=== PATIENT | male | born 1940 | race African-American/Black ===

== ENCOUNTER → 2016-10-11 | Outpatient (CLI) | payer BC ==
[~2016-10-11] MED LIST: ATOR-26 PO; CALC500C70 PO; CELE100C PO; DABI150C PO; FERR1TAB23 PO; FURO-85 PO; GABA400C PO; GLC500 PO; GLCSC750600 PO; LISI-725 PO; METH500T PO; METO25TA56 PO; OXYC-609; OXYC1TAB3 PO; PRLSR20 PO; ZNF/4 PO; [UNRECOGNIZED DRUG - OTHER] PO
== END | disposition home or self-care (01) ==
LOC: C.RDSM 11:40
PROVIDERS: ATTEND Physical Medicine & Rehabilitation
DX: M43.16 Spondylolisthesis, lumbar region (principal)

== ENCOUNTER → 2016-10-31 | Day surgery (SDC) | payer BC ==
[2016-10-18 15:51] VITALS: Ht 180.3 cm; Wt 81.8 kg
[~2016-10-31] VITALS: Ht 180.3 cm; Wt 81.8 kg
[~2016-10-31] MED LIST changes: -GLC500 PO; +IOPAMIDOL INJ 61% 15 ML VIAL ONE; +LIDOCAINE HCL 1% MPF 5 ML VIAL ONE; +SODIUM CHLORIDE 0.9% INJ 10 ML VIAL ONE; -ZNF/4 PO
[2016-10-31 14:08] VITALS: BP 124/71; PULSE 50; TEMP 36.7; O2SAT 98
== END | disposition home or self-care (01) ==
LOC: X.SURG 13:50
PROVIDERS: ATTEND Physical Medicine & Rehabilitation
DX: M43.16 Spondylolisthesis, lumbar region (principal); Z53.09 Procedure and treatment not carried out because of other contraindication; M54.16 Radiculopathy, lumbar region; K21.9 Gastro-esophageal reflux disease without esophagitis; E11.9 Type 2 diabetes mellitus without complications; I10 Essential (primary) hypertension; E78.9 Disorder of lipoprotein metabolism, unspecified; Z90.49 Acquired absence of other specified parts of digestive tract; Z98.890 Other specified postprocedural states

== ENCOUNTER → 2016-12-05 | Day surgery (SDC) | payer BC ==
[2016-11-08 07:32] VITALS: Ht 180.3 cm; Wt 81.8 kg
[~2016-12-05] VITALS: Ht 180.3 cm; Wt 81.8 kg
--- NOTE | 2016-12-05 14:47 | History & Physical Bridge - [place] ---
H&P Re-Evaluation Bridge Note: I have examined the patient, reviewed the History & Physical and in the interval since the performance of the History & Physical I have noted the following changes of clinical significance: No changes noted
--- NOTE | 2016-12-05 15:24 | Discharge Instructions ---
Discharge Instructions Date of Service Dec 05, 2016. Visit Reason for Visit: Lumbar Radiculopathy Discharge Discharge Diagnosis / Problem: Right leg pain Discharge Goals Goal(s): Decrease discomfort, Improve function Medications Stopped Medications Name(s): Per pt stopped taking pradaxa 3 days ago as instructed. Activity Recommendations Activity Limitations: resume your previous activity Anesthesia . Post Anesthesia Instructions: If you have had General Anesthesia or IV Sedation: * Do not drive today. * Resume driving when surgeon permits. * Do not make important decisions or sign legal documents today. * Call surgeon for: 1. Temperature elevations greater than 101 degrees F. 2. Uncontrollable pain. 3. Excessive bleeding. 4. Persistent nausea and vomiting. 5. Medication intolerance (nausea, vomiting or rash). * For nausea and vomiting use only clear liquids such as: tea, soda, bouillon until nausea subsides, then gradually increase diet as tolerated. * If you have any concerns or questions, call your surgeon's office. If physician is unavailable and it is an emergency, call 911 or go to the nearest emergency room. . Diet Recommendations Recommended Home Diet: resume previous diet Procedures Procedures Performed: Lumbar Epidural Steroid Injection Pending Studies Studies pending at discharge: no Medical Emergencies . Who to Call and When: Medical Emergencies: If at any time you feel your situation is an emergency, please call 911 immediately. . Non-Emergent Contact Non-Emergency issues call your: Specialist . . "Provider Documentation" section prepared by Ronnie Hanley. .
[2016-12-05 15:26] VITALS: TEMP 36.8
[2016-12-05 15:33] VITALS: BP 117/71; PULSE 58; O2SAT 96
--- NOTE | 2016-12-05 17:18 | OPERATIVE REPORT ---
DATE OF OPERATION: 12/05/2016 PREOPERATIVE DIAGNOSIS: Lumbar spondylolisthesis with a grade 1 L4-L5, grade 2 L3-L4 with a right L5 radiculopathy. POSTOPERATIVE DIAGNOSIS: Same. PROCEDURE: Right paramedian L5-S1 intralaminar epidural steroid injection under fluoroscopic guidance. INDICATIONS: The patient is a 75-year-old -[place] male presents today with right lower extremity radiculopathy. He has had a lumbar decompression of his back, which was postoperatively complicated by spondylolisthesis. He has persistent right lower extremity radicular pain. He presents today for an injection to provide him with relief as he had gotten nice relief from the epidural a number of months ago, the effect has worn off. PHYSICAL EXAMINATION: GENERAL: Pleasant male seated comfortably. MUSCULOSKELETAL: Lumbar paraspinal muscles were palpated. He has difficulty moving from a sit to stand position. He has no focal weakness and negative seated straight leg raises. CONSENT: Verbal and written consent was obtained from the patient. Risks and benefits were reviewed. Risks include but are not limited to abscess, epidural abscess, epidural hematoma, allergic reaction, and dural puncture. The patient wishes to proceed. DESCRIPTION OF PROCEDURE: The patient was taken back to the special procedures room of the [facility], where he was maintained in a prone position. Backside was cleansed with Betadine x3 and a dry sterile dressing was applied. Fluoroscope was used to identify the L5-S1 intralaminar space and overlying skin was anesthetized on the right side with 4 mL of lidocaine 1% with a 25-gauge 1.5-inch needle. A 22-gauge 3.5-inch Tuohy needle was then directed down towards the intralaminar space. It was advanced under lateral fluoroscopic guidance and loss of resistance was noted at a depth of 6.5 cm. Isovue-300 contrast 1 mL was injected in which demonstrated epidural uptake pattern, which was confirmed with both AP and lateral views. He then underwent injection after negative aspiration of 40 mg of Depo-Medrol and 4 mL of preservative free sodium chloride. Injection was very sensitive to him and done very slowly as he reproduced a familiar pressure feeling into the leg and back. DISPOSITION: 1. The patient is taken out into the discharge recovery area where he will be discharged home once discharge criteria have been met. 2. Follow up in the [facility] office in 2-4 weeks. I attest to the content of the Intraoperative Record and any orders documented therein. Any exceptio ns are noted below.
== END | disposition home or self-care (01) ==
LOC: X.SURG 13:56
PROVIDERS: ATTEND Physical Medicine & Rehabilitation
DX: M43.16 Spondylolisthesis, lumbar region (principal); M54.16 Radiculopathy, lumbar region

== ENCOUNTER → 2016-12-27 | Outpatient (CLI) | payer BC ==
[~2016-12-27] MED LIST changes: -IOPAMIDOL INJ 61% 15 ML VIAL ONE; -LIDOCAINE HCL 1% MPF 5 ML VIAL ONE; -SODIUM CHLORIDE 0.9% INJ 10 ML VIAL ONE
--- NOTE | 2016-12-27 15:36 | DIAGNOSTIC IMAGING REPORT ---
ABDOMEN AND PELVIS CT WITH ORAL CONTRAST CT DOSE: 534.25 mGy.cm HISTORY: Left lower quadrant abdominal pain. INGUINAL HERNIA TECHNIQUE: Multiaxial CT images of the abdomen and pelvis were performed following the use of oral contrast. COMPARISON STUDY: None. FINDINGS: The lung bases are essentially clear. Posterior decompression within the lumbar spine. Left L3 pars defect with the associated grade I/II anterolisthesis of L3 on L4. Severe disc space narrowing at L3-L4. There is also severe central canal narrowing at L3-L4 due to the spondylolisthesis. The heart is mildly enlarged. The unenhanced liver, spleen, gallbladder, and pancreas are within normal limits. Nodular thickening of the left gland. A 1.4 cm benign right adrenal adenoma. No retroperitoneal lymphadenopathy. Calcified plaque within the normal caliber abdominal aorta. The bladder is unremarkable. The prostate gland is enlarged. Tiny fat-containing left inguinal hernia. Surgical clips within the right lower quadrant. No bowel wall thickening or obstruction. Normal right kidney. There are 2 hypodense lesions within the left kidney with the largest in the upper pole measuring 2.2 cm. These are incomplete characterized on this noncontrast study but favor cysts. Mild fullness within the left upper pole collecting system. There is also a 5.9 x 3.5 cm cystic focus within the left renal sinus. IMPRESSION: 1. No bowel wall thickening or obstruction. 2. Enlarged prostate. 3. Tiny fat-containing left inguinal hernia. 4. Postoperative changes within the lumbar spine. There is severe central canal narrowing at L3-L4 due to the grade I/II anterolisthesis. 5. A 5.9 x 3.5 cm cystic structure within the left renal sinus. This favors a parapelvic cyst. However, a congenital UPJ obstruction could also have a similar appearance. There are no obstructing stones identified. 6. Mild cardiomegaly. Electronically signed by: Felix Hall M.D. 12/27/2016 3:35 PM Dictated Date/Time: 12/27/2016 3:19 PM
== END | disposition home or self-care (01) ==
LOC: C.CTS 14:30
PROVIDERS: ATTEND Nurse Practitioner Adult Health
DX: K40.90 Unilateral inguinal hernia, without obstruction or gangrene, not specified as recurrent (principal); N40.0 Benign prostatic hyperplasia without lower urinary tract symptoms

== ENCOUNTER → 2017-02-11 | Day surgery (SDC) | payer BC ==
[2017-02-06 11:12] VITALS: Ht 177.8 cm; Wt 81.8 kg
[~2017-02-11] VITALS: Ht 177.8 cm; Wt 81.8 kg
[~2017-02-11] MED LIST changes: +FENTANYL CITRATE INJ 50 MCG/1 ML 2 ML VIAL ONE; +LIDOCAINE HCL 2% 2 ML VIAL (20MG/ML) ONE; -OXYC-609; +PROPOFOL IV EMULSION 10 MG/ML 20 ML VIAL IV ONE
--- NOTE | 2017-02-11 13:39 | Endo History and Physical ---
History & Physical Date of Service: Feb 11, 2017. Chief Complaint: GERD Referring Physician: Dr. Hema Poe History of Present Illness For EGD Past Medical History Diabetes, Arthritis, Reflux, High Cholesterol, Sleep Apnea, Hypertension Past Surgical History Hx Cardiac Surgery: No Hx Internal Defibrillator: No Hx Pacemaker: No Hx Abdominal Surgery: Yes (APPY) Hx of Implantable Prosthesis: No Hx Post-Op Nausea and Vomiting: No Hx Cancer Surgery: No Hx Thoracic Surgery: No Hx Orthopedic: Yes (RT SHOULDER, RT/LT CTR, LAMINECTOMY) Hx Urinary Tract Surgery: No Family History None Social History Smoking Status: Former Smoker Hx Substance Use: No Hx Alcohol Use: Yes (RARELY) Allergies Coded Allergies: No Known Allergies (Verified , 02/06/17) Current Medications Reported Home Medications Medications Dose Route/Sig Max Daily Dose Days Date Category Roxicodone Ir (Oxycodone HCl) 5 Mg Tab 5 Mg PO Q8H PRN 02/06/17 Reported [Vitamin C Iron] 1 Tab PO QAM 10/18/16 Reported Lopressor (Metoprolol Tartrate) 25 Mg Tab 0.5 Tab PO BID 10/18/16 Reported Pradaxa (Dabigatran Etexilate Mesylate) 150 Mg Cap 150 Mg PO BID 10/18/16 Reported Iron (Ferrous Sulfate) 325 Mg Tab 1 Tab DAILY 04/11/16 Reported Os-Ubaldo 500 Plus D (Calcium/Vitamin D) Tab 1 Tab PO DAILY 04/11/16 Reported Lipitor (Atorvastatin Calcium) 80 Mg Tab 80 Mg PO QPM 05/28/15 Reported Lasix (Furosemide) 20 Mg Tab 20 Mg PO BID 05/03/15 Reported Neurontin (Gabapentin) 400 Mg Cap 400 Mg PO BID 05/03/15 Reported Celebrex (Celecoxib) 100 Mg Cap 100 Mg PO BID 05/03/15 Reported Robaxin (Methocarbamol) 500 Mg Tab 500 Mg PO BID 05/03/15 Reported Glucosamine/Chondroitin 750 Mg/600 Mg Cap 1 Tab PO BID 01/24/11 Reported Prilosec (Omeprazole) 20 Mg Capcr 20 Mg PO BID 01/24/11 Reported Zestril (Lisinopril) 20 Mg Tab 20 Mg PO BID 01/24/11 Reported Vital Signs Weight (Kilograms): 81.82 Height (Feet): 5 Height (Inches): 10 Date Time Temp Pulse Resp B/P (MAP) Pulse Ox O2 Delivery O2 Flow Rate FiO2 02/11/17 13:27 36.7 61 20 123/79 (94) 96 Room Air Physical Exam General Appearance: WD/WN Respiratory/Chest: Respiratory effort: no dyspnea Cardiovascular: Heart Auscultation: RRR Abdomen: Inspection & Palpation: soft (GERD for EGD) Assessment and Plan GERD for EGD
--- NOTE | 2017-02-11 13:59 | Discharge Instructions ---
Endoscopy Patient Instructions Date / Procedure(s) Performed Feb 11, 2017. EGD Allergy Information Coded Allergies: No Known Allergies (Verified , 02/06/17) Discharge Date / Findings Feb 11, 2017. Gastric and GEJ polyps Medication Instructions Stopped Medication(s): took Pradaxa 02/11 at 08:00 Restart Stopped Medication(s): resume meds Reported Home Medications Medications Dose Route/Sig Max Daily Dose Days Date Category Roxicodone Ir (Oxycodone HCl) 5 Mg Tab 5 Mg PO Q8H PRN 02/06/17 Reported [Vitamin C Iron] 1 Tab PO QAM 10/18/16 Reported Lopressor (Metoprolol Tartrate) 25 Mg Tab 0.5 Tab PO BID 10/18/16 Reported Pradaxa (Dabigatran Etexilate Mesylate) 150 Mg Cap 150 Mg PO BID 10/18/16 Reported Iron (Ferrous Sulfate) 325 Mg Tab 1 Tab DAILY 04/11/16 Reported Os-Ubaldo 500 Plus D (Calcium/Vitamin D) Tab 1 Tab PO DAILY 04/11/16 Reported Lipitor (Atorvastatin Calcium) 80 Mg Tab 80 Mg PO QPM 05/28/15 Reported Lasix (Furosemide) 20 Mg Tab 20 Mg PO BID 05/03/15 Reported Neurontin (Gabapentin) 400 Mg Cap 400 Mg PO BID 05/03/15 Reported Celebrex (Celecoxib) 100 Mg Cap 100 Mg PO BID 05/03/15 Reported Robaxin (Methocarbamol) 500 Mg Tab 500 Mg PO BID 05/03/15 Reported Glucosamine/Chondroitin 750 Mg/600 Mg Cap 1 Tab PO BID 01/24/11 Reported Prilosec (Omeprazole) 20 Mg Capcr 20 Mg PO BID 01/24/11 Reported Zestril (Lisinopril) 20 Mg Tab 20 Mg PO BID 01/24/11 Reported Provider Instructions Activity Restrictions - No exercising or heavy lifting for 24 hours. - Do not drink alcohol the day of the procedure. - Do not drive a car or operate machinery until the day after the procedure. - Do not make any important decisions or sign important papers in 24 hours after the procedure. Following Day: - Return to full activity which may include returning to work/school. Diet Start your diet with liquids and light foods (jello, soup, juice, toast). Then eat your usual diet if not nauseated. Treatment For Common After Affects For mild abdominal pain, bloating, or excessive gas: - Rest - Eat lightly - Lie on right side Follow-Up Information Follow-up with Dr. Hema Poe as scheduled Anesthesia Information What You Should Know You have had a procedure that required some medicine to reduce anxiety and discomfort. This treatment is called moderate sedation. After receiving the treatment, you may be sleepy, but you will be able to breathe on your own. The effects of the treatment may last for several hours. Follow these instructions along with Activity/Diet recommendations noted above: * Do NOT do anything where dizziness or clumsiness would be dangerous. * Rest quietly at home today, then you can be up and about tomorrow. * Have a responsible person stay with you the rest of today. * You may have had an I.V. today. If so, you may take the dressing off later today. Recommendations Call your doctor if: * Trouble breathing * Continuous vomiting for more than 24 hours * Temperature above 101 degrees * Severe abdominal pain or bloating * Pain not relieved by pain medicine ordered * There is increased drainage or redness from any incision * A large amount of rectal bleeding greater than 2-3 tablespoons. (If you had a polyp/s removed or have hemorrhoids, a small amount of blood - from the rectum is to be expected.) * You have any unanswered questions or concerns. IN THE EVENT OF A SERIOUS EMERGENCY, GO TO THE NEAREST EMERGENCY ROOM Your discharge instructions were prepared by provider Jacob Parks. Patient Instructions Signature Page Ernestina Givens Patient (or Guardian) Signature/Date: I have read and understand the instructions given to me by my caregivers. Caregiver/RN/Doctor Signature/Date: The above-named patient and/or guardian has received patient instructions on this date. + Original Patient Signature Page (only) stays with chart. Please make copy for patient.
--- NOTE | 2017-02-11 14:03 | GI REPORT ---
Procedure Date: 02/11/2017 1:35 PM Procedure: Upper GI endoscopy Indications: Heartburn, Suspected esophageal reflux Medicines: Fentanyl 25 micrograms IV, Propofol total dose 140 mg IV, Lidocaine 60 mg IV, Phenylephrine 150 mcg IV Complications: No immediate complications. Estimated Blood Loss: Estimated blood loss was minimal. Procedure: Pre-Anesthesia Assessment: - Prior to the procedure, a History and Physical was performed, and patient medications, allergies and sensitivities were reviewed. The patient's tolerance of previous anesthesia was reviewed. - The risks and benefits of the procedure and the sedation options and risks were discussed with the patient. All questions were answered and informed consent was obtained. After obtaining informed consent, the endoscope was passed under direct vision. Throughout the procedure, the patient's blood pressure, pulse, and oxygen saturations were monitored continuously. The scope was introduced through the mouth, and advanced to the second part of duodenum. The upper GI endoscopy was accomplished without difficulty. The patient tolerated the procedure well. Findings: A single 4 mm mucosal nodule with a localized distribution was found at the gastroesophageal junction. Biopsies were taken with a cold forceps for histology. Estimated blood loss was minimal. Multiple 4 mm pedunculated and sessile polyps with no bleeding and no stigmata of recent bleeding were found in the gastric body. The examined duodenum was normal. Impression: - Mucosal nodule found in the esophagus. Biopsied. - Multiple gastric polyps. - Normal examined duodenum. Recommendation: - Discharge patient to home (ambulatory). - Continue present medications. - Await pathology results. - Return to primary care physician APRIL. Jacob Parks M.D. Jacob Parks MD 02/11/2017 2:03:29 PM This report has been signed electronically. Note Initiated On: 02/11/2017 1:35 PM I attest to the content of the Intraoperative Record and orders documented therein, exceptions below
--- NOTE | 2017-02-11 14:29 | Anesthesiology Progress Note ---
Anesthesia Post Op Note Date & Time Feb 11, 2017 at 14:29 Vital Signs Pain Intensity: 0 Vital Signs Past 12 Hours Date Time Temp Pulse Resp B/P (MAP) Pulse Ox O2 Delivery O2 Flow Rate FiO2 02/11/17 14:21 60 20 102/67 (79) 94 Room Air 02/11/17 14:07 61 20 102/63 (76) 96 Room Air 02/11/17 13:27 36.7 61 20 123/79 (94) 96 Room Air Notes Mental Status: alert / awake / arousable, participated in evaluation Pt Amnestic to Procedure: Yes Nausea / Vomiting: adequately controlled Pain: adequately controlled Airway Patency, RR, SpO2: stable & adequate BP & HR: stable & adequate Hydration State: stable & adequate Anesthetic Complications: no major complications apparent
[2017-02-11 14:36] VITALS: BP 109/69; PULSE 62; O2SAT 95
== END | disposition home or self-care (01) ==
LOC: C.GI 13:05
PROVIDERS: ATTEND Internal Medicine Gastroenterology
DX: K21.9 Gastro-esophageal reflux disease without esophagitis (principal); K22.8 Other specified diseases of esophagus; K31.7 Polyp of stomach and duodenum; E11.9 Type 2 diabetes mellitus without complications; I10 Essential (primary) hypertension; E78.00 Pure hypercholesterolemia, unspecified; I48.91 Unspecified atrial fibrillation; Z79.01 Long term (current) use of anticoagulants; Z90.89 Acquired absence of other organs; Z98.890 Other specified postprocedural states; Z87.891 Personal history of nicotine dependence

== ENCOUNTER → 2017-05-16 | Day surgery (SDC) | payer BC ==
[2017-04-30 14:35] VITALS: Ht 177.8 cm; Wt 81.8 kg
[~2017-05-16] VITALS: Ht 177.8 cm; Wt 81.8 kg
[~2017-05-16] MED LIST changes: -FENTANYL CITRATE INJ 50 MCG/1 ML 2 ML VIAL ONE; +IOPAMIDOL INJ 61% 15 ML VIAL ONE; +LIDOCAINE HCL 1% MPF 5 ML VIAL ONE; -LIDOCAINE HCL 2% 2 ML VIAL (20MG/ML) ONE; -PROPOFOL IV EMULSION 10 MG/ML 20 ML VIAL IV ONE; +SODIUM CHLORIDE 0.9% INJ 10 ML VIAL ONE
[2017-05-16 15:52] VITALS: TEMP 36.8
--- NOTE | 2017-05-16 15:55 | Discharge Instructions ---
Discharge Instructions Date of Service May 16, 2017. Visit Reason for Visit: Lumbar Radiculopathy Discharge Discharge Diagnosis / Problem: low back pain Discharge Goals Goal(s): Decrease discomfort, Improve function Medications Stopped Medications Name(s): Prodaxin Activity Recommendations Activity Limitations: resume your previous activity Anesthesia . Post Anesthesia Instructions: If you have had General Anesthesia or IV Sedation: * Do not drive today. * Resume driving when surgeon permits. * Do not make important decisions or sign legal documents today. * Call surgeon for: 1. Temperature elevations greater than 101 degrees F. 2. Uncontrollable pain. 3. Excessive bleeding. 4. Persistent nausea and vomiting. 5. Medication intolerance (nausea, vomiting or rash). * For nausea and vomiting use only clear liquids such as: tea, soda, bouillon until nausea subsides, then gradually increase diet as tolerated. * If you have any concerns or questions, call your surgeon's office. If physician is unavailable and it is an emergency, call 911 or go to the nearest emergency room. . Diet Recommendations Recommended Home Diet: resume previous diet Procedures Procedures Performed: LUMBAR EPIDURAL STEROID INJECTION. Pending Studies Studies pending at discharge: no Medical Emergencies . Who to Call and When: Medical Emergencies: If at any time you feel your situation is an emergency, please call 911 immediately. . Non-Emergent Contact Non-Emergency issues call your: Specialist . . "Provider Documentation" section prepared by Ronnie Hanley. .
[2017-05-16 16:06] VITALS: BP 124/74; PULSE 53; O2SAT 98
--- NOTE | 2017-05-16 16:30 | OPERATIVE REPORT ---
DATE OF OPERATION: 05/16/2017 PREOPERATIVE DIAGNOSES: Grade-2 L3-L4 spondylolisthesis and grade-1 L4-L5 spondylolisthesis with a right L5 radiculopathy. POSTOPERATIVE DIAGNOSES: Same. PROCEDURE: Right paramedian L5-S1 intralaminar epidural steroid injection under fluoroscopic guidance. INDICATIONS: The patient is a 76-year-old -[place] male who presents today for an epidural injection. He has received them in the past and typically gets 80% relief for a number of months down the leg in terms of radicular pain. One was done a number of months ago and the pain has returned and he wishes to proceed with an epidural steroid injection. PHYSICAL EXAMINATION: GENERAL: Pleasant male seated comfortably. MUSCULOSKELETAL: Lumbar paraspinal muscles were palpated. He has some decreased subjective sensation in the right L5 dermatomal distribution. Negative seated straight leg raises. No focal weakness. CONSENT: Verbal and written consent was obtained from the patient. Risks and benefits were reviewed. Risks include, but are not limited to epidural abscess, epidural hematoma, allergic reaction, and dural puncture. He wishes to proceed. DESCRIPTION OF PROCEDURE: The patient was taken back into the special procedures room of the [facility], where he was maintained in a prone position. Backside was cleansed abated Betadine x3 and a dry sterile dressing was applied. Fluoroscope was used to identify the L5-S1 intralaminar space. Overlying skin on the right side was anesthetized with 4 mL of lidocaine 1% with a 25-gauge 1-1/2 inch needle. A 22-gauge 3-1/2 inch Tuohy needle was then directed down towards the intralaminar space. It was advanced under lateral fluoroscopic guidance. Loss of resistance was noted at a depth of 6.5 cm. Isovue-300 contrast 1 mL was injected in which demonstrated epidural uptake pattern. The injection was done very slowly as it was very sensitive going. A total of 40 mg of Depo-Medrol and 4 mL of preservative free were injected in after negative aspiration. DISPOSITION: 1. The patient was taken out into the discharge recovery area, where he will be discharged home once discharge criteria have been met. 2. Follow up in the [facility] office in 2-4 weeks. I attest to the content of the Intraoperative Record and any orders documented therein. Any exception s are noted below.
== END | disposition home or self-care (01) ==
LOC: X.SURG 14:12
PROVIDERS: ATTEND Physical Medicine & Rehabilitation
DX: M43.16 Spondylolisthesis, lumbar region (principal); M54.16 Radiculopathy, lumbar region

== ENCOUNTER → 2017-08-21 | Outpatient (CLI) | payer BC ==
[~2017-08-21] MED LIST changes: -IOPAMIDOL INJ 61% 15 ML VIAL ONE; -LIDOCAINE HCL 1% MPF 5 ML VIAL ONE; -SODIUM CHLORIDE 0.9% INJ 10 ML VIAL ONE
--- NOTE | 2017-08-21 17:17 | DIAGNOSTIC IMAGING REPORT ---
MRI LUMBAR SPINE W/O CONTRAST CLINICAL HISTORY: M43.16 Spondylolisthesis, lumber REGION LOW BACK PAIN WITH RIGHT LEG RADICULOPATHY. TECHNIQUE: Sagittal and axial T1, T2 and STIR images were obtained. COMPARISON STUDY: February 2011 OBSERVATIONS: The vertebral bodies and posterior elements appear intact. There is no abnormal bony signal present to suggest a marrow replacement process. There is a dilated left renal pelvis versus large parapelvic cyst. This remain similar to a prior CT scan performed in December 2016 L1-2: There is a mild circumferential disc bulge. There is mild spinal canal narrowing. There is no significant foraminal stenosis. L2-3: There is a mild circumferential disc bulge. There is no significant spinal or foraminal stenosis. L3-4: There is a grade 2/4 spondylolisthesis of L3 on L4. There is moderate spinal stenosis. There is severe bilateral foraminal narrowing. L4-5: There is a minimal grade 1 spondylolisthesis of L4 on L5. There is a mild circumferential disc bulge. There is no significant spinal stenosis. There is mild to moderate bilateral foraminal narrowing. L5-S1: There is a mild circumferential disc bulge. There is no significant spinal or foraminal stenosis. There are postsurgical changes of a posterior decompression extending from L2 through L5. The conus medullaris and cauda equina appear normal. IMPRESSION: 1. Slight progression in the multilevel spondylitic changes. The study is most significant for a grade 2/4 spondylolisthesis of L3 on L4. This results in moderate spinal stenosis and severe bilateral foraminal narrowing. There is also bilateral foraminal narrowing at the L4-5 level. Electronically signed by: Sriram Payne M.D. 08/21/2017 5:16 PM Dictated Date/Time: 08/21/2017 5:07 PM
== END | disposition home or self-care (01) ==
LOC: C.MRI 15:51
PROVIDERS: ATTEND Physical Medicine & Rehabilitation
DX: M43.16 Spondylolisthesis, lumbar region (principal); M54.16 Radiculopathy, lumbar region; M48.061 Spinal stenosis, lumbar region without neurogenic claudication

== ENCOUNTER → 2017-11-01 | Outpatient (CLI) | payer BC ==
--- NOTE | 2017-11-01 11:07 | DIAGNOSTIC IMAGING REPORT ---
LUMBAR SPINE 5 VIEWS HISTORY: LUMBAR SPINE PAIN COMPARISON: Lumbar spine MRI 08/21/2017. Lumbar spine radiograph 10/11/2016. FINDINGS: There is no fracture. Bilateral L3 spondylolysis with 1.6 cm of anterolisthesis of L3 on L4. This remains unchanged. Severe disc space narrowing at L3-L4. Moderate disc space narrowing at L4-L5. There is 6 mm of anterolisthesis of L4 and L5. This is also unchanged. Remaining disc spaces are preserved. No fractures identified. Minimal levoscoliosis. The sacrum is intact. Disc spaces are preserved. Moderate to severe facet osteoarthritis seen from L3 through L5. IMPRESSION: 1. No significant change compared to the prior studies. 2. Bilateral L3 spondylolysis with associated grade 2/3 anterolisthesis remains unchanged. 3. There is also grade I anterolisthesis of L4 and L5, unchanged. 4. No change in the degenerative changes as described above. Electronically signed by: Felix Hall M.D. 11/01/2017 11:05 AM Dictated Date/Time: 11/01/2017 11:02 AM
== END | disposition home or self-care (01) ==
LOC: C.RDSM 09:19
PROVIDERS: ATTEND Orthopaedic Surgery
DX: M43.16 Spondylolisthesis, lumbar region (principal)

== ENCOUNTER → 2017-11-12 | Outpatient (CLI) | payer BC ==
--- NOTE | 2017-11-12 11:13 | DIAGNOSTIC IMAGING REPORT ---
L HAND MIN 3 VIEWS CLINICAL HISTORY: LEFT HAND PAIN COMPARISON: None. DISCUSSION: The bony mineralization appears normal. No acute fractures are visualized. There are small particular calcifications adjacent to the third fourth metacarpal phalangeal joints. There is a small erosion involving the distal aspect of the middle phalanx of the index finger. IMPRESSION: 1. No acute fractures 2. No destructive lesions are visualized. Electronically signed by: Sriram Payne M.D. 11/12/2017 11:12 AM Dictated Date/Time: 11/12/2017 11:11 AM
== END | disposition home or self-care (01) ==
LOC: C.RDSM 10:00
PROVIDERS: ATTEND Physician Assistant
DX: M79.642 Pain in left hand (principal)

== ENCOUNTER 2019-05-08 06:48 | Inpatient (IN) ==
--- NOTE | 2019-05-07 14:02 | Anesthesiology Consultation ---
Date of Service May 07, 2019 Assessment & Plan (1) Encounter for pre-operative examination: Chart Review Chart Review: Acceptable Risk for Surgery and Patient NOT seen in Pre Admission Testing Consults Requested none ASA ASA4 History Surgery Operation Date: 05/08/19 07:45 Proposed Procedures p Cardioversion 3D Modeler w/Anesthesia - Gustabo Llamas DO Height/Weight Height: 5 ft 10 in Weight: 81.647 kg Allergies Allergy/AdvReac Type Severity Reaction Status Date / Time No Known Allergies Allergy Mild Verified 05/05/19 14:57 Medications Home Medications Medication Instructions Recorded Confirmed Last Taken Pradaxa 150 mg PO BID 09/17/18 05/05/19 12/08/18 21:00 atorvastatin 80 mg PO QPM 09/17/18 05/05/19 12/08/18 21:00 calcium carbonate-vitamin D3 1 tab PO QAM 09/17/18 05/05/19 12/08/18 09:00 [Calcium 500 + D] celecoxib [Celebrex] 100 mg PO BID 09/17/18 05/05/19 12/08/18 21:00 ferrous sulfate [iron] 325 mg PO DAILY 09/17/18 05/05/19 12/08/18 09:00 gabapentin 400 mg PO BID 09/17/18 05/05/19 12/08/18 21:00 glucosamine-chondroitin 1 tab PO DAILY 09/17/18 05/05/19 12/08/18 21:00 omeprazole 20 mg PO BID 09/17/18 05/05/19 12/08/18 21:00 oxycodone 5 mg PO TID 09/17/18 05/05/19 12/08/18 09:00 torsemide 40 mg PO 1500 09/17/18 05/05/19 12/08/18 09:00 tafamidis meglumine [Vyndaqel] 80 mg PO 1500 04/15/19 05/05/19 Unknown metoprolol succinate 25 mg PO BID 05/05/19 05/05/19 Unknown Past Medical History Medical History Atrial fibrillation new onset (2018) BPH (benign prostatic hyperplasia) Chronic back pain Congestive heart failure Degenerative disc disease Diverticular disease GERD (gastroesophageal reflux disease) Hx of atrial flutter 2015 [facility] per medical record Hypertension On anticoagulant therapy Osteoarthritis Scoliosis Spinal stenosis Past Family History Family History Mother FHx: breast cancer Grandmother (Paternal) FHx: stroke Grandmother (Paternal) FHx: myocardial infarction Past Surgical History Surgical History History of appendectomy History of arthroscopy RT SHOULDER History of back surgery LUMBAR SPINE History of cardiac cath SUMMER 2017 - [facility] - REASON? - NO STENTS/ANGIOPLASTY - DR. LLAMAS History of carpal tunnel release BL History of cataract surgery RT/LEFT History of colonoscopy History of esophagogastroduodenoscopy (EGD) History of tooth extraction S/P epidural steroid injection Lumbar Social History Smoking Status: Former smoker tobacco type: cigarettes Smoking End Date: quit 35 years ago Hx Alcohol Use: Yes alcohol intake frequency: holidays/special occasions only Hx Substance Use: No substance use type: does not use Testing Electrocardiogram Date: 04/27/19 Findings: + AFIB @ (83) and + no change from (since 01/30/18 AF has replaced SR) Septal infarct , LAD. Chest X-Ray Date: 04/29/19 Findings: + cardiomegaly and + pleural effusion (right) Echocardiogram Date: 04/27/19 EF: 25-29% LV Function: severe concentric hypertrophy Valvular Disease: + MR (mild MR,TR) bicusdpid aortic valve without stenosis.
--- NOTE | 2019-05-08 07:29 | History & Physical Bridge Note ---
Date of Service May 08, 2019 History & Physical Bridge Note I have examined the patient, reviewed the History & Physical and in the interval since the performance of the History & Physical I have noted the following changes of clinical significance: Vitals: HR 90, BP 103/81. CV: irregular, no murmur Lungs: decreased BS R base (unchanged compared to outpt visit 1 week ago) Ext: 2+ bilateral LE edema, unchanged compared to 1 week ago Labs: Na 141, K 3.9, Cl 96, glucose 139, Buv 40, Creatinine 2.2 Hgb 15.3, Hct 45 Impression: AFIB / Flutter, ongoing volume overload Plan: proceed with DCCV. Informed consent obtained. Pt elects to proceed.
--- NOTE | 2019-05-08 07:50 | Cardioversion ---
Date of Service May 08, 2019 Electrical Cardioversion Rpt Electrical Cardioversion Report Date of Surgery May 08, 2019 Pre & Post Diagnosis Preprocedure diagnosis: symptomatic atrial fibrillation / atrial flutter Postprocedure diagnosis: successful conversion to sinus rhythm. Operation Date: 05/08/19 07:45 Procedure Direct current cardioversion note: After informed consent was obtained and a time out was performed, the patient was sedated with the assistance of the anesthesia team receiving 20 mg of IV lidocaine and 40 mg of IV propofol. Patient underwent direct current cardioversion receiving 200 J of biphasic energy x 1 dose with successful conversion to sinus rhythm. Occasional PVCs noted post cardioversion. Post procedure EKG reveals sinus bradycardia at 56 bpm with first degree AV block of 242 ms, and LBBB, QRS duration 142 ms. The left bundle branch block is new compared to prior Sinus rhythm tracings. Plan: Observe post procedure. Administer furosemide 20 mg IV for edema prior to discharge once able to ambulate. Upward Bound Director Gustabo Llamas DO Shop Technician none Estimated Blood Loss 0 Findings Consistent with Post-Op Diagnosis Anesthesia Type MAC Complications none
[2019-05-08] MEDS ORDERED: FUROSEMIDE 20 MG in SYRINGE 0 ML IV ONE (07:51)
[2019-05-08] MEDS ORDERED: ATROPINE SULFATE 0.1 MG/ML 10ML SYR IV ONE ×2 (07:52→09:20)
[2019-05-08] MEDS ORDERED: LIDOCAINE HCL 2% 2 ML VIAL/AMP(20MG/ML) INFIL ONE (08:10)
[2019-05-08] MEDS ORDERED: PROPOFOL IV EMULSION 10 MG/ML 20 ML VIAL IV ONE (08:10)
--- NOTE | 2019-05-08 09:22 | Anesthesiology Progress Note ---
Date of Service May 08, 2019 Anesthesia Post Procedure Vital Signs Vital Signs: Temp Pulse Resp BP Pulse Ox 05/08/19 08:40 63 14 111/81 97 05/08/19 08:25 68 14 102/71 97 05/08/19 08:10 57 L 14 114/79 97 05/08/19 07:55 38 L 14 104/77 96 05/08/19 07:40 61 14 97/71 L 96 05/08/19 07:19 36.7 C 89 16 103/81 94 Transfer of Care Handoff Completed per policy Notes Mental Status: alert / awake / arousable and participated in evaluation Patient Amnestic to Procedure: Yes Nausea / Vomiting: adequately controlled Pain: adequately controlled Airway Patency, RR, SpO2: stable & adequate BP & HR: stable & adequate Hydration State: stable & adequate Anesthetic Complications: no major complications apparent
--- NOTE | 2019-05-08 10:10 | Discharge Summary ---
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 He is recently complained of a month of sensation of irregular heartbeat, decreased activity tolerance, and progressive fluid retention with lower extremity and abdominal edema, with 20 pound weight gain. He was seen as an outpatient by the undersigned a week ago on 05/01/2019 having had an echocardiogram and EKG a few days before. He was found to be in atrial fibrillation versus atypical atrial flutter with relatively controlled ventricular rates in the range of 70 to 80 bpm. This is been the first time and atrial arrhythmia has been documented since he was admitted with atrial flutter in June 2016. At that time, he had converted spontaneously to sinus rhythm. He had been anticoagulated with Pradaxa in the intervening years. Previously he was treated with metoprolol, however in February 2018 when he was diagnosed with heart failure, it was found that he did not tolerate slower heart rates and his metoprolol was weaned from metoprolol succinate 25 mg daily, to 12.5 mg daily, and then discontinued with a subsequent improvement in his subjective symptoms and improvement in his LVEF. With recurrence of the atrial arrhythmia noted a week ago, low-dose metoprolol was reinitiated with metoprolol succinate 12.5 mg twice daily. His outpatient diuretic dose had been titrated from torsemide 10 mg by mouth 1 time per day to 20 mg by mouth 2 times per day. Admission had been discussed week ago, but the patient's spouse has chronic medical needs and requires 24-hour supervision and he did not have help with her. Therefore we attempted to proceed with ongoing outpatient treatment. He presented for outpatient direct-current cardioversion today, with ongoing edema despite escalation in his oral diuretics. His creatinine which had been 1.6- week ago that increased to 2.2 on chemistry panel performed pre-cardioversion this morning 05/08/2019. Principal Diagnosis Acute decompensation of systolic heart failure, chronic systolic heart failure, T TR amyloid cardiomyopathy, atrial fibrillation, and sinus bradycardia Discharge Data Allergies Allergy/AdvReac Type Severity Reaction Status Date / Time No Known Allergies Allergy Mild Verified 05/05/19 14:57 Procedures Performed Operation Date: 05/08/19 07:45 Actual Procedures p Cardioversion - Gustabo Llamas DO Hospital Course (1) Atrial flutter: (2) Sinus bradycardia: (3) Acute on chronic systolic heart failure: (4) Familial transthyretin amyloid cardiomyopathy: The patient presented for outpatient direct-current cardioversion this morning. On arrival, atrial fibrillation, versus atypical atrial flutter was pr esent at a rate of 70 bpm. The patient received sedation with 40 mg of IV propofol, 20 mg of IV lidocaine was administered to reduce side effect of burning in the IV site as administered by anesthesia. The patient underwent synchronized direct-current cardioversion receiving 200 J of biphasic energy x1 dose. Post cardioversion, a salvos of 3-5 beats of ventricular rhythm had been observed, followed by sinus bradycardia in the range of 50 bpm. Shortly after the cardioversion, patient had 2 episodes of sinus bradycardia down to the 28-30 beats per minute range with associated tiredness, but no lightheadedness. He was in bed when these occurred. EKG revealed sinus bradycardia with first-degree AV block (KS interval 242 ms) he, left bundle branch block (QRS duration 144 ms). Left bundle branch block is new having progressed from an interventricular conduction delay noted on the patient's prior sinus rhythm EKG dating back to January 2018. The patient was admitted for observation and transferred to the telemetry unit. While in the telemetry unit, his rhythm has been monitored closely with noted episodes of atrial fibrillation in the range of 70 to 90 bpm, with offset to sinus bradycardia in the range of 50 bpm with an occasional conversion pause in the range of 2 to 3 seconds. He is currently asymptomatic, and in bed. Blood pressure remains at its typical baseline for him, as a systolic blood pressure has been in the range of 100 mmHg recently. Due to the complex nature of his cardiomyopathy with severe LV systolic dysfunction recently documented, and significant clinical decline, I recommend transfer to tertiary center for further assessment. The patient has been followed by Dr. Garza of the advanced heart failure program there. I had discussed the recent developments in the patient's condition with Dr. Garza last week, and we agreed the patient would benefit from tentative electrophysiology consultation for consideration of dual-chamber AICD for both heart rate support, and primary prevention of sudden cardiac . Given his left bundle branch block with wide QRS, consideration toward a cardiac recent conization device is likely indicated. At this time, I believe it is necessary for inpatient evaluation for cautious diuretic treatment given his low blood pressure and renal insufficiency, and elective physiology consultation as an inpatient for co nsideration of placement of TIRE GROOVER/AICD. I believe this is best considered to be performed at a tertiary center given the complex nature of the patient's case. Patient was agreeable to this. He has a friend who is going to keep an eye and his at home. I discussed the case with Dr Dean of Cardiology at [facility] who accepts the patient in transfer. Patient to be transferred by ACLS ground pending availability of the bed. Total Time Total Time Spent Total Time Spent (In Minutes): 30 Total Time Includes: Examination of the Patient, Discharge Planning, Medication Reconciliation and Communication With Other Providers Discharge Plan Discharge Items Reason For Visit: BRADYCARDIA, HEART FAILURE Discharge Diagnosis: Cardiomyopathy, acute on chronic systolic heart failure, bradycardia, left bundle branch block Activity: Per Instructions section Non-emergency contact: Pulp House Supervisor Call non-emergency contact if: you have any medication questions Follow-up/Referrals: Hema Poe [Primary Care Provider] - Diet: Heart Healthy Addtl Attending Provider Instructions: Bedrest for now, to be reassessed on arrival to the accepting facility. Pending Studies at Discharge: No Stand-Alone Forms: My [facility] Skilled Items Patient informed of condition?: Yes DNR: No Discharge Level of Care: Other Communicable Disease: No Discharge Prognosis: Stable Lines: Peripheral IV Urinary Catheter: No Medications and DC Order Prescriptions: Continued metoprolol succinate 25 mg Tablet Extended Release 24 Hr 25 mg PO BID RF: 0 atorvastatin 80 mg Tablet 80 mg PO QPM RF: 0 gabapentin 400 mg Capsule 400 mg PO BID RF: 0 torsemide 10 mg Tablet 40 mg PO 1500 RF: 0 ferrous sulfate [iron] 325 mg (65 mg iron) Tablet 325 mg PO DAILY RF: 0 celecoxib [Celebrex] 100 mg Capsule 100 mg PO BID RF: 0 glucosamine-chondroitin 500-400 mg Tablet 1 tab PO DAILY RF: 0 calcium carbonate-vitamin D3 [Calcium 500 + D] 500 mg(1,250mg) -200 unit Tablet 1 tab PO QAM RF: 0 Pradaxa 150 mg Capsule 150 mg PO BID RF: 0 omeprazole 20 mg Tablet,Disintegrat, Delay Rel 20 mg PO BID RF: 0 oxycodone 5 mg Tablet 5 mg PO TID RF: 0 Vyndaqel 20 mg Capsule 80 mg PO 1500 RF: 0 Admission Data Admit Date/Time: 05/08/19 09:14 Attending Provider: Gustabo Llamas Admit Provider: Gustabo Llamas Primary Care Provider: Hema Poe
== END 2019-05-08 12:28 | disposition short-term general hospital (02) | DRG 308 ==
LOC: CC 06:48 → 2S 09:14

== ENCOUNTER 2019-09-17 07:53 | Observation (INO) ==
--- NOTE | 2019-09-17 08:20 | Emergency Department Note ---
Entered by Honey Gallego acting as a scribe for Hema Jensen MD History of Present Illness General Chief complaint: Groin Pain Stated complaint: HERNIA Time Seen by Provider: 09/17/19 08:03 Source: patient History of Present Illness Onset (ago): day(s) 3 Location: left (groin pain) Severity: similar to prior episodes Pain Consistency: + other (worsening) Maximum Pain Intensity: 6 Quality: + other (groin pain) Exacerbated By: + movement Associated symptoms: + other (groin pain, hematuria, back pain, numb feet); no chest pain, no fever/chills and no shortness of breath The patient is a 78 year old male presenting to the Emergency Department complaining of worsening groin pain starting 3 days ago. The patient reports that he has left-sided groin pain. He states that he has an inguinal hernia and that it was been painful. He explains that exercising and being active worsens his groin gain. He notes that he has been experiencing hematuria for the past 2 days but that sometimes he notices blood coming out of his urethra when he isnt urinating. He adds that he has severe back pain but that this isnt a new problem. The patient reports that both of his feet have been numb for the past 2 days. He states that he experienced these symptoms before a few years ago. He explains that he had a defibrillator placed about 3 months ago and that it has not fired. He notes that he regularly takes Eliquis. The patient denies dysuria, chest pain, shortness of breath, fevers, chills, recent falls or trauma and penile discharge. Home Medications Home Medications Medication Instructions Recorded Confirmed Type ferrous sulfate [iron] 325 mg PO QAM 09/17/18 09/17/19 History gabapentin 400 mg PO BID 09/17/18 09/17/19 History glucosamine-chondroitin 1 tab PO QAM 09/17/18 09/17/19 History omeprazole 20 mg PO BID 09/17/18 09/17/19 History metoprolol succinate 25 mg PO BID 05/05/19 09/17/19 History methocarbamol 500 mg tablet 500 mg PO BID #90 tab 05/17/19 09/17/19 History Eliquis 5 mg PO BID 06/09/19 09/17/19 History ascorbic acid (vitamin C) [Vitamin 1 g PO QAM 06/29/19 09/17/19 History C] cephalexin [Keflex] 250 mg PO BID 10 Days #20 cap 09/17/19 Rx metolazone 2.5 mg PO UD 09/17/19 09/17/19 History oxycodone 5 mg PO Q6H PRN 09/17/19 09/17/19 History patisiran (lipid complex) 25 mg IV UD 09/17/19 09/17/19 History [Onpattro] potassium chloride 20 meq PO BIDM 09/17/19 09/17/19 History tafamidis 61 mg PO QAM 09/17/19 09/17/19 History torsemide 40 mg PO QAM 09/17/19 09/17/19 History torsemide 60 mg PO HS 09/17/19 09/17/19 History Allergies Allergy/AdvReac Type Severity Reaction Status Date / Time No Known Allergies Allergy Mild Verified 09/17/19 08:48 Past Med/Surg History Medical History (Updated 09/18/19 @ 14:50 by Hema Jensen MD) Atrial fibrillation new onset (2018) BPH (benign prostatic hyperplasia) Cardiac amyloidosis Chronic back pain Chronic combined systolic and diastolic CHF (congestive heart failure) CKD (chronic kidney disease), stage III Congestive heart failure Degenerative disc disease Diabetes mellitus, type II Diverticular disease GERD (gastroesophageal reflux disease) History of cardioversion 05/08/19 DONE AT [facility] Hx of atrial flutter 2016 [facility] per medical record Hyperlipidemia Hypertension ICD (implantable cardioverter-defibrillator) in place IMPLANTED 05/30 [employer] (DR. BRYANT) On anticoagulant therapy Osteoarthritis Scoliosis Spinal stenosis Surgical History History of appendectomy History of arthroscopy RT SHOULDER History of back surgery LUMBAR SPINE History of cardiac cath SUMMER 2017 - [facility] - REASON? - NO STENTS/ANGIOPLASTY - DR. BRYANT History of carpal tunnel release BL History of cataract surgery RT/LEFT History of colonoscopy History of esophagogastroduodenoscopy (EGD) History of tooth extraction S/P epidural steroid injection Lumbar Family History Mother FHx: breast cancer Grandmother (Paternal) FHx: stroke Grandmother (Paternal) FHx: myocardial infarction Social History Preferred Language: Azerbaijani Communication Ability: Effective Reimbursement Spec Required: No Beliefs That Will Affect Care: None Current Living Situation: Alone current occupation: Retired Other Information That Helps Us Care for You: No Feels Safe at Home: Yes Safety Concerns: Feels Safe At This Time Smoking Status: Former smoker Tobacco Type: cigarettes ; Do You Dip or Chew Tobacco: No ; Second Hand Exposure: No ; Tobacco Cessation Education Requested by Patient: No Hx Alcohol Use: No Hx Substance Use: No Review of Systems See HPI for pertinent positives & negatives. and A total of 10 systems reviewed and were otherwise negative Physical Exam Vital Signs Vital Signs - 24 hr 09/17/19 07:57 09/17/19 08:32 09/17/19 08:37 Temperature 98.8 F Temperature Source Oral Pulse Rate 71 74 Pulse Rate from SpO2 Sensor 72 Respiratory Rate 18 17 Blood Pressure 91/61 L 96/56 L Blood Pressure Mean 71 67 Pulse Oximetry 100 94 94 Oxygen Delivery Method Room Air Room Air Sepsis Recent Fever Within 48 Hours No Sepsis New/Unexplained Change in Mental Status No Sepsis Action Taken by Nursing No Action Required 09/17/19 09:30 09/17/19 11:00 09/17/19 11:30 Temperature Temperature Source Pulse Rate 79 Pulse Rate from SpO2 Sensor Respiratory Rate 16 Blood Pressure 103/68 104/68 94/61 L Blood Pressure Mean 77 72 67 Pulse Oximetry Oxygen Delivery Method Sepsis Recent Fever Within 48 Hours Sepsis New/Unexplained Change in Mental Status Sepsis Action Taken by Nursing 09/17/19 11:34 09/17/19 12:00 09/17/19 12:05 Temperature Temperature Source Pulse Rate Pulse Rate from SpO2 Sensor Respiratory Rate Blood Pressure 94/61 L 97/62 L 101/63 Blood Pressure Mean 67 66 70 Pulse Oximetry Oxygen Delivery Method Sepsis Recent Fever Within 48 Hours Sepsis New/Unexplained Change in Mental Status Sepsis Action Taken by Nursing General: Non-ill appearing older male in no acute distress. HEENT: Normal cephalic atraumatic. Pupils are equal round and reactive to light. Extraocular movements are intact. Oropharynx is pink with moist mucous membranes. No swelling of the mouth lips or tongue. Neck: Supple with a midline trachea. No meningeal signs or stiffness, no JVD or bruits. No Stridor. Chest: Defibrillator in left chest which is non-tender. Clear to auscultation bilaterally. No wheezes or rhonchi. No increased work of breathing. Heart: regular rate and rhythm. Abdomen: Abdomen is mildly distended but minimally tender. Mild tenderness to left groin. Hernia can be felt with coughing but seems to reduce. No redness or warmth. Soft, without rebound guarding or rigidity. : Normal male genitalia. No bleeding. No discharge. No testicular pain or swelling. Extremities: No cyanosis clubbing or edema. No calf tenderness or asymmetry Spine/Back. Non tender to palpation. No CVA tenderness Skin: Good turgor without rashes. Neurologic exam: Cranial nerves two through 12 are intact. Motor and sensation are intact and symmetrical throughout. Course Course 0805: The patient was evaluated in room B7, and a complete history and physical examination were performed. 0845: EMR reviewed. The patients systolic blood pressure runs in the 90s at baseline. 0907: I checked on the patient at this time who reports that he is resting comfortable. He just returned from CT. 0950: I reevaluated the patient at this time who is resting comfortably. 1034: I updated the patient at this time. 1105: I reevaluated the patient at this time who reports that he still has groin pain. I reexamined him. 1256: I discussed the patients case with Radha Jacinto PA-C. Dr. Leroy Magana hospitalist will evaluate the patient for further management. Administered Medications Acetaminophen (Tylenol) 650 mg PO Q4H PRN PRN Reason: Pain or Fever Stop: 10/17/19 16:42 Last Admin: 09/17/19 17:20 Dose: 650 mg Documented by: [id number] Apixaban (Eliquis) 5 mg PO BID [facility] Stop: 10/17/19 20:59 Last Admin: 09/18/19 08:41 Dose: 5 mg Documented by: [id number] Admin: 09/17/19 20:44 Dose: 5 mg Documented by: [id number] Ferrous Sulfate (Feosol) 325 mg PO QAM [facility] Stop: 10/18/19 08:59 Last Admin: 09/18/19 08:40 Dose: 325 mg Documented by: [id number] Gabapentin (Neurontin) 400 mg PO BID [facility] Stop: 10/17/19 20:59 Last Admin: 09/18/19 08:42 Dose: 400 mg Documented by: [id number] Admin: 09/17/19 20:43 Dose: 400 mg Documented by: [id number] Ceftriaxone Sodium 1,000 mg/ (Dextrose) 60 mls @ 100 mls/hr IV DAILY [facility]; Protocol Stop: 09/23/19 08:59 Last Infusion: 09/18/19 09:26 Dose: 0 mls/hr Documented by: [id number] Admin: 09/18/19 08:50 Dose: 100 mls/hr Documented by: [id number] Insulin Aspart (Novolog Flexpen) 0 units SC ACHS [facility] Stop: 10/17/19 16:42 Last Admin: 09/18/19 12:18 Dose: 3 units Documented by: [id number] Cosigned by: [id number] Admin: 09/18/19 08:45 Dose: 6 units Documented by: [id number] Cosigned by: [id number] Admin: 09/17/19 22:33 Dose: 1 units Documented by: [id number] Cosigned by: [id number] Admin: 09/17/19 17:30 Dose: Not Given Documented by: [id number] Methocarbamol (Robaxin) 500 mg PO BID [facility] Stop: 10/17/19 20:59 Last Admin: 09/18/19 08:41 Dose: 500 mg Documented by: [id number] Admin: 09/17/19 20:44 Dose: 500 mg Documented by: [id number] Metoprolol Succinate (Toprol Xl) 25 mg PO BID [facility] Stop: 10/17/19 20:59 Last Admin: 09/18/19 08:41 Dose: 25 mg Documented by: [id number] Admin: 09/17/19 20:45 Dose: 25 mg Documented by: [id number] Miscellaneous (Order Awaiting Action) 1 ea N/A QS [facility] Stop: 10/17/19 16:59 Last Admin: 09/18/19 08:42 Dose: Not Given Documented by: [id number] Admin: 09/17/19 23:51 Dose: Not Given Documented by: [id number] Admin: 09/17/19 17:25 Dose: Not Given Documented by: [id number] Oxycodone HCl (Roxicodone Immediate Rel) 5 mg PO Q6H PRN PRN Reason: Pain Stop: 10/01/19 16:57 Last Admin: 09/18/19 10:56 Dose: 5 mg Documented by: [id number] Pantoprazole Sodium (Protonix) 40 mg PO BID [facility] Stop: 10/17/19 20:59 Last Admin: 09/18/19 08:41 Dose: 40 mg Documented by: [id number] Admin: 09/17/19 20:44 Dose: 40 mg Documented by: [id number] Potassium Chloride (Klor-Con M20) 20 meq PO BIDM ASHLEE Stop: 10/18/19 08:59 Last Admin: 09/18/19 08:42 Dose: 20 meq Documented by: [id number] Torsemide (Demadex) 60 mg PO HS [facility] Stop: 10/17/19 20:59 Last Admin: 09/17/19 20:41 Dose: 60 mg Documented by: [id number] Torsemide (Demadex) 40 mg PO QAM [facility] Stop: 10/18/19 08:59 Last Admin: 09/18/19 08:42 Dose: 40 mg Documented by: [id number] Discontinued Medications Ceftriaxone Sodium (Rocephin) 1,000 mg in 50 mls @ 100 mls/hr IV NOW STA Stop: 09/17/19 11:13 Last Infusion: 09/17/19 11:43 Dose: 0 mls/hr Documented by: [id number] Admin: 09/17/19 11:01 Dose: 100 mls/hr Documented by: [id number] Metoprolol Succinate (Toprol Xl) 25 mg PO ONE ONE Stop: 09/17/19 15:57 Last Admin: 09/17/19 17:25 Dose: 25 mg Documented by: [id number] Morphine Sulfate (Morphine Sulfate) 2 mg IV NOW STA Stop: 09/17/19 11:10 Last Admin: 09/17/19 11:46 Dose: 2 mg Documented by: [id number] Morphine Sulfate (Morphine Sulfate) 2 mg IV NOW STA Stop: 09/17/19 12:48 Last Admin: 09/17/19 13:38 Dose: 2 mg Documented by: [id number] Potassium Chloride (Klor-Con M20) 40 meq PO NOW STA Stop: 09/17/19 14:15 Last Admin: 09/17/19 14:59 Dose: 40 meq Documented by: [id number] Potassium Chloride (Klor-Con M20) 40 meq PO ONE ONE Stop: 09/17/19 20:01 Last Admin: 09/17/19 20:40 Dose: 40 meq Documented by: [id number] Potassium Chloride (Klor-Con M20) 40 meq PO NOW STA Stop: 09/18/19 10:41 Last Admin: 09/18/19 10:57 Dose: 40 meq Documented by: [id number] Medical Decision Making Differential Diagnosis Differential diagnoses include anemia, hematuria, kidney stone, hernia, intra- abdominal process, infection and electrolyte or metabolic abnormalities amongst others. Medical Records Attestation: I reviewed the patient's medical records. Home Medications Current Medication List: was personally reviewed by me Laboratory Data Attestation: I reviewed the patient's lab results. Result diagrams: 09/18/19 06:31 09/18/19 06:31 Lab Results 09/17/19 09/17/19 09/17/19 Range/Units 08:19 08:19 08:19 WBC 13.33 H (4.8-10.8) K/uL RBC 4.79 (4.7-6.1) M/uL Hgb 13.9 L (14.0-18.0) g/dL Hct 40.0 L (42-52) % MCV 83.5 (80-100) fL MCH 29.0 (25-34) pg MCHC 34.8 (32-36) g/dL RDW Std Deviation 51.0 H (36.4-46.3) fL RDW Coeff of Daria 16.6 H (11.5-14.5) % Plt Count 186 (130-400) K/uL MPV 9.0 (7.4-10.4) fL Immature Gran % (Auto) 0.2 % Neut % (Auto) 79.4 % Lymph % (Auto) 10.4 % Green % (Auto) 9.8 % Eos % (Auto) 0.0 % Baso % (Auto) 0.2 % Immature Gran # (Auto) 0.03 H (0.00-0.02) K/uL Neut # (Auto) 10.59 H (1.4-6.5) K/uL Lymph # (Auto) 1.38 (1.2-3.4) K/uL Green # (Auto) 1.30 H (0.11-0.59) K/uL Eos # (Auto) 0.00 (0-0.5) K/uL Baso # (Auto) 0.03 (0-0.2) K/uL PT 15.0 H (9.0-12.0) Seconds INR 1.5 H (0.9-1.1) APTT 33.6 H (21.0-31.0) Seconds PTT Ratio 1.2 Sodium 134 L (136-145) mmol/L Potassium 3.0 L (3.5-5.1) mmol/L Chloride 87 L (98-107) mmol/L Carbon Dioxide 40 H (21-32) mmol/L Anion Gap 6.0 (3-11) BUN 31 H (7-18) mg/dl Creatinine 1.76 H (0.6-1.4) mg/dl Est Cr Clr Drug Dosing 34.6 ml/min Est GFR ( Amer) 42.0 Est GFR (Non-Af Amer) 36.2 BUN/Creatinine Ratio 17.8 (10-20) Glucose 194 H (70-99) mg/dl Calcium 9.3 (8.5-10.1) mg/dl Magnesium (1.8-2.4) mg/dl Total Bilirubin 1.6 H (0.2-1) mg/dl AST 19 (15-37) U/L ALT 20 (12-78) U/L Alkaline Phosphatase 88 (45-117) U/L Total Protein 7.3 (6.4-8.2) gm/dl Albumin 3.4 (3.4-5.0) gm/dl Globulin 3.9 (2.5-4.0) gm/dl Albumin/Globulin Ratio 0.9 (0.9-2) Lipase 35 L (73-393) U/L Urine Color Urine Appearance (Clear) Urine pH (4.5-7.5) Ur Specific [place] (1.000-1.030) Urine Protein (Negative) Urine Glucose (UA) (Negative) Urine Ketones (Negative) Urine Blood (Negative) Urine Nitrite (Negative) Urine Bilirubin (Negative) Urine Urobilinogen (Negative) Ur Leukocyte Esterase (Negative) Urine WBC (Auto) (0-5) /hpf Urine RBC (Auto) (0-4) /hpf U Hyaline Cast (Auto) (0-5) /lpf U Epithel Cells (Auto) (0-5) /lpf Urine Bacteria (Auto) (Negative) Blood Type Antibody Screen 09/17/19 09/17/19 09/17/19 Range/Units 08:19 08:24 09:56 WBC (4.8-10.8) K/uL RBC (4.7-6.1) M/uL Hgb (14.0-18.0) g/dL Hct (42-52) % MCV (80-100) fL MCH (25-34) pg MCHC (32-36) g/dL RDW Std Deviation (36.4-46.3) fL RDW Coeff of Daria (11.5-14.5) % Plt Count (130-400) K/uL MPV (7.4-10.4) fL Immature Gran % (Auto) % Neut % (Auto) % Lymph % (Auto) % Green % (Auto) % Eos % (Auto) % Baso % (Auto) % Immature Gran # (Auto) (0.00-0.02) K/uL Neut # (Auto) (1.4-6.5) K/uL Lymph # (Auto) (1.2-3.4) K/uL Green # (Auto) (0.11-0.59) K/uL Eos # (Auto) (0-0.5) K/uL Baso # (Auto) (0-0.2) K/uL PT (9.0-12.0) Seconds INR (0.9-1.1) APTT (21.0-31.0) Seconds PTT Ratio Sodium (136-145) mmol/L Potassium (3.5-5.1) mmol/L Chloride (98-107) mmol/L Carbon Dioxide (21-32) mmol/L Anion Gap (3-11) BUN (7-18) mg/dl Creatinine (0.6-1.4) mg/dl Est Cr Clr Drug Dosing ml/min Est GFR ( Amer) Est GFR (Non-Af Amer) BUN/Creatinine Ratio (10-20) Glucose (70-99) mg/dl Calcium (8.5-10.1) mg/dl Magnesium 2.2 (1.8-2.4) mg/dl Total Bilirubin (0.2-1) mg/dl AST (15-37) U/L ALT (12-78) U/L Alkaline Phosphatase (45-117) U/L Total Protein (6.4-8.2) gm/dl Albumin (3.4-5.0) gm/dl Globulin (2.5-4.0) gm/dl Albumin/Globulin Ratio (0.9-2) Lipase (73-393) U/L Urine Color Yellow Urine Appearance Cloudy A (Clear) Urine pH 5.5 (4.5-7.5) Ur Specific [place] 1.012 (1.000-1.030) Urine Protein Negative (Negative) Urine Glucose (UA) Negative (Negative) Urine Ketones Negative (Negative) Urine Blood 3+ H (Negative) Urine Nitrite Positive A (Negative) Urine Bilirubin Negative (Negative) Urine Urobilinogen Negative (Negative) Ur Leukocyte Esterase 2+ H (Negative) Urine WBC (Auto) >30 H (0-5) /hpf Urine RBC (Auto) >30 H (0-4) /hpf U Hyaline Cast (Auto) 5-10 H (0-5) /lpf U Epithel Cells (Auto) 0-5 (0-5) /lpf Urine Bacteria (Auto) 4+ H (Negative) Blood Type A Positive Antibody Screen NEGATIVE Imaging Data Radiologist's Impression: Radiology results as stated below per my review and the radiologist's interpretation: CT OF THE ABDOMEN AND PELVIS WITHOUT CONTRAST CLINICAL HISTORY: left abd/groin pain. hematuria COMPARISON STUDY: CT of the abdomen and pelvis June 09, 2019. TECHNIQUE: Axial images of the abdomen and pelvis were obtained without IV contrast. Images were reviewed in the axial, sagittal, and coronal planes. Automated exposure control was utilized for the study. A dose lowering technique was utilized adhering to the principles of ALARA. FINDINGS: A trace right pleural effusion is noted. Moderate cardiomegaly is noted. Pacer leads are partially imaged. Evaluation of the abdomen and pelvis is suboptimal on this unenhanced examination. The liver, spleen, adrenal glands and pancreas are unremarkable. There is no biliary or pancreatic ductal dilatation. There is no peripancreatic or perihepatic cholecystic infiltration. Left renal parapelvic and cortical cysts are unchanged. There is no hydronephrosis or hydroureter. Prostate is moderately enlarged. There is no evidence for a bowel obstruction. Scattered colonic diverticula are noted without evidence for acute diverticulitis. No lymphadenopathy. No suspicious oss eous lesions are noted. Anterolisthesis of L3 on L4 with marked disc space narrowing and facet arthrosis is unchanged since CT of June 09, 2019. No suspicious osseous lesions. IMPRESSION: 1. No acute process within the abdomen or pelvis on unenhanced exam. No significant change since prior CT. 2. No hydronephrosis or ureteral calculi. Moderate enlargement of the prostate. 3. No bowel obstruction. ACT 112: Negative or not required by law. Electronically signed by: David Baldwin M.D. 09/17/2019 9:30 AM XR chest 1V portable CLINICAL HISTORY: Abdominal pain. COMPARISON STUDY: Chest radiograph July 07, 2016. FINDINGS: Dual lead left subclavian pacer/AICD is in place. There are postoperative findings within the right humeral head. No pneumothorax is noted. There is a trace right pleural effusion. There is no evidence for pulmonary edema. Moderate cardiomegaly is noted. Thoracic spine scoliosis is incidentally noted. IMPRESSION: 1. Trace right pleural effusion. 2. Cardiomegaly without evidence for pulmonary edema. ACT 112: Negative or not required by law. Electronically signed by: David Baldwin M.D. 09/17/2019 10:11 AM ECG Data Attestation: I personally reviewed and interpreted this ECG as follows: Indication: + abdominal pain Rate (beats per minute): 79 Rhythm: + other (Atrial paced rhythm) ECG Intervals/blocks: + Left bundle branch block ECG ST segments: no ST depression and no ST elevation Comparison ECG Date: from (07/07/19) Change: no significant change Blood Pressure Blood Pressure Findings: Low blood pressure Blood Pressure Disposition: further management by hospitalist [facility] Narrative This patient comes in as described above. He has had some hematuria. He does have a complex cardiac history and is on Eliquis. He also tells me is been having groin pain from a hernia that has been going on for years but has gotten worse lately. On exam, there is no evidence of an incarcerated hernia and I do feel when he coughs but it seems to go back in. There is no bleeding from his penis at present his pressure is low however he has a significant cardiac history and tells me he always runs low. He has no fever and he is well-appearing. he is not tachycardic I do not suspect sepsis at this point. IV access established I did type and screen him I also order urinalysis and CAT scan as well as an EKG and chest x-ray. He was reassessed frequently. CAT scan of the abdomen was unremarkable there is no hernia or mass seen. His white count is mildly elevated and his urine does suggest a UTI. He was given IV Rocephin. He does have some baseline renal insufficiency which actually looks better than before. He was given IV morphine for pain. Talking about his herni,a it seems like this is been going on for years he says it only occurs when he stands up but is been occurring more and is painful. When he attempted to be discharged he said he had severe pain when getting up. He was given additional pain medication, I reassess him there is no bulge seen. He will be admitted for pain management and further evaluation. 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 I confirm that the note above accurately reflects all work, treatment, procedures, and medical decision making performed by me.
[2019-09-17 08:30] LABS: Basophils # (auto) 0.03 K/uL (0-0.2); Basophils % (auto) 0.2 %; Hemoglobin 13.9 g/dL (14.0-18.0); Immature Granulocytes # (auto) 0.03 K/uL (0.00-0.02); Immature Granulocytes % (auto) 0.2 %; Lymphocytes # (auto) 1.38 K/uL (1.2-3.4); Lymphocytes % (auto) 10.4 %; Mean Corpuscular Hgb Conc 34.8 g/dL (32-36); Mean Corpuscular Volume 83.5 fL (80-100); Monocytes % (auto) 9.8 %; Neutrophils # (auto) 10.59 K/uL (1.4-6.5); Neutrophils % (auto) 79.4 %; Platelet Count 186 K/uL (130-400); RDW Coefficient of Variation 16.6 % (11.5-14.5); Red Blood Count 4.79 M/uL (4.7-6.1); White Blood Count 13.33 K/uL (4.8-10.8)
[2019-09-17 08:40] LABS: INR 1.5 (0.9-1.1); Partial Thromboplastin Ratio 1.2; Partial Thromboplastin Time 33.6 Seconds (21.0-31.0)
[2019-09-17 08:52] LABS: Albumin Globulin Ratio 0.9 (0.9-2); Albumin Level 3.4 gm/dl (3.4-5.0); BUN Creatinine Ratio 17.8 (10-20); Bilirubin,Total 1.6 mg/dl (0.2-1); Calcium 9.3 mg/dl (8.5-10.1); Creatinine Clr Calc Pharmacy 34.6 ml/min; Est GFR (Non-African American) 36.2; Globulin 3.9 gm/dl (2.5-4.0); Total Protein 7.3 gm/dl (6.4-8.2)
--- NOTE | 2019-09-17 09:31 | CT Scan Report ---
CT OF THE ABDOMEN AND PELVIS WITHOUT CONTRAST CLINICAL HISTORY: left abd/groin pain. hematuria COMPARISON STUDY: CT of the abdomen and pelvis June 09, 2019. TECHNIQUE: Axial images of the abdomen and pelvis were obtained without IV contrast. Images were revi ewed in the axial, sagittal, and coronal planes. Automated exposure control was utilized for the mariah dy. A dose lowering technique was utilized adhering to the principles of ALARA. FINDINGS: A trace right pleural effusion is noted. Moderate cardiomegaly is noted. Pacer leads are pa rtially imaged. Evaluation of the abdomen and pelvis is suboptimal on this unenhanced examination. Th e liver, spleen, adrenal glands and pancreas are unremarkable. There is no biliary or pancreatic duct al dilatation. There is no peripancreatic or perihepatic cholecystic infiltration. Left renal parapel rosalva and cortical cysts are unchanged. There is no hydronephrosis or hydroureter. Prostate is moderate ly enlarged. There is no evidence for a bowel obstruction. Scattered colonic diverticula are noted wi thout evidence for acute diverticulitis. No lymphadenopathy. No suspicious osseous lesions are noted. Anterolisthesis of L3 on L4 with marked disc space narrowing and facet arthrosis is unchanged since CT of June 09, 2019. No suspicious osseous lesions. IMPRESSION: 1. No acute process within the abdomen or pelvis on unenhanced exam. No significant change since prio r CT. 2. No hydronephrosis or ureteral calculi. Moderate enlargement of the prostate. 3. No bowel obstruction. ACT 112: Negative or not required by law. Electronically signed by: David Baldwin M.D. 09/17/2019 9:30 AM
[2019-09-17 10:11] LABS: Appearance Urine Cloudy (Clear); Bacteria Urine Automated 4+ (Negative); Bilirubin Urine Negative (Negative); Blood Urine 3+ (Negative); Color Urine Yellow; Epithelial Cell Urine Auto 0-5 /lpf (0-5); Glucose Urine UA Negative (Negative); Ketones Urine Negative (Negative); Leukocyte Esterase Urine 2+ (Negative); Nitrite Urine Positive (Negative); Protein Urine Negative (Negative); RBC Urine Automated >30 /hpf (0-4); Specific Gravity Urine 1.012 (1.000-1.030); Urobilinogen Urine Negative (Negative); WBC Urine Automated >30 /hpf (0-5); pH Urine 5.5 (4.5-7.5)
--- NOTE | 2019-09-17 10:12 | XRay Report ---
XR chest 1V portable CLINICAL HISTORY: Abdominal pain. COMPARISON STUDY: Chest radiograph July 07, 2016. FINDINGS: Dual lead left subclavian pacer/AICD is in place. There are postoperative findings within t he right humeral head. No pneumothorax is noted. There is a trace right pleural effusion. There is no evidence for pulmonary edema. Moderate cardiomegaly is noted. Thoracic spine scoliosis is incidental ly noted. IMPRESSION: 1. Trace right pleural effusion. 2. Cardiomegaly without evidence for pulmonary edema. ACT 112: Negative or not required by law. Electronically signed by: David Baldwin M.D. 09/17/2019 10:11 AM
[2019-09-17] MEDS ORDERED: cefTRIAXone SODIUM 1,000 MG/50 ML BAG IV STA (10:44)
[2019-09-17] MEDS ORDERED: MoRPHine SULFATE 2 MG/ML CARP IV STA ×2 (11:09→12:47)
--- NOTE | 2019-09-17 13:08 | History & Physical Report ---
Date of Service September 17, 2019 Assessment & Plan (1) Left groin pain: Pt is 78 y/o M with PMH DM II, HTN, dyslipidemia, cardiac amyloidosis, chronic systolic and diastolic heart failure, nonischemic cardiomyopathy, persistent A-fib on Eliquis s/p cardioversion 06/2019, aortic valve stenosis, h/o pacemaker, CKD III, chronic low back pain presented to ER with c/o left groin pain. Pt reports hx previously diagnosed left inguinal hernia and having intermittent intermittent left groin pain for couple of years with activity/coughing. Has been able to self reduce. Recently increased left groin pain with movement/coughing. In ER afebrile, P: 71, R: 18, BP: 91/6 up to 101/63, 100% on RA. WBC: 13, H/H: 13.9/40 (baseline Hgb: 14.5) CT ABD/PELVIS: No acute process within the abdomen or pelvis on unenhanced exam. No hydronephrosis or ureteral calculi. Moderate enlargement of the prostat e. No bowel obstruction. -In ER given morphine 2mg IV -No acute incarcerated hernia noted at this time -Continue chronic oxycodone -CBC, BMP in am -Consider general surgery consult outpatient (2) Acute UTI: (3) Hematuria: reports hematuria x 2 days. Denies dysuria, flank pain. Reports gradual urinary incontinence over past several months. Has appointment to get established with Dr Marti in 10/2019. UA: 3+blood, +nitrite, 2+leuk esterase, 4+bacteria -In ER given Rocephin -Urine culture pending -Rocephin -CBC in am -Continue Eliquis and monitor for further hematuria -If worsening hematuria consider urology consult (4) Hypokalemia: Pt on chronic diuretics, has not been taking his oral potassium suppl ements as directed K: 3.0 -Replace and monitor -Resume oral potassium supplement -Magnesium lab pending (5) Chronic combined systolic and diastolic CHF (congestive heart failure): (6) Nonischemic cardiomyopathy: H/O Pacemaker Current euvolemic -Continue torsemide (7) History of peristent atrial fibrillation: On Eliquis. S/P successful cardioversion in 06/2019. Not on amiodarone secondary to elevated LFTs in past -Continue metoprolol -Continue Eliquis (8) Cardiac amyloidosis: -Continue tafamidis (9) Diabetes mellitus, type II: Current diet controlled A1c: 7.3 in 06/2019 -Monitor BSGs -Novolog sliding scale per protocol (10) CKD (chronic kidney disease), stage III: BUN: 31, Cr: 1.76, GFR: 36. Baseline Cr~1.5-1.7 -Monitor renal functions -Avoid nephrotoxic agents when possible (11) Chronic back pain: -Continue oxycodone, methocarbamol, gabapentin DVT Prophylaxis -On Eliquis _ Full Code as per discussion with pt, however reports would not want on prolonged life support if poor prognosis. Follows with [facility] for routine care. Reports planning on establishing with Dr Jimenez - [facility] [place] Pt was seen and care coordinated with Dr Harper. See addendum History of Present Illness Chief Complaint: Left maria luisa pain Primary Care Provider: [facility] Pt is 78 y/o M with PMH DM II, HTN, dyslipidemia, cardiac amyloidosis, chronic systolic and diastolic heart failure, nonischemic cardiomyopathy, persistent A- fib s/p cardioversion 06/2019, aortic valve stenosis, h/o pacemaker, CKD III, chronic low back pain presented to ER with c/o left groin pain. Pt reports hx intermittent left groin pain and previously diagnosed left inguinal hernia for couple of years. Reports bulging with exercise or standing and has been able to "push" hernia back in. States recently increased discomfort with left groin with sitting up/coughing. Also reports hematuria x 2 days. Reports gradual worsening urinary incontinence for several months. Denies dysuria. Reports has upcoming appointment with urology in October 2019. Denies fever/chills, diaphoresis, N/V/D/C, REYNOSO, dizziness, syncope, vision changes, neck pain, CP, SOB, orthopnea, palpitations, cough, sore throat, choking, otalgia, rhinorrhea, abdominal pain, paresthesias, weakness, extremity weakness, extremity edema, rashes. Allergies Allergy/AdvReac Type Severity Reaction Status Date / Time No Known Allergies Allergy Mild Verified 09/17/19 08:48 Home Medications Home Medications Medication Instructions Recorded Confirmed Type ferrous sulfate [iron] 325 mg PO QAM 09/17/18 09/17/19 History gabapentin 400 mg PO BID 09/17/18 09/17/19 History glucosamine-chondroitin 1 tab PO QAM 09/17/18 09/17/19 History omeprazole 20 mg PO BID 09/17/18 09/17/19 History metoprolol succinate 25 mg PO BID 05/05/19 09/17/19 History methocarbamol 500 mg tablet 500 mg PO BID #90 tab 05/17/19 09/17/19 History Eliquis 5 mg PO BID 06/09/19 09/17/19 History ascorbic acid (vitamin C) [Vitamin 1 g PO QAM 06/29/19 09/17/19 History C] cephalexin [Keflex] 250 mg PO BID 10 Days #20 cap 09/17/19 Rx metolazone 2.5 mg PO UD 09/17/19 09/17/19 History oxycodone 5 mg PO Q6H PRN 09/17/19 09/17/19 History patisiran (lipid complex) 25 mg IV UD 09/17/19 09/17/19 History [Onpattro] potassium chloride 20 meq PO BIDM 09/17/19 09/17/19 History tafamidis 61 mg PO QAM 09/17/19 09/17/19 History torsemide 40 mg PO QAM 09/17/19 09/17/19 History torsemide 60 mg PO HS 09/17/19 09/17/19 History Past Med/Surg History Medical History (Updated 09/17/19 @ 14:51 by Maryan Jacinto PA-C) Atrial fibrillation new onset (2018) BPH (benign prostatic hyperplasia) Cardiac amyloidosis Chronic back pain Chronic combined systolic and diastolic CHF (congestive heart failure) CKD (chronic kidney disease), stage III Congestive heart failure Degenerative disc disease Diabetes mellitus, type II Diverticular disease GERD (gastroesophageal reflux disease) History of cardioversion 05/08/19 DONE AT [facility] Hx of atrial flutter 2015 [facility] per medical record Hyperlipidemia Hypertension ICD (implantable cardioverter-defibrillator) in place IMPLANTED 05/30 [employer] (DR. BRYANT) On anticoagulant therapy Osteoarthritis Scoliosis Spinal stenosis Surgical History History of appendectomy History of arthroscopy RT SHOULDER History of back surgery LUMBAR SPINE History of cardiac cath SUMMER 2017 - [facility] - REASON? - NO STENTS/ANGIOPLASTY - DR. BRYANT History of carpal tunnel release BL History of cataract surgery RT/LEFT History of colonoscopy History of esophagogastroduodenoscopy (EGD) History of tooth extraction S/P epidural steroid injection Lumbar Family History Mother FHx: breast cancer Grandmother (Paternal) FHx: stroke Grandmother (Paternal) FHx: myocardial infarction Social History Preferred Language: Chinese Communication Ability: Effective Master Brewer Required: No Beliefs That Will Affect Care: None Current Living Situation: Alone current occupation: Retired Feels Safe at Home: Yes Smoking Status: Never smoker Tobacco Type: cigarettes ; Second Hand Exposure: No ; Hx Alcohol Use: Yes Alcohol type: beer Hx Substance Use: No Review of Systems Review of Systems: All systems reviewed & are unremarkable except as noted in HPI & below Physical Exam Physical Exam: General: no distress, WDWN Head: normocephalic, atraumatic Eyes: PERRL, EOM's intact, conjunctiva non-injected, anicteric ENT: normal inspection external ears, nose, mucous membranes moist Neck: supple, trachea midline Lungs: clear, no respiratory distress, no wheezing/rhonchi/rales CV: RRR, no murmur, no JVD, no pretibial edema Abd: normal BS, soft, +tenderness to palpation LLQ without rebound or guarding. No scrotal edema, no penile discharge Ext: no cyanosis, no calf tenderness Neuro: A&O x 3, no focal deficits noted, normal affect Skin: warm, dry Results & Data Vital Signs (Past 12 Hours) Vital Signs Temp Pulse Resp BP Pulse Ox 09/17/19 12:05 101/63 09/17/19 12:00 97/62 L 09/17/19 11:34 94/61 L 09/17/19 11:30 94/61 L 09/17/19 11:00 104/68 09/17/19 09:30 79 16 103/68 09/17/19 08:37 74 17 96/56 L 94 09/17/19 08:32 94 09/17/19 07:57 37.1 C 71 18 91/61 L 100 Laboratory Results Short CBC 09/17/19 09/17/19 Range/Units 08:19 08:19 WBC 13.33 H (4.8-10.8) K/uL Hgb 13.9 L (14.0-18.0) g/dL Hct 40.0 L (42-52) % Plt Count 186 (130-400) K/uL Creatinine 1.76 H (0.6-1.4) mg/dl BMP 09/17/19 08:19 Sodium 134 L Potassium 3.0 L Chloride 87 L Carbon Dioxide 40 H BUN 31 H Creatinine 1.76 H Glucose 194 H Calcium 9.3 Liver Function 09/17/19 Range/Units 08:19 Total Bilirubin 1.6 H (0.2-1) mg/dl AST 19 (15-37) U/L ALT 20 (12-78) U/L Alkaline Phosphatase 88 (45-117) U/L Albumin 3.4 (3.4-5.0) gm/dl Urine 09/17/19 Range/Units 09:56 Urine Color Yellow Urine Appearance Cloudy A (Clear) Urine pH 5.5 (4.5-7.5) Ur Specific [place] 1.012 (1.000-1.030) Urine Protein Negative (Negative) Urine Glucose (UA) Negative (Negative) Diagnostic Findings CT ABD/PELVIS WITHOUT CONTRAST: IMPRESSION: 1. No acute process within the abdomen or pelvis on unenhanced exam. No significant change since prior CT. 2. No hydronephrosis or ureteral calculi. Moderate enlargement of the prostate. 3. No bowel obstruction. ECG Rate (beats per minute): 79 Findings: + LBBB and + paced rhythm Supervising Physician Co-Signing Physician Notes Attending addendum The patient was seen and examined in medical floor He has been complaining of left groin pain and noted to have fever on the floor He denies any pain that comes from the back and goes up to the penis CT scan did not reveal any significant change in that area Likely has UTI Denies any significant symptoms On examination Sitting on a chair with some pain at the groin left Hemodynamically stable Chest-clear to auscultate bilateral Heart-S1-S2, regular Abdomen soft benign-,, no tenderness at the hernia site, left CVA is not tender Extremities-negative for any edema Admission labs and imaging studies reviewed CT scan of the abdomen pelvis did not show any significant problem with known hernia and no stones UA suggestive of infection with hematuria Started with intravenous ceftriaxone Agree with assessment and plan as outlined above by ADITI Allan DR (1) Hematuria Hematuria type: unspecified type Qualified Code(s): R31.9 - Hematuria, unspecified
[2019-09-17] MEDS ORDERED: POTASSIUM CHLORIDE 20 MEQ TABCR PO STA (14:14)
--- NOTE | 2019-09-17 14:19 | Electrocardiogram Report ---
Test Reason : Blood Pressure : / mmHG Vent. Rate : 079 BPM Atrial Rate : 079 BPM P-R Int : 308 ms QRS Dur : 148 ms QT Int : 454 ms P-R-T Axes : 056 -65 103 degrees QTc Int : 520 ms Atrial-paced rhythm with prolonged AV conduction Left axis deviation Left bundle branch block Abnormal ECG When compared with ECG of 07-JUL-2019 07:38, No significant change was found Confirmed by Lobito Smith ([id number]) on 09/17/2019 2:19:27 PM Referred By: REFERRED SELF Confirmed By:Lobito Smith
[2019-09-17] MEDS ORDERED: METOPROLOL SUCC 25MG EXT REL TAB PO ONE (15:56)
[2019-09-17] MEDS ORDERED: GLUCOSE 10 TABS/TUBE PO PRN (16:43)
[2019-09-17] MEDS ORDERED: POLYETHYLENE (MIRALAX) 17 GM PACK PO PRN (16:43)
[2019-09-17] MEDS ORDERED: GLUCOSE 40% GEL 15 GM TUBE PO PRN (16:43)
[2019-09-17] MEDS ORDERED: MoRPHine SULFATE 2 MG/ML CARP IV PRN (16:43)
[2019-09-17] MEDS ORDERED: GLUCAGON FOR INJ 1 MG VIAL SQ PRN (16:43)
[2019-09-17] MEDS ORDERED: DEXTROSE 50% 50 ML SYRINGE IV PRN (16:43)
[2019-09-17] MEDS ORDERED: ONDANSETRON INJ 2 MG/ML 2 ML VIAL IV PRN (16:43)
[2019-09-17] MEDS ORDERED: CARBOHYDRATES FOR HYPOGLYCEMIA PO PRN (16:43)
[2019-09-17] MEDS: ACETAMINOPHEN 325 MG TAB PO PRN (17:20)
[2019-09-17] MEDS: INSULIN ASPART 100 UNITS/ML 3 ML PEN SC SCH ×2 (17:30→22:33)
[2019-09-17] MEDS ORDERED: POTASSIUM CHLORIDE 20 MEQ TABCR PO ONE (20:00)
[2019-09-17] MEDS: TORSEMIDE 20 MG TAB PO SCH (20:41)
[2019-09-17] MEDS: GABAPENTIN 400 MG CAP PO SCH (20:43)
[2019-09-17] MEDS: PANTOprazole 40 MG TAB PO SCH (20:44)
[2019-09-17] MEDS: METHOCARBAMOL 500 MG TABLET PO SCH (20:44)
[2019-09-17] MEDS: APIXABAN 5 MG TABLET PO SCH (20:44)
[2019-09-17] MEDS: METOPROLOL SUCC 25MG EXT REL TAB PO SCH (20:45)
[2019-09-18 06:59] LABS: Basophils # (auto) 0.02 K/uL (0-0.2); Basophils % (auto) 0.1 %; Hematocrit (blood only) 40.7 % (42-52); Hemoglobin 13.7 g/dL (14.0-18.0); Immature Granulocytes # (auto) 0.05 K/uL (0.00-0.02); Immature Granulocytes % (auto) 0.3 %; Lymphocytes # (auto) 0.95 K/uL (1.2-3.4); Lymphocytes % (auto) 5.3 %; Mean Corpuscular Hemoglobin 28.5 pg (25-34); Mean Corpuscular Hgb Conc 33.7 g/dL (32-36); Mean Corpuscular Volume 84.8 fL (80-100); Mean Platelet Volume 9.9 fL (7.4-10.4); Monocytes # (auto) 1.69 K/uL (0.11-0.59); Monocytes % (auto) 9.4 %; Neutrophils # (auto) 15.21 K/uL (1.4-6.5); Neutrophils % (auto) 84.9 %; Platelet Count 184 K/uL (130-400); RDW Coefficient of Variation 16.9 % (11.5-14.5); RDW Standard Deviation 52.8 fL (36.4-46.3); White Blood Count 17.92 K/uL (4.8-10.8)
[2019-09-18 07:39] LABS: BUN Creatinine Ratio 23.5 (10-20); Calcium 9.2 mg/dl (8.5-10.1); Creatinine Clr Calc Pharmacy 37.6 ml/min; Est GFR (African American) 46.4; Est GFR (Non-African American) 40.1; Magnesium 2.2 mg/dl (1.8-2.4); Potassium 3.2 mmol/L (3.5-5.1)
[2019-09-18] MEDS: FERROUS SULFATE 325 MG TAB PO SCH (08:40)
[2019-09-18] MEDS: METHOCARBAMOL 500 MG TABLET PO SCH ×2 (08:41→20:28)
[2019-09-18] MEDS: METOPROLOL SUCC 25MG EXT REL TAB PO SCH ×2 (08:41→20:27)
[2019-09-18] MEDS: APIXABAN 5 MG TABLET PO SCH ×2 (08:41→20:29)
[2019-09-18] MEDS: PANTOprazole 40 MG TAB PO SCH ×2 (08:41→20:29)
[2019-09-18] MEDS: POTASSIUM CHLORIDE 20 MEQ TABCR PO SCH ×2 (08:42→16:21)
[2019-09-18] MEDS: GABAPENTIN 400 MG CAP PO SCH ×2 (08:42→20:27)
[2019-09-18] MEDS: TORSEMIDE 20 MG TAB PO SCH ×2 (08:42→21:10)
[2019-09-18] MEDS: INSULIN ASPART 100 UNITS/ML 3 ML PEN SC SCH ×4 (08:45→20:26)
[2019-09-18] MEDS ORDERED: cefTRIAXone SODIUM 1,000 MG in DEXTROSE 5% 50 ML IV SCH (09:00)
[2019-09-18] MEDS ORDERED: POTASSIUM CHLORIDE 20 MEQ TABCR PO STA (10:40)
[2019-09-18] MEDS: OXYCODONE HCL IR 5 MG TAB (IMMEDIATE RELEASE) PO PRN ×2 (10:56→21:48)
--- NOTE | 2019-09-18 14:42 | Ultrasound Report ---
TESTICULAR ULTRASOUND HISTORY: Epididymitis COMPARISON: None. FINDINGS: Right testis: 3.6 x 2.3 x 1.8 cm. No intratesticular masses. A few scattered microliths are noted. A 6 mm cyst within the epididymal head. Thickened epididymis demonstrating increased color flow. Small hydrocele. Left testis: 2.9 x 2.4 x 1.8 cm. No intratesticular masses. A few scattered microliths are noted. A 1 cm cyst within the epididymal head. Thickened epididymis demonstrating increased color flow. Small h ydrocele. IMPRESSION: 1. Thickened bilateral epididymides demonstrate increased color flow consistent with a bilateral epid idymitis. 2. Small bilateral hydroceles. 3. Bilateral epididymal head cysts. ACT 112: Negative or not required by law. Electronically signed by: Felix Hall M.D. 09/18/2019 2:41 PM
[2019-09-18] MEDS ORDERED: SULFAMETHOXAZOLE/TRIMETHOPRIM DS 800/160MG TAB PO ONE (15:32)
--- NOTE | 2019-09-18 15:50 | Hospitalist Progress Note ---
Date of Service September 18, 2019 Assessment & Plan (1) Acute epididymitis: Presented with left groin pain CT of the abdomen pelvis did not show any significant findings Complaint of pain in the left testicle Ultrasound showed acute epididymitis involving both the testes Sexually not active Will give Bactrim DS twice daily for a total of 10 days Present on Admission?: Yes (2) Left groin pain: Pt is 78 y/o M with PMH DM II, HTN, dyslipidemia, cardiac amyloidosis, chronic systolic and diastolic heart failure, nonischemic cardiomyopathy, persistent A-fib on Eliquis s/p cardioversion 06/2019, aortic valve stenosis, h/o pacemaker, CKD III, chronic low back pain presented to ER with c/o left groin pain. Pt reports hx previously diagnosed left inguinal hernia and having intermittent intermittent left groin pain for couple of years with activity/coughing. Has been able to self reduce. Recently increased left groin pain with movement/coughing. In ER afebrile, P: 71, R: 18, BP: 91/6 up to 101/63, 100% on RA. WBC: 13, H/H: 13.9/40 (baseline Hgb: 14.5) CT ABD/PELVIS: No acute process within the abdomen or pelvis on unenhanced exam. No hydronephrosis or ureteral calculi. Moderate enlargement of the prostate. No bowel obstruction. -In ER given morphine 2mg IV -Has been on intravenous ceftriaxone -Urine culture is growing E. coli -We will change antibiotic to Bactrim DS -Await culture (3) Acute UTI: As above (4) Hematuria: reports hematuria x 2 days. Denies dysuria, flank pain. Reports gradual urinary incontinence over past several months. Has appointment to get established with Dr Marti in 10/2019. UA: 3+blood, +nitrite, 2+leuk esterase, 4+bacteria -In ER given Rocephin -Urine culture pending -Rocephin -CBC in am -Continue Eliquis and monitor for further hematuria -If worsening hematuria consider urology consult -Resolved (5) Hypokalemia: Pt on chronic diuretics, has not been taking his oral potassium supplements as directed K: 3.0 -Replace and monitor -Resume oral potassium supplement -We will monitor (6) Chronic combined systolic and diastolic CHF (congestive heart failure): (7) Nonischemic cardiomyopathy: H/O Pacemaker Current euvolemic -Continue torsemide (8) History of peristent atrial fibrillation: On Eliquis. S/P successful cardioversion in 06/2019. Not on amiodarone secondary to elevated LFTs in past -Continue metoprolol -Continue Eliquis (9) Cardiac amyloidosis: -Continue tafamidis (10) Diabetes mellitus, type II: Current diet controlled A1c: 7.3 in 06/2019 -Monitor BSGs -Novolog sliding scale per protocol (11) CKD (chronic kidney disease), stage III: BUN: 31, Cr: 1.76, GFR: 36. Baseline Cr~1.5-1.7 -Monitor renal functions -Avoid nephrotoxic agents when possible (12) Chronic back pain: -Continue oxycodone, methocarbamol, gabapentin DVT Prophylaxis -On Eliquis _ Full Code as per discussion with pt, however reports would not want on prolonged life support if poor prognosis. Follows with [facility] for routine care. Reports planning on establishing with Dr Jimenez - [facility] [place] Subjective 09/18/2019 The patient was seen and examined in medical floor He was admitted with left groin pain and noted to have acute UTI with E. coli Complaining testicular pain the left side may Ultrasound showed epididymitis involving both the testicles Review of Systems Review of Systems: All systems reviewed and are unremarkable except as noted below Genitourinary: + genital pain, + scrotal swelling and + testicle pain Physical Exam Physical Exam: Lying in bed comfortably Constitutional: well developed, well nourished and + acute distress (Minimal p ain in the scrotum); not ill appearing Eyes: PERRL, conjunctivae normal, anicteric sclerae ENMT: external ear and nose normal, oropharynx normal Neck: trachea midline, no thyromegaly Respiratory: normal respiratory effort; no respiratory distress Auscultation: lungs clear to auscultation bilaterally Cardiovascular: Rate/Rhythm: regular rate and regular rhythm Heart Sounds: no murmur Gastrointestinal (Abdomen): Inspection/Auscultation: abdomen normal to inspection and normal bowel sounds Percussion/Palpation: abdomen soft; abdomen nontender Musculoskeletal: No acute arthritis in any joint Genitourinary: + scrotum abnormality and + testes abnormality (Bilateral testicular pain with enlargement); no CVA tenderness Results & Data ([facility]) Vital Signs (Past 12 Hours) Vital Signs Temp Pulse Pulse Resp BP BP Pulse Ox 09/18/19 15:01 78 09/18/19 12:08 37.2 C 73 18 110/69 97 09/18/19 08:40 68 09/18/19 07:30 36.6 C 69 18 101/67 95 09/18/19 05:00 36.5 C 80 19 95/60 L 90 Laboratory Results Short CBC 09/18/19 Range/Units 06:31 WBC 17.92 H (4.8-10.8) K/uL Hgb 13.7 L (14.0-18.0) g/dL Hct 40.7 L (42-52) % Plt Count 184 (130-400) K/uL BMP 09/18/19 06:31 Sodium 135 L Potassium 3.2 L Chloride 90 L Carbon Dioxide 38 H BUN 38 H Creatinine 1.62 H Glucose 173 H Calcium 9.2 Medications Administered Current Inpatient Medications Acetaminophen (Tylenol) 650 mg PO Q4H PRN PRN Reason: Pain or Fever Stop: 10/17/19 16:42 Last Admin: 09/17/19 17:20 Dose: 650 mg Documented by: Apixaban (Eliquis) 5 mg PO BID [facility] Stop: 10/17/19 20:59 Last Admin: 09/18/19 08:41 Dose: 5 mg Documented by: Dextrose (Dextrose 50%) 25 - 50 ml IV UD PRN; Protocol PRN Reason: Hypoglycemia Protocol Stop: 10/17/19 16:42 Ferrous Sulfate (Feosol) 325 mg PO QAM [facility] Stop: 10/18/19 08:59 Last Admin: 09/18/19 08:40 Dose: 325 mg Documented by: Gabapentin (Neurontin) 400 mg PO BID [facility] Stop: 10/17/19 20:59 Last Admin: 09/18/19 08:42 Dose: 400 mg Documented by: Glucagon (Glucagen) 1 mg SQ UD PRN; Protocol PRN Reason: Hypoglycemia Protocol Stop: 10/17/19 16:42 Glucose (Dex4 Glucose) 4 - 8 tabs PO UD PRN; Protocol PRN Reason: Hypoglycemia Protocol Stop: 10/17/19 16:42 Glucose (Glucose 40%) 15 - 30 gm PO UD PRN; Protocol PRN Reason: Hypoglycemia Protocol Stop: 10/17/19 16:42 Insulin Aspart (Novolog Flexpen) 0 units SC ACHS [facility] Stop: 10/17/19 16:42 Last Admin: 09/18/19 12:18 Dose: 3 units Documented by: Methocarbamol (Robaxin) 500 mg PO BID [facility] Stop: 10/17/19 20:59 Last Admin: 09/18/19 08:41 Dose: 500 mg Documented by: Metoprolol Succinate (Toprol Xl) 25 mg PO BID [facility] Stop: 10/17/19 20:59 Last Admin: 09/18/19 08:41 Dose: 25 mg Documented by: Miscellaneous (Carbohydrates For Hypoglycemia) 15 - 30 gm PO UD PRN PRN Reason: Hypoglycemia Protocol Stop: 10/17/19 16:42 Miscellaneous (Order Awaiting Action) 1 ea N/A QS [facility] Stop: 10/17/19 16:59 Last Admin: 09/18/19 08:42 Dose: Not Given Documented by: Morphine Sulfate (Morphine Sulfate) 2 mg IV Q4H PRN PRN Reason: Severe Pain Stop: 10/01/19 16:42 Ondansetron HCl (Zofran) 4 mg IV Q6H PRN PRN Reason: Nausea Stop: 10/17/19 16:42 Oxycodone HCl (Roxicodone Immediate Rel) 5 mg PO Q6H PRN PRN Reason: Pain Stop: 10/01/19 16:57 Last Admin: 09/18/19 10:56 Dose: 5 mg Documented by: Pantoprazole Sodium (Protonix) 40 mg PO BID [facility] Stop: 10/17/19 20:59 Last Admin: 09/18/19 08:41 Dose: 40 mg Documented by: Polyethylene Glycol (Miralax Powder Packet) 17 gm PO DAILY PRN PRN Reason: Constipation Stop: 10/17/19 16:42 Potassium Chloride (Klor-Con M20) 20 meq PO BIDM [facility] Stop: 10/18/19 08:59 Last Admin: 09/18/19 08:42 Dose: 20 meq Documented by: Torsemide (Demadex) 60 mg PO HS [facility] Stop: 10/17/19 20:59 Last Admin: 09/17/19 20:41 Dose: 60 mg Documented by: Torsemide (Demadex) 40 mg PO QAM [facility] Stop: 10/18/19 08:59 Last Admin: 09/18/19 08:42 Dose: 40 mg Documented by: Trimethoprim/Sulfamethoxazole (Septra Ds 800/160mg Tab) 1 tab PO Q12 [facility] Stop: 09/28/19 20:59 (1) Hematuria Hematuria type: unspecified type Qualified Code(s): R31.9 - Hematuria, unspecified
[2019-09-18] MEDS: ACETAMINOPHEN 325 MG TAB PO PRN (20:26)
[2019-09-18] MEDS: SULFAMETHOXAZOLE/TRIMETHOPRIM DS 800/160MG TAB PO SCH (20:28)
[2019-09-19] MEDS: OXYCODONE HCL IR 5 MG TAB (IMMEDIATE RELEASE) PO PRN ×4 (03:44→21:47)
[2019-09-19 06:47] LABS: Basophils # (auto) 0.02 K/uL (0-0.2); Basophils % (auto) 0.2 %; Eosinophils # (auto) 0.01 K/uL (0-0.5); Eosinophils % (auto) 0.1 %; Hemoglobin 12.8 g/dL (14.0-18.0); Immature Granulocytes # (auto) 0.03 K/uL (0.00-0.02); Immature Granulocytes % (auto) 0.2 %; Lymphocytes # (auto) 0.87 K/uL (1.2-3.4); Lymphocytes % (auto) 6.7 %; Mean Corpuscular Hemoglobin 28.4 pg (25-34); Mean Corpuscular Hgb Conc 33.7 g/dL (32-36); Mean Corpuscular Volume 84.3 fL (80-100); Mean Platelet Volume 9.9 fL (7.4-10.4); Monocytes % (auto) 11.6 %; Neutrophils # (auto) 10.55 K/uL (1.4-6.5); Neutrophils % (auto) 81.2 %; Platelet Count 174 K/uL (130-400); RDW Coefficient of Variation 16.8 % (11.5-14.5); RDW Standard Deviation 51.6 fL (36.4-46.3); Red Blood Count 4.51 M/uL (4.7-6.1); White Blood Count 12.98 K/uL (4.8-10.8)
[2019-09-19 07:34] LABS: BUN Creatinine Ratio 21.9 (10-20); Calcium 8.9 mg/dl (8.5-10.1); Creatinine Clr Calc Pharmacy 34.2 ml/min; Est GFR (African American) 41.4; Est GFR (Non-African American) 35.7; Potassium 3.5 mmol/L (3.5-5.1)
[2019-09-19] MEDS: INSULIN ASPART 100 UNITS/ML 3 ML PEN SC SCH ×4 (08:27→20:59)
[2019-09-19] MEDS: FERROUS SULFATE 325 MG TAB PO SCH (08:28)
[2019-09-19] MEDS: METOPROLOL SUCC 25MG EXT REL TAB PO SCH ×2 (08:28→20:59)
[2019-09-19] MEDS: GABAPENTIN 400 MG CAP PO SCH ×2 (08:28→21:01)
[2019-09-19] MEDS: TORSEMIDE 20 MG TAB PO SCH ×2 (08:29→20:59)
[2019-09-19] MEDS: PANTOprazole 40 MG TAB PO SCH ×2 (08:29→21:01)
[2019-09-19] MEDS: SULFAMETHOXAZOLE/TRIMETHOPRIM DS 800/160MG TAB PO SCH ×2 (08:30→21:02)
[2019-09-19] MEDS: APIXABAN 5 MG TABLET PO SCH ×2 (08:30→21:00)
[2019-09-19] MEDS: METHOCARBAMOL 500 MG TABLET PO SCH ×2 (08:30→21:01)
[2019-09-19] MEDS: POTASSIUM CHLORIDE 20 MEQ TABCR PO SCH ×2 (08:30→17:18)
[2019-09-19] MEDS: SODIUM CHLORIDE 0.9% 1000ML 1,000 ML IV SCH ×2 (09:57→20:59)
--- NOTE | 2019-09-19 11:10 | Hospitalist Progress Note ---
Date of Service September 19, 2019 Assessment & Plan (1) Acute epididymitis: Presented with left groin pain CT of the abdomen pelvis did not show any significant findings Complaint of pain in the left testicle Ultrasound showed acute epididymitis involving both the testes Sexually not active Will give Bactrim DS twice daily for a total of 10 days Started on Bactrim yesterday with improvement of pain in the testicles Will watch for worsening of kidney function Advised to drink liquids more fluid and will give cautious amount of intravenous fluid Monitor PRP. White cell count has been improving Likely be discharged on Saturday (2) Left groin pain: Pt is 78 y/o M with PMH DM II, HTN, dyslipidemia, cardiac amyloidosis, chronic systolic and diastolic heart failure, nonischemic cardiomyopathy, persistent A-fib on Eliquis s/p cardioversion 06/2019, aortic valve stenosis, h/o pacemaker, CKD III, chronic low back pain presented to ER with c/o left groin pain. Pt reports hx previously diagnosed left inguinal hernia and having intermittent intermittent left groin pain for couple of years with activity/coughing. Has been able to self reduce. Recently increased left groin pain with movement/coughing. In ER afebrile, P: 71, R: 18, BP: 91/6 up to 101/63, 100% on RA. WBC: 13, H/H: 13.9/40 (baseline Hgb: 14.5) CT ABD/PELVIS: No acute process within the abdomen or pelvis on unenhanced exam. No hydronephrosis or ureteral calculi. Moderate enlargement of the prostate. No bowel obstruction. -In ER given morphine 2mg IV -Has been on intravenous ceftriaxone -Urine culture is growing E. coli -We will change antibiotic to Bactrim DS -Await culture-grew E. coli and pansensitive (3) Acute UTI: As above (4) Hematuria: reports hematuria x 2 days. Denies dysuria, flank pain. Reports gradual urinary incontinence over past several months. Has appointment to get established with Dr Marti in 10/2019. UA: 3+blood, +nitrite, 2+leuk esterase, 4+bacteria -In ER given Rocephin -Urine culture pending -Rocephin -Continue Eliquis and monitor for further hematuria -If worsening hematuria consider urology consult -Resolved (5) Hypokalemia: Pt on chronic diuretics, has not been taking his oral potassium supplements as directed K: 3.0 -Replace and monitor -Resume oral potassium supplement -We will monitor (6) Chronic combined systolic and diastolic CHF (congestive heart failure): (7) Nonischemic cardiomyopathy: H/O Pacemaker Current euvolemic -Continue torsemide (8) History of peristent atrial fibrillation: On Eliquis. S/P successful cardioversion in 06/2019. Not on amiodarone secondary to elevated LFTs in past -Continue metoprolol -Continue Eliquis (9) Cardiac amyloidosis: -Continue tafamidis (10) Diabetes mellitus, type II: Current diet controlled A1c: 7.3 in 06/2019 -Monitor BSGs -Novolog sliding scale per protocol (11) CKD (chronic kidney disease), stage III: BUN: 31, Cr: 1.76, GFR: 36. Baseline Cr~1.5-1.7 -Monitor renal functions -Avoid nephrotoxic agents when possible (12) Chronic back pain: -Continue oxycodone, methocarbamol, gabapentin DVT Prophylaxis -On Eliquis _ Full Code as per discussion with pt, however reports would not want on prolonged life support if poor prognosis. Follows with [facility] for routine care. Reports planning on establishing with Dr Jimenez - [facility] [place] Subjective 09/18/2019 The patient was seen and examined in medical floor He was admitted with left groin pain and noted to have acute UTI with E. coli Complaining testicular pain the left side may Ultrasound showed epididymitis involving both the testicles 09/19/2019 The patient was seen and examined in medical floor He complains of some pain right greater trochanteric area and right hip His left groin and testicular pain have improved Denies any fever and/or chills Review of Systems Review of Systems: All systems reviewed and are unremarkable except as noted below Genitourinary: + genital pain (Much better), + scrotal swelling (Much better) and + testicle pain (Improved) Physical Exam Physical Exam: Lying in bed comfortably Constitutional: well developed, well nourished and + acute distress (Minimal pain in the scrotum); not ill appearing Eyes: PERRL, conjunctivae normal, anicteric sclerae ENMT: external ear and nose normal, oropharynx normal Neck: trachea midline, no thyromegaly Respiratory: normal respiratory effort; no respiratory distress Auscultation: lungs clear to auscultation bilaterally Cardiovascular: Rate/Rhythm: regular rate and regular rhythm Heart Sounds: no murmur Gastrointestinal (Abdomen): Inspection/Auscultation: abdomen normal to inspection and normal bowel sounds Percussion/Palpation: abdomen soft; abdomen nontender and no hernia Genitourinary: + testes abnormality (Bilateral testicular pain with enlargement-improving as of today); no CVA tenderness Results & Data ([facility]) Vital Signs (Past 12 Hours) Vital Signs Temp Pulse Pulse Resp BP Pulse Ox 09/19/19 07:54 37.0 C 64 18 90/57 L 91 09/19/19 03:30 36.8 C 77 18 96/62 L 92 09/19/19 00:39 76 09/18/19 23:40 36.7 C 98 H 18 91/61 L 94 Laboratory Results Short CBC 09/19/19 Range/Units 06:28 WBC 12.98 H (4.8-10.8) K/uL Hgb 12.8 L (14.0-18.0) g/dL Hct 38.0 L (42-52) % Plt Count 174 (130-400) K/uL BMP 09/19/19 06:28 Sodium 136 Potassium 3.5 Chloride 92 L Carbon Dioxide 38 H BUN 39 H Creatinine 1.78 H Glucose 155 H Calcium 8.9 Medications Administered Current Inpatient Medications Acetaminophen (Tylenol) 650 mg PO Q4H PRN PRN Reason: Pain or Fever Stop: 10/17/19 16:42 Last Admin: 09/18/19 20:26 Dose: 650 mg Documented by: Apixaban (Eliquis) 5 mg PO BID [facility] Stop: 10/17/19 20:59 Last Admin: 09/19/19 08:30 Dose: 5 mg Documented by: Dextrose (Dextrose 50%) 25 - 50 ml IV UD PRN; Protocol PRN Reason: Hypoglycemia Protocol Stop: 10/17/19 16:42 Ferrous Sulfate (Feosol) 325 mg PO QAM [facility] Stop: 10/18/19 08:59 Last Admin: 09/19/19 08:28 Dose: 325 mg Documented by: Gabapentin (Neurontin) 400 mg PO BID [facility] Stop: 10/17/19 20:59 Last Admin: 09/19/19 08:28 Dose: 400 mg Documented by: Glucagon (Glucagen) 1 mg SQ UD PRN; Protocol PRN Reason: Hypoglycemia Protocol Stop: 10/17/19 16:42 Glucose (Dex4 Glucose) 4 - 8 tabs PO UD PRN; Protocol PRN Reason: Hypoglycemia Protocol Stop: 10/17/19 16:42 Glucose (Glucose 40%) 15 - 30 gm PO UD PRN; Protocol PRN Reason: Hypoglycemia Protocol Stop: 10/17/19 16:42 Sodium Chloride (Nss 1000ml) 1,000 mls @ 80 mls/hr IV .[id number] [facility] Stop: 09/20/19 09:59 Last Admin: 09/19/19 09:57 Dose: 80 mls/hr Documented by: Insulin Aspart (Novolog Flexpen) 0 units SC ACHS [facility] Stop: 10/17/19 16:42 Last Admin: 09/19/19 08:27 Dose: 5 units Documented by: Methocarbamol (Robaxin) 500 mg PO BID [facility] Stop: 10/17/19 20:59 Last Admin: 09/19/19 08:30 Dose: 500 mg Documented by: Metoprolol Succinate (Toprol Xl) 25 mg PO BID [facility] Stop: 10/17/19 20:59 Last Admin: 09/19/19 08:28 Dose: 25 mg Documented by: Miscellaneous (Carbohydrates For Hypoglycemia) 15 - 30 gm PO UD PRN PRN Reason: Hypoglycemia Protocol Stop: 10/17/19 16:42 Miscellaneous (Order Awaiting Action) 1 ea N/A QS [facility] Stop: 10/17/19 16:59 Last Admin: 09/19/19 08:31 Dose: Not Given Documented by: Morphine Sulfate (Morphine Sulfate) 2 mg IV Q4H PRN PRN Reason: Severe Pain Stop: 10/01/19 16:42 Ondansetron HCl (Zofran) 4 mg IV Q6H PRN PRN Reason: Nausea Stop: 10/17/19 16:42 Oxycodone HCl (Roxicodone Immediate Rel) 5 mg PO Q6H PRN PRN Reason: Pain Stop: 10/01/19 16:57 Last Admin: 09/19/19 09:50 Dose: 5 mg Documented by: Pantoprazole Sodium (Protonix) 40 mg PO BID [facility] Stop: 10/17/19 20:59 Last Admin: 02/08/20 08:29 Dose: 40 mg Documented by: Polyethylene Glycol (Miralax Powder Packet) 17 gm PO DAILY PRN PRN Reason: Constipation Stop: 10/17/19 16:42 Last Admin: 09/19/19 09:50 Dose: 17 gm Documented by: Potassium Chloride (Klor-Con M20) 20 meq PO BIDM [facility] Stop: 10/18/19 08:59 Last Admin: 09/19/19 08:30 Dose: 20 meq Documented by: Torsemide (Demadex) 60 mg PO HS [facility] Stop: 10/17/19 20:59 Last Admin: 09/18/19 21:10 Dose: Not Given Documented by: Torsemide (Demadex) 40 mg PO QAM [facility] Stop: 10/18/19 08:59 Last Admin: 09/19/19 08:29 Dose: 40 mg Documented by: Trimethoprim/Sulfamethoxazole (Septra Ds 800/160mg Tab) 1 tab PO Q12 [facility] Stop: 09/28/19 20:59 Last Admin: 09/19/19 08:30 Dose: 1 tab Documented by: (1) Hematuria Hematuria type: unspecified type Qualified Code(s): R31.9 - Hematuria, unspecified
[2019-09-19] MEDS: ACETAMINOPHEN 325 MG TAB PO PRN (23:32)
[2019-09-20] MEDS: OXYCODONE HCL IR 5 MG TAB (IMMEDIATE RELEASE) PO PRN ×4 (03:48→22:45)
[2019-09-20 06:13] LABS: Basophils # (auto) 0.02 K/uL (0-0.2); Basophils % (auto) 0.2 %; Eosinophils # (auto) 0.02 K/uL (0-0.5); Eosinophils % (auto) 0.2 %; Hematocrit (blood only) 36.8 % (42-52); Hemoglobin 12.3 g/dL (14.0-18.0); Immature Granulocytes # (auto) 0.02 K/uL (0.00-0.02); Immature Granulocytes % (auto) 0.2 %; Lymphocytes # (auto) 1.11 K/uL (1.2-3.4); Lymphocytes % (auto) 12.9 %; Mean Corpuscular Hemoglobin 28.1 pg (25-34); Mean Corpuscular Hgb Conc 33.4 g/dL (32-36); Mean Corpuscular Volume 84.2 fL (80-100); Mean Platelet Volume 10.4 fL (7.4-10.4); Monocytes # (auto) 1.49 K/uL (0.11-0.59); Monocytes % (auto) 17.3 %; Neutrophils # (auto) 5.97 K/uL (1.4-6.5); Neutrophils % (auto) 69.2 %; Platelet Count 187 K/uL (130-400); RDW Coefficient of Variation 16.8 % (11.5-14.5); RDW Standard Deviation 51.9 fL (36.4-46.3); Red Blood Count 4.37 M/uL (4.7-6.1); White Blood Count 8.63 K/uL (4.8-10.8)
[2019-09-20 06:47] LABS: BUN Creatinine Ratio 21.2 (10-20); Calcium 8.7 mg/dl (8.5-10.1); Creatinine Clr Calc Pharmacy 32.4 ml/min; Est GFR (African American) 38.8; Est GFR (Non-African American) 33.5; Potassium 4.2 mmol/L (3.5-5.1)
[2019-09-20] MEDS: INSULIN ASPART 100 UNITS/ML 3 ML PEN SC SCH ×4 (08:10→20:58)
[2019-09-20] MEDS: METHOCARBAMOL 500 MG TABLET PO SCH ×2 (08:11→21:01)
[2019-09-20] MEDS: SULFAMETHOXAZOLE/TRIMETHOPRIM DS 800/160MG TAB PO SCH ×2 (08:11→21:03)
[2019-09-20] MEDS: PANTOprazole 40 MG TAB PO SCH ×2 (08:11→21:01)
[2019-09-20] MEDS: METOPROLOL SUCC 25MG EXT REL TAB PO SCH ×2 (08:11→21:01)
[2019-09-20] MEDS: FERROUS SULFATE 325 MG TAB PO SCH (08:12)
[2019-09-20] MEDS: POTASSIUM CHLORIDE 20 MEQ TABCR PO SCH ×2 (08:12→17:14)
[2019-09-20] MEDS: APIXABAN 5 MG TABLET PO SCH ×2 (08:12→21:02)
[2019-09-20] MEDS: GABAPENTIN 400 MG CAP PO SCH ×2 (08:12→21:01)
--- NOTE | 2019-09-20 10:23 | Hospitalist Progress Note ---
Date of Service September 20, 2019 Assessment & Plan (1) Acute epididymitis: Presented with left groin pain CT of the abdomen pelvis did not show any significant findings Complaint of pain in the left testicle Ultrasound showed acute epididymitis involving both the testes Sexually not active Will give Bactrim DS twice daily for a total of 10 days Started on Bactrim yesterday with improvement of pain in the testicles Will watch for worsening of kidney function Advised to drink liquids more fluid and will give cautious amount of intravenous fluid Monitor PRP. White cell count has been improving The testicular pain and left groin pain are much better Infection seems to be under control with decreasing white count and no fever no chills Likely be discharged tomorrow (2) Left groin pain: Pt is 78 y/o M with PMH DM II, HTN, dyslipidemia, cardiac amyloidosis, chronic systolic and diastolic heart failure, nonischemic cardiomyopathy, persistent A-fib on Eliquis s/p cardioversion 06/2019, aortic valve stenosis, h/o pacemaker, CKD III, chronic low back pain presented to ER with c/o left groin pain. Pt reports hx previously diagnosed left inguinal hernia and having intermittent intermittent left groin pain for couple of years with activity/co ughing. Has been able to self reduce. Recently increased left groin pain with movement/coughing. In ER afebrile, P: 71, R: 18, BP: 91/6 up to 101/63, 100% on RA. WBC: 13, H/H: 13.9/40 (baseline Hgb: 14.5) CT ABD/PELVIS: No acute process within the abdomen or pelvis on unenhanced exam. No hydronephrosis or ureteral calculi. Moderate enlargement of the prostate. No bowel obstruction. -In ER given morphine 2mg IV -Has been on intravenous ceftriaxone -Urine culture is growing E. coli -We will change antibiotic to Bactrim DS -Await culture-grew E. coli and pansensitive -As above (3) Acute UTI: As above (4) Hematuria: reports hematuria x 2 days. Denies dysuria, flank pain. Reports gradual urinary incontinence over past several months. Has appointment to get established with Dr Marti in 10/2019. UA: 3+blood, +nitrite, 2+leuk esterase, 4+bacteria -In ER given Rocephin -Urine culture pending -Rocephin -Continue Eliquis and monitor for further hematuria -If worsening hematuria consider urology consult -Resolved (5) Hypokalemia: Pt on chronic diuretics, has not been taking his oral potassium supplements as directed K: 3.0 -Replace and monitor -Resume oral potassium supplement -Resolved (6) Chronic combined systolic and diastolic CHF (congestive heart failure): (7) Nonischemic cardiomyopathy: H/O Pacemaker Current euvolemic -Continue torsemide (8) History of peristent atrial fibrillation: On Eliquis. S/P successful cardioversion in 06/2019. Not on amiodarone secondary to elevated LFTs in past -Continue metoprolol -Continue Eliquis (9) Cardiac amyloidosis: -Continue tafamidis (10) Diabetes mellitus, type II: Current diet controlled A1c: 7.3 in 06/2019 -Monitor BSGs -Novolog sliding scale per protocol (11) CKD (chronic kidney disease), stage III: BUN: 31, Cr: 1.76, GFR: 36. Baseline Cr~1.5-1.7 -Monitor renal functions -Avoid nephrotoxic agents when possible -Kidney function is slightly worse today with creatinine of 1.88 -Advised to drink more fluid but not exceeding 1500 mL in 24 hours -We will hold morning dose of torsemide today -Monitor PRP (12) Chronic back pain: -Continue oxycodone, methocarbamol, gabapentin DVT Prophylaxis -On Eliquis _ Full Code as per discussion with pt, however reports would not want on prolonged life support if poor prognosis. Follows with [facility] for routine care. Reports planning on establishing with Dr Jimenez - [facility] [place] Will advise PT and OT evaluation and likely discharge tomorrow Subjective 09/18/2019 The patient was seen and examined in medical floor He was admitted with left groin pain and noted to have acute UTI with E. coli Complaining testicular pain the left side may Ultrasound showed epididymitis involving both the testicles 09/19/2019 The patient was seen and examined in medical floor He complains of some pain right greater trochanteric area and right hip His left groin and testicular pain have improved Denies any fever and/or chills 09/20/2019 The patient was seen and examined in medical floor Still has some pain in the left groin and testicle but much better He denies any other symptoms Review of Systems Review of Systems: All systems reviewed and are unremarkable except as noted below Genitourinary: + genital pain (Much better), + scrotal swelling (Much better) and + testicle pain (Improved) Physical Exam Physical Exam: Lying in bed comfortably Constitutional: well developed, well nourished and + acute distress (Minimal pain in the scrotum); not ill appearing Eyes: PERRL, conjunctivae normal, anicteric sclerae ENMT: external ear and nose normal, oropharynx normal Neck: trachea midline, no thyromegaly Respiratory: normal respiratory effort; no respiratory distress Auscultation: lungs clear to auscultation bilaterally Cardiovascular: Rate/Rhythm: regular rate and regular rhythm Heart Sounds: no murmur Gastrointestinal (Abdomen): Inspection/Auscultation: abdomen normal to inspection and normal bowel sounds Percussion/Palpation: abdomen soft; abdomen nontender and no hernia Genitourinary: + testes abnormality (Minimal tenderness involving the testis especially on left side but the swelling has gone down); no CVA tenderness Results & Data ([facility]) Vital Signs (Past 12 Hours) Vital Signs Temp Pulse Resp BP Pulse Ox 09/20/19 08:21 36.7 C 64 18 92/56 L 93 09/19/19 23:02 37.8 C H 78 18 98/66 L 91 Laboratory Results Short CBC 09/20/19 Range/Units 05:51 WBC 8.63 (4.8-10.8) K/uL Hgb 12.3 L (14.0-18.0) g/dL Hct 36.8 L (42-52) % Plt Count 187 (130-400) K/uL BMP 09/20/19 05:51 Sodium 135 L Potassium 4.2 D Chloride 95 L Carbon Dioxide 35 H BUN 40 H Creatinine 1.88 H Glucose 133 H Calcium 8.7 Medications Administered Current Inpatient Medications Acetaminophen (Tylenol) 650 mg PO Q4H PRN PRN Reason: Pain or Fever Stop: 10/17/19 16:42 Last Admin: 09/19/19 23:32 Dose: 650 mg Documented by: Apixaban (Eliquis) 5 mg PO BID [facility] Stop: 10/17/19 20:59 Last Admin: 09/20/19 08:12 Dose: 5 mg Documented by: Dextrose (Dextrose 50%) 25 - 50 ml IV UD PRN; Protocol PRN Reason: Hypoglycemia Protocol Stop: 10/17/19 16:42 Ferrous Sulfate (Feosol) 325 mg PO QAM [facility] Stop: 10/18/19 08:59 Last Admin: 09/20/19 08:12 Dose: 325 mg Documented by: Gabapentin (Neurontin) 400 mg PO BID [facility] Stop: 10/17/19 20:59 Last Admin: 09/20/19 08:12 Dose: 400 mg Documented by: Glucagon (Glucagen) 1 mg SQ UD PRN; Protocol PRN Reason: Hypoglycemia Protocol Stop: 10/17/19 16:42 Glucose (Dex4 Glucose) 4 - 8 tabs PO UD PRN; Protocol PRN Reason: Hypoglycemia Protocol Stop: 10/17/19 16:42 Glucose (Glucose 40%) 15 - 30 gm PO UD PRN; Protocol PRN Reason: Hypoglycemia Protocol Stop: 10/17/19 16:42 Insulin Aspart (Novolog Flexpen) 0 units SC ACHS [facility] Stop: 10/17/19 16:42 Last Admin: 09/20/19 08:10 Dose: 3 units Documented by: Methocarbamol (Robaxin) 500 mg PO BID [facility] Stop: 10/17/19 20:59 Last Admin: 09/20/19 08:11 Dose: 500 mg Documented by: Metoprolol Succinate (Toprol Xl) 25 mg PO BID [facility] Stop: 10/17/19 20:59 Last Admin: 09/20/19 08:11 Dose: 25 mg Documented by: Miscellaneous (Carbohydrates For Hypoglycemia) 15 - 30 gm PO UD PRN PRN Reason: Hypoglycemia Protocol Stop: 10/17/19 16:42 Miscellaneous (Order Awaiting Action) 1 ea N/A QS [facility] Stop: 10/17/19 16:59 Last Admin: 09/20/19 08:33 Dose: Not Given Documented by: Morphine Sulfate (Morphine Sulfate) 2 mg IV Q4H PRN PRN Reason: Severe Pain Stop: 10/01/19 16:42 Last Admin: 09/19/19 17:18 Dose: 2 mg Documented by: Ondansetron HCl (Zofran) 4 mg IV Q6H PRN PRN Reason: Nausea Stop: 10/17/19 16:42 Oxycodone HCl (Roxicodone Immediate Rel) 5 mg PO Q6H PRN PRN Reason: Pain Stop: 10/01/19 16:57 Last Admin: 09/20/19 09:54 Dose: 5 mg Documented by: Pantoprazole Sodium (Protonix) 40 mg PO BID [facility] Stop: 10/17/19 20:59 Last Admin: 09/20/19 08:11 Dose: 40 mg Documented by: Polyethylene Glycol (Miralax Powder Packet) 17 gm PO DAILY PRN PRN Reason: Constipation Stop: 10/17/19 16:42 Last Admin: 09/19/19 09:50 Dose: 17 gm Documented by: Potassium Chloride (Klor-Con M20) 20 meq PO BIDM [facility] Stop: 10/18/19 08:59 Last Admin: 09/20/19 08:12 Dose: 20 meq Documented by: Torsemide (Demadex) 60 mg PO HS [facility] Stop: 10/17/19 20:59 Last Admin: 09/19/19 20:59 Dose: Not Given Documented by: Trimethoprim/Sulfamethoxazole (Septra Ds 800/160mg Tab) 1 tab PO Q12 [facility] Stop: 09/28/19 20:59 Last Admin: 09/20/19 08:11 Dose: 1 tab Documented by: (1) Hematuria Hematuria type: unspecified type Qualified Code(s): R31.9 - Hematuria, unspecified
[2019-09-20] MEDS ORDERED: bisacodyL 10 MG SUPP PR STA (13:26)
[2019-09-20] MEDS: TORSEMIDE 20 MG TAB PO SCH (20:59)
[2019-09-21] MEDS: OXYCODONE HCL IR 5 MG TAB (IMMEDIATE RELEASE) PO PRN ×4 (04:42→21:07)
[2019-09-21] MEDS ORDERED: SOD PHOSPHATE/SOD BIPHOSPHATE ENEMA 132 ML BTL PR STA (07:47)
[2019-09-21] MEDS: GABAPENTIN 400 MG CAP PO SCH ×2 (09:01→20:37)
[2019-09-21] MEDS: FERROUS SULFATE 325 MG TAB PO SCH (09:01)
[2019-09-21] MEDS: METHOCARBAMOL 500 MG TABLET PO SCH ×2 (09:02→20:33)
[2019-09-21] MEDS: PANTOprazole 40 MG TAB PO SCH ×2 (09:03→20:35)
[2019-09-21] MEDS: METOPROLOL SUCC 25MG EXT REL TAB PO SCH ×2 (09:03→20:37)
[2019-09-21] MEDS: SULFAMETHOXAZOLE/TRIMETHOPRIM DS 800/160MG TAB PO SCH ×2 (09:03→20:38)
[2019-09-21] MEDS: POTASSIUM CHLORIDE 20 MEQ TABCR PO SCH ×2 (09:03→17:06)
[2019-09-21] MEDS: INSULIN ASPART 100 UNITS/ML 3 ML PEN SC SCH ×4 (09:04→20:33)
[2019-09-21] MEDS: APIXABAN 5 MG TABLET PO SCH ×2 (09:04→20:37)
[2019-09-21] MEDS: ACETAMINOPHEN 325 MG TAB PO PRN (09:10)
--- NOTE | 2019-09-21 10:35 | Urology Consultation ---
Date of Consultation September 21, 2019 Assessment & Plan (1) Hematuria: (2) Acute UTI: 78 yo M admitted with hematuria, left groin pain, and acute UTI. Lab work and chart reviewed. Patient is clinically improving, WBC is WNL. Final UC&S demonstrated E. Coli. Pt converted from IV Ceftriaxone to Bactrim DS. Continue antibiotics per primary team for total of 10-14 days. BCx prelim negative. Recommend supportive measures including scrotal elevation, alternating ice on and off, and rest. Hematuria: CT abd/pelvis reviewed. Will send urine cytology. Plan for outpatient cystoscopy with our service. Will continue to follow while inpatient. History of Present Illness Attending Physician: Berta Harper MD History of Present Illness 78 yo M with multiple comorbidities admitted with left groin pain, hematuria, and acute UTI. Presented to [facility] [place] ED on 09/17/19 with left groin pain and hematuria. He reports history of left inguinal hernia. Lab work showed mild leukocytosis and UA suggestive of infection. He was started on IV Ceftriaxone. Admitted for pain management and further evaluation. Patient on Eliquis. Chart review: Afebrile Cr - 1.88 WBC - 5.91 UA - +nitrates, +bacteria, > 30 RBCs, > 30 WBCs, + Leuks UC&S - E. Coli > 100,000 cfu BCx - no growth prelim CT abd/pelvis w/o con demonstrated no acute process within the abdomen or pelvis on unenhanced exam; no hydronephrosis or ureteral calculi. Moderate enlargement of the prostate. Scrotal US showed thickened bilateral epididymides demonstrate increased color flow consistent with a bilateral epididymitis, small bilateral hydroceles, bilateral epididymal head cysts. Sitting up at side of bed this morning. Reports intermittent left scrotal/groin pain which is worse with movement, moderate relief with PO pain medication. Voiding spontaneously. No dysuria. Denies recurrent gross hematuria. No abdominal or suprapubic pain. No f/c/n/v. Reports he is on a bowel regimen and has daily BMs. Reports seeing a urologist in the past. Was not on any BPH medications prior to arrival. Reports urgency at baseline, some leakage. Nocturia x1. Denies family history of prostate, bladder, or kidney cancer. Reports regular prostate cancer screening through PCP. Allergies Allergy/AdvReac Type Severity Reaction Status Date / Time No Known Allergies Allergy Mild Verified 09/17/19 08:48 Home Medications Home Medications Medication Instructions Recorded Confirmed Type ferrous sulfate [iron] 325 mg PO QAM 09/17/18 09/17/19 History gabapentin 400 mg PO BID 09/17/18 09/17/19 History glucosamine-chondroitin 1 tab PO QAM 09/17/18 09/17/19 History omeprazole 20 mg PO BID 09/17/18 09/17/19 History metoprolol succinate 25 mg PO BID 05/05/19 09/17/19 History methocarbamol 500 mg tablet 500 mg PO BID #90 tab 05/17/19 09/17/19 History Eliquis 5 mg PO BID 06/09/19 09/17/19 History ascorbic acid (vitamin C) [Vitamin 1 g PO QAM 06/29/19 09/17/19 History C] cephalexin [Keflex] 250 mg PO BID 10 Days #20 cap 09/17/19 Rx metolazone 2.5 mg PO UD 09/17/19 09/17/19 History oxycodone 5 mg PO Q6H PRN 09/17/19 09/17/19 History patisiran (lipid complex) 25 mg IV UD 09/17/19 09/17/19 History [Onpattro] potassium chloride 20 meq PO BIDM 09/17/19 09/17/19 History tafamidis 61 mg PO QAM 09/17/19 09/17/19 History torsemide 40 mg PO QAM 09/17/19 09/17/19 History torsemide 60 mg PO HS 09/17/19 09/17/19 History Patient History Medical History Atrial fibrillation new onset (2018) BPH (benign prostatic hyperplasia) Cardiac amyloidosis Chronic back pain Chronic combined systolic and diastolic CHF (congestive heart failure) CKD (chronic kidney disease), stage III Congestive heart failure Degenerative disc disease Diabetes mellitus, type II Diverticular disease GERD (gastroesophageal reflux disease) History of cardioversion 05/08/19 DONE AT [facility] [place] Hx of atrial flutter 2016 [facility] [place] per medical record Hyperlipidemia Hypertension ICD (implantable cardioverter-defibrillator) in place IMPLANTED 05/30 [employer] (DR. BRYANT) On anticoagulant therapy Osteoarthritis Scoliosis Spinal stenosis Surgical History History of appendectomy History of arthroscopy RT SHOULDER History of back surgery LUMBAR SPINE History of cardiac cath SUMMER 2017 - [facility] - REASON? - NO STENTS/ANGIOPLASTY - DR. BRYANT History of carpal tunnel release BL History of cataract surgery RT/LEFT History of colonoscopy History of esophagogastroduodenoscopy (EGD) History of tooth extraction S/P epidural steroid injection Lumbar Family History Mother FHx: breast cancer Grandmother (Paternal) FHx: stroke Grandmother (Paternal) FHx: myocardial infarction Social History Preferred Language: Persian Communication Ability: Effective Train Engineer Required: No Beliefs That Will Affect Care: None Current Living Situation: Alone current occupation: Retired Other Information That Helps Us Care for You: No Feels Safe at Home: Yes Safety Concerns: Feels Safe At This Time Smoking Status: Former smoker Tobacco Type: cigarettes ; Do You Dip or Chew Tobacco: No ; Second Hand Exposure: No ; Tobacco Cessation Education Requested by Patient: No Hx Alcohol Use: No Hx Substance Use: No Review of Systems Constitutional: as per Subjective / HPI Gastrointestinal: as per Subjective / HPI Genitourinary: + as per Subjective / HPI Physical Exam Constitutional: well developed and well nourished; no acute distress and not ill appearing Cardiovascular: Extremities: no pedal edema Gastrointestinal (Abdomen): Inspection/Auscultation: abdomen normal to inspection; abdomen not distended Percussion/Palpation: abdomen soft; abdomen nontender and no guarding Musculoskeletal: Head/Neck/Chest: normocephalic and head atraumatic Neurologic: moves all extremities and awake Psychiatric: A+Ox3, euthymic affect Genitourinary: Uncircumcised penis. Left testis slightly firm, tender to palpation. Mild left scrotal swelling. No significant warmth or erythema noted. Results & Data Vital Signs (Past 12 Hours) Vital Signs Temp Pulse Resp BP Pulse Ox 09/21/19 07:34 36.8 C 65 18 91/58 L 96 09/21/19 03:54 67 102/65 09/20/19 22:49 37.1 C 75 20 106/68 94 PG Care Time/CCT Total # of Minutes Spent Total Time Spent with Patient: Total time spent is greater than 50% in coordination of care (as documented) at patient's floor/unit and/or counseling patient: Coding Level of Care Code 01345 Inpt Consult Level 3 Diagnoses Hematuria R31.9 Hematuria type: unspecified type Acute UTI N39.0 (1) Hematuria Hematuria type: unspecified type Qualified Code(s): R31.9 - Hematuria, unspecified
[2019-09-21 11:59] LABS: Basophils # (auto) 0.03 K/uL (0-0.2); Basophils % (auto) 0.5 %; Eosinophils # (auto) 0.02 K/uL (0-0.5); Eosinophils % (auto) 0.3 %; Hematocrit (blood only) 38.8 % (42-52); Hemoglobin 12.9 g/dL (14.0-18.0); Immature Granulocytes # (auto) 0.02 K/uL (0.00-0.02); Immature Granulocytes % (auto) 0.3 %; Mean Corpuscular Hemoglobin 27.7 pg (25-34); Mean Corpuscular Hgb Conc 33.2 g/dL (32-36); Mean Corpuscular Volume 83.4 fL (80-100); Mean Platelet Volume 10.1 fL (7.4-10.4); Monocytes # (auto) 0.33 K/uL (0.11-0.59); Monocytes % (auto) 5.6 %; Neutrophils # (auto) 4.21 K/uL (1.4-6.5); Neutrophils % (auto) 71.3 %; Platelet Count 198 K/uL (130-400); RDW Coefficient of Variation 16.6 % (11.5-14.5); RDW Standard Deviation 50.3 fL (36.4-46.3); Red Blood Count 4.65 M/uL (4.7-6.1); White Blood Count 5.91 K/uL (4.8-10.8)
[2019-09-21 12:29] LABS: BUN Creatinine Ratio 19.1 (10-20); Calcium 8.9 mg/dl (8.5-10.1); Creatinine Clr Calc Pharmacy 30.9 ml/min; Est GFR (African American) 36.6; Est GFR (Non-African American) 31.6; Magnesium 2.5 mg/dl (1.8-2.4); Potassium 3.9 mmol/L (3.5-5.1)
--- NOTE | 2019-09-21 12:47 | Hospitalist Progress Note ---
Date of Service September 21, 2019 Assessment & Plan (1) Acute epididymitis: Presented with left groin pain CT of the abdomen pelvis did not show any significant findings Complaint of pain in the left testicle Ultrasound showed acute epididymitis involving both the testes Sexually not active Will give Bactrim DS twice daily for a total of 10 days Started on Bactrim yesterday with improvement of pain in the testicles Will watch for worsening of kidney function Advised to drink liquids more fluid and will give cautious amount of intravenous fluid Monitor PRP. White cell count has been improving The testicular pain and left groin pain are much better Infection seems to be under control with decreasing white count and no fever no chills Condition got worse as of today with increasing pain and swelling Will ask urologic evaluation We will continue current medications (2) Left groin pain: Pt is 78 y/o M with PMH DM II, HTN, dyslipidemia, cardiac amyloidosis, chronic systolic and diastolic heart failure, nonischemic cardiomyopathy, persistent A-fib on Eliquis s/p cardioversion 06/2019, aortic valve stenosis, h/o pacemaker, CKD III, chronic low back pain presented to ER with c/o left groin pain. Pt reports hx previously diagnosed left inguinal hernia and having intermittent intermittent left groin pain for couple of years with activity/coughing. Has been able to self reduce. Recently increased left groin pain with movement/coughing. In ER afebrile, P: 71, R: 18, BP: 91/6 up to 101/63, 100% on RA. WBC: 13, H/H: 13.9/40 (baseline Hgb: 14.5) CT ABD/PELVIS: No acute process within the abdomen or pelvis on unenhanced exam. No hydronephrosis or ureteral calculi. Moderate enlargement of the prostate. No bowel obstruction. -In ER given morphine 2mg IV -Has been on intravenous ceftriaxone -Urine culture is growing E. coli -We will change antibiotic to Bactrim DS -Await culture-grew E. coli and pansensitive -As above (3) Acute UTI: As above (4) Hematuria: reports hematuria x 2 days. Denies dysuria, flank pain. Reports gradual urinary incontinence over past several months. Has appointment to get established with Dr Marti in 10/2019. UA: 3+blood, +nitrite, 2+leuk esterase, 4+bacteria -In ER given Rocephin -Urine culture pending -Rocephin -Continue Eliquis and monitor for further hematuria -If worsening hematuria consider urology consult -Resolved (5) Hypokalemia: Pt on chronic diuretics, has not been taking his oral potassium supplements as directed K: 3.0 -Replace and monitor -Resume oral potassium supplement -Resolved (6) Chronic combined systolic and diastolic CHF (congestive heart failure): (7) Nonischemic cardiomyopathy: H/O Pacemaker Current euvolemic -Continue torsemide (8) History of peristent atrial fibrillation: On Eliquis. S/P successful cardioversion in 06/2019. Not on amiodarone secondary to elevated LFTs in past -Continue metoprolol -Continue Eliquis (9) Cardiac amyloidosis: -Continue tafamidis (10) Diabetes mellitus, type II: Current diet controlled A1c: 7.3 in 06/2019 -Monitor BSGs -Novolog sliding scale per protocol (11) CKD (chronic kidney disease), stage III: BUN: 31, Cr: 1.76, GFR: 36. Baseline Cr~1.5-1.7 -Monitor renal functions -Avoid nephrotoxic agents when possible -Kidney function is slightly worse today with creatinine of 1.88 -Advised to drink more fluid but not exceeding 1500 mL in 24 hours -We will hold morning dose of torsemide today -Monitor PRP -Creatinine has been worsening -Likely contributed by use of Bactrim -We will try to change antibiotic after consulting with urologist -Advised to continue reasonable fluid intake as advised (12) Chronic back pain: -Continue oxycodone, methocarbamol, gabapentin DVT Prophylaxis -On Eliquis _ Full Code as per discussion with pt, however reports would not want on prolonged life support if poor prognosis. Follows with [facility] for routine care. Reports planning on establishing with Dr Jimenez - [facility] [place] Will advise PT and OT evaluation and likely discharge tomorrow Admission and Anticipated Discharge Date Admission Date: September 19, 2019 Subjective 09/18/2019 The patient was seen and examined in medical floor He was admitted with left groin pain and noted to have acute UTI with E. coli Complaining testicular pain the left side may Ultrasound showed epididymitis involving both the testicles 09/19/2019 The patient was seen and examined in medical floor He complains of some pain right greater trochanteric area and right hip His left groin and testicular pain have improved Denies any fever and/or chills 09/20/2019 The patient was seen and examined in medical floor Still has some pain in the left groin and testicle but much better He denies any other symptoms 09/21/2019 Patient was seen and examined in medical telemetry unit He has been complaining of more pain involving the testicles mostly on the left side Denies any fever and/or chills Definitely requiring more narcotics Review of Systems Review of Systems: All systems reviewed and are unremarkable except as noted below Genitourinary: + genital pain (Bilateral scrotal most on the left pain is worse), + scrotal swelling (Worse in the left side) and + testicle pain (Worse today) Physical Exam Physical Exam: Lying in bed comfortably Constitutional: well developed, well nourished and + acute distress (Minimal pain in the scrotum); not ill appearing Eyes: PERRL, conjunctivae normal, anicteric sclerae ENMT: external ear and nose normal, oropharynx normal Neck: trachea midline, no thyromegaly Respiratory: normal respiratory effort; no respiratory distress Auscultation: lungs clear to auscultation bilaterally Cardiovascular: Rate/Rhythm: regular rate and regular rhythm Heart Sounds: no murmur Gastrointestinal (Abdomen): Inspection/Auscultation: abdomen normal to inspection and normal bowel sounds Percussion/Palpation: abdomen soft; abdomen nontender and no hernia Genitourinary: + testes abnormality (Increasing swelling and tenderness involving both the testicles more on the left than the right); no CVA tenderness Results & Data ([facility]) Vital Signs (Past 12 Hours) Vital Signs Temp Pulse Resp BP Pulse Ox 09/21/19 07:34 36.8 C 65 18 91/58 L 96 09/21/19 03:54 67 102/65 (1) Hematuria Hematuria type: unspecified type Qualified Code(s): R31.9 - Hematuria, unspecified
[2019-09-21] MEDS: TORSEMIDE 20 MG TAB PO SCH (20:34)
[2019-09-22] MEDS: OXYCODONE HCL IR 5 MG TAB (IMMEDIATE RELEASE) PO PRN ×2 (05:31→09:55)
[2019-09-22 06:07] LABS: Basophils # (auto) 0.04 K/uL (0-0.2); Basophils % (auto) 0.7 %; Eosinophils # (auto) 0.07 K/uL (0-0.5); Eosinophils % (auto) 1.2 %; Hematocrit (blood only) 36.3 % (42-52); Hemoglobin 12.2 g/dL (14.0-18.0); Immature Granulocytes # (auto) 0.02 K/uL (0.00-0.02); Immature Granulocytes % (auto) 0.3 %; Lymphocytes # (auto) 0.96 K/uL (1.2-3.4); Lymphocytes % (auto) 15.9 %; Mean Corpuscular Hemoglobin 27.9 pg (25-34); Mean Corpuscular Hgb Conc 33.6 g/dL (32-36); Mean Corpuscular Volume 82.9 fL (80-100); Mean Platelet Volume 10.5 fL (7.4-10.4); Monocytes # (auto) 0.93 K/uL (0.11-0.59); Monocytes % (auto) 15.4 %; Neutrophils # (auto) 4.03 K/uL (1.4-6.5); Neutrophils % (auto) 66.5 %; Platelet Count 200 K/uL (130-400); RDW Coefficient of Variation 16.5 % (11.5-14.5); RDW Standard Deviation 50.2 fL (36.4-46.3); Red Blood Count 4.38 M/uL (4.7-6.1); White Blood Count 6.05 K/uL (4.8-10.8)
[2019-09-22 06:36] LABS: BUN Creatinine Ratio 18.6 (10-20); Creatinine Clr Calc Pharmacy 34.6 ml/min; Est GFR (Non-African American) 36.2; Magnesium 2.5 mg/dl (1.8-2.4); Potassium 3.7 mmol/L (3.5-5.1)
[2019-09-22] MEDS: METHOCARBAMOL 500 MG TABLET PO SCH (07:54)
[2019-09-22] MEDS: SULFAMETHOXAZOLE/TRIMETHOPRIM DS 800/160MG TAB PO SCH (07:54)
[2019-09-22] MEDS: FERROUS SULFATE 325 MG TAB PO SCH (07:54)
[2019-09-22] MEDS: POTASSIUM CHLORIDE 20 MEQ TABCR PO SCH (07:54)
[2019-09-22] MEDS: GABAPENTIN 400 MG CAP PO SCH (07:55)
[2019-09-22] MEDS: PANTOprazole 40 MG TAB PO SCH (07:55)
[2019-09-22] MEDS: APIXABAN 5 MG TABLET PO SCH (07:55)
[2019-09-22] MEDS: METOPROLOL SUCC 25MG EXT REL TAB PO SCH (07:56)
[2019-09-22] MEDS: INSULIN ASPART 100 UNITS/ML 3 ML PEN SC SCH ×2 (07:57→12:09)
--- NOTE | 2019-09-22 09:37 | Urology Progress Note ---
Date of Service September 22, 2019 Assessment & Plan (1) Acute UTI: (2) Hematuria: (3) Acute epididymitis: 78 yo M admitted with acute epididymitis, hematuria and acute UTI. - Urine cytology pending - Pt admits groin pain is improved today, though continues to complain of intermittent pain and requesting PO oxycodone - No abscess on imaging - Reassurance that pain will continue to improve with time and antibiotics - Recommend continue antibiotics per primary team for total of 10-14 days - Recommend supportive care including rest, scrotal support, ice on and off in acute phase, then transition to warm compress on and off. Tylenol as needed. Avoid NSAIDs due to CKD and cardiac hx. - Follow-up with urology outpatient as scheduled, will need a cystoscopy outpatient to complete hematuria workup Thank you for allowing us to participate in the acute care of Mr. Givens. Please reconsult us with additional questions, concerns or changes in patient status. Subjective Awake and alert, sitting up in bed. Appears comfortable. Continues to complain of intermittent left groin pain, worse with movement. States pain is improved from yesterday, but requesting PO oxycodone at regular intervals. Voiding spontaneously. Denies dysuria. No recurrent gross hematuria. No abdominal or suprapubic pain. No f/c/n/v. Reports regular BMs. Review of Systems Constitutional: as per Subjective / HPI Gastrointestinal: as per Subjective / HPI Genitourinary: + as per Subjective / HPI Physical Exam Constitutional: well developed and well nourished; no acute distress and not ill appearing Respiratory: normal respiratory effort and able to speak in complete sentences; no respiratory distress and no labored breathing Cardiovascular: Extremities: no pedal edema Gastrointestinal (Abdomen): Inspection/Auscultation: abdomen normal to inspection; abdomen not distended Percussion/Palpation: abdomen soft; abdomen nontender and no guarding Neurologic: moves all extremities and awake Psychiatric: Orientation: alert, oriented x 3 and cooperative Genitourinary: Uncircumcised penis. Left testis slightly firm, less tender to palpation than previous exam. Minimal scrotal edema. No appreciable warmth or erythema. Results & Data Vital Signs (Past 12 Hours) Vital Signs Temp Pulse Resp BP Pulse Ox 09/22/19 07:24 36.7 C 61 16 99/63 L 95 09/21/19 23:08 36.4 C L 63 17 92/55 L 96 PG Care Time/CCT Total # of Minutes Spent Total Time Spent with Patient: Total time spent is greater than 50% in coordination of care (as documented) at patient's floor/unit and/or counseling patient: Coding Level of Care Code 42699 Subseq Hosp Care Lvl 2 Diagnoses Acute UTI N39.0 Hematuria R31.9 Hematuria type: unspecified type Acute epididymitis N45.1 (1) Hematuria Hematuria type: unspecified type Qualified Code(s): R31.9 - Hematuria, unspecified
--- NOTE | 2019-09-22 10:58 | Hospitalist Progress Note ---
Date of Service September 22, 2019 Assessment & Plan (1) Acute epididymitis: Presented with left groin pain CT of the abdomen pelvis did not show any significant findings Complaint of pain in the left testicle Ultrasound showed acute epididymitis involving both the testes Sexually not active Will give Bactrim DS twice daily for a total of 10 days Started on Bactrim yesterday with improvement of pain in the testicles Will watch for worsening of kidney function Advised to drink liquids more fluid and will give cautious amount of intravenous fluid Monitor PRP. White cell count has been improving The testicular pain and left groin pain are much better Infection seems to be under control with decreasing white count and no fever no chills Condition got worse as of today with increasing pain and swelling Appreciate urology input and recommendation Clinically better today On appointment with outpatient neurologist tomorrow We will discharge him this afternoon (2) Left groin pain: Pt is 78 y/o M with PMH DM II, HTN, dyslipidemia, cardiac amyloidosis, chronic systolic and diastolic heart failure, nonischemic cardiomyopathy, persistent A-fib on Eliquis s/p cardioversion 06/2019, aortic valve stenosis, h/o pacemaker, CKD III, chronic low back pain presented to ER with c/o left groin pain. Pt reports hx previously diagnosed left inguinal hernia and having intermittent intermittent left groin pain for couple of years with activity/coughing. Has been able to self reduce. Recently increased left groin pain with movement/coughing. In ER afebrile, P: 71, R: 18, BP: 91/6 up to 101/63, 100% on RA. WBC: 13, H/H: 13.9/40 (baseline Hgb: 14.5) CT ABD/PELVIS: No acute process within the abdomen or pelvis on unenhanced exam. No hydronephrosis or ureteral calculi. Moderate enlargement of the prostate. No bowel obstruction. -In ER given morphine 2mg IV -Has been on intravenous ceftriaxone -Urine culture is growing E. coli -We will change antibiotic to Bactrim DS -Await culture-grew E. coli and pansensitive -Left groin pain is seems to be referred pain from left testicle (3) Acute UTI: As above (4) Hematuria: reports hematuria x 2 days. Denies dysuria, flank pain. Reports gradual urinary incontinence over past several months. Has appointment to get established with Dr Marti in 10/2019. UA: 3+blood, +nitrite, 2+leuk esterase, 4+bacteria -In ER given Rocephin -Urine culture pending -Rocephin -Continue Eliquis and monitor for further hematuria -If worsening hematuria consider urology consult -Resolved -We will have outpatient appointment with urologist (5) Hypokalemia: Pt on chronic diuretics, has not been taking his oral potassium supplements as directed K: 3.0 -Replace and monitor -Resume oral potassium supplement -Resolved (6) Chronic combined systolic and diastolic CHF (congestive heart failure): (7) Nonischemic cardiomyopathy: H/O Pacemaker Current euvolemic -Continue torsemide (8) History of peristent atrial fibrillation: On Eliquis. S/P successful cardioversion in 06/2019. Not on amiodarone secondary to elevated LFTs in past -Continue metoprolol -Continue Eliquis (9) Cardiac amyloidosis: -Continue tafamidis (10) Diabetes mellitus, type II: Current diet controlled A1c: 7.3 in 06/2019 -Monitor BSGs -Novolog sliding scale per protocol (11) CKD (chronic kidney disease), stage III: BUN: 31, Cr: 1.76, GFR: 36. Baseline Cr~1.5-1.7 -Monitor renal functions -Avoid nephrotoxic agents when possible -Kidney function is slightly worse today with creatinine of 1.88 -Advised to drink more fluid but not exceeding 1500 mL in 24 hours -We will hold morning dose of torsemide today -Monitor PRP -Creatinine has been worsening -Likely contributed by use of Bactrim -We will try to change antibiotic after consulting with urologist -Advised to continue reasonable fluid intake as advised -Creatinine is improving as of today -Was advised to continue fluid intake as advised and will not drink more than 1500 mL in 24 hours -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 Follows with [facility] for routine care. Reports planning on establishing with Dr Jimenez - [facility] [place] Will advise PT and OT evaluation and likely discharge tomorrow Discharge home this afternoon Admission and Anticipated Discharge Date Admission Date: September 19, 2019 Subjective 09/18/2019 The patient was seen and examined in medical floor He was admitted with left groin pain and noted to have acute UTI with E. coli Complaining testicular pain the left side may Ultrasound showed epididymitis involving both the testicles 09/19/2019 The patient was seen and examined in medical floor He complains of some pain right greater trochanteric area and right hip His left groin and testicular pain have improved Denies any fever and/or chills 09/20/2019 The patient was seen and examined in medical floor Still has some pain in the left groin and testicle but much better He denies any other symptoms 09/21/2019 Patient was seen and examined in medical telemetry unit He has been complaining of more pain involving the testicles mostly on the left side Denies any fever and/or chills Definitely requiring more narcotics 09/22/2019 The patient is seen and examined in medical floor He has been feeling a lot better today Less pain and swelling involving the left testicles Still complains of left groin pain but seems to be improving Denies any other symptoms Review of Systems Review of Systems: All systems reviewed and are unremarkable except as noted below Genitourinary: + genital pain (Bilateral scrotal most on the left pain is worse), + scrotal swelling (Worse in the left side) and + testicle pain (Worse today) Physical Exam Physical Exam: Lying in bed comfortably Constitutional: well developed and well nourished; not ill appearing Eyes: PERRL, conjunctivae normal, anicteric sclerae ENMT: external ear and nose normal, oropharynx normal Neck: trachea midline, no thyromegaly Respiratory: normal respiratory effort; no respiratory distress Auscultation: lungs clear to auscultation bilaterally Cardiovascular: Rate/Rhythm: regular rate and regular rhythm Heart Sounds: no murmur Extremities: no edema Gastrointestinal (Abdomen): Inspection/Auscultation: abdomen normal to inspection and normal bowel sounds Percussion/Palpation: abdomen soft; abdomen nontender and no hernia Musculoskeletal: No acute arthritis in any joints Genitourinary: + testes abnormality (Left testicles remains tender but decreased in intensity and the swelling is improved); no CVA tenderness Lymphatic: no cervical or axillary lymphadenopathy Results & Data ([facility]) Vital Signs (Past 12 Hours) Vital Signs Temp Pulse Resp BP Pulse Ox 09/22/19 07:24 36.7 C 61 16 99/63 L 95 09/21/19 23:08 36.4 C L 63 17 92/55 L 96 Laboratory Results Short CBC 09/21/19 09/22/19 Range/Units 11:44 05:46 WBC 5.91 6.05 (4.8-10.8) K/uL Hgb 12.9 L 12.2 L (14.0-18.0) g/dL Hct 38.8 L 36.3 L (42-52) % Plt Count 198 200 (130-400) K/uL BMP 09/21/19 09/22/19 11:44 05:46 Sodium 134 L 136 Potassium 3.9 3.7 Chloride 96 L 98 Carbon Dioxide 34 H 32 BUN 38 H 33 H Creatinine 1.97 H 1.76 H Glucose 175 H 125 H Calcium 8.9 9.0 Medications Administered Current Inpatient Medications Acetaminophen (Tylenol) 650 mg PO Q4H PRN PRN Reason: Pain or Fever Stop: 10/17/19 16:42 Last Admin: 09/21/19 09:10 Dose: 650 mg Documented by: Apixaban (Eliquis) 5 mg PO BID [facility] Stop: 10/17/19 20:59 Last Admin: 09/22/19 07:55 Dose: 5 mg Documented by: Dextrose (Dextrose 50%) 25 - 50 ml IV UD PRN; Protocol PRN Reason: Hypoglycemia Protocol Stop: 10/17/19 16:42 Ferrous Sulfate (Feosol) 325 mg PO QAM [facility] Stop: 10/18/19 08:59 Last Admin: 09/22/19 07:54 Dose: 325 mg Documented by: Gabapentin (Neurontin) 400 mg PO BID [facility] Stop: 10/17/19 20:59 Last Admin: 09/22/19 07:55 Dose: 400 mg Documented by: Glucagon (Glucagen) 1 mg SQ UD PRN; Protocol PRN Reason: Hypoglycemia Protocol Stop: 10/17/19 16:42 Glucose (Dex4 Glucose) 4 - 8 tabs PO UD PRN; Protocol PRN Reason: Hypoglycemia Protocol Stop: 10/17/19 16:42 Glucose (Glucose 40%) 15 - 30 gm PO UD PRN; Protocol PRN Reason: Hypoglycemia Protocol Stop: 10/17/19 16:42 Insulin Aspart (Novolog Flexpen) 0 units SC ACHS [facility] Stop: 10/17/19 16:42 Last Admin: 09/22/19 07:57 Dose: 6 units Documented by: Methocarbamol (Robaxin) 500 mg PO BID [facility] Stop: 10/17/19 20:59 Last Admin: 09/22/19 07:54 Dose: 500 mg Documented by: Metoprolol Succinate (Toprol Xl) 25 mg PO BID [facility] Stop: 10/17/19 20:59 Last Admin: 09/22/19 07:56 Dose: Not Given Documented by: Miscellaneous (Carbohydrates For Hypoglycemia) 15 - 30 gm PO UD PRN PRN Reason: Hypoglycemia Protocol Stop: 10/17/19 16:42 Miscellaneous (Order Awaiting Action) 1 ea N/A QS [facility] Stop: 10/17/19 16:59 Last Admin: 09/22/19 07:36 Dose: Not Given Documented by: Morphine Sulfate (Morphine Sulfate) 2 mg IV Q4H PRN PRN Reason: Severe Pain Stop: 10/01/19 16:42 Last Admin: 09/19/19 17:18 Dose: 2 mg Documented by: Ondansetron HCl (Zofran) 4 mg IV Q6H PRN PRN Reason: Nausea Stop: 10/17/19 16:42 Oxycodone HCl (Roxicodone Immediate Rel) 5 mg PO Q4H PRN PRN Reason: Pain Stop: 10/01/19 16:57 Last Admin: 09/22/19 09:55 Dose: 5 mg Documented by: Pantoprazole Sodium (Protonix) 40 mg PO BID [facility] Stop: 10/17/19 20:59 Last Admin: 09/22/19 07:55 Dose: 40 mg Documented by: Polyethylene Glycol (Miralax Powder Packet) 17 gm PO DAILY PRN PRN Reason: Constipation Stop: 10/17/19 16:42 Last Admin: 09/19/19 09:50 Dose: 17 gm Documented by: Potassium Chloride (Klor-Con M20) 20 meq PO BIDM [facility] Stop: 10/18/19 08:59 Last Admin: 09/22/19 07:54 Dose: 20 meq Documented by: Torsemide (Demadex) 60 mg PO HS [facility] Stop: 10/17/19 20:59 Last Admin: 09/21/19 20:34 Dose: Not Given Documented by: Trimethoprim/Sulfamethoxazole (Septra Ds 800/160mg Tab) 1 tab PO Q12 [facility] Stop: 09/28/19 20:59 Last Admin: 09/22/19 07:54 Dose: 1 tab Documented by: (1) Hematuria Hematuria type: unspecified type Qualified Code(s): R31.9 - Hematuria, unspecified
--- NOTE | 2019-09-22 17:06 | Discharge Summary ---
Date of Service September 22, 2019 Admission HPI Per Admitting Provider Pt is 78 y/o M with PMH DM II, HTN, dyslipidemia, cardiac amyloidosis, chronic systolic and diastolic heart failure, nonischemic cardiomyopathy, persistent A- fib s/p cardioversion 06/2019, aortic valve stenosis, h/o pacemaker, CKD III, chronic low back pain presented to ER with c/o left groin pain. Pt reports hx intermittent left groin pain and previously diagnosed left inguinal hernia for couple of years. Reports bulging with exercise or standing and has been able to "push" hernia back in. States recently increased discomfort with left groin with sitting up/coughing. Also reports hematuria x 2 days. Reports gradual worsening urinary incontinence for several months. Denies dysuria. Reports has upcoming appointment with urology in October 2019. Denies fever/chills, diaphoresis, N/V/D/C, REYNOSO, dizziness, syncope, vision changes, neck pain, CP, SOB, orthopnea, palpitations, cough, sore throat, choking, otalgia, rhinorrhea, abdominal pain, paresthesias, weakness, extremity weakness, extremity edema, rashes. Admission Exam Per Admitting Provider Physical Exam: General: no distress, WDWN Head: normocephalic, atraumatic Eyes: PERRL, EOM's intact, conjunctiva non-injected, anicteric ENT: normal inspection external ears, nose, mucous membranes moist Neck: supple, trachea midline Lungs: clear, no respiratory distress, no wheezing/rhonchi/rales CV: RRR, no murmur, no JVD, no pretibial edema Abd: normal BS, soft, +tenderness to palpation LLQ without rebound or guarding. No scrotal edema, no penile discharge Ext: no cyanosis, no calf tenderness Neuro: A&O x 3, no focal deficits noted, normal affect Skin: warm, dry Principal Diagnosis Acute epididymitis, UTI with hematuria, chronic left groin pain, nonischemic cardiomyopathy with biventricular failure Discharge Exam Constitutional well developed and well nourished; not ill appearing Eyes PERRL, conjunctivae normal, anicteric sclerae ENMT external ear and nose normal, oropharynx normal Neck trachea midline, no thyromegaly Respiratory normal respiratory effort; no respiratory distress Auscultation: lungs clear to auscultation bilaterally Cardiovascular Rate/Rhythm: regular rate and regular rhythm Heart Sounds: no murmur Extremities: no edema Gastrointestinal (Abdomen) Inspection/Auscultation: abdomen normal to inspection and normal bowel sounds Percussion/Palpation: abdomen soft; abdomen nontender and no hernia Genitourinary + testes abnormality (Left testicles remains tender but decreased in intensity and the swelling is improved); no CVA tenderness Lymphatic no cervical or axillary lymphadenopathy Discharge Data Allergies Allergy/AdvReac Type Severity Reaction Status Date / Time No Known Allergies Allergy Mild Verified 09/17/19 08:48 Consultations 09/17/19 13:20 ED Decision to Admit Stat 09/21/19 09:01 Consult Urology Routine Ordered Studies 09/17/19 08:15 CT abd pelvis wo con Stat 09/18/19 14:00 US scrotum/testicle Urgent Hospital Course (1) Acute epididymitis: Presented with left groin pain CT of the abdomen pelvis did not show any significant findings Complaint of pain in the left testicle Ultrasound showed acute epididymitis involving both the testes Sexually not active Will give Bactrim DS twice daily for a total of 10 days Started on Bactrim yesterday with improvement of pain in the testicles Will watch for worsening of kidney function Advised to drink liquids more fluid and will give cautious amount of intravenous fluid Monitor PRP. White cell count has been improving The testicular pain and left groin pain are much better Infection seems to be under control with decreasing white count and no fever no chills Condition got worse as of today with increasing pain and swelling Appreciate urology input and recommendation Clinically better today On appointment with outpatient neurologist tomorrow We will discharge him this afternoon (2) Left groin pain: Pt is 78 y/o M with PMH DM II, HTN, dyslipidemia, cardiac amyloidosis, chronic systolic and diastolic heart failure, nonischemic cardiomyopathy, persistent A-fib on Eliquis s/p cardioversion 06/2019, aortic valve stenosis, h/o pacemaker, CKD III, chronic low back pain presented to ER with c/o left groin pain. Pt reports hx previously diagnosed left inguinal hernia and having intermittent intermittent left groin pain for couple of years with a ctivity/coughing. Has been able to self reduce. Recently increased left groin pain with movement/coughing. In ER afebrile, P: 71, R: 18, BP: 91/6 up to 101/63, 100% on RA. WBC: 13, H/H: 13.9/40 (baseline Hgb: 14.5) CT ABD/PELVIS: No acute process within the abdomen or pelvis on unenhanced exam. No hydronephrosis or ureteral calculi. Moderate enlargement of the prostate. No bowel obstruction. -In ER given morphine 2mg IV -Has been on intravenous ceftriaxone -Urine culture is growing E. coli -We will change antibiotic to Bactrim DS -Await culture-grew E. coli and pansensitive -Left groin pain is seems to be referred pain from left testicle (3) Acute UTI: As above (4) Hematuria: reports hematuria x 2 days. Denies dysuria, flank pain. Reports gradual urinary incontinence over past several months. Has appointment to get established with Dr Marti in 10/2019. UA: 3+blood, +nitrite, 2+leuk esterase, 4+bacteria -In ER given Rocephin -Urine culture pending -Rocephin -Continue Eliquis and monitor for further hematuria -If worsening hematuria consider urology consult -Resolved -We will have outpatient appointment with urologist (5) Hypokalemia: Pt on chronic diuretics, has not been taking his oral potassium supplements as directed K: 3.0 -Replace and monitor -Resume oral potassium supplement -Resolved (6) Chronic combined systolic and diastolic CHF (congestive heart failure): (7) Nonischemic cardiomyopathy: H/O Pacemaker Current euvolemic -Continue torsemide (8) History of peristent atrial fibrillation: On Eliquis. S/P successful cardioversion in 06/2019. Not on amiodarone secondary to elevated LFTs in past -Continue metoprolol -Continue Eliquis (9) Cardiac amyloidosis: -Continue tafamidis (10) Diabetes mellitus, type II: Current diet controlled A1c: 7.3 in 06/2019 -Monitor BSGs -Novolog sliding scale per protocol (11) CKD (chronic kidney disease), stage III: BUN: 31, Cr: 1.76, GFR: 36. Baseline Cr~1.5-1.7 -Monitor renal functions -Avoid nephrotoxic agents when possible -Kidney function is slightly worse today with creatinine of 1.88 -Advised to drink more fluid but not exceeding 1500 mL in 24 hours -We will hold morning dose of torsemide today -Monitor PRP -Creatinine has been worsening -Likely contributed by use of Bactrim -We will try to change antibiotic after consulting with urologist -Advised to continue reasonable fluid intake as advised -Creatinine is improving as of today -Was advised to continue fluid intake as advised and will not drink more than 1500 mL in 24 hours -We will be following up with his saturator operator as an outpatient (12) Chronic back pain: -Continue oxycodone, methocarbamol, gabapentin DVT Prophylaxis -On Eliquis _ Full Code as per discussion with pt, however reports would not want on prolonged life support if poor prognosis. Follows with [facility] for routine care. Reports planning on establishing with Dr Jimenez - [facility] [place] Will advise PT and OT evaluation and likely discharge tomorrow Discharge home this afternoon Total Time Total Time Spent Total Time Spent (In Minutes): 35 minutes Total Time Includes: Examination of the Patient, Discharge Planning, Medication Reconciliation and Communication With Other Providers Discharge Plan Discharge Items Patient Disposition: Home - Self-Care Reason For Visit: GROIN PAIN Discharge Diagnosis: Acute epididymitis, UTI with hematuria, chronic left groin pain, nonischemic cardiomyopathy with biventricular failure Condition on Discharge: Good Activity: Resume your previous activity Non-emergency contact: Primary Care Provider Call non-emergency contact if: you have any medication questions Follow-up/Referrals: Fabian Meade DO [Physician] - 09/23/19 1:40 pm Gerhard Jimenez MD [Primary Care Provider] - 09/29/19 10:45 am (Your appointment with Mr. Fang on 07 October at 2:45 PM Keep your appointment with urologist) Diet: Carb Consistent or DM2 and Heart Healthy Fluids: 1500ml (6 cups) Addtl Attending Provider Instructions: Please take precaution to avoid fall Continue the supportive care for your testicular pain as advised by urologist Please do not take any potassium as long as you are on antibiotic And try to avoid taking morning dose of torsemide for the next 7 days Try to drink fluid up to 1500 mL a day Pending Studies at Discharge: Yes Studies:: Urine cytology Stand-Alone Forms: My [employer], Smoking Cessation Medications and DC Order Prescriptions: New sulfamethoxazole-trimethoprim 800-160 mg Tablet 1 tab PO Q12 7 Days Qty: 14 RF: 0 oxycodone 5 mg Tablet 5 mg PO Q4H PRN (Reason: pain) 3 Days Qty: 15 RF: 0 Continued methocarbamol 500 mg tablet 500 mg PO BID Qty: 90 RF: 0 metoprolol succinate 25 mg Tablet Extended Release 24 Hr 25 mg PO BID RF: 0 ascorbic acid (vitamin C) [Vitamin C] 1,000 mg Tablet 1 g PO QAM RF: 0 gabapentin 400 mg Capsule 400 mg PO BID RF: 0 ferrous sulfate [iron] 325 mg (65 mg iron) Tablet 325 mg PO QAM RF: 0 glucosamine-chondroitin 500-400 mg Tablet 1 tab PO QAM RF: 0 omeprazole 20 mg Tablet,Disintegrat, Delay Rel 20 mg PO BID RF: 0 Eliquis 5 mg tablet 5 mg PO BID RF: 0 metolazone 2.5 mg tablet 2.5 mg PO UD RF: 0 potassium chloride 10 mEq tablet extended release 20 meq PO BIDM RF: 0 torsemide 20 mg tablet 60 mg PO HS RF: 0 torsemide 20 mg tablet 40 mg PO QAM RF: 0 tafamidis 61 mg Capsule 61 mg PO QAM RF: 0 oxycodone 5 mg tablet 5 mg PO Q6H PRN (Reason: Pain) RF: 0 Onpattro 2 mg/mL Solution 25 mg IV UD RF: 0 Discontinued oxycodone 5 mg Tablet 5 mg PO QID PRN (Reason: Pain) RF: 0 Discharge Orders: Discharge Order (Routine); Ordered 09/22/19 Ordered By: Berta Harper Admission Data Admit Date/Time: 09/19/19 14:17 Attending Provider: Berta Harper Admit Provider: Berta Harper Primary Care Provider: Gerhard Jimenez Other Providers: Berta Harper ; Joshua Diaz Other Interventions: Discharge Summary Assessment (RN) Last Done: 09/22/19 13:29 DC Date/Time DO NOT enter until pt leaves facility: 09/22/19 15:00
== END 2019-09-22 15:00 | disposition home or self-care (01) ==
LOC: ED 07:53 → 2N 07:53

== ENCOUNTER 2020-02-19 19:51 | Observation (INO) ==
[2020-02-19] MEDS ORDERED: SODIUM CHLORIDE 0.9% 500 ML IV ONE (20:12)
[2020-02-19 20:52] LABS: Basophils # (auto) 0.04 K/uL (0-0.2); Basophils % (auto) 0.6 %; Eosinophils # (auto) 0.06 K/uL (0-0.5); Eosinophils % (auto) 0.8 %; Hematocrit (blood only) 44.1 % (42-52); Hemoglobin 14.5 g/dL (14.0-18.0); Immature Granulocytes # (auto) 0.02 K/uL (0.00-0.02); Immature Granulocytes % (auto) 0.3 %; Lymphocytes # (auto) 0.89 K/uL (1.2-3.4); Lymphocytes % (auto) 12.6 %; Mean Corpuscular Hemoglobin 27.7 pg (25-34); Mean Corpuscular Hgb Conc 32.9 g/dL (32-36); Mean Corpuscular Volume 84.3 fL (80-100); Mean Platelet Volume 9.3 fL (7.4-10.4); Monocytes # (auto) 1.07 K/uL (0.11-0.59); Monocytes % (auto) 15.1 %; Neutrophils # (auto) 5.01 K/uL (1.4-6.5); Neutrophils % (auto) 70.6 %; Platelet Count 174 K/uL (130-400); RDW Coefficient of Variation 16.6 % (11.5-14.5); RDW Standard Deviation 51.1 fL (36.4-46.3); Red Blood Count 5.23 M/uL (4.7-6.1); White Blood Count 7.09 K/uL (4.8-10.8)
[2020-02-19 21:05] LABS: INR 1.3 (0.9-1.1); Partial Thromboplastin Time 28.6 Seconds (21.0-31.0); Prothrombin Time 13.2 Seconds (9.0-12.0)
[2020-02-19 21:17] LABS: Albumin Level 3.6 gm/dl (3.4-5.0); BUN Creatinine Ratio 23.3 (10-20); Bilirubin,Total 0.9 mg/dl (0.2-1); Calcium 8.9 mg/dl (8.5-10.1); Creatinine Clr Calc Pharmacy 25.7 ml/min; Est GFR (African American) 28.5; Est GFR (Non-African American) 24.6; Globulin 3.6 gm/dl (2.5-4.0); Total Protein 7.2 gm/dl (6.4-8.2); Troponin I 0.157 ng/ml (0-0.045)
[2020-02-19 21:31] LABS: Potassium 3.1 mmol/L (3.5-5.1)
[2020-02-19 21:34] LABS: Magnesium 2.4 mg/dl (1.8-2.4)
[2020-02-19] MEDS ORDERED: POTASSIUM CHLORIDE 20 MEQ/15 ML UDC PO STA (22:20)
[2020-02-20] MEDS ORDERED: ACETAMINOPHEN 325 MG TAB PO PRN (00:07)
[2020-02-20] MEDS ORDERED: NITROGLYCERIN SL 0.4 MG/TAB TAB SL PRN (00:07)
[2020-02-20] MEDS ORDERED: SODIUM CHLORIDE 0.9% 1000ML 1,000 ML IV SCH (00:07)
[2020-02-20] MEDS ORDERED: OXYCODONE HCL IR 5 MG TAB (IMMEDIATE RELEASE) PO PRN (00:19)
--- NOTE | 2020-02-20 00:56 | History and Physical Report ---
DATE OF ADMISSION: 02/19/2020 CHIEF COMPLAINT: Some confusion, weakness. 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 The patient says today he felt like contracted, he was not thinking straight, that is the reason he came to the ER. Right now his confusion is improving. Electrolytes were slightly off and troponin is slightly more elevated than usual, so we are called for admission. Currently resting comfortably, can tell his name, knows his date of , knows today's date and place and county. Speech is clear. He states he has some occasional difficulty swallowing because of dry mouth. He has on and off chronic cough. No loss of sense of smell or taste. No fever, no chills, no chest pain, no shortness of breath, no blurred vision, no runny nose, no sore throat, no nausea, no abdominal pain. Normal bowel and bladder movements. No hematuria or burning micturition, no blood in stools or black stools. He has chronic lower extremity edema which is same as before. The patient has also complained of some tremors on both hands when he hold things. ALLERGIES: No known drug allergies. PAST MEDICAL HISTORY: As mentioned above. PAST SURGICAL HISTORY: Carpal tunnel surgery, EGDs, AICD, lumbar spine fusion surgery, appendectomy, right rotator cuff repair. MEDICATIONS: Currently on amiodarone 200 mg p.o. daily, Eliquis 2.5 mg p.o. b.i.d., vitamin C 1000 mg p.o. a.m., ferrous sulfate 325 mg p.o. a.m., glucosamine chondroitin 1 tablet p.o. a.m., methocarbamol 500 mg p.o. t.i.d., Toprol-XL 25 mg p.o. b.i.d., omeprazole 20 mg p.o. b.i.d., Onpattro 25 mg IV every 3 weeks, oxycodone 5 mg p.o. q. 6 hours p.r.n., torsemide 20 mg p.o. b.i.d., Vyndamax 61 mg p.o. a.m. FAMILY HISTORY: Significant for brother has diabetes. Father has diabetes, heart disorder, dialysis, sister has diabetes and heart disorder. SOCIAL HISTORY: Currently lives alone. Smoked 1 pack a day for 15 years, quit in 1982. Alcohol rarely. No drug use. REVIEW OF SYMPTOMS: As per HPI. Rest of review of symptoms negative. PHYSICAL EXAMINATION: GENERAL: The patient is of moderate build, not in acute distress. VITAL SIGNS: Temperature 37.3, pulse 70, respiratory rate 16, blood pressure 108/68, oxygen 96%. HEENT: No pallor, no icterus. Pupils equal and reactive to light. Oral mucosa dry. NECK: No JVD, no neck masses. CARDIOVASCULAR: S1, S2 heard, regular rate and rhythm, no murmur, no gallop. RESPIRATORY SYSTEM: Normal AP diameter. No accessory muscle use. No wheezing, no crackles. ABDOMEN: Soft, bowel sounds present, nontender. No distention. CENTRAL NERVOUS SYSTEM: Alert and oriented x3. Speech is clear. Obeys commands. Moves extremities. EXTREMITIES: Bilateral lower extremity edema present, no erythema seen. LABORATORY DATA: WBC 7, hemoglobin 14.5, hematocrit 44.1, platelets 174. PT 13.2, INR 1.3, APTT 28.6. Sodium 131, potassium 3.1, chloride 83, bicarbonate 41, BUN 56, creatinine 2.4, serum glucose 163, calcium 8.9, magnesium 2.4, total bilirubin 0.9, AST 41, ALT 37, alkaline phosphatase 84. Troponin I 0.15. IMAGING: Chest x-ray, no acute findings. EKG: Atrial paced rhythm with prolonged AV conduction at a rate of 63, no significant change was found. ASSESSMENT AND PLAN: This is a 79-year-old male who presents with feeling of confusion and not feeling well. 1. Confusion and not feeling well: Seem to getting better. He had already CT of the head, which we will follow. Currently seems to be stable. Will monitor in tele floor. PT and OT when stable. 2. Hyponatremia, hypokalemia: Will replace potassium. On gentle fluids and will labs 3. Chronic kidney disease stage III: Presents with creatinine of 2.4, seems to be around baseline. We will follow the labs in the a.m. 4. History of chronic systolic and diastolic congestive heart failure, status post AICD. His EF is 32% on echo in May 2019, currently on torsemide 20 mg p.o. b.i.d., which we will continue, on Toprol-XL.Stable. 5. History of atrial fibrillation: On amiodarone and Eliquis. 6. History of diabetes: Not on medications, diabetic diet. Follow HbA1c levels. 7. Hypertension: Continue his home medication, Toprol-XL. We will monitor the blood pressure. 8. History of cardiac amyloidosis: Continue tafamidis. 9. Chronic back pain. Continue his home medication of oxycodone and methocarbamol. 10. Deep venous thrombosis prophylaxis: On Eliquis. DISPOSITION: Admit to tele floor. PT and OT prior to discharge. Expect discharge home and follow with family doctor. Full code. MTDD
--- NOTE | 2020-02-20 01:52 | Emergency Department Note ---
History of Present Illness General Chief complaint: Illness Stated complaint: NOT FEELING WELL Time Seen by Provider: 02/19/20 20:04 Source: patient, RN notes reviewed and old records reviewed Mode of arrival: ambulatory Limitations: no limitations History of Present Illness Provider complaint: Weakness Onset (ago): day(s) 1 Relieved By: + immobilization Exacerbated By: + movement Associated symptoms: + confusion; no chest pain, no fever/chills, no headaches, no nausea/vomiting and no shortness of breath Treatments prior to arrival: none This is a 79-year-old male who presents emergency department complaining of generalized weakness. The patient reports he feels so weak and he is unsure of what is wrong. He also is complaining of foggy headedness. He has not taken anything for this. He denies any pain including chest pain or abdominal pain. He reports that this is been ongoing for the past day. Home Medications Home Medications Medication Instructions Recorded Confirmed Type ferrous sulfate [iron] 325 mg PO QAM 09/17/18 02/19/20 History glucosamine-chondroitin [Cidaflex] 1 tab PO QAM 09/17/18 02/19/20 History omeprazole 20 mg PO BID 09/17/18 02/19/20 History metoprolol succinate [Toprol XL] 25 mg PO BID 05/05/19 02/19/20 History methocarbamol 500 mg tablet 500 mg PO TID #90 tab 05/17/19 02/19/20 History ascorbic acid (vitamin C) [Vitamin 1,000 mg PO QAM 06/29/19 02/19/20 History C] Onpattro 25 mg IV .Q3W 09/17/19 02/19/20 History Vyndamax 61 mg PO QAM 09/17/19 02/19/20 History oxycodone [Roxicodone] 5 mg PO Q6H PRN 09/17/19 02/19/20 History amiodarone 200 mg PO DAILY 02/09/20 02/19/20 History apixaban [Eliquis] 2.5 mg PO Q12H #60 tab 02/09/20 02/19/20 Rx torsemide 20 mg PO BID #60 tab 02/09/20 02/19/20 Rx Allergies Allergy/AdvReac Type Severity Reaction Status Date / Time No Known Allergies Allergy Mild Verified 02/19/20 23:24 Past Med/Surg History Medical History Atrial fibrillation onset March 2019) BPH (benign prostatic hyperplasia) Cardiac amyloidosis Chronic back pain Chronic combined systolic and diastolic CHF (congestive heart failure) CKD (chronic kidney disease), stage III Seen in ED on 02/03 for acute dehydration/JOO. Baseline Cr noted to be around 2.0, was elevate at 2.7. Congestive heart failure Degenerative disc disease Diabetes mellitus, type II Diverticular disease GERD (gastroesophageal reflux disease) History of cardioversion 05/08/19 DONE AT [facility] Hx of atrial flutter 2015 [facility] per medical record Hyperlipidemia Hypertension ICD (implantable cardioverter-defibrillator) in place IMPLANTED 05/30 [employer] (DR. BRYANT) On anticoagulant therapy Osteoarthritis Scoliosis Spinal stenosis Surgical History History of appendectomy History of arthroscopy RT SHOULDER History of back surgery LUMBAR SPINE History of cardiac cath SUMMER 2017 - [facility] - REASON? - NO STENTS/ANGIOPLASTY - DR. BRYANT History of carpal tunnel release BL History of cataract surgery RT/LEFT History of colonoscopy History of esophagogastroduodenoscopy (EGD) History of tooth extraction S/P epidural steroid injection Lumbar Family History Mother FHx: breast cancer Grandmother (Paternal) FHx: stroke Grandmother (Paternal) FHx: myocardial infarction Social History Preferred Language: Maori Communication Ability: Effective Train Examiner Required: No Beliefs That Will Affect Care: None Current Living Situation: Alone current occupation: Retired Other Information That Helps Us Care for You: No Feels Safe at Home: Yes Safety Concerns: Feels Safe At This Time Smoking Status: Never smoker Tobacco Type: cigarettes ; Second Hand Exposure: No ; Hx Alcohol Use: No Hx Substance Use: No Review of Systems A total of 10 systems reviewed and were otherwise negative Physical Exam Vital Signs Vital Signs - 24 hr 02/19/20 19:52 Temperature 37.3 C Temperature Source Oral Pulse Rate 70 Respiratory Rate 16 Blood Pressure 108/68 Blood Pressure Mean 81 Pulse Oximetry 96 Sepsis Recent Fever Within 48 Hours No Sepsis New/Unexplained Change in Mental Status No Sepsis Action Taken by Nursing No Action Required VITAL SIGNS - Vital signs and nursing notes were reviewed. GENERAL - 79-year-old male appearing stated age who is in no acute distress. Communicates well with provider and answers questions appropriately. SKIN - Without rashes. HEAD - NC/AT. EYES - PERRL with EOMI bilaterally. Sclera anicteric. Palpebral conjunctiva pink and moist with no injection noted. EARS - No deformities of external structures noted on gross examination bilaterally. No pain elicited with palpation of the tragus bilaterally. External auditory canals without discharge or otorrhea. Tympanic membranes pearly pearce without retraction or bulging. No fluid or purulent material visualized behind the TM. Handle of malleus, umbo, cone of light, pars tensa/flaccid all easily visualized. NOSE - Midline and without cyanosis. No epistaxis or purulent drainage noted. Septum midline without deviation or septal hematoma noted. MOUTH/OROPHARYNX - Without perioral cyanosis. Buccal mucosa pink and moist and without leukoplakia. Tongue midline with equal elevation of palate bilaterally. No tonsillar hypertrophy, erythema, or exudates noted. dentition noted. NECK - Neck with FROM. Supple to palpation. lymphadenopathy noted. No nuchal rigidity. LUNGS - Chest wall symmetric without accessory muscle use, intercostals retractions, or central cyanosis. Normal vesicular breath sounds CTA B/L. No wheezes, rales, or rhonchi appreciated. CARDIAC - RRR with S1/S2. No murmur, rubs, or gallops appreciated. ABDOMEN - Abdominal contour without pulsations or visible masses. BS n ormoactive all four quadrants. No tenderness, palpable masses, hepatosplenomegaly, or ascites noted. EXTREMITIES - No clubbing or peripheral cyanosis. No pretibial edema present. +3/5 radial, posterior tibial, and dorsalis pedis pulses palpated throughout. +5/5 strength noted in UE/LE bilaterally. NEUROLOGIC - Cranial nerves II through XII grossly intact. Sensory intact to light touch throughout. Patellar reflexes +2/4. PSYCH - A&Ox3 and cooperates fully with examiner. Pt is very pleasant and interacts well with examiner. Course Administered Medications Sodium Chloride (Nss 1000ml) 1,000 mls @ 50 mls/hr IV .Q20H ASHLEE Stop: 02/20/20 08:00 Last Admin: 02/20/20 00:24 Dose: 50 mls/hr Documented by: [id number] Discontinued Medications Sodium Chloride (Nss) 500 mls @ 999 mls/hr IV .Q31M ONE Stop: 02/19/20 20:42 Last Infusion: 02/19/20 21:40 Dose: 0 mls/hr Documented by: [id number] Admin: 02/19/20 20:52 Dose: 999 mls/hr Documented by: [id number] Potassium Chloride (Ernestine Ciel Elix) 60 meq PO NOW STA Stop: 02/19/20 22:21 Last Admin: 02/19/20 23:10 Dose: 60 meq Documented by: [id number] Medical Decision Making Differential Diagnosis Infection, dehydration, metabolic abnormality, hypo/hyperglycemia, electrolyte disturbance, anemia, hypoxia, cardiac sources, intracerebral event, toxicologic, neurologic, as well as other pathologies. Medical Records Attestation: I reviewed the patient's medical records. Home Medications Current Medication List: was personally reviewed by me Laboratory Data Attestation: I reviewed the patient's lab results. Result diagrams: 02/19/20 20:33 02/19/20 20:33 Lab Results 02/19/20 02/19/20 02/19/20 Range/Units 20:33 20:33 20:33 WBC 7.09 (4.8-10.8) K/uL RBC 5.23 (4.7-6.1) M/uL Hgb 14.5 (14.0-18.0) g/dL Hct 44.1 (42-52) % MCV 84.3 (80-100) fL MCH 27.7 (25-34) pg MCHC 32.9 (32-36) g/dL RDW Std Deviation 51.1 H (36.4-46.3) fL RDW Coeff of Daria 16.6 H (11.5-14.5) % Plt Count 174 (130-400) K/uL MPV 9.3 (7.4-10.4) fL Immature Gran % (Auto) 0.3 % Neut % (Auto) 70.6 % Lymph % (Auto) 12.6 % [place] % (Auto) 15.1 % Eos % (Auto) 0.8 % Baso % (Auto) 0.6 % Neut # (Auto) 5.01 (1.4-6.5) K/uL Lymph # (Auto) 0.89 L (1.2-3.4) K/uL Linn # (Auto) 1.07 H (0.11-0.59) K/uL Eos # (Auto) 0.06 (0-0.5) K/uL Baso # (Auto) 0.04 (0-0.2) K/uL Immature Gran # (Auto) 0.02 (0.00-0.02) K/uL PT 13.2 H (9.0-12.0) Seconds INR 1.3 H (0.9-1.1) APTT 28.6 (21.0-31.0) Seconds PTT Ratio 1.0 Sodium 131 L (136-145) mmol/L Potassium 3.1 L (3.5-5.1) mmol/L Chloride 83 L (98-107) mmol/L Carbon Dioxide 41 H* (21-32) mmol/L Anion Gap 7.0 (3-11) BUN 56 H (7-18) mg/dl Creatinine 2.41 H (0.6-1.4) mg/dl Est Cr Clr Drug Dosing 25.7 ml/min Est GFR ( Amer) 28.5 Est GFR (Non-Af Amer) 24.6 BUN/Creatinine Ratio 23.3 H (10-20) Glucose 163 H (70-99) mg/dl Calcium 8.9 (8.5-10.1) mg/dl Magnesium 2.4 (1.8-2.4) mg/dl Total Bilirubin 0.9 (0.2-1) mg/dl AST 41 H (15-37) U/L ALT 37 (12-78) U/L Alkaline Phosphatase 84 (45-117) U/L Troponin I 0.157 H* (0-0.045) ng/ml Total Protein 7.2 (6.4-8.2) gm/dl Albumin 3.6 (3.4-5.0) gm/dl Globulin 3.6 (2.5-4.0) gm/dl Albumin/Globulin Ratio 1.0 (0.9-2) Imaging Data Attestation: I personally reviewed and interpreted this imaging study as follows: My Impression: 1 view of the chest was interpreted by me shows a pacemaker in place with no evidence of pneumonia congestion or pneumothorax. Radiologist's Impression: CT the head: No intracranial hemorrhage or apparent acute cortical infarct. Involutional changes with small vessel disease. Cataract surgery. ECG Data Attestation: I personally reviewed and interpreted this ECG as follows: Indication: + weakness Rate (beats per minute): 63 Rhythm: + other (atrial paced rythym) ECG Intervals/blocks: + Left bundle branch block and + Normal QT-c (521) ECG [place]: + Left axis deviation ECG ST segments: no ST depression and no ST elevation Comparison ECG Date: from (02/09/2020) Change: no significant change MDM Narrative Patient was seen and evaluated as above in room B6. Review was performed of nursing notes and vital signs. I did review pertinent previous visits and patient history. After obtaining a thorough history and physical examination the above work up was performed. While in the department, I personally reevaluated the patient several times and each time the patient was found to be resting comfortably. The patient was educated upon management, educated upon todays findings/results, educated upon importance of follow up from today's visit, educated upon symptoms in which to return, had questions answered prior to discharge, verbalized understanding, and was discharged home in good condition. An order was placed for continuous cardiac monitoring. The monitor shows a rate of 61 with paced rhythm. The patient was evaluated during the global COVID-19 pandemic, and that diagnosis was suspected/considered upon their initial presentation. Their evaluation, treatment and testing was consistent with current guidelines for patients who present with complaints or symptoms that may be related to COVID- 19. Impression & Plan Weakness, Elevated troponin Discharge Plan Visit Data *Final* Discharge Date/Time: 02/19/20 23:10 Chief Complaint: Illness Stated Complaint: NOT FEELING WELL ED Provider: Raffi Joseph Discharge Problem: Weakness, Elevated troponin Patient Disposition: Admitted As Inpatient Discharge Instructions Interventions: ED Discharge Assessment Last Done: 02/19/20 23:10
[2020-02-20 06:31] LABS: Basophils # (auto) 0.02 K/uL (0-0.2); Basophils % (auto) 0.4 %; Eosinophils # (auto) 0.05 K/uL (0-0.5); Eosinophils % (auto) 0.9 %; Hematocrit (blood only) 40.1 % (42-52); Hemoglobin 13.5 g/dL (14.0-18.0); Immature Granulocytes # (auto) 0.01 K/uL (0.00-0.02); Immature Granulocytes % (auto) 0.2 %; Lymphocytes # (auto) 0.96 K/uL (1.2-3.4); Lymphocytes % (auto) 17.5 %; Mean Corpuscular Hemoglobin 27.9 pg (25-34); Mean Corpuscular Hgb Conc 33.7 g/dL (32-36); Mean Corpuscular Volume 82.9 fL (80-100); Mean Platelet Volume 9.1 fL (7.4-10.4); Monocytes # (auto) 0.73 K/uL (0.11-0.59); Monocytes % (auto) 13.3 %; Neutrophils # (auto) 3.72 K/uL (1.4-6.5); Neutrophils % (auto) 67.7 %; Platelet Count 135 K/uL (130-400); RDW Coefficient of Variation 16.7 % (11.5-14.5); RDW Standard Deviation 50.8 fL (36.4-46.3); Red Blood Count 4.84 M/uL (4.7-6.1); White Blood Count 5.49 K/uL (4.8-10.8)
[2020-02-20 06:57] LABS: BUN Creatinine Ratio 24.4 (10-20); Calcium 8.3 mg/dl (8.5-10.1); Creatinine Clr Calc Pharmacy 32.2 ml/min; Est GFR (African American) 37.5; Est GFR (Non-African American) 32.4; Magnesium 2.5 mg/dl (1.8-2.4)
[2020-02-20] MEDS ORDERED: POTASSIUM CHLORIDE 20 MEQ/15 ML UDC PO STA (06:59)
[2020-02-20] MEDS ORDERED: TORSEMIDE 10 MG TAB PO SCH (07:00)
--- NOTE | 2020-02-20 07:38 | Electrocardiogram Report ---
Test Reason : Blood Pressure : / mmHG Vent. Rate : 063 BPM Atrial Rate : 063 BPM P-R Int : 256 ms QRS Dur : 162 ms QT Int : 510 ms P-R-T Axes : 092 -64 097 degrees QTc Int : 521 ms Atrial-paced rhythm with prolonged AV conduction Left axis deviation Left bundle branch block Abnormal ECG When compared with ECG of 09-FEB-2020 07:44, No significant change was found Confirmed by Denny Horvath ([id number]) on 02/20/2020 7:38:03 AM Referred By: REFERRED SELF Confirmed By:Denny Horvath
--- NOTE | 2020-02-20 07:46 | CT Scan Report ---
CT SCAN OF THE BRAIN WITHOUT IV CONTRAST CLINICAL HISTORY: Strokelike symptoms. COMPARISON STUDY: CT of the brain dated 02/09/2020. TECHNIQUE: Unenhanced axial CT scan of the brain is performed from the vertex to the skull base. A do se lowering technique was utilized adhering to the principles of ALARA. CT DOSE: 614.27 mGy.cm FINDINGS: Brain parenchyma: There are age-related involutional changes noting mild subcortical and periventric ular microangiopathic change. There is no hemorrhage, mass effect, or evidence of acute territorial i schemia by CT criteria. Mueller-white matter differentiation is preserved. No extra-axial fluid collecti on is seen. Ventricles, sulci, cisterns: Prominent secondary to involutional change. Intracranial vasculature: There is atherosclerotic calcification of the cavernous carotid and vertebr al arteries. Calvarium: Unremarkable. Sinuses and mastoids: The visualized paranasal sinuses are clear. The mastoid air cells are well pneu matized. Orbits: The bony orbits are grossly intact. There is evidence of bilateral ocular lens surgery. IMPRESSION: There is no hemorrhage, mass effect, or evidence of acute territorial ischemia by CT crit sean. ACT 112: Negative or not required by law. Electronically signed by: Ry Johnson M.D. 02/20/2020 7:44 AM
[2020-02-20] MEDS: AMIODARONE 200 MG TAB PO SCH (08:25)
[2020-02-20] MEDS: ASCORBIC ACID 500 MG TAB PO SCH (08:25)
[2020-02-20] MEDS: METHOCARBAMOL 500 MG TABLET PO SCH ×3 (08:26→20:26)
[2020-02-20] MEDS: METOPROLOL SUCC 25MG EXT REL TAB PO SCH ×2 (08:26→20:26)
[2020-02-20] MEDS: PANTOprazole 40 MG TAB PO SCH ×2 (08:26→20:26)
[2020-02-20] MEDS: APIXABAN 2.5 MG TAB PO SCH ×2 (08:26→20:25)
[2020-02-20] MEDS: FERROUS SULFATE 325 MG TAB PO SCH (08:26)
--- NOTE | 2020-02-20 08:33 | XRay Report ---
XR chest 1V portable CLINICAL HISTORY: Weakness FATIGUE, CONFUSION COMPARISON STUDY: 02/04/2020 FINDINGS: The heart remains enlarged. There is a left subclavian pacer/defibrillator. There is a trac e right pleural effusion with associated right basilar atelectatic change. There is no overt failure. There is no lobar consolidation. IMPRESSION: Persistent cardiomegaly and trace right pleural effusion. Right basilar opacities likely atelectatic ACT 112: Negative or not required by law. Electronically signed by: Sriram Payne M.D. 02/20/2020 8:31 AM
--- NOTE | 2020-02-20 09:43 | Hospitalist Progress Note ---
Date of Service February 20, 2020 Assessment & Plan (1) Confusion: -ED labs were drawn on 02/19/2020 -as per ED notes " This is a 79-year-old male who presents emergency department complaining of generalized weakness. The patient reports he feels so weak and he is unsure of what is wrong. He also is complaining of foggy headedness" -02/20/2020 AM: Patient seen and examined in AM. He answers all questions appropriately. He reports that his "confusion" was noted by himself like as if his thoughts were going on circles and this is why he came to the hospital. He reports he that his confusion is not witnessed because he lives by himself. He uses cane at home and generally gets around outside by car. No apparent breathing or pain symptoms. He does not appear currently to be having any problems with his current thinking now. His labs notable for mildly low potassium of 3 on admission and he received some potassium supplements. I advised him that because it is unclear as to the cause of his thought processes that patient should stay for further observation. Patient agreeable for this pl an -02/19/[address]: There is no hemorrhage, mass effect, or evidence of acute territorial ischemia by CT criteria. -UA negative for bacteria -atrial paced on telemetry -PT/OT evaluations, case management consults Hypokalemia -serum potassium 3.1 on ED presentation admission -was given potassium supplements, repeat potassium labs on 02/20/2020 afternoon Hyponatremia -serum sodium 131 on ED presentation electrolyte deficiencies likely from chronic diuretic use chronic systolic and diastolic congestive heart failure history of atrial fibrillation presence of AICD. Hypertension -EF is 32% on echo in May 2019 -had Direct-current cardioversion procedure on 02/09/2020 -02/19/2020 chest X ray Persistent cardiomegaly and trace right pleural effusion. Right basilar opacities likely atelectatic -continue amiodarone and Eliquis and metoprolol -hold torsemide home dose for now History of cardiac amyloidosis -Continue home dose Vyndamax (tafamidis) tafamidis. Chronic kidney disease stage III -Presents with creatinine of 2.4, around baseline. Chronic back pain -Continue his home medication of oxycodone and methocarbamol. Deep venous thrombosis prophylaxis: On [facility] Admission and Anticipated Discharge Date Admission Date: February 19, 2020 Subjective Patient seen and examined in AM. He answers all questions appropriately. He reports that his "confusion" was noted by himself like as if his thoughts were going on circles and this is why he came to the hospital. He reports he that his confusion is not witnessed because he lives by himself. He uses cane at home and generally gets around outside by car. No apparent breathing or pain symptoms. He does not appear currently to be having any problems with his current thinking now. His labs notable for mildly low potassium of 3 on admission and he received some potassium supplements. I advised him that because it is unclear as to the cause of his thought processes that patient should stay for further observation. Patient agreeable for this plan Review of Systems Review of Systems: All systems reviewed & are unremarkable except as noted in Subjective Physical Exam Constitutional: cooperative and comfortable Eyes: PERRL, conjunctivae normal, anicteric sclerae ENMT: external ear and nose normal, oropharynx normal Ears: + hearing impairment Neck: trachea midline, no thyromegaly normal visual inspection Respiratory: normal respiratory effort, lungs clear to auscultation Cardiovascular: Rate/Rhythm: + bradycardic (atrial paced) Gastrointestinal (Abdomen): normal bowel sounds, soft, nontender, no hepatosplenomegaly Musculoskeletal: Head/Neck/Chest: normocephalic and head atraumatic Neurologic: PERRL, EOMI, accommodation nl, no face palsy, no dysarthria CN's II-XI intact bilaterally Psychiatric: A+Ox3, euthymic affect Results & Data Results & Data ([facility]) Vital Signs (Past 12 Hours) Vital Signs Temp Pulse Pulse Pulse Resp BP Pulse Ox 02/20/20 08:20 36.7 C 62 18 96/63 L 98 02/20/20 07:36 60 02/20/20 03:29 36.8 C 60 18 91/57 L 98 02/19/20 23:49 61 22 111/72 100 02/19/20 23:10 63 18 99 02/19/20 22:54 60 18 102/88 96
--- NOTE | 2020-02-20 11:47 | Cardiology Consultation ---
Date of Consultation February 20, 2020 Assessment & Plan (1) Confusion: (2) Cardiac amyloidosis: (3) Weakness: (4) Paroxysmal atrial fibrillation: (5) CKD (chronic kidney disease), stage III: (6) Familial transthyretin amyloid cardiomyopathy: Patient presents this admission with signs and symptoms of mild confusion and difficulty with mentation last evening symptoms appear to resolved. No acute neurologic deficits or evidence of stroke by CT scan. Exam and laboratory studies reflect probable mild dehydration with diuretics recently reduced. He remains in sinus rhythm following recent cardioversion. Patient appropriately anticoagulated with Eliquis. Consider MRI brain if recurrent symptoms develop I agree with supplementation of potassium and electrolyte abnormalities. Would continue to hold diuretics with likely need for reduction on discharge Continue amiodarone and Toprol as ordered History of Present Illness Reason for Consultation: Mild confusion, cardiac amyloidosis Requesting Physician: Dr. Guthrie Attending Physician: Marc Guthrie MD History of Present Illness Patient is a 79-year-old male with complex history recently outlined during admission for synchronized electrical cardioversion 02/09/2020. 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 Has an indwelling pacer defibrillator, [employer] Evera MRI S DR implanted 05/14/2019 Patient presents this admission noting having difficulties with mild confusion and mentation last evening. No acute focal neurologic deficits discerned. Symptoms were clearing on ER presentation. Initial neurologic evaluation including CT scan unrevealing. He denies any chest pains, tachypalpitations, syncope or near syncope. Weight is been gradually trending downward. No signs or symptoms of fluid overload or volume retention with diuretics recently discontinued outpatient visit on 02/16/2020. He denies fevers chills or productive cough. Notes no bleeding difficulties. Appetite fair. Does not wear oxygen at home. No rash or skin lesions. No cough or shortness of breath Allergies Allergy/AdvReac Type Severity Reaction Status Date / Time No Known Allergies Allergy Mild Verified 02/19/20 23:24 Home Medications Home Medications Medication Instructions Recorded Confirmed Type ferrous sulfate [iron] 325 mg PO QAM 09/17/18 02/19/20 History glucosamine-chondroitin [Cidaflex] 1 tab PO QAM 09/17/18 02/19/20 History omeprazole 20 mg PO BID 09/17/18 02/19/20 History metoprolol succinate [Toprol XL] 25 mg PO BID 05/05/19 02/19/20 History methocarbamol 500 mg tablet 500 mg PO TID #90 tab 05/17/19 02/19/20 History ascorbic acid (vitamin C) [Vitamin 1,000 mg PO QAM 06/29/19 02/19/20 History C] Onpattro 25 mg IV .Q3W 09/17/19 02/19/20 History Vyndamax 61 mg PO QAM 09/17/19 02/19/20 History oxycodone [Roxicodone] 5 mg PO Q6H PRN 09/17/19 02/19/20 History amiodarone 200 mg PO DAILY 02/09/20 02/19/20 History apixaban [Eliquis] 2.5 mg PO Q12H #60 tab 02/09/20 02/19/20 Rx torsemide 20 mg PO BID #60 tab 02/09/20 02/19/20 Rx Patient History Medical History Atrial fibrillation onset March 2019) BPH (benign prostatic hyperplasia) Cardiac amyloidosis Chronic back pain Chronic combined systolic and diastolic CHF (congestive heart failure) CKD (chronic kidney disease), stage III Seen in ED on 02/03 for acute dehydration/JOO. Baseline Cr noted to be around 2.0, was elevate at 2.7. Congestive heart failure Degenerative disc disease Diabetes mellitus, type II Diverticular disease GERD (gastroesophageal reflux disease) History of cardioversion 05/08/19 DONE AT [facility] Hx of atrial flutter 2016 [facility] per medical record Hyperlipidemia Hypertension ICD (implantable cardioverter-defibrillator) in place IMPLANTED 05/30 [employer] (DR. BRYANT) On anticoagulant therapy Osteoarthritis Scoliosis Spinal stenosis Surgical History History of appendectomy History of arthroscopy RT SHOULDER History of back surgery LUMBAR SPINE History of cardiac cath SUMMER 2017 - [facility] - REASON? - NO STENTS/ANGIOPLASTY - DR. 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 Required: No Beliefs That Will Affect Care: None marital status: Unknown Current Living Situation: Alone current occupation: Retired Other Information That Helps Us Care for You: No Feels Safe at Home: Yes Safety Concerns: Feels Safe At This Time Smoking Status: Never smoker Tobacco Type: cigarettes ; Second Hand Exposure: N o ; Hx Alcohol Use: No Hx Substance Use: No Review of Systems 2 Review of Systems: All systems reviewed & are unremarkable except as noted in HPI & below Physical Exam Constitutional: + thin; no acute distress Eyes: PERRL, conjunctivae normal, anicteric sclerae ENMT: external ear and nose normal, oropharynx normal Neck: trachea midline, no thyromegaly Respiratory: normal respiratory effort, lungs clear to auscultation Cardiovascular: Rate/Rhythm: regular rate and regular rhythm Heart Sounds: normal S1, normal S2 and + murmur (Grade 2 or 6 systolic murmur, loudest right upper sternal border, no diastolic murmur); no gallop Palpation: normal PMI Vessels: normal carotid upstroke and radial pulses present; no JVD and no carotid bruit Extremities: no edema Gastrointestinal (Abdomen): normal bowel sounds, soft, nontender, no hepatosplenomegaly Musculoskeletal: no cyanosis or clubbing, extremities motor strength 5/5 Skin: no rashes, warm and dry Neurologic: PERRL, EOMI, accommodation nl, no face palsy, no dysarthria Psychiatric: A+Ox3, euthymic affect Results & Data ([facility]) Vital Signs (Past 12 Hours) Vital Signs Temp Pulse Pulse Pulse Resp BP Pulse Ox 02/20/20 11:28 37.3 C 60 16 102/71 93 02/20/20 08:20 36.7 C 62 18 96/63 L 98 02/20/20 07:36 60 02/20/20 03:29 36.8 C 60 18 91/57 L 98 02/19/20 23:49 61 22 111/72 100 Laboratory Results Laboratory Results - last 24 hr 02/19/20 02/19/20 02/19/20 20:33 20:33 20:33 WBC 7.09 RBC 5.23 Hgb 14.5 Hct 44.1 MCV 84.3 MCH 27.7 MCHC 32.9 RDW Std Deviation 51.1 H RDW Coeff of Daria 16.6 H Plt Count 174 MPV 9.3 Immature Gran % (Auto) 0.3 Neut % (Auto) 70.6 Lymph % (Auto) 12.6 Rowan % (Auto) 15.1 Eos % (Auto) 0.8 Baso % (Auto) 0.6 Neut # (Auto) 5.01 Lymph # (Auto) 0.89 L Rowan # (Auto) 1.07 H Eos # (Auto) 0.06 Baso # (Auto) 0.04 Immature Gran # (Auto) 0.02 PT 13.2 H INR 1.3 H APTT 28.6 PTT Ratio 1.0 Sodium 131 L Potassium 3.1 L Chloride 83 L Carbon Dioxide 41 H* Anion Gap 7.0 BUN 56 H Creatinine 2.41 H Est Cr Clr Drug Dosing 25.7 Est GFR ( Amer) 28.5 Est GFR (Non-Af Amer) 24.6 BUN/Creatinine Ratio 23.3 H Glucose 163 H Estimat Average Glucose Estimated Ave Glu mmol/L Estimated Ave Glu mg/dL Hemoglobin A1c Hgb A1c Pathologist Com Calcium 8.9 Magnesium 2.4 Total Bilirubin 0.9 AST 41 H ALT 37 Alkaline Phosphatase 84 Troponin I 0.157 H* Total Protein 7.2 Albumin 3.6 Globulin 3.6 Albumin/Globulin Ratio 1.0 02/20/20 02/20/20 02/20/20 00:16 06:22 06:22 WBC 5.49 RBC 4.84 Hgb 13.5 L Hct 40.1 L MCV 82.9 MCH 27.9 MCHC 33.7 RDW Std Deviation 50.8 H RDW Coeff of Daria 16.7 H Plt Count 135 MPV 9.1 Immature Gran % (Auto) 0.2 Neut % (Auto) 67.7 Lymph % (Auto) 17.5 Rowan % (Auto) 13.3 Eos % (Auto) 0.9 Baso % (Auto) 0.4 Neut # (Auto) 3.72 Lymph # (Auto) 0.96 L Rowan # (Auto) 0.73 H Eos # (Auto) 0.05 Baso # (Auto) 0.02 Immature Gran # (Auto) 0.01 PT INR APTT PTT Ratio Sodium 139 D Potassium 3.0 L Chloride 90 L Carbon Dioxide 44 H* Anion Gap 5.0 BUN 47 H Creatinine 1.92 H D Est Cr Clr Drug Dosing 32.2 Est GFR ( Amer) 37.5 Est GFR (Non-Af Amer) 32.4 BUN/Creatinine Ratio 24.4 H Glucose 166 H Estimat Average Glucose Estimated Ave Glu mmol/L Estimated Ave Glu mg/dL Hemoglobin A1c Hgb A1c Pathologist Com Calcium 8.3 L Magnesium 2.5 H Total Bilirubin AST ALT Alkaline Phosphatase Troponin I 0.174 H* Total Protein Albumin Globulin Albumin/Globulin Ratio 02/20/20 02/20/20 02/20/20 06:22 06:22 06:22 WBC RBC Hgb Hct MCV MCH MCHC RDW Std Deviation RDW Coeff of Daria Plt Count MPV Immature Gran % (Auto) Neut % (Auto) Lymph % (Auto) Rowan % (Auto) Eos % (Auto) Baso % (Auto) Neut # (Auto) Lymph # (Auto) Rowan # (Auto) Eos # (Auto) Baso # (Auto) Immature Gran # (Auto) PT INR APTT PTT Ratio Sodium Potassium Chloride Carbon Dioxide Anion Gap BUN Creatinine Est Cr Clr Drug Dosing Est GFR ( Amer) Est GFR (Non-Af Amer) BUN/Creatinine Ratio Glucose Estimat Average Glucose TNP Estimated Ave Glu mmol/L Pending Estimated Ave Glu mg/dL Pending Hemoglobin A1c TNP Pending Hgb A1c Pathologist Com Pending Calcium Magnesium Total Bilirubin AST ALT Alkaline Phosphatase Troponin I 0.192 H* Total Protein Albumin Globulin Albumin/Globulin Ratio
--- NOTE | 2020-02-20 12:42 | Electrocardiogram Report ---
Test Reason : Blood Pressure : / mmHG Vent. Rate : 060 BPM Atrial Rate : 060 BPM P-R Int : 404 ms QRS Dur : 166 ms QT Int : 558 ms P-R-T Axes : 054 -72 097 degrees QTc Int : 558 ms Atrial-paced rhythm with prolonged AV conduction Left axis deviation Left bundle branch block Abnormal ECG When compared with ECG of 19-FEB-2020 20:21, No significant change was found Confirmed by Nabeel Spivey ([id number]) on 02/20/2020 12:42:42 PM Referred By: REFERRED SELF Confirmed By:Nabeel Spivey
[2020-02-20 12:43] LABS: BUN Creatinine Ratio 23.7 (10-20); Calcium 8.9 mg/dl (8.5-10.1); Creatinine Clr Calc Pharmacy 33.4 ml/min; Est GFR (African American) 39.3; Est GFR (Non-African American) 33.9; Potassium 3.4 mmol/L (3.5-5.1)
[2020-02-20 12:49] LABS: Troponin I 0.153 ng/ml (0-0.045)
[2020-02-20] MEDS: POTASSIUM CHLORIDE / WTR 10 MEQ/100 ML PLCT IV SCH ×2 (13:34→14:40)
[2020-02-21 05:46] LABS: Basophils # (auto) 0.03 K/uL (0-0.2); Basophils % (auto) 0.6 %; Eosinophils # (auto) 0.07 K/uL (0-0.5); Eosinophils % (auto) 1.4 %; Hematocrit (blood only) 42.6 % (42-52); Hemoglobin 14.4 g/dL (14.0-18.0); Immature Granulocytes # (auto) 0.01 K/uL (0.00-0.02); Immature Granulocytes % (auto) 0.2 %; Lymphocytes # (auto) 0.92 K/uL (1.2-3.4); Lymphocytes % (auto) 18.2 %; Mean Corpuscular Hemoglobin 28.2 pg (25-34); Mean Corpuscular Hgb Conc 33.8 g/dL (32-36); Mean Corpuscular Volume 83.5 fL (80-100); Mean Platelet Volume 9.2 fL (7.4-10.4); Monocytes # (auto) 0.72 K/uL (0.11-0.59); Monocytes % (auto) 14.2 %; Neutrophils # (auto) 3.31 K/uL (1.4-6.5); Neutrophils % (auto) 65.4 %; Platelet Count 132 K/uL (130-400); RDW Coefficient of Variation 16.9 % (11.5-14.5); RDW Standard Deviation 51.8 fL (36.4-46.3); White Blood Count 5.06 K/uL (4.8-10.8)
[2020-02-21 06:44] LABS: Albumin Globulin Ratio 0.9 (0.9-2); Albumin Level 3.1 gm/dl (3.4-5.0); BUN Creatinine Ratio 21.6 (10-20); Calcium 8.6 mg/dl (8.5-10.1); Creatinine Clr Calc Pharmacy 40.3 ml/min; Est GFR (African American) 49.4; Est GFR (Non-African American) 42.6; Globulin 3.6 gm/dl (2.5-4.0); Potassium 3.2 mmol/L (3.5-5.1); Total Protein 6.7 gm/dl (6.4-8.2)
[2020-02-21] MEDS ORDERED: ONDANSETRON INJ 2 MG/ML 2 ML VIAL IV PRN (07:17)
[2020-02-21] MEDS ORDERED: ONDANSETRON INJ 2 MG/ML 2 ML VIAL ONE (07:26)
[2020-02-21] MEDS ORDERED: POTASSIUM CHLORIDE 20 MEQ/15 ML UDC PO STA ×3 (07:36→12:47)
[2020-02-21] MEDS: PANTOprazole 40 MG TAB PO SCH ×2 (08:00→20:57)
[2020-02-21] MEDS: METOPROLOL SUCC 25MG EXT REL TAB PO SCH ×2 (08:00→20:56)
[2020-02-21] MEDS: APIXABAN 2.5 MG TAB PO SCH ×2 (08:00→20:57)
[2020-02-21] MEDS: FERROUS SULFATE 325 MG TAB PO SCH (08:01)
[2020-02-21] MEDS: ASCORBIC ACID 500 MG TAB PO SCH (08:01)
[2020-02-21] MEDS: METHOCARBAMOL 500 MG TABLET PO SCH ×3 (08:01→20:57)
[2020-02-21] MEDS: AMIODARONE 200 MG TAB PO SCH (08:01)
--- NOTE | 2020-02-21 08:57 | Hospitalist Progress Note ---
Date of Service February 21, 2020 Assessment & Plan (1) Confusion: from hypokalemia and dehydration -ED labs were drawn on 02/19/2020 -as per ED notes " This is a 79-year-old male who presents emergency department complaining of generalized weakness. The patient reports he feels so weak and he is unsure of what is wrong. He also is complaining of foggy headedness" -02/20/2020 AM: Patient seen and examined in AM. He answers all questions appropriately. He reports that his "confusion" was noted by himself like as if his thoughts were going on circles and this is why he came to the hospital. He reports he that his confusion is not witnessed because he lives by himself. He uses cane at home and generally gets around outside by car. No apparent breathing or pain symptoms. He does not appear currently to be having any problems with his current thinking now. His labs notable for mildly low potassium of 3 on admission and he received some potassium supplements. I advised him that because it is unclear as to the cause of his thought processes that patient should stay for further observation. Patient agreeable for this plan -02/19/[address]: There is no hemorrhage, mass effect, or evidence of acute territorial ischemia by CT criteria. -UA negative for bacteria -atrial paced on telemetry -labs pertinent for hypokalemia and renal labs reflect dehydration from home dose torsemide -PT/OT evaluations, case management consults Hypokalemia -serum potassium 3.1 on ED presentation admission -was given potassium supplements, repeat potassium labs on 02/20/2020 afternoon as 3.4 -serum potassium is 3.2 on 02/21/2020, patient to continue oral and IV potassium Hyponatremia -serum sodium 131 on ED presentation electrolyte deficiencies likely from chronic diuretic use chronic systolic and diastolic congestive heart failure history of atrial fibrillation presence of AICD. Hypertension -EF is 32% on echo in May 2019 -had Direct-current cardioversion procedure on 02/09/2020 -02/19/2020 chest X ray Persistent cardiomegaly and trace right pleural effusion. Right basilar opacities likely atelectatic -continue amiodarone and Eliquis and metoprolol -hold torsemide home dose of 20 mg BID for now, consider resumption as lowered dose when serum potassium improves ACUTE KIDNEY INJURY Chronic kidney disease stage III -Presents with creatinine of 2.4 which was in line with recent labs in end of January 2020 -but with torsemide held in hospital creatinine has been downtrending and currently as 1.58 History of cardiac amyloidosis -Continue home dose Vyndamax (tafamidis) tafamidis. Chronic back pain -Continue his home medication of oxycodone and methocarbamol. Deep venous thrombosis prophylaxis: On Eliquis Admission and Anticipated Discharge Date Admission Date: February 19, 2020 Subjective -serum potassium is 3.2 on 02/21/2020, patient to continue oral and IV potassium. creatinine downtrended to 1.58. patient reports his thinking has been baseline since being in hospital. he would like to have the serum potassium corrected. sometimes he has trouble with the IV potassium repletion because of "burning" sensation during IV potassium infusion no chest pain, no shortness of breath, breathing on room air, no leg edema, no abdominal pain, no vomiting Review of Systems Review of Systems: All systems reviewed & are unremarkable except as noted in Subjective Physical Exam Constitutional: cooperative and comfortable Eyes: PERRL, conjunctivae normal, anicteric sclerae ENMT: external ear and nose normal, oropharynx normal Neck: trachea midline, no thyromegaly normal visual inspection Respiratory: normal respiratory effort, lungs clear to auscultation Cardiovascular: Rate/Rhythm: + bradycardic (atrial paced) Gastrointestinal (Abdomen): normal bowel sounds, soft, nontender, no hepatosplenomegaly Musculoskeletal: Head/Neck/Chest: normocephalic and head atraumatic Neurologic: PERRL, EOMI, accommodation nl, no face palsy, no dysarthria CN's II-XI intact bilaterally Psychiatric: A+Ox3, euthymic affect Results & Data Results & Data ([facility]) Vital Signs (Past 12 Hours) Vital Signs Temp Pulse Resp BP Pulse Ox 02/21/20 07:18 37.0 C 66 20 118/71 98 02/21/20 03:50 36.8 C 63 18 110/66 94 02/20/20 23:12 36.8 C 61 16 109/71 97
[2020-02-21] MEDS ORDERED: SOD PHOSPHATE/SOD BIPHOSPHATE ENEMA 132 ML BTL PR STA (11:21)
--- NOTE | 2020-02-21 12:03 | Cardiology Progress Note ---
Date of Service February 21, 2020 Assessment & Plan (1) Confusion: (2) Cardiac amyloidosis: (3) Weakness: (4) Paroxysmal atrial fibrillation: (5) CKD (chronic kidney disease), stage III: (6) Familial transthyretin amyloid cardiomyopathy: Patient presents this admission with signs and symptoms of mild confusion and difficulty with mentation last evening symptoms appear to resolved. No acute neurologic deficits or evidence of stroke by CT scan. Exam and laboratory studies reflect probable mild dehydration with diuretics recently reduced. He remains in sinus rhythm following recent cardioversion. Patient appropriately anticoagulated with Eliquis. C History consistent likely volume depletion dehydration. Slowly improving Continue to hold diuretics supplement potassium. Patient declining IV potassium during my examination we will give 2 doses of 40 mg oral potassium repeat po tassium level electrolytes this afternoon, renal function improving Subjective Patient seen and examined, chart, medications, telemetry reviewed. Feels slowly improving. No arrhythmias overnight. Still significant hypokalemia this morning. No chest pain or shortness of breath. Confusion issues appear to have abated Physical Exam Constitutional: + thin; no acute distress Eyes: PERRL, conjunctivae normal, anicteric sclerae ENMT: external ear and nose normal, oropharynx normal Neck: trachea midline, no thyromegaly Respiratory: normal respiratory effort, lungs clear to auscultation Cardiovascular: Rate/Rhythm: regular rate and regular rhythm Heart Sounds: normal S1, normal S2 and + murmur (Grade 2 or 6 systolic murmur, loudest right upper sternal border, no diastolic murmur); no gallop Palpation: normal PMI Vessels: normal carotid upstroke and radial pulses present; no JVD and no carotid bruit Extremities: no edema Gastrointestinal (Abdomen): normal bowel sounds, soft, nontender, no hepatosplenomegaly Musculoskeletal: no cyanosis or clubbing, extremities motor strength 5/5 Skin: no rashes, warm and dry Neurologic: PERRL, EOMI, accommodation nl, no face palsy, no dysarthria Psychiatric: A+Ox3, euthymic affect Results & Data Vital Signs (Past 12 Hours) Vital Signs Temp Pulse Pulse Resp BP Pulse Ox 02/21/20 08:00 60 02/21/20 07:18 37.0 C 66 20 118/71 98 02/21/20 03:50 36.8 C 63 18 110/66 94 Laboratory Results Laboratory Results - last 24 hr 02/20/20 02/21/20 02/21/20 11:57 05:27 05:27 WBC 5.06 RBC 5.10 Hgb 14.4 Hct 42.6 MCV 83.5 MCH 28.2 MCHC 33.8 RDW Std Deviation 51.8 H RDW Coeff of Daria 16.9 H Plt Count 132 MPV 9.2 Immature Gran % (Auto) 0.2 Neut % (Auto) 65.4 Lymph % (Auto) 18.2 Snyder % (Auto) 14.2 Eos % (Auto) 1.4 Baso % (Auto) 0.6 Neut # (Auto) 3.31 Lymph # (Auto) 0.92 L Snyder # (Auto) 0.72 H Eos # (Auto) 0.07 Baso # (Auto) 0.03 Immature Gran # (Auto) 0.01 Sodium 136 139 Potassium 3.4 L 3.2 L Chloride 91 L 95 L Carbon Dioxide 41 H* 41 H* Anion Gap 4.0 3.0 BUN 44 H 33 H Creatinine 1.85 H 1.53 H D Est Cr Clr Drug Dosing 33.4 40.3 Est GFR ( Amer) 39.3 49.4 Est GFR (Non-Af Amer) 33.9 42.6 BUN/Creatinine Ratio 23.7 H 21.6 H Glucose 196 H 152 H Calcium 8.9 8.6 Magnesium Total Bilirubin 1.0 AST 26 ALT 29 Alkaline Phosphatase 83 Troponin I 0.153 H* Total Protein 6.7 Albumin 3.1 L Globulin 3.6 Albumin/Globulin Ratio 0.9 02/21/20 07:36 WBC RBC Hgb Hct MCV MCH MCHC RDW Std Deviation RDW Coeff of Daria Plt Count MPV Immature Gran % (Auto) Neut % (Auto) Lymph % (Auto) Snyder % (Auto) Eos % (Auto) Baso % (Auto) Neut # (Auto) Lymph # (Auto) Snyder # (Auto) Eos # (Auto) Baso # (Auto) Immature Gran # (Auto) Sodium Potassium Chloride Carbon Dioxide Anion Gap BUN Creatinine Est Cr Clr Drug Dosing Est GFR ( Amer) Est GFR (Non-Af Amer) BUN/Creatinine Ratio Glucose Calcium Magnesium 2.5 H Total Bilirubin AST ALT Alkaline Phosphatase Troponin I Total Protein Albumin Globulin Albumin/Globulin Ratio
--- NOTE | 2020-02-21 13:06 | Electrocardiogram Report ---
Test Reason : Blood Pressure : / mmHG Vent. Rate : 060 BPM Atrial Rate : 060 BPM P-R Int : 376 ms QRS Dur : 160 ms QT Int : 542 ms P-R-T Axes : 032 -62 093 degrees QTc Int : 542 ms Atrial-paced rhythm with prolonged AV conduction Left axis deviation Left bundle branch block Abnormal ECG When compared with ECG of 20-FEB-2020 06:45, No significant change was found Confirmed by Nabeel Spivey ([id number]) on 02/21/2020 1:06:26 PM Referred By: REFERRED SELF Confirmed By:Nabeel Spivey
[2020-02-21 13:26] LABS: BUN Creatinine Ratio 20.2 (10-20); Calcium 8.9 mg/dl (8.5-10.1); Creatinine Clr Calc Pharmacy 36.4 ml/min; Est GFR (African American) 43.8; Est GFR (Non-African American) 37.8; Potassium 4.1 mmol/L (3.5-5.1)
[2020-02-21] MEDS: POTASSIUM CHLORIDE / WTR 10 MEQ/100 ML PLCT IV SCH ×2 (14:13→14:14)
[2020-02-22 06:53] LABS: BUN Creatinine Ratio 20.1 (10-20); Calcium 8.8 mg/dl (8.5-10.1); Creatinine Clr Calc Pharmacy 42.6 ml/min; Est GFR (African American) 53.2; Est GFR (Non-African American) 45.9; Potassium 3.5 mmol/L (3.5-5.1)
[2020-02-22] MEDS ORDERED: POTASSIUM CHLORIDE 20 MEQ TABCR PO ONE (07:30)
[2020-02-22] MEDS: AMIODARONE 200 MG TAB PO SCH (08:13)
[2020-02-22] MEDS: METHOCARBAMOL 500 MG TABLET PO SCH (08:14)
[2020-02-22] MEDS: FERROUS SULFATE 325 MG TAB PO SCH (08:14)
[2020-02-22] MEDS: PANTOprazole 40 MG TAB PO SCH (08:14)
[2020-02-22] MEDS: ASCORBIC ACID 500 MG TAB PO SCH (08:15)
[2020-02-22] MEDS: METOPROLOL SUCC 25MG EXT REL TAB PO SCH (08:15)
[2020-02-22] MEDS: APIXABAN 2.5 MG TAB PO SCH (08:52)
[2020-02-22] MEDS ORDERED: TORSEMIDE 10 MG TAB PO SCH (09:00)
--- NOTE | 2020-02-22 10:02 | Hospitalist Progress Note ---
Date of Service February 22, 2020 Assessment & Plan (1) Confusion: from hypokalemia and dehydration -ED labs were drawn on 02/19/2020 -as per ED notes " This is a 79-year-old male who presents emergency department complaining of generalized weakness. The patient reports he feels so weak and he is unsure of what is wrong. He also is complaining of foggy headedness" -02/20/2020 AM: Patient seen and examined in AM. He answers all questions appropriately. He reports that his "confusion" was noted by himself like as if his thoughts were going on circles and this is why he came to the hospital. He reports he that his confusion is not witnessed because he lives by himself. He uses cane at home and generally gets around outside by car. No apparent breathing or pain symptoms. He does not appear currently to be having any problems with his current thinking now. His labs notable for mildly low potassium of 3 on admission and he received some potassium supplements. I advised him that because it is unclear as to the cause of his thought processes that patient should stay for further observation. Patient agreeable for this plan -02/19/[address]: There is no hemorrhage, mass effect, or evidence of acute territorial ischemia by CT criteria. -UA negative for bacteria -atrial paced on telemetry -labs pertinent for hypokalemia and renal labs reflect dehydration from home dose torsemide -02/22/2020: serum potassium 3.5 and given additional oral potassium discharge medication sent to [facility], [place] [address] as torsemide 20 mg once a day and potassium 20 meq daily for 15 days. Patient should have serum potassium and renal function labs checked by family doctor or cardiology doctor patient advised to make appointment to see back pain specialist upcoming appointments 02/23/2020 2:00 PM Provider SOPHIA Bean Department Gastroenterology, [facility] 02/26/2020 11:00 AM Provider Gerhard Jimenez MD Department Family Practice [facility] 03/02/2020 11:00 AM Provider Gustabo Llamas DO Department Cardiology, [facility] 03/21/2020 10:00 AM Provider Lab [facility] Department Laboratory, [facility] 03/25/2020 2:00 PM Provider Gerhard Jimenez MD Department Family Practice [facility] 04/15/2020 1:00 PM Provider Chinmay Fang PA-C Department Cardiology, [facility] 05/09/2020 8:00 AM Provider Pamela Bradley [facility], [facility] Hypokalemia -serum potassium 3.1 on ED presentation admission -generally repleted to low normal level by 02/22/2020 -outpatient management as above Hyponatremia -serum sodium 131 on ED presentation -normalized on this admission after IV fluids electrolyte deficiencies likely from chronic diuretic use chronic systolic and diastolic congestive heart failure history of atrial fibrillation presence of AICD. Hypertension -EF is 32% on echo in May 2019 -had Direct-current cardioversion procedure on 02/09/2020 -02/19/2020 chest X ray Persistent cardiomegaly and trace right pleural effusion. Right basilar opacities likely atelectatic -continue amiodarone and Eliquis and metoprolol - torsemide home dose of 20 mg BID held on this admission, resumed as 20 mg daily starting on 02/22/2020 ACUTE KIDNEY INJURY Chronic kidney disease stage III -Presents with creatinine of 2.4 which was in line with recent labs in end of January 2020 -but with torsemide held in hospital creatinine has been downtrending and as 1.44 on 02/22/2020 - torsemide home dose of 20 mg BID held on this admission, resumed as 20 mg daily starting on 02/22/2020 History of cardiac amyloidosis -home dose Vyndamax (tafamidis) tafamidis. Chronic back pain -Continue his home medication of oxycodone and methocarbamol -given lidocaine patch on this admission -outpatient follow up Deep venous thrombosis prophylaxis: On Eliqu Admission and Anticipated Discharge Date Admission Date: February 19, 2020 Subjective baseline mental status. no chest pain. no palpitations. no acute telemetry events. serum potassium levels normalized. no dizziness. no headache. we talked about hospital course and follow ups and outpatient back pain management. patient to be discharged and to go home today Review of Systems Review of Systems: All systems reviewed & are unremarkable except as noted in Subjective Physical Exam Constitutional: cooperative and comfortable Eyes: PERRL, conjunctivae normal, anicteric sclerae ENMT: external ear and nose normal, oropharynx normal Ears: + hearing impairment Neck: trachea midline, no thyromegaly normal visual inspection Respiratory: normal respiratory effort, lungs clear to auscultation Cardiovascular: Rate/Rhythm: + bradycardic (atrial paced) Gastrointestinal (Abdomen): normal bowel sounds, soft, nontender, no hepatosplenomegaly Musculoskeletal: Head/Neck/Chest: normocephalic and head atraumatic Neurologic: PERRL, EOMI, accommodation nl, no face palsy, no dysarthria CN's II-XI intact bilaterally Psychiatric: A+Ox3, euthymic affect Results & Data Results & Data ([facility]) Vital Signs (Past 12 Hours) Vital Signs Temp Pulse Pulse Resp BP Pulse Ox 02/22/20 08:10 36.4 C L 62 18 115/72 95 02/22/20 07:27 60 02/22/20 04:11 36.9 C 60 18 105/63 93 02/21/20 23:01 36.9 C 60 16 105/65 93
[2020-02-22] MEDS ORDERED: LIDOCAINE 5% 1 PATCH TD STA (10:03)
--- NOTE | 2020-02-22 10:05 | Discharge Summary ---
Date of Service February 22, 2020 Admission HPI Per Admitting Provider CHIEF COMPLAINT: Some confusion, weakness. 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 The patient says today he felt like contracted, he was not thinking straight, that is the reason he came to the ER. Right now his confusion is improving. Electrolytes were slightly off and troponin is slightly more elevated than usual, so we are called for admission. Currently resting comfortably, can tell his name, knows his date of , knows today's date and place and county. Speech is clear. He states he has some occasional difficulty swallowing because of dry mouth. He has on and off chronic cough. No loss of sense of smell or taste. No fever, no chills, no chest pain, no shortness of breath, no blurred vision, no runny nose, no sore throat, no nausea, no abdominal pain. Normal bowel and bladder movements. No hematuria or burning micturition, no blood in stools or black stools. He has chronic lower extremity edema which is same as before. The patient has also complained of some tremors on both hands when he hold things. Principal Diagnosis Confusion from hypokalemia and dehydration ACUTE KIDNEY INJURY Chronic kidney disease stage III (acute kidney injury resolved) chronic systolic and diastolic congestive heart failure chronic back pain Discharge Exam Constitutional cooperative and comfortable Eyes PERRL, conjunctivae normal, anicteric sclerae ENMT external ear and nose normal, oropharynx normal Ears: + hearing impairment Neck trachea midline, no thyromegaly normal visual inspection Respiratory normal respiratory effort, lungs clear to auscultation Cardiovascular Rate/Rhythm: + bradycardic (atrial paced) Gastrointestinal (Abdomen) normal bowel sounds, soft, nontender, no hepatosplenomegaly Musculoskeletal Head/Neck/Chest: normocephalic and head atraumatic Neurologic PERRL, EOMI, accommodation nl, no face palsy, no dysarthria CN's II-XI intact bilaterally Psychiatric A+Ox3, euthymic affect Discharge Data Allergies Allergy/AdvReac Type Severity Reaction Status Date / Time No Known Allergies Allergy Mild Verified 02/19/20 23:24 Consultations 02/19/20 21:18 ED Decision to Admit Stat 02/20/20 00:07 Consult Case Management - Discharge Planning Routine 02/20/20 08:00 Consult Cardiology Routine Ordered Studies 02/19/20 20:12 CT head/brain wo con Urgent Hospital Course (1) Confusion: from hypokalemia and dehydration -ED labs were drawn on 02/19/2020 -as per ED notes " This is a 79-year-old male who presents emergency department complaining of generalized weakness. The patient reports he feels so weak and he is unsure of what is wrong. He also is complaining of foggy headedness" -02/20/2020 AM: Patient seen and examined in AM. He answers all questions appropriately. He reports that his "confusion" was noted by himself like as if his thoughts were going on circles and this is why he came to the hospital. He reports he that his confusion is not witnessed because he lives by himself. He uses cane at home and generally gets around outside by car. No apparent breathing or pain symptoms. He does not appear currently to be having any problems with his current thinking now. His labs notable for mildly low potassium of 3 on admission and he received some potassium supplements. I advised him that because it is unclear as to the cause of his thought processes that patient should stay for further observation. Patient agreeable for this plan -02/19/[address]: There is no hemorrhage, mass effect, or evidence of acute territorial ischemia by CT criteria. -UA negative for bacteria -atrial paced on telemetry -labs pertinent for hypokalemia and renal labs reflect dehydration from home dose torsemide -02/22/2020: serum potassium 3.5 and given additional oral potassium discharge medication sent to [facility], [place] [address] as torsemide 20 mg once a day and potassium 20 meq daily for 15 days. Patient should have serum potassium and renal function labs checked by family doctor or cardiology doctor patient advised to make appointment to see back pain specialist upcoming appointments 02/23/2020 2:00 PM Provider SOPHIA Bean Department Gastroenterology, [facility] 02/26/2020 11:00 AM Provider Gerhard Jimenez MD Department [facility] 03/02/2020 11:00 AM Provider Gustabo Llamas DO Department Cardiology, [facility] 03/21/2020 10:00 AM Provider Lab [facility] Department Laboratory, [facility] 03/25/2020 2:00 PM Provider Gerhard Jimenez MD Department [facility] 04/15/2020 1:00 PM Provider Chinmay Fang PA-C Department Cardiology, [facility] 05/09/2020 8:00 AM Provider Pacer Clinic [facility] Department Cardiology, [facility] Hypokalemia -serum potassium 3.1 on ED presentation admission -generally repleted to low normal level by 02/22/2020 -outpatient management as above Hyponatremia -serum sodium 131 on ED presentation -normalized on this admission after IV fluids electrolyte deficiencies likely from chronic diuretic use chronic systolic and diastolic congestive heart failure history of atrial fibrillation presence of AICD. Hypertension -EF is 32% on echo in May 2019 -had Direct-current cardioversion procedure on 02/09/2020 -02/19/2020 chest X ray Persistent cardiomegaly and trace right pleural effusion. 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 Chronic back pain -Continue his home medication of oxycodone and methocarbamol -given lidocaine patch on this admission -outpatient follow up Deep venous thrombosis prophylaxis: On Eliquis Total Time Total Time Spent Total Time Spent (In Minutes): 40 minutes Total Time Includes: Examination of the Patient, Discharge Planning, Medication Reconciliation and Communication With Other Providers Discharge Plan Discharge Items Patient Disposition: Home - Self-Care Reason For Visit: CONFUSION Discharge Diagnosis: Confusion from hypokalemia and dehydration ACUTE KIDNEY INJURY Chronic kidney disease stage III (acute kidney injury resolved) chronic systolic and diastolic congestive heart failure chronic back pain Condition on Discharge: Good Activity: Resume your previous activity Non-emergency contact: Primary Care Provider and Chrome Cleaner Call non-emergency contact if: you have any medication questions Follow-up/Referrals: Gerhard Jimenez MD [Primary Care Provider] - Diet: Carb Consistent or DM2 and Heart Healthy Addtl Attending Provider Instructions: discharge medication sent to [facility], [place] [address] as torsemide 20 mg once a day and potassium 20 meq daily for 15 days. Patient should have serum potassium and renal function labs checked by family doctor or cardiology doctor patient advised to make appointment to see back pain specialist upcoming appointments 02/23/2020 2:00 PM Provider SOPHIA Bean Department Gastroenterology, [facility] 02/26/2020 11:00 AM Provider Gerhard Jimenez MD Department [facility] 03/02/2020 11:00 AM Provider Gustabo Llamas DO Department Cardiology, [facility] 03/21/2020 10:00 AM Provider Lab [facility] Department Laboratory, [facility] 03/25/2020 2:00 PM Provider Gerhard Jimenez MD Department Family [facility] 04/15/2020 1:00 PM Provider Chinmay Fang PA-C Department Cardiology, [facility] 05/09/2020 8:00 AM Provider Pacer Clinic [facility] Department Cardiology, [facility] Add Bank Representative Provider Instructions: When you are ready for Meals on Wheels, call this number to have it set up. . It is a free service. Pending Studies at Discharge: No Stand-Alone Forms: [employer], Smoking Cessation Medications and DC Order Prescriptions: New torsemide 10 mg Tablet 20 mg PO QAM 30 Days Qty: 60 RF: 0 potassium chloride [Klor-Con M20] 20 mEq Tablet,Er Particles/Crystals 20 meq PO QAM 15 Days Qty: 15 RF: 0 Continued methocarbamol 500 mg tablet 500 mg PO TID Qty: 90 RF: 0 metoprolol succinate [Toprol XL] 25 mg Tablet Extended Release 24 Hr 25 mg PO BID RF: 0 ascorbic acid (vitamin C) [Vitamin C] 1,000 mg Tablet 1,000 mg PO QAM RF: 0 amiodarone 200 mg Tablet 200 mg PO DAILY RF: 0 Eliquis 2.5 mg tablet 2.5 mg PO Q12H Qty: 60 RF: 3 ferrous sulfate [iron] 325 mg (65 mg iron) Tablet 325 mg PO QAM RF: 0 glucosamine-chondroitin [Cidaflex] 500-400 mg Tablet 1 tab PO QAM RF: 0 omeprazole 20 mg Tablet,Disintegrat, Delay Rel 20 mg PO BID RF: 0 Vyndamax 61 mg Capsule 61 mg PO QAM RF: 0 oxycodone [Roxicodone] 5 mg tablet 5 mg PO Q6H PRN (Reason: Pain) RF: 0 Onpattro 2 mg/mL Solution 25 mg IV .Q3W RF: 0 Discontinued torsemide 20 mg tablet 20 mg PO BID Qty: 60 RF: 1 Discharge Orders: Discharge Order (Routine); Ordered 02/22/20 Ordered By: Marc Guthrie Admission Data Admit Date/Time: 02/19/20 22:19 Attending Provider: Marc Guthrie Admit Provider: Pardeep Law Primary Care Provider: Gerhard Jimenez Other Providers: Pardeep Law ; Daniel Thompson ; Gustabo Llamas ; Danny Mistry ; Morteza Blackmon ; Gene Prajapati ; Chinmay Fang ; Stella Arbeu ; Naty Mcwilliams ; Garland Hurt
--- NOTE | 2020-02-22 10:27 | Cardiology Progress Note ---
Date of Service February 22, 2020 Assessment & Plan (1) Confusion: (2) Cardiac amyloidosis: (3) Weakness: (4) Paroxysmal atrial fibrillation: (5) CKD (chronic kidney disease), stage III: (6) Familial transthyretin amyloid cardiomyopathy: Patient presents this admission with signs and symptoms of mild confusion and difficulty with mentation last evening symptoms appear to resolved. No acute neurologic deficits or evidence of stroke by CT scan. Exam and laboratory studies reflect probable mild dehydration with diuretics recently reduced. He remains in sinus rhythm following recent cardioversion. Patient appropriately anticoagulated with Eliquis. C History consistent likely volume depletion dehydration. Patient to be discharged today on reduced dose torsemide with close clinical follow-up thank Subjective Patient seen and examined, chart, medications, telemetry reviewed. Feels no further confusion with only complaint chronic back pain issues. No arrhythmias on telemetry. Physical Exam Constitutional: + thin; no acute distress Eyes: PERRL, conjunctivae normal, anicteric sclerae ENMT: external ear and nose normal, oropharynx normal Neck: trachea midline, no thyromegaly Respiratory: normal respiratory effort, lungs clear to auscultation Cardiovascular: Rate/Rhythm: regular rate and regular rhythm Heart Sounds: normal S1, normal S2 and + murmur (Grade 2 or 6 systolic murmur, loudest right upper sternal border, no diastolic murmur); no gallop Palpation: normal PMI Vessels: normal carotid upstroke and radial pulses present; no JVD and no carotid bruit Extremities: no edema Gastrointestinal (Abdomen): normal bowel sounds, soft, nontender, no hepatosplenomegaly Musculoskeletal: no cyanosis or clubbing, extremities motor strength 5/5 Skin: no rashes, warm and dry Neurologic: PERRL, EOMI, accommodation nl, no face palsy, no dysarthria Psychiatric: A+Ox3, euthymic affect Results & Data Vital Signs (Past 12 Hours) Vital Signs Temp Pulse Pulse Resp BP Pulse Ox 02/22/20 08:10 36.4 C L 62 18 115/72 95 02/22/20 07:27 60 02/22/20 04:11 36.9 C 60 18 105/63 93 02/21/20 23:01 36.9 C 60 16 105/65 93 Laboratory Results Laboratory Results - last 24 hr 02/20/20 02/21/20 02/22/20 06:22 12:50 05:58 Sodium 140 139 Potassium 4.1 D 3.5 Chloride 96 L 99 Carbon Dioxide 38 H 36 H Anion Gap 6.0 4.0 BUN 34 H 29 H Creatinine 1.69 H 1.44 H Est Cr Clr Drug Dosing 36.4 42.6 Est GFR ( Amer) 43.8 53.2 Est GFR (Non-Af Amer) 37.8 45.9 BUN/Creatinine Ratio 20.2 H 20.1 H Glucose 197 H 150 H Hgb A1c Pathologist Com Calcium 8.9 8.8
[2020-02-23 02:28] LABS: EAG mmol/L 8.5 (calc)
[2020-02-23] MEDS ORDERED: POTASSIUM CHLORIDE 20 MEQ TABCR PO SCH (09:00)
== END 2020-02-22 12:40 | disposition home or self-care (01) ==
LOC: ED 19:51 → 2E 22:19 → INTOOBSV 22:19 → 2E 23:10

== ENCOUNTER 2020-11-13 23:30 | Inpatient (IN) ==
[2020-11-14] MEDS ORDERED: NovoLIN-R INSULIN PER UNIT CHARGE IV STA (00:07)
--- NOTE | 2020-11-14 00:11 | Emergency Department Note ---
Impression & Plan Acute hyperglycemia, Weakness, Urinary incontinence, Acute dehydration ED Provider Note NAME: Ernestina MARES AGE: 79 SEX: M : 1940 ARRIVES VIA: Walk-In INFORMANT: [Patient] ED PROVIDER(S): [Ry Rucker MD] CHIEF COMPLAINT: Illness HISTORY OF PRESENT ILLNESS: The patient is a 79-year-old male who states he just has not felt well for a few weeks. In the last day, he has had a hard time controlling his urine. He feels thirsty. He is somewhat tired. There rodgers been no fever, no chills, no shortness of breath or cough. No chest pain or abdominal pain. No vomiting or diarrhea. The patient denies any burning with urination. He has not fallen. The patient was told that he was prediabetic, he states he does have a pacemaker defibrillator. No known Covid exposures. He denies any sore throat or stuffy nose. Of note, as per the nursing staff, his bedside blood sugar was greater than 600. REVIEW OF SYSTEMS: See HPI for pertinent positives and negatives. A total of ten systems were reviewed and were otherwise negative. PMHx/PSHx: See Below SOCIAL HISTORY: See Below. PHYSICAL EXAM: GENERAL: Patient is in no acute distress. HEENT: No acute trauma, normocephalic atraumatic, mucous membranes dry, no nasal congestion, no scleral icterus. NECK: No stridor, no adenopathy, no meningismus, trachea is midline. LUNGS: Clear to auscultation bilaterally, no wheeze, no rhonchi, breath sounds equal. HEART: Patient has a 2/6 diastolic murmur, there is a regular rate and rhythm. ABDOMEN: Soft, nontender, bowel sounds positive, no hernias, no peritonitis. EXTREMITIES: No cyanosis or edema, full range of motion of all the joints without pain or difficulty, no signs for acute trauma. NEUROLOGIC: Oriented x 3, no acute motor or sensory deficits, no focal weakness. SKIN: No rash, no jaundice, no diaphoresis. Groin: There is no scrotal erythema or swelling. DIFFERENTIAL DIAGNOSIS: Infection, dehydration, metabolic abnormality, UTI, hypo/hyperglycemia, electrolyte disturbance, anemia, hypoxia, cardiac sources, intracerebral event, toxicologic issues, stroke, TIA, as well as other pathologies. EMERGENCY DEPARTMENT COURSE/PROCEDURES: ECG: Indication was weakness. The ECG shows an atrial pacemaker with a long A-V block. There is a left bundle branch block. The rate is 64. The QTc is 530. There is no ST elevation, no PVCs. Continuous Cardiac Monitoring: An order was placed for continuous cardiac monitoring. The monitor shows a rate of 80 with an atrial pacemaker. MEDICAL DECISION MAKING: There is no leukocytosis or concerning anemia. There is a normal platelet count. There is some evidence for renal insufficiency but this appears baseline. The potassium was normal. Glucose was quite high at over 800. Lactic acid level was not elevated making sepsis less likely. Magnesium was high at 3.1. There were some subtle liver enzyme elevations. The patient appeared to be in a euthyroid state. ECG showed an atrial pacemaker with a long AV block, no obvious ischemia. Cardiac enzyme testing x1 was somewhat elevated however, the patient has a chronically elevated troponin. Urinalysis showed glucose, no infection. Chest film showed some cardiomegaly, I did not see any CHF or pneumonia. Covid and influenza testing were negative. On exam, there were no focal neurologic findings. The patient presents with some fatigue and urinary incontinence. He was quite hyperglycemic. The patient was given IV saline, he was given 2 L. He was given 10 units of IV insulin. The patient is aware of his findings, he does need to be hospitalized. I spoke with case management, the on-call hospitalist was consulted. The patient is currently stable. Past Med/Surg History Medical History Atrial fibrillation "A.Flutter" onset March 2019 BPH (benign prostatic hyperplasia) Cardiac amyloidosis Chronic back pain Chronic combined systolic and diastolic CHF (congestive heart failure) CKD (chronic kidney disease), stage III Seen in ED on 02/03 for acute dehydration/JOO. Baseline Cr noted to be around 2.0, was elevate at 2.7. Congestive heart failure Degenerative disc disease Diabetes mellitus, type II monitoring higher glucose lab testing, possibly related to medication changes in 2019. to have rechecked. following with PCP. Diverticular disease GERD (gastroesophageal reflux disease) History of cardioversion 05/08/19 DONE AT [facility] History of recent fall 07/2020, treated at [facility] Emergency Room. unsure why he fell, may have "passed out?". broken wrist-->casted, no surgical intervention. Hx of atrial flutter 2015 [facility] per medical record Hyperlipidemia Hypertension ICD (implantable cardioverter-defibrillator) in place IMPLANTED 05/30 [employer] (DR. BRYANT) On anticoagulant therapy Osteoarthritis Scoliosis Spinal stenosis Surgical History History of appendectomy History of arthroscopy History of back surgery History of cardiac cath History of cardioversion History of carpal tunnel release History of cataract surgery History of colonoscopy History of esophagogastroduodenoscopy (EGD) History of tooth extraction S/P cardiac pacemaker procedure S/P epidural steroid injection Family History Mother FHx: breast cancer Grandmother (Paternal) FHx: stroke Grandmother (Paternal) FHx: myocardial infarction Father Kidney disease ESRD due to DM. 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 Feels Safe at Home: Yes Assistive Devices: None Allergies Allergies Allergy/AdvReac Type Severity Reaction Status Date / Time No Known Allergies Allergy Mild Verified 11/14/20 01:03 Home Meds Home Medications Medication Instructions Recorded Confirmed ferrous sulfate [iron] 325 mg PO QAM 09/17/18 11/14/20 glucosamine-chondroitin [Cidaflex] 1 tab PO QAM 09/17/18 11/14/20 metoprolol succinate [Toprol XL] 25 mg PO BID 05/05/19 11/14/20 methocarbamol 500 mg tablet 500 mg PO BID #90 tab 05/17/19 11/14/20 Vyndamax 61 mg PO QAM 09/17/19 11/14/20 oxycodone [Roxicodone] 5 mg PO Q6H PRN 09/17/19 11/14/20 amiodarone 200 mg PO QAM 02/09/20 11/14/20 alfuzosin [Uroxatral] 10 mg PO QAM 10/18/20 11/14/20 calcium carbonate-vitamin D3 1 tab PO DAILY 11/14/20 11/14/20 [Calcium 500 + D] cetirizine [Zyrtec] 10 mg PO DAILY PRN 11/14/20 11/14/20 gabapentin 400 mg PO BID 11/14/20 11/14/20 green tea extract 0 mg PO DAILY 11/14/20 11/14/20 metolazone 2.5 mg PO 2XWK 11/14/20 11/14/20 omeprazole 20 mg PO BID 11/14/20 11/14/20 patisiran (lipid complex) 0 mg IV .[id number] 11/14/20 11/14/20 potassium chloride 20 meq PO UD 11/14/20 11/14/20 tafamidis 61 mg PO DAILY 11/14/20 11/14/20 torsemide 40 mg PO QAM 11/14/20 11/14/20 Previous Rx's Medication Instructions Recorded Eliquis 2.5 mg PO Q12H #60 tab 02/09/20 Results & Data (ED) Vital Signs Vital Signs - 24 hr 11/13/20 23:36 11/14/20 00:27 11/14/20 00:30 Temperature 36.4 C L Temperature Source Temporal Artery Scan Pulse Rate 80 60 60 Pulse Rate from SpO2 Sensor 61 60 Respiratory Rate 18 17 18 Respiratory Effort / Characteristics Non-Labored Respiratory Depth Normal Blood Pressure 130/78 109/62 108/67 Blood Pressure Mean 95 77 80 Pulse Oximetry 90 98 94 Oxygen Delivery Method Room Air Room Air Room Air Sepsis Recent Fever Within 48 Hours No Sepsis New/Unexplained Change in Mental Status No Sepsis Action Taken by Nursing No Action Required 11/14/20 00:42 11/14/20 01:06 11/14/20 01:30 Temperature Temperature Source Pulse Rate 63 60 Pulse Rate from SpO2 Sensor 63 60 Respiratory Rate 20 18 Respiratory Effort / Characteristics Respiratory Depth Blood Pressure 125/74 109/61 Blood Pressure Mean 91 77 Pulse Oximetry 99 95 96 Oxygen Delivery Method Room Air Room Air Room Air Sepsis Recent Fever Within 48 Hours Sepsis New/Unexplained Change in Mental Status Sepsis Action Taken by Detention Medications Current Medication List: was personally reviewed by me Laboratory Data Attestation: I reviewed the patient's lab results. Result diagrams: 11/14/20 00:01 11/14/20 00:01 Lab Results 11/13/20 11/14/20 11/14/20 Range/Units 23:54 00:01 00:01 WBC 7.59 (4.8-10.8) K/uL RBC 5.75 (4.7-6.1) M/uL Hgb 16.2 (14.0-18.0) g/dL Hct 48.1 (42-52) % MCV 83.7 (80-100) fL MCH 28.2 (25-34) pg MCHC 33.7 (32-36) g/dL RDW Std Deviation 52.5 H (36.4-46.3) fL RDW Coeff of Daria 17.0 H (11.5-14.5) % Plt Count 151 (130-400) K/uL MPV 10.7 H (7.4-10.4) fL Immature Gran % (Auto) 0.4 % Neut % (Auto) 80.0 % Lymph % (Auto) 11.7 % Chambers % (Auto) 7.4 % Eos % (Auto) 0.1 % Baso % (Auto) 0.4 % Neut # (Auto) 6.07 (1.4-6.5) K/uL Lymph # (Auto) 0.89 L (1.2-3.4) K/uL Chambers # (Auto) 0.56 (0.11-0.59) K/uL Eos # (Auto) 0.01 (0-0.5) K/uL Baso # (Auto) 0.03 (0-0.2) K/uL Immature Gran # (Auto) 0.03 H (0.00-0.02) K/uL Sodium 141 (136-145) mmol/L Potassium 4.0 (3.5-5.1) mmol/L Chloride 96 L (98-107) mmol/L Carbon Dioxide 37 H (21-32) mmol/L Anion Gap 8.0 (3-11) BUN 57 H (7-18) mg/dl Creatinine 2.78 H (0.6-1.4) mg/dl Est Cr Clr Drug Dosing 20.7 ml/min Est GFR ( Amer) 24.0 Est GFR (Non-Af Amer) 20.7 BUN/Creatinine Ratio 20.4 H (10-20) Glucose 802 H* (70-99) mg/dl POC Glucose > 600 H* (70-99) mg/dl Lactate (0.4-2.0) mmol/L Calcium 9.7 (8.5-10.1) mg/dl Phosphorus 3.8 (2.5-4.9) mg/dl Magnesium 3.1 H (1.8-2.4) mg/dl Total Bilirubin 1.1 H (0.2-1) mg/dl AST 17 (15-37) U/L ALT 37 (12-78) U/L Alkaline Phosphatase 119 H (45-117) U/L Troponin I 0.190 H* (0-0.045) ng/ml Total Protein 7.7 (6.4-8.2) gm/dl Albumin 3.7 (3.4-5.0) gm/dl Globulin 4.0 (2.5-4.0) gm/dl Albumin/Globulin Ratio 0.9 (0.9-2) Beta-Hydroxybutyric Acd 5.50 H (0.2-2.81) mg/dl TSH 1.200 (0.300-4.500) uIu/ml Urine Color Urine Appearance (Clear) Urine pH (4.5-7.5) Ur Specific [place] (1.000-1.030) Urine Protein (Negative) Urine Glucose (UA) (Negative) Urine Ketones (Negative) Urine Blood (Negative) Urine Nitrite (Negative) Urine Bilirubin (Negative) Urine Urobilinogen (Negative) Ur Leukocyte Esterase (Negative) COVID-19 Eval Order SARS-CoV-2 (PCR) (Negative) Influenza Type A (PCR) (Neg) Influenza Type B (PCR) (Neg) RSV (RT-PCR) (Neg) 11/14/20 11/14/20 11/14/20 Range/Units 00:25 00:25 00:25 WBC (4.8-10.8) K/uL RBC (4.7-6.1) M/uL Hgb (14.0-18.0) g/dL Hct (42-52) % MCV (80-100) fL MCH (25-34) pg MCHC (32-36) g/dL RDW Std Deviation (36.4-46.3) fL RDW Coeff of Daria (11.5-14.5) % Plt Count (130-400) K/uL MPV (7.4-10.4) fL Immature Gran % (Auto) % Neut % (Auto) % Lymph % (Auto) % Chambers % (Auto) % Eos % (Auto) % Baso % (Auto) % Neut # (Auto) (1.4-6.5) K/uL Lymph # (Auto) (1.2-3.4) K/uL Chambers # (Auto) (0.11-0.59) K/uL Eos # (Auto) (0-0.5) K/uL Baso # (Auto) (0-0.2) K/uL Immature Gran # (Auto) (0.00-0.02) K/uL Sodium (136-145) mmol/L Potassium (3.5-5.1) mmol/L Chloride (98-107) mmol/L Carbon Dioxide (21-32) mmol/L Anion Gap (3-11) BUN (7-18) mg/dl Creatinine (0.6-1.4) mg/dl Est Cr Clr Drug Dosing ml/min Est GFR ( Amer) Est GFR (Non-Af Amer) BUN/Creatinine Ratio (10-20) Glucose (70-99) mg/dl POC Glucose (70-99) mg/dl Lactate 1.8 (0.4-2.0) mmol/L Calcium (8.5-10.1) mg/dl Phosphorus (2.5-4.9) mg/dl Magnesium (1.8-2.4) mg/dl Total Bilirubin (0.2-1) mg/dl AST (15-37) U/L ALT (12-78) U/L Alkaline Phosphatase (45-117) U/L Troponin I (0-0.045) ng/ml Total Protein (6.4-8.2) gm/dl Albumin (3.4-5.0) gm/dl Globulin (2.5-4.0) gm/dl Albumin/Globulin Ratio (0.9-2) Beta-Hydroxybutyric Acd (0.2-2.81) mg/dl TSH (0.300-4.500) uIu/ml Urine Color Urine Appearance (Clear) Urine pH (4.5-7.5) Ur Specific [place] (1.000-1.030) Urine Protein (Negative) Urine Glucose (UA) (Negative) Urine Ketones (Negative) Urine Blood (Negative) Urine Nitrite (Negative) Urine Bilirubin (Negative) Urine Urobilinogen (Negative) Ur Leukocyte Esterase (Negative) COVID-19 Eval Order CovFluRsv at [facility] SARS-CoV-2 (PCR) NEGATIVE (Negative) Influenza Type A (PCR) Negative (Neg) Influenza Type B (PCR) Negative (Neg) RSV (RT-PCR) Negative (Neg) 11/14/20 11/14/20 Range/Units 01:05 01:09 WBC (4.8-10.8) K/uL RBC (4.7-6.1) M/uL Hgb (14.0-18.0) g/dL Hct (42-52) % MCV (80-100) fL MCH (25-34) pg MCHC (32-36) g/dL RDW Std Deviation (36.4-46.3) fL RDW Coeff of Daria (11.5-14.5) % Plt Count (130-400) K/uL MPV (7.4-10.4) fL Immature Gran % (Auto) % Neut % (Auto) % Lymph % (Auto) % Chambers % (Auto) % Eos % (Auto) % Baso % (Auto) % Neut # (Auto) (1.4-6.5) K/uL Lymph # (Auto) (1.2-3.4) K/uL Chambers # (Auto) (0.11-0.59) K/uL Eos # (Auto) (0-0.5) K/uL Baso # (Auto) (0-0.2) K/uL Immature Gran # (Auto) (0.00-0.02) K/uL Sodium (136-145) mmol/L Potassium (3.5-5.1) mmol/L Chloride (98-107) mmol/L Carbon Dioxide (21-32) mmol/L Anion Gap (3-11) BUN (7-18) mg/dl Creatinine (0.6-1.4) mg/dl Est Cr Clr Drug Dosing ml/min Est GFR ( Amer) Est GFR (Non-Af Amer) BUN/Creatinine Ratio (10-20) Glucose (70-99) mg/dl POC Glucose > 600 H* (70-99) mg/dl Lactate (0.4-2.0) mmol/L Calcium (8.5-10.1) mg/dl Phosphorus (2.5-4.9) mg/dl Magnesium (1.8-2.4) mg/dl Total Bilirubin (0.2-1) mg/dl AST (15-37) U/L ALT (12-78) U/L Alkaline Phosphatase (45-117) U/L Troponin I (0-0.045) ng/ml Total Protein (6.4-8.2) gm/dl Albumin (3.4-5.0) gm/dl Globulin (2.5-4.0) gm/dl Albumin/Globulin Ratio (0.9-2) Beta-Hydroxybutyric Acd (0.2-2.81) mg/dl TSH (0.300-4.500) uIu/ml Urine Color Yellow Urine Appearance Clear (Clear) Urine pH 6.5 (4.5-7.5) Ur Specific [place] 1.024 (1.000-1.030) Urine Protein Negative (Negative) Urine Glucose (UA) 3+ H (Negative) Urine Ketones Negative (Negative) Urine Blood Negative (Negative) Urine Nitrite Negative (Negative) Urine Bilirubin Negative (Negative) Urine Urobilinogen Negative (Negative) Ur Leukocyte Esterase Negative (Negative) COVID-19 Eval Order SARS-CoV-2 (PCR) (Negative) Influenza Type A (PCR) (Neg) Influenza Type B (PCR) (Neg) RSV (RT-PCR) (Neg) Administered Medications Sodium Chloride (Nss 1000ml) 1,000 mls @ 999 mls/hr IV .Q1H1M ONE Stop: 11/14/20 02:12 Last Admin: 11/14/20 01:53 Dose: 999 mls/hr Documented by: [id number] Discontinued Medications Sodium Chloride (Nss 1000ml) 1,000 mls @ 999 mls/hr IV .Q1H1M ASHLEE Stop: 11/14/20 01:15 Last Infusion: 11/14/20 01:53 Dose: 0 mls/hr Documented by: [id number] Admin: 11/14/20 00:41 Dose: 999 mls/hr Documented by: [id number] Insulin Human Regular (Novolin-R Insulin Per Unit Charge) 10 units IV NOW STA Stop: 11/14/20 00:08 Last Admin: 11/14/20 00:40 Dose: 10 units Documented by: [id number] Cosigned by: [id number] Imaging Data Attestation: I personally reviewed and interpreted this imaging study as follows: My Impression: Chest x-ray: There is cardiomegaly. A pacer/defibrillator is present. There was no CHF or pneumonia. The lungs appeared clear. The film looks similar to previous films. Discharge Plan Visit Data Chief Complaint: Illness Stated Complaint: FEEL TERRIBLE ED Provider: Ry Rucker Discharge Problem: Acute hyperglycemia, Weakness, Urinary incontinence, Acute dehydration Patient Disposition: Admitted As Inpatient Condition: Fair Forms Stand Alone Forms: My [facility] [address] Prescriptions Prescriptions: No Action methocarbamol 500 mg tablet 500 mg PO BID Qty: 90 RF: 0 metoprolol succinate [Toprol XL] 25 mg Tablet Extended Release 24 Hr 25 mg PO BID RF: 0 amiodarone 200 mg Tablet 200 mg PO QAM RF: 0 Eliquis 2.5 mg tablet 2.5 mg PO Q12H Qty: 60 RF: 3 ferrous sulfate [iron] 325 mg (65 mg iron) Tablet 325 mg PO QAM RF: 0 glucosamine-chondroitin [Cidaflex] 500-400 mg Tablet 1 tab PO QAM RF: 0 Vyndamax 61 mg Capsule 61 mg PO QAM RF: 0 oxycodone [Roxicodone] 5 mg tablet 5 mg PO Q6H PRN (Reason: Pain) RF: 0 metolazone 2.5 mg tablet 2.5 mg PO 2XWK RF: 0 torsemide 20 mg tablet 40 mg PO QAM RF: 0 cetirizine [Zyrtec] 10 mg Tablet 10 mg PO DAILY PRN (Reason: ON DAYS PRIOR TO PATISIRAN) RF: 0 gabapentin 400 mg capsule 400 mg PO BID RF: 0 omeprazole 20 mg Capsule,Delayed Release(Dr/Ec) 20 mg PO BID RF: 0 potassium chloride 10 mEq tablet,ER particles/crystals 20 meq PO UD RF: 0 green tea extract 375 mg Capsule 0 mg PO DAILY RF: 0 calcium carbonate-vitamin D3 [Calcium 500 + D] 500 mg(1,250mg) -200 unit Tablet 1 tab PO DAILY RF: 0 patisiran (lipid complex) 2 mg/mL Solution 0 mg IV .[id number] RF: 0 tafamidis 61 mg Capsule 61 mg PO DAILY RF: 0 alfuzosin [Uroxatral] 10 mg tablet extended release 24 hr 10 mg PO QAM RF: 0 Referrals Referrals: Gerhard Jimenez MD [Primary Care Provider] - Discharge Problem: Urinary incontinence Qualifiers: Urinary Incontinence type: unspecified incontinence Qualified Code(s): R32 - Unspecified urinary incontinence
[2020-11-14] MEDS ORDERED: SODIUM CHLORIDE 0.9% 1000ML 1,000 ML IV SCH (00:15)
[2020-11-14 00:17] LABS: Basophils # (auto) 0.03 K/uL (0-0.2); Basophils % (auto) 0.4 %; Eosinophils # (auto) 0.01 K/uL (0-0.5); Eosinophils % (auto) 0.1 %; Hematocrit (blood only) 48.1 % (42-52); Hemoglobin 16.2 g/dL (14.0-18.0); Immature Granulocytes # (auto) 0.03 K/uL (0.00-0.02); Immature Granulocytes % (auto) 0.4 %; Lymphocytes # (auto) 0.89 K/uL (1.2-3.4); Lymphocytes % (auto) 11.7 %; Mean Corpuscular Hemoglobin 28.2 pg (25-34); Mean Corpuscular Hgb Conc 33.7 g/dL (32-36); Mean Corpuscular Volume 83.7 fL (80-100); Mean Platelet Volume 10.7 fL (7.4-10.4); Monocytes # (auto) 0.56 K/uL (0.11-0.59); Monocytes % (auto) 7.4 %; Neutrophils # (auto) 6.07 K/uL (1.4-6.5); Platelet Count 151 K/uL (130-400); RDW Standard Deviation 52.5 fL (36.4-46.3); Red Blood Count 5.75 M/uL (4.7-6.1); White Blood Count 7.59 K/uL (4.8-10.8)
[2020-11-14 01:06] LABS: Albumin Globulin Ratio 0.9 (0.9-2); Albumin Level 3.7 gm/dl (3.4-5.0); BUN Creatinine Ratio 20.4 (10-20); Beta-Hydroxybutyrate 5.5 mg/dl (0.2-2.81); Bilirubin,Total 1.1 mg/dl (0.2-1); Calcium 9.7 mg/dl (8.5-10.1); Creatinine Clr Calc Pharmacy 20.7 ml/min; Est GFR (Non-African American) 20.7; Magnesium 3.1 mg/dl (1.8-2.4); Phosphorus 3.8 mg/dl (2.5-4.9); Thyroid Stimulating Hormone 1.2 uIu/ml (0.300-4.500); Total Protein 7.7 gm/dl (6.4-8.2); Troponin I 0.19 ng/ml (0-0.045)
[2020-11-14] MEDS ORDERED: SODIUM CHLORIDE 0.9% 1000ML 1,000 ML IV ONE (01:12)
[2020-11-14 01:18] LABS: Appearance Urine Clear (Clear); Bilirubin Urine Negative (Negative); Blood Urine Negative (Negative); Color Urine Yellow; Glucose Urine UA 3+ (Negative); Ketones Urine Negative (Negative); Leukocyte Esterase Urine Negative (Negative); Nitrite Urine Negative (Negative); Protein Urine Negative (Negative); Specific Gravity Urine 1.024 (1.000-1.030); Urobilinogen Urine Negative (Negative); pH Urine 6.5 (4.5-7.5)
[2020-11-14 01:21] LABS: Influenza A virus by PCR Negative (Neg); Influenza B virus by PCR Negative (Neg); RSV by PCR Negative (Neg); SARS CoV2 RNA(COVID-19) InHosp NEGATIVE (Negative)
[2020-11-14] MEDS ORDERED: CETIRIZINE HCL 10 MG TABLET PO PRN (04:04)
[2020-11-14] MEDS ORDERED: MODERATE STRESS LEVEL ONE (04:04)
[2020-11-14] MEDS ORDERED: ACETAMINOPHEN 325 MG TAB PO PRN (04:04)
[2020-11-14] MEDS ORDERED: DC ALL PREVIOUSLY ORDERED DIABETES MEDS ONE (04:04)
[2020-11-14] MEDS ORDERED: SODIUM CHLORIDE 0.45 % 1,000 ML IV SCH (04:04)
[2020-11-14] MEDS ORDERED: INSULIN REGULAR 250 UNITS in SODIUM CHLORIDE 0.9% 247.5 ML IV SCH (04:04)
[2020-11-14] MEDS ORDERED: NITROGLYCERIN SL 0.4 MG/TAB TAB SL PRN (04:04)
[2020-11-14] MEDS ORDERED: ONDANSETRON INJ 2 MG/ML 2 ML VIAL IV PRN (04:04)
[2020-11-14] MEDS ORDERED: POLYETHYLENE (MIRALAX) 17 GM PACK PO PRN (04:04)
[2020-11-14] MEDS ORDERED: INSULIN PROTOCOL GOAL RANGE ONE (04:04)
[2020-11-14] MEDS ORDERED: PHARMACY GLYCEMIC MGMT CONSULT PRN (04:19)
[2020-11-14] MEDS ORDERED: GLUCOSE 10 TABS/TUBE PO PRN (04:30)
[2020-11-14] MEDS ORDERED: GLUCAGON FOR INJ 1 MG VIAL SQ PRN (04:30)
[2020-11-14] MEDS ORDERED: CARBOHYDRATES FOR HYPOGLYCEMIA PO PRN (04:30)
[2020-11-14] MEDS ORDERED: GLUCOSE 40% GEL 15 GM TUBE PO PRN (04:30)
[2020-11-14] MEDS ORDERED: DEXTROSE 50% 50 ML SYRINGE IV PRN (04:30)
--- NOTE | 2020-11-14 04:43 | History and Physical Report ---
DATE OF ADMISSION: 11/14/2020 CHIEF COMPLAINT: Weakness and illness. 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 The patient lives alone, ambulates with a walker, comes because of weakness in the last 1 week. He says his legs are very weak. He is not able to ambulate. He is having dry mouth and also having increased micturition and he came to the ER and found to have blood sugars in the 800s. The patient has history of diabetes. He said he took metformin for 4 years, but it was stopped because his diabetes came under control. Otherwise, denies any other complaints. Denies any nausea, vomiting. No abdominal pain, somewhat constipated. Denied any blood in stools. Denies any hematuria or burning micturition. Denies any fever, no cough, no chest pain, no shortness of breath, no headache, no blurred vision, no earache, no runny nose, no sore throat. He says his appetite is okay. No dysphagia. Currently, hemodynamics are stable. SARS-CoV-2 PCR is negative. The patient said he did not receive his COVID shot yet. ALLERGIES: No known drug allergies. PAST MEDICAL HISTORY: As mentioned above. PAST SURGICAL HISTORY: Carpal tunnel surgery, EGD, ICD placement, lumbar spine fusion surgery, appendectomy, repair of right ruptured rotator cuff. MEDICATIONS: The patient is on amiodarone 200 mg p.o. daily, calcium carbonate plus vitamin D 1 tablet daily, Zyrtec 10 mg p.o. daily p.r.n., Eliquis 2.5 mg p.o. b.i.d., ferrous sulfate 325 mg p.o. a.m., gabapentin 400 mg p.o. b.i.d., glucosamine/chondroitin 1 tablet p.o. a.m., methocarbamol 500 mg p.o. b.i.d., metolazone 2.5 mg p.o. 2 times a week, Toprol-XL 25 mg p.o. b.i.d., omeprazole 20 mg p.o. b.i.d., oxycodone 5 mg p.o. q. 6 hours p.r.n. patisiran IV q. 3 weeks, potassium chloride 20 mEq as directed, tafamidis 61 mg p.o. daily, torsemide 40 mg p.o. a.m. FAMILY HISTORY: Significant for brother has diabetes. Father has diabetes, heart disorder, dialysis. Sister has diabetes, TIAs. SOCIAL HISTORY: , lives alone. Quit smoking in 1982, smoked 1 pack a day for 15 years. Alcohol rarely. No drug use. REVIEW OF SYMPTOMS: As per HPI. Rest of review of systems negative. PHYSICAL EXAMINATION: GENERAL: The patient is of moderate build, not in acute distress. VITAL SIGNS: Temperature 36.4, pulse 60, respiratory rate 18, blood pressure 109/61, oxygen 96% on room air. HEENT: Pupils equal, round, reactive to light. Oral mucosa dry. NECK: No JVD, no neck masses. CARDIOVASCULAR: S1, S2, regular rate and rhythm, no murmur, no gallop. RESPIRATORY SYSTEM: Normal AP diameter. No accessory muscle use. No wheezing, no crackles. ABDOMEN: Soft, bowel sounds present, nontender. No distention. CENTRAL NERVOUS SYSTEM: Cranial nerves II-XII grossly intact. Nonfocal. EXTREMITIES: No edema, no erythema. LABORATORY DATA: WBC 7.5, hemoglobin 16.2, hematocrit 48.1, platelets 151. Sodium 141, potassium 4, chloride 96, bicarbonate 37, BUN 57, creatinine 2.7, serum glucose 802. Lactate 1.8, calcium 9.7, phosphorus 3.8, magnesium 3.1, total bilirubin 1.1, AST 17, ALT 37, alkaline phosphatase 119. Troponin I 0.19. Beta hydroxybutyric acid 5.5. TSH 1.2. Urinalysis, +3 glucose. SARS-CoV-2 PCR negative. Influenza A and B PCR negative, RSV PCR negative. IMAGING: Chest x-ray, no acute findings seen. ASSESSMENT AND PLAN: This is a 79-year-old male who presents with weakness and found to have hyperglycemia. 1. Hyperglycemia, comes with symptoms of weakness, increased micturition, dry mouth and poor ambulatory status. Could be secondary to ongoing hyperglycemia. The patient is not in DKA. Received a liter of fluids in the ER. We will continue with insulin drip protocol. Gentle fluids with half normal saline with 20kcl@ 75 mL per hour. Consult glycemic pharmacist to follow HbA1c levels. Dietitian consult. Closely monitor the blood sugars. Monitor in med tele.Follow BMP while on iv insulin. 2. Acute kidney injury on chronic kidney disease stage III, baseline creatinine around 2, currently creatinine 2.7. Avoid nephrotoxic agents. Getting fluids. Monitor labs in a.m. If kidney function worsens, we will consult nephrology. Follows with nephrology. We are holding the diuretics for now 3.history of combined chronic systolic and diastolic congestive heart failure Recent echo August 2020 showed EF of 25 to 29% and grade III diastolic dysfunction. We will continue his home medications of Toprol-XL and amiodarone. The patient is status post AICD. Continue his Eliquis. Holding the diuretics, torsemide. The patient is currently dehydrated. We will monitor for any volume overload. Holding his potassium supplements as we are holding his diuretics. 3. History of cardiac amyloidosis, currently on patisiran infusion and Vyndamax, 4.history of non-rheumatic aortic valve stenosis, history of bicuspid aortic valve, mild aortic valve stenosis, follow with cardiology. 5. History of paroxysmal atrial fibrillation on Eliquis, rate control with amiodarone and Toprol-XL. We will monitor. 6. Gastroesophageal reflux disease. Continue Protonix. 7. Chronic pain syndrome. Continue his home pain medications. 8. Deep venous thrombosis prophylaxis, on Eliquis. DISPOSITION: Closely monitor in med tele. PT and OT prior to discharge. Social service discharge planning. Expect to discharge home and follow with his family doctor and cardiology. Level 1 full code. MTDD
[2020-11-14 05:11] LABS: Basophils # (auto) 0.02 K/uL (0-0.2); Basophils % (auto) 0.3 %; Eosinophils # (auto) 0.01 K/uL (0-0.5); Eosinophils % (auto) 0.1 %; Hematocrit (blood only) 41.7 % (42-52); Hemoglobin 14.3 g/dL (14.0-18.0); Immature Granulocytes # (auto) 0.02 K/uL (0.00-0.02); Immature Granulocytes % (auto) 0.3 %; Lymphocytes # (auto) 0.87 K/uL (1.2-3.4); Lymphocytes % (auto) 11.6 %; Mean Corpuscular Hemoglobin 28.7 pg (25-34); Mean Corpuscular Hgb Conc 34.3 g/dL (32-36); Mean Corpuscular Volume 83.6 fL (80-100); Mean Platelet Volume 10.8 fL (7.4-10.4); Monocytes % (auto) 9.3 %; Neutrophils # (auto) 5.88 K/uL (1.4-6.5); Neutrophils % (auto) 78.4 %; Platelet Count 134 K/uL (130-400); RDW Coefficient of Variation 16.8 % (11.5-14.5); RDW Standard Deviation 52.1 fL (36.4-46.3); Red Blood Count 4.99 M/uL (4.7-6.1)
[2020-11-14 05:41] LABS: BUN Creatinine Ratio 21.3 (10-20); Calcium 8.6 mg/dl (8.5-10.1); Creatinine Clr Calc Pharmacy 25.4 ml/min; Est GFR (African American) 29.6; Est GFR (Non-African American) 25.5; Magnesium 2.9 mg/dl (1.8-2.4); Potassium 3.1 mmol/L (3.5-5.1)
[2020-11-14] MEDS ORDERED: POTASSIUM CHLORIDE CRTAB 20 MEQ TABCR PO STA (06:00)
[2020-11-14] MEDS ORDERED: D5W AND 1/2NSS + 20MEQ KCL 20 MEQ/1,000 ML BAG IV SCH (06:15)
--- NOTE | 2020-11-14 06:58 | XRay Report ---
XR chest 1V portable HISTORY: 79 years-old Male weakness acute weakness COMPARISON: Chest radiograph 07/21/2020 TECHNIQUE: Portable AP view of the chest FINDINGS: Cardiac silhouette is enlarged, unchanged. Left subclavian pacer/AICD. Calcified plaque of the thorac ic aorta. No pneumothorax, pleural effusion, airspace consolidation or overt pulmonary edema. Mid tho racic dextroscoliosis. Bones of the chest appear grossly intact. IMPRESSION: Cardiomegaly without acute process. ACT 112: Negative or not required by law. The above report was generated using voice recognition software. It may contain grammatical, syntax o r spelling errors. Electronically signed by: Leland Phelps M.D. 11/14/2020 6:56 AM
[2020-11-14] MEDS: CALCIUM 600MG + VIT D 400 IU TAB PO SCH (07:32)
[2020-11-14] MEDS: AMIODARONE 200 MG TAB PO SCH (07:32)
[2020-11-14] MEDS: FERROUS SULFATE 325 MG TAB PO SCH (07:33)
[2020-11-14] MEDS: GLUCOSAMINE SULFATE 500 MG CAP PO SCH (07:33)
[2020-11-14] MEDS: PANTOprazole 40 MG TAB PO SCH ×2 (07:33→20:41)
[2020-11-14] MEDS: APIXABAN 2.5 MG TAB PO SCH ×2 (07:33→20:42)
[2020-11-14] MEDS: GABAPENTIN 400 MG CAP PO SCH ×2 (07:33→20:43)
[2020-11-14] MEDS: METHOCARBAMOL 500 MG TABLET PO SCH ×2 (07:34→20:41)
[2020-11-14] MEDS: METOPROLOL SUCC 25MG EXT REL TAB PO SCH ×2 (07:34→20:41)
[2020-11-14] MEDS: INSULIN ASPART 100 UNITS/ML 3 ML PEN SC SCH ×4 (07:57→21:08)
--- NOTE | 2020-11-14 09:23 | Electrocardiogram Report ---
Test Reason : Blood Pressure : / mmHG Vent. Rate : 064 BPM Atrial Rate : 064 BPM P-R Int : 330 ms QRS Dur : 150 ms QT Int : 514 ms P-R-T Axes : 074 -65 100 degrees QTc Int : 530 ms Atrial-paced rhythm with prolonged AV conduction Left axis deviation Left bundle branch block Abnormal ECG When compared with ECG of 21-JUL-2020 10:04, No significant change was found Confirmed by Gerhard Spann ([id number]) on 11/14/2020 9:23:24 AM Referred By: REFERRED SELF Confirmed By:Gerhard Spann
--- NOTE | 2020-11-14 09:33 | Electrocardiogram Report ---
Test Reason : Blood Pressure : / mmHG Vent. Rate : 060 BPM Atrial Rate : 060 BPM P-R Int : 340 ms QRS Dur : 156 ms QT Int : 532 ms P-R-T Axes : 070 -64 103 degrees QTc Int : 532 ms Atrial-paced rhythm with prolonged AV conduction Left axis deviation Left bundle branch block Abnormal ECG When compared with ECG of 13-NOV-2020 23:52, No significant change was found Confirmed by Gerhard Spann ([id number]) on 11/14/2020 9:32:41 AM Referred By: REFERRED SELF Confirmed By:Gerhard Spann
[2020-11-14] MEDS ORDERED: INSULIN GLARGINE SOLOSTAR 100 UNITS/ML 3 ML PEN SC ONE ×2 (10:15→18:00)
[2020-11-14] MEDS ORDERED: SODIUM CHLOR 0.45% + 20MEQ KCL 20 MEQ/1,000 ML BAG IV SCH (13:15)
--- NOTE | 2020-11-14 14:30 | Pharmacy Report ---
Pharmacy Glycemic Short Note 2 - Date of Service November 14, 2020 - Glycemic Short BSG Results (Last 24 hours): 11/13/20 11/14/20 11/14/20 23:54 00:01 01:09 Glucose 802 H* POC Glucose > 600 H* > 600 H* 11/14/20 11/14/20 11/14/20 03:57 04:53 05:51 Glucose 419 H* POC Glucose 440 H* 412 H* 11/14/20 11/14/20 11/14/20 06:53 07:48 08:50 Glucose POC Glucose 392 H* 392 H* 345 H* 11/14/20 11/14/20 11/14/20 09:53 10:46 12:48 Glucose POC Glucose 337 H* 275 H 303 H* 11/14/20 13:50 Glucose POC Glucose 191 H OUTPATIENT ANTIDIABETIC REGIMEN: * none * HbA1c: 7.0% (02/20/20) -- unable to obtain current A1c d/t increased Hemoglobin F, which makes it difficult to interpret HbA1c (see pathologist notes) ASSESSMENT: * Mr Givens was admitted overnight with severe hyperglycemia (BSG >800mg/dL). * Pt initiated on IV insulin infusion on admission. * Transition to SQ insulin was started this morning, as labs appropriate and do not indicate DKA. * IVF with dextrose have been held and BSGs have begun to improve after the first dose of Lantus was given. * Will continue to follow and adjust regimen as patient completes transition to SQ insulin. PLAN FOR INPATIENT GLYCEMIC CONTROL: * Hold outpatient oral diabetes medications * Basal insulin * Lantus 20 units SQ x1 dose this morning. * Lantus 0-15 units SQ this evening, based on BSGs * Expect that insulin gtt may be held after second dose of Lantus is given. * Bolus insulin * NovoLog per scale ACHS or Q6hrs while NPO * Goal Range: Low 120 mg/dL - High 160 mg/dL * Correction Factor: 30 mg/dL/unit * Nutritional / Prandial insulin per carb ratio of 1 unit per 10 grams CHO consumed PLAN FOR DISCHARGE: * pending
[2020-11-14 16:27] LABS: Calcium 8.8 mg/dl (8.5-10.1); Creatinine Clr Calc Pharmacy 28.6 ml/min; Est GFR (African American) 34.1; Est GFR (Non-African American) 29.4; Potassium 3.7 mmol/L (3.5-5.1)
--- NOTE | 2020-11-14 16:38 | Cardiology Consultation ---
Date of Consultation November 14, 2020 Assessment & Plan (1) Acute hyperglycemia: (2) Acute dehydration: Agree with holding his diuretic therapy. Administering gentle fluids as well as already been performed with improvement in his glucose. (3) Familial transthyretin amyloid cardiomyopathy: Complaints ofI am concerned with regards to the patient's difficulty "controlling his hands and legs ". My initial impression is that this could be a progression of his amyloid disease, with previously diagnosed amyloid peripheral neuropathy in 2019. He has had a slow but progressive decline in his overall health over the last year cardiac and noncardiac standpoint. He remains on treatment including oral tafamidis and potassium by IV infusion. (4) Atrial flutter: Amiodarone, metoprolol. Continue Eliquis 2.5 mg twice daily dose adjusted for renal insufficiency, age. History of Present Illness Attending Physician: Sav Norwood MD History of Present Illness Mr Givens is a 79 year old black male seen in cardiology consultation per the request of Dr Law for the evaluation of generalized weakness. 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 He has a history of severe concentric left ventricular hypertrophy and severe left ventricular systolic dysfunction, most recent ejection fraction is performed in August, was 25%. He has a dual-chamber ICD. He has a history of paroxysmal atrial flutter requiring past cardioversion but is in sinus rhythm at present. He presents with generalized complaints of weakness. He also notes difficulty with feeling like he cannot control his hands and his legs. He had described worsening tremor at his most recent outpatient visit with me. His past medical history is otherwise notable for type 2 diabetes mellitus, and progressive renal dysfunction likely related to systemic amyloid. His recent creatinine level has been in the range of 2-2.5. At time of presentation to the emergency department last evening his glucose was 802 mg/dL, this is improved to 104 with administration of IV fluids and IV insulin. Allergies Allergy/AdvReac Type Severity Reaction Status Date / Time No Known Allergies Allergy Mild Verified 11/14/20 01:03 Home Medications Medication Instructions Recorded Confirmed Type ferrous sulfate [iron] 325 mg PO QAM 09/17/18 11/14/20 History glucosamine-chondroitin [Cidaflex] 1 tab PO QAM 09/17/18 11/14/20 History metoprolol succinate [Toprol XL] 25 mg PO BID 05/05/19 11/14/20 History methocarbamol 500 mg tablet 500 mg PO BID #90 tab 05/17/19 11/14/20 History oxycodone [Roxicodone] 5 mg PO Q6H PRN 09/17/19 11/14/20 History Eliquis 2.5 mg PO Q12H #60 tab 02/09/20 11/14/20 Rx amiodarone 200 mg PO QAM 02/09/20 11/14/20 History alfuzosin [Uroxatral] 10 mg PO QAM 10/18/20 11/14/20 History calcium carbonate-vitamin D3 1 tab PO DAILY 11/14/20 11/14/20 History [Calcium 500 + D] cetirizine [Zyrtec] 10 mg PO DAILY PRN 11/14/20 11/14/20 History gabapentin 400 mg PO BID 11/14/20 11/14/20 History green tea extract 0 mg PO DAILY 11/14/20 11/14/20 History metolazone 2.5 mg PO 2XWK 11/14/20 11/14/20 History omeprazole 20 mg PO BID 11/14/20 11/14/20 History patisiran (lipid complex) 0 mg IV .[id number] 11/14/20 11/14/20 History potassium chloride 20 meq PO UD 11/14/20 11/14/20 History tafamidis 61 mg PO DAILY 11/14/20 11/14/20 History torsemide 40 mg PO QAM 11/14/20 11/14/20 History Patient History Medical History Atrial fibrillation "A.Flutter" onset March 2019 BPH (benign prostatic hyperplasia) Cardiac amyloidosis Chronic back pain Chronic combined systolic and diastolic CHF (congestive heart failure) CKD (chronic kidney disease), stage III Seen in ED on 02/03 for acute dehydration/JOO. Baseline Cr noted to be around 2.0, was elevate at 2.7. Congestive heart failure Degenerative disc disease Diabetes mellitus, type II monitoring higher glucose lab testing, possibly related to medication changes in 2019. to have rechecked. following with PCP. Diverticular disease GERD (gastroesophageal reflux disease) History of cardioversion 05/08/19 DONE AT [facility] History of recent fall 07/2020, treated at [facility] Emergency Room. unsure why he fell, may have "passed out?". broken wrist-->casted, no surgical intervention. Hx of atrial flutter 2015 [facility] per medical record Hyperlipidemia Hypertension ICD (implantable cardioverter-defibrillator) in place IMPLANTED 05/30 [employer] (DR. BRYANT) On anticoagulant therapy Osteoarthritis Scoliosis Spinal stenosis Surgical History History of appendectomy History of arthroscopy RT SHOULDER History of back surgery LUMBAR SPINE History of cardiac cath SUMMER 2017 - [facility] - REASON? - NO STENTS/ANGIOPLASTY - DR. BRYANT History of cardioversion 2018 & 01/2020 ([facility]) History of carpal tunnel release BL History of cataract surgery RT/LEFT History of colonoscopy History of esophagogastroduodenoscopy (EGD) History of tooth extraction S/P cardiac pacemaker procedure ICD placed 2018 (Dr Bryant) S/P epidural steroid injection Lumbar Family History Mother FHx: breast cancer Grandmother (Paternal) FHx: stroke Grandmother (Paternal) FHx: myocardial infarction Father Kidney disease ESRD due to DM. 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 Gastrointestinal (Abdomen): normal bowel sounds, soft, nontender, no hepatosplenomegaly Neurologic: Noted tremor Results & Data ([facility]) Vital Signs (Past 12 Hours) Vital Signs Temp Pulse Pulse Pulse Resp BP Pulse Ox 11/14/20 13:35 93 11/14/20 11:21 36.7 C 60 16 111/71 90 11/14/20 07:15 36.6 C 60 60 16 98/62 L 98 Laboratory Results Cardiac Enzymes 11/14/20 Range/Units 00:01 AST 17 (15-37) U/L Troponin I 0.190 H* (0-0.045) ng/ml CBC 11/14/20 11/14/20 Range/Units 00:01 04:53 WBC 7.59 7.50 (4.8-10.8) K/uL RBC 5.75 4.99 (4.7-6.1) M/uL Hgb 16.2 14.3 (14.0-18.0) g/dL Hct 48.1 41.7 L (42-52) % Plt Count 151 134 (130-400) K/uL Neut # (Auto) 6.07 5.88 (1.4-6.5) K/uL Lymph # (Auto) 0.89 L 0.87 L (1.2-3.4) K/uL [place] # (Auto) 0.56 0.70 H (0.11-0.59) K/uL Eos # (Auto) 0.01 0.01 (0-0.5) K/uL Baso # (Auto) 0.03 0.02 (0-0.2) K/uL Comprehensive Metabolic Panel 11/14/20 11/14/20 11/14/20 Range/Units 00:01 04:53 15:40 Sodium 141 144 147 H (136-145) mmol/L Potassium 4.0 3.1 L D 3.7 D (3.5-5.1) mmol/L Chloride 96 L 103 108 H (98-107) mmol/L Carbon Dioxide 37 H 37 H 36 H (21-32) mmol/L BUN 57 H 50 H 44 H (7-18) mg/dl Creatinine 2.78 H 2.34 H D 2.08 H (0.6-1.4) mg/dl Glucose 802 H* 419 H* 104 H (70-99) mg/dl Calcium 9.7 8.6 8.8 (8.5-10.1) mg/dl AST 17 (15-37) U/L ALT 37 (12-78) U/L Alkaline Phosphatase 119 H (45-117) U/L Total Protein 7.7 (6.4-8.2) gm/dl Albumin 3.7 (3.4-5.0) gm/dl Intake and Output 11/14/20 11/14/20 11/14/20 06:59 14:59 22:59 Intake Total 2404.193 / 2404.193 1182.763 / 1183.045 0.282 / 1183.045 Output Total 500 / 500 Balance 2404.193 / 2404.193 682.763 / 683.045 0.282 / 683.045 Intake: IV 2104.193 / 2104.193 552.763 / 553.045 0.282 / 553.045 D5W AND 1/2NSS + 20MEQ KCL 20 530 / 530 meq In 1,000 ml @ 75 mls/hr IV .[id number] ASHLEE Rx#:[id number] NovoLIN R 250 UNITS In Nss 247. 4.193 / 4.193 22.763 / 23.045 0.282 / 23.045 5 ml @ 3.7 UNITS/HR 3.7 mls/hr IV .Q24H ASHLEE Rx#:[id number] 1/2 Nss 1,000 ml @ 75 mls/hr IV 100 / 100 .[id number] ASHLEE Rx#:[id number] Nss 1000ML 1,000 ml @ 999 mls/ 2000 / 2000 hr IV .Q1H1M ONE Rx#:[id number] Oral 300 / 300 630 / 630 Output: Urine 500 / 500 Other: Weight 70.2 kg 70.2 kg Weight Measurement Method Chair Scale Patient Weight 11/15/20 06:59 Weight 70.2 kg Diagnostic Findings EKG performed 11/14/2020 at 5:54 AM revealed sinus rhythm with atrial pacing left bundle branch block, QRS duration 156 ms. Summary of most recent outpatient echocardiogram 08/30/2020 The left ventricular cavity size is normal. The LV wall thickness is severely increased (concentric). There is severe diffuse left ventricular hypokinesis. The qualitative LV ejection fraction is 25-29% (severely reduced). The global longitudinal strain (GLS) is - 8.4 %. Normal left ventricular systolic function is suggested if GLS is -14% to -30%. The left ventricular diastolic function is severely abnormal (grade III). The right ventricular free wall thickness is increased (> 0.5 cm). The right ventricular systolic function is mildly reduced . Moderate aortic valve sclerosis is present. There is trace aortic insufficiency Mild secondary mitral regurgitation is present. Mild tricuspid regurgitation is present. Mild pulmonary hypertension is present. The estimated pulmonary artery systolic pressure is 40-45mm Hg.
[2020-11-15 03:42] LABS: EAG mmol/L 15.9 (calc); HA1C 11.6 (<5.7)
[2020-11-15 06:41] LABS: Hematocrit (blood only) 42.5 % (42-52); Hemoglobin 14.3 g/dL (14.0-18.0); Mean Corpuscular Hemoglobin 28.2 pg (25-34); Mean Corpuscular Hgb Conc 33.6 g/dL (32-36); Mean Corpuscular Volume 83.8 fL (80-100); Mean Platelet Volume 11.1 fL (7.4-10.4); Platelet Count 137 K/uL (130-400); RDW Coefficient of Variation 16.9 % (11.5-14.5); RDW Standard Deviation 52.3 fL (36.4-46.3); Red Blood Count 5.07 M/uL (4.7-6.1); White Blood Count 7.17 K/uL (4.8-10.8)
[2020-11-15 07:15] LABS: BUN Creatinine Ratio 18.8 (10-20); Calcium 8.6 mg/dl (8.5-10.1); Creatinine Clr Calc Pharmacy 30.8 ml/min; Est GFR (African American) 36.8; Est GFR (Non-African American) 31.8; Magnesium 2.6 mg/dl (1.8-2.4); Potassium 3.8 mmol/L (3.5-5.1)
[2020-11-15] MEDS ORDERED: INSULIN GLARGINE SOLOSTAR 100 UNITS/ML 3 ML PEN SC ONE ×2 (07:15→18:00)
[2020-11-15 07:20] LABS: Phosphorus 2.8 mg/dl (2.5-4.9)
[2020-11-15] MEDS: INSULIN ASPART 100 UNITS/ML 3 ML PEN SC SCH ×4 (08:13→20:51)
[2020-11-15] MEDS: APIXABAN 2.5 MG TAB PO SCH ×2 (08:15→20:50)
[2020-11-15] MEDS: CALCIUM 600MG + VIT D 400 IU TAB PO SCH (08:16)
[2020-11-15] MEDS: GLUCOSAMINE SULFATE 500 MG CAP PO SCH (08:16)
[2020-11-15] MEDS: PANTOprazole 40 MG TAB PO SCH ×2 (08:16→20:53)
[2020-11-15] MEDS: AMIODARONE 200 MG TAB PO SCH (08:16)
[2020-11-15] MEDS: METHOCARBAMOL 500 MG TABLET PO SCH ×2 (08:16→20:53)
[2020-11-15] MEDS: METOPROLOL SUCC 25MG EXT REL TAB PO SCH ×2 (08:16→20:52)
[2020-11-15] MEDS: FERROUS SULFATE 325 MG TAB PO SCH (08:16)
[2020-11-15] MEDS: GABAPENTIN 400 MG CAP PO SCH ×2 (08:19→20:51)
--- NOTE | 2020-11-15 08:28 | Hospitalist Progress Note ---
Date of Service November 15, 2020 Assessment & Plan (1) Acute hyperglycemia: (2) Weakness: This is a 79-year-old male who presents with weakness and found to have hyperglycemia. 1. Hyperglycemia, uncontrolled diabetes mellitus type 2 Current hemoglobin A1c 11.7% Previous hemoglobin A1c, from February 2020, 7.0% Pt comes with symptoms of weakness, increased micturition, dry mouth and poor ambulatory status. Could be secondary to ongoing hyperglycemia. The patient is not in DKA. Received a liter of fluids in the ER. Continued with insulin drip protocol, now transferred to subcu insulin. Glycemic pharmacist consulted, also senior health educator consulted. Closely monitor the blood sugars. Follow BMP Per history, patient was previously on Metformin, then Metformin was discontinued, and there was some loss of follow-up/change of PCPs Currently follows with Dr. Jimenez/Gerald, previously followed with PCP at the [place] 2. Acute kidney injury on chronic kidney disease stage III, baseline creatinine around 2, currently creatinine 2.7. Avoid nephrotoxic agents. Getting fluids. Monitor labs in a.m. If kidney function worsens, we will consult nephrology. Follows with nephrology. We are holding the diuretics for now 3.history of combined chronic systolic and diastolic congestive heart failure Recent echo August 2020 showed EF of 25 to 29% and grade III diastolic dysfunction. We will continue his home medications of Toprol-XL and amiodarone. The patient is status post AICD. Continue his Eliquis. Holding the diuretics, torsemide. Patient dehydrated on admission. We will monitor for any volume overload. Holding his potassium supplements as we are holding his diuretics. 3. History of cardiac amyloidosis, currently on patisiran infusion and Vyndamax, Patient follows with cardiology, Dr. Llamas. Dr. Llamas concerned if patient's neuropathy could be also secondary to amyloidosis. Recommends neurology consultation while inpatient. 4.history of non-rheumatic aortic valve stenosis, history of bicuspid aortic valve, mild aortic valve stenosis, follow with cardiology. 5. History of paroxysmal atrial fibrillation on Eliquis, rate control with amiodarone and Toprol-XL. We will monitor. 6. Gastroesophageal reflux disease. Continue Protonix. 7. Chronic pain syndrome. Continue his home pain medications. DVT prophylaxis, on Eliquis. Admission and Anticipated Discharge Date Admission Date: November 14, 2020 Subjective Patient seen in follow-up of hyperglycemia, and weakness Yesterday patient was already feeling better after IV fluids and normalization of his blood sugars Today reports feeling better, able to walk to the bathroom, however he also does report lower extremity weakness that lasted for days Currently denies any chest pain, shortness of breath, abdominal pain, nausea or vomiting Discussed that he will need to be started on insulin, and patient is in agreement Discussed with cardiology, Dr. Llamas, plan to consult neurology given patient's history of amyloidosis, and possible neuropathy secondary to amyloidosis Review of Systems Review of Systems: All systems reviewed & are unremarkable except as noted in HPI & below Constitutional: no fever and no chills Respiratory: no cough and no dyspnea Cardiovascular: no chest pain and no palpitations Gastrointestinal: no abdominal pain, no nausea and no vomiting Physical Exam Physical Exam: GENERAL: The patient is of moderate build, not in acute distress. HEENT: NC/AT, Pupils equal, round, reactive to light. Oral mucosa dry. NECK: No JVD, no neck masses. CARDIOVASCULAR: S1, S2, regular rate and rhythm, no murmur, no gallop. RESPIRATORY SYSTEM: Normal AP diameter. No accessory muscle use. No wheezing, no crackles. ABDOMEN: Soft, bowel sounds present, nontender. No distention. NEURO: Alert and oriented x3, speech fluent, answering questions appropriately, moves extremities, generalized weakness noted (but improved from previous) EXTREMITIES: No edema, no erythema. Results & Data Results & Data ([facility]) Vital Signs (Past 12 Hours) Vital Signs Temp Pulse Pulse Resp BP Pulse Ox 11/15/20 08:13 36.9 C 62 16 109/70 94 11/15/20 07:48 60 11/15/20 04:00 36.9 C 60 18 107/66 94 11/14/20 23:31 60 11/14/20 23:18 36.7 C 60 18 109/61 95 Laboratory Results 11/15/20 11/15/20 11/15/20 Range/Units 07:44 06:42 06:19 WBC (4.8-10.8) K/uL RBC (4.7-6.1) M/uL Hgb (14.0-18.0) g/dL Hct (42-52) % MCV (80-100) fL MCH (25-34) pg MCHC (32-36) g/dL RDW Std Deviation (36.4-46.3) fL RDW Coeff of Daria (11.5-14.5) % Plt Count (130-400) K/uL MPV (7.4-10.4) fL Sodium 143 (136-145) mmol/L Potassium 3.8 (3.5-5.1) mmol/L Chloride 104 (98-107) mmol/L Carbon Dioxide 36 H (21-32) mmol/L Anion Gap 3.0 (3-11) BUN 37 H (7-18) mg/dl Creatinine 1.95 H (0.6-1.4) mg/dl Est Cr Clr Drug Dosing 30.8 ml/min Est GFR ( Amer) 36.8 Est GFR (Non-Af Amer) 31.8 BUN/Creatinine Ratio 18.8 (10-20) Glucose 232 H (70-99) mg/dl POC Glucose 280 H 232 H (70-99) mg/dl Estimated Ave Glu mmol/L (calc) Estimated Ave Glu mg/dL (calc) Hemoglobin A1c (<5.7) Calcium 8.6 (8.5-10.1) mg/dl Phosphorus 2.8 D (2.5-4.9) mg/dl Magnesium 2.6 H (1.8-2.4) mg/dl 11/15/20 11/14/20 11/14/20 Range/Units 06:19 20:18 16:38 WBC 7.17 (4.8-10.8) K/uL RBC 5.07 (4.7-6.1) M/uL Hgb 14.3 (14.0-18.0) g/dL Hct 42.5 (42-52) % MCV 83.8 (80-100) fL MCH 28.2 (25-34) pg MCHC 33.6 (32-36) g/dL RDW Std Deviation 52.3 H (36.4-46.3) fL RDW Coeff of Daria 16.9 H (11.5-14.5) % Plt Count 137 (130-400) K/uL MPV 11.1 H (7.4-10.4) fL Sodium (136-145) mmol/L Potassium (3.5-5.1) mmol/L Chloride (98-107) mmol/L Carbon Dioxide (21-32) mmol/L Anion Gap (3-11) BUN (7-18) mg/dl Creatinine (0.6-1.4) mg/dl Est Cr Clr Drug Dosing ml/min Est GFR ( Amer) Est GFR (Non-Af Amer) BUN/Creatinine Ratio (10-20) Glucose (70-99) mg/dl POC Glucose 173 H 95 (70-99) mg/dl Estimated Ave Glu mmol/L (calc) Estimated Ave Glu mg/dL (calc) Hemoglobin A1c (<5.7) Calcium (8.5-10.1) mg/dl Phosphorus (2.5-4.9) mg/dl Magnesium (1.8-2.4) mg/dl 11/14/20 11/14/20 11/14/20 Range/Units 15:40 14:50 13:50 WBC (4.8-10.8) K/uL RBC (4.7-6.1) M/uL Hgb (14.0-18.0) g/dL Hct (42-52) % MCV (80-100) fL MCH (25-34) pg MCHC (32-36) g/dL RDW Std Deviation (36.4-46.3) fL RDW Coeff of Daria (11.5-14.5) % Plt Count (130-400) K/uL MPV (7.4-10.4) fL Sodium 147 H (136-145) mmol/L Potassium 3.7 D (3.5-5.1) mmol/L Chloride 108 H (98-107) mmol/L Carbon Dioxide 36 H (21-32) mmol/L Anion Gap 3.0 (3-11) BUN 44 H (7-18) mg/dl Creatinine 2.08 H (0.6-1.4) mg/dl Est Cr Clr Drug Dosing 28.6 ml/min Est GFR ( Amer) 34.1 Est GFR (Non-Af Amer) 29.4 BUN/Creatinine Ratio 21.0 H (10-20) Glucose 104 H (70-99) mg/dl POC Glucose 137 H 191 H (70-99) mg/dl Estimated Ave Glu mmol/L (calc) Estimated Ave Glu mg/dL (calc) Hemoglobin A1c (<5.7) Calcium 8.8 (8.5-10.1) mg/dl Phosphorus (2.5-4.9) mg/dl Magnesium (1.8-2.4) mg/dl 11/14/20 11/14/20 11/14/20 Range/Units 12:48 10:46 09:53 WBC (4.8-10.8) K/uL RBC (4.7-6.1) M/uL Hgb (14.0-18.0) g/dL Hct (42-52) % MCV (80-100) fL MCH (25-34) pg MCHC (32-36) g/dL RDW Std Deviation (36.4-46.3) fL RDW Coeff of Daria (11.5-14.5) % Plt Count (130-400) K/uL MPV (7.4-10.4) fL Sodium (136-145) mmol/L Potassium (3.5-5.1) mmol/L Chloride (98-107) mmol/L Carbon Dioxide (21-32) mmol/L Anion Gap (3-11) BUN (7-18) mg/dl Creatinine (0.6-1.4) mg/dl Est Cr Clr Drug Dosing ml/min Est GFR ( Amer) Est GFR (Non-Af Amer) BUN/Creatinine Ratio (10-20) Glucose (70-99) mg/dl POC Glucose 303 H* 275 H 337 H* (70-99) mg/dl Estimated Ave Glu mmol/L (calc) Estimated Ave Glu mg/dL (calc) Hemoglobin A1c (<5.7) Calcium (8.5-10.1) mg/dl Phosphorus (2.5-4.9) mg/dl Magnesium (1.8-2.4) mg/dl 11/14/20 11/14/20 Range/Units 08:50 04:53 WBC (4.8-10.8) K/uL RBC (4.7-6.1) M/uL Hgb (14.0-18.0) g/dL Hct (42-52) % MCV (80-100) fL MCH (25-34) pg MCHC (32-36) g/dL RDW Std Deviation (36.4-46.3) fL RDW Coeff of Daria (11.5-14.5) % Plt Count (130-400) K/uL MPV (7.4-10.4) fL Sodium (136-145) mmol/L Potassium (3.5-5.1) mmol/L Chloride (98-107) mmol/L Carbon Dioxide (21-32) mmol/L Anion Gap (3-11) BUN (7-18) mg/dl Creatinine (0.6-1.4) mg/dl Est Cr Clr Drug Dosing ml/min Est GFR ( Amer) Est GFR (Non-Af Amer) BUN/Creatinine Ratio (10-20) Glucose (70-99) mg/dl POC Glucose 345 H* (70-99) mg/dl Estimated Ave Glu mmol/L 15.9 (calc) Estimated Ave Glu mg/dL 286 (calc) Hemoglobin A1c 11.6 H (<5.7) Calcium (8.5-10.1) mg/dl Phosphorus (2.5-4.9) mg/dl Magnesium (1.8-2.4) mg/dl Medications Administered Current Inpatient Medications Acetaminophen (Acetaminophen 325 Mg Tab) 650 mg PO Q4H PRN PRN Reason: Pain or Fever Stop: 12/14/20 04:03 Amiodarone HCl ([facility]arone 200 Mg Tab) [facility] [place]: 12/14/20 08:59 Last Admin: 11/15/20 08:16 Dose: 200 mg Documented by: Apixaban (Apixaban 2.5 Mg Tab) 2.5 mg PO Q12H COUNT INCLUDES THE [facility] Stop: 12/14/20 08:59 Last Admin: 11/15/20 08:15 Dose: 2.5 mg Documented by: Cetirizine HCl (Cetirizine Hcl 10 Mg Tablet) 10 mg PO DAILY PRN PRN Reason: ON DAYS PRIOR TO PATISIRAN Stop: 12/14/20 04:03 Dextrose (Dextrose 50% 50 Ml Syringe) 25 - 50 ml IV UD PRN; Protocol PRN Reason: Hypoglycemia Protocol Stop: 12/14/20 04:29 Ferrous Sulfate (Ferrous Sulfate 325 Mg Tab) 325 mg PO QAM COUNT INCLUDES THE [facility] Stop: 12/14/20 08:59 Last Admin: 11/15/20 08:16 Dose: 325 mg Documented by: Gabapentin (Gabapentin 400 Mg Cap) 400 mg PO BID COUNT INCLUDES THE [facility] Stop: 12/14/20 08:59 Last Admin: 11/15/20 08:19 Dose: 400 mg Documented by: Glucagon (Glucagon For Inj 1 Mg Vial) 1 mg SQ UD PRN; Protocol PRN Reason: Hypoglycemia Protocol Stop: 12/14/20 04:29 Glucosamine Sulfate (Glucosamine Sulfate 500 Mg Cap) 500 mg PO QAM ASHLEE Stop: 12/14/20 08:59 Last Admin: 11/15/20 08:16 Dose: 500 mg Documented by: Glucose (Glucose 40% Gel 15 Gm Tube) 15 - 30 gm PO UD PRN; Protocol PRN Reason: Hypoglycemia Protocol Stop: 12/14/20 04:29 Glucose (Glucose 10 Tabs/Tube) 4 - 8 tabs PO UD PRN; Protocol PRN Reason: Hypoglycemia Protocol Stop: 12/14/20 04:29 Insulin Aspart (Insulin Aspart 100 Units/Ml 3 Ml Pen) 0 units SC ACHS COUNT INCLUDES THE [facility]; Protocol Stop: 12/14/20 07:29 Last Admin: 11/15/20 08:13 Dose: 11 units Documented by: Methocarbamol (Methocarbamol 500 Mg Tablet) 500 mg PO BID COUNT INCLUDES THE [facility] Stop: 12/14/20 08:59 Last Admin: 11/15/20 08:16 Dose: 500 mg Documented by: Metoprolol Succinate (Metoprolol Succ 25mg Ext Rel Tab) 25 mg PO BID COUNT INCLUDES THE [facility] Stop: 12/14/20 08:59 Last Admin: 11/15/20 08:16 Dose: 25 mg Documented by: Miscellaneous (Tafamidis~Order Awaiting Action) 1 ea N/A QS COUNT INCLUDES THE [facility] Stop: 12/14/20 07:59 Last Admin: 11/15/20 08:15 Dose: Not Given Documented by: Miscellaneous (Carbohydrates For Hypoglycemia ) 15 - 30 gm PO UD PRN PRN Reason: Hypoglycemia Treatment Stop: 12/14/20 04:29 Miscellaneous Information (Pharmacy Glycemic Mgmt Consult) 1 ea N/A UD PRN PRN Reason: Consult Stop: 12/14/20 04:18 Multivitamins/Minerals (Calcium 600mg + Vit D 400 Iu Tab) 1 tab PO DAILY COUNT INCLUDES THE [facility] Stop: 12/14/20 08:59 Last Admin: 11/15/20 08:16 Dose: 1 tab Documented by: Nitroglycerin (Nitroglycerin Sl 0.4 Mg/Tab Tab) 0.4 mg SL UD PRN PRN Reason: Chest Pain Stop: 12/14/20 04:03 Ondansetron HCl (Ondansetron Inj 2 Mg/Ml 2 Ml Vial) 4 mg IV Q6H PRN PRN Reason: Nausea Stop: 12/14/20 04:03 Oxycodone HCl (Oxycodone Hcl Ir 5 Mg Tab (Immediate Release)) 5 mg PO Q6H PRN PRN Reason: Pain Stop: 11/28/20 04:14 Pantoprazole Sodium (Pantoprazole 40 Mg Tab) 40 mg PO BID ASHLEE Stop: 12/14/20 08:59 Last Admin: 11/15/20 08:16 Dose: 40 mg Documented by: Polyethylene Glycol (Polyethylene (Miralax) 17 Gm Pack) 17 gm PO DAILY PRN PRN Reason: Constipation Stop: 12/14/20 04:03 Last Admin: 11/14/20 21:05 Dose: 17 gm Documented by:
--- NOTE | 2020-11-15 12:40 | Neurology Consultation ---
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 no pain at this time would not treat. 2. absent knee and ankle jerks bilaterally 3. continue patisiran for amyloidosis Present on Admission?: Yes (2) Involuntary jerky movements: 1. not seen during this visit 2. will see after discharge in out patient and may need EEG r/o seizure may use Keppra in the future if jerking is persistent. 3. narcotics may be adding to jerking alone with glucose abnormality which is being corrected and renal clearance 4. follow up in neurology 4-6 weeks after discharge 5. PT/OT for discharge needs. Present on Admission?: Yes Supervising Physician Co-Signing Physician Notes I have seen and discussed above patient with Dr Stanton Casey, neurology I know Reinier from multiple visits on outpatient basis over the years. We have address his lower back issues his cervical radiculopathy is presumptive diabetic polyneuropathy and we are now being asked to address what sounds like low- frequency myoclonus over the past several months occurring in association with treatment of an amyloid cardiomyopathy, and low-dose narcotics for his low back pain coupled with relatively low-dose gabapentin. Over the past week or so the myoclonus has gotten more frequent and may correlate with an element of hyperosmolarity related to his elevated glucoses and perhaps diminished renal clearance of his narcotics the dosage of which he also increased slightly because of increasing back pain. Is possible his gabapentin clearance was also diminished a bit and his 3-combination may have reduced frequent myoclonus to the point that he would drop objects or have them suddenly fly into the air due to the involuntary movements. He denies any tremor per se never really had much and now after his glucose levels have gotten under control the movements are gone and neither Naty Crespo nor myself after spending a reasonable amount of time with him could not see spontaneous myoclonus nor could we elicit it with appropriate distraction or positioning of his arms and exam shows no deficits in mental status, no cranial neuropathies, and no significant motor system weakness but does confirm presence of a polyneuropathy with absent reflexes at the ankles and knees and some minor distal sensory loss but without any alteration in pain and temperature and with no subjective complaints of pain I suspect this was noncortical myoclonus related to the interaction of hyperosmolarity, and probable elevated levels of narcotics and conceivably gabapentin related to some transient renal dysfunction which is also cleared If after discharge this continues to occur we would be most happy to look at him, order an EEG perhaps a 72-hour tracing just to see if there is any cortical discharges associated with the events and consider treatment with Keppra if indeed this is cortical myoclonus but frankly I doubt this is the case. 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 He lives alone, ambulates with a walker, comes because of weakness in the last week. His legs are very weak and unable to ambulate. He is having dry mouth and also having increased micturition and he came to the ER and found to have blood sugars in the 800s. He said he took metformin for 4 years, but it was stopped because his diabetes came under control. He is feeling better today. the jerking movement started about 3 months ago. He was taking oxycodone 2 x per day and he did increase it to 4 x per day. he demonstrates a jerking movement of his arms when it happens and has dropped glasses and pitchers with pouring liquid. denies CP, SOB, abdominal pain, +generalized weakness but has improved since hospitalization. Allergies Allergy/AdvReac Type Severity Reaction Status Date / Time No Known Allergies Allergy Mild Verified 11/14/20 01:03 Home Medications Medication Instructions Recorded Confirmed Type ferrous sulfate [iron] 325 mg PO QAM 09/17/18 11/14/20 History glucosamine-chondroitin [Cidaflex] 1 tab PO QAM 09/17/18 11/14/20 History metoprolol succinate [Toprol XL] 25 mg PO BID 05/05/19 11/14/20 History methocarbamol 500 mg tablet 500 mg PO BID #90 tab 05/17/19 11/14/20 History oxycodone [Roxicodone] 5 mg PO Q6H PRN 09/17/19 11/14/20 History Eliquis 2.5 mg PO Q12H #60 tab 02/09/20 11/14/20 Rx amiodarone 200 mg PO QAM 02/09/20 11/14/20 History alfuzosin [Uroxatral] 10 mg PO QAM 10/18/20 11/14/20 History calcium carbonate-vitamin D3 1 tab PO DAILY 11/14/20 11/14/20 History [Calcium 500 + D] cetirizine [Zyrtec] 10 mg PO DAILY PRN 11/14/20 11/14/20 History gabapentin 400 mg PO BID 11/14/20 11/14/20 History green tea extract 0 mg PO DAILY 11/14/20 11/14/20 History metolazone 2.5 mg PO 2XWK 11/14/20 11/14/20 History omeprazole 20 mg PO BID 11/14/20 11/14/20 History patisiran (lipid complex) 0 mg IV .[id number] 11/14/20 11/14/20 History potassium chloride 20 meq PO UD 11/14/20 11/14/20 History tafamidis 61 mg PO DAILY 11/14/20 11/14/20 History torsemide 40 mg PO QAM 11/14/20 11/14/20 History Patient History Medical History Atrial fibrillation "A.Flutter" onset March 2019 BPH (benign prostatic hyperplasia) Cardiac amyloidosis Chronic back pain Chronic combined systolic and diastolic CHF (congestive heart failure) CKD (chronic kidney disease), stage III Seen in ED on 02/03 for acute dehydration/JOO. Baseline Cr noted to be around 2.0, was elevate at 2.7. Congestive heart failure Degenerative disc disease Diabetes mellitus, type II monitoring higher glucose lab testing, possibly related to medication changes in 2019. to have rechecked. following with PCP. Diverticular disease GERD (gastroesophageal reflux disease) History of cardioversion 05/08/[address] [facility] History of recent fall 07/2020, treated at [facility] Emergency Room. unsure why he fell, may have "passed out?". broken wrist-->casted, no surgical intervention. Hx of atrial flutter 2015 [facility] per medical record Hyperlipidemia Hypertension ICD (implantable cardioverter-defibrillator) in place IMPLANTED 05/30 [employer] (DR. BRYANT) On anticoagulant therapy Osteoarthritis Scoliosis Spinal stenosis Surgical History History of appendectomy History of arthroscopy RT SHOULDER History of back surgery LUMBAR SPINE History of cardiac cath SUMMER 2017 - [facility] - REASON? - NO STENTS/ANGIOPLASTY - DR. BRYANT History of cardioversion 2018 & 01/2020 ([facility]) History of carpal tunnel release BL History of cataract surgery RT/LEFT History of colonoscopy History of esophagogastroduodenoscopy (EGD) History of tooth extraction S/P cardiac pacemaker procedure ICD placed 2018 (Dr Bryant) S/P epidural steroid injection Lumbar Family History Mother FHx: breast cancer Grandmother (Paternal) FHx: stroke Grandmother (Paternal) FHx: myocardial infarction Father Kidney disease ESRD due to DM. 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 Other Information That Helps Us Care for You: No Feels Safe at Home: Yes Safety Concerns: Feels Safe At This Time Assistive Devices: Cane Review of Systems Review of Systems: All systems reviewed & are unremarkable except as noted in HPI & below Physical Exam Physical Exam: Physical Exam: Constitutional: appearance thin pleasant Ears, Nose, Mouth and Throat: mucous membranes moist, no injection and skin normal, eyes normal Cardiovascular: irregular Respiratory: course breath sounds with expiratory wheezing Musculoskeletal: no peripheral edema and weak distal pulses Skin: no stigmata of neurocutaneous disease noted and normal and intact Eyes: extraocular muscles intact (EOMI) and pupils equal, round and reactive to light (PERRL) NEUROLOGIC EXAMINATION: Mental status: Alert and interactive Oriented to full date and location Oriented to person Speech fluent with no evidence of aphasia Cranial Nerves facial symmetry Reflexes: Deep tendon reflexes were 2+ UE, +0 LE Sensory: intact to light touch, cool touch Coordination: finger to nose no tremor Gait/Stance: Posture lying in bed Motor: Negative for pronator drift of out stretched arms with eyes closed. no reaching tremor or myoclonic jerks. Strength: hand magnetizer biceps triceps bilaterally 5/5, hip flex plantar flex ext bilaterally 5/5 Results & Data ([facility]) Vital Signs (Past 12 Hours) Vital Signs Temp Pulse Pulse Resp BP BP Pulse Ox 11/15/20 12:00 36.7 C 60 18 107/70 97 11/15/20 08:13 36.9 C 62 16 109/70 94 11/15/20 07:48 60 11/15/20 04:00 36.9 C 60 18 107/66 94 Laboratory Results Abnormal lab results 11/14/20 11/14/20 11/14/20 Range/Units 04:53 12:48 13:50 RDW Std Deviation (36.4-46.3) fL RDW Coeff of Daria (11.5-14.5) % MPV (7.4-10.4) fL Sodium (136-145) mmol/L Chloride (98-107) mmol/L Carbon Dioxide (21-32) mmol/L BUN (7-18) mg/dl Creatinine (0.6-1.4) mg/dl BUN/Creatinine Ratio (10-20) Glucose (70-99) mg/dl POC Glucose 303 H* 191 H (70-99) mg/dl Hemoglobin A1c 11.6 H (<5.7) Magnesium (1.8-2.4) mg/dl 11/14/20 11/14/20 11/14/20 Range/Units 14:50 15:40 20:18 RDW Std Deviation (36.4-46.3) fL RDW Coeff of Daria (11.5-14.5) % MPV (7.4-10.4) fL Sodium 147 H (136-145) mmol/L Chloride 108 H (98-107) mmol/L Carbon Dioxide 36 H (21-32) mmol/L BUN 44 H (7-18) mg/dl Creatinine 2.08 H (0.6-1.4) mg/dl BUN/Creatinine Ratio 21.0 H (10-20) Glucose 104 H (70-99) mg/dl POC Glucose 137 H 173 H (70-99) mg/dl Hemoglobin A1c (<5.7) Magnesium (1.8-2.4) mg/dl 11/15/20 11/15/20 11/15/20 Range/Units 06:19 06:19 06:42 RDW Std Deviation 52.3 H (36.4-46.3) fL RDW Coeff of Daria 16.9 H (11.5-14.5) % MPV 11.1 H (7.4-10.4) fL Sodium (136-145) mmol/L Chloride (98-107) mmol/L Carbon Dioxide 36 H (21-32) mmol/L BUN 37 H (7-18) mg/dl Creatinine 1.95 H (0.6-1.4) mg/dl BUN/Creatinine Ratio (-20) Glucose 232 H (70-99) mg/dl POC Glucose 232 H (70-99) mg/dl Hemoglobin A1c (<5.7) Magnesium 2.6 H (1.8-2.4) mg/dl 11/15/20 11/15/20 Range/Units 07:44 11:50 RDW Std Deviation (36.4-46.3) fL RDW Coeff of Daria (11.5-14.5) % MPV (7.4-10.4) fL Sodium (136-145) mmol/L Chloride (98-107) mmol/L Carbon Dioxide (21-32) mmol/L BUN (7-18) mg/dl Creatinine (0.6-1.4) mg/dl BUN/Creatinine Ratio (10-20) Glucose (70-99) mg/dl POC Glucose 280 H 282 H (70-99) mg/dl Hemoglobin A1c (<5.7) Magnesium (1.8-2.4) mg/dl Diagnostic Findings CXR-Cardiac silhouette is enlarged, unchanged. Left subclavian pacer/AICD. Calcified plaque of the thoracic aorta. No pneumothorax, pleural effusion, airspace consolidation or overt pulmonary edema. Mid thoracic dextroscoliosis. Bones of the chest appear grossly intact.
--- NOTE | 2020-11-15 12:43 | Pharmacy Report ---
Pharmacy Glycemic Short Note 2 - Date of Service November 15, 2020 - Glycemic Short BSG Results (Last 24 hours): 11/14/20 11/14/20 11/14/20 12:48 13:50 14:50 Glucose POC Glucose 303 H* 191 H 137 H 11/14/20 11/14/20 11/14/20 15:40 16:38 20:18 Glucose 104 H POC Glucose 95 173 H 11/15/20 11/15/20 11/15/20 06:19 06:42 07:44 Glucose 232 H POC Glucose 232 H 280 H 11/15/20 11:50 Glucose POC Glucose 282 H OUTPATIENT ANTIDIABETIC REGIMEN: * none * HbA1c: 11.6% (11/14/20) -- up from 7.0% in February 2020 ASSESSMENT: 11/15/20: * Mr Givens was transitioned from IV to SQ insulin yesterday evening. * BSGs have been elevated this morning, despite an increase in basal insulin and tighter carb coverage. * Will continue to tighten regimen until adequate control is achieved. 11/14 * Mr Givens was admitted overnight with severe hyperglycemia (BSG >800mg/dL). * Pt initiated on IV insulin infusion on admission. * Transition to SQ insulin was started this morning, as labs appropriate and do not indicate DKA. * IVF with dextrose have been held and BSGs have begun to improve after the first dose of Lantus was given. * Will continue to follow and adjust regimen as patient completes transition to SQ insulin. PLAN FOR INPATIENT GLYCEMIC CONTROL: * Basal insulin * Lantus 30 units SQ x1 dose this morning. * Lantus 0-15 units SQ this evening, based on BSGs * Bolus insulin * NovoLog per scale ACHS or Q6hrs while NPO * Goal Range: Low 110 mg/dL - High 140 mg/dL * Correction Factor: 25 mg/dL/unit * Nutritional / Prandial insulin per carb ratio of 1 unit per 8 grams CHO consumed PLAN FOR DISCHARGE: * A1c: 11.6% * This indicates very poor glycemic control as an outpatient. This has increased from 7.0% in the past year. * Patient lost his recently, which may be contributing to the change in his glycemic mgmt (diet, exercise, etc.), although, he does appear to be mindful of DM lifestyle considerations. * CDE has met with patient during admission, and he is willing to utilize insulin after discharge. Will want to keep the regimen pretty simple for him. * It's still unclear exactly what patient's insulin needs will be, as he is pretty insulin-resistant at this time. * A reasonable starting point might be Lantus 50 units SQ daily. Expect that this will require titration as an outpt and close f/u with outpt provider(s). * Continue to encourage patient to enforce good diet/lifestyle choices.
--- NOTE | 2020-11-15 13:43 | Cardiology Progress Note ---
Date of Service November 15, 2020 Assessment & Plan (1) Familial transthyretin amyloid cardiomyopathy: Admitted with overall volume depletion , hyperglycemia. Pt recalled metformin discontinued because DM was better, however, I believe it was due to his worsening renal function. 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 Notes recent tremors, unable to poor glass of water at home. Improved today. (2) Atrial flutter: In SR. Continue Eliquis 2.5 mg BID.Amiodarone, Metoprolol. (3) Tremor: Consult Neurology. Had been seen at [facility] [place] in 2019. Question if any additional therapy could help with was seems like an intention tremor -like symptom. Admission and Anticipated Discharge Date Admission Date: November 14, 2020 Subjective Mr Chon is seen in follow up. Denies chest pain. Energy level improved. Review of Systems Review of Systems: All systems reviewed & are unremarkable except as noted in HPI & below Physical Exam Physical Exam: Temp Pulse Resp BP Pulse Ox 36.7 C 60 18 107/70 97 11/15/20 12:00 11/15/20 12:00 11/15/20 12:00 11/15/20 12:00 11/15/20 12:00 Constitutional: + cachectic; no acute distress Respiratory: normal respiratory effort, lungs clear to auscultation Cardiovascular: RRR, no murmur, no edema Neurologic: mentating well , no tremor today Results & Data ([place]) Vital Signs (Past 12 Hours) Vital Signs Temp Pulse Pulse Resp BP BP Pulse Ox 11/15/20 12:00 36.7 C 60 18 107/70 97 11/15/20 08:13 36.9 C 62 16 109/70 94 11/15/20 07:48 60 11/15/20 04:00 36.9 C 60 18 107/66 94 Laboratory Results CBC 11/15/20 Range/Units 06:19 WBC 7.17 (4.8-10.8) K/uL RBC 5.07 (4.7-6.1) M/uL Hgb 14.3 (14.0-18.0) g/dL Hct 42.5 (42-52) % Plt Count 137 (130-400) K/uL Comprehensive Metabolic Panel 11/14/20 11/15/20 Range/Units 15:40 06:19 Sodium 147 H 143 (136-145) mmol/L Potassium 3.7 D 3.8 (3.5-5.1) mmol/L Chloride 108 H 104 (98-107) mmol/L Carbon Dioxide 36 H 36 H (21-32) mmol/L BUN 44 H 37 H (7-18) mg/dl Creatinine 2.08 H 1.95 H (0.6-1.4) mg/dl Glucose 104 H 232 H (70-99) mg/dl Calcium 8.8 8.6 (8.5-10.1) mg/dl Intake and Output 11/14/20 11/15/20 11/15/20 22:59 06:59 14:59 Intake Total 150.282 / 1333.045 Output Total 250 / 1150 400 / 1150 Balance -99.718 / 183.045 -400 / 183.045 Intake: IV 0.282 / 553.045 NovoLIN R 250 UNITS In Nss 247. 0.282 / 23.045 5 ml @ 0 UNITS/HR IV .[facility] Rx#:[id number] Oral 150 / 780 Output: Urine 250 / 1150 400 / 1150 Other: Other Intake Source SIPS Weight 70.9 kg Weight Measurement Method Built in [facility]
[2020-11-16 08:48] LABS: BUN Creatinine Ratio 21.3 (10-20); Calcium 8.3 mg/dl (8.5-10.1); Creatinine Clr Calc Pharmacy 37.3 ml/min; Est GFR (African American) 44.8; Est GFR (Non-African American) 38.6; Potassium 3.6 mmol/L (3.5-5.1)
[2020-11-16] MEDS: oxyCODONE HCL IR 5 MG TAB (IMMEDIATE RELEASE) PO PRN (09:07)
[2020-11-16] MEDS: FERROUS SULFATE 325 MG TAB PO SCH (09:07)
[2020-11-16] MEDS: CALCIUM 600MG + VIT D 400 IU TAB PO SCH (09:07)
[2020-11-16] MEDS: METOPROLOL SUCC 25MG EXT REL TAB PO SCH ×2 (09:08→20:47)
[2020-11-16] MEDS: METHOCARBAMOL 500 MG TABLET PO SCH ×2 (09:08→20:46)
[2020-11-16] MEDS: GLUCOSAMINE SULFATE 500 MG CAP PO SCH (09:08)
[2020-11-16] MEDS: PANTOprazole 40 MG TAB PO SCH ×2 (09:08→20:47)
[2020-11-16] MEDS: AMIODARONE 200 MG TAB PO SCH (09:08)
[2020-11-16] MEDS: GABAPENTIN 400 MG CAP PO SCH ×2 (09:09→20:46)
[2020-11-16] MEDS: APIXABAN 2.5 MG TAB PO SCH ×2 (09:09→20:47)
[2020-11-16] MEDS: INSULIN ASPART 100 UNITS/ML 3 ML PEN SC SCH ×4 (09:10→20:47)
[2020-11-16] MEDS: INSULIN GLARGINE SOLOSTAR 100 UNITS/ML 3 ML PEN SC SCH (10:16)
--- NOTE | 2020-11-16 13:13 | Hospitalist Progress Note ---
Date of Service November 16, 2020 Assessment & Plan (1) Acute hyperglycemia: Present on admission with Hyperglycemia, weakness and increased urinary frequency BS on admission 802 Pt was started on IV insulin drip and IVF Pharmacy on board for glycemic management Continue Lantus 35 units subq and novolog sliding scale Insulin cost checked for patient - less than $10 dollars per month- pt said that he will be able to afford it Continue monitor BS Acute kidney injury on chronic kidney disease stage III, Creatinine on admission 2.7, baseline creatinine around 2 Mostly due to dehydration due to elevate BS Received IVF Continue to hold diuretic due to Shahzad Creatinine 1.6 today Continue to avoid nephrotoxic agents. Continue monitor BMP History of combined chronic systolic and diastolic congestive heart failure Most Recent echo August 2020 showed EF of 25 to 29% and grade III diastolic dysfunction. S/P AICD Continue Toprol-XL Continue Stable Familial transthyretin amyloid cardiomyopathy: Continue patisiran infusion and Vyndamax Cardiology on board Torsemide and metolazone Involuntary jerky movements Tremors Might be related to metabolic etiology due to high glucose vs narcotic Neuro was consulted and recommended no additional testing Follow up with neuro outpatient in 4-6 weeks If jerking movement reoccur plan to get EEG outpatient and possible starting on Keppra Continue monitor History of paroxysmal atrial fibrillation Rate control with with amiodarone and metoprolol Continue eliqiis Gastroesophageal reflux disease. Continue Protonix. Chronic pain syndrome. Continue his home pain medications. Deep venous thrombosis prophylaxis, on Eliquis. Admission and Anticipated Discharge Date Admission Date: November 14, 2020 Subjective Pt was seen and examined for follow up of weakness and elevated BS Lying in bed with no distress Pt said that he feels much better today He said that he was able to ambulate with therapy today He said that the intermittent tremor or jerking movement improve significantly Denies any chest pain, palpitation, dizziness and SOB Review of Systems Review of Systems: All systems reviewed & are unremarkable except as noted in Subjective Physical Exam Physical Exam: General- No acute distress Head- atraumatic Eyes- PERRL, EOMI, ENT- oropharynx clear Neck- supple, no JVD Lungs- clear to auscultation Heart- regular rhythm; +murmur Abdomen- normal bowel sounds, soft, nontender Extremities- no calf tenderness Neuro- alert, oriented x 3; PERRL, EOMI; no facial palsy; no dysarthria Skin- warm & dry Results & Data Results & Data ([facility]) Vital Signs (Past 12 Hours) Vital Signs Temp Pulse Pulse Resp BP Pulse Ox 11/16/20 11:00 36.7 C 59 L 18 110/72 96 11/16/20 07:27 36.9 C 59 L 18 105/64 97 11/16/20 07:23 63 11/16/20 03:00 36.5 C 60 17 102/61 96 11/16/20 02:29 60
--- NOTE | 2020-11-16 13:25 | Pharmacy Report ---
Pharmacy Glycemic Short Note 2 - Date of Service November 16, 2020 - Glycemic Short BSG Results (Last 24 hours): 11/15/20 11/15/20 11/16/20 16:34 20:01 07:34 Glucose POC Glucose 144 H 168 H 143 H 11/16/20 11/16/20 07:42 11:32 Glucose 129 H POC Glucose 180 H OUTPATIENT ANTIDIABETIC REGIMEN: * none * HbA1c: 11.6% (11/14/20) -- up from 7.0% in February 2020 ASSESSMENT: 11/16/20: * Mr Givens received 68 units of insulin yesterday, with steadily improving BSGs. * 38 units of basal insulin * 30 units of correctional/prandial insulin * Fasting BSG much improved today (129,143). Suspect that Lantus will be slow to reach steady-state given renal impairment. * Will give slightly less basal insulin today, in case still not at steady- state. May need to loosen Novolog parameters if it begins to look like insulin stacking is occurring. No changes for now. 11/15 * Mr Givens was transitioned from IV to SQ insulin yesterday evening. * BSGs have been elevated this morning, despite an increase in basal insulin and tighter carb coverage. * Will continue to tighten regimen until adequate control is achieved. 11/14 * Mr Givens was admitted overnight with severe hyperglycemia (BSG >800mg/dL). * Pt initiated on IV insulin infusion on admission. * Transition to SQ insulin was started this morning, as labs appropriate and do not indicate DKA. * IVF with dextrose have been held and BSGs have begun to improve after the first dose of Lantus was given. * Will continue to follow and adjust regimen as patient completes transition to SQ insulin. PLAN FOR INPATIENT GLYCEMIC CONTROL: * Basal insulin * Lantus 35 units SQ daily * Bolus insulin * NovoLog per scale ACHS or Q6hrs while NPO * Goal Range: Low 110 mg/dL - High 140 mg/dL * Correction Factor: 25 mg/dL/unit * Nutritional / Prandial insulin per carb ratio of 1 unit per 8 grams CHO consumed PLAN FOR DISCHARGE: * A1c: 11.6% * This indicates very poor glycemic control as an outpatient. This has increased from 7.0% in the past year. * Patient lost his recently, which may be contributing to the change in his glycemic mgmt (diet, exercise, etc.), although, he does appear to be mindful of DM lifestyle considerations. * CDE has met with patient during admission, and he is willing to utilize insulin after discharge. Will want to keep the regimen pretty simple for him. * It's still unclear exactly what patient's insulin needs will be, as he is pretty insulin-resistant at this time. * A reasonable starting point might be Lantus 40 units SQ daily. Expect that this will require titration as an outpt and close f/u with outpt provider(s). * Continue to encourage patient to enforce good diet/lifestyle choices.
--- NOTE | 2020-11-16 14:42 | Cardiology Progress Note ---
Date of Service November 16, 2020 Assessment & Plan (1) Familial transthyretin amyloid cardiomyopathy: Admitted with overall volume depletion , hyperglycemia. Pt recalled metformin discontinued because DM was better, however, I believe it was due to his worsening renal function. 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 Notes recent tremors, unable to poor glass of water at home. Improved today. Continue tafamidis and patisiran as outpatient. Holding torsemide and metolazone at present. Resume at discharge. (2) Atrial flutter: In SR. Continue Eliquis 2.5 mg BID.Amiodarone, Metoprolol. (3) Tremor: Neuro input noted and appreciated. Acute difficulty with hand movements has improved at present, perhaps with improving metabolic derangements. Outpatient neurology follow-up planned. (4) Acute hyperglycemia: Hemoglobin A1c 11.6 on presentation, increased compared to his February,. Per hospitalist medicine / clinical pharmacy. Now on SQ insulin. Admission and Anticipated Discharge Date Admission Date: November 14, 2020 Subjective Patient seen in follow-up of his history of cardiac amyloidosis. Fine status is stable. He feels much improved. Creatinine has trended to improvement compared to his recent baseline. Most recent glucose 180. Telemetry reveals sinus rhythm with atrial pacing. Review of Systems Review of Systems: All systems reviewed & are unremarkable except as noted in HPI & below Recent tremor improved at present Physical Exam Physical Exam: Temp Pulse Resp BP Pulse Ox 36.7 C 59 L 18 110/72 96 11/16/20 11:00 11/16/20 11:00 11/16/20 11:00 11/16/20 11:00 11/16/20 11:00 Constitutional: WD/WN, vitals as above Respiratory: normal respiratory effort, lungs clear to auscultation Cardiovascular: Rate/Rhythm: regular rhythm Heart Sounds: + murmur (I/ SM) Vessels: no JVD Extremities: no edema Gastrointestinal (Abdomen): normal bowel sounds, soft, nontender, no hepatosplenomegaly Neurologic: PERRL, EOMI, accommodation nl, no face palsy, no dysarthria Results & Data ([facility]) Vital Signs (Past 12 Hours) Vital Signs Temp Pulse Pulse Resp BP Pulse Ox 11/16/20 11:00 36.7 C 59 L 18 110/72 96 11/16/20 07:27 36.9 C 59 L 18 105/64 97 11/16/20 07:23 63 11/16/20 03:00 36.5 C 60 17 102/61 96 Laboratory Results Comprehensive Metabolic Panel 11/16/20 Range/Units 07:42 Sodium 137 (136-145) mmol/L Potassium 3.6 (3.5-5.1) mmol/L Chloride 101 (98-107) mmol/L Carbon Dioxide 32 (21-32) mmol/L BUN 35 H (7-18) mg/dl Creatinine 1.66 H (0.6-1.4) mg/dl Glucose 129 H (70-99) mg/dl Calcium 8.3 L (8.5-10.1) mg/dl Intake and Output 11/15/20 11/16/20 11/16/20 22:59 06:59 14:59 Intake Total 240 / 820 340 / 340 Balance 240 / 820 340 / 340 Intake: Oral 240 / 820 340 / 340 Other: # Unmeasured Voids 1 Weight 74.6 kg 74.6 kg Weight Measurement Method Built in [facility] Patient Weight 11/17/20 06:59 Weight 74.6 kg
[2020-11-17] MEDS: oxyCODONE HCL IR 5 MG TAB (IMMEDIATE RELEASE) PO PRN ×2 (04:34→10:21)
[2020-11-17] MEDS: PANTOprazole 40 MG TAB PO SCH (07:59)
[2020-11-17] MEDS: METOPROLOL SUCC 25MG EXT REL TAB PO SCH (08:00)
[2020-11-17] MEDS: APIXABAN 2.5 MG TAB PO SCH (08:00)
[2020-11-17] MEDS: GABAPENTIN 400 MG CAP PO SCH (08:00)
[2020-11-17] MEDS: AMIODARONE 200 MG TAB PO SCH (08:01)
[2020-11-17] MEDS: GLUCOSAMINE SULFATE 500 MG CAP PO SCH (08:01)
[2020-11-17] MEDS: FERROUS SULFATE 325 MG TAB PO SCH (08:01)
[2020-11-17] MEDS: METHOCARBAMOL 500 MG TABLET PO SCH (08:01)
[2020-11-17] MEDS: CALCIUM 600MG + VIT D 400 IU TAB PO SCH (08:01)
[2020-11-17] MEDS: INSULIN GLARGINE SOLOSTAR 100 UNITS/ML 3 ML PEN SC SCH (08:27)
[2020-11-17] MEDS: INSULIN ASPART 100 UNITS/ML 3 ML PEN SC SCH ×2 (08:28→12:16)
[2020-11-17 08:52] LABS: BUN Creatinine Ratio 22.3 (10-20); Calcium 8.5 mg/dl (8.5-10.1); Creatinine Clr Calc Pharmacy 39.9 ml/min; Est GFR (African American) 48.6; Potassium 4.1 mmol/L (3.5-5.1)
--- NOTE | 2020-11-17 11:27 | Hospitalist Progress Note ---
Date of Service November 17, 2020 Assessment & Plan (1) Acute hyperglycemia: Present on admission with Hyperglycemia, weakness and increased urinary frequency BS on admission 802 Pt was started on IV insulin drip and IVF Pharmacy on board for glycemic management Case discussed with pharmacy that recommended Lantus 40 units subq on discharge Insulin cost checked for patient - less than $10 dollars per month- pt said that he will be able to afford it Continue monitor BS Acute kidney injury on chronic kidney disease stage III, Creatinine on admission 2.7, baseline creatinine around 2 Mostly due to dehydration due to elevate BS Received IVF Continue to hold diuretic due to JOO Creatinine 1.5 today Continue to avoid nephrotoxic agents. 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 S/P AICD Continue Toprol-XL Continue Stable Familial transthyretin amyloid cardiomyopathy: Continue patisiran infusion and Vyndamax Cardiology on board Torsemide and metolazone Involuntary jerky movements Tremors Might be related to metabolic etiology due to high glucose vs narcotic Neuro was consulted and recommended no additional testing Follow up with neuro outpatient in 4-6 weeks If jerking movement reoccur plan to get EEG outpatient and possible starting on Keppra Continue monitor Weakness Mostly related to dehydration due to elevate glucose PT/OT eval Fall precaution Pt was advised to use assistance device to ambulate History of paroxysmal atrial fibrillation Rate control with with amiodarone and metoprolol Continue Eliquis Gastroesophageal reflux disease. Continue Protonix. Chronic pain syndrome. Continue his home pain medications. Deep venous thrombosis prophylaxis on Eliquis. Disposition Discharge home today Admission and Anticipated Discharge Date Admission Date: November 14, 2020 Subjective Pt was seen and examined for follow up of weakness and elevated BS Lying in bed with no distress Pt said that he feels much better today He said that he was able to ambulate with therapy today He said that the intermittent tremor or jerking movement improve significantly Denies any chest pain, palpitation, dizziness and SOB Review of Systems Review of Systems: All systems reviewed & are unremarkable except as noted in Subjective Physical Exam Physical Exam: General- No acute distress Head- atraumatic Eyes- PERRL, EOMI, ENT- oropharynx clear Neck- supple, no JVD Lungs- clear to auscultation Heart- regular rhythm; +murmur Abdomen- normal bowel sounds, soft, nontender Extremities- no calf tenderness Neuro- alert, oriented x 3; PERRL, EOMI; no facial palsy; no dysarthria Skin- warm & dry Results & Data Results & Data ([facility]) Vital Signs (Past 12 Hours) Vital Signs Temp Pulse Pulse Resp BP Pulse Ox 11/17/20 07:50 106/74 11/17/20 07:40 36.5 C 60 16 88/56 L 95 11/17/20 07:30 60 11/17/20 04:15 36.6 C 60 18 97/63 L 97 11/17/20 00:33 60
--- NOTE | 2020-11-20 23:43 | Discharge Summary ---
Date of Service November 17, 2020 Admission HPI Per Admitting Provider CHIEF COMPLAINT: Weakness and illness. 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 The patient lives alone, ambulates with a walker, comes because of weakness in the last 1 week. He says his legs are very weak. He is not able to ambulate. He is having dry mouth and also having increased micturition and he came to the ER and found to have blood sugars in the 800s. The patient has history of diabetes. He said he took metformin for 4 years, but it was stopped because his diabetes came under control. Otherwise, denies any other complaints. Denies any nausea, vomiting. No abdominal pain, somewhat constipated. Denied any blood in stools. Denies any hematuria or burning micturition. Denies any fever, no cough, no chest pain, no shortness of breath, no headache, no blurred vision, no earache, no runny nose, no sore throat. He says his appetite is okay. No dysphagia. Currently, hemodynamics are stable. SARS-CoV-2 PCR is negative. The patient said he did not receive his COVID shot yet. Admission Exam Per Admitting Provider GENERAL: The patient is of moderate build, not in acute distress. VITAL SIGNS: Temperature 36.4, pulse 60, respiratory rate 18, blood pressure 109/61, oxygen 96% on room air. HEENT: Pupils equal, round, reactive to light. Oral mucosa dry. NECK: No JVD, no neck masses. CARDIOVASCULAR: S1, S2, regular rate and rhythm, no murmur, no gallop. RESPIRATORY SYSTEM: Normal AP diameter. No accessory muscle use. No wheezing, no crackles. ABDOMEN: Soft, bowel sounds present, nontender. No distention. CENTRAL NERVOUS SYSTEM: Cranial nerves II-XII grossly intact. Nonfocal. EXTREMITIES: No edema, no erythema. 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 Chronic pain syndrome. Discharge Exam General- No acute distress Head- atraumatic Eyes- PERRL, EOMI, ENT- oropharynx clear Neck- supple, no JVD Lungs- clear to auscultation Heart- regular rhythm; +murmur Abdomen- normal bowel sounds, soft, nontender Extremities- no calf tenderness Neuro- alert, oriented x 3; PERRL, EOMI; no facial palsy; no dysarthria Skin- warm & dry Discharge Data Allergies Allergy/AdvReac Type Severity Reaction Status Date / Time No Known Allergies Allergy Mild Verified 11/14/20 01:03 Consultations 11/14/20 08:00 Consult Cardiology Routine 11/15/20 08:57 Consult Neurology Routine Ordered Studies XR chest 1V portable HISTORY: 79 years-old Male weakness acute weakness COMPARISON: Chest radiograph 07/21/2020 TECHNIQUE: Portable AP view of the chest FINDINGS: Cardiac silhouette is enlarged, unchanged. Left subclavian pacer/AICD. Calcified plaque of the thoracic aorta. No pneumothorax, pleural effusion, airspace consolidation or overt pulmonary edema. Mid thoracic dextroscoliosis. Bones of the chest appear grossly intact. IMPRESSION: Cardiomegaly without acute process. ACT 112: Negative or not required by law. The above report was generated using voice recognition software. It may contain grammatical, syntax or spelling errors. Electronically signed by: Leland Phelps M.D. 11/14/2020 6:56 AM Dictated: 11/14/20 0655Transcribed: 11/14/20 0655 Diabetes Follow up Diabetes Follow-up Needed for HgbA1c >9% Hospital Course (1) Acute hyperglycemia: Present on admission with Hyperglycemia, weakness and increased urinary frequency BS on admission 802 Pt was started on IV insulin drip and IVF Pharmacy on board for glycemic management Case discussed with pharmacy that recommended Lantus 40 units subq on discharge Insulin cost checked for patient - less than $10 dollars per month- pt said that he will be able to afford it Continue monitor BS Acute kidney injury on chronic kidney disease stage III, Creatinine on admission 2.7, baseline creatinine around 2 Mostly due to dehydration due to elevate BS Received IVF Continue to hold diuretic due to JOO Creatinine 1.5 today Continue to avoid nephrotoxic agents. 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 S/P AICD Continue Toprol-XL Continue Stable Familial transthyretin amyloid cardiomyopathy: Continue patisiran infusion and Vyndamax Cardiology on board Torsemide and metolazone Involuntary jerky movements Tremors Might be related to metabolic etiology due to high glucose vs narcotic Neuro was consulted and recommended no additional testing Follow up with neuro outpatient in 4-6 weeks If jerking movement reoccur plan to get EEG outpatient and possible starting on Keppra Continue monitor Weakness Mostly related to dehydration due to elevate glucose PT/OT eval Fall precaution Pt was advised to use assistance device to ambulate History of paroxysmal atrial fibrillation Rate control with with amiodarone and metoprolol Continue Eliquis Gastroesophageal reflux disease. Continue Protonix. Chronic pain syndrome. Continue his home pain medications. Deep venous thrombosis prophylaxis on Eliquis. Disposition Discharge home today Total Time Total Time Spent Total Time Spent (In Minutes): 35 minutes Total Time Includes: Examination of the Patient, Discharge Planning, Medication Reconciliation, Communication With Other Providers and Other Discharge Plan Discharge Items Patient Disposition: Home - Self-Care Reason For Visit: WEAKNESS, ILLNESS Discharge Diagnosis: Hyperglycemia, diabetes mellitus type 2, Weakness Condition on Discharge: Fair Activity: Resume your previous activity Non-emergency contact: Primary Care Provider Call non-emergency contact if: you have any medication questions Follow-up/Referrals: Gerhard Jimenez MD [Primary Care Provider] - (Date & Time 11/22/2020 11:00 AM Provider Gerhard Jimenez MD Department [facility] ) Diet: Carb Consistent or DM2 Addtl Attending Provider Instructions: Follow up with your primary care provider Dr. Jimenez on 11/22/2020 @ 11:00 AM Follow up with neurology Dr. Casey or his colleague in 4 to 6 weeks Check BMP in 1 week to monitor your renal function and electrolytes Continue monitor your blood sugar and bring your blood sugar log at your next appointment with your provider Your provider will titrate your insulin if needed Follow up a low carb diet and limited concentrated sweet intake Fall precaution Pending Studies at Discharge: No Stand-Alone Forms: My [facility], Smoking Cessation Medications and DC Order Prescriptions: New Lantate Brownostar U-100 Insulin 100 unit/mL (3 mL) Insulin Pen 40 unit SC DAILY Qty: 15 RF: 0 (DME) pen needle,diabetic, disp unit 32 gauge x 5/32" needle See Rx Instructions .ROUTE .MEDSUPPLY Qty: 100 RF: 0 Continued methocarbamol 500 mg tablet 500 mg PO BID Qty: 90 RF: 0 metoprolol succinate [Toprol XL] 25 mg Tablet Extended Release 24 Hr 25 mg PO BID RF: 0 amiodarone 200 mg Tablet 200 mg PO QAM RF: 0 Eliquis 2.5 mg tablet 2.5 mg PO Q12H Qty: 60 RF: 3 ferrous sulfate [iron] 325 mg (65 mg iron) Tablet 325 mg PO QAM RF: 0 glucosamine-chondroitin [Cidaflex] 500-400 mg Tablet 1 tab PO QAM RF: 0 oxycodone [Roxicodone] 5 mg tablet 5 mg PO Q6H PRN (Reason: Pain) RF: 0 metolazone 2.5 mg tablet 2.5 mg PO 2XWK RF: 0 torsemide 20 mg tablet 40 mg PO QAM RF: 0 cetirizine [Zyrtec] 10 mg Tablet 10 mg PO DAILY PRN (Reason: ON DAYS PRIOR TO PATISIRAN) RF: 0 gabapentin 400 mg capsule 400 mg PO BID RF: 0 omeprazole 20 mg Capsule,Delayed Release(Dr/Ec) 20 mg PO BID RF: 0 potassium chloride 10 mEq tablet,ER particles/crystals 20 meq PO UD RF: 0 green tea extract 375 mg Capsule 0 mg PO DAILY RF: 0 calcium carbonate-vitamin D3 [Calcium 500 + D] 500 mg(1,250mg) -200 unit Tablet 1 tab PO DAILY RF: 0 patisiran (lipid complex) 2 mg/mL Solution 0 mg IV .[id number] RF: 0 tafamidis 61 mg Capsule 61 mg PO DAILY RF: 0 alfuzosin [Uroxatral] 10 mg tablet extended release 24 hr 10 mg PO QAM RF: 0 Discharge Orders: Discharge Order (Routine); Ordered 11/17/20 Ordered By: Ryan Álvarez Admission Data Admit Date/Time: 11/14/20 02:19 Attending Provider: Ryan Álvarez Admit Provider: Pardeep Law Primary Care Provider: Gerhard Jimenez Other Providers: Gustabo Llamas ; Stanton Casey ; Sav Norwood Other Interventions: Discharge Summary Assessment (RN) Last Done: 11/17/20 13:42
== END 2020-11-17 15:44 | disposition home or self-care (01) | DRG 638 ==
LOC: ED 23:30 → SUATTDRO 11-14 02:19 → 2W 11-14 02:19

== ENCOUNTER 2021-03-01 09:36 | Inpatient (IN) ==
[2021-03-01 10:56] LABS: Basophils # (auto) 0.02 K/uL (0-0.2); Basophils % (auto) 0.3 %; Eosinophils # (auto) 0.02 K/uL (0-0.5); Eosinophils % (auto) 0.3 %; Hematocrit (blood only) 44.7 % (42-52); Hemoglobin 15.3 g/dL (14.0-18.0); Immature Granulocytes # (auto) 0.02 K/uL (0.00-0.02); Immature Granulocytes % (auto) 0.3 %; Lymphocytes # (auto) 1.17 K/uL (1.2-3.4); Lymphocytes % (auto) 16.8 %; Mean Corpuscular Hgb Conc 34.2 g/dL (32-36); Mean Corpuscular Volume 81.9 fL (80-100); Mean Platelet Volume 10.3 fL (7.4-10.4); Monocytes # (auto) 1.28 K/uL (0.11-0.59); Monocytes % (auto) 18.4 %; Neutrophils # (auto) 4.45 K/uL (1.4-6.5); Neutrophils % (auto) 63.9 %; Platelet Count 184 K/uL (130-400); RDW Coefficient of Variation 18.2 % (11.5-14.5); RDW Standard Deviation 53.9 fL (36.4-46.3); Red Blood Count 5.46 M/uL (4.7-6.1); White Blood Count 6.96 K/uL (4.8-10.8)
[2021-03-01 10:58] LABS: INR 1.5 (0.9-1.1); Partial Thromboplastin Ratio 1.3; Partial Thromboplastin Time 34.2 Seconds (21.0-31.0); Prothrombin Time 15.2 Seconds (9.0-12.0)
--- NOTE | 2021-03-01 11:12 | CT Scan Report ---
CT SCAN OF THE ABDOMEN AND PELVIS WITHOUT CONTRAST CLINICAL HISTORY: Lower abdominal pain, nausea. Decreased appetite. Weight loss. COMPARISON STUDY: CT scan performed September 2019 TECHNIQUE: CT scan of the abdomen and pelvis was performed from the lung bases to the proximal femurs . Images are reviewed in the axial, sagittal, and coronal planes. IV contrast was not administered fo r this examination. A dose lowering technique was utilized adhering to the principles of ALARA. CT DOSE: 444.95 mGy.cm FINDINGS: Lower chest: There is a moderate right pleural effusion. There are right basilar airspace opacities, likely representing compressive atelectasis. The heart is enlarged. Liver: There is trace perihepatic fluid. No focal hepatic masses are visualized. Gallbladder: The gallbladder is distended with minimal pericholecystic edema. No calculi are visualiz ed on CT scanning. Correlation with a gallbladder ultrasound might be considered in follow-up. Spleen: Normal in size and attenuation. Pancreas: Unremarkable. Adrenal glands: There is bilateral adrenal gland thickening Kidneys: Left renal hypodensities statistically represent cysts. There is a mildly dilated left-sided extrarenal pelvis. No ureteral or bladder calculi are visualized. Bowel: There are no transition zones to indicate bowel obstruction. There is no evidence of acute div erticulitis. By history the appendix is surgically absent. Peritoneum: There is low volume ascites. There is ascitic fluid within a left inguinal hernia. There is no free intraperitoneal air. There is mild generalized mesenteric edema. Vasculature: There are aortoiliac atheromatous changes. There is no evidence of abdominal aortic aneu rysm. Adenopathy: None. Pelvic viscera: The prostate is enlarged. There is mild bladder wall thickening. Skeletal structures: Postsurgical changes are present within the lumbar spine. There is a grade 2/4 s pondylolisthesis of L3 and L4. There are discogenic endplate erosive changes. IMPRESSION: 1. Examination limited due to the lack of intravenous and oral contrast 2. Moderate right pleural effusion with associated right lower lobe atelectasis/consolidation 3. Low volume ascites 4. No evidence of bowel obstruction. No evidence of free air 5. Mildly distended gallbladder with mild pericholecystic edema. No calculi visualized. Clinical ru elation with regards to cholecystitis recommended. Biliary ultrasound might be considered in follow-up. 6. Prostatomegaly and mild bladder wall thickening ACT 112: Negative or not required by law. Electronically signed by: Sriram Payne M.D. 03/01/2021 11:10 AM
--- NOTE | 2021-03-01 11:15 | Emergency Department Note ---
Impression & Plan Acute kidney injury, Abdominal pain ED Provider Note NAME: Ernestina MARES AGE: 80 SEX: M : 1940 ARRIVES VIA: Walk-In INFORMANT: Patient, ED PROVIDER(S): Lobito Lopez DO CHIEF COMPLAINT: Abdominal pain HPI: The patient is an 80-year-old male who presented to the emergency department for an evaluation of abdominal pain. The patient has a history of low back pain. He has been experiencing low back pain recently. He states this is not new for him and he was not overly concerned but then he started having lower abdominal pain. He also describes abdominal fullness and weight loss. He denies having any nausea or vomiting. He notices no black or bloody bowel movements. The patient did not see his family doctor for the symptoms. He states it has been worsening over the course the last 2 to 3 days. He states the pain is worsened with ambulation. He does complain of lower extremity swelling which is not new. The patient describes no chest pain. He does describe some difficulty breathing especially with ambulation. ROS: See above HPI for pertinent positives & negatives. A total of 10 systems reviewed and were otherwise negative. PAST MEDICAL HISTORY: See Below PAST SURGICAL HISTORY: See Below FAMILY HISTORY: See Below SOCIAL HISTORY: See Below HOME MEDICATIONS: See Below ALLERGIES: See Below VITALS: See Below PHYSICAL EXAMINATION: GENERAL: Patient is awake alert in no acute distress patient is resting comfortably and showing no signs of anxiety EYES: The conjunctivae are clear. The pupils are round and reactive. EARS, NOSE, MOUTH AND THROAT: The nose is without any evidence of any deformity. NECK: The neck is nontender and supple. RESPIRATORY: Diminished breath sounds are noted at both bases, right greater than left. There is no tachypnea or conversational dyspnea. CARDIOVASCULAR: Regular rate and rhythm noted there no murmurs rubs or gallops normal S1 normal S2. GASTROINTESTINAL: The abdomen is moderately distended. There is diffuse tenderness to palpation but no guarding rigidity. MUSCULOSKELETAL/EXTREMITIES: There is no evidence of gross deformity full range of motion is noted in the hips and shoulders. SKIN: Bilateral pedal edema was noted. NEUROLOGIC: Patient is awake alert and oriented x3. MEDICAL DECISION MAKING: The patient is a 80-year-old male who presented to the emergency department for an evaluation of abdominal pain. The patient had diffuse abdominal pain with abdominal distention. He does have multiple other problems including cardiac issues. I discussed the patient's laboratory and radiographic studies with him. He was treated with IV fluids in the emergency department. He was able to drink without too much difficulty. He was found to have a very high elevation in his creatinine compared to baseline. He was treated with IV fluids and I discussed his case with the on-call [facility] group. They have agreed to evaluate the patient in the emergency department for further management and disposition. The patient's physical exam was not consistent with an acute surgical abdomen. I do not feel the patient's findings on CT definitely reflect gallbladder pathology but he may require further work-up to rule this out. Triage Nursing notes reviewed. Prior medical records reviewed Vital Signs: reviewed and remarkable for no significant abnormalities Differential diagnosis: Etiologies such as appendicitis, diverticulitis, obstruction, inflammatory bowel disease, renal colic, PUD, biliary pathology, pancreatitis, mesenteric ischemia, aortic pathology, infections, genitourinary, UTI, perforated viscus, as well as others were entertained. ER treatment provided: See below Diagnostics interpreted by me: ECG: EKG was obtained in the emergency department. My interpretation is atrial fibrillation at 76 bpm. Left bundle branch block was noted. There were no PVCs noted. This was compared to a tracing from November 142020. Atrial fibrillation has replaced electronic paced rhythm. Cardiac Monitoring: An order was placed for continuous cardiac monitoring. The monitor shows a rate of 82 bpm with atrial fibrillation rhythm. Laboratory studies: As stated above and show below. Imaging studies: See below Consultation(s): 1347: I discussed this case with Mariann who is on-call for the [facility] group. They will evaluate the patient in the emergency department for further management. Past Med/Surg History Medical History Atrial fibrillation "A.Flutter" onset March 2019 BPH (benign prostatic hyperplasia) Cardiac amyloidosis Chronic back pain Chronic combined systolic and diastolic CHF (congestive heart failure) CKD (chronic kidney disease), stage III Seen in ED on 02/03 for acute dehydration/JOO. Baseline Cr noted to be around 2.0, was elevate at 2.7. Congestive heart failure Degenerative disc disease Diabetes mellitus, type II monitoring higher glucose lab testing, possibly related to medication changes in 2019. to have rechecked. following with PCP. Diverticular disease GERD (gastroesophageal reflux disease) History of cardioversion 05/08/19 DONE AT [facility] History of recent fall 07/2020, treated at [facility] Emergency Room. unsure why he fell, may have "passed out?". broken wrist-->casted, no surgical intervention. Hx of atrial flutter 2015 [facility] per medical record Hyperlipidemia Hypertension ICD (implantable cardioverter-defibrillator) in place IMPLANTED 05/30 [employer] (DR. BYRANT) On anticoagulant therapy Osteoarthritis Scoliosis Spinal stenosis Surgical History History of appendectomy History of arthroscopy RT SHOULDER History of back surgery LUMBAR SPINE History of cardiac cath SUMMER 2017 - [facility] - REASON? - NO STENTS/ANGIOPLASTY - DR. BRYANT History of cardioversion 2018 & 01/2020 ([facility]) History of carpal tunnel release BL History of cataract surgery RT/LEFT History of colonoscopy History of esophagogastroduodenoscopy (EGD) History of tooth extraction S/P cardiac pacemaker procedure ICD placed 2018 (Dr Bryant) S/P epidural steroid injection Lumbar Family History Mother FHx: breast cancer Grandmother (Paternal) FHx: stroke Grandmother (Paternal) FHx: myocardial infarction Father Kidney disease ESRD due to DM. 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 Feels Safe at Home: Yes Assistive Devices: Cane Allergies Allergies Allergy/AdvReac Type Severity Reaction Status Date / Time No Known Allergies Allergy Mild Verified 11/14/20 01:03 Home Meds Home Medications Medication Instructions Recorded Confirmed ferrous sulfate 325 mg (65 mg 325 mg PO QAM 09/17/18 03/01/21 iron) tablet (iron) glucosamine-chondroitin 500 mg-400 1 tab PO QAM 09/17/18 03/01/21 mg tablet (Cidaflex) metoprolol succinate 25 mg 25 mg PO BID 05/05/19 03/01/21 tablet,extended release 24 hr (Toprol XL) methocarbamol 500 mg tablet 500 mg PO BID #90 tab 05/17/19 03/01/21 oxycodone 5 mg tablet (Roxicodone) 5 mg PO Q6H PRN 09/17/19 03/01/21 amiodarone 200 mg tablet 200 mg PO QAM 02/09/20 03/01/21 alfuzosin 10 mg tablet,extended 10 mg PO QAM 10/18/20 03/01/21 release 24 hr (Uroxatral) calcium carbonate 500 mg (1,250 1 tab PO DAILY 11/14/20 03/01/21 mg)-vitamin D3 200 unit tablet (Calcium 500 + D) gabapentin 400 mg capsule 400 mg PO BID 11/14/20 03/01/21 green tea extract 375 mg capsule 0 mg PO DAILY 11/14/20 03/01/21 metolazone 2.5 mg tablet 2.5 mg PO 2XWK 11/14/20 03/01/21 omeprazole 20 mg capsule,delayed 20 mg PO BID 11/14/20 03/01/21 release patisiran (lipid complex) 2 mg/mL 0 mg IV .[id number] 11/14/20 03/01/21 intravenous solution potassium chloride 10 mEq 20 meq PO UD 11/14/20 03/01/21 tablet,extended release(part/cryst) tafamidis 61 mg capsule 61 mg PO DAILY 11/14/20 03/01/21 torsemide 20 mg tablet 40 mg PO QAM 11/14/20 03/01/21 insulin glargine 100 unit/mL (3 20 unit SC DAILY 03/01/21 03/01/21 mL) subcutaneous pen (Lantus Solostar U-100 Insulin) Previous Rx's Medication Instructions Recorded apixaban 2.5 mg tablet (Eliquis) 2.5 mg PO Q12H #60 tab 02/09/20 pen needle,diabetic, disp unit 32 #100 ea 11/17/20 gauge x 5/32", remover and disposal unit Results & Data (ED) Vital Signs Vital Signs - 24 hr 03/01/21 09:47 03/01/21 10:02 03/01/21 10:15 Temperature 36.6 C Temperature Source Skin Pulse Rate 83 90 82 Pulse Rate from SpO2 Sensor Respiratory Rate 18 21 20 Blood Pressure 106/70 Blood Pressure Mean 82 Pulse Oximetry 96 Sepsis Recent Fever Within 48 Hours No Sepsis New/Unexplained Change in Mental Status No Sepsis Action Taken by Nursing No Action Required 03/01/21 10:30 03/01/21 10:51 03/01/21 11:00 Temperature Temperature Source Pulse Rate 86 89 80 Pulse Rate from SpO2 Sensor 90 Respiratory Rate 21 Blood Pressure 104/75 Blood Pressure Mean 84 Pulse Oximetry 94 Sepsis Recent Fever Within 48 Hours Sepsis New/Unexplained Change in Mental Status Sepsis Action Taken by Nursing 03/01/21 12:00 03/01/21 13:00 03/01/21 14:01 Temperature Temperature Source Pulse Rate 75 79 70 Pulse Rate from SpO2 Sensor 80 Respiratory Rate 21 12 18 Blood Pressure 110/78 100/71 96/73 L Blood Pressure Mean 88 80 80 Pulse Oximetry 94 Sepsis Recent Fever Within 48 Hours Sepsis New/Unexplained Change in Mental Status Sepsis Action Taken by Nursing 03/01/21 15:00 03/01/21 15:23 03/01/21 16:01 Temperature Temperature Source Pulse Rate 79 75 85 Pulse Rate from SpO2 Sensor 78 67 Respiratory Rate Blood Pressure 103/84 97/76 L 99/72 L Blood Pressure Mean 90 83 81 Pulse Oximetry 90 99 Sepsis Recent Fever Within 48 Hours Sepsis New/Unexplained Change in Mental Status Sepsis Action Taken by Nursing 03/01/21 16:56 03/01/21 17:00 03/01/21 17:30 Temperature Temperature Source Pulse Rate 75 78 82 Pulse Rate from SpO2 Sensor Respiratory Rate 20 17 14 Blood Pressure 105/76 101/78 Blood Pressure Mean 85 85 Pulse Oximetry Sepsis Recent Fever Within 48 Hours Sepsis New/Unexplained Change in Mental Status Sepsis Action Taken by [facility] Medications Current Medication List: was personally reviewed by me Laboratory Data Attestation: I reviewed the patient's lab results. Result diagrams: 03/01/21 10:10 03/01/21 10:10 Lab Results 03/01/21 03/01/21 03/01/21 Range/Units 10:10 10:10 10:10 WBC 6.96 (4.8-10.8) K/uL RBC 5.46 (4.7-6.1) M/uL Hgb 15.3 (14.0-18.0) g/dL Hct 44.7 (42-52) % MCV 81.9 (80-100) fL MCH 28.0 (25-34) pg MCHC 34.2 (32-36) g/dL RDW Std Deviation 53.9 H (36.4-46.3) fL RDW Coeff of Daria 18.2 H (11.5-14.5) % Plt Count 184 (130-400) K/uL MPV 10.3 (7.4-10.4) fL Immature Gran % (Auto) 0.3 % Neut % (Auto) 63.9 % Lymph % (Auto) 16.8 % Nuckolls % (Auto) 18.4 % Eos % (Auto) 0.3 % Baso % (Auto) 0.3 % Neut # (Auto) 4.45 (1.4-6.5) K/uL Lymph # (Auto) 1.17 L (1.2-3.4) K/uL Nuckolls # (Auto) 1.28 H (0.11-0.59) K/uL Eos # (Auto) 0.02 (0-0.5) K/uL Baso # (Auto) 0.02 (0-0.2) K/uL Immature Gran # (Auto) 0.02 (0.00-0.02) K/uL PT 15.2 H (9.0-12.0) Seconds INR 1.5 H (0.9-1.1) APTT 34.2 H (21.0-31.0) Seconds PTT Ratio 1.3 Sodium 135 L (136-145) mmol/L Potassium 3.9 (3.5-5.1) mmol/L Chloride 97 L (98-107) mmol/L Carbon Dioxide 31 (21-32) mmol/L Anion Gap 7.0 (3-11) BUN 51 H (7-18) mg/dl Creatinine 3.43 H (0.6-1.4) mg/dl Est Cr Clr Drug Dosing 17.7 ml/min Est GFR ( Amer) 18.5 ml/min Est GFR (Non-Af Amer) 15.9 ml/min BUN/Creatinine Ratio 15.0 (10-20) Glucose 52 L* (70-99) mg/dl POC Glucose (70-99) mg/dl Calcium 9.1 (8.5-10.1) mg/dl Total Bilirubin 1.4 H (0.2-1) mg/dl AST 30 (15-37) U/L ALT 33 (12-78) U/L Alkaline Phosphatase 93 (45-117) U/L Troponin I 0.104 H* (0-0.045) ng/ml Total Protein 7.0 (6.4-8.2) gm/dl Albumin 3.7 (3.4-5.0) gm/dl Globulin 3.3 (2.5-4.0) gm/dl Albumin/Globulin Ratio 1.1 (0.9-2) Lipase 55 L (73-393) U/L Urine Color Urine Appearance (Clear) Urine pH (4.5-7.5) Ur Specific [place] (1.000-1.030) Urine Protein (Negative) Urine Glucose (UA) (Negative) Urine Ketones (Negative) Urine Blood (Negative) Urine Nitrite (Negative) Urine Bilirubin (Negative) Urine Urobilinogen (Negative) Ur Leukocyte Esterase (Negative) COVID-19 Eval Order SARS-CoV-2 (PCR) (Negative) 03/01/21 03/01/21 03/01/21 Range/Units 13:59 13:59 16:00 WBC (4.8-10.8) K/uL RBC (4.7-6.1) M/uL Hgb (14.0-18.0) g/dL Hct (42-52) % MCV (80-100) fL MCH (25-34) pg MCHC (32-36) g/dL RDW Std Deviation (36.4-46.3) fL RDW Coeff of Daria (11.5-14.5) % Plt Count (130-400) K/uL MPV (7.4-10.4) fL Immature Gran % (Auto) % Neut % (Auto) % Lymph % (Auto) % Nuckolls % (Auto) % Eos % (Auto) % Baso % (Auto) % Neut # (Auto) (1.4-6.5) K/uL Lymph # (Auto) (1.2-3.4) K/uL [place]oll[place] # (Auto) (0.11-0.59) K/uL Eos # (Auto) (0-0.5) K/uL Baso # (Auto) (0-0.2) K/uL Immature Gran # (Auto) (0.00-0.02) K/uL PT (9.0-12.0) Seconds INR (0.9-1.1) APTT (21.0-31.0) Seconds PTT Ratio Sodium (136-145) mmol/L Potassium (3.5-5.1) mmol/L Chloride (98-107) mmol/L Carbon Dioxide (21-32) mmol/L Anion Gap (3-11) BUN (7-18) mg/dl Creatinine (0.6-1.4) mg/dl Est Cr Clr Drug Dosing ml/min Est GFR ( Amer) ml/min Est GFR (Non-Af Amer) ml/min BUN/Creatinine Ratio (10-20) Glucose (70-99) mg/dl POC Glucose (70-99) mg/dl Calcium (8.5-10.1) mg/dl Total Bilirubin (0.2-1) mg/dl AST (15-37) U/L ALT (12-78) U/L Alkaline Phosphatase (45-117) U/L Troponin I (0-0.045) ng/ml Total Protein (6.4-8.2) gm/dl Albumin (3.4-5.0) gm/dl Globulin (2.5-4.0) gm/dl Albumin/Globulin Ratio (0.9-2) Lipase (73-393) U/L Urine Color Yellow Urine Appearance Clear (Clear) Urine pH 6.0 (4.5-7.5) Ur Specific [place] 1.013 (1.000-1.030) Urine Protein Negative (Negative) Urine Glucose (UA) Negative (Negative) Urine Ketones Negative (Negative) Urine Blood Negative (Negative) Urine Nitrite Negative (Negative) Urine Bilirubin Negative (Negative) Urine Urobilinogen Negative (Negative) Ur Leukocyte Esterase Negative (Negative) COVID-19 Eval Order Covid19 at [facility] SARS-CoV-2 (PCR) NEGATIVE (Negative) 03/01/21 03/01/21 Range/Units 16:14 16:57 WBC (4.8-10.8) K/uL RBC (4.7-6.1) M/uL Hgb (14.0-18.0) g/dL Hct (42-52) % MCV (80-100) fL MCH (25-34) pg MCHC (32-36) g/dL RDW Std Deviation (36.4-46.3) fL RDW Coeff of Daria (11.5-14.5) % Plt Count (130-400) K/uL MPV (7.4-10.4) fL Immature Gran % (Auto) % Neut % (Auto) % Lymph % (Auto) % Nuckolls % (Auto) % Eos % (Auto) % Baso % (Auto) % Neut # (Auto) (1.4-6.5) K/uL Lymph # (Auto) (1.2-3.4) K/uL [place] # (Auto) (0.11-0.59) K/uL Eos # (Auto) (0-0.5) K/uL Baso # (Auto) (0-0.2) K/uL Immature Gran # (Auto) (0.00-0.02) K/uL PT (9.0-12.0) Seconds INR (0.9-1.1) APTT (21.0-31.0) Seconds PTT Ratio Sodium (136-145) mmol/L Potassium (3.5-5.1) mmol/L Chloride (98-107) mmol/L Carbon Dioxide (21-32) mmol/L Anion Gap (3-11) BUN (7-18) mg/dl Creatinine (0.6-1.4) mg/dl Est Cr Clr Drug Dosing ml/min Est GFR ( Amer) ml/min Est GFR (Non-Af Amer) ml/min BUN/Creatinine Ratio (10-20) Glucose (70-99) mg/dl POC Glucose 64 L* 74 (70-99) mg/dl Calcium (8.5-10.1) mg/dl Total Bilirubin (0.2-1) mg/dl AST (15-37) U/L ALT (12-78) U/L Alkaline Phosphatase (45-117) U/L Troponin I (0-0.045) ng/ml Total Protein (6.4-8.2) gm/dl Albumin (3.4-5.0) gm/dl Globulin (2.5-4.0) gm/dl Albumin/Globulin Ratio (0.9-2) Lipase (73-393) U/L Urine Color Urine Appearance (Clear) Urine pH (4.5-7.5) Ur Specific [place] (1.000-1.030) Urine Protein (Negative) Urine Glucose (UA) (Negative) Urine Ketones (Negative) Urine Blood (Negative) Urine Nitrite (Negative) Urine Bilirubin (Negative) Urine Urobilinogen (Negative) Ur Leukocyte Esterase (Negative) COVID-19 Eval Order SARS-CoV-2 (PCR) (Negative) Administered Medications Furosemide (Furosemide 40 Mg/4 Ml Vial) 40 mg IV BID ASHLEE Stop: 03/31/21 15:14 Last Admin: 03/01/21 15:31 Dose: 40 mg Documented by: [id number] Discontinued Medications Sodium Chloride (Nss) 500 mls @ 999 mls/hr IV .Q31M ONE Stop: 03/01/21 13:47 Last Infusion: 03/01/21 15:00 Dose: 0 mls/hr Documented by: [id number] Admin: 03/01/21 14:00 Dose: 999 mls/hr Documented by: [id number] Imaging Data Radiologist's Impression: Abdomen/Pelvis CT 03/01/21 10:35 CT SCAN OF THE ABDOMEN AND PELVIS WITHOUT CONTRAST CLINICAL HISTORY: Lower abdominal pain, nausea. Decreased appetite. Weight loss. COMPARISON STUDY: CT scan performed September 2019 TECHNIQUE: CT scan of the abdomen and pelvis was performed from the lung bases to the proximal femurs. Images are reviewed in the axial, sagittal, and coronal planes. IV contrast was not administered for this examination. A dose lowering technique was utilized adhering to the principles of ALARA. CT DOSE: 444.95 mGy.cm FINDINGS: Lower chest: There is a moderate right pleural effusion. There are right basilar airspace opacities, likely representing compressive atelectasis. The heart is enlarged. Liver: There is trace perihepatic fluid. No focal hepatic masses are visualized. Gallbladder: The gallbladder is distended with minimal pericholecystic edema. No calculi are visualized on CT scanning. Correlation with a gallbladder ultrasound might be considered in follow-up. Spleen: Normal in size and attenuation. Pancreas: Unremarkable. Adrenal glands: There is bilateral adrenal gland thickening Kidneys: Left renal hypodensities statistically represent cysts. There is a mildly dilated left-sided extrarenal pelvis. No ureteral or bladder calculi are visualized. Bowel: There are no transition zones to indicate bowel obstruction. There is no evidence of acute diverticulitis. By history the appendix is surgically absent. Peritoneum: There is low volume ascites. There is ascitic fluid within a left inguinal hernia. There is no free intraperitoneal air. There is mild generalized mesenteric edema. Vasculature: There are aortoiliac atheromatous changes. There is no evidence of abdominal aortic aneurysm. Adenopathy: None. Pelvic viscera: The prostate is enlarged. There is mild bladder wall thickening. Skeletal structures: Postsurgical changes are present within the lumbar spine. There is a grade 2/4 spondylolisthesis of L3 and L4. There are discogenic endplate erosive changes. IMPRESSION: 1. Examination limited due to the lack of intravenous and oral contrast 2. Moderate right pleural effusion with associated right lower lobe atelectasis/consolidation 3. Low volume ascites 4. No evidence of bowel obstruction. No evidence of free air 5. Mildly distended gallbladder with mild pericholecystic edema. No calculi visualized. Clinical correlation with regards to cholecystitis recommended. Biliary ultrasound might be considered in follow-up. 6. Prostatomegaly and mild bladder wall thickening ACT 112: Negative or not required by law. Electronically signed by: Sriram Payne M.D. 03/01/2021 11:10 AM Chest X-Ray 03/01/21 10:35 SINGLE VIEW CHEST CLINICAL HISTORY: Generalized abdominal pain. FINDINGS: An AP, portable, upright chest radiograph is compared to study dated 11/14/2020. A 2-lead cardiac AICD is unchanged in position and partially obscures the left mid chest. The heart is enlarged noting atherosclerotic calcification of the thoracic aorta. There is pulmonary vascular congestion. There is a layering right pleural effusion with right basilar consolidation. The left lung appears clear noting basilar atelectasis. No pneumothorax is seen. The skeletal structures are osteopenic. The bony thorax is grossly intact. Scoliosis is noted in the spine. Postoperative change is seen in the right humeral head. IMPRESSION: 1. Cardiomegaly and AICD with pulmonary vascular congestion. 2. Right pleural effusion with associated right basilar consolidation. ACT 112: Negative or not required by law. Electronically signed by: Ry Johnson M.D. 03/01/2021 11:55 AM Gallbladder Ultrasound 03/01/21 15:14 US gallbladder CLINICAL HISTORY: Abdominal pain. COMPARISON STUDY: CT of the abdomen and pelvis March 01, 2021 at 10:51 AM. FINDINGS: No hepatic lesions are identified. There is no significant biliary ductal dilatation. The common bile duct measures 5 mm in caliber. Incidental note is made of a small right pleural effusion. There is trace perihepatic ascites. The gallbladder is distended. The gallbladder wall is mildly thickened. No gallstones are identified. No sonographic Guevara sign was elicited. There is a small amount of sludge within the gallbladder. Pancreas is obscured. There is no right hydronephrosis. IMPRESSION: 1. Mildly distended gallbladder with mild gallbladder wall thickening and trace sludge. No gallstones. No sonographic Guevara's sign. These findings do not strongly suggest acute cholecystitis however a hepatobiliary scan could be obtained if indicated. 2. Incidentally noted right pleural effusion. Small amount of perihepatic ascites. 3. No biliary ductal dilatation. 4. Obscured pancreas. ACT 112: Negative or not required by law. Electronically signed by: David Baldwin M.D. 03/01/2021 4:53 PM Discharge Plan Visit Data Chief Complaint: GI Assessment Stated Complaint: UNABLE TO EAT, LOSING WEIGHT, ABD PAIN ED Provider: Lobito Lopez Discharge Problem: Acute kidney injury, Abdominal pain Patient Disposition: Being Evaluated by Hospitalist Condition: Good Forms Stand Alone Forms: My [facility] Prescriptions Prescriptions: No Action methocarbamol 500 mg tablet 500 mg PO BID Qty: 90 RF: 0 metoprolol succinate [Toprol XL] 25 mg Tablet Extended Release 24 Hr 25 mg PO BID RF: 0 amiodarone 200 mg Tablet 200 mg PO QAM RF: 0 Eliquis 2.5 mg tablet 2.5 mg PO Q12H Qty: 60 RF: 3 ferrous sulfate [iron] 325 mg (65 mg iron) Tablet 325 mg PO QAM RF: 0 glucosamine-chondroitin [Cidaflex] 500-400 mg Tablet 1 tab PO QAM RF: 0 oxycodone [Roxicodone] 5 mg tablet 5 mg PO Q6H PRN (Reason: Pain) RF: 0 metolazone 2.5 mg tablet 2.5 mg PO 2XWK RF: 0 torsemide 20 mg tablet 40 mg PO QAM RF: 0 gabapentin 400 mg capsule 400 mg PO BID RF: 0 omeprazole 20 mg Capsule,Delayed Release(Dr/Ec) 20 mg PO BID RF: 0 potassium chloride 10 mEq tablet,ER particles/crystals 20 meq PO UD RF: 0 green tea extract 375 mg Capsule 0 mg PO DAILY RF: 0 calcium carbonate-vitamin D3 [Calcium 500 + D] 500 mg(1,250mg) -200 unit Tablet 1 tab PO DAILY RF: 0 patisiran (lipid complex) 2 mg/mL Solution 0 mg IV .[id number] RF: 0 tafamidis 61 mg Capsule 61 mg PO DAILY RF: 0 (DME) pen needle,diabetic, disp unit 32 gauge x 5/32" needle See Rx Instructions .ROUTE .MEDSUPPLY Qty: 100 RF: 0 alfuzosin [Uroxatral] 10 mg tablet extended release 24 hr 10 mg PO QAM RF: 0 Lantus Solostar U-100 Insulin 100 unit/mL (3 mL) insulin pen 20 unit SC DAILY RF: 0 Referrals Referrals: Gerhard Jimenez MD [Primary Care Provider] -
[2021-03-01 11:25] LABS: Albumin Level 3.7 gm/dl (3.4-5.0); Calcium 9.1 mg/dl (8.5-10.1); Potassium 3.9 mmol/L (3.5-5.1)
[2021-03-01 11:37] LABS: Creatinine Clr Calc Pharmacy 17.7 ml/min; Est GFR (African American) 18.5 ml/min; Est GFR (Non-African American) 15.9 ml/min
--- NOTE | 2021-03-01 11:56 | XRay Report ---
SINGLE VIEW CHEST CLINICAL HISTORY: Generalized abdominal pain. FINDINGS: An AP, portable, upright chest radiograph is compared to study dated 11/14/2020. A 2-lead car diac AICD is unchanged in position and partially obscures the left mid chest. The heart is enlarged n oting atherosclerotic calcification of the thoracic aorta. There is pulmonary vascular congestion. Th ere is a layering right pleural effusion with right basilar consolidation. The left lung appears horace r noting basilar atelectasis. No pneumothorax is seen. The skeletal structures are osteopenic. The [place]on[place] thorax is grossly intact. Scoliosis is noted in the spine. Postoperative change is seen in the rig ht humeral head. IMPRESSION: 1. Cardiomegaly and AICD with pulmonary vascular congestion. 2. Right pleural effusion with associated right basilar consolidation. ACT 112: Negative or not required by law. Electronically signed by: Ry Johnson M.D. 03/01/2021 11:55 AM
[2021-03-01 12:51] LABS: Albumin Globulin Ratio 1.1 (0.9-2); Bilirubin,Total 1.4 mg/dl (0.2-1); Globulin 3.3 gm/dl (2.5-4.0)
[2021-03-01 13:05] LABS: Troponin I 0.104 ng/ml (0-0.045)
[2021-03-01] MEDS ORDERED: SODIUM CHLORIDE 0.9% 500 ML IV ONE (13:17)
--- NOTE | 2021-03-01 14:05 | History & Physical Report ---
Date of Service March 01, 2021 Assessment & Plan (1) Abdominal pain: Plan: -Admit to [facility] with telemetry -CT abdomen pelvis reviewed- mildly distended gallbladder with mild pericholecystic edema., patient is not acutely tender in right upper quadrant however possible that this is currently masked as he is on oxycodone and gabapentin -Check gallbladder US stat, will consult GI pending results -Trend LFTs, INR noted to be slightly elevated, will follow -Suprapubic/umbilical abdominal pain will be evaluated with a bladder scan now x1 and then as needed -Allow clear liquid diet -No zofran as has prolonged QTc and is not nauseous -Insert Lovelace catheter due to aggressive diuresis secondary to generalized anasarca, hypervolemia, likely secondary to CHF exacerbation (2) Acute on chronic systolic heart failure: Plan: -Last 2 D echo August 2020 showed EF of 25 to 29% and grade III diastolic dysfunction --will repeat -Increased SOB at rest and on exertion, o2 sats dropping to 86-88% on RA with conversation during my exam, +crackles, absent breath sounds in R base - consider pulmonology consult for thoracentesis if doesn't improve with diuresis. -Hypervolemic -Strict I/Os, place lovelace, daily weights, unknown dry weight -IV Lasix 40 mg BID, hold home torsemide, patient reports recently off of metolazone x3 weeks due to kidney function -Consult cardiology-appreciate recs - S/P AICD -Continue Toprol-XL 25 mg BID (3) Diabetes mellitus, type II: Plan: -Was noted to be hypoglycemic with blood glucose of 60 earlier today, 52 on BMP here. 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 Lovett, following with nephro as an outpatient. 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 Mr. Givens presents with 1 week of complaints of abdominal pain in the lower/umbilical abdomen, denies associated neausea, vomiting or diarrhea. He feels increased bloating is the major issue. His appetite has also been decreased over the past week, denies sensation of food getting stuck or coughing/choking on food or liquids. He has been eating Meals on Wheels, frozen freezer meals and frozen fruits and vegetables. He denies any changes in his bowel habits, last BM was this morning, denies any dark tarry stools hematochezia, or blood streaking. Reports his last colonoscopy was about 5 years ago and was fairly normal from what he remembers. He denies any fevers or chills or sweats. Patient notes that he has become increasingly short of breath since being here in the ER and feels that his breathing is more rapid sitting at rest. He has increased swelling in both of his legs up to his knees. Metolazone had been reduced from every other day to 2 times weekly, but then 3 weeks ago stopped taking this medication altogether. He reports that his urination has decreased somewhat over the past week, feels that his torsemide does not seem to be putting out the same amount of urine.He is concerned about his kidneys and has been working with a welding teacher as an outpatient. Allergies Allergy/AdvReac Type Severity Reaction Status Date / Time No Known Allergies Allergy Mild Verified 11/14/20 01:03 Home Medications Medication Instructions Recorded Confirmed Type ferrous sulfate 325 mg (65 mg 325 mg PO QAM 09/17/18 03/01/21 History iron) tablet (iron) glucosamine-chondroitin 500 mg-400 1 tab PO QAM 09/17/18 03/01/21 History mg tablet (Cidaflex) metoprolol succinate 25 mg 25 mg PO BID 05/05/19 03/01/21 History tablet,extended release 24 hr (Toprol XL) methocarbamol 500 mg tablet 500 mg PO BID #90 tab 05/17/19 03/01/21 History oxycodone 5 mg tablet (Roxicodone) 5 mg PO Q6H PRN 09/17/19 03/01/21 History amiodarone 200 mg tablet 200 mg PO QAM 02/09/20 03/01/21 History apixaban 2.5 mg tablet (Eliquis) 2.5 mg PO Q12H #60 tab 02/09/20 03/01/21 Rx alfuzosin 10 mg tablet,extended 10 mg PO QAM 10/18/20 03/01/21 History release 24 hr (Uroxatral) calcium carbonate 500 mg (1,250 1 tab PO DAILY 11/14/20 03/01/21 History mg)-vitamin D3 200 unit tablet (Calcium 500 + D) gabapentin 400 mg capsule 400 mg PO BID 11/14/20 03/01/21 History green tea extract 375 mg capsule 0 mg PO DAILY 11/14/20 03/01/21 History metolazone 2.5 mg tablet 2.5 mg PO 2XWK 11/14/20 03/01/21 History omeprazole 20 mg capsule,delayed 20 mg PO BID 11/14/20 03/01/21 History release patisiran (lipid complex) 2 mg/mL 0 mg IV .[id number] 11/14/20 03/01/21 History intravenous solution potassium chloride 10 mEq 20 meq PO UD 11/14/20 03/01/21 History tablet,extended release(part/cryst) tafamidis 61 mg capsule 61 mg PO DAILY 11/14/20 03/01/21 History torsemide 20 mg tablet 40 mg PO QAM 11/14/20 03/01/21 History pen needle,diabetic, disp unit 32 #100 ea 11/17/20 03/01/21 Rx gauge x ", remover and disposal unit insulin glargine 100 unit/mL (3 20 unit SC DAILY 03/01/21 03/01/21 History mL) subcutaneous pen (Lantus Solostar U-100 Insulin) Past Med/Surg History Medical History Atrial fibrillation "A.Flutter" onset March 2019 BPH (benign prostatic hyperplasia) Cardiac amyloidosis Chronic back pain Chronic combined systolic and diastolic CHF (congestive heart failure) CKD (chronic kidney disease), stage III Seen in ED on 02/03 for acute dehydration/JOO. Baseline Cr noted to be around 2.0, was elevate at 2.7. Congestive heart failure Degenerative disc disease Diabetes mellitus, type II monitoring higher glucose lab testing, possibly related to medication changes in 2019. to have rechecked. following with PCP. Diverticular disease GERD (gastroesophageal reflux disease) History of cardioversion 05/08/19 DONE AT [facility] History of recent fall 07/2020, treated at [facility]. unsure why he fell, may have "passed out?". broken wrist-->casted, no surgical intervention. Hx of atrial flutter 2015 [facility] per medical record Hyperlipidemia Hypertension ICD (implantable cardioverter-defibrillator) in place IMPLANTED 05/30 [employer] (DR. BRYANT) On anticoagulant therapy Osteoarthritis Scoliosis Spinal stenosis Surgical History History of appendectomy History of arthroscopy RT SHOULDER History of back surgery LUMBAR SPINE History of cardiac cath SUMMER 2017 - [facility] - REASON? - NO STENTS/ANGIOPLASTY - DR. BRYANT History of cardioversion 2018 & 01/2020 ([facility]) History of carpal tunnel release BL History of cataract surgery RT/LEFT History of colonoscopy History of esophagogastroduodenoscopy (EGD) History of tooth extraction S/P cardiac pacemaker procedure ICD placed 2018 (Dr Bryant) S/P epidural steroid injection Lumbar Family History Mother FHx: breast cancer Grandmother (Paternal) FHx: stroke Grandmother (Paternal) FHx: myocardial infarction Father Kidney disease ESRD due to DM. 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 Cardiovascular: No chest pain, tightness or palpitations Abdomen: As per HPI, +pain, no nausea, vomiting, diarrhea or constipation. No c hanges in bowel habits. : Reports decreased output of urine Musculoskeletal: + Chronic joint pain, calf pain, + significant lower extremity swelling Neurologic: + Generalized weakness, numbness/tingling, + balance problems and needs to use walker at all times Psychiatric: No anxiety or depression Skin: No rash or itch Physical Exam Physical Exam: General: -[place] Citizen male, awake, alert, no apparent distress Head: Normocephalic, atraumatic ENT: PERRL, EOMI, no pharyngeal exudate, mucous membranes moist Chest: + Crackles throughout, absent at right base, on room air desats to 87-88% on room air, no wheeze or rhonchi Cardiac: Irregularly irregular, + ROBER, +mild JVD, normal peripheral pulses, good capillary refill Abdominal: NABS x 4 quadrants, soft, + distended,nontender to palpation, no rebound or guarding, specifically no right upper quadrant tenderness, negative Guevara sign. Extremities: 3+ pitting peripheral edema, no erythema, calfs nontender to palpation Psych: Normal mood and affect Neuro: AAO x 3, strength intact bilaterally and rated 4/5, no motor deficits, speech is clear, + quick jerking movements of limbs throughout exam. Results & Data Results & Data ([facility]) Vital Signs (Past 12 Hours) Vital Signs Temp Pulse Resp BP Pulse Ox 03/01/21 13:00 79 12 100/71 03/01/21 12:00 75 21 110/78 94 03/01/21 11:00 80 21 104/75 94 03/01/21 10:51 89 03/01/21 10:30 86 19 03/01/21 10:15 82 20 03/01/21 10:02 90 21 03/01/21 09:47 36.6 C 83 18 106/70 96 Laboratory Results Short CBC 03/01/21 Range/Units 10:10 WBC 6.96 (4.8-10.8) K/uL Hgb 15.3 (14.0-18.0) g/dL Hct 44.7 (42-52) % Plt Count 184 (130-400) K/uL BMP 03/01/21 10:10 Sodium 135 L Potassium 3.9 Chloride 97 L Carbon Dioxide 31 BUN 51 H Creatinine 3.43 H Glucose 52 L* Calcium 9.1 Cardiac Enzymes 03/01/21 03/01/21 Range/Units 10:10 19:20 Troponin I 0.104 H* 0.112 H* (0-0.045) ng/ml Liver Function 03/01/21 Range/Units 10:10 Total Bilirubin 1.4 H (0.2-1) mg/dl AST 30 (15-37) U/L ALT 33 (12-78) U/L Alkaline Phosphatase 93 (45-117) U/L Albumin 3.7 (3.4-5.0) gm/dl Urine 03/01/21 Range/Units 16:00 Urine Color Yellow Urine Appearance Clear (Clear) Urine pH 6.0 (4.5-7.5) Ur Specific Wirtz 1.013 (1.000-1.030) Urine Protein Negative (Negative) Urine Glucose (UA) Negative (Negative) Diagnostic Findings Abdomen/Pelvis CT 03/01/21 10:35 CT SCAN OF THE ABDOMEN AND PELVIS WITHOUT CONTRAST CLINICAL HISTORY: Lower abdominal pain, nausea. Decreased appetite. Weight loss. COMPARISON STUDY: CT scan performed September 2019 TECHNIQUE: CT scan of the abdomen and pelvis was performed from the lung bases to the proximal femurs. Images are reviewed in the axial, sagittal, and coronal planes. IV contrast was not administered for this examination. A dose lowering technique was utilized adhering to the principles of ALARA. CT DOSE: 444.95 mGy.cm FINDINGS: Lower chest: There is a moderate right pleural effusion. There are right basilar airspace opacities, likely representing compressive atelectasis. The heart is enlarged. Liver: There is trace perihepatic fluid. No focal hepatic masses are visualized. Gallbladder: The gallbladder is distended with minimal pericholecystic edema. No calculi are visualized on CT scanning. Correlation with a gallbladder ultrasound might be considered in follow-up. Spleen: Normal in size and attenuation. Pancreas: Unremarkable. Adrenal glands: There is bilateral adrenal gland thickening Kidneys: Left renal hypodensities statistically represent cysts. There is a mildly dilated left-sided extrarenal pelvis. No ureteral or bladder calculi are visualized. Bowel: There are no transition zones to indicate bowel obstruction. There is no evidence of acute diverticulitis. By history the appendix is surgically absent. Peritoneum: There is low volume ascites. There is ascitic fluid within a left inguinal hernia. There is no free intraperitoneal air. There is mild generalized mesenteric edema. Vasculature: There are aortoiliac atheromatous changes. There is no evidence of abdominal aortic aneurysm. Adenopathy: None. Pelvic viscera: The prostate is enlarged. There is mild bladder wall thickening. Skeletal structures: Postsurgical changes are present within the lumbar spine. There is a grade 2/4 spondylolisthesis of L3 and L4. There are discogenic endplate erosive changes. IMPRESSION: 1. Examination limited due to the lack of intravenous and oral contrast 2. Moderate right pleural effusion with associated right lower lobe atelectasis/ consolidation 3. Low volume ascites 4. No evidence of bowel obstruction. No evidence of free air 5. Mildly distended gallbladder with mild pericholecystic edema. No calculi visualized. Clinical correlation with regards to cholecystitis recommended. Biliary ultrasound might be considered in follow-up. 6. Prostatomegaly and mild bladder wall thickening ACT 112: Negative or not required by law. Electronically signed by: Sriram Payne M.D. 03/01/2021 11:10 AM Chest X-Ray 03/01/21 10:35 SINGLE VIEW CHEST CLINICAL HISTORY: Generalized abdominal pain. FINDINGS: An AP, portable, upright chest radiograph is compared to study dated 11/14/2020. A 2-lead cardiac AICD is unchanged in position and partially obscures the left mid chest. The heart is enlarged noting atherosclerotic calcification of the thoracic aorta. There is pulmonary vascular congestion. There is a layering right pleural effusion with right basilar consolidation. The left lung appears clear noting basilar atelectasis. No pneumothorax is seen. The skeletal structures are osteopenic. The bony thorax is grossly intact. Scoliosis is noted in the spine. Postoperative change is seen in the right humeral head. IMPRESSION: 1. Cardiomegaly and AICD with pulmonary vascular congestion. 2. Right pleural effusion with associated right basilar consolidation. ACT 112: Negative or not required by law. Electronically signed by: Ry Johnson M.D. 03/01/2021 11:55 AM ECG Additional Comments: 01-MAR-2021 10:55:59 [facility]-EDSTAT ROUTINE RETRIEVAL Atrial flutter with variable A-V block Left axis deviation Left bundle branch block Abnormal ECG When compared with ECG of 14-NOV-2020 05:54, Atrial flutter has replaced Electronic atrial pacemaker 25mm/s 10mm/mV 150Hz 9.0.9 12SL 241 FREIDA: 13 Referred by: REFERRED SELF Unconfirmed Vent. rate 76 BPM ME interval * ms QRS duration 162 ms QT/QTc 484/544 ms Code Status & VTE Plan Code Status Full code -discussed with the patient at bedside Supervising Physician Co-Signing Physician Notes Patient is an 80-year-old male with history of CHF, paroxysmal atrial fibrillation, amyloid cardiomyopathy, CKD stage III and other medical problems presents with history of periumbilical abdominal discomfort associated with decreased appetite and increased bloating since about 1 week duration. He admits to taking his medications regularly. Follows with [facility] cardiology. Also states having worsening shortness of breath associated with bilateral leg swelling. States having decreased urinary output, associated with bladder pressure. Reports having lower back pain. CT abdomen showed findings suggestive of moderate right pleural effusion, low volume ascites, mildly distended gallbladder with mild pericholecystic edema noted. Also noted prostatomegaly with mild bladder wall thickening. Chest x-ray showed findings suggestive of pulmonary vascular congestion and possible right basilar consolidation. He was found to be hypoglycemic 52. JOO on CKD with creatinine elevated at 3.4. Also noted chronic troponin elevation. On exam patient is chronically appearing, moderately built and nourished, no apparent distress, normocephalic atraumatic, EOMI, bilateral basal crackles, normal breath sounds, irregularly irregular rhythm,+ murmur,+ ICD, bilateral lower extremity edema, abdomen soft, distended, nontender, alert, awake, oriented, grossly no focal deficits. Patient is admitted for management of volume overload likely secondary to CHF exacerbation. Also to rule out bladder outlet obstruction. Will hold p.o. diuretics and start on IV Lasix. I's and O's, daily weight. Consult cardiology. Will bladder scan and monitor for urinary retention, and place urinary catheter as needed. Consider pulmonology evaluation for possible thoracentesis for right pleural effusion. Will liberalize insulin therapy and monitor for hypoglycemia. Will consult nephrology for JOO. Will check gallbladder ultrasound to rule out acute cholecystitis. Check procalcitonin. Repeat chest x-ray in the morning. Will consider antibiotics if needed. I personally reviewed the record. Patient is interviewed and examined at bedside. Patient's care is coordinated with Alma Elmore PA-C. Please refer to the documentation above for details of patient's presentation and for discussion of other issues.
[2021-03-01] MEDS ORDERED: FUROSEMIDE 40 MG/4 ML VIAL IV SCH (15:15)
[2021-03-01 16:17] LABS: Appearance Urine Clear (Clear); Bilirubin Urine Negative (Negative); Blood Urine Negative (Negative); Color Urine Yellow; Glucose Urine UA Negative (Negative); Ketones Urine Negative (Negative); Leukocyte Esterase Urine Negative (Negative); Nitrite Urine Negative (Negative); Protein Urine Negative (Negative); Specific Gravity Urine 1.013 (1.000-1.030); Urobilinogen Urine Negative (Negative)
--- NOTE | 2021-03-01 16:28 | Electrocardiogram Report ---
Test Reason : Blood Pressure : / mmHG Vent. Rate : 076 BPM Atrial Rate : 249 BPM P-R Int : 000 ms QRS Dur : 162 ms QT Int : 484 ms P-R-T Axes : 000 -66 111 degrees QTc Int : 544 ms Atrial flutter with variable A-V block Left axis deviation Left bundle branch block Abnormal ECG When compared with ECG of 14-NOV-2020 05:54, Atrial flutter has replaced Electronic atrial pacemaker Confirmed by Lobito Smith ([id number]) on 03/01/2021 4:27:33 PM Referred By: REFERRED SELF Confirmed By:Lobito Smith
--- NOTE | 2021-03-01 16:55 | Ultrasound Report ---
US gallbladder CLINICAL HISTORY: Abdominal pain. COMPARISON STUDY: CT of the abdomen and pelvis March 01, 2021 at 10:51 AM. FINDINGS: No hepatic lesions are identified. There is no significant biliary ductal dilatation. The c ommon bile duct measures 5 mm in caliber. Incidental note is made of a small right pleural effusion. There is trace perihepatic ascites. The gallbladder is distended. The gallbladder wall is mildly thic kened. No gallstones are identified. No sonographic Guevara sign was elicited. There is a small amount of sludge within the gallbladder. Pancreas is obscured. There is no right hydronephrosis. IMPRESSION: 1. Mildly distended gallbladder with mild gallbladder wall thickening and trace sludge. No gallstones . No sonographic Guevara's sign. These findings do not strongly suggest acute cholecystitis however a hepatobiliary scan could be obtained if indicated. 2. Incidentally noted right pleural effusion. Small amount of perihepatic ascites. 3. No biliary ductal dilatation. 4. Obscured pancreas. ACT 112: Negative or not required by law. Electronically signed by: David Baldwin M.D. 03/01/2021 4:53 PM
[2021-03-01] MEDS ORDERED: DEXTROSE 50% 50 ML SYRINGE IV PRN (18:36)
[2021-03-01] MEDS ORDERED: GLUCOSE 40% GEL 15 GM TUBE PO PRN (18:36)
[2021-03-01] MEDS ORDERED: CARBOHYDRATES FOR HYPOGLYCEMIA PO PRN (18:36)
[2021-03-01] MEDS ORDERED: GLUCAGON FOR INJ 1 MG VIAL SQ PRN (18:36)
[2021-03-01] MEDS ORDERED: GLUCOSE 10 TABS/TUBE PO PRN (18:36)
[2021-03-01 19:58] LABS: Thyroid Stimulating Hormone 4.68 uIu/ml (0.300-4.500); Troponin I 0.112 ng/ml (0-0.045)
[2021-03-01 20:14] LABS: T4 Free Thyroxine 1.66 ng/dl (0.8-1.6)
[2021-03-01] MEDS: FUROSEMIDE 40 MG in SYRINGE 0 ML IV SCH (20:55)
[2021-03-01] MEDS: PANTOprazole 40 MG TAB PO SCH (20:55)
[2021-03-01] MEDS: GABAPENTIN 400 MG CAP PO SCH (20:55)
[2021-03-01] MEDS: APIXABAN 2.5 MG TAB PO SCH (20:55)
[2021-03-01] MEDS: METHOCARBAMOL 500 MG TABLET PO SCH (20:56)
[2021-03-01] MEDS: METOPROLOL SUCC 25MG EXT REL TAB PO SCH (20:56)
[2021-03-02] MEDS ORDERED: FUROSEMIDE 40 MG/4 ML VIAL IV ONE (00:38)
[2021-03-02] MEDS: INSULIN ASPART 100 UNITS/ML 3 ML PEN SC SCH ×5 (00:44→20:42)
[2021-03-02] MEDS ORDERED: FUROSEMIDE 20 MG in SYRINGE 0 ML IV ONE (00:45)
[2021-03-02 00:55] LABS: HCO3 ABG 27 mmol/L (19-24); Oxygen Saturation ABG 93.6 % (90-95); PCO2 ABG 37 mmHg (35-46); PO2 ABG 64 mmHg (80-95); pH ABG 7.47 (7.35-7.45)
[2021-03-02 00:56] LABS: Allen Test Pos (Pos)
[2021-03-02 07:13] LABS: Hematocrit (blood only) 40.4 % (42-52); Hemoglobin 13.8 g/dL (14.0-18.0); Mean Corpuscular Hemoglobin 27.9 pg (25-34); Mean Corpuscular Hgb Conc 34.2 g/dL (32-36); Mean Corpuscular Volume 81.8 fL (80-100); Mean Platelet Volume 9.7 fL (7.4-10.4); Platelet Count 143 K/uL (130-400); RDW Standard Deviation 52.9 fL (36.4-46.3); Red Blood Count 4.94 M/uL (4.7-6.1); White Blood Count 6.34 K/uL (4.8-10.8)
[2021-03-02 07:27] LABS: INR 1.6 (0.9-1.1); Prothrombin Time 15.3 Seconds (9.0-12.0)
[2021-03-02 07:52] LABS: Albumin Level 3.1 gm/dl (3.4-5.0); BUN Creatinine Ratio 15.4 (10-20); Calcium 8.6 mg/dl (8.5-10.1); Creatinine Clr Calc Pharmacy 18.7 ml/min; Est GFR (African American) 19.7 ml/min; Magnesium 2.6 mg/dl (1.8-2.4); Potassium 4.1 mmol/L (3.5-5.1)
[2021-03-02 08:06] LABS: Albumin Globulin Ratio 1.1 (0.9-2); Bilirubin,Total 1.6 mg/dl (0.2-1); Globulin 2.7 gm/dl (2.5-4.0); Phosphorus 4.2 mg/dl (2.5-4.9); Total Protein 5.8 gm/dl (6.4-8.2)
--- NOTE | 2021-03-02 08:23 | Electrocardiogram Report ---
Test Reason : Blood Pressure : / mmHG Vent. Rate : 082 BPM Atrial Rate : 214 BPM P-R Int : 000 ms QRS Dur : 160 ms QT Int : 484 ms P-R-T Axes : 008 -74 080 degrees QTc Int : 565 ms Atrial flutter with variable A-V block with occasional ventricular-paced complexes Left bundle branch block Abnormal ECG When compared with ECG of 01-MAR-2021 10:55, No significant change Confirmed by Gerhard Spann ([id number]) on 03/02/2021 8:23:36 AM Referred By: REFERRED SELF Confirmed By:Gerhard Spann
--- NOTE | 2021-03-02 08:57 | XRay Report ---
XR chest 1V portable CLINICAL HISTORY: Pleural effusion COMPARISON STUDY: March 01, 2021 FINDINGS: No pneumothorax. Interval worsening/redistribution of the right pleural effusion. Minimal extension of the fluid to th e minor fissure on the right. Lung volumes are decreased. Mild atelectasis is seen at bilateral bases. Cardiomediastinal silhouette remains mildly enlarged. Redemonstration of the mild pulmonary vascular congestion.. Osseous structures: Mild thoracolumbar scoliosis and degenerative changes of the spine are again see n. Stable position of left-sided dual-lead AICD with battery pack partially obscuring left lung parenchy ma. IMPRESSION: 1. Mild interval worsening/distribution of the right pleural effusion. 2. CHF pattern, stable. 3. Low lung volumes with atelectasis at bilateral bases. ACT 112: Negative or not required by law. The above report was generated using voice recognition software. It may contain grammatical, syntax o r spelling errors. Electronically signed by: Kayli Junior DO 03/02/2021 8:55 AM
[2021-03-02] MEDS: FERROUS SULFATE 325 MG TAB PO SCH (09:23)
[2021-03-02] MEDS: PANTOprazole 40 MG TAB PO SCH ×2 (09:23→20:54)
[2021-03-02] MEDS: ALFUZOSIN HCL 10 MG TAB PO SCH (09:23)
[2021-03-02] MEDS: CALCIUM 600MG + VIT D 400 IU TAB PO SCH (09:23)
[2021-03-02] MEDS: METHOCARBAMOL 500 MG TABLET PO SCH ×2 (09:23→20:54)
[2021-03-02] MEDS: AMIODARONE 200 MG TAB PO SCH (09:23)
[2021-03-02] MEDS: GABAPENTIN 400 MG CAP PO SCH ×2 (09:24→20:54)
[2021-03-02] MEDS: APIXABAN 2.5 MG TAB PO SCH ×2 (09:24→20:54)
[2021-03-02] MEDS: METOPROLOL SUCC 25MG EXT REL TAB PO SCH ×2 (09:24→20:54)
[2021-03-02] MEDS: FUROSEMIDE 40 MG in SYRINGE 0 ML IV SCH ×2 (09:25→20:54)
--- NOTE | 2021-03-02 12:21 | Cardiology Consultation ---
Date of Consultation March 02, 2021 Assessment & Plan (1) Acute on chronic systolic heart failure: (2) Familial transthyretin amyloid cardiomyopathy: (3) Atrial flutter: (4) Abdominal pain: (5) Acute kidney injury: (1) Acute on chronic systolic heart failure: I think the patient's complaint of abdominal fullness is likely due to fluid retention. Diuretic dosing has been limited recently due to his renal insufficiency, and he also has a history of low blood pressure and chronic orthostatic hypotension. Echocardiogram reveals acute worsening in his preexistent severe left ventricular systolic dysfunction, with ejection fraction less than 20%. It is noted that he is back in atrial flutter, his rate is well controlled. Given his left ventricular hypertrophy, he is certainly preload dependent, and yes perhaps maintaining sinus rhythm would help, but his ejection fraction was only subtly better when he had been in sinus rhythm at the time of his previous echo. At this time, continue current dose of furosemide 40 mg IV twice daily which he is tolerating thus far. (2) Familial transthyretin amyloid cardiomyopathy: As noted, he is on the IV agent patisiran as well as a oral agent tafamidis as an outpatient. He however has not been able to receive the tafamidis for the last 3 months due to an issue with the outpatient specialty pharmacy. We have tried to help him to this regard, I will reach out to the pharmacy team at our office to see if we can help facilitate him getting back on this medication. I am however concerned, that he has reached an end stage, I am not very optimistic that even with these specialty medications that he is going to improve. (3) Atrial flutter: Continue amiodarone, metoprolol. Fortunately, liver function tests are stable on amiodarone. He is currently on Eliquis 2.5 mg twice daily for stroke prophylaxis. He has an acute kidney injury however with estimated GFR of 18 mL/min/m at present. Use of this medication is contraindicated with GFR less than 15, and for the product insert, it should be used in caution with EGFR levels between 15 and 29 mL/min/m. For now we will continue, as stroke prophylaxis is very important in this case given his risk of embolic stroke, and I anticipate that warfarin treatment would be prohibitively complicated on him with regards to maintaining stable therapeutic INR measurements. (4) Abdominal pain: Short-lived fluid retention as noted above. 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 His recent baseline creatinine has been about 2 g/dL, and he had been discharged with a creatinine of 1.55 in November,. Creatinine this morning 3.25. Continue diuretic therapy for now. Nephrology input noted and appreciated. Overall, I followed Mr. Givens for quite some time, and I am concerned that his cardiomyopathy is reaching an end-stage point. History of Present Illness Attending Physician: Jennie Chowdhury MD History of Present Illness Mr Givens is an 80 year old male seen in cardiology consultation per the request of Delvis Elmore PA-C for the evaluation of acute on chronic systolic heart failure. Patient describes recent worsening of his chronic low back pain, with difficulty ambulating as a result of the pain. He also notes abdominal fullness and early satiety. He has chronic dyspnea on exertion and edema. Per review of the admission notes from yesterday, he had significant lower extremity fluid retention. A Vo catheter had been initially placed, but subsequently removed per the patient's request. His chronic ankle and pedal edema actually appear much improved compared to when I had seen him in the office about 3 weeks ago. 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 He has a history of severe concentric left ventricular hypertrophy and severe left ventricular systolic dysfunction. He has a dual-chamber ICD. He has a history of paroxysmal atrial flutter requiring past cardioversion. He was in sinus rhythm at the time of his admission in November, , however, he has reverted to a rate controlled atrial flutter at present. Allergies Allergy/AdvReac Type Severity Reaction Status Date / Time No Known Allergies Allergy Mild Verified 11/14/20 01:03 Home Medications Medication Instructions Recorded Confirmed Type ferrous sulfate 325 mg (65 mg 325 mg PO QAM 09/17/18 03/01/21 History iron) tablet (iron) glucosamine-chondroitin 500 mg-400 1 tab PO QAM 09/17/18 03/01/21 History mg tablet (Cidaflex) metoprolol succinate 25 mg 25 mg PO BID 05/05/19 03/01/21 History tablet,extended release 24 hr (Toprol XL) methocarbamol 500 mg tablet 500 mg PO BID #90 tab 05/17/19 03/01/21 History oxycodone 5 mg tablet (Roxicodone) 5 mg PO Q6H PRN 09/17/19 03/01/21 History amiodarone 200 mg tablet 200 mg PO QAM 02/09/20 03/01/21 History apixaban 2.5 mg tablet (Eliquis) 2.5 mg PO Q12H #60 tab 02/09/20 03/01/21 Rx alfuzosin 10 mg tablet,extended 10 mg PO QAM 10/18/20 03/01/21 History release 24 hr (Uroxatral) calcium carbonate 500 mg (1,250 1 tab PO DAILY 11/14/20 03/01/21 History mg)-vitamin D3 200 unit tablet (Calcium 500 + D) gabapentin 400 mg capsule 400 mg PO BID 11/14/20 03/01/21 History green tea extract 375 mg capsule 0 mg PO DAILY 11/14/20 03/01/21 History metolazone 2.5 mg tablet 2.5 mg PO 2XWK 11/14/20 03/01/21 History omeprazole 20 mg capsule,delayed 20 mg PO BID 11/14/20 03/01/21 History release patisiran (lipid complex) 2 mg/mL 0 mg IV .[id number] 11/14/20 03/01/21 History intravenous solution potassium chloride 10 mEq 20 meq PO UD 11/14/20 03/01/21 History tablet,extended release(part/cryst) tafamidis 61 mg capsule 61 mg PO DAILY 11/14/20 03/01/21 History torsemide 20 mg tablet 40 mg PO QAM 11/14/20 03/01/21 History pen needle,diabetic, disp unit 32 #100 ea 11/17/20 03/01/21 Rx gauge x 5/32", remover and disposal unit insulin glargine 100 unit/mL (3 20 unit SC DAILY 03/01/21 03/01/21 History mL) subcutaneous pen (Lantus Solostar U-100 Insulin) Patient History Medical History Atrial fibrillation "A.Flutter" onset March 2019 BPH (benign prostatic hyperplasia) Cardiac amyloidosis Chronic back pain Chronic combined systolic and diastolic CHF (congestive heart failure) CKD (chronic kidney disease), stage III Seen in ED on 02/03 for acute dehydration/JOO. Baseline Cr noted to be around 2.0, was elevate at 2.7. Congestive heart failure Degenerative disc disease Diabetes mellitus, type II monitoring higher glucose lab testing, possibly related to medication changes in 2019. to have rechecked. following with PCP. Diverticular disease GERD (gastroesophageal reflux disease) History of cardioversion 05/08/19 DONE AT [facility] History of recent fall 07/2020, treated at [facility] Emergency Room. unsure why he fell, may have "passed out?". broken wrist-->casted, no surgical intervention. Hx of atrial flutter 2015 [facility] per medical record Hyperlipidemia Hypertension ICD (implantable cardioverter-defibrillator) in place IMPLANTED 05/30 [employer] (DR. BRYANT) On anticoagulant therapy Osteoarthritis Scoliosis Spinal stenosis Surgical History History of appendectomy History of arthroscopy RT SHOULDER History of back surgery LUMBAR SPINE History of cardiac cath SUMMER 2017 - [facility] - REASON? - NO STENTS/ANGIOPLASTY - DR. BRYANT History of cardioversion 2018 & 01/2020 ([facility]) History of carpal tunnel release BL History of cataract surgery RT/LEFT History of colonoscopy History of esophagogastroduodenoscopy (EGD) History of tooth extraction S/P cardiac pacemaker procedure ICD placed 2018 (Dr Bryant) S/P epidural steroid injection Lumbar Family History Mother FHx: breast cancer Grandmother (Paternal) FHx: stroke Grandmother (Paternal) FHx: myocardial infarction Father Kidney disease ESRD due to DM. 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 Other Information That Helps Us Care for You: No Feels Safe at Home: Yes Safety Concerns: Feels Safe At This Time Assistive Devices: Cane Review of Systems Review of Systems: All systems reviewed & are unremarkable except as noted in HPI & below Physical Exam Physical Exam: Temp Pulse Resp BP Pulse Ox 36.6 C 94 H 20 92/63 L 91 03/02/21 11:18 03/02/21 11:18 03/02/21 11:18 03/02/21 11:18 03/02/21 11:18 Constitutional: no acute distress (Chronically ill in appearance) Respiratory: Auscultation: + diminished lung sounds (Mildly decreased breath sounds the bases); no rales and no wheezes Cardiovascular: Rate/Rhythm: + irregularly irregular Heart Sounds: + murmur (1/6 systolic murmur) Extremities: + edema (Trace pedal and ankle edema, act ually improved compared to last clinic visi) Neurologic: Conversant, chronic tremor, no focal deficits Psychiatric: Orientation: alert, oriented x 3 and cooperative Mood: + depressed mood Results & Data ([facility]) Vital Signs (Past 12 Hours) Vital Signs Temp Pulse Pulse Pulse Resp BP BP 03/02/21 11:18 36.6 C 94 H 20 92/63 L 03/02/21 08:03 36.6 C 72 20 96/64 L 03/02/21 07:25 78 24 03/02/21 03:28 03/02/21 03:20 80 22 03/02/21 03:03 37.1 C 86 22 101/61 03/02/21 01:47 85 03/02/21 01:05 84 18 Pulse Ox 03/02/21 11:18 91 03/02/21 08:03 100 03/02/21 07:25 100 03/02/21 03:28 99 03/02/21 03:20 94 03/02/21 03:03 03/02/21 01:47 03/02/21 01:05 79 L Laboratory Results Cardiac Enzymes 03/01/21 03/01/21 03/02/21 Range/Units 10:10 19:20 06:56 AST 24 (15-37) U/L Troponin I 0.104 H* 0.112 H* (0-0.045) ng/ml Coagulation INR 1.6 03/02/21 Range/Units 06:56 PT 15.3 H (9.0-12.0) Seconds CBC 03/02/21 Range/Units 06:56 WBC 6.34 (4.8-10.8) K/uL RBC 4.94 (4.7-6.1) M/uL Hgb 13.8 L (14.0-18.0) g/dL Hct 40.4 L (42-52) % Plt Count 143 (130-400) K/uL Comprehensive Metabolic Panel 03/01/21 03/02/21 Range/Units 10:10 06:56 Sodium 135 L (136-145) mmol/L Potassium 4.1 (3.5-5.1) mmol/L Chloride 98 (98-107) mmol/L Carbon Dioxide 32 (21-32) mmol/L BUN 50 H (7-18) mg/dl Creatinine 3.25 H (0.6-1.4) mg/dl Glucose 79 (70-99) mg/dl Calcium 8.6 (8.5-10.1) mg/dl AST 24 (15-37) U/L ALT 28 (12-78) U/L Alkaline Phosphatase 93 89 (45-117) U/L Total Protein 7.0 5.8 L (6.4-8.2) gm/dl Albumin 3.1 L (3.4-5.0) gm/dl Intake and Output 03/01/21 03/02/21 03/02/21 22:59 06:59 14:59 Intake Total 1200 / 1280 80 / 1280 Output Total 500 / 750 250 / 750 Balance 700 / 530 -170 / 530 Intake: IV 500 / 500 Sodium Chloride 0.9% 500 ml @ 500 / 500 999 mls/hr IV .Q31M ONE Rx#: [id number] Oral 700 / 780 80 / 780 Output: Urine 250 / 250 Urine Amount (Catheter) 500 / 500 Vo/Indwelling 500 / 500 Other: Weight 84.7 kg 82.3 kg Weight Measurement Method [facility] Diagnostic Findings EKG performed 03/02/2021 reveals atrial flutter at 82 bpm with occasional PVCs and occasional ventricular paced rhythm. EKG and CT of abdomen pelvis revealing moderate right pleural effusion, some degree of ascites noted Transthoracic echocardiogram performed today reveals severe global left ventricular hypokinesis, severe concentric left ventricular hypertrophy, LVEF less than 20%. Moderate aortic valve stenosis. (1) Abdominal pain Abdominal location: generalized Qualified Code(s): R10.84 - Generalized abdominal pain
--- NOTE | 2021-03-02 16:58 | Hospitalist Progress Note ---
Date of Service March 02, 2021 Assessment & Plan (1) Abdominal pain: Plan: Advanced/severe cardiomyopathy with presentation of acute on chronic systolic heart failure volume overload Appreciate input from cardiology, Patient is continued with the diuresis Reports improvement of symptoms, No pain/discomfort possible secondary to volume overload, symptom has resolved after aggressive diuresis Rating diet, no nausea vomiting, (2) Acute on chronic systolic heart failure: Plan: ECHO shows severe cardiomyopathy with ejection fraction 25% Possibly secondary to amyloid cardiomyopathy Appreciate input per cardiology, IV Lasix continued, Overall prognosis remains poor - A flutter: Rate controlled, on beta-teetee Eliquis for stroke prophylaxis Amyloid cardiomyopathy: Advanced age causing severe restrictive cardiomyopathy with decompensated CHF, overall prognosis remains poor Acute renal failure with CKD stage III: Possible secondary to poor perfusion with decompensated CHF Also 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 Appreciate input from nephrology, Continue with diuresis and with close monitoring of BMP Avoid NSAIDs and contrast studies (3) Diabetes mellitus, type II: Plan: Insulin sliding scale: (4) 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, 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 (5) CKD (chronic kidney disease), stage III: Plan: As discussed above (6) Paroxysmal atrial fibrillation: Plan: Developed a flutter/plan discussed above (7) Chronic back pain: Plan: -Continue his home pain medications -oxycodone, gabapentin (8) Elevated troponin: Plan: Due to advanced cardiomyopathy decompensated CHF (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: Plan: - Hx of such, chronic - PT/OT consults Plan: DVT ppx: - rob calvillo BID CODE: Full Dispo: PT eval requested, return home when medically stable Admission and Anticipated Discharge Date Admission Date: March 01, 2021 Subjective Patient seen in room 275.1, Sitting up on chair, states his breathing has much improved, no cough no chest heaviness Abdominal pain has resolved no nausea or vomiting Worried about his progressively declining cardiac status Wondering if doing more exercise will help to improve cardiac strength Patient is updated for any type of strenuous activity he should be discussing with his cardiology, Does not have any cough, no fever or chills, Review of Systems Review of Systems: All systems reviewed & are unremarkable except as noted in Subjective Physical Exam Constitutional: + ill appearing; no acute distress Eyes: PERRL, conjunctivae normal, anicteric sclerae ENMT: external ear and nose normal, oropharynx normal Neck: trachea midline, no thyromegaly Respiratory: Auscultation: + diminished lung sounds and + rales Cardiovascular: Rate/Rhythm: + irregularly irregular Extremities: + edema Gastrointestinal (Abdomen): Percussion/Palpation: abdomen soft; abdomen nontender Musculoskeletal: Extremities: + abnormal strength (generalized weakness ) Skin: no rashes, warm and dry Neurologic: PERRL, EOMI, accommodation nl, no face palsy, no dysarthria Psychiatric: A+Ox3, euthymic affect Results & Data Results & Data ([facility]) Vital Signs (Past 12 Hours) Vital Signs Temp Pulse Pulse Resp BP BP Pulse Ox 03/02/21 15:01 36.9 C 95 H 20 99/63 L 93 03/02/21 11:18 36.6 C 94 H 20 92/63 L 91 03/02/21 08:03 36.6 C 72 20 96/64 L 100 03/02/21 07:25 78 24 100
--- NOTE | 2021-03-02 19:29 | Consultation Report ---
NEPHROLOGY CONSULTATION NOTE DATE OF CONSULTATION: 03/02/2021 REASON FOR CONSULTATION: [id number] renal failure. HISTORY OF PRESENT ILLNESS: The patient is an 80-year-old male with history of preexisting chronic k idney disease, which has been worsening over the last 1 year. He is followed by my colleague, Dr. Reinier bell, in nephrology clinic and in fact had an outpatient visit on 02/22, which would be just a week a go. The patient has history of amyloid cardiomyopathy diagnosed 4 years ago, on patisiran medication , also has diabetes for a few years. He has cardiomyopathy with a low ejection fraction and it is ar ound 20% at this time. His most recent outpatient creatinine was 3.2 as of 02/08/2021. On admission yesterday, he had a creatinine of 3.25 and 3.43. He presented to the hospital yesterday because of a bdominal pain, back pain as well as shortness of breath and increased lower extremity edema. He has chronic dyspnea on exertion and edema, which seems to have got worse according to the patient. He rodgers d a Vo catheter tried, but he got significant discomfort and pain, after which it was removed. At this time, abdominal pain and back pain seem to have subsided a little bit. ALLERGIES: None. MEDICATIONS: Home medication list was reviewed in detail and is as per the H and P. He currently ta kes metolazone 2.5 mg 2 times a week as well as torsemide 40 mg daily. He also gets IV patisiran ina ry 3 weeks as well as tafamidis 61 mg daily for his amyloidosis. REVIEW OF SYSTEMS: As detailed in the HPI, unless stated otherwise, 12 systems reviewed are negative . FAMILY HISTORY: Positive for dialysis in his father for diabetic nephropathy as well as multiple bro thers with diabetes. SOCIAL HISTORY: He is a retired employee from [employer]. No smoking, no alc ohol. He lives alone. His in 2019. PHYSICAL EXAMINATION: GENERAL: Elderly black male who is awake, alert and oriented. He is not in any distress, although h e does have limitation. CHEST: Bilateral decreased breath sounds and occasional crackles. CARDIOVASCULAR: S1 and S2, regular. Soft systolic murmur heard. ABDOMEN: Soft, nontender. EXTREMITIES: Show 1+ edema. LABORATORY TESTS: Sodium 135, potassium 4.1, BUN 50, creatinine was 3.25, which is same as his most recent outpatient creatinine on 02/08/2021. Magnesium 2.6, albumin 3.1. Hemoglobin 13.8, WBC count 6.34. Urine test shows no blood, no protein and was a very bland urine sediment. Chest x-ray shows worsening right pleural effusion, CHF pattern. ASSESSMENT AND PLAN: An 80-year-old male with a known history of chronic kidney disease, which seems to be worsening with the most recent outpatient creatinine of 3.2 as well as history of amyloidosis- related cardiomyopathy, on treatment. Now admitted with nonspecific abdominal back pain and some flu id retention. I have been consulted for syxps-oe-aljscqa renal failure. Eduei-vs-fbjpcui renal failure: His outpatient baseline creatinine seems to be worsening in the last one year and I do not think this is necessarily related with diuretics use, but more likely a progre ssion of his underlying kidney disease, which is related with either amyloidosis or cardiac functiona l status. At this point, he still does appear to be somewhat volume overloaded, although as per Dr. Llamas, who follows the patient closely as an outpatient, his volume status is better compared to b efore. He does have pleural effusion and may likely benefit from thoracocentesis. As for the diuret ics, he is currently getting Lasix 40 mg IV twice daily, which is reasonable to continue for the time being. A current creatinine of 3.2 is no different than what he had almost a month ago. We can hold metolazone for the time being. I also reviewed cardiology note regarding the advanced status of his cardiac problem. His urine sediment was very bland, which is good as it rules out most of the other causes of renal failure. Job ID: [id number]
[2021-03-02] MEDS: POLYETHYLENE (MIRALAX) 17 GM PACK PO PRN (20:54)
[2021-03-03] MEDS ORDERED: dilTIAZem HCl 5 MG/ML 5 ML VIAL IV ONE (00:24)
[2021-03-03] MEDS ORDERED: dilTIAZem HCl 5 MG/ML 5 ML VIAL IV STA (00:29)
[2021-03-03] MEDS ORDERED: Nursing to Pharmacy Communication SCH (00:30)
[2021-03-03 01:18] LABS: iSTAT Allen Test Pass; iSTAT Art Bld Gas pCO2 Correct 42 mmHg (35-46); iSTAT Art Bld Gas pH Corrected 7.464 (7.35-7.45); iSTAT Arterial Blood Gas HCO3 30 meg/L (19-24); iSTAT Arterial Blood Gas pCO2 42 mmHg (35-46); iSTAT Arterial Blood Gas pH 7.47 (7.35-7.45); iSTAT Arterial Blood Gas pO2 172 mmHg (80-95); iSTAT Arterial Blood Gas pO2 C 173; iSTAT Carbon Dioxide 31 mmol/L (24-31); iSTAT FiO2 40 %; iSTAT Hematocrit 46 % (42-52); iSTAT Hemoglobin 15.6 g/dl (14.0-18.0); iSTAT Potassium 4.2 mmol/L (3.3-5.0); iSTAT Site R Radial; iSTAT Sodium 135 mmol/L (135-144)
[2021-03-03 06:12] LABS: EAG mmol/L 7.3 (calc); HA1C 6.2 (<5.7)
[2021-03-03 08:09] LABS: Hematocrit (blood only) 41.1 % (42-52); Mean Corpuscular Hemoglobin 28.1 pg (25-34); Mean Corpuscular Hgb Conc 34.1 g/dL (32-36); Mean Corpuscular Volume 82.4 fL (80-100); Mean Platelet Volume 9.9 fL (7.4-10.4); Platelet Count 142 K/uL (130-400); RDW Coefficient of Variation 18.1 % (11.5-14.5); RDW Standard Deviation 53.8 fL (36.4-46.3); Red Blood Count 4.99 M/uL (4.7-6.1); White Blood Count 12.89 K/uL (4.8-10.8)
[2021-03-03 08:18] LABS: INR 1.5 (0.9-1.1); Prothrombin Time 15.2 Seconds (9.0-12.0)
[2021-03-03] MEDS: APIXABAN 2.5 MG TAB PO SCH ×2 (08:32→21:50)
[2021-03-03] MEDS: FUROSEMIDE 40 MG in SYRINGE 0 ML IV SCH (08:32)
[2021-03-03] MEDS: METHOCARBAMOL 500 MG TABLET PO SCH ×2 (08:32→21:46)
[2021-03-03] MEDS: ALFUZOSIN HCL 10 MG TAB PO SCH (08:33)
[2021-03-03] MEDS: AMIODARONE 200 MG TAB PO SCH (08:33)
[2021-03-03] MEDS: CALCIUM 600MG + VIT D 400 IU TAB PO SCH (08:33)
[2021-03-03] MEDS: GABAPENTIN 400 MG CAP PO SCH ×2 (08:33→21:47)
[2021-03-03] MEDS: FERROUS SULFATE 325 MG TAB PO SCH (08:33)
[2021-03-03] MEDS: INSULIN ASPART 100 UNITS/ML 3 ML PEN SC SCH ×4 (08:34→21:50)
[2021-03-03] MEDS: PANTOprazole 40 MG TAB PO SCH ×2 (08:34→21:46)
[2021-03-03 08:54] LABS: Albumin Globulin Ratio 1.1 (0.9-2); Albumin Level 3.2 gm/dl (3.4-5.0); BUN Creatinine Ratio 15.2 (10-20); Bilirubin,Total 1.9 mg/dl (0.2-1); Calcium 8.7 mg/dl (8.5-10.1); Creatinine Clr Calc Pharmacy 18.5 ml/min; Est GFR (African American) 19.4 ml/min; Est GFR (Non-African American) 16.8 ml/min; Globulin 2.9 gm/dl (2.5-4.0); Potassium 4.1 mmol/L (3.5-5.1); Total Protein 6.1 gm/dl (6.4-8.2)
[2021-03-03] MEDS: METOPROLOL SUCC 25MG EXT REL TAB PO SCH ×2 (10:28→21:50)
--- NOTE | 2021-03-03 11:14 | Nephrology Progress Note ---
Date of Service March 03, 2021 Assessment & Plan Admission and Anticipated Discharge Date Admission Date: March 01, 2021 Subjective Denies abd pain now. Has edema even now. Not sure IO charting accurate. Vo already removed. GENERAL: Elderly black male who is awake, alert and oriented. He is not in any distress, although he does have limitation. CHEST: Bilateral decreased breath sounds and occasional crackles. CARDIOVASCULAR: S1 and S2, regular. Soft systolic murmur heard. ABDOMEN: Soft, nontender. EXTREMITIES: Show 1+ edema. LABORATORY TESTS: Creat stable in the 3.2 range Urine test shows no blood, no protein and was a very bland urine sediment. Chest x-ray shows worsening right pleural effusion, CHF pattern. ASSESSMENT AND PLAN: An 80-year-old male with a known history of chronic kidney disease, which seems to be worsening with the most recent outpatient creatinine of 3.2 as well as history of amyloidosis-related cardiomyopathy, on treatment. Now admitted with nonspecific abdominal back pain and some fluid retention. I have been consulted for [id number] renal failure. Oeyia-bl-lthscts renal failure: His outpatient baseline creatinine seems to be worsening in the last one year and I do not think this is necessarily related with diuretics use, but more likely a progression of his underlying kidney disease, which is related with either amyloidosis or cardiac functional status. At this point, he still does appear to be somewhat volume overloaded. He does have pleural effusion and may likely benefit from thoracocentesis. As for the diuretics, he is currently getting Lasix 40 mg IV twice daily. Not sure he is having adequate urine output with this. Will discuss with cardiology about possibly doubling the iv lasix dose. A current creatinine of 3.2 is no different than what he had almost a month ago. We can hold metolazone for the time being. I also reviewed cardiology note regarding the advanced status of his cardiac problem. Does not appear he will be a candidate for dialysis if such need arise. His urine sediment was very bland, which is good as it rules out most of the other causes of renal failure. Results & Data ([facility]) Vital Signs (Past 12 Hours) Vital Signs Temp Pulse Pulse Resp BP BP Pulse Ox 03/03/21 10:53 36.7 C 92 H 18 103/71 97 03/03/21 08:00 36.9 C 75 20 96/61 L 97 03/03/21 03:59 36.9 C 105 H 16 93/65 L 96 03/03/21 03:28 37.5 C 115 H 18 96/64 L 96 03/03/21 00:59 100 03/03/21 00:52 118 H 16 118/79 03/03/21 00:33 140 H 113/80 03/03/21 00:21 140 H 123/88
[2021-03-03] MEDS: FUROSEMIDE 60 MG in SYRINGE 0 ML IV SCH (14:00)
--- NOTE | 2021-03-03 15:48 | Hospitalist Progress Note ---
Date of Service March 03, 2021 Assessment & Plan (1) Abdominal pain: Plan: clinically improved , abdominal pain has improved after diuresis Advanced/severe cardiomyopathy with presentation of acute on chronic systolic heart failure volume overload Appreciate input from cardiology, Patient is continued with the diuresis Reports improvement of symptoms, No pain/discomfort possible secondary to volume overload, symptom has resolved after aggressive diuresis tolerating diet, no nausea vomiting, (2) Acute on chronic systolic heart failure: Plan: ECHO shows severe cardiomyopathy with ejection fraction 25% Possibly secondary to amyloid cardiomyopathy Appreciate input per cardiology, IV Lasix continued, Overall prognosis remains poor - Deconditioning : due to above , PT/OT eval appreciated recommend rehab referral made to [facility] flutter: Rate controlled, on beta-teetee Eliquis for stroke prophylaxis dose reduced to 2.5 mg BID for poor renal clearance 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 with decompensated CHF, overall prognosis remains poor Acute renal failure with CKD stage III: Possible secondary to poor perfusion with decompensated CHF Also 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 Appreciate input from nephrology, Continue with diuresis and with close monitoring of BMP Avoid NSAIDs and contrast studies (3) Diabetes mellitus, type II: Plan: Insulin sliding scale: (4) 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, 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 (5) CKD (chronic kidney disease), stage III: Plan: As discussed above (6) Paroxysmal atrial fibrillation: Plan: Developed a flutter/plan discussed above (7) Chronic back pain: Plan: -Continue his home pain medications -oxycodone, gabapentin (8) Elevated troponin: Plan: Due to advanced cardiomyopathy decompensated CHF (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: Plan: - Hx of such, chronic - PT/OT consults Plan: DVT ppx: - teds, eliquis BID CODE: Full Dispo:transfer to rehab when medically stable Admission and Anticipated Discharge Date Admission Date: March 01, 2021 Subjective Patient seen in room 275.1, doing better than yesterday no complain of shortness of breath , abdominal pain and discomfort has improved no complain of dizzy spell or palpitation Review of Systems Review of Systems: All systems reviewed & are unremarkable except as noted in Subjective Physical Exam Constitutional: + ill appearing; no acute distress Eyes: PERRL, conjunctivae normal, anicteric sclerae ENMT: external ear and nose normal, oropharynx normal Neck: trachea midline, no thyromegaly Respiratory: Auscultation: + diminished lung sounds and + rales Cardiovascular: Rate/Rhythm: + irregularly irregular Extremities: + edema Gastrointestinal (Abdomen): Percussion/Palpation: abdomen soft; abdomen nontender Musculoskeletal: Extremities: + abnormal strength (generalized weakness ) Skin: no rashes, warm and dry Neurologic: PERRL, EOMI, accommodation nl, no face palsy, no dysarthria Psychiatric: A+Ox3, euthymic affect Results & Data Results & Data ([facility]) Vital Signs (Past 12 Hours) Vital Signs Temp Pulse Resp BP BP Pulse Ox Pulse Ox 03/03/21 15:05 36.8 C 73 18 100/68 95 03/03/21 13:54 95 03/03/21 10:53 36.7 C 92 H 18 103/71 97 03/03/21 08:00 36.9 C 75 20 96/61 L 97 03/03/21 03:59 36.9 C 105 H 16 93/65 L 96
--- NOTE | 2021-03-03 16:22 | Cardiology Progress Note ---
Date of Service March 03, 2021 Assessment & Plan (1) Acute on chronic systolic heart failure: (2) Familial transthyretin amyloid cardiomyopathy: (3) Paroxysmal atrial fibrillation: (4) Abdominal pain: (5) Acute kidney injury: Plan: (1) Acute on chronic systolic heart failure: I think the patient's complaint of abdominal fullness is likely due to fluid retention. Echocardiogram reveals acute worsening in his preexistent severe left ventricular systolic dysfunction, with ejection fraction less than 20%. It is noted that he is back in atrial fibrillation / flutter, his rate is well controlled. Given his left ventricular hypertrophy, he is certainly preload dependent, and yes perhaps maintaining sinus rhythm would help, but his ejection fraction was only subtly better when he had been in sinus rhythm at the time of his previous echo. I am not very optimistic however, that sinus rhythm could be maintained. Increase the furosemide dose to 60 mg IV BID. (2) Familial transthyretin amyloid cardiomyopathy: As noted, he is on the IV agent patisiran as well as a oral agent tafamidis as an outpatient. He however has not been able to receive the tafamidis for the last 3 months due to an issue with the outpatient specialty pharmacy. Efforts are underway with outpatient team to look in to re-establishing his access to this agent. (3) Atrial fibrillation / flutter: Continue amiodarone, metoprolol. Fortunately, liver function tests are stable on amiodarone. He is currently on Eliquis 2.5 mg twice daily for stroke prophylaxis. He has an acute kidney injury however with estimated GFR of 18.5mL/min/m at present. Use of this medication is contraindicated with GFR less than 15, and for the product insert, it should be used in caution with EGFR levels between 15 and 29 mL/min/m. For now we will continue, as stroke prophylaxis is very important in this case given his risk of embolic stroke, and I anticipate that warfarin treatment would be prohibitively complicated on him with regards to maintaining stable therapeutic INR measurements. (4) Abdominal pain: likely due to fluid retention as noted above. 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 His recent baseline creatinine has been about 2 g/dL but increased to > 3 within the last month. Nephrology input noted and appreciated. His cardiomyopathy likely excluded him from being a dialysis candidate. Admission and Anticipated Discharge Date Admission Date: March 01, 2021 Subjective Mr. Givens is seen in follow-up of his chief complaint of exertional shortness of breath, orthostatic dizziness, abdominal discomfort. Blood pressure remains borderline. Telemetry reveals atrial fibrillation for the most part in the 80s. His pedal edema and ankle edema are quite well controlled for him at present. Physical Exam Physical Exam: Temp Pulse Resp BP Pulse Ox 36.8 C 73 18 100/68 95 03/03/21 15:05 03/03/21 15:05 03/03/21 15:05 03/03/21 15:05 03/03/21 15:05 Constitutional: + ill appearing; no acute distress Respiratory: Auscultation: + diminished lung sounds (Mildly diminished breath sounds the bases); no crackles, no rales and no wheezes Cardiovascular: Rate/Rhythm: + irregularly irregular Heart Sounds: + murmur (1/6 systolic murmur) Extremities: + edema (Trace to mild ankle and pedal edema) Chest (Breasts): Additional Comments: Infraclavicular device pocket clean dry and intact Gastrointestinal (Abdomen): Abdominal fullness improving Neurologic: PERRL, EOMI, accommodation nl, no face palsy, no dysarthria Results & Data ([facility]) Vital Signs (Past 12 Hours) Vital Signs Temp Pulse Resp BP Pulse Ox Pulse Ox 03/03/21 15:05 36.8 C 73 18 100/68 95 03/03/21 13:54 95 03/03/21 10:53 36.7 C 92 H 18 103/71 97 03/03/21 08:00 36.9 C 75 20 96/61 L 97 Laboratory Results Cardiac Enzymes 03/03/21 Range/Units 07:11 AST 24 (15-37) U/L Coagulation 03/03/21 Range/Units 07:11 PT 15.2 H (9.0-12.0) Seconds CBC 03/03/21 Range/Units 07:11 WBC 12.89 H (4.8-10.8) K/uL RBC 4.99 (4.7-6.1) M/uL Hgb 14.0 (14.0-18.0) g/dL Hct 41.1 L (42-52) % Plt Count 142 (130-400) K/uL Comprehensive Metabolic Panel 03/03/21 Range/Units 07:11 Sodium 135 L (136-145) mmol/L Potassium 4.1 (3.5-5.1) mmol/L Chloride 97 L (98-107) mmol/L Carbon Dioxide 30 (21-32) mmol/L BUN 50 H (7-18) mg/dl Creatinine 3.29 H (0.6-1.4) mg/dl Glucose 158 H (70-99) mg/dl Calcium 8.7 (8.5-10.1) mg/dl AST 24 (15-37) U/L ALT 28 (12-78) U/L Alkaline Phosphatase 89 (45-117) U/L Total Protein 6.1 L (6.4-8.2) gm/dl Albumin 3.2 L (3.4-5.0) gm/dl Intake and Output 03/03/21 03/03/21 03/03/21 06:59 14:59 22:59 Intake Total 1275 / 1275 Output Total 150 / 725 450 / 450 Balance -150 / 125 825 / 825 Intake: Oral 1275 / 1275 Output: Urine 150 / 725 450 / 450 Other: Weight 79.1 kg Weight Measurement Method Built in [facility]
--- NOTE | 2021-03-03 16:22 | Electrocardiogram Report ---
Test Reason : Blood Pressure : / mmHG Vent. Rate : 132 BPM Atrial Rate : 227 BPM P-R Int : 000 ms QRS Dur : 140 ms QT Int : 382 ms P-R-T Axes : 000 -63 111 degrees QTc Int : 565 ms Poor data quality, interpretation may be adversely affected Atrial fibrillation with variable A-V block Left axis deviation Left bundle branch block Abnormal ECG When compared with ECG of 02-MAR-2021 05:44, Atrial fibrillation has replaced Electronic ventricular pacemaker Vent. rate has increased BY 50 BPM Confirmed by Lobito Smith ([id number]) on 03/03/2021 4:21:56 PM Referred By: REFERRED SELF Confirmed By:Lobito Smith
--- NOTE | 2021-03-03 16:22 | Electrocardiogram Report ---
Test Reason : Blood Pressure : / mmHG Vent. Rate : 124 BPM Atrial Rate : 234 BPM P-R Int : 000 ms QRS Dur : 138 ms QT Int : 390 ms P-R-T Axes : 000 -60 109 degrees QTc Int : 560 ms Atrial flutter with variable A-V block Left axis deviation Left bundle branch block Abnormal ECG When compared with ECG of 03-MAR-2021 00:07, (unconfirmed) No significant change was found Confirmed by Lobito Smith ([id number]) on 03/03/2021 4:22:06 PM Referred By: REFERRED SELF Confirmed By:Lobito Smith
[2021-03-03] MEDS: POLYETHYLENE (MIRALAX) 17 GM PACK PO PRN (21:46)
[2021-03-04] MEDS: FUROSEMIDE 60 MG in SYRINGE 0 ML IV SCH ×2 (06:25→14:46)
[2021-03-04] MEDS: CALCIUM 600MG + VIT D 400 IU TAB PO SCH (08:25)
[2021-03-04] MEDS: APIXABAN 2.5 MG TAB PO SCH ×2 (08:25→20:42)
[2021-03-04] MEDS: PANTOprazole 40 MG TAB PO SCH ×2 (08:25→20:43)
[2021-03-04] MEDS: METOPROLOL SUCC 25MG EXT REL TAB PO SCH ×2 (08:25→20:44)
[2021-03-04] MEDS: METHOCARBAMOL 500 MG TABLET PO SCH ×2 (08:26→20:43)
[2021-03-04] MEDS: AMIODARONE 200 MG TAB PO SCH (08:26)
[2021-03-04] MEDS: GABAPENTIN 400 MG CAP PO SCH ×2 (08:26→20:42)
[2021-03-04] MEDS: FERROUS SULFATE 325 MG TAB PO SCH (08:26)
[2021-03-04] MEDS: INSULIN ASPART 100 UNITS/ML 3 ML PEN SC SCH ×4 (08:26→20:46)
[2021-03-04] MEDS: ALFUZOSIN HCL 10 MG TAB PO SCH (08:26)
[2021-03-04 09:34] LABS: Hematocrit (blood only) 41.5 % (42-52); Mean Corpuscular Hemoglobin 27.8 pg (25-34); Mean Corpuscular Hgb Conc 33.7 g/dL (32-36); Mean Corpuscular Volume 82.5 fL (80-100); Mean Platelet Volume 10.2 fL (7.4-10.4); Platelet Count 142 K/uL (130-400); RDW Coefficient of Variation 18.4 % (11.5-14.5); RDW Standard Deviation 55.1 fL (36.4-46.3); Red Blood Count 5.03 M/uL (4.7-6.1); White Blood Count 10.81 K/uL (4.8-10.8)
[2021-03-04 09:44] LABS: INR 1.5 (0.9-1.1); Prothrombin Time 14.4 Seconds (9.0-12.0)
[2021-03-04 09:56] LABS: Albumin Level 3.1 gm/dl (3.4-5.0); BUN Creatinine Ratio 16.7 (10-20); Calcium 8.5 mg/dl (8.5-10.1); Creatinine Clr Calc Pharmacy 21.6 ml/min; Est GFR (African American) 23.4 ml/min; Est GFR (Non-African American) 20.2 ml/min; Potassium 4.1 mmol/L (3.5-5.1)
[2021-03-04 09:59] LABS: Bilirubin,Total 1.7 mg/dl (0.2-1); Globulin 3.2 gm/dl (2.5-4.0); Total Protein 6.3 gm/dl (6.4-8.2)
--- NOTE | 2021-03-04 12:56 | Nephrology Progress Note ---
Date of Service March 04, 2021 Assessment & Plan (1) Acute kidney injury: Plan: Patient with acute kidney injury due to cardiorenal syndrome. Baseline creatinine around high twos. Admission creatinine of 3.2. Creatinine down to 2.8. Electrolytes are stable. Patient still with signs of volume overload. -Monitor renal function with daily BMP -Monitor input output -Fluid limit of 1.2 L daily. (2) Acute on chronic systolic heart failure: Plan: Patient with worsening CHF due to cardiac amyloidosis. EF of about 20%. -Continue diuresis. Agree with IV Lasix 60 mg twice daily. -2 g sodium diet Admission and Anticipated Discharge Date Admission Date: March 01, 2021 Subjective Patient seen in follow-up for CKD and CHF. He complains of mild shortness of breath and general weakness. He is making urine. No Vo catheter. Patient remains net positive. Review of Systems Review of Systems: All systems reviewed & are unremarkable except as noted in Subjective Physical Exam Physical Exam: General exam: Appears comfortable, no acute distress HEENT: Pupils are equal and reactive to light Neck: No JVD, neck is supple trachea is midline Respiratory system: Reduced breath sounds in the bases bilaterally. Gastrointestinal: Abdomen is soft, non distended, non tender, bowel sounds are present CVS: Regular rate and rhythm. No murmurs, rubs or gallops Musculoskeletal: No joint or muscle tenderness Extremities: Non tender, 1+ edema, peripheral pulses are present Neuro: Oriented, no tremors, no focal neurological deficits Skin: No rashes Results & Data ([facility]) Vital Signs (Past 12 Hours) Vital Signs Temp Pulse Pulse Resp BP BP Pulse Ox 03/04/21 11:43 36.8 C 93 H 16 98/65 L 91 03/04/21 07:38 36.7 C 110 H 16 104/69 97 03/04/21 07:36 88 03/04/21 03:27 36.9 C 96 H 20 96/56 L 96 Laboratory Results 03/04/21 09:08 03/04/21 03/04/21 09:08 09:08 WBC 10.81 H RBC 5.03 MCV 82.5 MCH 27.8 MCHC 33.7 RDW Std Deviation 55.1 H RDW Coeff of Daria 18.4 H Plt Count 142 MPV 10.2 Albumin 3.1 L
[2021-03-04] MEDS ORDERED: BENZONATATE 100 MG CAPSULE PO PRN (17:08)
--- NOTE | 2021-03-04 17:16 | Hospitalist Progress Note ---
Date of Service March 04, 2021 Assessment & Plan (1) Abdominal pain: Plan: Nonproductive cough: Possible due to decompensated CHF? Significant distress at this point, change Tessalon Perles to schedule 3 times daily Continue diuresis as per cardiology Abdominal pain: Initial pain and discomfort has resolved, Feels abdominal distention has improved somewhat after diuresis At present having chest and abdominal pain due to constant coughing No nausea vomiting or diarrhea Advanced/severe cardiomyopathy with presentation of acute on chronic systolic heart failure volume overload With amyloid cardiomyopathy Appreciate input from cardiology, Patient is continued with the diuresis Overall prognosis remains poor (2) Acute on chronic systolic heart failure: Plan: ECHO shows severe cardiomyopathy with ejection fraction 25% Possibly secondary to amyloid cardiomyopathy Appreciate input per cardiology, IV Lasix continued, Overall prognosis remains poor - Deconditioning : due to above , PT/OT eval appreciated recommend rehab referral made to [facility] A flutter: Rate controlled, on beta-teetee Eliquis for stroke prophylaxis dose reduced to 2.5 mg BID for poor renal clearance Continue to monitor BMP, Eliquis will be discontinued if GFR is less than 15 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 with decompensated CHF, overall prognosis remains poor Acute renal failure with CKD stage III: Possible secondary to poor perfusion with decompensated CHF Also 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 Appreciate input from nephrology, Continue with diuresis and with close monitoring of BMP Avoid NSAIDs and contrast studies (3) Diabetes mellitus, type II: Plan: Insulin sliding scale: (4) 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, 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 (5) CKD (chronic kidney disease), stage III: Plan: As discussed above (6) Paroxysmal atrial fibrillation: Plan: Developed a flutter/plan discussed above (7) Chronic back pain: Plan: -Continue his home pain medications -oxycodone, gabapentin (8) Elevated troponin: Plan: Due to advanced cardiomyopathy decompensated CHF (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: Plan: - Hx of such, chronic - PT/OT consults Plan: DVT ppx: - teds, eliquis BID CODE: Full/overall prognosis remains very poor, need to address goals of care and readdress CODE STATUS: Patient is somewhat in denial for severity of his medical condition, Patient son is traveling from out of country to [facility] tomorrow, Patient is willing to update the son, Dispo: To be determined, overall prognosis remains very poor Admission and Anticipated Discharge Date Admission Date: March 01, 2021 Subjective Follow-up visit for decompensated CHF/acute renal failure: Continues to have nonproductive cough, complains of chest and abdominal pain from constant coughing Does not feel short of breath, Feels his leg swelling has improved, has profound weakness tiredness No fever or chills no complaint of abdominal pain no nausea, tolerating diet Review of Systems Review of Systems: All systems reviewed & are unremarkable except as noted in Subjective Physical Exam Constitutional: + ill appearing; no acute distress Eyes: PERRL, conjunctivae normal, anicteric sclerae ENMT: external ear and nose normal, oropharynx normal Neck: trachea midline, no thyromegaly Respiratory: Auscultation: + diminished lung sounds and + rales Cardiovascular: Rate/Rhythm: + irregularly irregular Extremities: + edema Gastrointestinal (Abdomen): Percussion/Palpation: abdomen soft; abdomen nontender Musculoskeletal: Extremities: + abnormal strength (generalized weakness ) Skin: no rashes, warm and dry Neurologic: PERRL, EOMI, accommodation nl, no face palsy, no dysarthria Psychiatric: A+Ox3, euthymic affect Results & Data Results & Data ([facility]) Vital Signs (Past 12 Hours) Vital Signs Temp Pulse Pulse Resp BP BP Pulse Ox 03/04/21 15:27 37 C 78 16 111/76 95 03/04/21 14:52 96 H 03/04/21 11:43 36.8 C 93 H 16 98/65 L 91 03/04/21 07:38 36.7 C 110 H 16 104/69 97 03/04/21 07:36 88
--- NOTE | 2021-03-04 17:17 | Cardiology Progress Note ---
Date of Service March 04, 2021 Assessment & Plan (1) Acute on chronic systolic heart failure: Plan: Continue furosemide 60mg BID. (2) Familial transthyretin amyloid cardiomyopathy: Plan: Outpatient treatment with patisiran and tafamidis. (3) Paroxysmal atrial fibrillation: Plan: Continue metoprolol, amiodarone, ans eliquis. (4) Acute kidney injury: Plan: Creatinine trending downward. Monitor daily BMP. Continue diuretic therapy. (5) Cough: Plan: Add tessilon pearles as needed. Admission and Anticipated Discharge Date Admission Date: March 01, 2021 Subjective Patient seen and examined at the bedside. Complains of cough and hematuria since catheter removal. SOB unchanged. Telemetry demonstates AF in the s. Review of Systems Review of Systems: All systems reviewed & are unremarkable except as noted in Subjective Physical Exam Constitutional: well developed, well nourished and + ill appearing Respiratory: no respiratory distress and no labored breathing Auscultation: + rales (bases B/L); no rhonchi and no wheezes Gastrointestinal (Abdomen): Inspection/Auscultation: normal bowel sounds; abdomen not distended Percussion/Palpation: abdomen soft; abdomen nontender, no guarding and abdomen not rigid Neurologic: CN's II-XI intact bilaterally and moves all extremities; no focal motor deficits Motor/Sensory: no tremor Psychiatric: A+Ox3, euthymic affect Results & Data ([facility]) Vital Signs (Past 12 Hours) Vital Signs Temp Pulse Pulse Resp BP BP Pulse Ox 03/04/21 15:27 37 C 78 16 111/76 95 03/04/21 14:52 96 H 03/04/21 11:43 36.8 C 93 H 16 98/65 L 91 03/04/21 07:38 36.7 C 110 H 16 104/69 97 03/04/21 07:36 88
[2021-03-04] MEDS: BENZONATATE 100 MG CAPSULE PO SCH (20:42)
[2021-03-05] MEDS: POLYETHYLENE (MIRALAX) 17 GM PACK PO PRN (08:21)
[2021-03-05] MEDS: FUROSEMIDE 60 MG in SYRINGE 0 ML IV SCH (08:22)
[2021-03-05] MEDS: METOPROLOL SUCC 25MG EXT REL TAB PO SCH ×2 (08:22→20:39)
[2021-03-05] MEDS: FERROUS SULFATE 325 MG TAB PO SCH (08:23)
[2021-03-05] MEDS: PANTOprazole 40 MG TAB PO SCH ×2 (08:24→20:40)
[2021-03-05] MEDS: ALFUZOSIN HCL 10 MG TAB PO SCH (08:24)
[2021-03-05] MEDS: AMIODARONE 200 MG TAB PO SCH (08:24)
[2021-03-05] MEDS: GABAPENTIN 400 MG CAP PO SCH ×2 (08:25→20:40)
[2021-03-05] MEDS: METHOCARBAMOL 500 MG TABLET PO SCH ×2 (08:25→20:40)
[2021-03-05] MEDS: CALCIUM 600MG + VIT D 400 IU TAB PO SCH (08:25)
[2021-03-05] MEDS: BENZONATATE 100 MG CAPSULE PO SCH ×3 (08:25→20:38)
[2021-03-05] MEDS: APIXABAN 2.5 MG TAB PO SCH ×2 (08:26→20:40)
[2021-03-05] MEDS: INSULIN ASPART 100 UNITS/ML 3 ML PEN SC SCH ×4 (08:27→20:41)
--- NOTE | 2021-03-05 10:46 | Hospitalist Progress Note ---
Date of Service March 05, 2021 Assessment & Plan (1) Abdominal pain: Plan: Nonproductive cough: Persistent symptoms, ordered for Robitussin as needed, Ordered chest x-ray, start on empiric antibiotic doxycycline Ongoing cough: Possible due to decompensated CHF? Continue diuresis as per cardiology Abdominal pain: Feels abdominal distention has improved after diuresis At present having chest and abdominal pain due to constant coughing No nausea vomiting or diarrhea Advanced/severe cardiomyopathy with presentation of acute on chronic systolic heart failure volume overload With amyloid cardiomyopathy Appreciate input from cardiology, Patient is continued with the diuresis Overall prognosis remains poor (2) Acute on chronic systolic heart failure: Plan: ECHO shows severe cardiomyopathy with ejection fraction 25% Possibly secondary to amyloid cardiomyopathy Appreciate input per cardiology, IV Lasix continued, Overall prognosis remains poor - Deconditioning : due to above , PT/OT eval appreciated recommend rehab referral made to [facility] A flutter: Rate controlled, on beta-teetee Eliquis for stroke prophylaxis dose reduced to 2.5 mg BID for poor renal clearance Continue to monitor BMP, Eliquis will be discontinued if GFR is less than 15 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 with decompensated CHF, overall prognosis remains poor Acute renal failure with CKD stage III: Possible secondary to poor perfusion with decompensated CHF Also 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 Appreciate input from nephrology, Continue with diuresis and with close monitoring of BMP Avoid NSAIDs and contrast studies (3) Diabetes mellitus, type II: Plan: Insulin sliding scale: (4) 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, 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 (5) CKD (chronic kidney disease), stage III: Plan: As discussed above (6) Paroxysmal atrial fibrillation: Plan: Developed a flutter/plan discussed above (7) Chronic back pain: Plan: -Continue his home pain medications -oxycodone, gabapentin (8) Elevated troponin: Plan: Due to advanced cardiomyopathy decompensated CHF (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: Plan: - Hx of such, chronic - PT/OT consults Plan: DVT ppx: - teds, eliquis BID CODE: Full/overall prognosis remains very poor, need to address goals of care and readdress CODE STATUS: Patient is somewhat in denial for severity of his medical condition, Patient son is traveling from out of country to [facility] tomorrow, Patient is willing to update the son, Dispo: To be determined, overall prognosis remains very poor Admission and Anticipated Discharge Date Admission Date: March 01, 2021 Subjective Follow-up visit for decompensated CHF/acute renal failure: Patient reports is not able to sleep last night due to ongoing cough, causing chest or abdominal pain Now feels short of breath due to coughing: No sputum production, denies of any posterior nasal drip Shannen Taylor was ordered scheduled, and reports no improvement in Continue with the diuresis, will add as needed Cony Does not have any fever or chills, No diarrhea or loose stool no nausea vomiting, ongoing abdominal pain due to coughing spell Review of Systems Review of Systems: All systems reviewed & are unremarkable except as noted in Subjective Physical Exam Constitutional: + ill appearing; no acute distress Eyes: PERRL, conjunctivae normal, anicteric sclerae ENMT: external ear and nose normal, oropharynx normal Neck: trachea midline, no thyromegaly Respiratory: Auscultation: + diminished lung sounds and + rales Cardiovascular: Rate/Rhythm: + irregularly irregular Extremities: + edema Gastrointestinal (Abdomen): Percussion/Palpation: abdomen soft; abdomen nontender Musculoskeletal: Extremities: + abnormal strength (generalized weakness ) Skin: no rashes, warm and dry Neurologic: PERRL, EOMI, accommodation nl, no face palsy, no dysarthria Psychiatric: A+Ox3, euthymic affect Results & Data Results & Data ([facility]) Vital Signs (Past 12 Hours) Vital Signs Temp Pulse Pulse Resp BP Pulse Ox 03/05/21 10:00 96 03/05/21 07:44 37.3 C 92 H 16 100/72 97 03/05/21 02:48 37.0 C 85 18 91/55 L 93 03/05/21 00:16 86
[2021-03-05] MEDS: guaiFENesin/DEXTROM SYRUP 200MG/20MG 10ML UDC PO PRN (11:08)
[2021-03-05] MEDS: FUROSEMIDE 80 MG in SYRINGE 0 ML IV SCH ×2 (11:08→15:28)
[2021-03-05 11:12] LABS: BUN Creatinine Ratio 18.6 (10-20); Calcium 8.5 mg/dl (8.5-10.1); Creatinine Clr Calc Pharmacy 24.8 ml/min; Est GFR (African American) 27.8 ml/min; Potassium 3.7 mmol/L (3.5-5.1)
--- NOTE | 2021-03-05 11:15 | Nephrology Progress Note ---
Date of Service March 05, 2021 Assessment & Plan (1) Acute kidney injury: Plan: Patient with acute kidney injury due to cardiorenal syndrome. Baseline creatinine around high twos. Admission creatinine of 3.2. Creatinine down to 2.45 from 2.8. Electrolytes are stable. Patient still with signs of volume overload. -Monitor renal function with daily BMP -Monitor input output -Fluid limit of 1.2 L daily. (2) Acute on chronic systolic heart failure: Plan: Patient with worsening CHF due to cardiac amyloidosis. EF of about 20%. -Continue diuresis. Increase IV Lasix to 80 mg twice daily. Target -1 L to 2 L daily. If patient is not achieving target, recommend starting Lasix drip at 20 mg/h after 100 mg bolus. -2 g sodium diet Admission and Anticipated Discharge Date Admission Date: March 01, 2021 Subjective Seen in follow-up for acute kidney injury on CKD and CHF. Main complaint today shortness of breath and weakness. Patient was under net -300 mL. No urinary symptoms. Review of Systems Review of Systems: All other systems were reviewed and negative except as noted in HPI Physical Exam Physical Exam: General exam: Appears comfortable, no acute distress HEENT: Pupils are equal and reactive to light Neck: No JVD, neck is supple trachea is midline Respiratory system: Clear breath sounds bilaterally. Gastrointestinal: Abdomen is soft, non distended, non tender, bowel sounds are present CVS: Regular rate and rhythm. No murmurs, rubs or gallops Musculoskeletal: No joint or muscle tenderness Extremities: Non tender, 1+ edema, peripheral pulses are present Neuro: Oriented, no tremors, no focal neurological deficits Skin: No rashes Results & Data ([facility]) Vital Signs (Past 12 Hours) Vital Signs Temp Pulse Pulse Resp BP Pulse Ox 03/05/21 10:00 96 03/05/21 07:44 37.3 C 92 H 16 100/72 97 03/05/21 02:48 37.0 C 85 18 91/55 L 93 03/05/21 00:16 86 Laboratory Results 03/05/21 10:43
[2021-03-05 11:17] LABS: Hematocrit (blood only) 42.8 % (42-52); Hemoglobin 14.7 g/dL (14.0-18.0); Mean Corpuscular Hemoglobin 28.5 pg (25-34); Mean Corpuscular Hgb Conc 34.3 g/dL (32-36); Mean Corpuscular Volume 83.1 fL (80-100); Mean Platelet Volume 10.2 fL (7.4-10.4); Platelet Count 150 K/uL (130-400); RDW Coefficient of Variation 18.4 % (11.5-14.5); RDW Standard Deviation 56.1 fL (36.4-46.3); Red Blood Count 5.15 M/uL (4.7-6.1); White Blood Count 9.48 K/uL (4.8-10.8)
[2021-03-05] MEDS: DOXYCYCLINE HYCLATE 100 MG CAP PO SCH ×2 (12:49→20:38)
--- NOTE | 2021-03-05 13:54 | XRay Report ---
XR chest 1V portable CLINICAL HISTORY: cough /CHF COMPARISON STUDY: March 02, 2021 FINDINGS: No definite pneumothorax seen however evaluation of bilateral lung apices is limited due to overlying patient's chin.. Moderate layering right pleural effusion and extension of pleural fluid to the minor fissure are seen on the right. No definite left pleural effusion is seen. Mild atelectasis is seen at bilateral bases, unchanged since prior. Moderate cardiomegaly is unchanged since prior. Pulmonary vasculature is obscured.. Osseous structures: Redemonstration of thoracic dextroscoliosis. Minimal degenerative changes of the spine. Stable position of left-sided dual-lead AICD with battery pack partially obscuring left lung parenchy ma. Aorta is calcified. IMPRESSION: 1. CHF pattern with moderate right pleural effusion, stable since prior. ACT 112: Negative or not required by law. The above report was generated using voice recognition software. It may contain grammatical, syntax o r spelling errors. Electronically signed by: Kayli Junior DO 03/05/2021 1:52 PM
--- NOTE | 2021-03-05 14:26 | Cardiology Progress Note ---
Date of Service March 05, 2021 Assessment & Plan (1) Acute on chronic systolic heart failure: Plan: Appreciate nephrology input. Titrate Lasix to 80 mg twice daily. Consider Lasix infusion if unable to achieve 1-2 L/day diuresis. Follow GFR, daily weight, electrolytes, and fluid balance. (2) Familial transthyretin amyloid cardiomyopathy: Plan: Outpatient treatment with patisiran and tafamidis. (3) Paroxysmal atrial fibrillation: Plan: Fair rate control continue metoprolol, amiodarone, and eliquis. (4) Acute kidney injury: Plan: Creatinine trending downward. Monitor daily BMP. Continue diuretic therapy. (5) Cough: Plan: Most likely secondary to congestive heart failure. Continue scheduled dose of Tessalon Perles and guaifenesin/dextromethorphan as needed. Admission and Anticipated Discharge Date Admission Date: March 01, 2021 Subjective Patient seen and examined the bedside. Respiratory status unchanged. Cough improved with addition of Tessalon Perles. Fluid balance mildly negative over the past 24 hours. Creatinine trending downward. Lasix titrated to 80 mg twice daily by nephrology. Denies chest pain or shortness of breath. Telemetry reveals atrial fibrillation with heart rate ranging from 80-90 bpm. Review of Systems Review of Systems: All systems reviewed & are unremarkable except as noted in Subjective Physical Exam Constitutional: well developed, well nourished and + ill appearing Respiratory: no respiratory distress and no labored breathing Auscultation: + rales (bases B/L); no rhonchi and no wheezes Cardiovascular: Rate/Rhythm: + irregularly irregular Heart Sounds: normal S1 and normal S2; no murmur Extremities: + edema (1+ bilateral pedal and ankle edema.) Gastrointestinal (Abdomen): Inspection/Auscultation: normal bowel sounds; abdomen not distended Percussion/Palpation: abdomen soft; abdomen nontender, no guarding and abdomen not rigid Neurologic: CN's II-XI intact bilaterally and moves all extremities; no focal motor deficits Motor/Sensory: no tremor Psychiatric: A+Ox3, euthymic affect Results & Data ([facility]) Vital Signs (Past 12 Hours) Vital Signs Temp Pulse Resp BP Pulse Ox 03/05/21 10:00 96 03/05/21 07:44 37.3 C 92 H 16 100/72 97 03/05/21 02:48 37.0 C 85 18 91/55 L 93
[2021-03-05] MEDS ORDERED: ALUMINUM/MAGNESIUM/SIMETH (MAALOX MAX) 30 ML UDC PO STA (19:37)
[2021-03-05] MEDS ORDERED: FAMOTIDINE 20 MG in SYRINGE 3 ML IV STA (23:26)
[2021-03-06] MEDS: CALCIUM 600MG + VIT D 400 IU TAB PO SCH (06:11)
[2021-03-06] MEDS: FUROSEMIDE 80 MG in SYRINGE 0 ML IV SCH ×2 (06:11→15:08)
[2021-03-06] MEDS: FERROUS SULFATE 325 MG TAB PO SCH (06:11)
[2021-03-06] MEDS: AMIODARONE 200 MG TAB PO SCH (07:46)
[2021-03-06] MEDS: ALFUZOSIN HCL 10 MG TAB PO SCH (07:46)
[2021-03-06] MEDS: BENZONATATE 100 MG CAPSULE PO SCH ×3 (07:47→20:12)
[2021-03-06] MEDS: APIXABAN 2.5 MG TAB PO SCH ×2 (07:47→20:12)
[2021-03-06] MEDS: GABAPENTIN 400 MG CAP PO SCH ×2 (07:48→20:12)
[2021-03-06] MEDS: DOXYCYCLINE HYCLATE 100 MG CAP PO SCH ×2 (07:48→20:10)
[2021-03-06] MEDS: METOPROLOL SUCC 25MG EXT REL TAB PO SCH ×2 (07:49→20:10)
[2021-03-06] MEDS: PANTOprazole 40 MG TAB PO SCH ×2 (07:49→20:12)
[2021-03-06] MEDS: METHOCARBAMOL 500 MG TABLET PO SCH ×2 (07:49→20:10)
[2021-03-06] MEDS: INSULIN ASPART 100 UNITS/ML 3 ML PEN SC SCH ×4 (08:18→20:15)
[2021-03-06 08:40] LABS: BUN Creatinine Ratio 18.7 (10-20); Calcium 8.7 mg/dl (8.5-10.1); Creatinine Clr Calc Pharmacy 26.4 ml/min; Est GFR (Non-African American) 25.9 ml/min; Potassium 3.7 mmol/L (3.5-5.1)
--- NOTE | 2021-03-06 09:18 | Nephrology Progress Note ---
Date of Service March 06, 2021 Assessment & Plan Admission and Anticipated Discharge Date Admission Date: March 01, 2021 Subjective having some abd pain now. NO edema now. 1350 ml urine GENERAL: Elderly black male who is awake, alert and oriented. He is not in any distress, although he does have limitation. CHEST: Bilateral decreased breath sounds and occasional crackles. CARDIOVASCULAR: S1 and S2, regular. Soft systolic murmur heard. ABDOMEN: Soft, nontender. EXTREMITIES: NO edema. LABORATORY TESTS: Creat trending down now and down to 2.3 Urine test shows no blood, no protein and was a very bland urine sediment. Chest x-ray shows worsening right pleural effusion, CHF pattern. ASSESSMENT AND PLAN: An 80-year-old male with a known history of chronic kidney disease, which seems to be worsening with the most recent outpatient creatinine of 3.2 as well as history of amyloidosis-related cardiomyopathy, on treatment. Now admitted with nonspecific abdominal back pain and some fluid retention. I have been consulted for [id number] renal failure. [id number] renal failure: CHF Creat getting getting better and even better than recent baseline outpt. I also reviewed cardiology note regarding the advanced status of his cardiac problem. Does not appear he will be a candidate for dialysis if such need arise. His urine sediment was very bland, which is good as it rules out most of the other causes of renal failure. Given improving fluid status and improving creat--continue Lasix 80 iv bid for now. Results & Data ([facility]) Vital Signs (Past 12 Hours) Vital Signs Temp Pulse Pulse Resp BP BP Pulse Ox 03/06/21 07:42 37.0 C 95 H 18 103/62 96 03/06/21 03:46 36.7 C 44 L 18 103/69 97 03/06/21 00:02 83 03/05/21 23:07 37.2 C 99 H 18 114/76 92
--- NOTE | 2021-03-06 10:27 | Cardiology Progress Note ---
Date of Service March 06, 2021 Assessment & Plan (1) Acute on chronic systolic heart failure: Plan: Nephrology input appreciated. Continue IV furosemide as presently prescribed. Follow GFR, daily weight, electrolytes, and fluid balance. (2) Familial transthyretin amyloid cardiomyopathy: Plan: Outpatient treatment with patisiran and tafamidis. (3) Paroxysmal atrial fibrillation: Plan: Fair rate control noted. Continue metoprolol, amiodarone, and reduced dose Eliquis anticoagulation as presently prescribed. ? very careful use of digoxin (0.0625 mg every 48 hours) (4) Acute kidney injury: Plan: Creatinine trending downward. Monitor daily BMP. Continue diuretic therapy (5) Cough: Plan: Most likely secondary to congestive heart failure. Admission and Anticipated Discharge Date Admission Date: March 01, 2021 Supervising Physician Co-Signing Physician Notes Patient was seen and personally examined. Chart, medications, telemetry reviewed. Assessment and plan as above. Overall signs and symptoms of heart failure have improved though underlying pathology, amyloid cardiomyopathy/nephropathy remains. Atrial fibrillation trending toward slightly better control If renal function stabilizes or trends further downward will likely add low-dose digoxin to regimen. Patient with pacemaker defibrillator in place Subjective Patient seen and examined. Chart, medications, and telemetry reviewed. Telemetry reveals atrial fibrillation ranging from the 80s to the 1 teens. Patient feels better today as compared to yesterday. He continues to experience shortness of breath above baseline with an associated cough, especially when attempting to talk for long periods of time. Abdominal discomfort has improved though remains distended. Peripheral edema has improved. No chest pain. No overt palpitations. Creatinine improved compared to yesterday. The patient's son along with his 2 children arrived from [place] this morning around 2 AM. Review of Systems Review of Systems: Complete review of systems is otherwise as stated above, negative, or noncontributory. Physical Exam Physical Exam: General: A&Ox3. NAD. HENT: Normocephalic. Atraumatic. Eyes: PER. Conjunctiva pink, sclera clear. Neck: + JVD. Heart: Irregularly irregular around 100 bpm. Systolic murmur. No rub. No gallop. PMI is displaced. Lungs: Decreased/diminished. Left basilar rales. Abdomen: +BS. Distended. Extremities: No edema on the left. Trace to 1+ distal right lower extremity edema. No clubbing. No cyanosis Limited neurological examination is without focal deficits. Results & Data ([facility]) Vital Signs (Past 12 Hours) Vital Signs Temp Pulse Pulse Resp BP BP Pulse Ox 03/06/21 07:42 37.0 C 95 H 18 103/62 96 03/06/21 03:46 36.7 C 44 L 18 103/69 97 03/06/21 00:02 83 03/05/21 23:07 37.2 C 99 H 18 114/76 92 Laboratory Results Laboratory Results - last 24 hr 03/05/21 03/05/21 03/05/21 10:43 11:00 11:00 WBC 9.48 RBC 5.15 Hgb 14.7 Hct 42.8 MCV 83.1 MCH 28.5 MCHC 34.3 RDW Std Deviation 56.1 H RDW Coeff of Daria 18.4 H Plt Count 150 MPV 10.2 Sodium 137 Potassium 3.7 Chloride 98 Carbon Dioxide 37 H Anion Gap 2.0 L BUN 46 H Creatinine 2.45 H D Est Cr Clr Drug Dosing 24.8 Est GFR ( Amer) 27.8 Est GFR (Non-Af Amer) 24.0 BUN/Creatinine Ratio 18.6 Glucose 172 H POC Glucose Calcium 8.5 Procalcitonin 0.46 03/05/21 03/05/21 03/05/21 11:31 16:28 20:41 WBC RBC Hgb Hct MCV MCH MCHC RDW Std Deviation RDW Coeff of Daria Plt Count MPV Sodium Potassium Chloride Carbon Dioxide Anion Gap BUN Creatinine Est Cr Clr Drug Dosing Est GFR ( Amer) Est GFR (Non-Af Amer) BUN/Creatinine Ratio Glucose POC Glucose 189 H 167 H 175 H Calcium Procalcitonin 03/06/21 03/06/21 07:48 08:08 WBC RBC Hgb Hct MCV MCH MCHC RDW Std Deviation RDW Coeff of Daria Plt Count MPV Sodium 138 Potassium 3.7 Chloride 99 Carbon Dioxide 35 H Anion Gap 4.0 BUN 43 H Creatinine 2.30 H Est Cr Clr Drug Dosing 26.4 Est GFR ( Amer) 30.0 Est GFR (Non-Af Amer) 25.9 BUN/Creatinine Ratio 18.7 Glucose 140 H POC Glucose 151 H Calcium 8.7 Procalcitonin
--- NOTE | 2021-03-06 15:57 | Hospitalist Progress Note ---
Date of Service March 06, 2021 Assessment & Plan (1) Abdominal pain: Plan: Nonproductive cough: Symptom improved after continue diuresis Lasix dose increased to 80 mg IV twice daily patient input from nephrology Possible secondary to decompensated CHF, continue p.o. doxycycline for bronchitis Abdominal pain: Symptom has improved, Feels abdominal distention has improved after diuresis Advanced/severe cardiomyopathy with presentation of acute on chronic systolic heart failure volume overload With amyloid cardiomyopathy Appreciate input from cardiology, Patient is continued with the diuresis Overall prognosis remains poor Update given to patient's son at bedside wants to have a detailed discussion with patient's primary cardiology Dr. Llamas (2) Acute on chronic systolic heart failure: Plan: ECHO shows severe cardiomyopathy with ejection fraction 25% Possibly secondary to amyloid cardiomyopathy Patient's orthopnea abdominal distention cough improved after increasing Lasix dose to 80 mg IV twice daily . 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 Appreciate input from nephrology, Continue with diuresis and with close monitoring of BMP Renal function has been stable Avoid NSAIDs and contrast studies (3) Diabetes mellitus, type II: Plan: Insulin sliding scale: (4) 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, 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 (5) CKD (chronic kidney disease), stage III: Plan: As discussed above (6) Paroxysmal atrial fibrillation: Plan: Developed a flutter/plan discussed above (7) Chronic back pain: Plan: -Continue his home pain medications -oxycodone, gabapentin (8) Elevated troponin: Plan: Due to advanced cardiomyopathy decompensated CHF (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 Llamas Dispo: Transfer to rehab in next 1-2 days Admission and Anticipated Discharge Date Admission Date: March 01, 2021 Subjective Patient seen at bedside, son and grandkids are visiting, Patient reports cough has improved overnight, still have dyspnea on exertion no complaint of chest heaviness or chest tightness Continues to feel very fatigued and tired, No fever or chills Hoping to be discharged to rehab soon Review of Systems Review of Systems: All systems reviewed & are unremarkable except as noted in Subjective Physical Exam Constitutional: + ill appearing; no acute distress Eyes: PERRL, conjunctivae normal, anicteric sclerae ENMT: external ear and nose normal, oropharynx normal Neck: trachea midline, no thyromegaly Respiratory: Auscultation: + diminished lung sounds and + rales Cardiovascular: Rate/Rhythm: + irregularly irregular Extremities: + edema Gastrointestinal (Abdomen): Percussion/Palpation: abdomen soft; abdomen nontender Musculoskeletal: Extremities: + abnormal strength (generalized weakness ) Skin: no rashes, warm and dry Neurologic: PERRL, EOMI, accommodation nl, no face palsy, no dysarthria Psychiatric: A+Ox3, euthymic affect Results & Data Results & Data ([facility]) Vital Signs (Past 12 Hours) Vital Signs Temp Pulse Resp BP BP Pulse Ox 03/06/21 15:06 103 H 106/64 94 03/06/21 11:11 37.2 C 94 H 18 106/75 93 03/06/21 07:42 37.0 C 95 H 18 103/62 96
[2021-03-07] MEDS: CALCIUM 600MG + VIT D 400 IU TAB PO SCH (06:20)
[2021-03-07] MEDS: FERROUS SULFATE 325 MG TAB PO SCH (06:20)
[2021-03-07] MEDS: INSULIN ASPART 100 UNITS/ML 3 ML PEN SC SCH ×4 (07:45→20:22)
[2021-03-07] MEDS: PANTOprazole 40 MG TAB PO SCH ×2 (08:43→20:20)
[2021-03-07] MEDS: METOPROLOL SUCC 25MG EXT REL TAB PO SCH ×2 (08:43→20:21)
[2021-03-07] MEDS: BENZONATATE 100 MG CAPSULE PO SCH ×3 (08:43→20:22)
[2021-03-07] MEDS: FUROSEMIDE 80 MG in SYRINGE 0 ML IV SCH ×2 (08:43→14:54)
[2021-03-07] MEDS: METHOCARBAMOL 500 MG TABLET PO SCH ×2 (08:43→20:20)
[2021-03-07] MEDS: APIXABAN 2.5 MG TAB PO SCH ×2 (08:43→20:21)
[2021-03-07] MEDS: GABAPENTIN 400 MG CAP PO SCH ×2 (08:43→20:21)
[2021-03-07 08:44] LABS: Calcium 8.5 mg/dl (8.5-10.1); Creatinine Clr Calc Pharmacy 27.9 ml/min; Est GFR (Non-African American) 27.6 ml/min; Potassium 3.3 mmol/L (3.5-5.1)
[2021-03-07] MEDS: ALFUZOSIN HCL 10 MG TAB PO SCH (08:44)
[2021-03-07] MEDS: guaiFENesin/DEXTROM SYRUP 200MG/20MG 10ML UDC PO PRN ×3 (08:44→20:19)
[2021-03-07] MEDS: DOXYCYCLINE HYCLATE 100 MG CAP PO SCH ×2 (08:44→20:22)
[2021-03-07] MEDS: AMIODARONE 200 MG TAB PO SCH (08:44)
[2021-03-07] MEDS ORDERED: POTASSIUM CHLORIDE 10 MEQ TABCR PO ONE (11:07)
--- NOTE | 2021-03-07 11:08 | Cardiology Progress Note ---
Date of Service March 07, 2021 Assessment & Plan (1) Acute on chronic systolic heart failure: Plan: Nephrology input appreciated. Continue IV diuresis. Follow GFR, daily weight, electrolytes, and fluid balance. Supplement potassium orally. (2) Familial transthyretin amyloid cardiomyopathy: Plan: Outpatient treatment with patisiran and tafamidis. Limited options discussed. Appears end stage, as discussed. (3) Paroxysmal atrial fibrillation: Plan: Rates acceptably controlled. Continue metoprolol, amiodarone, and reduced dose Eliquis anticoagulation as presently prescribed. (4) Acute kidney injury: Plan: Creatinine trending downward. Monitor daily BMP. Continue diuretic therapy (5) Cough: Plan: Most likely secondary to congestive heart failure. Follow. Admission and Anticipated Discharge Date Admission Date: March 01, 2021 Supervising Physician Co-Signing Physician Notes Patient was seen and personally examined. Chart, medications, telemetry reviewed. Assessment and plan as above. Overall signs and symptoms of heart failure have improved though underlying pathology, amyloid cardiomyopathy/nephropathy remains. Atrial fibrillation trending toward slightly better control Abdominal distention less pronounced. Overall prognosis remains limited given amyloid infiltration of heart Subjective Patient seen and examined. Chart, medications, and telemetry reviewed. Telemetry with atrial fibrillation/flutter with rates in the 80's to 100's. Ongoing cough and dyspnea. No abdominal discomfort. Stable mild right greater than left lower extremity edema. No chest pain. No overt palpitations. Creatinine improved compared to yesterday. Mild hypokalemia noted on AM labs. Review of Systems Review of Systems: Complete review of systems is otherwise as stated above, negative, or noncontributory. Physical Exam Physical Exam: General: A&Ox3. NAD. HENT: Normocephalic. Atraumatic. Eyes: PER. Conjunctiva pink, sclera clear. Neck: + JVD. Heart: Irregularly irregular around 100 bpm. Systolic murmur. No rub. No gallop. PMI is displaced. Lungs: Decreased/diminished. Left basilar rales. Abdomen: +BS. Distended. Extremities: No edema on the left. Trace to 1+ distal right lower extremity edema. No clubbing. No cyanosis Limited neurological examination is without focal deficits. Results & Data ([facility]) Vital Signs (Past 12 Hours) Vital Signs Temp Pulse Pulse Resp BP Pulse Ox 03/07/21 07:29 36.7 C 74 18 103/63 90 03/07/21 04:34 36.8 C 76 18 97/63 L 97 03/06/21 23:58 107 H Laboratory Results Laboratory Results - last 24 hr 03/06/21 03/06/21 03/06/21 11:38 16:55 20:13 Sodium Potassium Chloride Carbon Dioxide Anion Gap BUN Creatinine Est Cr Clr Drug Dosing Est GFR ( Amer) Est GFR (Non-Af Amer) BUN/Creatinine Ratio Glucose POC Glucose 221 H 177 H 168 H Calcium 03/07/21 03/07/21 07:19 07:36 Sodium 139 Potassium 3.3 L Chloride 99 Carbon Dioxide 34 H Anion Gap 5.0 BUN 44 H Creatinine 2.18 H Est Cr Clr Drug Dosing 27.9 Est GFR ( Amer) 32.0 Est GFR (Non-Af Amer) 27.6 BUN/Creatinine Ratio 20.0 Glucose 133 H POC Glucose 149 H Calcium 8.5
--- NOTE | 2021-03-07 11:21 | Nephrology Progress Note ---
Date of Service March 07, 2021 Assessment & Plan Admission and Anticipated Discharge Date Admission Date: March 01, 2021 Subjective having some abd pain now. NO edema now. 1350 ml urine GENERAL: Elderly black male who is awake, alert and oriented. He is not in any distress, although he does have limitation. CHEST: Bilateral decreased breath sounds and occasional crackles. CARDIOVASCULAR: S1 and S2, regular. Soft systolic murmur heard. ABDOMEN: Soft, nontender. EXTREMITIES: NO edema. LABORATORY TESTS: Creat trending down now and down to 2.3 Urine test shows no blood, no protein and was a very bland urine sediment. Chest x-ray shows worsening right pleural effusion, CHF pattern. ASSESSMENT AND PLAN: An 80-year-old male with a known history of chronic kidney disease, which seems to be worsening with the most recent outpatient creatinine of 3.2 as well as history of amyloidosis-related cardiomyopathy, on treatment. Now admitted with nonspecific abdominal back pain and some fluid retention. I have been consulted for [id number] renal failure. [id number] renal failure: CHF Creat getting getting better and even better than recent baseline outpt. I also reviewed cardiology note regarding the advanced status of his cardiac problem. Does not appear he will be a candidate for dialysis if such need arise. His urine sediment was very bland, which is good as it rules out most of the other causes of renal failure. Given both improving fluid status and improving creat--continue Lasix 80 iv bid for now and try to maximize diuretics given oppertunity now. Low K--got 30 already Results & Data ([facility]) Vital Signs (Past 12 Hours) Vital Signs Temp Pulse Pulse Resp BP Pulse Ox 03/07/21 07:29 36.7 C 74 18 103/63 90 03/07/21 04:34 36.8 C 76 18 97/63 L 97 03/06/21 23:58 107 H
--- NOTE | 2021-03-07 18:15 | Hospitalist Progress Note ---
Date of Service March 07, 2021 Assessment & Plan (1) Abdominal pain: Plan: Nonproductive cough: Possible secondary to decompensated CHF, continue p.o. doxycycline for bronchitis( total 5 days ) Symptom improved after continue diuresis symptoms has improved after diuresis Lasix dose increased to 80 mg IV twice daily nephrology following plan to change the diuretics to PO Abdominal pain: Symptom has resolved abdominal fluid retention with decompensated CHF abdominal distention improved after diuresis Advanced/severe cardiomyopathy with presentation of acute on chronic systolic heart failure volume overload With amyloid cardiomyopathy Appreciate input from cardiology, Overall prognosis remains poor had a lengthy discussion with pt -explained is detail the prognosis and progressive worsening of heart function with amylodosis and possible renal failure pt understands the severity of his illness does not want any resuscitative measure or heroic measures when he declines clinically no life support , no dialysis or feeding tube hoping to go to rehab for short time , but in future as disease progresses and diuretics and medication does not help wants treatment would be directed to to keep him comfortable only code status changed to DNR/DNI (2) Acute on chronic systolic heart failure: Plan: ECHO shows severe cardiomyopathy with ejection fraction 25% Possibly secondary to amyloid cardiomyopathy Patient's orthopnea abdominal distention cough improved after increasing Lasix d ose to 80 mg IV twice daily . 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 Appreciate input from nephrology, Continue with diuresis and with close monitoring of BMP Renal function has been stable Avoid NSAIDs and contrast studies (3) Diabetes mellitus, type II: Plan: Insulin sliding scale: (4) 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, 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 (5) CKD (chronic kidney disease), stage III: Plan: As discussed above (6) Paroxysmal atrial fibrillation: Plan: Developed a flutter/plan discussed above (7) Chronic back pain: Plan: -Continue his home pain medications -oxycodone, gabapentin (8) Elevated troponin: Plan: Due to advanced cardiomyopathy decompensated CHF (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: Plan: - Hx of such, chronic - PT/OT consults Plan: DVT ppx: - rob calvillo BID CODE status : DNR/DNI Dispo: Transfer to rehab in next 1-2 days Admission and Anticipated Discharge Date Admission Date: March 01, 2021 Subjective pt seen and examined at beside cough has markedly improved has baseline shortness of breath , no fever or chills waiting to go to rehab Review of Systems Review of Systems: All systems reviewed & are unremarkable except as noted in Subjective Physical Exam Constitutional: + ill appearing; no acute distress Eyes: PERRL, conjunctivae normal, anicteric sclerae ENMT: external ear and nose normal, oropharynx normal Neck: trachea midline, no thyromegaly Respiratory: Auscultation: + diminished lung sounds and + rales Cardiovascular: Rate/Rhythm: + irregularly irregular Extremities: + edema Gastrointestinal (Abdomen): Percussion/Palpation: abdomen soft; abdomen nontender Musculoskeletal: Extremities: + abnormal strength (generalized weakness ) Skin: no rashes, warm and dry Neurologic: PERRL, EOMI, accommodation nl, no face palsy, no dysarthria Psychiatric: A+Ox3, euthymic affect Results & Data Results & Data ([facility]) Vital Signs (Past 12 Hours) Vital Signs Temp Pulse Resp BP BP Pulse Ox 03/07/21 17:54 36.9 C 90 98/62 L 91 03/07/21 14:52 110/76 03/07/21 07:29 36.7 C 74 18 103/63 90
[2021-03-08] MEDS: oxyCODONE HCL IR 5 MG TAB (IMMEDIATE RELEASE) PO PRN ×2 (00:53→12:26)
[2021-03-08] MEDS ORDERED: CYCLOBENZAPRINE HCL 10 MG TAB PO STA (05:16)
[2021-03-08] MEDS: FERROUS SULFATE 325 MG TAB PO SCH (05:37)
[2021-03-08] MEDS: CALCIUM 600MG + VIT D 400 IU TAB PO SCH (05:37)
[2021-03-08] MEDS: FUROSEMIDE 80 MG in SYRINGE 0 ML IV SCH ×2 (07:52→13:58)
[2021-03-08] MEDS: ALFUZOSIN HCL 10 MG TAB PO SCH (07:52)
[2021-03-08] MEDS: METHOCARBAMOL 500 MG TABLET PO SCH ×2 (07:52→20:55)
[2021-03-08] MEDS: AMIODARONE 200 MG TAB PO SCH (07:52)
[2021-03-08] MEDS: GABAPENTIN 400 MG CAP PO SCH ×2 (07:53→20:54)
[2021-03-08] MEDS: PANTOprazole 40 MG TAB PO SCH ×2 (07:53→20:55)
[2021-03-08] MEDS: APIXABAN 2.5 MG TAB PO SCH ×2 (07:53→20:53)
[2021-03-08] MEDS: DOXYCYCLINE HYCLATE 100 MG CAP PO SCH ×2 (07:54→20:53)
[2021-03-08] MEDS: BENZONATATE 100 MG CAPSULE PO SCH ×3 (07:54→20:53)
[2021-03-08] MEDS: METOPROLOL SUCC 25MG EXT REL TAB PO SCH ×2 (08:01→20:55)
[2021-03-08] MEDS: INSULIN ASPART 100 UNITS/ML 3 ML PEN SC SCH ×4 (08:23→20:56)
[2021-03-08 09:05] LABS: Calcium 8.5 mg/dl (8.5-10.1); Est GFR (African American) 34.8 ml/min; Est GFR (Non-African American) 30.1 ml/min; Potassium 3.6 mmol/L (3.5-5.1)
--- NOTE | 2021-03-08 09:18 | Nephrology Progress Note ---
Date of Service March 08, 2021 Assessment & Plan Admission and Anticipated Discharge Date Admission Date: March 01, 2021 Subjective Feeling better. NO edema now. GENERAL: Elderly black male who is awake, alert and oriented. He is not in any distress, although he does have limitation. CHEST: Bilateral decreased breath sounds and occasional crackles. CARDIOVASCULAR: S1 and S2, regular. Soft systolic murmur heard. ABDOMEN: Soft, nontender. EXTREMITIES: NO edema. LABORATORY TESTS: Creat trending down now and down to 2.0 Urine test shows no blood, no protein and was a very bland urine sediment. Chest x-ray shows worsening right pleural effusion, CHF pattern. ASSESSMENT AND PLAN: An 80-year-old male with a known history of chronic kidney disease, which seems to be worsening with the most recent outpatient creatinine of 3.2 as well as history of amyloidosis-related cardiomyopathy, on treatment. Now admitted with nonspecific abdominal back pain and some fluid retention. I have been consulted for acksi-ik-qjlhwer renal failure. Derxa-hy-fboessg renal failure: CHF Creat getting better. Now even better than recent baseline outpt. I also reviewed cardiology note regarding the advanced status of his cardiac problem. Does not appear he will be a candidate for dialysis if such need arise. His urine sediment was very bland, which is good as it rules out most of the other causes of renal failure. Given both improving fluid status and improving creat--continue Lasix 80 iv bid for now till AM tomorrow and try to maximize diuretics given opportunity now. Add k.cl 10 bid for now to keep K normal. Results & Data ([facility]) Vital Signs (Past 12 Hours) Vital Signs Temp Pulse Pulse Resp BP BP Pulse Ox 03/08/21 07:52 36.8 C 90 19 100/67 90 03/08/21 02:53 36.8 C 86 18 93/66 L 91 03/07/21 23:21 88 03/07/21 22:58 36.9 C 86 18 93/57 L 93
[2021-03-08] MEDS ORDERED: PROMETHAZINE HCL 12.5 MG in SODIUM CHLORIDE 0.9% 50 ML IV STA (10:34)
--- NOTE | 2021-03-08 12:26 | Cardiology Progress Note ---
Date of Service March 08, 2021 Assessment & Plan (1) Acute on chronic systolic heart failure: Plan: Continue intravenous Lasix 80 mg twice daily. Appreciate nephrology input. Follow GFR, daily weight, electrolytes, and fluid balance. 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 Outpatient treatment with patisiran and tafamidis. Palliative care consultation appropriate. (3) Paroxysmal atrial fibrillation: Plan: Adequate rate control continue metoprolol, amiodarone, and eliquis. (4) Acute kidney injury: Plan: Creatinine trending downward. Monitor daily BMP. Continue diuretic therapy. Admission and Anticipated Discharge Date Admission Date: March 01, 2021 Subjective Patient seen and examined at the bedside. Less active today. Notes cough improved with addition of antitussive medication. Creatinine continues to trend downward. Fluid balance -714 cc. Fair heart rate control. Atrial fibrillation 80-90s. Reports significant fatigue. No chest discomfort or heaviness. Review of Systems Review of Systems: All systems reviewed & are unremarkable except as noted in Subjective Physical Exam Constitutional: well developed, well nourished and + ill appearing Respiratory: no respiratory distress and no labored breathing Auscultation: + diminished lung sounds (Poor effort, bases bilaterally); no rales (bases B/L), no rhonchi and no wheezes Cardiovascular: Rate/Rhythm: + irregularly irregular Heart Sounds: normal S1 and normal S2; no murmur Extremities: + edema (Trace to mild pedal edema) Gastrointestinal (Abdomen): Inspection/Auscultation: normal bowel sounds; abdomen not distended Percussion/Palpation: abdomen soft; abdomen nontender, no guarding and abdomen not rigid Neurologic: CN's II-XI intact bilaterally and moves all extremities; no focal motor deficits Motor/Sensory: no tremor Psychiatric: A+Ox3, euthymic affect Results & Data ([facility]) Vital Signs (Past 12 Hours) Vital Signs Temp Pulse Resp BP BP Pulse Ox 03/08/21 12:13 36.5 C 61 18 107/74 93 03/08/21 07:52 36.8 C 90 19 100/67 90 03/08/21 02:53 36.8 C 86 18 93/66 L 91
[2021-03-08] MEDS ORDERED: ONDANSETRON INJ 2 MG/ML 2 ML VIAL IV ONE (12:33)
[2021-03-08] MEDS ORDERED: PROMETHAZINE HCL 12.5 MG in SODIUM CHLORIDE 0.9% 50 ML IV PRN (12:34)
--- NOTE | 2021-03-08 14:37 | XRay Report ---
KUB HISTORY: Acute generalized abdominal pain with distention distended belly COMPARISON: CT abdomen pelvis 03/01/2021 FINDINGS: Surgical clips of the abdominal right lower quadrant. Mild gaseous distention of large and small bowel. Mild fecal retention of the right hemicolon. No pneumatosis or pneumoperitoneum. No urol ith identified. No acute fracture. Cardiomegaly with partially imaged pacer/AICD leads. IMPRESSION: Mild gaseous distention of the large and small bowel suggestive of ileus. Distal obstruction could ap pear similarly. Follow-up recommended. ACT 112: Negative or not required by law. The above report was generated using voice recognition software. It may contain grammatical, syntax o r spelling errors. Electronically signed by: Quentin Phelps M.D. 03/08/2021 2:35 PM
[2021-03-08] MEDS: POTASSIUM CHLORIDE 10 MEQ TABCR PO SCH ×2 (15:08→20:55)
--- NOTE | 2021-03-08 16:16 | Hospitalist Progress Note ---
Date of Service March 08, 2021 Assessment & Plan (1) Abdominal pain: (2) Acute on chronic systolic heart failure: (3) Cardiac amyloidosis: Plan: 1. Abdominal Pain pt has worsening non productive cough since yesterday His belly was soft with decreased bowel sounds and seemed little distended today. His last BM was yesterday. XR KUB showed: Mild gaseous distention of the large and small bowel suggestive of ileus. Recommend follow up. likely from oxycodone use, will give a trial of relistor tomorrow AM Will put him on liquid diet, f/u with XR KUB tomorrow AM and reassess tomorrow A M. f/u CBC yasir AM. 2. 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 Currently on IV lasix 80 mg BID. along with 10 meq KCl BID. Monitor daily K+ levels Pt on RA, and has improved after continued diuresis. 3. Acute on Chronic Renal Failure Patient's creatine getting better than his outpatient baseline of 3.2 per nephrology Pt on iv lasix per nephro recs. continue to montior electrolytes daily Avoid NSAIDs and contrast studies. 4. Bronchitis Pt complaining of dry cough since couple of days. c/w doxy for total of 5 days. Stop date 03/12/21 c/w [facility] 5. Deconditioning due to above , PT/OT nick londono recommends inpatient rehab 6. Aflutter Rate controlled, on beta-teetee Eliquis for stroke prophylaxis dose reduced to 2.5 mg BID for poor renal clearance 7. 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 Hyperglycemia Last A1C of 6.2, on sliding scale inpatient, consulted pharmacy for management. Disposition: ~Did peer to peer with his insurance company for inpatient rehab, they have to follow up with the acceptance or denial. CM aware. In the meantime, consulted palliative care. Will be DC'd when accepted and if no new medical complaints arise. ~Prior week hospitalist had a lengthy discussion with pt - explained is detail the prognosis and progressive worsening of heart function with amylodosis and possible renal failure. Pt understands the severity of his illness, doesn't want any resuscitative measures/heroic measures and no life support/dialysis/feeding tube when he declines clinically. ~Hoping to go to rehab for short time , but in future as disease progresses and diuretics and medication does not help wants treatment would be directed to to keep him comfortable only code status changed to DNR/DNI Admission and Anticipated Discharge Date Admission Date: March 01, 2021 Subjective Patient was lying down in bed, in mild distress due to cough, on RA. Patient denies Headache, Dizziness, Fever, Chills, Sore throat, mucus with cough, Chest pain, palpitations, SOB, Belly pain at rest but present with coughing, pain/burning while passing urine. Last Bowel movement [yesterday]. No issues overnight. Pt's cough is under control during the day and feels much better. Patient wanted to be tested for COVID. Prn nausea meds has been added. Physical Exam Physical Exam: GENERAL: Alert and oriented x3. mild distress d/t cough, on RA. HEENT: No pallor, no icterus. Pupils equal, round and reactive to light. Oral mucosa moist. NO erythema of throat NECK: No JVD, no neck masses. HEART: S1 and S2 heard. Regular rate and rhythm. No murmur, no gallop. No edema noted. RESPIRATORY SYSTEM: Normal AP diameter. No accessory muscle use. No wheezing, no crackles. Decreased breath sounds bibasal, poor inspiratory effort. ABDOMEN: Soft, bowel sounds decreased, nontender, some distention noted. CENTRAL NERVOUS SYSTEM: Alert and oriented x3. No facial droop. Speech is c lear. Obeys simple commands. Moves extremities. EXTREMITIES: No edema, no erythema seen. Results & Data Results & Data ([facility]) Vital Signs (Past 12 Hours) Vital Signs Temp Pulse Resp BP BP Pulse Ox 03/08/21 15:38 36.5 C 72 18 101/76 92 03/08/21 12:13 36.5 C 61 18 107/74 93 03/08/21 07:52 36.8 C 90 19 100/67 90 (1) Abdominal pain Abdominal location: generalized Qualified Code(s): R10.84 - Generalized abdominal pain
[2021-03-08] MEDS ORDERED: PHARMACY GLYCEMIC MGMT CONSULT PRN (18:08)
[2021-03-09] MEDS: FUROSEMIDE 80 MG in SYRINGE 0 ML IV SCH ×2 (06:10→13:35)
[2021-03-09] MEDS: FERROUS SULFATE 325 MG TAB PO SCH (06:10)
[2021-03-09] MEDS: CALCIUM 600MG + VIT D 400 IU TAB PO SCH (06:10)
[2021-03-09 08:44] LABS: Hematocrit (blood only) 43.6 % (42-52); Hemoglobin 14.8 g/dL (14.0-18.0); Mean Corpuscular Hgb Conc 33.9 g/dL (32-36); Mean Corpuscular Volume 82.4 fL (80-100); Mean Platelet Volume 10.1 fL (7.4-10.4); Platelet Count 181 K/uL (130-400); RDW Coefficient of Variation 18.2 % (11.5-14.5); RDW Standard Deviation 54.7 fL (36.4-46.3); Red Blood Count 5.29 M/uL (4.7-6.1); White Blood Count 7.07 K/uL (4.8-10.8)
[2021-03-09] MEDS: PANTOprazole 40 MG TAB PO SCH ×2 (08:47→21:44)
[2021-03-09] MEDS: AMIODARONE 200 MG TAB PO SCH (08:47)
[2021-03-09] MEDS: POTASSIUM CHLORIDE 10 MEQ TABCR PO SCH ×2 (08:47→21:44)
[2021-03-09] MEDS: ALFUZOSIN HCL 10 MG TAB PO SCH (08:47)
[2021-03-09] MEDS: DOXYCYCLINE HYCLATE 100 MG CAP PO SCH ×2 (08:48→21:43)
[2021-03-09] MEDS: GABAPENTIN 400 MG CAP PO SCH ×2 (08:48→21:43)
[2021-03-09] MEDS: METHOCARBAMOL 500 MG TABLET PO SCH ×2 (08:48→21:43)
[2021-03-09] MEDS: APIXABAN 2.5 MG TAB PO SCH ×2 (08:48→21:42)
[2021-03-09] MEDS: BENZONATATE 100 MG CAPSULE PO SCH ×3 (08:48→21:43)
[2021-03-09] MEDS: METOPROLOL SUCC 25MG EXT REL TAB PO SCH ×2 (08:48→21:44)
[2021-03-09] MEDS: INSULIN ASPART 100 UNITS/ML 3 ML PEN SC SCH ×4 (08:49→21:50)
[2021-03-09] MEDS ORDERED: METHYLNALTREXONE BROMIDE 12 MG/0.6 ML VIAL SQ ONE (09:00)
--- NOTE | 2021-03-09 09:08 | Pharmacy Report ---
Pharmacy Glycemic Short Note 2 - Date of Service March 09, 2021 - Glycemic Short BSG Results (Last 24 hours): 03/08/21 03/08/21 03/08/21 07:49 11:43 16:45 Glucose 155 H POC Glucose 183 H 241 H 03/08/21 03/09/21 20:05 07:36 Glucose POC Glucose 167 H 134 H OUTPATIENT ANTIDIABETIC REGIMEN: * Lantus 20 units SC HS * HbA1c: 6.2% (03/02/21) ASSESSMENT: * ATP is a 80 year old male admitted on 03/01/21 for evaluation of lower abdominal pain, increasing shortness of breath, and increased bilateral leg swelling * Pharmacy consulted for glycemic management on 03/08/21 due to relatively poor inpatient glycemic management thus far (BSGs ranging 149-241 mg/dL over past couple of days) * Novolog tightened last evening (lowered goal range and tightened carb ratio) - will continue * Patient takes basal at HS at home - will give at lunchtime today and plan to step back to HS over next couple of days * 100% basal at home - will look to make 50/50 split while inpatient PLAN FOR INPATIENT GLYCEMIC CONTROL: * Basal insulin - start Lantus * Lantus 10 units SC with lunch * Bolus insulin - tighten * NovoLog per scale ACHS or Q6hrs while NPO * Goal Range: Low 110 mg/dL - High 140 mg/dL * Correction Factor: 25 mg/dL/unit * Nutritional / Prandial insulin per carb ratio of 1 unit per 8 grams CHO consumed PLAN FOR DISCHARGE: * HbA1c of 6.2% is excellent * Resume outpatient regimen upon discharge, provided patient not experiencing hypoglycemia as an outpatient
[2021-03-09 09:19] LABS: BUN Creatinine Ratio 19.6 (10-20); Calcium 8.5 mg/dl (8.5-10.1); Creatinine Clr Calc Pharmacy 27.4 ml/min; Est GFR (African American) 31.3 ml/min; Magnesium 2.6 mg/dl (1.8-2.4); Phosphorus 2.8 mg/dl (2.5-4.9); Potassium 3.7 mmol/L (3.5-5.1)
--- NOTE | 2021-03-09 09:29 | XRay Report ---
KUB HISTORY: Acute generalized abdominal pain with distention f/u of mild bowel distension COMPARISON: KUB 03/08/2021 FINDINGS: Surgical clips of the right lower abdomen redemonstrated. Moderate fecal retention of the r ight hemicolon. Gaseous distention of the stomach and large bowel with decreased small bowel gaseous distention. No renal calculi. No ureteral calculi. No pneumoperitoneum or pneumatosis. Lumbar levosc oliosis. No fracture. IMPRESSION: Moderate fecal retention of the right hemicolon with persistent gaseous distention of the large bowel . ACT 112: Negative or not required by law. The above report was generated using voice recognition software. It may contain grammatical, syntax o r spelling errors. Electronically signed by: Quentin Phelps M.D. 03/09/2021 9:28 AM
--- NOTE | 2021-03-09 09:58 | Nephrology Progress Note ---
Date of Service March 09, 2021 Assessment & Plan Admission and Anticipated Discharge Date Admission Date: March 01, 2021 Subjective Feeling better. No edema now. GENERAL: Elderly black male who is awake, alert and oriented. He is not in any distress, although he does have limitation. CHEST: Bilateral decreased breath sounds and occasional crackles. CARDIOVASCULAR: S1 and S2, regular. Soft systolic murmur heard. ABDOMEN: Soft, nontender. EXTREMITIES: NO edema. LABORATORY TESTS: Creat up a bit today. Urine test shows no blood, no protein and was a very bland urine sediment. Chest x-ray shows worsening right pleural effusion, CHF pattern. ASSESSMENT AND PLAN: An 80-year-old male with a known history of chronic kidney disease, which seems to be worsening with the most recent outpatient creatinine of 3.2 as well as history of amyloidosis-related cardiomyopathy, on treatment. Now admitted with nonspecific abdominal back pain and some fluid retention. I have been consulted for xtstx-ia-vhwyxlj renal failure. Sxjqh-tz-mxngjfb renal failure: CHF Creat up a bit today but still better than his recent labs outpt. I think given exam and labs we have diuresed him enough now. Stop Iv lasix. Switch to his outpt Diuretics --torsemide 20 bid. Would go up on torsemide lot more before adding metolazone--prefer not be used. Conitnue k.cl 10 bid for now to keep K normal. labs next week--renal panel. Outpt f/u with nephrology within next few weeks. Stable for discharge from renal standpoint. Results & Data ([facility]) Vital Signs (Past 12 Hours) Vital Signs Temp Pulse Resp BP BP Pulse Ox 03/09/21 07:26 36.8 C 78 19 104/72 91 03/09/21 02:50 36.8 C 91 H 18 101/66 90 03/08/21 23:27 36.9 C 80 20 95/66 L 90
--- NOTE | 2021-03-09 10:51 | Cardiology Progress Note ---
Date of Service March 09, 2021 Assessment & Plan (1) Acute on chronic systolic heart failure: Plan: IV diuretic therapy discontinued by nephrology. Torsemide 20 mg twice daily initiated. Nephrology input appreciated. Follow GFR, daily weight, electrolytes, and fluid balance. Moderate right-sided pleural effusion likely contributing to ongoing symptoms of cough and shortness of breath. Will reassess x-ray today and consider referral to pulmonary medicine for thoracentesis. 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 Outpatient treatment with patisiran and tafamidis. Palliative care consultation appropriate. Continue supportive care with walker and diuretics. (3) Paroxysmal atrial fibrillation: Plan: Adequate rate control continue metoprolol, amiodarone, and eliquis. (4) Acute kidney injury: Plan: Stable creatinine. Transition to oral diuretic therapy. Admission and Anticipated Discharge Date Admission Date: March 01, 2021 Subjective Patient seen and examined. Continues to complain of discomfort with cough. Denies orthopnea or PND. Fluid balance -784 cc over last 24 hours. Weight and renal function unchanged. Tolerating current medications. Telemetry reveals atrial fibrillation with heart rate ranging from 80-100 bpm. No signs/symptoms of GI/ blood loss. Due to abdominal discomfort, a KUB was ordered. Right-sided fecal retention noted. Patient continues to complain of cough. Nonproductive. X-ray performed 03/05/2021 demonstrating moderate right-sided pleural effusion. Notes abdominal discomfort relating to abdominal muscle strain. No chest discomfort or heaviness. Review of Systems Review of Systems: All systems reviewed & are unremarkable except as noted in Subjective Physical Exam Constitutional: well developed, well nourished and + ill appearing Respiratory: no respiratory distress and no labored breathing Auscultation: + diminished lung sounds (Poor effort, bases bilaterally); no rales (bases B/L), no rhonchi and no wheezes Cardiovascular: Rate/Rhythm: + irregularly irregular Heart Sounds: normal S1 and normal S2; no murmur Extremities: + edema (Trace to mild pedal edema) Gastrointestinal (Abdomen): Inspection/Auscultation: normal bowel sounds; abdomen not distended Percussion/Palpation: abdomen soft; abdomen nontender, no guarding and abdomen not rigid Neurologic: CN's II-XI intact bilaterally and moves all extremities; no focal motor deficits Motor/Sensory: no tremor Psychiatric: A+Ox3, euthymic affect Results & Data ([facility]) Vital Signs (Past 12 Hours) Vital Signs Temp Pulse Resp BP BP Pulse Ox 03/09/21 07:26 36.8 C 78 19 104/72 91 03/09/21 02:50 36.8 C 91 H 18 101/66 90 03/08/21 23:27 36.9 C 80 20 95/66 L 90
[2021-03-09] MEDS ORDERED: INSULIN GLARGINE SOLOSTAR 100 UNITS/ML 3 ML PEN SC ONE (11:30)
[2021-03-09] MEDS: guaiFENesin/DEXTROM SYRUP 200MG/20MG 10ML UDC PO PRN ×2 (12:04→23:23)
--- NOTE | 2021-03-09 13:22 | XRay Report ---
XR chest 1V portable CLINICAL HISTORY: CHF, right pleural effusion COMPARISON STUDY: Chest radiograph March 05, 2001. FINDINGS: A dual-lead left subclavian pacer/AICD is in place. Cardiomegaly is again noted. A moderate right pleural effusion is similar to prior exam. There is associated right basilar opacity. There is pulmonary vascular congestion. There is no pneumothorax. IMPRESSION: 1. Persistent moderate right pleural effusion with associated right basilar opacity. 2. Cardiomegaly with pulmonary vascular congestion. ACT 112: Negative or not required by law. Electronically signed by: David Baldwin M.D. 03/09/2021 1:21 PM
--- NOTE | 2021-03-09 13:42 | Hospitalist Progress Note ---
Date of Service March 09, 2021 Assessment & Plan (1) Abdominal pain: (2) Acute on chronic systolic heart failure: (3) Cardiac amyloidosis: Plan: #. Abdominal Pain/Constipation Patient's cough and belly pain has improved His belly was soft, non tender and non distended today. His last BM was yesterday. He is on oxycodone prn for pain. He received a dose of relistor today. 03/09 XR KUB showed: Mild gaseous distention of the large and small bowel suggestive of ileus. Recommend follow up. 03/10 XR KUB: Moderate fecal retention of the right hemicolon with persistent gaseous distention of the large bowel Will give him stool softner and since he reported BM yesterday and improvement in belly pain today, we will continue to monitor clinically. DC with stool softener at time of discharge. Advance the diet to soft diet. #. 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 Nephro recs: Stop IV lasix, switch to outpatient torsemide 20 mg BID, maximize on torsemide before adding metolazone. Continue with KCL 10 daily to keep K normal. Continue to monitor K+. Renal panel in a week of DC and Nephro appointment within 2-3 weeks of DC. Stable for DC from their POV. Cardio recs: OK with po torsemide. Considering possible pulm consult for mod. Rt Pleural effusion. Pt on RA, and has improved after continued diuresis. #. Persistent mod. Right Pleural Effusion 03/09 CXR: 1. Persistent moderate right pleural effusion with associated right basilar opacity. 2. Cardiomegaly with pulmonary vascular congestion. Continued Pl Eff despite aggressive diuresis. Pulm consulted by Cardio. Appreciate Pulm input. #. Acute on Chronic Renal Failure Patient's creatine slightly up today but still better than his outpatient baseline of 3.2 per nephrology Started on home dose torsemide per nephro - see above continue to montior electrolytes daily Avoid NSAIDs and contrast studies. #. Bronchitis Pt complaining of dry cough since couple of days. Pt reports improvement of dry cough c/w doxy for total of 5 days. Stop date 03/12/21 c/w le[place]ies [place] #. Deconditioning due to above , PT/OT nick appreciated recommends inpatient rehab #. Aflutter Rate controlled, on beta-teetee Eliquis for stroke prophylaxis dose reduced to 2.5 mg BID for poor renal clearance #. 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 Hyperglycemia Last A1C of 6.2, on sliding scale inpatient, consulted pharmacy for management. Disposition: ~Did peer to peer with his insurance company for inpatient rehab 03/08 -- Denied ~Possible DC when gets placement and no new issues arises. At this point will wait on Pulm recommendation before commenting on DC date. ~Prior week hospitalist had a lengthy discussion with pt - explained is detail the prognosis and progressive worsening of heart function with amylodosis and possible renal failure. Pt understands the severity of his illness, doesn't want any resuscitative measures/heroic measures and no life support/dialysis/feeding tube when he declines clinically. ~Hoping to go to rehab for short time , but in future as disease progresses and diuretics and medication does not help, Pt wants treatment to be directed to keep him comfortable only code status changed to DNR/DNI Admission and Anticipated Discharge Date Admission Date: March 01, 2021 Subjective Patient was lying down in bed, NAD, on RA. Patient denies Headache, Dizziness, Fever, Chills, Sore throat, Cough (improved), Chest pain, palpitations, SOB, Belly pain (improved), pain/burning while passing urine. Last Bowel movement [yesterday]. No issues overnight. Pt feels better than yesterday. Per Pt, he is eating at his baseline. Physical Exam Physical Exam: GENERAL: Alert and oriented x3. NAD, on RA. HEENT: No pallor, no icterus. Pupils equal, round and reactive to light. Oral mucosa moist. NECK: No JVD, no neck masses. HEART: S1 and S2 heard. Regular rate and rhythm. Holosystolic murmur over pulmonic area noted, no gallop. RESPIRATORY SYSTEM: Normal AP diameter. No accessory muscle use. No wheezing, no crackles. Decreased breath sounds at bases R>L ABDOMEN: Soft, bowel sounds present, nontender, no distention noted. CENTRAL NERVOUS SYSTEM: Alert and oriented x3. No facial droop. Speech is clear. Obeys simple commands. Moves extremities. EXTREMITIES: 1+ edema, no erythema seen. Results & Data Results & Data ([facility]) Vital Signs (Past 12 Hours) Vital Signs Temp Pulse Resp BP BP Pulse Ox 03/09/21 07:26 36.8 C 78 19 104/72 91 03/09/21 02:50 36.8 C 91 H 18 101/66 90 (1) Abdominal pain Abdominal location: generalized Qualified Code(s): R10.84 - Generalized abdominal pain
--- NOTE | 2021-03-09 15:10 | XRay Report ---
XR chest 1V portable HISTORY: 80 years-old Male S/P Thoracentesis follow up study in a patient with right-sided pleural e ffusion. Status post thoracentesis COMPARISON: Chest radiograph of same day at 12:55 PM TECHNIQUE: AP view of the chest FINDINGS: Cardiomegaly. Left subclavian pacer/AICD. Small right pleural effusion has decreased in size status p ost thoracentesis. No postprocedural pneumothorax. Persistent right lung base opacity. Pulmonary vasc ular congestion. Degenerative changes of the shoulders and spine. IMPRESSION: 1. Small right pleural effusion has decreased in size status post thoracentesis. 2. No postprocedural pneumothorax. ACT 112: Negative or not required by law. The above report was generated using voice recognition software. It may contain grammatical, syntax o r spelling errors. Electronically signed by: Quentin Phelps M.D. 03/09/2021 3:09 PM
--- NOTE | 2021-03-09 15:13 | Procedure Note ---
Procedure Note Date of Service March 09, 2021 Note Procedure Date: noted above Procedure: Thoracentesis Pre-procedure Diagnosis: Right-sided pleural effusion, history cardiac amyloidosis Post-procedure Diagnosis: same as above Prior to Procedure: Informed Consent: The risks, benefits, indications, potential complications, and alternatives were explained to the patient and informed consent obtained. We discussed minimally increased risk of bleeding while on systemic anticoagulation. Attending Staff: Landon Rivera DO Resident/Physician Computer Systems Security Administrator: Not applicable Indications: The patient is a 80-year-old male patient with right-sided pleural effusion requiring thoracentesis. The identity of the patient was confirmed and a bedside time out was performed. Description of Procedure: Patient positioned, the right posterior axillary line was prepped with chlorhexidine and draped in usual sterile fashion. Ultrasound guidance was used and appropriate fluid pocket was identified. 4 mL of 1% Lidocaine without epinephrine was used to anesthetize the area. A needle was introduced into the pleural space over the superior margin of the rib with care and fluid removed and sent for analysis. Total Fluid Removed: 1000 ml Color of Fluid: Staw Color Sent for: Gram Stain, culture, cell count, glucose, protein, LDH, pleural pH Complications: Postprocedure chest x-ray reviewed Estimated blood loss: None Coding CPT Codes Pulmonary/Thoracic - Pulmonary and Thoracic: 84253 Thoracentesis w/o imaging ([id number]) [facility] [place] Codes (Charges) Pulmonary/Thoracic Procedure 1: Pulmonary and Thoracic: 60619 Thoracentesis w/o imaging
--- NOTE | 2021-03-09 15:14 | Procedure Note ---
Procedure Note Date of Service March 09, 2021 Note Procedure Date: Noted above Critical Care Medicine Point of Care Bedside Ultrasound Procedure: Limited Bedside Lung Ultrasound Indication: Right-sided pleural effusion Attending: Zully Rivera DO Resident/Physician Extruder Operator Multiple: Not applicable Organs Examined: Lung BLUE point (upper), BLUE point (lower), Phrenic Point (axillary), PLAPS point (posterior) right hemithorax visualized, left hemithorax was not visualized A lines visualized: Absent, Hemithorax: Right B lines visualized: Absent, Hemithorax: Right Lung Sliding: Present, Hemithorax: Right Tissue-like Sign: Present, Hemithorax: Right Shred Sign: Absent, Hemithorax: Right Quad Sign: Present, Hemithorax: Right Sinusoid Sign: Present, Hemithorax: Right Type of effusions: Simple, Hemithorax: Right Interpleural distance: Greater than 1 cm Impression: Greater than 750 mL of simple appearing fluid in the right hemithorax with compressive atelectasis Images obtained are saved for permanent record Coding CPT Codes Pulmonary/Thoracic - Pulmonary and Thoracic: 69442 US, Chest, real time with imaging documentation ([id number]) [facility] [place] Codes (Charges) Pulmonary/Thoracic Procedure 1: Pulmonary and Thoracic: 71382 US, Chest, real time with imaging documentation
[2021-03-09 15:45] LABS: Bilirubin,Total 1.1 mg/dl (0.2-1); Total Protein 6.8 gm/dl (6.4-8.2)
[2021-03-09 15:52] LABS: Total Protein Pleural Fluid 2.1 g/dl
--- NOTE | 2021-03-09 16:08 | Palliative Care Consultation ---
Date of Consultation March 09, 2021 Assessment & Plan (1) Weakness: Mr. Givens tells me that he lives alone and has been managing with the help of a caregiver who comes in twice a week. He reports being independent for basic ADLs. He does have some dyspnea with activities but generally feels that he is doing ok. We discussed whether he felt that he could manage at home after discharge with is current status. He is ambulating to the bathroom and tells me that he was ambulating in the hallway earlier today and PT note indicates that he was able to ambulate 80 feet x 2 with a walker and without significant dyspnea. (2) Palliative care encounter: I talked with Mr. Givens about his goals for his care. He hopes to remain independent and be able to live at home. He is agreeable to being followed by home care on discharge. We talked about code status and he tells me initially that he would want us to try resuscitation to see if it would work. We discussed the likelihood that given his illness, resuscitation was very unlikely to be successful to the point of returning him to his current level of function. He indicates that he would not want resuscitation in that case. We discussed who would make decisions for his care if he were unable to do so and he indicated that he would want his son to do that for him, though he does not live in the [facility]. He does have a sister, Marta Abdi, listed as his primary contact. We will follow to clarify goals of care. (3) Familial transthyretin amyloid cardiomyopathy: (4) Paroxysmal atrial fibrillation: (5) Diabetes mellitus, type II: (6) Chronic combined systolic and diastolic CHF (congestive heart failure): History of Present Illness Reason for Consultation: goals of care Requesting Physician: Dr. Greenwood Attending Physician: Maci Greenwood MD History of Present Illness 80 yo gentleman with mixed systolic and diastolic heart failure with amyloid. He has an EF of less than 20% and has an ICD which he reports has never fired. He also has atrial fibrillation, diabetes and narcolepsy. He was admitted with abdominal pain without nausea, vomiting or diarrhea. He was given relistor today for relief of opioid induced constipation as he is on chronic opioids for failed back surgery. He tells me that he moves his bowels daily. He describes the pain as crampy and intermittent. He did complain of bloating earlier but feels that this has resolved. He does have documented bowel movements on the last two days. Allergies Allergy/AdvReac Type Severity Reaction Status Date / Time No Known Allergies Allergy Mild Verified 11/14/20 01:03 Home Medications Medication Instructions Recorded Confirmed Type ferrous sulfate 325 mg (65 mg 325 mg PO QAM 09/17/18 03/01/21 History iron) tablet (iron) glucosamine-chondroitin 500 mg-400 1 tab PO QAM 09/17/18 03/01/21 History mg tablet (Cidaflex) metoprolol succinate 25 mg 25 mg PO BID 05/05/19 03/01/21 History tablet,extended release 24 hr (Toprol XL) methocarbamol 500 mg tablet 500 mg PO BID #90 tab 05/17/19 03/01/21 History oxycodone 5 mg tablet (Roxicodone) 5 mg PO Q6H PRN 09/17/19 03/01/21 History amiodarone 200 mg tablet 200 mg PO QAM 02/09/20 03/01/21 History apixaban 2.5 mg tablet (Eliquis) 2.5 mg PO Q12H #60 tab 02/09/20 03/01/21 Rx alfuzosin 10 mg tablet,extended 10 mg PO QAM 10/18/20 03/01/21 History release 24 hr (Uroxatral) calcium carbonate 500 mg (1,250 1 tab PO DAILY 11/14/20 03/01/21 History mg)-vitamin D3 200 unit tablet (Calcium 500 + D) gabapentin 400 mg capsule 400 mg PO BID 11/14/20 03/01/21 History green tea extract 375 mg capsule 0 mg PO DAILY 11/14/20 03/01/21 History metolazone 2.5 mg tablet 2.5 mg PO 2XWK 11/14/20 03/01/21 History omeprazole 20 mg capsule,delayed 20 mg PO BID 11/14/20 03/01/21 History release patisiran (lipid complex) 2 mg/mL 0 mg IV .[id number] 11/14/20 03/01/21 History intravenous solution potassium chloride 10 mEq 20 meq PO UD 11/14/20 03/01/21 History tablet,extended release(part/cryst) tafamidis 61 mg capsule 61 mg PO DAILY 11/14/20 03/01/21 History torsemide 20 mg tablet 40 mg PO QAM 11/14/20 03/01/21 History pen needle,diabetic, disp unit 32 #100 ea 11/17/20 03/01/21 Rx gauge x ", remover and disposal unit insulin glargine 100 unit/mL (3 20 unit SC DAILY 03/01/21 03/01/21 History mL) subcutaneous pen (Lantus Solostar U-100 Insulin) Patient History Medical History Atrial fibrillation "A.Flutter" onset March 2019 BPH (benign prostatic hyperplasia) Cardiac amyloidosis Chronic back pain Chronic combined systolic and diastolic CHF (congestive heart failure) CKD (chronic kidney disease), stage III Seen in ED on 02/03 for acute dehydration/JOO. Baseline Cr noted to be around 2.0, was elevate at 2.7. Congestive heart failure Degenerative disc disease Diabetes mellitus, type II monitoring higher glucose lab testing, possibly related to medication changes in 2019. to have rechecked. following with PCP. Diverticular disease GERD (gastroesophageal reflux disease) History of cardioversion 05/08/19 DONE AT [facility] History of recent fall 07/2020, treated at [facility] Emergency Room. unsure why he fell, may have "passed out?". broken wrist-->casted, no surgical intervention. Hx of atrial flutter 2015 [facility] per medical record Hyperlipidemia Hypertension ICD (implantable cardioverter-defibrillator) in place IMPLANTED 05/30 [employer] (DR. BRYANT) On anticoagulant therapy Osteoarthritis Scoliosis Spinal stenosis Surgical History History of appendectomy History of arthroscopy RT SHOULDER History of back surgery LUMBAR SPINE History of cardiac cath SUMMER 2017 - [facility] - REASON? - NO STENTS/ANGIOPLASTY - DR. BRYANT History of cardioversion 2018 & 01/2020 ([facility]) History of carpal tunnel release BL History of cataract surgery RT/LEFT History of colonoscopy History of esophagogastroduodenoscopy (EGD) History of tooth extraction S/P cardiac pacemaker procedure ICD placed 2018 (Dr Bryant) S/P epidural steroid injection Lumbar Family History Mother FHx: breast cancer Grandmother (Paternal) FHx: stroke Grandmother (Paternal) FHx: myocardial infarction Father Kidney disease ESRD due to DM. 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 Other Information That Helps Us Care for You: No Feels Safe at Home: Yes Safety Concerns: Feels Safe At This Time Assistive Devices: None Review of Systems Review of Systems: Diamond Symptom Assessment Scale Pain 2/3 Dyspnea 1/3 Anxiety 0/3 Fatigue 1/3 Drowsiness 0/3 Palliative Performance Score 50% Physical Exam Constitutional: comfortable; no acute distress Respiratory: normal respiratory effort; no labored breathing Gastrointestinal (Abdomen): Inspection/Auscultation: abdomen not distended Neurologic: awake; no focal motor deficits and not confused Psychiatric: Orientation: oriented x 3 Results & Data ([facility]) Vital Signs (Past 12 Hours) Vital Signs Temp Pulse Resp BP Pulse Ox 03/09/21 07:26 98.2 F 78 19 104/72 91 PG Care Time/CCT Total # of Minutes Spent Total Time Spent: 60 Total Time Spent with Patient: Total time spent is greater than 50% in coordination of care (as documented) at patient's floor/unit and/or counseling patient: code status, goals of care, surrogate decision maker. Coding Level of Care Code 48853 Initial Inpt Care Lvl 2 Diagnoses Weakness R53.1 Palliative care encounter Z51.5 Familial transthyretin amyloid cardiomyopathy E85.4; I43 Paroxysmal atrial fibrillation I48.0 Diabetes mellitus, type II E11.9 Chronic combined systolic and diastolic CHF (congestive heart failure) I50.42
[2021-03-09 16:10] LABS: Appearance Pleural Fluid CLEAR; Basophils, Fluid 0 %; Color Pleural Fluid YELLOW; Eosinophils, Fluid 0 %; Lymphocytes, Fluid 1 %; Mono,Macrophage,Mesothelial 87 %; Neutrophils, Fluid 12 %; RBC Pleural Fluid (A) < 3000 /uL; Source Pleural Fluid RIGHT LUNG; WBC Pleural Fluid (A) 232 /uL
--- NOTE | 2021-03-09 20:06 | Pulmonary Consultation ---
Date of Consultation March 09, 2021 Assessment & Plan (1) Pleural effusion, right: (2) Compressive atelectasis: Chest x-ray 03/09/2021 personally reviewed: Portable film, fair inspiratory effor t, right costophrenic angles blunted, increased cardiac silhouette, positive AICD, no clear lung infiltrate appreciated. --Right-sided pleural effusion Likely from underlying systolic CHF S/p thoracentesis 03/09/2021,Monocytic, transudative as per lights criteria Pleural fluid: LDH 88, protein 2.1, glucose 177, pH 7.46 Serum: LDH 287, protein 6.8 --Compressive redness of the right lower lobe Likely for the right-sided pleural effusion Recommend incentive spirometry Plan: Bedside ultrasound postprocedure. Minimal right-sided pleural effusion, B-lines appreciated posterior lower lobe likely atelectasis. No left-sided pleural effusion No further recommendation from pulmonary perspective Follow-up cytology. Make sure that cytology has been sent from the right-sided pleural fluid Please note the above document was generated using voice recognition software. It may contain grammatical, syntax or spelling errors.Any formal questions or concerns about the content, text or information contained within the body of this dictation should be directly addressed to the provider for clarification. History of Present Illness Attending Physician: Maci Greenwood MD History of Present Illness 80-year-old male past medical history of systolic CHF, A. fib on apixaban, amyloid cardiomyopathy, bicuspid aortic valve, hypertension, diabetes type 2, CKD stage III presented to hospital with shortness of breath Patient was found to be in acute on chronic systolic heart failure Patient was also found to have right-sided pleural effusion. Pulmonary were consulted for the same At the time of examination patient already had thoracentesis performed Patient stated he felt much better after the fluid was removed. Shortness of breath had already improved prior since being diuresed while in the hospital After the thoracentesis he said his breathing is much better. He still coughing when he takes deep breath in. He denies any chest pain. Has been urinating well. No dizziness. Fair appetite Social history: [id number] smoking history, quit at the age of 50, denies any illicit drug use Allergies Allergy/AdvReac Type Severity Reaction Status Date / Time No Known Allergies Allergy Mild Verified 11/14/20 01:03 Home Medications Medication Instructions Recorded Confirmed Type ferrous sulfate 325 mg (65 mg 325 mg PO QAM 09/17/18 03/01/21 History iron) tablet (iron) glucosamine-chondroitin 500 mg-400 1 tab PO QAM 09/17/18 03/01/21 History mg tablet (Cidaflex) metoprolol succinate 25 mg 25 mg PO BID 05/05/19 03/01/21 History tablet,extended release 24 hr (Toprol XL) methocarbamol 500 mg tablet 500 mg PO BID #90 tab 05/17/19 03/01/21 History oxycodone 5 mg tablet (Roxicodone) 5 mg PO Q6H PRN 09/17/19 03/01/21 History amiodarone 200 mg tablet 200 mg PO QAM 02/09/20 03/01/21 History apixaban 2.5 mg tablet (Eliquis) 2.5 mg PO Q12H #60 tab 02/09/20 03/01/21 Rx alfuzosin 10 mg tablet,extended 10 mg PO QAM 10/18/20 03/01/21 History release 24 hr (Uroxatral) calcium carbonate 500 mg (1,250 1 tab PO DAILY 11/14/20 03/01/21 History mg)-vitamin D3 200 unit tablet (Calcium 500 + D) gabapentin 400 mg capsule 400 mg PO BID 11/14/20 03/01/21 History green tea extract 375 mg capsule 0 mg PO DAILY 11/14/20 03/01/21 History metolazone 2.5 mg tablet 2.5 mg PO 2XWK 11/14/20 03/01/21 History omeprazole 20 mg capsule,delayed 20 mg PO BID 11/14/20 03/01/21 History release patisiran (lipid complex) 2 mg/mL 0 mg IV .[id number] 11/14/20 03/01/21 History intravenous solution potassium chloride 10 mEq 20 meq PO UD 11/14/20 03/01/21 History tablet,extended release(part/cryst) tafamidis 61 mg capsule 61 mg PO DAILY 11/14/20 03/01/21 History torsemide 20 mg tablet 40 mg PO QAM 11/14/20 03/01/21 History pen needle,diabetic, disp unit 32 #100 ea 11/17/20 03/01/21 Rx gauge x 5/32", remover and disposal unit insulin glargine 100 unit/mL (3 20 unit SC DAILY 03/01/21 03/01/21 History mL) subcutaneous pen (Lantus Solostar U-100 Insulin) Patient History Medical History Atrial fibrillation "A.Flutter" onset March 2019 BPH (benign prostatic hyperplasia) Cardiac amyloidosis Chronic back pain Chronic combined systolic and diastolic CHF (congestive heart failure) CKD (chronic kidney disease), stage III Seen in ED on 02/03 for acute dehydration/JOO. Baseline Cr noted to be around 2.0, was elevate at 2.7. Congestive heart failure Degenerative disc disease Diabetes mellitus, type II monitoring higher glucose lab testing, possibly related to medication changes in 2019. to have rechecked. following with PCP. Diverticular disease GERD (gastroesophageal reflux disease) History of cardioversion 05/08/19 DONE AT [facility] History of recent fall 07/2020, treated at [facility] Emergency Room. unsure why he fell, may have "passed out?". broken wrist-->casted, no surgical intervention. Hx of atrial flutter 2015 [facility] per medical record Hyperlipidemia Hypertension ICD (implantable cardioverter-defibrillator) in place IMPLANTED 05/30 [employer] (DR. BRYANT) On anticoagulant therapy Osteoarthritis Scoliosis Spinal stenosis Surgical History History of appendectomy History of arthroscopy RT SHOULDER History of back surgery LUMBAR SPINE History of cardiac cath SUMMER 2017 - [facility] - REASON? - NO STENTS/ANGIOPLASTY - DR. BRYANT History of cardioversion 2018 & 01/2020 ([facility]) History of carpal tunnel release BL History of cataract surgery RT/LEFT History of colonoscopy History of esophagogastroduodenoscopy (EGD) History of tooth extraction S/P cardiac pacemaker procedure ICD placed 2018 (Dr Bryant) S/P epidural steroid injection Lumbar Family History Mother FHx: breast cancer Grandmother (Paternal) FHx: stroke Grandmother (Paternal) FHx: myocardial infarction Father Kidney disease ESRD due to DM. 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 Other Information That Helps Us Care for You: No Feels Safe at Home: Yes Safety Concerns: Feels Safe At This Time Assistive Devices: None Review of Systems Review of Systems: All systems reviewed & are unremarkable except as noted in HPI & below Physical Exam Physical Exam: Constitutional: No acute distress HEENT: EOMI, PERRLA Respiratory system: Decreased air entry bilaterally, no wheeze, rhonchi, positive crackles bilateral lower lobes more on the right side CVS: S1-S2 positive, positive 3 out of 6 systolic murmur appreciated best at the apex Abdomen: Soft, nontender, nondistended, positive bowel sounds x4 Extremities: +2 pulses bilaterally radialis/ dorsalis pedis, no cyanosis, +3 pitting edema bilateral lower extremity Neuro: Awake alert oriented x3 Psych: Normal mood and affect G/U: No Vo Skin: no rashes, warm and dry Lymphatic: no cervical or axillary lymphadenopathy Results & Data Results & Data ([facility]) Vital Signs (Past 12 Hours) Vital Signs Temp Pulse Resp BP Pulse Ox 03/09/21 15:44 37.1 C 87 18 112/79 91 03/09/21 08:32 03/09/21 08:32 PG Care Time/CCT Total # of Minutes Spent Total Time Spent with Patient: Total time spent is greater than 50% in coordi nation of care (as documented) at patient's floor/unit and/or counseling patient: Coding Level of Care Code 31980 Initial Inpt Care Lvl 3 Diagnoses Pleural effusion, right J90 Compressive atelectasis J98.11
[2021-03-09] MEDS: DOCUSATE SODIUM 100 MG CAP PO SCH (21:43)
[2021-03-10] MEDS: guaiFENesin/DEXTROM SYRUP 200MG/20MG 10ML UDC PO PRN (05:29)
[2021-03-10] MEDS: CALCIUM 600MG + VIT D 400 IU TAB PO SCH (05:29)
[2021-03-10] MEDS: FERROUS SULFATE 325 MG TAB PO SCH (05:29)
[2021-03-10] MEDS: POTASSIUM CHLORIDE 10 MEQ TABCR PO SCH (08:14)
[2021-03-10] MEDS: BENZONATATE 100 MG CAPSULE PO SCH ×3 (08:14→20:50)
[2021-03-10] MEDS: AMIODARONE 200 MG TAB PO SCH (08:15)
[2021-03-10] MEDS: ALFUZOSIN HCL 10 MG TAB PO SCH (08:16)
[2021-03-10] MEDS: PANTOprazole 40 MG TAB PO SCH ×2 (08:16→20:48)
[2021-03-10] MEDS: DOCUSATE SODIUM 100 MG CAP PO SCH ×2 (08:17→20:50)
[2021-03-10] MEDS: METOPROLOL SUCC 25MG EXT REL TAB PO SCH ×2 (08:17→20:49)
[2021-03-10] MEDS: GABAPENTIN 400 MG CAP PO SCH ×2 (08:18→20:49)
[2021-03-10] MEDS: DOXYCYCLINE HYCLATE 100 MG CAP PO SCH ×2 (08:18→20:49)
[2021-03-10] MEDS: APIXABAN 2.5 MG TAB PO SCH ×2 (08:18→20:50)
[2021-03-10] MEDS: METHOCARBAMOL 500 MG TABLET PO SCH ×2 (08:18→20:49)
[2021-03-10] MEDS: INSULIN ASPART 100 UNITS/ML 3 ML PEN SC SCH ×4 (08:37→20:51)
[2021-03-10] MEDS ORDERED: INSULIN GLARGINE SOLOSTAR 100 UNITS/ML 3 ML PEN SC SCH (09:00)
[2021-03-10] MEDS ORDERED: TORSEMIDE 10 MG TAB PO SCH (09:00)
--- NOTE | 2021-03-10 09:01 | Hospitalist Progress Note ---
Date of Service March 10, 2021 Assessment & Plan (1) Abdominal pain: (2) Acute on chronic systolic heart failure: (3) Cardiac amyloidosis: Plan: #. Abdominal Pain/Constipation Resolved. Pt having regular BM. C/w Stool softener. Continue to monitor clinically. DC with stool softener at time of discharge. Advanced the diet today. #. 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 Nephro recs: Stop IV lasix, Tosemide raised from 20 to 40 mg BID 03/10, maximize on torsemide before adding metolazone. Continue with KCL 10 BID to keep K normal. Continue to monitor K+. Renal panel in a week of DC and Nephro appointment within 2-3 weeks of DC. Stable for DC from their POV. Cardio recs: OK with po torsemide. Pt on RA, and has improved after continued diuresis and Rt Thoracentesis 03/09. #. Persistent mod. Right Pleural Effusion 03/09 CXR: 1. Persistent moderate right pleural effusion with associated right basilar opacity. 2. Cardiomegaly with pulmonary vascular congestion. Continued Pl Eff despite aggressive diuresis s/p Rt thoracentesis 03/10 - 1 L transudative fluid taken out. F/u 03/09 Pl Fluid Cx. Encourage incentive spirometry. Appreciate pulm recommendation. #. Acute on Chronic Renal Failure Patient's creatine stable around 2 and is better than his outpatient baseline of 3.2 per nephrology Increased on torsemide dose -see above continue to montior electrolytes daily Avoid NSAIDs and contrast studies. #. Bronchitis Pt complaining of dry cough since couple of days. Pt reports improvement of dry cough c/w doxy for total of 5 days. Stop date 03/12/21 c/w tessalon allen #. Deconditioning due to above , PT/OT eval appreciated recommends inpatient rehab #. Aflutter Rate controlled, on beta-teetee Eliquis for stroke prophylaxis dose reduced to 2.5 mg BID for poor renal clearance #. 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 Hyperglycemia Last A1C of 6.2, on sliding scale inpatient, consulted pharmacy for management. Disposition: ~Did peer to peer with his insurance company for inpatient rehab 03/08 -- Denied ~Possible DC when gets placement and no new issues arises. At this point, per CM's note, seems like they would be unable to accept him until next week. ~Prior week hospitalist had a lengthy discussion with pt - explained is detail the prognosis and progressive worsening of heart function with amylodosis and possible renal failure. Pt understands the severity of his illness, doesn't want any resuscitative measures/heroic measures and no life support/dialysis/feeding tube when he declines clinically. ~Hoping to go to rehab for short time , but in future as disease progresses and diuretics and medication does not help, Pt wants treatment to be directed to keep him comfortable only code status changed to DNR/DNI Admission and Anticipated Discharge Date Admission Date: March 01, 2021 Subjective Patient was lying down in bed, NAD, on RA. Patient denies Headache, Dizziness, Fever, Chills, Sore throat, Cough (better), Chest pain, palpitations, SOB, Belly pain (better muscle sore), pain/burning while passing urine. Last Bowel movement [yesterday]. No issues overnight. Pt feels even better than yesterday after the Rt thoracentesis. Per Pt, he is eating at his baseline. Physical Exam Physical Exam: GENERAL: Alert and oriented x3. NAD, on RA. HEENT: No pallor, no icterus. Pupils equal, round and reactive to light. Oral mucosa moist. NECK: No JVD, no neck masses. HEART: S1 and S2 heard. Regular rate and rhythm. Holosystolic murmur over pulmonic area noted, no gallop. RESPIRATORY SYSTEM: Normal AP diameter. No accessory muscle use. No wheezing, no crackles. Decreased breath sounds at bases R=L ABDOMEN: Soft, bowel sounds present, nontender, no distention noted. CENTRAL NERVOUS SYSTEM: Alert and oriented x3. No facial droop. Speech is clear. Obeys simple commands. Moves extremities. EXTREMITIES: 1+ edema, no erythema seen. Results & Data Results & Data ([facility]) Vital Signs (Past 12 Hours) Vital Signs Temp Pulse Pulse Pulse Resp BP BP 03/10/21 07:22 37.1 C 88 18 100/65 03/10/21 06:20 88 03/10/21 03:00 36.8 C 71 20 93/60 L 03/09/21 23:24 37.4 C 88 18 104/75 03/09/21 21:41 83 97/65 L Pulse Ox 03/10/21 07:22 95 03/10/21 06:20 03/10/21 03:00 92 03/09/21 23:24 94 03/09/21 21:41 (1) Abdominal pain Abdominal location: generalized Qualified Code(s): R10.84 - Generalized abdominal pain
--- NOTE | 2021-03-10 09:44 | Pharmacy Report ---
Pharmacy Glycemic Short Note 2 - Date of Service March 10, 2021 - Glycemic Short BSG Results (Last 24 hours): 03/09/21 03/09/21 03/09/21 11:02 16:26 20:30 POC Glucose 181 H 110 H 153 H 03/10/21 07:27 POC Glucose 119 H OUTPATIENT ANTIDIABETIC REGIMEN: * Lantus 20 units SC HS * HbA1c: 6.2% (03/02/21) ASSESSMENT: 03/10: * BSGs reasonably well controlled yesterday, 134, 181, 110, and 153 mg/dL * Received 25 units of insulin (10 units of basal, 15 units of prandial/correctional bolus) * Fasting BSG of 119 mg/dL -> improved from 138 mg/dL * Plan to continue current insulin orders 03/09: * ATP is a 80 year old male admitted on 03/01/21 for evaluation of lower abdominal pain, increasing shortness of breath, and increased bilateral leg swelling * Pharmacy consulted for glycemic management on 03/08/21 due to relatively poor inpatient glycemic management thus far (BSGs ranging 149-241 mg/dL over past couple of days) * Novolog tightened last evening (lowered goal range and tightened carb ratio) - will continue * Patient takes basal at HS at home - will give at lunchtime today and plan to step back to HS over next couple of days * 100% basal at home - will look to make 50/50 split while inpatient PLAN FOR INPATIENT GLYCEMIC CONTROL: * Basal insulin - continue * Lantus 10 units SC with lunch * Bolus insulin - continue * NovoLog per scale ACHS or Q6hrs while NPO * Goal Range: Low 110 mg/dL - High 140 mg/dL * Correction Factor: 25 mg/dL/unit * Nutritional / Prandial insulin per carb ratio of 1 unit per 8 grams CHO consumed PLAN FOR DISCHARGE: * HbA1c of 6.2% is excellent * Resume outpatient regimen upon discharge, provided patient not experiencing hypoglycemia as an outpatient
[2021-03-10 09:50] LABS: Est GFR (African American) 32.5 ml/min; Est GFR (Non-African American) 28.1 ml/min; Potassium 3.8 mmol/L (3.5-5.1)
[2021-03-10 09:51] LABS: BUN Creatinine Ratio 21.7 (10-20); Calcium 8.4 mg/dl (8.5-10.1); Creatinine Clr Calc Pharmacy 28.3 ml/min
--- NOTE | 2021-03-10 10:03 | Nephrology Progress Note ---
Date of Service March 10, 2021 Assessment & Plan Admission and Anticipated Discharge Date Admission Date: March 01, 2021 Subjective had Pleural tap yesterday and fluid is transudative. Some edema.feels weak. GENERAL: Elderly black male who is awake, alert and oriented. He is not in any distress, although he does have limitation. CHEST: Bilateral decreased breath sounds and occasional crackles. CARDIOVASCULAR: S1 and S2, regular. Soft systolic murmur heard. ABDOMEN: Soft, nontender. EXTREMITIES: Trace edema. LABORATORY TESTS: Creat stable. Urine test shows no blood, no protein and was a very bland urine sediment. Chest x-ray shows worsening right pleural effusion, CHF pattern. ASSESSMENT AND PLAN: An 80-year-old male with a known history of chronic kidney disease, which seems to be worsening with the most recent outpatient creatinine of 3.2 as well as history of amyloidosis-related cardiomyopathy, on treatment. Now admitted with nonspecific abdominal back pain and some fluid retention. I have been consulted for [id number] renal failure. [id number] renal failure: CHF Stable CKD 4 at this time for outpt Diuretics --torsemide but will raise to 40 bid. Would go up on torsemide lot more before adding metolazone--prefer not be used. Conitnue k.cl 10 bid for now to keep K normal. labs next week--renal panel. Outpt f/u with nephrology within next few weeks. Stable for discharge from renal standpoint. Results & Data ([facility]) Vital Signs (Past 12 Hours) Vital Signs Temp Pulse Pulse Resp BP BP Pulse Ox 03/10/21 07:22 37.1 C 88 18 100/65 95 03/10/21 06:20 88 03/10/21 03:00 36.8 C 71 20 93/60 L 92 03/09/21 23:24 37.4 C 88 18 104/75 94
--- NOTE | 2021-03-10 11:01 | Palliative Care Progress Note ---
Date of Service March 10, 2021 Assessment & Plan (1) Weakness: Plan: Improving. Ambulating in hallway. (2) Palliative care encounter: Plan: I spoke with Mr. Givens to follow up on our conversation from yesterday. He has designated his son, Cody Givens, as his surrogate decision maker. His sister, Marta Abdi, is listed as his primary contact for ease of communication as Cody lives [place]. Cody's number is [phone]. I did speak with Cody on the phone with his father. He is agreeable and comfortable with being surrogate decision maker. (3) Acute on chronic systolic heart failure: (4) Familial transthyretin amyloid cardiomyopathy: Admission and Anticipated Discharge Date Admission Date: March 01, 2021 Subjective Feeling better this morning. Looking forward to walking with PT today. Denies dyspnea. Review of Systems Review of Systems: [place] Symptom Assessment Scale Pain 0/3 Dyspnea 0/3 Anxiety 0/3 Fatigue 1/3 Drowsiness 0/3 Palliative Performance Score 60% Physical Exam Constitutional: comfortable; no acute distress Respiratory: normal respiratory effort; no labored breathing Cardiovascular: Extremities: no edema Gastrointestinal (Abdomen): Inspection/Auscultation: abdomen not distended Musculoskeletal: Extremities: + muscle atrophy Neurologic: awake; not confused Genitourinary: continent Results & Data ([facility]) Vital Signs (Past 12 Hours) Vital Signs Temp Pulse Pulse Resp BP BP Pulse Ox 03/10/21 07:22 98.8 F 88 18 100/65 95 03/10/21 06:20 88 03/10/21 03:00 98.2 F 71 20 93/60 L 92 03/09/21 23:24 99.3 F 88 18 104/75 94 PG Care Time/CCT Total # of Minutes Spent Total Time Spent with Patient: Total time spent is greater than 50% in coordination of care (as documented) at patient's floor/unit and/or counseling patient: Coding Level of Care Code 76327 Subseq Hosp Care Lvl 2 Diagnoses Weakness R53.1 Palliative care encounter Z51.5 Acute on chronic systolic heart failure I50.23 Familial transthyretin amyloid cardiomyopathy E85.4; I43
[2021-03-10] MEDS ORDERED: COUGH DROP (SUGAR FREE) LOZ 24 LOZ/1 BOX BUCCAL PRN (14:55)
--- NOTE | 2021-03-10 15:01 | Cardiology Progress Note ---
Date of Service March 10, 2021 Assessment & Plan (1) Acute on chronic systolic heart failure: Plan: S/p right sided thoracentesis 03/09/2021 with clinical improvement. Continue torsemide 20 mg twice daily. Nephrology input appreciated. Follow GFR, daily weight, electrolytes, and fluid balance. 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 Outpatient treatment with patisiran and tafamidis. Palliative care consultation appropriate. Continue supportive care with walker and diuretics. (3) Paroxysmal atrial fibrillation: Plan: Adequate rate control continue metoprolol, amiodarone, and eliquis. (4) Acute kidney injury: Plan: Stable creatinine. Transitioned to oral diuretic therapy 03/09. Admission and Anticipated Discharge Date Admission Date: March 01, 2021 Subjective Patient seen and examined. Respiratory status improved with right sided thoracentesis. Less cough today. No orthopnea. Telemetry demonstrates AF with fair rate control. Review of Systems Review of Systems: All systems reviewed & are unremarkable except as noted in Subjective Physical Exam Constitutional: well developed, well nourished and + ill appearing Respiratory: no respiratory distress and no labored breathing Auscultation: + diminished lung sounds (Mildly diminished at the right base.); no rales (bases B/L), no rhonchi and no wheezes Cardiovascular: Rate/Rhythm: + irregularly irregular Heart Sounds: normal S1 and normal S2; no murmur Extremities: + edema (Trace to mild pedal edema) Gastrointestinal (Abdomen): Inspection/Auscultation: normal bowel sounds; abdomen not distended Percussion/Palpation: abdomen soft; abdomen nontender, no guarding and abdomen not rigid Neurologic: CN's II-XI intact bilaterally and moves all extremities; no focal motor deficits Motor/Sensory: no tremor Psychiatric: A+Ox3, euthymic affect Results & Data ([facility]) Vital Signs (Past 12 Hours) Vital Signs Temp Pulse Pulse Resp BP BP Pulse Ox 03/10/21 11:00 36.8 C 97 H 18 101/68 93 03/10/21 07:22 37.1 C 88 18 100/65 95 03/10/21 06:20 88 03/10/21 03:00 36.8 C 71 20 93/60 L 92
[2021-03-10] MEDS: TORSEMIDE 20 MG TAB PO SCH (17:29)
[2021-03-10] MEDS: POTASSIUM CHLORIDE CRTAB 20 MEQ TABCR PO SCH (20:48)
[2021-03-11] MEDS: CALCIUM 600MG + VIT D 400 IU TAB PO SCH (06:13)
[2021-03-11] MEDS: FERROUS SULFATE 325 MG TAB PO SCH (06:13)
[2021-03-11 07:54] LABS: BUN Creatinine Ratio 22.8 (10-20); Calcium 8.6 mg/dl (8.5-10.1); Est GFR (African American) 34.8 ml/min; Est GFR (Non-African American) 30.1 ml/min; Potassium 3.3 mmol/L (3.5-5.1)
--- NOTE | 2021-03-11 09:18 | Pharmacy Report ---
Pharmacy Glycemic Short Note 2 - Date of Service March 11, 2021 - Glycemic Short BSG Results (Last 24 hours): 03/10/21 03/10/21 03/10/21 08:51 11:29 16:13 Glucose 141 H POC Glucose 178 H 133 H 03/10/21 03/11/21 03/11/21 20:42 07:12 07:27 Glucose 65 L POC Glucose 117 H 71 OUTPATIENT ANTIDIABETIC REGIMEN: * Lantus 20 units SC HS * HbA1c: 6.2% (03/02/21) ASSESSMENT: 03/11/21 * BSGs yesterday were [phone] mg/dL. * Patient received 28 units of insulin (10 units of Lantus and 18 units of bolus). * Fasting today was 71 mg/dL. * Decrease basal by 50% due to slight low but significant decrease in fasting BSGs (119 mg/dL to 71 mg/dL). * Continue Novolog. 03/10: * BSGs reasonably well controlled yesterday, 134, 181, 110, and 153 mg/dL * Received 25 units of insulin (10 units of basal, 15 units of prandial/correctional bolus) * Fasting BSG of 119 mg/dL -> improved from 138 mg/dL * Plan to continue current insulin orders 03/09: * ATP is a 80 year old male admitted on 03/01/21 for evaluation of lower abdominal pain, increasing shortness of breath, and increased bilateral leg swelling * Pharmacy consulted for glycemic management on 03/08/21 due to relatively poor inpatient glycemic management thus far (BSGs ranging 149-241 mg/dL over past couple of days) * Novolog tightened last evening (lowered goal range and tightened carb ratio) - will continue * Patient takes basal at HS at home - will give at lunchtime today and plan to step back to HS over next couple of days * 100% basal at home - will look to make 50/50 split while inpatient PLAN FOR INPATIENT GLYCEMIC CONTROL: * Basal insulin - decrease * Lantus 5 units SC with daily * Bolus insulin - continue * NovoLog per scale ACHS or Q6hrs while NPO * Goal Range: Low 110 mg/dL - High 140 mg/dL * Correction Factor: 25 mg/dL/unit * Nutritional / Prandial insulin per carb ratio of 1 unit per 8 grams CHO consumed PLAN FOR DISCHARGE: * HbA1c of 6.2% is excellent * Resume outpatient regimen upon discharge, provided patient not experiencing hypoglycemia as an outpatient
[2021-03-11] MEDS: DOCUSATE SODIUM 100 MG CAP PO SCH ×2 (09:37→21:01)
[2021-03-11] MEDS: METOPROLOL SUCC 25MG EXT REL TAB PO SCH ×2 (09:38→21:01)
[2021-03-11] MEDS: APIXABAN 2.5 MG TAB PO SCH ×2 (09:38→21:02)
[2021-03-11] MEDS: ALFUZOSIN HCL 10 MG TAB PO SCH (09:38)
[2021-03-11] MEDS: TORSEMIDE 20 MG TAB PO SCH ×2 (09:38→18:39)
[2021-03-11] MEDS: GABAPENTIN 400 MG CAP PO SCH ×2 (09:38→21:02)
[2021-03-11] MEDS: METHOCARBAMOL 500 MG TABLET PO SCH ×2 (09:42→21:01)
[2021-03-11] MEDS: AMIODARONE 200 MG TAB PO SCH (09:42)
[2021-03-11] MEDS: PANTOprazole 40 MG TAB PO SCH ×2 (09:42→21:01)
[2021-03-11] MEDS: DOXYCYCLINE HYCLATE 100 MG CAP PO SCH (09:42)
[2021-03-11] MEDS: POTASSIUM CHLORIDE CRTAB 20 MEQ TABCR PO SCH ×2 (09:43→21:02)
[2021-03-11] MEDS: BENZONATATE 100 MG CAPSULE PO SCH ×3 (09:43→21:04)
[2021-03-11] MEDS: INSULIN GLARGINE SOLOSTAR 100 UNITS/ML 3 ML PEN SC SCH (09:45)
[2021-03-11] MEDS: INSULIN ASPART 100 UNITS/ML 3 ML PEN SC SCH ×4 (09:46→21:04)
--- NOTE | 2021-03-11 12:21 | Nephrology Progress Note ---
Date of Service March 11, 2021 Assessment & Plan (1) Acute kidney injury: Plan: Patient with acute kidney injury due to cardiorenal syndrome. Stable CKD 4 at this time Continue torsemide - 40 bid. Would go up on torsemide lot more before adding metolazone--prefer not be used. Conitnue k.cl 10 bid for now to keep K normal. labs next week--renal panel. Outpt f/u with nephrology within next few weeks. Stable for discharge from renal stand (2) Acute on chronic systolic heart failure: Plan: as above. Admission and Anticipated Discharge Date Admission Date: March 01, 2021 Subjective No change in presentation, no new issues Review of Systems Review of Systems: All other systems were reviewed and negative except as noted in HPI Physical Exam Physical Exam: GENERAL: Elderly black male who is awake, alert and oriented. He is not in any distress, although he does have limitation. CHEST: Bilateral decreased breath sounds and occasional crackles. CARDIOVASCULAR: S1 and S2, regular. Soft systolic murmur heard. ABDOMEN: Soft, nontender. EXTREMITIES: Trace edema. Results & Data ([facility]) Vital Signs (Past 12 Hours) Vital Signs Temp Pulse Pulse Resp BP BP Pulse Ox 03/11/21 12:02 36.6 C 74 18 91/61 L 96 03/11/21 09:37 72 94/59 L 03/11/21 07:24 36.7 C 46 L 16 96/68 L 92 03/11/21 04:00 36.5 C 72 18 102/68 93 Laboratory Results 03/09/21 08:32 03/11/21 07:12
--- NOTE | 2021-03-11 12:49 | Hospitalist Progress Note ---
Date of Service March 11, 2021 Assessment & Plan (1) Acute on chronic systolic heart failure: (2) Cardiac amyloidosis: (3) Abdominal pain: Plan: #. 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 Nephro recs: Stop IV lasix, Tosemide raised from 20 to 40 mg BID 03/10, maximize on torsemide before adding metolazone. Continue with KCL 20 BID to keep K no rmal. Continue to monitor K+. Renal panel in a week of DC and Nephro appointment within 2-3 weeks of DC. Stable for DC from their POV. Cardio recs: OK with po torsemide. Pt on RA, and has improved after continued diuresis and Rt Thoracentesis 03/09. #. Persistent mod. Right Pleural Effusion - Resolved 03/09 CXR: 1. Persistent moderate right pleural effusion with associated right basilar opacity. 2. Cardiomegaly with pulmonary vascular congestion. Continued Pl Eff despite aggressive diuresis s/p Rt thoracentesis 03/10 - 1 L transudative fluid taken out. F/u 03/09 Pl Fluid Cx. Encourage incentive spirometry. Appreciate pulm recommendation. #. Acute on Chronic Renal Failure Patient's creatine stable around 2 and is better than his outpatient baseline of 3.2 per nephrology Increased on torsemide dose -see above continue to montior electrolytes daily Avoid NSAIDs and contrast studies. #. Bronchitis - Improved Pt complaining of dry cough since couple of days. Pt reports improvement of dry cough c/w doxy for total of 5 days. Stopped Doxy c/w tessalon perles #. Abdominal Pain/Constipation Resolved. Pt having regular BM. C/w Stool softener. Continue to monitor clinically. DC with stool softener at time of discharge. Tolerating the diet well. #. Deconditioning due to above , PT/OT eval appreciated recommends inpatient rehab #. Aflutter Rate controlled, on beta-teetee Eliquis for stroke prophylaxis dose reduced to 2.5 mg BID for poor renal clearance #. 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 Hyperglycemia Last A1C of 6.2, on sliding scale inpatient, consulted pharmacy for management. Disposition: ~Did peer to peer with his insurance company for inpatient rehab 03/08 -- Denied ~Possible DC when gets placement and no new issues arises. At this point, per CM's note, seems like they would be unable to accept him until next week. ~Prior week hospitalist had a lengthy discussion with pt - explained is detail the prognosis and progressive worsening of heart function with amylodosis and possible renal failure. Pt understands the severity of his illness, doesn't want any resuscitative measures/heroic measures and no life support/dialysis/feeding tube when he declines clinically. ~Hoping to go to rehab for short time , but in future as disease progresses and diuretics and medication does not help, Pt wants treatment to be directed to keep him comfortable only code status changed to DNR/DNI Admission and Anticipated Discharge Date Admission Date: March 01, 2021 Subjective Patient was lying down in bed, NAD, on RA. Patient denies Headache, Dizziness, Fever, Chills, Sore throat, Cough, Chest pain, palpitations, SOB, Belly pain, pain/burning while passing urine. Last Bowel movement [yesterday]. No issues overnight. Pt feels even better after the Rt thoracentesis. Per Pt, he is eating at his baseline. Physical Exam Physical Exam: GENERAL: Alert and oriented x3. NAD, on RA. HEENT: No pallor, no icterus. Pupils equal, round and reactive to light. Oral mucosa moist. NECK: No JVD, no neck masses. HEART: S1 and S2 heard. Regular rate and rhythm. Holosystolic murmur over pulmonic area noted, no gallop. RESPIRATORY SYSTEM: Normal AP diameter. No accessory muscle use. No wheezing, no crackles. Decreased breath sounds at bases R=L ABDOMEN: Soft, bowel sounds present, nontender, no distention noted. CENTRAL NERVOUS SYSTEM: Alert and oriented x3. No facial droop. Speech is clear. Obeys simple commands. Moves extremities. EXTREMITIES: 1+ edema, no erythema seen. Results & Data Results & Data ([facility]) Vital Signs (Past 12 Hours) Vital Signs Temp Pulse Pulse Resp BP BP Pulse Ox 03/11/21 12:02 36.6 C 74 18 91/61 L 96 03/11/21 09:37 72 94/59 L 03/11/21 07:24 36.7 C 46 L 16 96/68 L 92 03/11/21 04:00 36.5 C 72 18 102/68 93 (1) Abdominal pain Abdominal location: generalized Qualified Code(s): R10.84 - Generalized abdominal pain
[2021-03-12] MEDS: FERROUS SULFATE 325 MG TAB PO SCH (06:21)
[2021-03-12] MEDS: CALCIUM 600MG + VIT D 400 IU TAB PO SCH (06:21)
[2021-03-12] MEDS ORDERED: ARTIFICIAL TEARS OP PRN (06:26)
[2021-03-12] MEDS: POTASSIUM CHLORIDE CRTAB 20 MEQ TABCR PO SCH ×2 (08:49→21:56)
[2021-03-12] MEDS: GABAPENTIN 400 MG CAP PO SCH ×2 (08:50→21:55)
[2021-03-12] MEDS: METOPROLOL SUCC 25MG EXT REL TAB PO SCH ×2 (08:50→21:56)
[2021-03-12] MEDS: AMIODARONE 200 MG TAB PO SCH (08:50)
[2021-03-12] MEDS: PANTOprazole 40 MG TAB PO SCH ×2 (08:50→21:56)
[2021-03-12] MEDS: METHOCARBAMOL 500 MG TABLET PO SCH ×2 (08:51→21:56)
[2021-03-12] MEDS: BENZONATATE 100 MG CAPSULE PO SCH ×3 (08:51→21:55)
[2021-03-12] MEDS: TORSEMIDE 20 MG TAB PO SCH ×2 (08:51→17:43)
[2021-03-12] MEDS: DOCUSATE SODIUM 100 MG CAP PO SCH ×2 (08:51→21:55)
[2021-03-12] MEDS: APIXABAN 2.5 MG TAB PO SCH ×2 (08:51→21:55)
[2021-03-12] MEDS: ALFUZOSIN HCL 10 MG TAB PO SCH (08:51)
[2021-03-12 08:54] LABS: BUN Creatinine Ratio 22.6 (10-20); Calcium 8.8 mg/dl (8.5-10.1); Creatinine Clr Calc Pharmacy 29.7 ml/min; Est GFR (African American) 34.4 ml/min; Est GFR (Non-African American) 29.7 ml/min; Potassium 3.6 mmol/L (3.5-5.1)
[2021-03-12] MEDS: INSULIN GLARGINE SOLOSTAR 100 UNITS/ML 3 ML PEN SC SCH (08:55)
[2021-03-12] MEDS: INSULIN ASPART 100 UNITS/ML 3 ML PEN SC SCH ×4 (08:56→22:05)
--- NOTE | 2021-03-12 12:51 | Cardiology Progress Note ---
Date of Service March 12, 2021 Assessment & Plan (1) Acute on chronic systolic heart failure: Plan: S/p right sided thoracentesis 03/09/2021 with clinical improvement. Diuretics adjusted with nephrology input. Patient awaiting extended-care facility. 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 Outpatient treatment with patisiran and tafamidis. Palliative care consultation appropriate. Continue supportive care with walker and diuretics. (3) Paroxysmal atrial fibrillation: Plan: Now persistent. Using amiodarone and metoprolol succinate for rate control (4) Acute kidney injury: Plan: Stable creatinine. Transitioned to oral diuretic therapy 03/09. Admission and Anticipated Discharge Date Admission Date: March 01, 2021 Subjective Patient was seen and examined, chart, medications, telemetry reviewed. No acute complaints this morning. Has been ambulatory somewhat in room. Heart rate and oxygen saturations have been improved. Mild lower extremity edema only Review of Systems Review of Systems: All systems reviewed & are unremarkable except as noted in Subjective Results & Data ([facility]) Vital Signs (Past 12 Hours) Vital Signs Temp Pulse Pulse Resp BP Pulse Ox 03/12/21 12:00 36.6 C 69 18 88/56 L 95 03/12/21 08:48 36.4 C L 69 18 102/59 L 94 03/12/21 07:15 71 03/12/21 04:00 36.4 C L 74 18 99/63 L 96 Laboratory Results Laboratory Results - last 24 hr 03/11/21 03/11/21 03/12/21 16:36 20:43 07:35 Sodium Potassium Chloride Carbon Dioxide Anion Gap BUN Creatinine Est Cr Clr Drug Dosing Est GFR ( Amer) Est GFR (Non-Af Amer) BUN/Creatinine Ratio Glucose POC Glucose 115 H 138 H 103 H Calcium 03/12/21 03/12/21 07:57 11:45 Sodium 144 Potassium 3.6 Chloride 104 Carbon Dioxide 36 H Anion Gap 4.0 BUN 46 H Creatinine 2.05 H Est Cr Clr Drug Dosing 29.7 Est GFR ( Amer) 34.4 Est GFR (Non-Af Amer) 29.7 BUN/Creatinine Ratio 22.6 H Glucose 85 POC Glucose 122 H Calcium 8.8 Medications Administered Current Medications Alfuzosin HCl (Alfuzosin Hcl 10 Mg Tab) 10 mg PO QAM ASHLEE Stop: 04/01/21 08:59 Last Admin: 03/12/21 08:51 Dose: 10 mg Documented by: Amiodarone HCl (Amiodarone 200 Mg Tab) 200 mg PO QAM ASHLEE Stop: 04/01/21 08:59 Last Admin: 03/12/21 08:50 Dose: 200 mg Documented by: Apixaban (Apixaban 2.5 Mg Tab) 2.5 mg PO Q12H ASHLEE Stop: 03/31/21 20:59 Last Admin: 03/12/21 08:51 Dose: 2.5 mg Documented by: Artificial Tears (Artificial Tears) 1 drops OP PRN PRN PRN Reason: Dryness Stop: 04/11/21 06:25 Benzonatate (Benzonatate 100 Mg Capsule) 100 mg PO TID [facility] Stop: 04/03/21 20:59 Last Admin: 03/12/21 08:51 Dose: 100 mg Documented by: Dextrose (Dextrose 50% 50 Ml Syringe) 25 - 50 ml IV UD PRN; Protocol PRN Reason: Hypoglycemia Protocol Stop: 03/31/21 18:35 Docusate Sodium (Docusate Sodium 100 Mg Cap) 100 mg PO BID ASHLEE Stop: 04/08/21 20:59 Last Admin: 03/12/21 08:51 Dose: 100 mg Documented by: Ferrous Sulfate (Ferrous Sulfate 325 Mg Tab) 325 mg PO DAILYBB [facility] Stop: 04/01/21 08:59 Last Admin: 03/12/21 06:21 Dose: 325 mg Documented by: Gabapentin (Gabapentin 400 Mg Cap) 400 mg PO BID [facility] Stop: 03/31/21 20:59 Last Admin: 03/12/21 08:50 Dose: 400 mg Documented by: Glucagon (Glucagon For Inj 1 Mg Vial) 1 mg SQ UD PRN; Protocol PRN Reason: Hypoglycemia Protocol Stop: 03/31/21 18:35 Glucose (Glucose 10 Tabs/Tube) 4 - 8 tabs PO UD PRN; Protocol PRN Reason: Hypoglycemia Protocol Stop: 03/31/21 18:35 Glucose (Glucose 40% Gel 15 Gm Tube) 15 - 30 gm PO UD PRN; Protocol PRN Reason: Hypoglycemia Protocol Stop: 03/31/21 18:35 Guaifenesin/Dextromethorphan (Guaifenesin/Dextrom Syrup 200mg/20mg 10ml Udc) 10 ml PO Q6H PRN PRN Reason: Cough Stop: 04/04/21 10:34 Last Admin: 03/10/21 05:29 Dose: 10 ml Documented by: Promethazine HCl 12.5 mg/ (Sodium Chloride) 50.5 mls @ 202 mls/hr IV Q6H PRN PRN Reason: Nausea And Vomiting Stop: 04/07/21 12:33 Insulin Aspart (Insulin Aspart 100 Units/Ml 3 Ml Pen) 0 units SC ACHS [facility] Stop: 04/07/21 20:59 Last Admin: 03/12/21 08:56 Dose: 8 units Documented by: Insulin Glargine (Insulin Glargine Solostar 100 Units/Ml 3 Ml Pen) 0 units SC DAILY [facility]; Protocol Stop: 04/12/21 08:59 Menthol (Cough Drop (Sugar Free) Quinten 24 Quinten/1 Box) 1 quinten BUCCAL PRN PRN PRN Reason: Sore Throat Stop: 04/09/21 14:54 Last Admin: 03/10/21 15:28 Dose: 1 quinten Documented by: Methocarbamol (Methocarbamol 500 Mg Tablet) 500 mg PO BID ASHLEE Stop: 03/31/21 20:59 Last Admin: 03/12/21 08:51 Dose: 500 mg Documented by: Metoprolol Succinate (Metoprolol Succ 25mg Ext Rel Tab) 25 mg PO BID [facility] Stop: 03/31/21 20:59 Last Admin: 03/12/21 08:50 Dose: 25 mg Documented by: Miscellaneous (Carbohydrates For Hypoglycemia ) 15 - 30 gm PO UD PRN PRN Reason: Hypoglycemia Protocol Stop: 03/31/21 18:35 Miscellaneous Information (Pharmacy Glycemic Mgmt Consult) 1 ea N/A UD PRN PRN Reason: Consult Stop: 04/07/21 18:07 Multivitamins/Minerals (Calcium 600mg + Vit D 400 Iu Tab) 1 tab PO DAILYBB [facility] Stop: 04/01/21 08:59 Last Admin: 03/12/21 06:21 Dose: 1 tab Documented by: Oxycodone HCl (Oxycodone Hcl Ir 5 Mg Tab (Immediate Release)) 5 mg PO Q6H PRN PRN Reason: Pain Stop: 03/15/21 18:35 Last Admin: 03/08/21 12:26 Dose: 5 mg Documented by: Pantoprazole Sodium (Pantoprazole 40 Mg Tab) 40 mg PO BID [facility] Stop: 03/31/21 20:59 Last Admin: 03/12/21 08:50 Dose: 40 mg Documented by: Polyethylene Glycol (Polyethylene (Miralax) 17 Gm Pack) 17 gm PO DAILY PRN PRN Reason: Constipation Stop: 04/01/21 16:57 Last Admin: 03/05/21 08:21 Dose: 17 gm Documented by: Potassium Chloride (Potassium Chloride Crtab 20 Meq Tabcr) 20 meq PO BID ASHLEE Stop: 04/09/21 20:59 Last Admin: 03/12/21 08:49 Dose: 20 meq Documented by: Torsemide (Torsemide 20 Mg Tab) 40 mg PO BID17 [facility] Stop: 04/09/21 16:59 Last Admin: 03/12/21 08:51 Dose: 40 mg Documented by:
--- NOTE | 2021-03-12 14:09 | Hospitalist Progress Note ---
Date of Service March 12, 2021 Assessment & Plan (1) Acute on chronic systolic heart failure: (2) Cardiac amyloidosis: (3) Abdominal pain: Plan: #. 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 Nephro recs: Stop IV lasix, Tosemide raised from 20 to 40 mg BID 03/10, maximize on torsemide before adding metolazone. Continue with KCL 20 BID to keep K normal. Continue to monitor K+. Renal panel in a week of DC and Nephro appointment within 2-3 weeks of DC. Stable for DC from their POV. Cardio recs: OK with po torsemide. Pt on RA, and has improved after continued diuresis and Rt Thoracentesis 03/09. Encourage multiple daily ambulation with assistance. #. Persistent mod. Right Pleural Effusion - Resolved 03/09 CXR: 1. Persistent moderate right pleural effusion with associated right basilar opacity. 2. Cardiomegaly with pulmonary vascular congestion. Continued Pl Eff despite aggressive diuresis s/p Rt thoracentesis 03/10 - 1 L transudative fluid taken out. F/u 03/09 Pl Fluid Cx. Encourage incentive spirometry. Appreciate pulm recommendation. #. Acute on Chronic Renal Failure Patient's creatine stable around 2 and is better than his outpatient baseline of 3.2 per nephrology Increased on torsemide dose -see above Will get electrolytes level on 03/14 if pt still here Avoid NSAIDs and contrast studies. #. Bronchitis - Improved Pt complaining of dry cough since couple of days. Pt reports improvement of dry cough c/w doxy for total of 5 days. Stopped Doxy c/w tessalon perles #. Abdominal Pain/Constipation Resolved. Pt having regular BM. C/w Stool softener. Continue to monitor clinically. DC with stool softener at time of discharge. Tolerating the diet well. #. Deconditioning due to above , PT/OT nick appreciated recommends inpatient rehab #. Aflutter Rate controlled, on beta-teetee Eliquis for stroke prophylaxis dose reduced to 2.5 mg BID for poor renal clearance #. 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 Hyperglycemia Last A1C of 6.2, on sliding scale inpatient, consulted pharmacy for management. Disposition: ~ Did peer to peer with his insurance company for inpatient rehab 03/08 -- Denied ~ Possible DC when gets placement and no new issues arises. At this point, per CM's note, seems like they would be unable to accept him until next week. ~ Prior week hospitalist had a lengthy discussion with pt - explained is detail the prognosis and progressive worsening of heart function with amylodosis and possible renal failure. Pt understands the severity of his illness, doesn't want any resuscitative measures/heroic measures and no life support/dialysis/feeding tube when he declines clinically. ~ Hoping to go to rehab for short time , but in future as disease progresses and diuretics and medication does not help, Pt wants treatment to be directed to keep him comfortable only code status changed to DNR/DNI ~ Per CM, if he gets declined to [facility] tomorrow -> he will want to go to home with HHC and private caregivers. Admission and Anticipated Discharge Date Admission Date: March 01, 2021 Subjective Patient was lying down in bed, NAD, on RA. Patient denies Headache, Dizziness, Fever, Chills, Sore throat, Cough, Chest pain, palpitations, SOB, Belly pain, pain/burning while passing urine. Last Bowel movement [yesterday]. No issues overnight. Pt feels even better after the Rt thoracentesis. Per Pt, he is eating good. Physical Exam Physical Exam: GENERAL: Alert and oriented x3. NAD, on RA. HEENT: No pallor, no icterus. Pupils equal, round and reactive to light. Oral mucosa moist. NECK: No JVD, no neck masses. HEART: S1 and S2 heard. Regular rate and rhythm. Holosystolic murmur over pulmonic area noted, no gallop. RESPIRATORY SYSTEM: Normal AP diameter. No accessory muscle use. No wheezing, no crackles. Decreased breath sounds at bases R=L ABDOMEN: Soft, bowel sounds present, nontender, no distention noted. CENTRAL NERVOUS SYSTEM: Alert and oriented x3. No facial droop. Speech is clear. Obeys simple commands. Moves extremities. EXTREMITIES: 1 to 2+ edema, no erythema seen. Results & Data Results & Data ([facility]) Vital Signs (Past 12 Hours) Vital Signs Temp Pulse Pulse Resp BP Pulse Ox 03/12/21 12:00 36.6 C 69 18 88/56 L 95 08/01/21 08:48 36.4 C L 69 18 102/59 L 94 03/12/21 07:15 71 03/12/21 04:00 36.4 C L 74 18 99/63 L 96 (1) Abdominal pain Abdominal location: generalized Qualified Code(s): R10.84 - Generalized abd ominal pain
[2021-03-12] MEDS: POLYETHYLENE (MIRALAX) 17 GM PACK PO PRN (14:57)
[2021-03-13] MEDS: FERROUS SULFATE 325 MG TAB PO SCH (06:10)
[2021-03-13] MEDS: CALCIUM 600MG + VIT D 400 IU TAB PO SCH (06:10)
[2021-03-13] MEDS: INSULIN ASPART 100 UNITS/ML 3 ML PEN SC SCH ×4 (09:16→20:30)
[2021-03-13] MEDS: INSULIN GLARGINE SOLOSTAR 100 UNITS/ML 3 ML PEN SC SCH (09:17)
[2021-03-13] MEDS: AMIODARONE 200 MG TAB PO SCH (10:21)
[2021-03-13] MEDS: ALFUZOSIN HCL 10 MG TAB PO SCH (10:21)
[2021-03-13] MEDS: PANTOprazole 40 MG TAB PO SCH ×2 (10:21→20:25)
[2021-03-13] MEDS: TORSEMIDE 20 MG TAB PO SCH ×2 (10:21→16:44)
[2021-03-13] MEDS: DOCUSATE SODIUM 100 MG CAP PO SCH ×2 (10:21→20:24)
[2021-03-13] MEDS: BENZONATATE 100 MG CAPSULE PO SCH ×3 (10:21→20:24)
[2021-03-13] MEDS: POTASSIUM CHLORIDE CRTAB 20 MEQ TABCR PO SCH ×2 (10:21→20:25)
[2021-03-13] MEDS: METOPROLOL SUCC 25MG EXT REL TAB PO SCH ×2 (10:21→20:25)
[2021-03-13] MEDS: APIXABAN 2.5 MG TAB PO SCH ×2 (10:21→20:24)
[2021-03-13] MEDS: METHOCARBAMOL 500 MG TABLET PO SCH ×2 (10:21→20:25)
[2021-03-13] MEDS: GABAPENTIN 400 MG CAP PO SCH ×2 (10:21→20:24)
--- NOTE | 2021-03-13 13:35 | Palliative Care Progress Note ---
Date of Service March 13, 2021 Assessment & Plan (1) Weakness: Plan: Improving. Ambulating in hallway with no difficulties. (2) Palliative care encounter: Plan: Mr. Givens was able to talk with me at his bedside in a meaningful way. He expressed that he will be going home with [facility]. We talked about him receiving additional transitional care liaison support at home, which he had started making some phone calls to arrange through [employer]. Yesterday, he established Cody, his son, as his decision maker. Mr. Givens was transitioned to DNR/DNI. We discussed a POLSt and he declined completing one at this time. Possible discharge today or tomorrow. Palliative Medicine will sign off at this time. (3) Acute on chronic systolic heart failure: (4) Familial transthyretin amyloid cardiomyopathy: Admission and Anticipated Discharge Date Admission Date: March 01, 2021 Subjective patient was sitting at his bedside in no apparent distress. We were able to have a meaningful conversation. Patient denies REYNOSO, CP, SOB. He had a right sided thoracentesis. See A/P for further details. Review of Systems Review of Systems: [place] Symptom Assessment Scale Pain 0/3 Dyspnea 0/3 Anxiety 0/3 Fatigue 1/3 Drowsiness 0/3 Palliative Performance Score 60% Physical Exam Constitutional: comfortable; no acute distress Respiratory: normal respiratory effort; no labored breathing Cardiovascular: Extremities: no edema Gastrointestinal (Abdomen): Inspection/Auscultation: abdomen not distended Musculoskeletal: Extremities: + muscle atrophy Neurologic: awake; no focal motor deficits and not confused Psychiatric: Orientation: oriented x 3 Results & Data ([facility]) Vital Signs (Past 12 Hours) Vital Signs Temp Pulse Pulse Resp BP Pulse Ox 03/13/21 11:00 36.4 C L 75 18 99/69 L 92 03/13/21 08:00 36.5 C 71 18 100/70 96 03/13/21 07:46 61 03/13/21 04:07 80 03/13/21 04:00 36.4 C L 71 18 102/69 95 PG Care Time/CCT Total # of Minutes Spent Total Time Spent with Patient: Total time spent is greater than 50% in coordination of care (as documented) at patient's floor/unit and/or counseling patient: 35 minutes with >50% of that time spent assessing the patient, discussing goals of care with the patient and collaborating with the IDT Coding Level of Care Code 26668 Subseq Hosp Care Lvl 3 Diagnoses Weakness R53.1 Palliative care encounter Z51.5 Acute on chronic systolic heart failure I50.23 Familial transthyretin amyloid cardiomyopathy E85.4; I43 Time Spent (min) 35
--- NOTE | 2021-03-13 15:36 | Hospitalist Progress Note ---
Date of Service March 13, 2021 Assessment & Plan (1) Acute on chronic systolic heart failure: (2) Cardiac amyloidosis: (3) Abdominal pain: Plan: #. 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 Nephro recs: Stop IV lasix, Tosemide raised from 20 to 40 mg BID 03/10, maximize on torsemide before adding metolazone. Continue with KCL 20 BID to keep K normal. Continue to monitor K+. Renal panel in a week of DC and Nephro appointment within 2-3 weeks of DC. Stable for DC from their POV. Cardio recs: OK with po torsemide. Pt on RA, and has improved after continued diuresis and Rt Thoracentesis 03/09. Encourage multiple daily ambulation with assistance. Will get electrolytes for tomorrow. #. Persistent mod. Right Pleural Effusion - Resolved 03/09 CXR: 1. Persistent moderate right pleural effusion with associated right basilar opacity. 2. Cardiomegaly with pulmonary vascular congestion. Continued Pl Eff despite aggressive diuresis s/p Rt thoracentesis 03/10 - 1 L transudative fluid taken out. F/u 03/09 Pl Fluid Cx. Encourage incentive spirometry. Appreciate pulm recommendation. #. Acute on Chronic Renal Failure Patient's creatine stable around 2 and is better than his outpatient baseline of 3.2 per nephrology Increased on torsemide dose -see above Will get electrolytes level on 03/14 if pt still here Avoid NSAIDs and contrast studies. #. Bronchitis - Improved Pt complaining of dry cough since couple of days. Pt reports improvement of dry cough c/w doxy for total of 5 days. Stopped Doxy c/w tessalon perles #. Abdominal Pain/Constipation Resolved. Pt having regular BM. C/w Stool softener. Continue to monitor clinically. DC with stool softener at time of discharge. Tolerating the diet well. #. Deconditioning due to above , PT/OT eval appreciated recommends inpatient rehab #. Aflutter Rate controlled, on beta-teetee Eliquis for stroke prophylaxis dose reduced to 2.5 mg BID for poor renal clearance #. 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 Hyperglycemia Last A1C of 6.2, on sliding scale inpatient, consulted pharmacy for management. Disposition: ~ Did peer to peer with his insurance company for inpatient rehab 03/08 -- Denied ~ Possible DC when gets placement and no new issues arises. At this point, per CM's note, seems like they would be unable to accept him until next week. ~ Prior week hospitalist had a lengthy discussion with pt - explained is detail the prognosis and progressive worsening of heart function with amylodosis and possible renal failure. Pt understands the severity of his illness, doesn't want any resuscitative measures/heroic measures and no life support/dialysis/feeding tube when he declines clinically. ~ Hoping to go to rehab for short time , but in future as disease progresses and diuretics and medication does not help, Pt wants treatment to be directed to keep him comfortable only code status changed to DNR/DNI ~ Per CM, if he gets declined to [facility] tomorrow -> he will want to go to home with C and private caregivers. ~ Patient denied SNF 03/13. Pt going with [facility]. Son wanted to keep him one more day to arrange 04/03 caregiver. DC tomorrow. Admission and Anticipated Discharge Date Admission Date: March 01, 2021 Subjective Patient was lying down in bed, NAD, on RA. Patient denies Headache, Dizziness, Fever, Chills, Sore throat, Cough, Chest pain, palpitations, SOB, Belly pain, pain/burning while passing urine. Last Bowel movement [yesterday]. No issues overnight. Pt feels better. Per Pt, he is eating good. Physical Exam Physical Exam: GENERAL: Alert and oriented x3. NAD, on RA. HEENT: No pallor, no icterus. Pupils equal, round and reactive to light. Oral mucosa moist. NECK: No JVD, no neck masses. HEART: S1 and S2 heard. Regular rate and rhythm. Holosystolic murmur over pulmonic area noted, no gallop. RESPIRATORY SYSTEM: Normal AP diameter. No accessory muscle use. No wheezing, no crackles. Decreased breath sounds at bases R=L ABDOMEN: Soft, bowel sounds present, nontender, no distention noted. CENTRAL NERVOUS SYSTEM: Alert and oriented x3. No facial droop. Speech is clear. Obeys simple commands. Moves extremities. EXTREMITIES: 1 to 2+ edema, no erythema seen. Results & Data Results & Data ([facility]) Vital Signs (Past 12 Hours) Vital Signs Temp Pulse Pulse Resp BP Pulse Ox 03/13/21 15:00 91 H 03/13/21 11:00 36.4 C L 75 18 99/69 L 92 03/13/21 08:00 36.5 C 71 18 100/70 96 03/13/21 07:46 61 03/13/21 04:07 80 03/13/21 04:00 36.4 C L 71 18 102/69 95 (1) Abdominal pain Abdominal location: generalized Qualified Code(s): R10.84 - Generalized abdominal pain
[2021-03-14] MEDS ORDERED: DICLOFENAC SOD 1% GEL 100 GM TUBE EXT PRN (06:11)
[2021-03-14] MEDS: CALCIUM 600MG + VIT D 400 IU TAB PO SCH (07:09)
[2021-03-14] MEDS: FERROUS SULFATE 325 MG TAB PO SCH (07:09)
[2021-03-14 08:18] LABS: BUN Creatinine Ratio 20.6 (10-20); Calcium 8.8 mg/dl (8.5-10.1); Creatinine Clr Calc Pharmacy 31.2 ml/min; Est GFR (African American) 36.6 ml/min; Est GFR (Non-African American) 31.6 ml/min; Magnesium 2.2 mg/dl (1.8-2.4); Potassium 3.4 mmol/L (3.5-5.1)
[2021-03-14 08:19] LABS: Phosphorus 2.8 mg/dl (2.5-4.9)
[2021-03-14] MEDS: INSULIN ASPART 100 UNITS/ML 3 ML PEN SC SCH ×2 (08:56→13:02)
[2021-03-14] MEDS: INSULIN GLARGINE SOLOSTAR 100 UNITS/ML 3 ML PEN SC SCH (08:57)
[2021-03-14] MEDS: AMIODARONE 200 MG TAB PO SCH (09:02)
[2021-03-14] MEDS: ALFUZOSIN HCL 10 MG TAB PO SCH (09:02)
[2021-03-14] MEDS: APIXABAN 2.5 MG TAB PO SCH (09:03)
[2021-03-14] MEDS: POTASSIUM CHLORIDE CRTAB 20 MEQ TABCR PO SCH (09:03)
[2021-03-14] MEDS: PANTOprazole 40 MG TAB PO SCH (09:03)
[2021-03-14] MEDS: TORSEMIDE 20 MG TAB PO SCH (09:03)
[2021-03-14] MEDS: METOPROLOL SUCC 25MG EXT REL TAB PO SCH (09:03)
[2021-03-14] MEDS: GABAPENTIN 400 MG CAP PO SCH (09:03)
[2021-03-14] MEDS: BENZONATATE 100 MG CAPSULE PO SCH ×2 (09:03→14:05)
[2021-03-14] MEDS: METHOCARBAMOL 500 MG TABLET PO SCH (09:03)
[2021-03-14] MEDS: DOCUSATE SODIUM 100 MG CAP PO SCH (09:03)
--- NOTE | 2021-03-14 10:08 | Pharmacy Report ---
Pharmacy Glycemic Short Note 2 - Date of Service March 14, 2021 - Glycemic Short BSG Results (Last 24 hours): 03/13/21 03/13/21 03/13/21 11:31 16:20 20:05 Glucose POC Glucose 211 H 102 H 138 H 03/14/21 03/14/21 07:25 07:51 Glucose 121 H POC Glucose 121 H OUTPATIENT ANTIDIABETIC REGIMEN: * Lantus 20 units SC HS * HbA1c: 6.2% (03/02/21) ASSESSMENT: 03/14/21 * Pt has received 25 units of insulin over the past 24hrs * 8 units of basal with Lantus * 17 units of bolus with NovoLog * BSGs in goal range with current orders. Regimen is weighted towards prandial insulin but patient appears to be quite CHO sensitive. No changes needed at this time. 03/11/21 * BSGs yesterday were [phone] mg/dL. * Patient received 28 units of insulin (10 units of Lantus and 18 units of bolus). * Fasting today was 71 mg/dL. * Decrease basal by 50% due to slight low but significant decrease in fasting BSGs (119 mg/dL to 71 mg/dL). * Continue Novolog. 03/10: * BSGs reasonably well controlled yesterday, 134, 181, 110, and 153 mg/dL * Received 25 units of insulin (10 units of basal, 15 units of prandial/correctional bolus) * Fasting BSG of 119 mg/dL -> improved from 138 mg/dL * Plan to continue current insulin orders 03/09: * ATP is a 80 year old male admitted on 03/01/21 for evaluation of lower abdominal pain, increasing shortness of breath, and increased bilateral leg swelling * Pharmacy consulted for glycemic management on 03/08/21 due to relatively poor inpatient glycemic management thus far (BSGs ranging 149-241 mg/dL over past couple of days) * Novolog tightened last evening (lowered goal range and tightened carb ratio) - will continue * Patient takes basal at HS at home - will give at lunchtime today and plan to step back to HS over next couple of days * 100% basal at home - will look to make 50/50 split while inpatient PLAN FOR INPATIENT GLYCEMIC CONTROL: * Basal insulin -Continue * Lantus 8 units SC with daily * Bolus insulin - continue * NovoLog per scale ACHS or Q6hrs while NPO * Goal Range: Low 110 mg/dL - High 140 mg/dL * Correction Factor: 25 mg/dL/unit * Nutritional / Prandial insulin per carb ratio of 1 unit per 8 grams CHO consumed PLAN FOR DISCHARGE: * HbA1c of 6.2% is excellent * Resume outpatient regimen upon discharge, provided patient not experiencing hypoglycemia as an outpatient
[2021-03-14 11:13] VITALS: TEMP 97.5; O2SAT 95
--- NOTE | 2021-03-14 12:59 | Cardiology Progress Note ---
Date of Service March 14, 2021 Assessment & Plan (1) Acute on chronic systolic heart failure: Plan: Patient appears clinically stable with plans to discharge to home with home health care. Overall prognosis remains limited though currently compensated. I discussed CHF instructions in detail with the patient and need for careful monitoring of fluid intake and daily weights (2) Familial transthyretin amyloid cardiomyopathy: (3) Paroxysmal atrial fibrillation: Plan: Now persistent. Using amiodarone and metoprolol succinate for rate control (4) Acute kidney injury: Plan: Stable creatinine. Transitioned to oral diuretic therapy 03/09. Admission and Anticipated Discharge Date Admission Date: March 01, 2021 Subjective Patient was personally seen and chart reviewed. No complaints this morning ambulatory in room. No chest pain or worsening shortness of breath. Still having good diuresis on oral regimen with weight stable Results & Data ([facility]) Vital Signs (Past 12 Hours) Vital Signs Temp Pulse Pulse Resp BP BP Pulse Ox 03/14/21 11:12 36.4 C L 81 20 133/62 95 03/14/21 08:09 36.5 C 68 20 99/73 L 99 03/14/21 07:13 75 03/14/21 03:07 36.5 C 75 18 92/64 L 92
[2021-03-14 13:50] VITALS: BP 92/64; PULSE 72
--- NOTE | 2021-03-14 17:44 | Discharge Summary ---
Date of Service March 14, 2021 Admission HPI Per Admitting Provider This is an 80-year-old male with PMHx of systolic and diastolic CHF, paroxysmal atrial fibrillation, dual-chamber ICD, amyloid cardiomyopathy, bicuspid aortic valve, mild aortic valve stenosis, HTN, HLD DM type II, CKD stage III, history of SVT, failed back surgery syndrome, narcolepsy without cataplexy. Mr. Givens presents with 1 week of complaints of abdominal pain in the lower/umbilical abdomen, denies associated neausea, vomiting or diarrhea. He feels increased bloating is the major issue. His appetite has also been decreased over the past week, denies sensation of food getting stuck or coughing/choking on food or liquids. He has been eating Meals on Wheels, frozen freezer meals and frozen fruits and vegetables. He denies any changes in his bowel habits, last BM was this morning, denies any dark tarry stools hematochezia, or blood streaking. Reports his last colonoscopy was about 5 years ago and was fairly normal from what he remembers. He denies any fevers or chills or sweats. Patient notes that he has become increasingly short of breath since being here in the ER and feels that his breathing is more rapid sitting at rest. He has increased swelling in both of his legs up to his knees. Metolazone had been reduced from every other day to 2 times weekly, but then 3 weeks ago stopped taking this medication altogether. He reports that his urination has decreased somewhat over the past week, feels that his torsemide does not seem to be putting out the same amount of urine.He is concerned about his kidneys and has been working with a capture manager as an outpatient. Admission Exam Per Admitting Provider General: -[place] male, awake, alert, no apparent distress Head: Normocephalic, atraumatic ENT: PERRL, EOMI, no pharyngeal exudate, mucous membranes moist Chest: + Crackles throughout, absent at right base, on room air desats to 87-88% on room air, no wheeze or rhonchi Cardiac: Irregularly irregular, + ROBER, +mild JVD, normal peripheral pulses, good capillary refill Abdominal: NABS x 4 quadrants, soft, + distended,nontender to palpation, no rebound or guarding, specifically no right upper quadrant tenderness, negative Guevara sign. Extremities: 3+ pitting peripheral edema, no erythema, calfs nontender to palpation Psych: Normal mood and affect Neuro: AAO x 3, strength intact bilaterally and rated 4/5, no motor deficits, speech is clear, + quick jerking movements of limbs throughout exam. Principal Diagnosis Acute on Chronic Systolic CHF Moderate right pleural effusion s/p throacentesis Chronic renal failure Discharge Exam GENERAL: Alert and oriented x3. NAD, on RA. HEENT: No pallor, no icterus. Pupils equal, round and reactive to light. Oral mucosa moist. NECK: No JVD, no neck masses. HEART: S1 and S2 heard. Regular rate and rhythm. Holosystolic murmur over pulmonic area noted, no gallop. RESPIRATORY SYSTEM: Normal AP diameter. No accessory muscle use. No wheezing, no crackles. Decreased breath sounds at bases R=L ABDOMEN: Soft, bowel sounds present, nontender, no distention noted. CENTRAL NERVOUS SYSTEM: Alert and oriented x3. No facial droop. Speech is clear. Obeys simple commands. Moves extremities. EXTREMITIES: 1 to 2+ edema, no erythema seen. Discharge Data Allergies Allergy/AdvReac Type Severity Reaction Status Date / Time No Known Allergies Allergy Mild Verified 11/14/20 01:03 Consultations 03/01/21 13:48 ED Decision to Admit Stat 03/01/21 15:14 Consult Nephrology Routine 03/01/21 18:36 Consult Cardiology Routine 03/08/21 16:04 Consult Palliative Care Routine 03/09/21 14:07 Consult Pulmonology Routine Ordered Studies 03/01/21 10:35 CT abd pelvis wo con Stat 03/01/21 15:14 US gallbladder Stat 03/09/21 14:05 US thoracentesis Routine 03/09/21 14:14 US point of care ultrasound Routine US point of care ultrasound Urgent Hospital Course (1) Acute on chronic systolic heart failure: (2) Cardiac amyloidosis: (3) Abdominal pain: #. 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 Nephro recs: Stop IV lasix, Tosemide raised from 20 to 40 mg BID 03/10, maximize on torsemide before adding metolazone. Continue with KCL 20 BID to keep K normal. Continue to monitor K+. Renal panel in a week of DC and Nephro appointment within 2-3 weeks of DC. Stable for DC from their POV. Cardio recs: OK with po torsemide. Pt on RA, and has improved after continued diuresis and Rt Thoracentesis 03/09. Encourage multiple daily ambulation with assistance. Pt will be DC'd on Torsemide 40 mg twice a day, metolazone will be stopped. He will be on potassium supplements with f/u renal panel within a week. #. Persistent mod. Right Pleural Effusion - Resolved 03/09 CXR: 1. Persistent moderate right pleural effusion with associated right basilar opacity. 2. Cardiomegaly with pulmonary vascular congestion. Continued Pl Eff despite aggressive diuresis s/p Rt thoracentesis 03/10 - 1 L transudative fluid taken out. F/u 03/09 Pl Fluid Cx. Encourage incentive spirometry. #. Acute on Chronic Renal Failure Patient's creatine stable around 2 and is better than his outpatient baseline of 3.2 per nephrology Increased on torsemide dose -see above Avoid NSAIDs and contrast studies. f/u renal panel in a week's time upon discharge and forward the result to your PCP and Kidney doctor. #. Bronchitis - Improved s/p doxy x 5 days #. Abdominal Pain/Constipation Resolved. Pt having regular BM. C/w Stool softener. #. Deconditioning due to above , to continue with home PT #. Aflutter Rate controlled, on beta-teetee Eliquis for stroke prophylaxis dose reduced to 2.5 mg BID for poor renal clearance #. 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 Hyperglycemia Last A1C of 6.2, on sliding scale inpatient, consulted pharmacy for management. Disposition: ~ Did peer to peer with his insurance company for inpatient rehab 03/08 -- Denied ~ Possible DC when gets placement and no new issues arises. At this point, per CM's note, seems like they would be unable to accept him until next week. ~ Prior week hospitalist had a lengthy discussion with pt - explained is detail the prognosis and progressive worsening of heart function with amylodosis and possible renal failure. Pt understands the severity of his illness, doesn't want any resuscitative measures/heroic measures and no life support/dialysis/feeding tube when he declines clinically. ~ Patient hoping to go to rehab for short time , but in future as disease pro gresses and diuretics and medication does not help, Pt wants treatment to be directed to keep him comfortable only code status changed to DNR/DNI ~ Patient denied SNF 03/13. Pt going with [facility]. Upon discharge following instructions were communicated: Follow up with your PCP with in a week's time for reevaluation and medicine adjustment. Follow up with your heart doctor in 3-4 weeks. Follow up with your Nephrology in 2-3 weeks. Get CBC, BMP and Magnesium done in a week's time and have it forwarded to your PCP and Nephrology doctor. Your metolazone has been stopped and torsemide has been increased to 40 mg twice a day from 20 mg twice a day. Total Time Total Time Spent Total Time Spent (In Minutes): 40 Discharge Plan Discharge Items Patient Disposition: Home - Home Health Services Reason For Visit: CHF EXACERBATION Discharge Diagnosis: Acute on Chronic Systolic CHF Moderate right pleural effusion s/p throacentesis Chronic renal failure Condition on Discharge: Good Activity: Resume your previous activity Non-emergency contact: Primary Care Provider Call non-emergency contact if: you have any medication questions Follow-up/Referrals: Gerhard Jimenez MD [Primary Care Provider] - Diet: Carb Consistent or DM2 and Heart Healthy Addtl Attending Provider Instructions: Call 911 and go to the Emergency Room if: * You have tightness or pain in your chest that does not go away with rest or Nitroglycerin * You are very short of breath even with rest Call your doctor if any of the following symptoms or problems start or get worse: * Shortness of breath or difficulty breathing * Wake up at night short of breath * Chest pain * Cough * Swelling of your hands, fee, or legs * More fatigued or tired with your normal activity * Palpitations - sudden fast heart beats WEIGHT * Weigh yourself every morning after using the bathroom. * Use the same scale. * Wear the same amount of clothing. * Write your weight down on your chart. * Call your doctor if you gain more than 2-3 pounds in 1-2 days. MEDICATIONS * Use this discharge instruction sheet for instructions. * Take your medications at the time your doctor ordered. * Do not skip a dose of your medicines. * If you miss a dose of medicine, take as soon as possible, but DO NOT DOUBLE A DOSE. * Read your medicine information when you get home. * Know all of the side effects of your medicine. * Call your doctor's office if you have any side effects. * Be sure all of your doctors know what medicine and herbs you take (including cold, flu, and herbal medicine). * Pain Medicine: If you do not get relief from your pain, please call your doctor for help. Take the following with you to your follow-up doctor appointments: * Weight Chart * Medication List * List of questions Do not drink excessive alcohol, beer or wine. Follow up with your PCP with in a week's time for reevaluation and medicine adjustment. Follow up with your heart doctor in 3-4 weeks. Follow up with your Nephrology in 2-3 weeks. Get CBC, BMP and Magnesium done in a week's time and have it forwarded to your PCP and Nephrology doctor. Your metolazone has been stopped and torsemide has been increased to 40 mg twice a day from 20 mg twice a day. Pending Studies at Discharge: Yes Studies:: 03/09 Pleural fluid AFB culture pending Stand-Alone Forms: My [facility], Smoking Cessation Medications and DC Order Prescriptions: New torsemide 20 mg Tablet 40 mg PO BID17 30 Days Qty: 120 RF: 0 potassium chloride [Klor-Con M20] 20 mEq Tablet,Er Particles/Crystals 20 meq PO BID 30 Days Qty: 60 RF: 0 docusate sodium 100 mg Capsule 100 mg PO BID 10 Days Qty: 20 RF: 0 Continued methocarbamol 500 mg tablet 500 mg PO BID Qty: 90 RF: 0 metoprolol succinate [Toprol XL] 25 mg Tablet Extended Release 24 Hr 25 mg PO BID RF: 0 amiodarone 200 mg Tablet 200 mg PO QAM RF: 0 Eliquis 2.5 mg tablet 2.5 mg PO Q12H Qty: 60 RF: 3 ferrous sulfate [iron] 325 mg (65 mg iron) Tablet 325 mg PO QAM RF: 0 glucosamine-chondroitin [Cidaflex] 500-400 mg Tablet 1 tab PO QAM RF: 0 oxycodone [Roxicodone] 5 mg tablet 5 mg PO Q6H PRN (Reason: Pain) RF: 0 gabapentin 400 mg capsule 400 mg PO BID RF: 0 omeprazole 20 mg Capsule,Delayed Release(Dr/Ec) 20 mg PO BID RF: 0 green tea extract 375 mg Capsule 0 mg PO DAILY RF: 0 calcium carbonate-vitamin D3 [Calcium 500 + D] 500 mg(1,250mg) -200 unit Tablet 1 tab PO DAILY RF: 0 patisiran (lipid complex) 2 mg/mL Solution 0 mg IV .[id number] RF: 0 tafamidis 61 mg Capsule 61 mg PO DAILY RF: 0 (DME) pen needle,diabetic, disp unit 32 gauge x 5/32" needle See Rx Instructions .ROUTE .MEDSUPPLY Qty: 100 RF: 0 alfuzosin [Uroxatral] 10 mg tablet extended release 24 hr 10 mg PO QAM RF: 0 Lantus Solostar U-100 Insulin 100 unit/mL (3 mL) insulin pen 20 unit SC DAILY RF: 0 Discontinued metolazone 2.5 mg tablet 2.5 mg PO 2XWK RF: 0 torsemide 20 mg tablet 40 mg PO QAM RF: 0 potassium chloride 10 mEq tablet,ER particles/crystals 20 meq PO UD RF: 0 Discharge Orders: Discharge Order (Routine); Ordered 03/14/21 Ordered By: Maci Casillas/Other Patient Handouts: A1C, Managing Type 2 Diabetes Admission Data Admit Date/Time: 03/01/21 15:14 Attending Provider: Maci Greenwood Admit Provider: Edison Jenkins Primary Care Provider: Gerhard Jimenez Other Providers: Nikko Jama ; Edison Jenkins ; Gustabo Llamas ; [facility] ; [facility] ; Zora Chauhan ; Anthony Villarreal ; Anoop, ; [place] ; [facility] Other Interventions: Discharge Summary Assessment (RN) Last Done: 03/14/21 13:46
[2021-03-15] MEDS ORDERED: INSULIN GLARGINE SOLOSTAR 100 UNITS/ML 3 ML PEN SC SCH (09:00)
== END 2021-03-14 15:30 | disposition home health service (06) | DRG 291 ==
LOC: ED 09:36 → 2N 15:14 → SUATTDRO 15:14 → 2N 18:11

== ENCOUNTER 2021-03-30 13:14 | Inpatient (IN) ==
--- NOTE | 2021-03-30 14:16 | Emergency Department Note ---
Impression & Plan CHF (congestive heart failure), CKD (chronic kidney disease), Liver dysfunction, Acute urinary retention ED Provider Note NAME: Ernestina GIVENS AGE: 80 SEX: M : 1940 ARRIVES VIA: Ambulance INFORMANT: Patient, ED PROVIDER(S): [place] MD Chief Complaint: Fall HPI: Patient does present from home due to concern for fall. The patient reportedly had to have a fall and when the patient's home health nurse had seen him they did call an ambulance with the patient initially refused. Physical therapy arrived and did recommend that the patient be seen. Patient currently has no acute complaints at this time. The patient does take Eliquis. Patient denies any fevers or chills. Patient's BSG was reportedly unremarkable. They were concerned about possible EKG but the patient does have a history of a p acemaker. I did review the patient's prior stay and the patient does have a history of CHF and kidney disease. Patient does live at home by himself. Nothing is made him feel any better or worse in particular. The patient states that he is taking his medications at home ROS: See HPI for pertinent positives and negatives. A total of 10 systems were reviewed and otherwise negative. Past medical history: See below Surgical history: See below Social history: See below Physical Exam: GENERAL: NAD, wearing a mask, non-toxic. EYE EXAM: Normal conjunctiva. PERRL, no anisocoria and EOM's grossly intact w/o pain. NECK: Supple, no nuchal rigidity, no adenopathy, non-tender. No signs of mening ismus. LUNGS: Decreased breath sounds bilateral bases. Normal chest wall mechanics. HEART: Irregularly irregular, no MRG. ABDOMEN: Abdomen soft, non-tender, normo-active bowel sounds, no masses, no r ebound or guarding. BACK: No CVA TTP. SKIN: No rashes and no bruising. UPPER EXTREMITIES: Upper extremities are grossly normal. LOWER EXTREMITIES: Grossly normal, 1-2+ bilateral symmetric lower extremity edema. NEURO EXAM: GCS of 14, easily arousable to voice, cranial nerves II-XII grossly intact, normal speech, moves all 4 extremities on command w/o issue. Differential diagnoses: Infection, dehydration, metabolic abnormality, hypo/hyperglycemia, electrolyte disturbance, anemia, hypoxia, cardiac sources, intracerebral event, toxicologic, neurologic, as well as other pathologies. Course: Patient was seen and evaluated the bedside. Full history physical exam was performed. [EKG interpreted by me] Atrial flutter with variable block, rate of 88, wide QRS, left bundle branch block pattern, Q waves throughout. Imaging Studies: See Below [Cardiac monitoring: An order was placed for continuous cardiac monitoring. The monitor shows a rate of 79 with a regular irregular rhythm.] MDM: Patient did present with concern for fall but otherwise had no acute complaints. The patient is easily arousable but history is somewhat limited and that the patient does not provide much additional details with regard to what happened today other than falling out of bed. Patient did have blood work completed. I did review the patient's medical records which show that the patient is DNR/DNI the patient has had CHF and kidney dysfunction. EKG shows likely flutter. The patient did have the [employer] pacemaker interrogated which showed fib and flutter but no other concerning findings per the rep. I did contact the patient's sister who subsequently was able to get in touch with the patient's son Chinmay Gviens who is the patient's POA. He states that he is amenable to medical treatment but does not want overly aggressive inpatient treatment unless as otherwise instructed by his father. He did state that he has been talking to the last 2 days and seems as though he has had a decrease in alertness. Patient did have a recent history of admission and discharge but was unable to obtain p lacement due to insurance issues at a rehab and thus was sent home. Patient has normal white count H&H and platelet count. The patient does have acute on chronic kidney dysfunction with a crit of 4.7 potassium 5.7. The patient's bilirubin and LFTs are elevated. The patient does not complain of right upper quadrant pain upon reassessment. Troponin is elevated but it is chronic in nature but slightly more than normal. The patient did have a CT abdomen pelvis completed without contrast as well as CT head and cervical spine. CT head and cervical spine are negative. CT abdomen pelvis did show likely volume overload consistent changes. The patient does have gallbladder distention but this appears chronic. No gallbladder wall thickening. Do not believe the patient requires surgical consultation at this time. Furthermore patient likely poor operative candidate. The patient does have a moderate right-sided pleural effusion and possible new L1 compression fracture. Patient does have a bladder distention. Vo catheter was placed. The patient's liver dysfunction may be secondary to the patient's CHF and causing congestion. I did speak with the on- call hospitalist and the patient was admitted by Dr. Jenkins. I did update the patient son when he called a second time for an update. He is currently in agreement with plan of care. Past Med/Surg History Medical History Atrial fibrillation "A.Flutter" onset March 2019 BPH (benign prostatic hyperplasia) Cardiac amyloidosis Chronic back pain Chronic combined systolic and diastolic CHF (congestive heart failure) CKD (chronic kidney disease), stage III Seen in ED on 02/03 for acute dehydration/JOO. Baseline Cr noted to be around 2.0, was elevate at 2.7. Congestive heart failure Degenerative disc disease Diabetes mellitus, type II monitoring higher glucose lab testing, possibly related to medication changes in 2019. to have rechecked. following with PCP. Diverticular disease GERD (gastroesophageal reflux disease) History of cardioversion 05/08/19 DONE AT [facility] History of recent fall 07/2020, treated at [facility] Emergency Room. unsure why he fell, may have "passed out?". broken wrist-->casted, no surgical intervention. Hx of atrial flutter 2015 [facility] per medical record Hyperlipidemia Hypertension ICD (implantable cardioverter-defibrillator) in place IMPLANTED 05/30 [employer] (DR. BRYANT) On anticoagulant therapy Osteoarthritis Scoliosis Spinal stenosis Surgical History History of appendectomy History of arthroscopy RT SHOULDER History of back surgery LUMBAR SPINE History of cardiac cath SUMMER 2017 - [facility] - REASON? - NO STENTS/ANGIOPLASTY - DR. BRYANT History of cardioversion 2018 & 01/2020 ([facility]) History of carpal tunnel release BL History of cataract surgery RT/LEFT History of colonoscopy History of esophagogastroduodenoscopy (EGD) History of tooth extraction S/P cardiac pacemaker procedure ICD placed 2018 (Dr Bryant) S/P epidural steroid injection Lumbar Family History Mother FHx: breast cancer Grandmother (Paternal) FHx: stroke Grandmother (Paternal) FHx: myocardial infarction Father Kidney disease ESRD due to DM. 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 Feels Safe at Home: Yes Assistive Devices: None Allergies Allergies Allergy/AdvReac Type Severity Reaction Status Date / Time No Known Allergies Allergy Mild Verified 03/30/21 15:12 Home Meds Home Medications Medication Instructions Recorded Confirmed glucosamine-chondroitin 500 mg-400 2 tab PO QAM 09/17/18 03/30/21 mg tablet (Cidaflex) metoprolol succinate 25 mg 25 mg PO BID 05/05/19 03/30/21 tablet,extended release 24 hr (Toprol XL) methocarbamol 500 mg tablet 500 mg PO BID #90 tab 05/17/19 03/30/21 oxycodone 5 mg tablet (Roxicodone) 5 mg PO Q6H PRN 09/17/19 03/30/21 amiodarone 200 mg tablet 200 mg PO QAM 02/09/20 03/30/21 calcium carbonate 500 mg (1,250 1 tab PO DAILY 11/14/20 03/30/21 mg)-vitamin D3 200 unit tablet (Calcium 500 + D) gabapentin 400 mg capsule 400 mg PO BID 11/14/20 03/30/21 green tea extract 375 mg capsule 0 mg PO DAILY 11/14/20 03/30/21 omeprazole 20 mg capsule,delayed 20 mg PO BID 11/14/20 03/30/21 release patisiran (lipid complex) 2 mg/mL 0 mg IV .[id number] 11/14/20 03/30/21 intravenous solution insulin glargine 100 unit/mL (3 20 unit SC DAILY 03/01/21 03/30/21 mL) subcutaneous pen (Lantus Solostar U-100 Insulin) cetirizine 10 mg tablet 10 mg PO DAILY PRN 03/30/21 03/30/21 ergocalciferol (vitamin D2) 1,250 1,250 mcg PO MONTHLY 03/30/21 03/30/21 mcg (50,000 unit) capsule (Vitamin D2) Previous Rx's Medication Instructions Recorded apixaban 2.5 mg tablet (Eliquis) 2.5 mg PO Q12H #60 tab 02/09/20 pen needle,diabetic, disp unit 32 #100 ea 11/17/20 gauge x 5/32", remover and disposal unit potassium chloride 20 mEq 20 meq PO BID 30 Days #60 tab 03/14/21 tablet,extended release(part/cryst) (Klor-Con M) Results & Data (ED) Vital Signs Vital Signs - 24 hr 03/30/21 13:30 03/30/21 13:43 03/30/21 14:02 Temperature 36.8 C Temperature Source Oral Pulse Rate 86 85 79 Pulse Rate from SpO2 Sensor Respiratory Rate 19 20 21 Respiratory Effort / Characteristics Non-Labored Spontaneous Blood Pressure 97/71 L 97/71 L 107/73 Blood Pressure [Right Arm] Blood Pressure Mean 79 79 84 Blood Pressure Mean [Right Arm] Blood Pressure Position Lying Pulse Oximetry 95 95 Oxygen Delivery Method Room Air Sepsis New/Unexplained Change in Mental Status No Sepsis Action Taken by Nursing No Action Required 03/30/21 14:30 03/30/21 14:51 03/30/21 15:01 Temperature Temperature Source Pulse Rate 87 83 Pulse Rate from SpO2 Sensor Respiratory Rate 19 21 Respiratory Effort / Characteristics Blood Pressure 103/71 Blood Pressure [Right Arm] Blood Pressure Mean 81 Blood Pressure Mean [Right Arm] Blood Pressure Position Pulse Oximetry Oxygen Delivery Method Room Air Sepsis New/Unexplained Change in Mental Status Sepsis Action Taken by Nursing 03/30/21 15:51 03/30/21 16:00 03/30/21 16:31 Temperature Temperature Source Pulse Rate 80 82 84 Pulse Rate from SpO2 Sensor Respiratory Rate 17 12 20 Respiratory Effort / Characteristics Blood Pressure 111/89 Blood Pressure [Right Arm] Blood Pressure Mean 96 Blood Pressure Mean [Right Arm] Blood Pressure Position Pulse Oximetry Oxygen Delivery Method Sepsis New/Unexplained Change in Mental Status Sepsis Action Taken by Nursing 03/30/21 16:33 03/30/21 17:00 03/30/21 17:30 Temperature Temperature Source Pulse Rate 72 83 Pulse Rate from SpO2 Sensor Respiratory Rate 18 23 Respiratory Effort / Characteristics Blood Pressure 97/69 L 107/79 Blood Pressure [Right Arm] Blood Pressure Mean 78 88 Blood Pressure Mean [Right Arm] Blood Pressure Position Pulse Oximetry Oxygen Delivery Method Room Air Sepsis New/Unexplained Change in Mental Status Sepsis Action Taken by Nursing 03/30/21 18:01 03/30/21 18:30 03/30/21 19:00 Temperature Temperature Source Pulse Rate 76 76 77 Pulse Rate from SpO2 Sensor Respiratory Rate 23 17 17 Respiratory Effort / Characteristics Blood Pressure Blood Pressure [Right Arm] Blood Pressure Mean Blood Pressure Mean [Right Arm] Blood Pressure Position Pulse Oximetry Oxygen Delivery Method Sepsis New/Unexplained Change in Mental Status Sepsis Action Taken by Nursing 03/30/21 19:30 03/30/21 19:45 03/30/21 20:00 Temperature Temperature Source Pulse Rate 77 80 Pulse Rate from SpO2 Sensor 80 Respiratory Rate 17 18 Respiratory Effort / Characteristics Blood Pressure 79/60 L Blood Pressure [Right Arm] 88/58 L Blood Pressure Mean 66 Blood Pressure Mean [Right Arm] 68 Blood Pressure Position Pulse Oximetry 98 97 Oxygen Delivery Method Room Air Sepsis New/Unexplained Change in Mental Status Sepsis Action Taken by Nursing 03/30/21 20:30 03/30/21 21:00 03/30/21 21:30 Temperature Temperature Source Pulse Rate 84 74 79 Pulse Rate from SpO2 Sensor 84 83 84 Respiratory Rate 18 21 17 Respiratory Effort / Characteristics Blood Pressure 86/59 L 98/71 L 83/55 L Blood Pressure [Right Arm] Blood Pressure Mean 68 80 64 Blood Pressure Mean [Right Arm] Blood Pressure Position Pulse Oximetry 96 96 95 Oxygen Delivery Method Sepsis New/Unexplained Change in Mental Status Sepsis Action Taken by [facility] Medications Current Medication List: was personally reviewed by me Laboratory Data Attestation: I reviewed the patient's lab results. Result diagrams: 03/30/21 14:00 03/30/21 14:00 Lab Results 03/30/21 03/30/21 03/30/21 Range/Units 14:00 14:00 19:20 WBC 10.72 (4.8-10.8) K/uL RBC 5.75 (4.7-6.1) M/uL Hgb 16.1 (14.0-18.0) g/dL Hct 47.4 (42-52) % MCV 82.4 (80-100) fL MCH 28.0 (25-34) pg MCHC 34.0 (32-36) g/dL RDW Std Deviation 56.9 H (36.4-46.3) fL RDW Coeff of Daria 20.1 H (11.5-14.5) % Plt Count 183 (130-400) K/uL MPV 10.1 (7.4-10.4) fL Immature Gran % (Auto) 0.3 % Neut % (Auto) 86.5 % Lymph % (Auto) 7.9 % Bethel % (Auto) 5.3 % Eos % (Auto) 0.0 % Baso % (Auto) 0.0 % Neut # (Auto) 9.27 H (1.4-6.5) K/uL Lymph # (Auto) 0.85 L (1.2-3.4) K/uL Bethel # (Auto) 0.57 (0.11-0.59) K/uL Eos # (Auto) 0.00 (0-0.5) K/uL Baso # (Auto) 0.00 (0-0.2) K/uL Immature Gran # (Auto) 0.03 H (0.00-0.02) K/uL Anisocytosis Present Sodium 141 (136-145) mmol/L Potassium 5.7 H (3.5-5.1) mmol/L Chloride 105 (98-107) mmol/L Carbon Dioxide 26 (21-32) mmol/L Anion Gap 10.0 (3-11) BUN 87 H (7-18) mg/dl Creatinine 4.71 H* (0.6-1.4) mg/dl Est Cr Clr Drug Dosing Not Reportable Est GFR ( Amer) 12.6 ml/min Est GFR (Non-Af Amer) 10.9 ml/min BUN/Creatinine Ratio 18.5 (10-20) Glucose 195 H (70-99) mg/dl Calcium 9.1 (8.5-10.1) mg/dl Total Bilirubin 2.4 H (0.2-1) mg/dl AST 420 H (15-37) U/L ALT 297 H (12-78) U/L Alkaline Phosphatase 228 H (45-117) U/L Troponin I 0.251 H* (0-0.045) ng/ml Total Protein 7.1 (6.4-8.2) gm/dl Albumin 3.5 (3.4-5.0) gm/dl Globulin 3.6 (2.5-4.0) gm/dl Albumin/Globulin Ratio 1.0 (0.9-2) TSH 4.030 (0.300-4.500) uIu/ml Urine Color Urine Appearance (Clear) Urine pH (4.5-7.5) Ur Specific [place] (1.000-1.030) Urine Protein (Negative) Urine Glucose (UA) (Negative) Urine Ketones (Negative) Urine Blood (Negative) Urine Nitrite (Negative) Urine Bilirubin (Negative) Urine Urobilinogen (Negative) Ur Leukocyte Esterase (Negative) Urine WBC (Auto) (0-5) /hpf Urine RBC (Auto) (0-4) /hpf U Hyaline Cast (Auto) (0-5) /lpf U Epithel Cells (Auto) (0-5) /lpf Urine Bacteria (Auto) (Negative) COVID-19 Eval Order Covid19 at [facility] SARS-CoV-2 (PCR) (Negative) 03/30/21 03/30/21 Range/Units 19:20 Unknown WBC (4.8-10.8) K/uL RBC (4.7-6.1) M/uL Hgb (14.0-18.0) g/dL Hct (42-52) % MCV (80-100) fL MCH (25-34) pg MCHC (32-36) g/dL RDW Std Deviation (36.4-46.3) fL RDW Coeff of Daria (11.5-14.5) % Plt Count (130-400) K/uL MPV (7.4-10.4) fL Immature Gran % (Auto) % Neut % (Auto) % Lymph % (Auto) % Bethel % (Auto) % Eos % (Auto) % Baso % (Auto) % Neut # (Auto) (1.4-6.5) K/uL Lymph # (Auto) (1.2-3.4) K/uL Bethel # (Auto) (0.11-0.59) K/uL Eos # (Auto) (0-0.5) K/uL Baso # (Auto) (0-0.2) K/uL Immature Gran # (Auto) (0.00-0.02) K/uL Anisocytosis Sodium (136-145) mmol/L Potassium (3.5-5.1) mmol/L Chloride (98-107) mmol/L Carbon Dioxide (21-32) mmol/L Anion Gap (3-11) BUN (7-18) mg/dl Creatinine (0.6-1.4) mg/dl Est Cr Clr Drug Dosing Est GFR ( Amer) ml/min Est GFR (Non-Af Amer) ml/min BUN/Creatinine Ratio (10-20) Glucose (70-99) mg/dl Calcium (8.5-10.1) mg/dl Total Bilirubin (0.2-1) mg/dl AST (15-37) U/L ALT (12-78) U/L Alkaline Phosphatase (45-117) U/L Troponin I (0-0.045) ng/ml Total Protein (6.4-8.2) gm/dl Albumin (3.4-5.0) gm/dl Globulin (2.5-4.0) gm/dl Albumin/Globulin Ratio (0.9-2) TSH (0.300-4.500) uIu/ml Urine Color Yellow Urine Appearance Cloudy A (Clear) Urine pH 5.0 (4.5-7.5) Ur Specific [place] 1.010 (1.000-1.030) Urine Protein Negative (Negative) Urine Glucose (UA) Negative (Negative) Urine Ketones Negative (Negative) Urine Blood 3+ H (Negative) Urine Nitrite Negative (Negative) Urine Bilirubin Negative (Negative) Urine Urobilinogen Negative (Negative) Ur Leukocyte Esterase 3+ H (Negative) Urine WBC (Auto) >30 H (0-5) /hpf Urine RBC (Auto) 5-10 H (0-4) /hpf U Hyaline Cast (Auto) 10-30 H (0-5) /lpf U Epithel Cells (Auto) 0-5 (0-5) /lpf Urine Bacteria (Auto) 2+ H (Negative) COVID-19 Eval Order SARS-CoV-2 (PCR) NEGATIVE (Negative) Administered Medications Lidocaine (Lidocaine 5% 1 Patch) 1 patch TD DAILY@1800 ASHLEE Stop: 04/29/21 17:59 Last Admin: 03/30/21 18:08 Dose: Not Given Documented by: [id number] Discontinued Medications Dextrose (Dextrose 50% 50 Ml Syringe) 50 ml IV NOW STA Stop: 03/30/21 17:52 Last Admin: 03/30/21 18:35 Dose: 50 ml Documented by: [id number] Furosemide (Furosemide 40 Mg/4 Ml Vial) 60 mg IV NOW STA Stop: 03/30/21 18:28 Last Admin: 03/30/21 19:32 Dose: 60 mg Documented by: [id number] Furosemide (Furosemide 10 Mg/Ml 10 Ml Vial) Confirm Administered Dose 10 mg IV .STK-MED ONE Stop: 03/30/21 18:44 Last Admin: 03/30/21 19:32 Dose: Not Given Documented by: [id number] Sodium Chloride (Nss) 250 mls @ 999 mls/hr IV .Q16M ASHLEE Stop: 03/30/21 15:15 Last Infusion: 03/30/21 16:22 Dose: 0 mls/hr Documented by: [id number] Admin: 03/30/21 15:54 Dose: 999 mls/hr Documented by: [id number] Infusion: 03/30/21 15:50 Dose: 0 mls/hr Documented by: [id number] Admin: 03/30/21 14:56 Dose: 999 mls/hr Documented by: [id number] Calcium Gluconate 1,000 mg/ (Sodium Chloride) 60 mls @ 240 mls/hr IV NOW ONE Stop: 03/30/21 17:29 Last Infusion: 03/30/21 18:41 Dose: 0 mls/hr Documented by: [id number] Admin: 03/30/21 18:09 Dose: 240 mls/hr Documented by: [id number] Insulin Human Regular 10 units (/ Syringe) 9.9 mls @ 3 mls/sec IV ONE STA Stop: 03/30/21 17:52 Last Admin: 03/30/21 18:35 Dose: 3 mls/sec Documented by: [id number] Cosigned by: [id number] Imaging Data Radiologist's Impression: Cervical Spine CT 03/30/21 14:20 CT SCAN OF THE CERVICAL SPINE CLINICAL HISTORY: Fall. COMPARISON STUDY: CT of the cervical spine dated 07/21/2020. TECHNIQUE: CT scan of the cervical spine is performed from the skull base to the upper thoracic spine. Images are reviewed in the axial, sagittal, and coronal planes. IV contrast was not administered for this examination. A dose lowering technique was utilized adhering to the principles of ALARA. CT DOSE: 1052.40 mGy.cm FINDINGS: Skeletal structures: The skeletal structures are osteopenic. There is no evidence of fracture or subluxation involving the cervical spine. Vertebral body height and alignment are maintained. There is straightening of the cervical lordosis with reversal centered at C5. Anterior osteophytes are seen throughout. The odontoid process and lateral masses are intact. The atlantoaxial articu lation is preserved noting productive degenerative change. The spinous processes appear intact. There is mild multilevel cervical spondylosis. Uncovertebral and facet arthropathy are noted at several levels. Intervertebral discs: There is moderate disc space narrowing at C5-C6, C6-C7, and C7-T1. The remaining cervical disc spaces appear maintained. Central canal: Posterior disc osteophyte complexes are seen at all cervical levels between C3-C4 and C7-T1. This likely contributes to multilevel acquired compromise of the central canal. Soft tissues: The prevertebral and paraspinous soft tissues are within normal limits. There is atherosclerotic calcification of the carotid bulbs. Calvarium: The visualized calvarium at the skull base appears intact. Brain parenchyma: Partially visualized brain parenchyma at the skull base is within normal limits. Sinuses and mastoids: The visualized paranasal sinuses are clear. The mastoid air cells are well pneumatized. Cerumen fills the external auditory canals. Lung apices: There is a large right pleural effusion with associated atelectasis. Pacemaker leads are noted at the thoracic inlet on the left. IMPRESSION: 1. There is no evidence of fracture or subluxation involving the cervical spine. 2. Osteopenia and spondylotic change as above. 3. Large right pleural effusion. ACT 112: Negative or not required by law. Electronically signed by: Ry Johnson M.D. 03/30/2021 3:[address] 03/30/21 14:20 CT head/brain wo con CLINICAL HISTORY: 80 years-old Male with fall on eliquis. Acute head and neck injury status post fall TECHNIQUE: Multiple axial CT images of the head were obtained without contrast. A dose lowering technique was utilized adhering to the principles of ALARA. COMPARISON: CT cervical spine of same day, head CT 07/21/2020 FINDINGS: No acute intracranial hemorrhage, midline shift, intracranial mass, hydrocephalus, territorial ischemia or abnormal extra-axial collection. Age- related involutional changes. Senescent calcifications of the basal ganglia with cerebral vascular calcifications. Mildly motion degraded exam. The calvarium is intact. Subcutaneous edema of the upper midline neck pos teriorly. The paranasal sinuses, mastoid air cells, and middle ear cavities are clear. IMPRESSION: No acute intracranial abnormality or calvarial fracture. ACT 112: Negative or not required by law. The above report was generated using voice recognition software. It may contain grammatical, syntax or spelling errors. Electronically signed by: Quentin Phelps M.D. 03/30/2021 3:52 PM Chest X-Ray 03/30/21 14:33 XR chest 1V portable CLINICAL HISTORY: weakness COMPARISON STUDY: March 09, 2021 FINDINGS: No definite pneumothorax seen however evaluation is limited because bilateral lung apices are obscured by patient's chin.. No definite pleural effusion on the left is seen. Moderate right pleural effusion is worsening/redistributed since prior study. Opacities are seen at bilateral lower lungs which could represent atelectasis or infiltrates. Lung volumes are slightly decreased. Cardiac silhouette is moderate to large, stable since prior. No significant pulmonary vascular congestion.. Osseous structures: Minimal degenerative changes of the spine. Redemonstration of the left-sided dual-lead AICD with battery pack partially obscuring left lung parenchyma. IMPRESSION: 1. Mild interval worsening/redistribution of the right pleural effusion. 2. No definite pleural effusion on the left is seen. 3. Atelectasis or infiltrates at bilateral bases. 4. Limited exam due to low inspiratory effort and patient's chin obscuring bilateral lung apices. 5. The rest as above. ACT 112: Negative or not required by law. The above report was generated using voice recognition software. It may contain grammatical, syntax or spelling errors. Electronically signed by: Kayli Junior DO 03/30/2021 3:03 PM Abdomen/Pelvis CT 03/30/21 15:[address] WITHOUT CONTRAST CT DOSE: 289.84 mGy.cm HISTORY: kidney dysfunction, liver dysfunction TECHNIQUE: Multiaxial CT images of the abdomen and pelvis were performed without contrast. A dose lowering technique was utilized adhering to the principles of ALARA. COMPARISON STUDY: Abdomen and pelvis CT 03/01/2021. FINDINGS: Moderate right pleural effusion with compressive atelectasis within the base of the right lower lobe. This is similar to the prior study. The heart remains enlarged. Pacemaker wires are noted. A 5 mm groundglass nodular density within the left lower lobe on image 77. This is of doubtful clinical significance. No pneumoperitoneum. No pneumatosis. No fractures within the visualized osseous structures. There is a left-sided L3 pars defect. There is 1 cm of anterolisthesis of L3 on L4, unchanged. Severe disc space narrowing at L3- L4 and moderate disc space narrowing at L4-L5. There is a subacute mild superior endplate compression deformity at L1 which is new from the prior study. This demonstrates less than 10% loss of height. Posterior decompression from L4 through S1. Moderate body wall edema. 1.4 cm enhancing nodule within the distal right inguinal canal. This could represent a portion of the normal epididymis. The prostate gland is mildly enlarged. There is a mildly distended bladder. No bladder wall thickening. No pelvic free fluid. Moderate well-formed stool seen within the colon. No bowel wall thickening or obstruction. There are surgical clips at the cecal base suggesting a prior appendectomy. Mild diffuse mesenteric edema which is likely due to the patient's diffuse edematous state. Trace perihepatic ascites. The unenhanced spleen and pancreas unremarkable. Mild bilateral adrenal gland thickening which is likely chronic. The gallbladder is mildly distended. This remains unchanged. There is mild periportal edema. No retroperitoneal lymphadenopathy. Normal caliber abdominal aorta. There is a 2 cm cyst within the upper pole the left kidney. There is mild fullness within the bilateral renal collecting systems without marilyn hydronephrosis. This is likely due to the distended bladder. IMPRESSION: 1. Interval development of a subacute mild superior endplate compression fracture at L1. 2. Moderate body wall edema, mild mesenteric edema, mild periportal edema, and trace perihepatic ascites. This is likely secondary to the patient's diffuse edematous state. 3. Mild gallbladder wall distention, unchanged. No gallbladder wall thickening. 4. Moderate right pleural effusion, unchanged. 5. No definite bowel wall thickening or obstruction. 6. Mildly distended bladder with mild fullness within the bilateral renal collecting systems. This suggests chronic outlet obstruction from the enlarged prostate gland. Consider Vo catheterization for decompression. ACT 112: Negative or not required by law. Electronically signed by: Felix Hall M.D. 03/30/2021 4:09 PM Discharge Plan Visit Data Chief Complaint: Fall Stated Complaint: weakness ED Provider: [place] Patient Disposition: Admitted As Inpatient Prescriptions Prescriptions: No Action methocarbamol 500 mg tablet 500 mg PO BID Qty: 90 RF: 0 metoprolol succinate [Toprol XL] 25 mg Tablet Extended Release 24 Hr 25 mg PO BID RF: 0 amiodarone 200 mg Tablet 200 mg PO QAM RF: 0 Eliquis 2.5 mg tablet 2.5 mg PO Q12H Qty: 60 RF: 3 glucosamine-chondroitin [Cidaflex] 500-400 mg Tablet 2 tab PO QAM RF: 0 oxycodone [Roxicodone] 5 mg tablet 5 mg PO Q6H PRN (Reason: Pain) RF: 0 gabapentin 400 mg capsule 400 mg PO BID RF: 0 omeprazole 20 mg Capsule,Delayed Release(Dr/Ec) 20 mg PO BID RF: 0 green tea extract 375 mg Capsule 0 mg PO DAILY RF: 0 calcium carbonate-vitamin D3 [Calcium 500 + D] 500 mg(1,250mg) -200 unit Tablet 1 tab PO DAILY RF: 0 patisiran (lipid complex) 2 mg/mL Solution 0 mg IV .[id number] RF: 0 (DME) pen needle,diabetic, disp unit 32 gauge x 5/32" needle See Rx Instructions .ROUTE .MEDSUPPLY Qty: 100 RF: 0 Lantus Solostar U-100 Insulin 100 unit/mL (3 mL) insulin pen 20 unit SC DAILY RF: 0 potassium chloride [Klor-Con M20] 20 mEq Tablet,Er Particles/Crystals 20 meq PO BID 30 Days Qty: 60 RF: 0 cetirizine 10 mg Tablet 10 mg PO DAILY PRN (Reason: prn) RF: 0 ergocalciferol (vitamin D2) [Vitamin D2] 1,250 mcg (50,000 unit) capsule 1,250 mcg PO MONTHLY RF: 0
[2021-03-30 14:43] LABS: Hematocrit (blood only) 47.4 % (42-52); Hemoglobin 16.1 g/dL (14.0-18.0); Immature Granulocytes # (auto) 0.03 K/uL (0.00-0.02); Immature Granulocytes % (auto) 0.3 %; Lymphocytes # (auto) 0.85 K/uL (1.2-3.4); Lymphocytes % (auto) 7.9 %; Mean Corpuscular Volume 82.4 fL (80-100); Mean Platelet Volume 10.1 fL (7.4-10.4); Monocytes # (auto) 0.57 K/uL (0.11-0.59); Monocytes % (auto) 5.3 %; Neutrophils # (auto) 9.27 K/uL (1.4-6.5); Neutrophils % (auto) 86.5 %; Platelet Count 183 K/uL (130-400); RDW Coefficient of Variation 20.1 % (11.5-14.5); RDW Standard Deviation 56.9 fL (36.4-46.3); Red Blood Count 5.75 M/uL (4.7-6.1); White Blood Count 10.72 K/uL (4.8-10.8)
[2021-03-30] MEDS: SODIUM CHLORIDE 0.9% 250 ML IV SCH ×2 (14:56→15:54)
[2021-03-30 15:03] LABS: Alanine Aminotransferase 297 U/L (12-78); Albumin Level 3.5 gm/dl (3.4-5.0); Alkaline Phosphatase 228 U/L (45-117); Aspartate Aminotransferase 420 U/L (15-37); BUN Creatinine Ratio 18.5 (10-20); Bilirubin,Total 2.4 mg/dl (0.2-1); Blood Urea Nitrogen 87 mg/dl (7-18); Calcium 9.1 mg/dl (8.5-10.1); Carbon Dioxide 26 mmol/L (21-32); Chloride 105 mmol/L (98-107); Est GFR (African American) 12.6 ml/min; Est GFR (Non-African American) 10.9 ml/min; Globulin 3.6 gm/dl (2.5-4.0); Glucose 195 mg/dl (70-99); Potassium 5.7 mmol/L (3.5-5.1); Sodium 141 mmol/L (136-145); Total Protein 7.1 gm/dl (6.4-8.2); Troponin I 0.251 ng/ml (0-0.045)
--- NOTE | 2021-03-30 15:05 | XRay Report ---
XR chest 1V portable CLINICAL HISTORY: weakness COMPARISON STUDY: March 09, 2021 FINDINGS: No definite pneumothorax seen however evaluation is limited because bilateral lung apices are obscure d by patient's chin.. No definite pleural effusion on the left is seen. Moderate right pleural effusion is worsening/redist ributed since prior study. Opacities are seen at bilateral lower lungs which could represent atelectasis or infiltrates. Lung vo lumes are slightly decreased. Cardiac silhouette is moderate to large, stable since prior. No significant pulmonary vascular congestion.. Osseous structures: Minimal degenerative changes of the spine. Redemonstration of the left-sided dual-lead AICD with battery pack partially obscuring left lung pare nchyma. IMPRESSION: 1. Mild interval worsening/redistribution of the right pleural effusion. 2. No definite pleural effusion on the left is seen. 3. Atelectasis or infiltrates at bilateral bases. 4. Limited exam due to low inspiratory effort and patient's chin obscuring bilateral lung apices. 5. The rest as above. ACT 112: Negative or not required by law. The above report was generated using voice recognition software. It may contain grammatical, syntax o r spelling errors. Electronically signed by: Kayli Junior DO 03/30/2021 3:03 PM
--- NOTE | 2021-03-30 15:54 | CT Scan Report ---
CT head/brain wo con CLINICAL HISTORY: 80 years-old Male with fall on eliquis. Acute head and neck injury status post fal l TECHNIQUE: Multiple axial CT images of the head were obtained without contrast. A dose lowering tech nique was utilized adhering to the principles of ALARA. COMPARISON: CT cervical spine of same day, head CT 07/21/2020 FINDINGS: No acute intracranial hemorrhage, midline shift, intracranial mass, hydrocephalus, territorial ischem ia or abnormal extra-axial collection. Age-related involutional changes. Senescent calcifications of the basal ganglia with cerebral vascular calcifications. Mildly motion degraded exam. The calvarium is intact. Subcutaneous edema of the upper midline neck posteriorly. The paranasal sinu ses, mastoid air cells, and middle ear cavities are clear. IMPRESSION: No acute intracranial abnormality or calvarial fracture. ACT 112: Negative or not required by law. The above report was generated using voice recognition software. It may contain grammatical, syntax o r spelling errors. Electronically signed by: Quentin Phelps M.D. 03/30/2021 3:52 PM
--- NOTE | 2021-03-30 15:57 | CT Scan Report ---
CT SCAN OF THE CERVICAL SPINE CLINICAL HISTORY: Fall. COMPARISON STUDY: CT of the cervical spine dated 07/21/2020. TECHNIQUE: CT scan of the cervical spine is performed from the skull base to the upper thoracic spine . Images are reviewed in the axial, sagittal, and coronal planes. IV contrast was not administered fo r this examination. A dose lowering technique was utilized adhering to the principles of ALARA. CT DOSE: 1052.40 mGy.cm FINDINGS: Skeletal structures: The skeletal structures are osteopenic. There is no evidence of fracture or subl uxation involving the cervical spine. Vertebral body height and alignment are maintained. There is st raightening of the cervical lordosis with reversal centered at C5. Anterior osteophytes are seen thro ughout. The odontoid process and lateral masses are intact. The atlantoaxial articulation is preserve d noting productive degenerative change. The spinous processes appear intact. There is mild multileve l cervical spondylosis. Uncovertebral and facet arthropathy are noted at several levels. Intervertebral discs: There is moderate disc space narrowing at C5-C6, C6-C7, and C7-T1. The remainin g cervical disc spaces appear maintained. Central canal: Posterior disc osteophyte complexes are seen at all cervical levels between C3-C4 and C7-T1. This likely contributes to multilevel acquired compromise of the central canal. Soft tissues: The prevertebral and paraspinous soft tissues are within normal limits. There is athero sclerotic calcification of the carotid bulbs. Calvarium: The visualized calvarium at the skull base appears intact. Brain parenchyma: Partially visualized brain parenchyma at the skull base is within normal limits. Sinuses and mastoids: The visualized paranasal sinuses are clear. The mastoid air cells are well pneu matized. Cerumen fills the external auditory canals. Lung apices: There is a large right pleural effusion with associated atelectasis. Pacemaker leads are noted at the thoracic inlet on the left. IMPRESSION: 1. There is no evidence of fracture or subluxation involving the cervical spine. 2. Osteopenia and spondylotic change as above. 3. Large right pleural effusion. ACT 112: Negative or not required by law. Electronically signed by: Ry Johnson M.D. 03/30/2021 3:55 PM
--- NOTE | 2021-03-30 16:11 | CT Scan Report ---
ABDOMEN AND PELVIS CT WITHOUT CONTRAST CT DOSE: 289.84 mGy.cm HISTORY: kidney dysfunction, liver dysfunction TECHNIQUE: Multiaxial CT images of the abdomen and pelvis were performed without contrast. A dose lo wering technique was utilized adhering to the principles of ALARA. COMPARISON STUDY: Abdomen and pelvis CT 03/01/2021. FINDINGS: Moderate right pleural effusion with compressive atelectasis within the base of the right l ower lobe. This is similar to the prior study. The heart remains enlarged. Pacemaker wires are noted. A 5 mm groundglass nodular density within the left lower lobe on image 77. This is of doubtful clini marie significance. No pneumoperitoneum. No pneumatosis. No fractures within the visualized osseous str uctures. There is a left-sided L3 pars defect. There is 1 cm of anterolisthesis of L3 on L4, unchange d. Severe disc space narrowing at L3-L4 and moderate disc space narrowing at L4-L5. There is a subacu te mild superior endplate compression deformity at L1 which is new from the prior study. This demonst rates less than 10% loss of height. Posterior decompression from L4 through S1. Moderate body wall ed carlos. 1.4 cm enhancing nodule within the distal right inguinal canal. This could represent a portion o f the normal epididymis. The prostate gland is mildly enlarged. There is a mildly distended bladder. No bladder wall thickening. No pelvic free fluid. Moderate well-formed stool seen within the colon. N o bowel wall thickening or obstruction. There are surgical clips at the cecal base suggesting a prior appendectomy. Mild diffuse mesenteric edema which is likely due to the patient's diffuse edematous s worthy. Trace perihepatic ascites. The unenhanced spleen and pancreas unremarkable. Mild bilateral adre nal gland thickening which is likely chronic. The gallbladder is mildly distended. This remains uncha nged. There is mild periportal edema. No retroperitoneal lymphadenopathy. Normal caliber abdominal ao rta. There is a 2 cm cyst within the upper pole the left kidney. There is mild fullness within the bi lateral renal collecting systems without marilyn hydronephrosis. This is likely due to the distended bl adder. IMPRESSION: 1. Interval development of a subacute mild superior endplate compression fracture at L1. 2. Moderate body wall edema, mild mesenteric edema, mild periportal edema, and trace perihepatic asci darling. This is likely secondary to the patient's diffuse edematous state. 3. Mild gallbladder wall distention, unchanged. No gallbladder wall thickening. 4. Moderate right pleural effusion, unchanged. 5. No definite bowel wall thickening or obstruction. 6. Mildly distended bladder with mild fullness within the bilateral renal collecting systems. This le ggests chronic outlet obstruction from the enlarged prostate gland. Consider Vo catheterization fo r decompression. ACT 112: Negative or not required by law. Electronically signed by: Felix Hall M.D. 03/30/2021 4:09 PM
[2021-03-30 16:12] LABS: Anisocytosis Present
--- NOTE | 2021-03-30 17:04 | History & Physical Report ---
Date of Service March 30, 2021 Assessment & Plan (1) Volume overload: (2) Acute on chronic kidney failure: (3) Hyperkalemia: (4) Cardiac amyloidosis: (5) Chronic combined systolic and diastolic CHF (congestive heart failure): (6) Pleural effusion, right: (7) Diabetes mellitus, type II: (8) Paroxysmal atrial fibrillation: (9) Elevated troponin: Plan: This is an 80yo M with a complex medical history of systolic and diastolic CHF with EF <20%, amyloid cardiomyopathy, CKD III-IV, paroxysmal atrial fibrillation on eliquis, dual-chamber ICD, bicuspid aortic valve, mild aortic valve stenosis, HTN, DM type II, history of SVT, failed back surgery syndrome, narcolepsy and other medical problems listed below who presents after multiple falls at home in the past few days. Volume overload in setting of decompensated combined diastolic and systolic CHF, persistent moderate right pleural effusion, worsening renal function In setting of advanced combined CHF and amyloid cardiomyopathy with EF<20%, declining renal function and now with hepatic congestion TTE from 03/02/21 with EF <20%, severe LVH End Stage CHF 2/2 cardiac amyloidosis H/o Rt thoracentesis 03/10 - 1 L transudative fluid removed. CXR today with mild interval worsening/redistribution of the right pleural effusion Consulted nephrology for assistance with diuresis Still making urine - lovelace placed due to outlet obstruction as well as accurate I&Os Low sodium and renal diet, daily weights Acute on Chronic Renal Failure Recent baseline Cr ~ 2, Cr of 4.71 today Torsemide dose increased to 60mg BID on 03/24 Nephro consulted for assistance with diuresis Hyperkalemia K of 5.7 on admission Recently started on potassium supplements on previous admission - will hold Given calcium gluconate, d50 and insulin EKG without acute abnormalities Repeat BMP at 2000 Monitor on telemetry Transaminitis Tbili 2.4, AST 420, ALT 297, alk phos 228 Evidence of hepatic congestion on CT abd/pelvis in setting of advaced CHF, renal failure Will need aggressive diuresis - nephro consulted Repeat CMP, coags in AM Deconditioning PT/OT evaluations Would benefit from placement Fall precautions, CM consult, palliative consult Persistent Atrial fibrillation/flutter Rate controlled, on beta-teetee Eliquis for stroke prophylaxis Dose reduced to 2.5 mg BID for poor renal clearance Troponin elevation Troponin 0.251 initially in setting of CKD, appears to be chronically elevated No chest pain or acute EKG changes Will repeat trop with BMP this evening for completeness Amyloid cardiomyopathy Advanced stage causing severe restrictive cardiomyopathy with decompensated CHF, overall prognosis remains poor Hyperglycemia Last A1C of 6.2, on sliding scale inpatient with BSG AC HS DVT Ppx: Eliquis Code status: DNR/DNI PCP: Barbara Dispo: Admitted to PCU. Son Chinmay lives in [facility] and is involved in father's care. Phone # is . Patient seen in collaboration with Dr. Jenkins. Please see addendum. History of Present Illness Chief Complaint: Fall at home Primary Care Provider: Gerhard Jimenez MD This is an 80yo M with a complex medical history of systolic and diastolic CHF with EF <20%, amyloid cardiomyopathy, CKD III-IV, paroxysmal atrial fibrillation on eliquis, dual-chamber ICD, bicuspid aortic valve, mild aortic valve stenosis, HTN, DM type II, history of SVT, failed back surgery syndrome, narcolepsy and other medical problems listed below who presents after multiple falls at home in the past few days. Was recently admitted from 03/01-03/24 for decompensated heart failure, worsening renal function, abnormal LFTs, palliative consultation and other issues. Poor prognosis was discussed from cardiac standpoint with amyloid cardiomyopathy and EF <20%. Torsemide dose was increased to 40mg BID prior to discharge by nephrology. Also started on potassium supplementation. [id number] was done with insurance for placement in either rehab or SNF and was denied. Patient was discharged home with home health on 03/24. Followed up with Dr. Jama of nephro on 03/24 who discussed prognosis seeming to decline quickly. Increased Torsemide to 60mg BID at that time. Has had falls at home of the past few days, per OP notes. Ambulance was called when home nursing evaluated him and was found to be weak and hypotensive. Patient states his legs were weak earlier today and he was extremely tired and fell to the ground. Hit his head multiple times while attempting to get up. Experiencing constant back pain since the fall. Discussed goals of care and patient still desiring to be treated with IV diuretics. Confirmed code as DNR/DNI. Denies fever, chills, lightheadedness, chest pain, SOB, nausea, vomiting, dysuria, diarrhea or constipation. Still able to make urine. Son Chinmay lives in [facility] and is involved in father's care. Phone # is . Allergies Allergy/AdvReac Type Severity Reaction Status Date / Time No Known Allergies Allergy Mild Verified 03/30/21 15:12 Home Medications Medication Instructions Recorded Confirmed Type glucosamine-chondroitin 500 mg-400 2 tab PO QAM 09/17/18 03/30/21 History mg tablet (Cidaflex) metoprolol succinate 25 mg 25 mg PO BID 05/05/19 03/30/21 History tablet,extended release 24 hr (Toprol XL) methocarbamol 500 mg tablet 500 mg PO BID #90 tab 05/17/19 03/30/21 History oxycodone 5 mg tablet (Roxicodone) 5 mg PO Q6H PRN 09/17/19 03/30/21 History amiodarone 200 mg tablet 200 mg PO QAM 02/09/20 03/30/21 History apixaban 2.5 mg tablet (Eliquis) 2.5 mg PO Q12H #60 tab 02/09/20 03/30/21 Rx calcium carbonate 500 mg (1,250 1 tab PO DAILY 11/14/20 03/30/21 History mg)-vitamin D3 200 unit tablet (Calcium 500 + D) gabapentin 400 mg capsule 400 mg PO BID 11/14/20 03/30/21 History green tea extract 375 mg capsule 0 mg PO DAILY 11/14/20 03/30/21 History omeprazole 20 mg capsule,delayed 20 mg PO BID 11/14/20 03/30/21 History release patisiran (lipid complex) 2 mg/mL 0 mg IV .[id number] 11/14/20 03/30/21 History intravenous solution pen needle,diabetic, disp unit 32 #100 ea 11/17/20 03/01/21 Rx gauge x 32", remover and disposal unit insulin glargine 100 unit/mL (3 20 unit SC DAILY 03/01/21 03/30/21 History mL) subcutaneous pen (Lantus Solostar U-100 Insulin) potassium chloride 20 mEq 20 meq PO BID 30 Days #60 tab 03/14/21 03/30/21 Rx tablet,extended release(part/cryst) (Klor-Con M) cetirizine 10 mg tablet 10 mg PO DAILY PRN 03/30/21 03/30/21 History ergocalciferol (vitamin D2) 1,250 1,250 mcg PO MONTHLY 03/30/21 03/30/21 History mcg (50,000 unit) capsule (Vitamin D2) Past Med/Surg History Medical History Atrial fibrillation "A.Flutter" onset March 2019 BPH (benign prostatic hyperplasia) Cardiac amyloidosis Chronic back pain Chronic combined systolic and diastolic CHF (congestive heart failure) CKD (chronic kidney disease), stage III Seen in ED on 02/03 for acute dehydration/JOO. Baseline Cr noted to be around 2.0, was elevate at 2.7. Congestive heart failure Degenerative disc disease Diabetes mellitus, type II monitoring higher glucose lab testing, possibly related to medication changes in 2019. to have rechecked. following with PCP. Diverticular disease GERD (gastroesophageal reflux disease) History of cardioversion 05/08/19 DONE AT [facility] History of recent fall 07/2020, treated at [facility] Emergency Room. unsure why he fell, may have "passed out?". broken wrist-->casted, no surgical intervention. Hx of atrial flutter 2015 [facility] per medical record Hyperlipidemia Hypertension ICD (implantable cardioverter-defibrillator) in place IMPLANTED 05/30 [employer] (DR. BRYANT) On anticoagulant therapy Osteoarthritis Scoliosis Spinal stenosis Surgical History History of appendectomy History of arthroscopy RT SHOULDER History of back surgery LUMBAR SPINE History of cardiac cath SUMMER 2017 - [facility] - REASON? - NO STENTS/ANGIOPLASTY - DR. BRYANT History of cardioversion 2018 & 01/2020 ([facility]) History of carpal tunnel release BL History of cataract surgery RT/LEFT History of colonoscopy History of esophagogastroduodenoscopy (EGD) History of tooth extraction S/P cardiac pacemaker procedure ICD placed 2018 (Dr Bryant) S/P epidural steroid injection Lumbar Family History Mother FHx: breast cancer Grandmother (Paternal) FHx: stroke Grandmother (Paternal) FHx: myocardial infarction Father Kidney disease ESRD due to DM. 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 Physical Exam Physical Exam: Please see Dr. Jenkins's addendum for physical exam. Results & Data Results & Data ([facility]) Vital Signs (Past 12 Hours) Vital Signs Temp Pulse Resp BP Pulse Ox 03/30/21 16:31 84 20 111/89 03/30/21 16:00 82 12 03/30/21 15:51 80 17 03/30/21 15:01 83 21 03/30/21 14:30 87 19 103/71 03/30/21 14:02 79 21 107/73 95 03/30/21 13:43 36.8 C 85 20 97/71 L 95 03/30/21 13:30 86 19 97/71 L Laboratory Results Short CBC 03/30/21 03/30/21 Range/Units 14:00 14:00 WBC 10.72 (4.8-10.8) K/uL Hgb 16.1 (14.0-18.0) g/dL Hct 47.4 (42-52) % Plt Count 183 (130-400) K/uL Potassium 5.7 H (3.5-5.1) mmol/L BUN 87 H (7-18) mg/dl Creatinine 4.71 H* (0.6-1.4) mg/dl AST 420 H (15-37) U/L Troponin I 0.251 H* (0-0.045) ng/ml BMP 03/30/21 14:00 Sodium 141 Potassium 5.7 H Chloride 105 Carbon Dioxide 26 BUN 87 H Creatinine 4.71 H* Glucose 195 H Calcium 9.1 Cardiac Enzymes 03/30/21 Range/Units 14:00 Troponin I 0.251 H* (0-0.045) ng/ml Liver Function 03/30/21 Range/Units 14:00 Total Bilirubin 2.4 H (0.2-1) mg/dl AST 420 H (15-37) U/L ALT 297 H (12-78) U/L Alkaline Phosphatase 228 H (45-117) U/L Albumin 3.5 (3.4-5.0) gm/dl Diagnostic Findings Cervical Spine CT 03/30/21 14:20 CT SCAN OF THE CERVICAL SPINE CLINICAL HISTORY: Fall. COMPARISON STUDY: CT of the cervical spine dated 07/21/2020. TECHNIQUE: CT scan of the cervical spine is performed from the skull base to the upper thoracic spine. Images are reviewed in the axial, sagittal, and coronal planes. IV contrast was not administered for this examination. A dose lowering technique was utilized adhering to the principles of ALARA. CT DOSE: 1052.40 mGy.cm FINDINGS: Skeletal structures: The skeletal structures are osteopenic. There is no evidence of fracture or subluxation involving the cervical spine. Vertebral body height and alignment are maintained. There is straightening of the cervical lordosis with reversal centered at C5. Anterior osteophytes are seen throughout. The odontoid process and lateral masses are intact. The atlantoaxial articulation is preserved noting productive degenerative change. The spinous processes appear intact. There is mild multilevel cervical spondylosis. Uncovertebral and facet arthropathy are noted at several levels. Intervertebral discs: There is moderate disc space narrowing at C5-C6, C6-C7, and C7-T1. The remaining cervical disc spaces appear maintained. Central canal: Posterior disc osteophyte complexes are seen at all cervical levels between C3-C4 and C7-T1. This likely contributes to multilevel acquired compromise of the central canal. Soft tissues: The prevertebral and paraspinous soft tissues are within normal limits. There is atherosclerotic calcification of the carotid bulbs. Calvarium: The visualized calvarium at the skull base appears intact. Brain parenchyma: Partially visualized brain parenchyma at the skull base is within normal limits. Sinuses and mastoids: The visualized paranasal sinuses are clear. The mastoid air cells are well pneumatized. Cerumen fills the external auditory canals. Lung apices: There is a large right pleural effusion with associated atelectasis. Pacemaker leads are noted at the thoracic inlet on the left. IMPRESSION: 1. There is no evidence of fracture or subluxation involving the cervical spine. 2. Osteopenia and spondylotic change as above. 3. Large right pleural effusion. ACT 112: Negative or not required by law. Electronically signed by: Ry Johnson M.D. 03/30/2021 3:[address] 03/30/21 14:20 CT head/brain wo con CLINICAL HISTORY: 80 years-old Male with fall on eliquis. Acute head and neck injury status post fall TECHNIQUE: Multiple axial CT images of the head were obtained without contrast. A dose lowering technique was utilized adhering to the principles of ALARA. COMPARISON: CT cervical spine of same day, head CT 07/21/2020 FINDINGS: No acute intracranial hemorrhage, midline shift, intracranial mass, hydrocephalus, territorial ischemia or abnormal extra-axial collection. Age- related involutional changes. Senescent calcifications of the basal ganglia with cerebral vascular calcifications. Mildly motion degraded exam. The calvarium is intact. Subcutaneous edema of the upper midline neck posteriorly. The paranasal sinuses, mastoid air cells, and middle ear cavities are clear. IMPRESSION: No acute intracranial abnormality or calvarial fracture. ACT 112: Negative or not required by law. The above report was generated using voice recognition software. It may contain grammatical, syntax or spelling errors. Electronically signed by: Quentin Phelps M.D. 03/30/2021 3:52 PM Chest X-Ray 03/30/21 14:33 XR chest 1V portable CLINICAL HISTORY: weakness COMPARISON STUDY: March 09, 2021 FINDINGS: No definite pneumothorax seen however evaluation is limited because bilateral lung apices are obscured by patient's chin.. No definite pleural effusion on the left is seen. Moderate right pleural effusion is worsening/redistributed since prior study. Opacities are seen at bilateral lower lungs which could represent atelectasis or infiltrates. Lung volumes are slightly decreased. Cardiac silhouette is moderate to large, stable since prior. No significant pulmonary vascular congestion.. Osseous structures: Minimal degenerative changes of the spine. Redemonstration of the left-sided dual-lead AICD with battery pack partially obscuring left lung parenchyma. IMPRESSION: 1. Mild interval worsening/redistribution of the right pleural effusion. 2. No definite pleural effusion on the left is seen. 3. Atelectasis or infiltrates at bilateral bases. 4. Limited exam due to low inspiratory effort and patient's chin obscuring bilateral lung apices. 5. The rest as above. ACT 112: Negative or not required by law. The above report was generated using voice recognition software. It may contain grammatical, syntax or spelling errors. Electronically signed by: Kayli Junior DO 03/30/2021 3:03 PM Abdomen/Pelvis CT 03/30/21 15:[address] WITHOUT CONTRAST CT DOSE: 289.84 mGy.cm HISTORY: kidney dysfunction, liver dysfunction TECHNIQUE: Multiaxial CT images of the abdomen and pelvis were performed without contrast. A dose lowering technique was utilized adhering to the principles of ALARA. COMPARISON STUDY: Abdomen and pelvis CT 03/01/2021. FINDINGS: Moderate right pleural effusion with compressive atelectasis within the base of the right lower lobe. This is similar to the prior study. The heart remains enlarged. Pacemaker wires are noted. A 5 mm groundglass nodular density within the left lower lobe on image 77. This is of doubtful clinical significance. No pneumoperitoneum. No pneumatosis. No fractures within the visualized osseous structures. There is a left-sided L3 pars defect. There is 1 cm of anterolisthesis of L3 on L4, unchanged. Severe disc space narrowing at L3- L4 and moderate disc space narrowing at L4-L5. There is a subacute mild superior endplate compression deformity at L1 which is new from the prior study. This demonstrates less than 10% loss of height. Posterior decompression from L4 through S1. Moderate body wall edema. 1.4 cm enhancing nodule within the distal right inguinal canal. This could represent a portion of the normal epididymis. The prostate gland is mildly enlarged. There is a mildly distended bladder. No bladder wall thickening. No pelvic free fluid. Moderate well-formed stool seen within the colon. No bowel wall thickening or obstruction. There are surgical clips at the cecal base suggesting a prior appendectomy. Mild diffuse mesenteric edema which is likely due to the patient's diffuse edematous state. Trace perihepatic ascites. The unenhanced spleen and pancreas unremarkable. Mild bilateral adrenal gland thickening which is likely chronic. The gallbladder is mildly distended. This remains unchanged. There is mild periportal edema. No retroperitoneal lymphadenopathy. Normal caliber abdominal aorta. There is a 2 cm cyst within the upper pole the left kidney. There is mild fullness within the bilateral renal collecting systems without marilyn hydronephrosis. This is likely due to the distended bladder. IMPRESSION: 1. Interval development of a subacute mild superior endplate compression fracture at L1. 2. Moderate body wall edema, mild mesenteric edema, mild periportal edema, and trace perihepatic ascites. This is likely secondary to the patient's diffuse ed ematous state. 3. Mild gallbladder wall distention, unchanged. No gallbladder wall thickening. 4. Moderate right pleural effusion, unchanged. 5. No definite bowel wall thickening or obstruction. 6. Mildly distended bladder with mild fullness within the bilateral renal collecting systems. This suggests chronic outlet obstruction from the enlarged prostate gland. Consider Lovelace catheterization for decompression. ACT 112: Negative or not required by law. Electronically signed by: Felix Hall M.D. 03/30/2021 4:09 PM ECG Additional Comments: A flutter with variable block Code Status & VTE Plan VTE Prophylaxis Plan VTE Prophylaxis will be ordered: Yes Supervising Physician Co-Signing Physician Notes Patient is a 89-year-old male with very complex medical history, systolic and diastolic CHF, alkaline cardiomyopathy, CKD, diabetes mellitus, paroxysmal atrial fibrillation and other medical problems presents with history of generalized weakness, multiple falls for the last few days. Patient is a poor historian. Patient was recently admitted at [facility] for management of CHF, worsening renal function and was evaluated by multiple subspecialists and was thought to have very poor prognosis. Patient currently denies any chest pain, dyspnea, dizziness, nausea, abdominal pain, diarrhea, dysuria, hematuria. Patient felt like weakness with ambulation this morning which resulted in a fall and bumping his head while trying to get up from the floor. He was evaluated by home nursing today and was found to be hypotensive and so was sent to ED for further evaluation. Please review HPI for complete details of presentation. Blood work suggestive of JOO with creatinine elevated at 4.7, hyperkalemia 5.7, chronic troponin elevation. Imaging studies suggestive of chronic right pleural effusion, volume overload, acute L1 fracture. Patient prefers to be DNI DNR but would want treatment to be continued. Physical Exam: Vitals signs as noted above General Appearance: Elderly, chronic ill appearing, no apparent distress Head: normocephalic, Atraumatic Eyes: normal inspection, EOMI Neck: supple, Trachea midline Respiratory/Chest: Decrease breath sounds at bases, No accessory muscle use, +Pacer Cardiovascular: S1, S2, +murmur Abdomen/GI:Soft, Non tender, +distended, Bowel sounds present Extremities/Musculoskeletal:normal inspection, 3+ B/L LE edema Neurologic/Psych:AAOX3, grossly no focal neurological deficits Skin: normal color, warm Volume overload Multifactorial secondary to CHF decompensation, JOO Suspected Cardiorenal Syndrome Continue IV Lasix I's and O's, daily weight Appreciate nephrology input Poor prognosis Palliative care consulted to address goals of care. Hyperkalemia Secondary to JOO Hold potassium supplements Received calcium gluconate while in ED Continue IV Lasix Monitor potassium levels Low potassium diet Abnormal UA Likely UTI Empirically started on Rocephin. Subacute L1 compression fracture Likely secondary to falls Pain control PT OT I personally reviewed the record. Patient is interviewed and examined at bedside. Patient's care is coordinated with Nathalie Preston PA-C. Please refer to the documentation above for details of patient's presentation and for discussion of other issues.
[2021-03-30] MEDS ORDERED: CALCIUM GLUCONATE 10% 1,000 MG in SODIUM CHLORIDE 0.9% 50 ML IV ONE (17:15)
[2021-03-30 17:51] LABS: Appearance Urine Cloudy (Clear); Bacteria Urine Automated 2+ (Negative); Bilirubin Urine Negative (Negative); Blood Urine 3+ (Negative); Color Urine Yellow; Epithelial Cell Urine Auto 0-5 /lpf (0-5); Glucose Urine UA Negative (Negative); Ketones Urine Negative (Negative); Leukocyte Esterase Urine 3+ (Negative); Nitrite Urine Negative (Negative); Protein Urine Negative (Negative); Urobilinogen Urine Negative (Negative); WBC Urine Automated >30 /hpf (0-5)
[2021-03-30] MEDS ORDERED: DEXTROSE 50% 50 ML SYRINGE IV STA (17:51)
[2021-03-30] MEDS ORDERED: INSULIN HUMAN REGULAR PER UNIT 10 UNITS in SYRINGE 9.9 ML IV STA (17:51)
[2021-03-30] MEDS: LIDOCAINE 5% 1 PATCH TD SCH (18:08)
[2021-03-30] MEDS ORDERED: FUROSEMIDE 40 MG/4 ML VIAL IV STA (18:27)
[2021-03-30] MEDS ORDERED: CETIRIZINE HCL 10 MG TABLET PO PRN (18:33)
[2021-03-30] MEDS ORDERED: FUROSEMIDE 10 MG/ML 10 ML VIAL IV ONE (18:43)
[2021-03-30] MEDS ORDERED: DEXTROSE 50% 50 ML SYRINGE IV PRN (22:22)
[2021-03-30] MEDS ORDERED: GLUCOSE 40% GEL 15 GM TUBE PO PRN (22:22)
[2021-03-30] MEDS ORDERED: GLUCAGON FOR INJ 1 MG VIAL SQ PRN (22:22)
[2021-03-30] MEDS ORDERED: CARBOHYDRATES FOR HYPOGLYCEMIA PO PRN (22:22)
[2021-03-30] MEDS ORDERED: GLUCOSE 10 TABS/TUBE PO PRN (22:22)
[2021-03-30] MEDS: APIXABAN 2.5 MG TAB PO SCH (23:09)
[2021-03-30] MEDS: GABAPENTIN 400 MG CAP PO SCH (23:11)
[2021-03-30] MEDS: METHOCARBAMOL 500 MG TABLET PO SCH (23:12)
[2021-03-30] MEDS: cefTRIAXone SODIUM 1,000 MG in DEXTROSE 5% 50 ML IV SCH (23:13)
[2021-03-30] MEDS: INSULIN ASPART 100 UNITS/ML 3 ML PEN SC SCH (23:14)
[2021-03-30] MEDS: METOPROLOL SUCC 25MG EXT REL TAB PO SCH (23:18)
[2021-03-30 23:37] LABS: BUN Creatinine Ratio 21.3 (10-20); Calcium 9.4 mg/dl (8.5-10.1); Creatinine Clr Calc Pharmacy 14.9 ml/min; Potassium 4.5 mmol/L (3.5-5.1); Troponin I 0.21 ng/ml (0-0.045)
--- NOTE | 2021-03-31 06:06 | Electrocardiogram Report ---
Test Reason : Blood Pressure : / mmHG Vent. Rate : 088 BPM Atrial Rate : 208 BPM P-R Int : 000 ms QRS Dur : 182 ms QT Int : 464 ms P-R-T Axes : 000 -67 106 degrees QTc Int : 561 ms Possible Atrial flutter with variable A-V block Left axis deviation Left bundle branch block Abnormal ECG When compared with ECG of 03-MAR-2021 00:40, QRS duration has increased Confirmed by Denny Horvath ([id number]) on 03/31/2021 6:06:00 AM Referred By: REFERRED SELF Confirmed By:Denny Horvath
[2021-03-31 07:53] LABS: INR 1.9 (0.9-1.1); Partial Thromboplastin Ratio 1.3; Partial Thromboplastin Time 34.4 Seconds (21.0-31.0); Prothrombin Time 18.2 Seconds (9.0-12.0)
[2021-03-31 08:01] LABS: Hematocrit (blood only) 43.3 % (42-52); Hemoglobin 14.7 g/dL (14.0-18.0); Mean Corpuscular Hemoglobin 27.5 pg (25-34); Mean Corpuscular Hgb Conc 33.9 g/dL (32-36); Mean Corpuscular Volume 81.1 fL (80-100); Mean Platelet Volume 10.1 fL (7.4-10.4); Platelet Count 155 K/uL (130-400); RDW Coefficient of Variation 19.9 % (11.5-14.5); RDW Standard Deviation 55.7 fL (36.4-46.3); Red Blood Count 5.34 M/uL (4.7-6.1); White Blood Count 9.54 K/uL (4.8-10.8)
[2021-03-31 08:25] LABS: Albumin Level 2.9 gm/dl (3.4-5.0); BUN Creatinine Ratio 21.1 (10-20); Bilirubin,Total 2.4 mg/dl (0.2-1); Calcium 8.9 mg/dl (8.5-10.1); Creatinine Clr Calc Pharmacy 16.6 ml/min; Est GFR (Non-African American) 14.7 ml/min; Globulin 2.9 gm/dl (2.5-4.0); Total Protein 5.8 gm/dl (6.4-8.2)
[2021-03-31] MEDS: FUROSEMIDE 60 MG in SYRINGE 0 ML IV SCH ×2 (08:31→20:16)
[2021-03-31] MEDS: INSULIN ASPART 100 UNITS/ML 3 ML PEN SC SCH ×4 (08:32→20:29)
[2021-03-31] MEDS: METOPROLOL SUCC 25MG EXT REL TAB PO SCH ×2 (08:32→20:22)
[2021-03-31] MEDS: GLUCOSAMINE SULFATE 500 MG CAP PO SCH (08:33)
[2021-03-31] MEDS: CALCIUM 600MG + VIT D 400 IU TAB PO SCH (08:33)
[2021-03-31] MEDS: GABAPENTIN 400 MG CAP PO SCH ×2 (08:33→20:28)
[2021-03-31] MEDS: AMIODARONE 200 MG TAB PO SCH (08:33)
[2021-03-31] MEDS: PANTOprazole 40 MG TAB PO SCH ×2 (08:33→20:28)
[2021-03-31] MEDS: APIXABAN 2.5 MG TAB PO SCH ×2 (08:33→20:28)
[2021-03-31] MEDS: METHOCARBAMOL 500 MG TABLET PO SCH ×2 (08:33→20:24)
[2021-03-31] MEDS ORDERED: FUROSEMIDE 40 MG/4 ML VIAL IV SCH (09:00)
[2021-03-31 09:14] LABS: Potassium 4.8 mmol/L (3.5-5.1)
--- NOTE | 2021-03-31 11:38 | Cardiology Consultation ---
Date of Consultation March 31, 2021 Assessment & Plan (1) Chronic combined systolic and diastolic CHF (congestive heart failure): (2) Atrial flutter: (3) Hyperkalemia: (4) Acute on chronic kidney failure: Potassium improved from 5.7 to 4.8. Likely with congestive hepatopathy INR up to 1.9. Continue Eliquis with caution, 2.5 mg BID, given JOO/ CKD and elevated INR. Poor candidate for coumadin as anticipate INR management would be prohibitively difficult. Continue furosemide 60 mg IV BID, Vo catheter. Patient once again inquired about an exercise program. I had a marilyn coversation with him that I believe his cardiomyopathy has progressed to the point that even his activities of daily living are likely going to be difficult. As discussed last admission, I believe he has reached endstage disease. History of Present Illness Attending Physician: Joshua Grier MD History of Present Illness Mr Givens is an 80 year old male seen in cardiology consultation per the request of Nathalie Preston PA-C for the evaluation of acute on chronic systolic heart failure due to TTR amyloid cardiomyopathy. The patient is well known to the undersigned as I have followed him for years on an inpatient and outpatient basis. He recently had an extended hospital stay dating from 03/01/2021 until 03/14/2021. During that hospital stay he was treated with IV diuretics, and underwent right-sided thoracentesis on 03/10/2021 yielding 1 liter of transudative fluid. Over the last few months, his volume status has been difficult to manage as it has been complicated by symptoms of orthostatic hypotension and worsening renal insufficiency with recent creatinine levels ranging for the most part in the 2- 3.2 range. He presented yesterday with worsening symptoms of orthostatic hypertension, worsening lower extremity edema, and his creatinine had trended up to 4.07, improved to 3.67 having received IV diuretic therapy overnight. An Ongoing chronic mild, flat, troponin I elevation is noted without symptoms suggestive angina. During my assessment, patient was feeling somewhat improved. Still has 2+ lower extremity edema. 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 He has a history of severe concentric left ventricular hypertrophy and severe left ventricular systolic dysfunction, LVEF<20% , echo 02/2021. -Dual-chamber ICD. -Paroxysmal atrial flutter requiring past cardioversion. He was in sinus rhythm at the time of his admission in November, , however, he has reverted to a rate controlled atrial flutter February, and again , March,. Allergies Allergy/AdvReac Type Severity Reaction Status Date / Time No Known Allergies Allergy Mild Verified 03/30/21 15:12 Home Medications Medication Instructions Recorded Confirmed Type glucosamine-chondroitin 500 mg-400 2 tab PO QAM 09/17/18 03/30/21 History mg tablet (Cidaflex) metoprolol succinate 25 mg 25 mg PO BID 05/05/19 03/30/21 History tablet,extended release 24 hr (Toprol XL) methocarbamol 500 mg tablet 500 mg PO BID #90 tab 05/17/19 03/30/21 History oxycodone 5 mg tablet (Roxicodone) 5 mg PO Q6H PRN 09/17/19 03/30/21 History amiodarone 200 mg tablet 200 mg PO QAM 02/09/20 03/30/21 History apixaban 2.5 mg tablet (Eliquis) 2.5 mg PO Q12H #60 tab 02/09/20 03/30/21 Rx calcium carbonate 500 mg (1,250 1 tab PO DAILY 11/14/20 03/30/21 History mg)-vitamin D3 200 unit tablet (Calcium 500 + D) gabapentin 400 mg capsule 400 mg PO BID 11/14/20 03/30/21 History green tea extract 375 mg capsule 0 mg PO DAILY 11/14/20 03/30/21 History omeprazole 20 mg capsule,delayed 20 mg PO BID 11/14/20 03/30/21 History release patisiran (lipid complex) 2 mg/mL 0 mg IV .[id number] 11/14/20 03/30/21 History intravenous solution pen needle,diabetic, disp unit 32 #100 ea 11/17/20 03/01/21 Rx gauge x 32", remover and disposal unit insulin glargine 100 unit/mL (3 20 unit SC DAILY 03/01/21 03/30/21 History mL) subcutaneous pen (Lantus Solostar U-100 Insulin) potassium chloride 20 mEq 20 meq PO BID 30 Days #60 tab 03/14/21 03/30/21 Rx tablet,extended release(part/cryst) (Klor-Con M) cetirizine 10 mg tablet 10 mg PO DAILY PRN 03/30/21 03/30/21 History ergocalciferol (vitamin D2) 1,250 1,250 mcg PO MONTHLY 03/30/21 03/30/21 History mcg (50,000 unit) capsule (Vitamin D2) Patient History Medical History Atrial fibrillation "A.Flutter" onset March 2019 BPH (benign prostatic hyperplasia) Cardiac amyloidosis Chronic back pain Chronic combined systolic and diastolic CHF (congestive heart failure) CKD (chronic kidney disease), stage III Seen in ED on 02/03 for acute dehydration/JOO. Baseline Cr noted to be around 2.0, was elevate at 2.7. Congestive heart failure Degenerative disc disease Diabetes mellitus, type II monitoring higher glucose lab testing, possibly related to medication changes in 2019. to have rechecked. following with PCP. Diverticular disease GERD (gastroesophageal reflux disease) History of cardioversion 05/08/19 DONE AT [facility] History of recent fall 07/2020, treated at [facility] Emergency Room. unsure why he fell, may have "passed out?". broken wrist-->casted, no surgical intervention. Hx of atrial flutter 2015 [facility] per medical record Hyperlipidemia Hypertension ICD (implantable cardioverter-defibrillator) in place IMPLANTED 05/30 [employer] (DR. BRYANT) On anticoagulant therapy Osteoarthritis Scoliosis Spinal stenosis Surgical History History of appendectomy History of arthroscopy RT SHOULDER History of back surgery LUMBAR SPINE History of cardiac cath SUMMER 2017 - [facility] - REASON? - NO STENTS/ANGIOPLASTY - DR. BRYANT History of cardioversion 2018 & 01/2020 ([facility]) History of carpal tunnel release BL History of cataract surgery RT/LEFT History of colonoscopy History of esophagogastroduodenoscopy (EGD) History of tooth extraction S/P cardiac pacemaker procedure ICD placed 2018 (Dr Bryant) S/P epidural steroid injection Lumbar Family History Mother FHx: breast cancer Grandmother (Paternal) FHx: stroke Grandmother (Paternal) FHx: myocardial infarction Father Kidney disease ESRD due to DM. 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 How many Children do You have: 1 Feels Safe at Home: Yes Assistive Devices: None Review of Systems Review of Systems: All systems reviewed & are unremarkable except as noted in HPI & below Physical Exam Physical Exam: Temp Pulse Resp BP Pulse Ox 36.6 C 73 17 104/69 93 03/31/21 08:07 03/31/21 08:07 03/31/21 08:07 03/31/21 08:15 03/31/21 08:07 Constitutional: Chronically ill in appearance Respiratory: Auscultation: + diminished lung sounds ( decreased breath sounds bilaterally at the bases, worse on the right side,) Cardiovascular: Rate/Rhythm: regular rate Heart Sounds: + murmur ( 1/6 systolic murmur) Extremities: + edema (2+ bilateral LE edema) Gastrointestinal (Abdomen): mildly distended, nontender Genitourinary: Vo catheter in place draining clear yellow urine Results & Data ([facility]) Vital Signs (Past 12 Hours) Vital Signs Temp Pulse Resp BP Pulse Ox 03/31/21 08:15 104/69 03/31/21 08:07 36.6 C 73 17 97/69 L 93 03/31/21 03:09 36.4 C L 76 20 102/64 95 Diagnostic Findings CXR and CT abd/pelpis: ongoing moderate right pleural effusion bowel wall edema
--- NOTE | 2021-03-31 13:32 | Electrocardiogram Report ---
Test Reason : Blood Pressure : / mmHG Vent. Rate : 077 BPM Atrial Rate : 250 BPM P-R Int : 000 ms QRS Dur : 160 ms QT Int : 468 ms P-R-T Axes : 000 -58 119 degrees QTc Int : 529 ms Atrial flutter with variable A-V block Left axis deviation Left bundle branch block Abnormal ECG When compared with ECG of 30-MAR-2021 13:29, No significant change was found Confirmed by Lobito Smith ([id number]) on 03/31/2021 1:32:41 PM Referred By: REFERRED SELF Confirmed By:Lobito Smith
--- NOTE | 2021-03-31 13:34 | Hospitalist Progress Note ---
Date of Service March 31, 2021 Assessment & Plan (1) Volume overload: (2) Acute on chronic kidney failure: (3) Hyperkalemia: (4) Cardiac amyloidosis: (5) Chronic combined systolic and diastolic CHF (congestive heart failure): (6) Pleural effusion, right: (7) Diabetes mellitus, type II: (8) Paroxysmal atrial fibrillation: (9) Elevated troponin: Plan: This is an 80yo M with a complex medical history of systolic and diastolic CHF with EF <20%, amyloid cardiomyopathy, CKD III-IV, paroxysmal atrial fibrillation on eliquis, dual-chamber ICD, bicuspid aortic valve, mild aortic valve stenosis, HTN, DM type II, history of SVT, failed back surgery syndrome, narcolepsy and other medical problems listed below who presents after multiple falls at home in the past few days. Volume overload in setting of decompensated combined diastolic and systolic CHF, persistent moderate right pleural effusion, worsening renal function In setting of advanced combined CHF and amyloid cardiomyopathy with EF<20%, declining renal function and now with hepatic congestion TTE from 03/02/21 with EF <20%, severe LVH End Stage CHF 2/2 cardiac amyloidosis H/o Rt thoracentesis 03/10 - 1 L transudative fluid removed. CXR today with mild interval worsening/redistribution of the right pleural effusion -- Lasix 40mg IV bid Nephro and Cardiology SVC consulted Acute on Chronic Renal Failure Recent baseline Cr ~ 2, Cr of 4.71on admission Torsemide dose increased to 60mg BID on 03/24 -- crea 3.6 -- monitor while on Lasix Hyperkalemia K of 5.7 on admission Recently started on potassium supplements on previous admission - will hold Given calcium gluconate, d50 and insulin EKG without acute abnormalities -- K 4.8 Transaminitis Congestive Hepatopathy Tbili 2.4, AST 420, ALT 297, alk phos 228 INR 1.9 Evidence of hepatic congestion on CT abd/pelvis in setting of advanced CHF, renal failure -- monitor Deconditioning PT/OT evaluation Would benefit from placement Fall precautions, CM consult, palliative consult Persistent Atrial fibrillation/flutter Rate controlled, on beta-teetee Eliquis for stroke prophylaxis Dose reduced to 2.5 mg BID for poor renal clearance Troponin elevation Troponin 0.251 initially in setting of CKD, appears to be chronically elevated No chest pain or acute EKG changes Amyloid cardiomyopathy Advanced stage causing severe restrictive cardiomyopathy with decompensated CHF, overall prognosis remains poor Hyperglycemia Last A1C of 6.2, on sliding scale inpatient with BSG AC HS DVT Ppx: Eliquis Code status: DNR/DNI PCP: Barbara Dispo: Admitted to PCU. Son Chinmay lives in [facility] and is involved in father's care. Phone # is . Admission and Anticipated Discharge Date Admission Date: March 30, 2021 Subjective ff up for CHF exacerbation, acute renal failure, etc seen resting in bed, comfortable not in distress states he feels ok overall denies chest pain, dyspnea, palpitations no leg pain no other symptoms Review of Systems Review of Systems: General- oriented x 3, not in distress, speaks in sentences with no effort or accessory muscle use Head- atraumatic Eyes- PERRL, EOMI, anicteric ENT- oropharynx clear Neck- supple, no JVD, no adenopathy, no thyromegaly; carotids +2/2, no bruits appreciated Lungs- decreased breath sounds on the right lower lobe clear on the left no wheezing Heart- normal rate, regular rhythm;grade 1 murmur, no gallop, no rub appreciated Abdomen- normal bowel sounds, nondistended, soft, nontender, no masses or hepatosplenomegaly Extremities- grade 1 lower leg edema, no calf tenderness, no eryt edi/warmth/tenderness; peripheral pulses intact Neuro- alert, oriented x 3; CN 2-12 grossly intact; motor 5/5 bilaterally;sensation 100% on all extremities; no other gross focal neurologic deficits Skin- warm & dry Results & Data Results & Data ([facility]) Vital Signs (Past 12 Hours) Vital Signs Temp Pulse Resp BP Pulse Ox 03/31/21 11:45 36.7 C 103 H 17 99/53 L 96 03/31/21 08:15 104/69 03/31/21 08:07 36.6 C 73 17 97/69 L 93 03/31/21 03:09 36.4 C L 76 20 102/64 95 all noted and reviewed including below
[2021-03-31] MEDS: oxyCODONE HCL IR 5 MG TAB (IMMEDIATE RELEASE) PO PRN ×2 (14:25→20:33)
--- NOTE | 2021-03-31 15:14 | Nephrology Consultation ---
Date of Consultation March 31, 2021 Assessment & Plan (1) Acute on chronic kidney failure: Improving nonoliguric acute kidney injury stage I on now stage IV chronic kidney disease in the setting of end-stage cardiac amyloidosis. High risk for CKD progression. Hyperkalemia from admission improved quickly with medical management. Continue dialysis diet Continue Lasix 60 mg IV every 12 hours No indication for urgent dialysis; given end-stage cardiac disease, poor candidate in any event Low threshold to halve gabapentin dose while in acute renal failure Follow-up pending urine culture (2) Volume overload: -continue diuresis as above Added 1.5 L fluid restriction to low-sodium diet Needs daily standing weight and strict intake and output to continue History of Present Illness Reason for Consultation: JOO, hyperkalemia Requesting Physician: Dr Grier Attending Physician: Joshua Grier MD History of Present Illness 80-year-old -[place] Citizen male whom I am asked to evaluate for acute on chronic renal failure was admitted last evening for low in the setting of decompensated combined diastolic and systolic heart failure along with worsening renal function. He had fallen several times at home in the preceding days and was found to be weak and hypotensive. Medical history remarkable for endstage combined systolic and diastolic heart failure ejection fraction less than 20% and amyloid cardiomyopathy, CKD 3/4, paroxysmal atrial fibrillation, bicuspid aortic valve with mild aortic valve stenosis, hypertension, type 2 diabetes, failed back surgery syndrome, narcolepsy and other problems as below. The patient was admitted here from March 01 to March 14 for decompensated heart failure worsening renal and hepatic function. Palliative was consulted and poor prognosis reviewed with patient given amyloid cardiomyopathy and ejection fraction under 20%. The patient was started on torsemide 40 mg twice daily for discharge and this was increased to 60 mg twice daily March 24 w/ 03/21 creat 3 at follow-up with my partner in kidney clinic. His presenting creatinine was 4.7, up from a baseline of about 2 from late February 2021. Of note creatinine was already 2.7 March 20. His potassium on presentation was 5.7. This was managed medically. In the emergency department, he also received asked he milligrams IV Lasix x1. This morning creatinine improved to 3.7 with potassium 4.8. He is currently receiving Lasix 60 mg IV twice daily. His blood pressures are at similar level systolic to prior admission here in February with values in the 80s to 100s. A Vo was placed due to CT findings of early outlet obstruction. he states LE edema is somewhat improved. Denies worsening orthopnea. Denies worsening exertional dyspnea. Tolerating p.o. Allergies Allergy/AdvReac Type Severity Reaction Status Date / Time No Known Allergies Allergy Mild Verified 03/30/21 15:12 Home Medications Medication Instructions Recorded Confirmed Type glucosamine-chondroitin 500 mg-400 2 tab PO QAM 09/17/18 03/30/21 History mg tablet (Cidaflex) metoprolol succinate 25 mg 25 mg PO BID 05/05/19 03/30/21 History tablet,extended release 24 hr (Toprol XL) methocarbamol 500 mg tablet 500 mg PO BID #90 tab 05/17/19 03/30/21 History oxycodone 5 mg tablet (Roxicodone) 5 mg PO Q6H PRN 09/17/19 03/30/21 History amiodarone 200 mg tablet 200 mg PO QAM 02/09/20 03/30/21 History apixaban 2.5 mg tablet (Eliquis) 2.5 mg PO Q12H #60 tab 02/09/20 03/30/21 Rx calcium carbonate 500 mg (1,250 1 tab PO DAILY 11/14/20 03/30/21 History mg)-vitamin D3 200 unit tablet (Calcium 500 + D) gabapentin 400 mg capsule 400 mg PO BID 11/14/20 03/30/21 History green tea extract 375 mg capsule 0 mg PO DAILY 11/14/20 03/30/21 History omeprazole 20 mg capsule,delayed 20 mg PO BID 11/14/20 03/30/21 History release patisiran (lipid complex) 2 mg/mL 0 mg IV .[id number] 11/14/20 03/30/21 History intravenous solution pen needle,diabetic, disp unit 32 #100 ea 11/17/20 03/01/21 Rx gauge x ", remover and disposal unit insulin glargine 100 unit/mL (3 20 unit SC DAILY 03/01/21 03/30/21 History mL) subcutaneous pen (Lantus Solostar U-100 Insulin) potassium chloride 20 mEq 20 meq PO BID 30 Days #60 tab 03/14/21 03/30/21 Rx tablet,extended release(part/cryst) (Klor-Con M) cetirizine 10 mg tablet 10 mg PO DAILY PRN 03/30/21 03/30/21 History ergocalciferol (vitamin D2) 1,250 1,250 mcg PO MONTHLY 03/30/21 03/30/21 History mcg (50,000 unit) capsule (Vitamin D2) Patient History Medical History Atrial fibrillation "A.Flutter" onset March 2019 BPH (benign prostatic hyperplasia) Cardiac amyloidosis Chronic back pain Chronic combined systolic and diastolic CHF (congestive heart failure) CKD (chronic kidney disease) stage 4, GFR 15-29 ml/min Congestive heart failure Degenerative disc disease Diabetes mellitus, type II monitoring higher glucose lab testing, possibly related to medication changes in 2019. to have rechecked. following with PCP. Diverticular disease GERD (gastroesophageal reflux disease) History of cardioversion 05/08/19 DONE AT [facility] History of recent fall 07/2020, treated at [facility] Emergency Room. unsure why he fell, may have "passed out?". broken wrist-->casted, no surgical intervention. Hx of atrial flutter 2015 [facility] per medical record Hyperlipidemia Hypertension ICD (implantable cardioverter-defibrillator) in place IMPLANTED 05/30 [employer] (DR. BRYANT) On anticoagulant therapy Osteoarthritis Scoliosis Spinal stenosis Surgical History History of appendectomy History of arthroscopy RT SHOULDER History of back surgery LUMBAR SPINE History of cardiac cath SUMMER 2017 - [facility] - REASON? - NO STENTS/ANGIOPLASTY - DR. BRYANT History of cardioversion 2018 & 01/2020 ([facility]) History of carpal tunnel release BL History of cataract surgery RT/LEFT History of colonoscopy History of esophagogastroduodenoscopy (EGD) History of tooth extraction S/P cardiac pacemaker procedure ICD placed 2018 (Dr Bryant) S/P epidural steroid injection Lumbar Family History Mother FHx: breast cancer Grandmother (Paternal) FHx: stroke Grandmother (Paternal) FHx: myocardial infarction Father Kidney disease ESRD due to DM. 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 How many Children do You have: 1 Feels Safe at Home: Yes Assistive Devices: None Review of Systems Review of Systems: All systems reviewed & are unremarkable except as noted in HPI & below Physical Exam Constitutional: well developed (Sitting up in chair on room air), well nourished and cooperative; no acute distress Eyes: EOM intact bilaterally ENMT: Ears: no external ear abnormality Nose: no external nose abnormality Mouth: + dry oral mucous membranes Neck: no nuchal rigidity Respiratory: normal respiratory effort Auscultation: + diminished lung sounds (Bilateral bases) Cardiovascular: Rate/Rhythm: regular rhythm and + tachycardic Heart Sounds: normal S1 and normal S2 Extremities: + edema (3+ distal bilateral lower extremities) Gastrointestinal (Abdomen): Inspection/Auscultation: normal bowel sounds Percussion/Palpation: abdomen soft; abdomen nontender Musculoskeletal: Extremities: strength 5/5 throughout Skin: no rashes, warm and dry Neurologic: rollins, fluent speech, no tremor Psychiatric: Orientation: alert and oriented x 3 Eye Contact: good eye contact Speech: normal rate/rhythm/volume of speech Genitourinary: Vo with ample yellow urine Results & Data ([facility]) Vital Signs (Past 12 Hours) Vital Signs Temp Pulse Resp BP Pulse Ox 03/31/21 15:02 36.4 C L 83 16 86/54 L 91 03/31/21 11:45 36.7 C 103 H 17 99/53 L 96 03/31/21 08:15 104/69 03/31/21 08:07 36.6 C 73 17 97/69 L 93 03/31/21 03:09 36.4 C L 76 20 102/64 95 Laboratory Results 03/31/21 07:09 03/31/21 08:53 UA reviewed from admission: Cloudy yellow urine specific gravity 1010 pH of 5 with 3+ blood 3+ leukocyte Estrace greater than 30 white cells, 5-10 red cells, 0-5 epithelial cells, 2+ bacteria, other indices negative. Urine culture positive for 2 types of gram-negative rods Diagnostic Findings CT abd/pelvis 1. Interval development of a subacute mild superior endplate compression fracture at L1. 2. Moderate body wall edema, mild mesenteric edema, mild periportal edema, and trace perihepatic ascites. This is likely secondary to the patient's diffuse edematous state. 3. Mild gallbladder wall distention, unchanged. No gallbladder wall thickening. 4. Moderate right pleural effusion, unchanged. 5. No definite bowel wall thickening or obstruction. 6. Mildly distended bladder with mild fullness within the bilateral renal collecting systems. This suggests chronic outlet obstruction from the enlarged prostate gland. Consider Vo catheterization for decompression. Chest x-ray 1. Mild interval worsening/redistribution of the right pleural effusion. 2. No definite pleural effusion on the left is seen. 3. Atelectasis or infiltrates at bilateral bases. 4. Limited exam due to low inspiratory effort and patient's chin obscuring bilateral lung apices. Head CT No acute intracranial abnormality or calvarial fracture Cervical spine CT 1. There is no evidence of fracture or subluxation involving the cervical spine. 2. Osteopenia and spondylotic change as above. 3. Large right pleural effusion.
[2021-03-31] MEDS: LIDOCAINE 5% 1 PATCH TD SCH (16:44)
[2021-03-31] MEDS: cefTRIAXone SODIUM 1,000 MG in DEXTROSE 5% 50 ML IV SCH (22:23)
[2021-04-01 07:10] LABS: Hematocrit (blood only) 43.7 % (42-52); Hemoglobin 14.7 g/dL (14.0-18.0); Mean Corpuscular Hemoglobin 27.3 pg (25-34); Mean Corpuscular Hgb Conc 33.6 g/dL (32-36); Mean Corpuscular Volume 81.2 fL (80-100); Platelet Count 141 K/uL (130-400); RDW Coefficient of Variation 19.7 % (11.5-14.5); Red Blood Count 5.38 M/uL (4.7-6.1); White Blood Count 7.94 K/uL (4.8-10.8)
[2021-04-01] MEDS: FUROSEMIDE 60 MG in SYRINGE 0 ML IV SCH ×2 (07:34→20:12)
[2021-04-01 07:35] LABS: Albumin Globulin Ratio 0.9 (0.9-2); Albumin Level 2.8 gm/dl (3.4-5.0); BUN Creatinine Ratio 23.8 (10-20); Bilirubin,Total 1.8 mg/dl (0.2-1); Calcium 8.3 mg/dl (8.5-10.1); Creatinine Clr Calc Pharmacy 19.7 ml/min; Est GFR (Non-African American) 18.1 ml/min; Potassium 3.8 mmol/L (3.5-5.1); Total Protein 5.8 gm/dl (6.4-8.2)
[2021-04-01] MEDS: AMIODARONE 200 MG TAB PO SCH (08:35)
[2021-04-01] MEDS: GABAPENTIN 400 MG CAP PO SCH (08:36)
[2021-04-01] MEDS: APIXABAN 2.5 MG TAB PO SCH ×2 (08:36→20:14)
[2021-04-01] MEDS: CALCIUM 600MG + VIT D 400 IU TAB PO SCH (08:36)
[2021-04-01] MEDS: GLUCOSAMINE SULFATE 500 MG CAP PO SCH (08:36)
[2021-04-01] MEDS: INSULIN ASPART 100 UNITS/ML 3 ML PEN SC SCH ×4 (08:36→20:16)
[2021-04-01] MEDS: METHOCARBAMOL 500 MG TABLET PO SCH ×2 (08:36→20:15)
[2021-04-01] MEDS: METOPROLOL SUCC 25MG EXT REL TAB PO SCH ×2 (08:36→20:15)
[2021-04-01] MEDS: PANTOprazole 40 MG TAB PO SCH ×2 (08:36→20:14)
--- NOTE | 2021-04-01 11:29 | Nephrology Progress Note ---
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 High risk for CKD progression. Hyperkalemia from admission improved quickly with medical management. Continue dialysis diet -Renal functions have improved. Continue Lasix 60 mg IV every 12 hours No indication for urgent dialysis; given end-stage cardiac disease, poor candidate in any event Low threshold to halve gabapentin dose while in acute renal failure (2) Volume overload: Plan: -continue diuresis as above Added 1.5 L fluid restriction to low-sodium diet Needs daily standing weight and strict intake and output to continue Admission and Anticipated Discharge Date Admission Date: March 30, 2021 Subjective f/U up for CHF exacerbation, acute renal failure, etc seen resting in bed, comfortable not in distress states he feels ok Review of Systems Review of Systems: All systems reviewed & are unremarkable except as noted in HPI & below Physical Exam Physical Exam: Constitutional: WD/WN, vitals as above; no acute distress Eyes: + anicteric sclerae; no conjunctival abnormality Respiratory: normal respiratory effort; no respiratory distress and no labored breathing Auscultation: lungs clear to auscultation bilaterally; no rales, no rhonchi and no wheezes Cardiovascular: Rate/Rhythm: Normal Heart Sounds: no gallop and no cardiac rub Extremities: no calf tenderness and no pedal edema Gastrointestinal (Abdomen): Inspection/Auscultation: normal bowel sounds; abdomen not distended Musculoskeletal: Head/Neck/Chest: normocephalic, head atraumatic and neck supple Skin: no rashes and no jaundice Neurologic: moves all extremities; no focal motor deficits and not confused Results & Data ([facility]) Vital Signs (Past 12 Hours) Vital Signs Temp Pulse Resp BP Pulse Ox 04/01/21 07:00 36.5 C 61 18 100/69 94 04/01/21 03:00 36.5 C 62 16 92/56 L 94 Laboratory Results 04/01/21 06:49 04/01/21 06:49
--- NOTE | 2021-04-01 14:02 | Cardiology Progress Note ---
Date of Service April 01, 2021 Assessment & Plan (1) Chronic combined systolic and diastolic CHF (congestive heart failure): (2) Atrial flutter: (3) Hyperkalemia: (4) Acute on chronic kidney failure: Plan: Rate controlled atrial flutter noted. Hypotension with SBPs in the 90s noted. Potassium improved from 5.7 to 4.8 to 3.8. Likely with congestive hepatopathy INR up to 1.9 03/31, will repeat 04/02. Continue Eliquis with caution, 2.5 mg BID, given JOO/ CKD and elevated INR. Poor candidate for coumadin as anticipate INR management would be prohibitively difficult. Continue furosemide 60 mg IV BID, Vo catheter. Admission and Anticipated Discharge Date Admission Date: March 30, 2021 Subjective Patient seen in cardiology follow-up. No acute distress. Chronically ill in appearance. Upper body cardiac cachexia noted, which has been progressive over the last year or 2. Physical Exam Physical Exam: Temp Pulse Resp BP Pulse Ox 36.6 C 73 17 104/69 93 03/31/21 08:07 03/31/21 08:07 03/31/21 08:07 03/31/21 08:15 03/31/21 08:07 Respiratory: Auscultation: + diminished lung sounds ( decreased breath sounds bilaterally at the bases, worse on the right side,) Cardiovascular: Rate/Rhythm: regular rate Heart Sounds: + murmur ( 1/6 systolic murmur) Extremities: + edema (2+ bilateral LE edema) Results & Data ([facility]) Vital Signs (Past 12 Hours) Vital Signs Temp Pulse Pulse Resp BP Pulse Ox 04/01/21 12:43 36.8 C 98 04/01/21 11:00 36.3 C L 77 18 96/61 L 04/01/21 08:00 84 04/01/21 07:00 36.5 C 61 18 100/69 94 04/01/21 03:00 36.5 C 62 16 92/56 L 94 Laboratory Results Cardiac Enzymes 04/01/21 Range/Units 06:49 AST 461 H (15-37) U/L CBC 04/01/21 Range/Units 06:49 WBC 7.94 (4.8-10.8) K/uL RBC 5.38 (4.7-6.1) M/uL Hgb 14.7 (14.0-18.0) g/dL Hct 43.7 (42-52) % Plt Count 141 (130-400) K/uL Comprehensive Metabolic Panel 04/01/21 Range/Units 06:49 Sodium 143 (136-145) mmol/L Potassium 3.8 D (3.5-5.1) mmol/L Chloride 106 (98-107) mmol/L Carbon Dioxide 31 (21-32) mmol/L BUN 73 H (7-18) mg/dl Creatinine 3.09 H D (0.6-1.4) mg/dl Glucose 133 H (70-99) mg/dl Calcium 8.3 L (8.5-10.1) mg/dl AST 461 H (15-37) U/L ALT 492 H (12-78) U/L Alkaline Phosphatase 174 H (45-117) U/L Total Protein 5.8 L (6.4-8.2) gm/dl Albumin 2.8 L (3.4-5.0) gm/dl Intake and Output 03/31/21 04/01/21 04/01/21 22:59 06:59 14:59 Intake Total 390 / 1100 150 / 1100 Output Total 550 / 2250 850 / 2250 825 / 825 Balance -160 / -1150 -700 / -1150 -825 / -825 Intake: IV 50 / 50 cefTRIAXone SODIUM 1,000 mg In 50 / 50 Dextrose 5% 50 ml @ 100 mls/hr IV Q24H [facility] Rx#:[id number] Oral 340 / 1050 150 / 1050 Output: Urine Amount (Catheter) 550 / 2250 850 / 2250 825 / 825 Vo/Indwelling 550 / 2250 850 / 2250 825 / 825 Other: Weight 79.1 kg Weight Measurement Method Standing Scale
--- NOTE | 2021-04-01 14:10 | Hospitalist Progress Note ---
Date of Service April 01, 2021 Assessment & Plan (1) Volume overload: (2) Acute on chronic kidney failure: (3) Hyperkalemia: (4) Cardiac amyloidosis: (5) Chronic combined systolic and diastolic CHF (congestive heart failure): (6) Pleural effusion, right: (7) Diabetes mellitus, type II: (8) Paroxysmal atrial fibrillation: (9) Elevated troponin: Plan: This is an 80yo M with a complex medical history of systolic and diastolic CHF with EF <20%, amyloid cardiomyopathy, CKD III-IV, paroxysmal atrial fibrillation on eliquis, dual-chamber ICD, bicuspid aortic valve, mild aortic valve stenosis, HTN, DM type II, history of SVT, failed back surgery syndrome, narcolepsy and other medical problems listed below who presents after multiple falls at home in the past few days. Volume overload in setting of decompensated combined diastolic and systolic CHF, persistent moderate right pleural effusion, worsening renal function In setting of advanced combined CHF and amyloid cardiomyopathy with EF<20%, declining renal function and now with hepatic congestion TTE from 03/02/21 with EF <20%, severe LVH End Stage CHF 2/2 cardiac amyloidosis H/o Rt thoracentesis 03/10 - 1 L transudative fluid removed. CXR today with mild interval worsening/redistribution of the right pleural effusion -- negative 2.6 fluid balance so far -- Lasix 40mg IV bid Nephro and Cardiology SVC consulted Acute renal Failure on CKD 3-4 Recent baseline Cr ~ 2, Cr of 4.71on admission Torsemide dose increased to 60mg BID on 03/24 -- crea improving from 4.7 to 3 -- monitor while on Lasix Hyperkalemia K of 5.7 on admission Recently started on potassium supplements on previous admission - will hold Given calcium gluconate, d50 and insulin EKG without acute abnormalities -- K 3.8 Transaminitis Congestive Hepatopathy Tbili 2.4, AST 420, ALT 297, alk phos 228 INR 1.9 Evidence of hepatic congestion on CT abd/pelvis in setting of advanced CHF, renal failure -- LFTs slightly improving Deconditioning PT/OT evaluation Would benefit from placement Fall precautions, CM consult, palliative consult Persistent Atrial fibrillation/flutter Rate controlled, on beta-teetee Eliquis for stroke prophylaxis Dose reduced to 2.5 mg BID for poor renal clearance Troponin elevation Troponin 0.251 initially in setting of CKD, appears to be chronically elevated No chest pain or acute EKG changes Amyloid cardiomyopathy Advanced stage causing severe restrictive cardiomyopathy with decompensated CHF, overall prognosis remains poor Hyperglycemia Last A1C of 6.2, on sliding scale inpatient with BSG AC HS BSGs better DVT Ppx: Eliquis Code status: DNR/DNI PCP: Barbara Dispo: Admitted to PCU. Son Chinmay lives in [facility] and is involved in father's care. Phone # is . Admission and Anticipated Discharge Date Admission Date: March 30, 2021 Subjective ff up for CHF exacerbation, etc seen resting in bed, comfortable sitting in chair states he feels fine overall no chest pain, dyspnea, palpitations, dizziness no other symptoms Review of Systems Review of Systems: all noted and negative except for above Physical Exam Physical Exam: General- oriented x 3, not in distress, speaks in sentences with no effort or accessory muscle use Eyes- anicteric Neck- no JVD Lungs- decreased BS on the right other [place] clear BL no wheezing Heart- normal rate,irregularly irregular rhythm; no murmurs Abdomen- normal bowel sounds, nondistended, soft, nontender Extremities- no pretibial edema, no calf tenderness Neuro- alert, oriented x 3; no gross focal neurologic deficits Skin- warm & dry Results & Data Results & Data ([facility]) Vital Signs (Past 12 Hours) Vital Signs Temp Pulse Pulse Resp BP Pulse Ox 04/01/21 12:43 36.8 C 98 04/01/21 11:00 36.3 C L 77 18 96/61 L 04/01/21 08:00 84 04/01/21 07:00 36.5 C 61 18 100/69 94 04/01/21 03:00 36.5 C 62 16 92/56 L 94
[2021-04-01] MEDS: LIDOCAINE 5% 1 PATCH TD SCH (17:03)
[2021-04-01] MEDS: oxyCODONE HCL IR 5 MG TAB (IMMEDIATE RELEASE) PO PRN (20:19)
[2021-04-01] MEDS: cefTRIAXone SODIUM 1,000 MG in DEXTROSE 5% 50 ML IV SCH (23:17)
[2021-04-02 07:28] LABS: INR 1.4 (0.9-1.1); Prothrombin Time 14.1 Seconds (9.0-12.0)
[2021-04-02 07:52] LABS: Albumin Level 2.7 gm/dl (3.4-5.0); BUN Creatinine Ratio 26.1 (10-20); Calcium 8.3 mg/dl (8.5-10.1); Creatinine Clr Calc Pharmacy 25.8 ml/min; Est GFR (Non-African American) 25.1 ml/min; Potassium 3.4 mmol/L (3.5-5.1)
[2021-04-02 07:54] LABS: Albumin Globulin Ratio 0.8 (0.9-2); Globulin 3.2 gm/dl (2.5-4.0); Total Protein 5.9 gm/dl (6.4-8.2)
[2021-04-02] MEDS ORDERED: POTASSIUM CHLORIDE CRTAB 20 MEQ TABCR PO STA ×2 (08:01→23:01)
[2021-04-02] MEDS: GABAPENTIN 400 MG CAP PO SCH (08:28)
[2021-04-02] MEDS: APIXABAN 2.5 MG TAB PO SCH ×2 (08:28→20:12)
[2021-04-02] MEDS: AMIODARONE 200 MG TAB PO SCH (08:28)
[2021-04-02] MEDS: METOPROLOL SUCC 25MG EXT REL TAB PO SCH ×2 (08:28→20:11)
[2021-04-02] MEDS: METHOCARBAMOL 500 MG TABLET PO SCH ×2 (08:28→20:12)
[2021-04-02] MEDS: FUROSEMIDE 60 MG in SYRINGE 0 ML IV SCH ×3 (08:28→23:20)
[2021-04-02] MEDS: PANTOprazole 40 MG TAB PO SCH ×2 (08:28→20:11)
[2021-04-02] MEDS: INSULIN ASPART 100 UNITS/ML 3 ML PEN SC SCH ×4 (08:29→20:30)
[2021-04-02] MEDS: CALCIUM 600MG + VIT D 400 IU TAB PO SCH (08:29)
[2021-04-02] MEDS: GLUCOSAMINE SULFATE 500 MG CAP PO SCH (08:29)
--- NOTE | 2021-04-02 10:35 | Nephrology Progress Note ---
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 High risk for CKD progression. Hyperkalemia from admission improved quickly with medical management. -Renal functions continue to improve. Continue Lasix 60 mg IV every 12 hours. - Cab decrease Lasix to 40 twice daily from tomorrow. No indication for urgent dialysis; given end-stage cardiac disease, poor candidate in any event (2) Volume overload: Plan: -continue diuresis as above 1.5 L fluid restriction to low-sodium diet Needs daily standing weight and strict intake and output to continue Admission and Anticipated Discharge Date Admission Date: March 30, 2021 Subjective Seen for JOO on CKD. seen resting in bed, comfortable states he feels fine overall no chest pain, dyspnea, palpitations, dizziness no other symptoms Review of Systems Review of Systems: All systems reviewed & are unremarkable except as noted in HPI & below Physical Exam Physical Exam: Constitutional: WD/WN, vitals as above; no acute distress Eyes: + anicteric sclerae; no conjunctival abnormality Respiratory: normal respiratory effort; no respiratory distress and no labored breathing Auscultation: lungs clear to auscultation bilaterally; no rales, no rhonchi and no wheezes Cardiovascular: Rate/Rhythm: Normal Heart Sounds: no gallop and no cardiac rub Extremities: no calf tenderness 2+ pedal edema Gastrointestinal (Abdomen): Inspection/Auscultation: normal bowel sounds; abdo men not distended Musculoskeletal: Head/Neck/Chest: normocephalic, head atraumatic and neck supple Skin: no rashes and no jaundice Neurologic: moves all extremities; no focal motor deficits and not confused Results & Data ([facility]) Vital Signs (Past 12 Hours) Vital Signs Temp Pulse Pulse Resp BP Pulse Ox 04/02/21 08:12 36.9 C 84 19 93/60 L 94 04/02/21 03:44 36.5 C 78 18 96/69 L 97 04/01/21 23:44 70 04/01/21 23:23 36.4 C L 72 20 98/69 L 97 Laboratory Results 04/01/21 06:49 04/02/21 07:04
[2021-04-02] MEDS: cephALEXin 250 MG CAP PO SCH ×2 (13:22→20:12)
--- NOTE | 2021-04-02 14:03 | Cardiology Progress Note ---
Date of Service April 02, 2021 Assessment & Plan (1) Chronic combined systolic and diastolic CHF (congestive heart failure): (2) Atrial flutter: (3) Acute on chronic kidney failure: Plan: Creatinine continues to trend toward improvement. Continue furosemide 60 mg IV twice daily. Had presented with hyperkalemia, potassium now down to 3.4, will supplement orally. Continue Eliquis for stroke prophylaxis. INR has trended down to 1.4. Transaminases remain elevated, likely due to congestive hepatopathy. Continue ongoing amiodarone therapy for rate control purposes with caution. Admission and Anticipated Discharge Date Admission Date: March 30, 2021 Subjective Mr. Givens is seen in cardiology follow-up of fluid retention due to amyloid cardiomyopathy. Rate controlled atrial flutter noted on telemetry. Physical Exam Physical Exam: Temp Pulse Resp BP Pulse Ox 36.3 C L 83 19 103/70 93 04/02/21 11:54 04/02/21 11:54 04/02/21 11:54 04/02/21 11:54 04/02/21 11:54 Constitutional: + cachectic Respiratory: Auscultation: + diminished lung sounds; no crackles Cardiovascular: Rate/Rhythm: regular rate Heart Sounds: + murmur (1/6 systolic murmur) Chest (Breasts): Additional Comments: Left infraclavicular ICD pocket clean dry and intact Gastrointestinal (Abdomen): normal bowel sounds, soft, nontender, no hepatosplenomegaly Neurologic: PERRL, EOMI, accommodation nl, no face palsy, no dysarthria Results & Data ([facility]) Vital Signs (Past 12 Hours) Vital Signs Temp Pulse Pulse Resp BP Pulse Ox 04/02/21 11:54 36.3 C L 83 19 103/70 93 04/02/21 08:12 36.9 C 84 19 93/60 L 94 04/02/21 08:00 65 04/02/21 03:44 36.5 C 78 18 96/69 L 97 Laboratory Results Cardiac Enzymes 04/02/21 Range/Units 07:04 AST 232 H (15-37) U/L Coagulation 04/02/21 Range/Units 07:04 PT 14.1 H (9.0-12.0) Seconds Comprehensive Metabolic Panel 04/02/21 Range/Units 07:04 Sodium 144 (136-145) mmol/L Potassium 3.4 L (3.5-5.1) mmol/L Chloride 106 (98-107) mmol/L Carbon Dioxide 29 (21-32) mmol/L BUN 62 H (7-18) mg/dl Creatinine 2.36 H D (0.6-1.4) mg/dl Glucose 150 H (70-99) mg/dl Calcium 8.3 L (8.5-10.1) mg/dl AST 232 H (15-37) U/L ALT 383 H (12-78) U/L Alkaline Phosphatase 174 H (45-117) U/L Total Protein 5.9 L (6.4-8.2) gm/dl Albumin 2.7 L (3.4-5.0) gm/dl Intake and Output 04/01/21 04/02/21 04/02/21 22:59 06:59 14:59 Intake Total 800 / 1050 250 / 1050 Output Total 950 / 3375 1600 / 3375 Balance -150 / -2325 -1350 / -2325 Intake: IV 50 / 50 cefTRIAXone SODIUM 1,000 mg In 50 / 50 Dextrose 5% 50 ml @ 100 mls/hr IV Q24H [facility] Rx#:[id number] Oral 800 / 1000 200 / 1000 Output: Urine Amount (Catheter) 950 / 3375 1600 / 3375 Vo/Indwelling 950 / 3375 1600 / 3375 Other: Weight 79 kg Weight Measurement Method Built in [facility]
--- NOTE | 2021-04-02 15:47 | Hospitalist Progress Note ---
Date of Service April 02, 2021 Assessment & Plan (1) Volume overload: (2) Acute on chronic kidney failure: (3) Hyperkalemia: (4) Cardiac amyloidosis: (5) Chronic combined systolic and diastolic CHF (congestive heart failure): (6) Pleural effusion, right: (7) Diabetes mellitus, type II: (8) Paroxysmal atrial fibrillation: (9) Elevated troponin: Plan: This is an 80yo M with a complex medical history of systolic and diastolic CHF with EF <20%, amyloid cardiomyopathy, CKD III-IV, paroxysmal atrial fibrillation on eliquis, dual-chamber ICD, bicuspid aortic valve, mild aortic valve stenosis, HTN, DM type II, history of SVT, failed back surgery syndrome, narcolepsy and other medical problems listed below who presents after multiple falls at home in the past few days. Volume overload in setting of decompensated combined diastolic and systolic CHF, persistent moderate right pleural effusion, worsening renal function In setting of advanced combined CHF and amyloid cardiomyopathy with EF<20%, declining renal function and now with hepatic congestion TTE from 03/02/21 with EF <20%, severe LVH End Stage CHF 2/2 cardiac amyloidosis H/o Rt thoracentesis 03/10 - 1 L transudative fluid removed. CXR today with mild interval worsening/redistribution of the right pleural effusion -- negative 4L fluid balance so far -- continue Lasix 60mg IV bid Nephro and Cardiology SVC consulted Acute renal Failure on CKD 3-4 Recent baseline Cr ~ 2, Cr of 4.71on admission Torsemide dose increased to 60mg BID on 03/24 -- crea improving from 4.7 to 3 to 2.3 -- monitor while on Lasix Hyperkalemia K of 5.7 on admission Recently started on potassium supplements on previous admission - will hold Given calcium gluconate, d50 and insulin EKG without acute abnormalities -- K 3.4 replaced Transaminitis Congestive Hepatopathy Tbili 2.4, AST 420, ALT 297, alk phos 228 INR 1.9 Evidence of hepatic congestion on CT abd/pelvis in setting of advanced CHF, renal failure -- LFTs slightly improving INR 1.4 Deconditioning PT/OT evaluation Would benefit from placement Fall precautions, CM consult, palliative consult Persistent Atrial fibrillation/flutter Rate controlled, on beta-teetee Eliquis for stroke prophylaxis Dose reduced to 2.5 mg BID for poor renal clearance Troponin elevation Troponin 0.251 initially in setting of CKD, appears to be chronically elevated No chest pain or acute EKG changes Amyloid cardiomyopathy Advanced stage causing severe restrictive cardiomyopathy with decompensated CHF, overall prognosis remains poor Hyperglycemia Last A1C of 6.2, on sliding scale inpatient with BSG AC HS BSGs better DVT Ppx: Eliquis Code status: DNR/DNI PCP: Barbara Dispo: Admitted to PCU. Son Chinmay lives in [facility] and is involved in father's care. Phone # is . Admission and Anticipated Discharge Date Admission Date: March 30, 2021 Subjective ff up for CHF exacerbation, etc seen resting in bed, comfortable in good spirits states he feels better overall today no chest pain, dyspnea, palpitations, dizziness no leg pain very interested to participate with PT/OT ambulating with assistance to the bathroom, no problems no other symptoms Review of Systems Review of Systems: all noted and negative except for above Physical Exam Physical Exam: General- oriented x 3, not in distress, speaks in sentences with no effort or accessory muscle use Eyes- anicteric Neck- no JVD Lungs- mild decrease BS - R base clear on the left Heart- normal rate, irregularly irregular rhythm; no murmurs Abdomen- normal bowel sounds, nondistended, soft, nontender Extremities- grade 1 lower extremity edema, no calf tenderness Neuro- alert, oriented x 3; no gross focal neurologic deficits Skin- warm & dry Results & Data Results & Data ([facility]) Vital Signs (Past 12 Hours) Vital Signs Temp Pulse Pulse Resp BP Pulse Ox 04/02/21 11:54 36.3 C L 83 19 103/70 93 04/02/21 08:12 36.9 C 84 19 93/60 L 94 04/02/21 08:00 65 04/02/21 03:44 36.5 C 78 18 96/69 L 97 all noted and reviewed including below
[2021-04-02] MEDS: LIDOCAINE 5% 1 PATCH TD SCH (17:17)
[2021-04-02] MEDS ORDERED: CEFDINIR 125 MG/5 ML 60 ML BTL PO SCH (21:00)
[2021-04-03] MEDS: oxyCODONE HCL IR 5 MG TAB (IMMEDIATE RELEASE) PO PRN ×3 (04:26→23:33)
[2021-04-03] MEDS: INSULIN ASPART 100 UNITS/ML 3 ML PEN SC SCH ×4 (08:20→20:44)
[2021-04-03] MEDS: cephALEXin 250 MG CAP PO SCH ×2 (08:22→20:04)
[2021-04-03] MEDS: PANTOprazole 40 MG TAB PO SCH ×2 (08:23→20:05)
[2021-04-03] MEDS: CALCIUM 600MG + VIT D 400 IU TAB PO SCH (08:23)
[2021-04-03] MEDS: GLUCOSAMINE SULFATE 500 MG CAP PO SCH (08:23)
[2021-04-03] MEDS: AMIODARONE 200 MG TAB PO SCH (08:23)
[2021-04-03] MEDS: METOPROLOL SUCC 25MG EXT REL TAB PO SCH ×2 (08:23→20:04)
[2021-04-03] MEDS: APIXABAN 2.5 MG TAB PO SCH ×2 (08:24→20:03)
[2021-04-03] MEDS: METHOCARBAMOL 500 MG TABLET PO SCH ×2 (08:24→20:04)
[2021-04-03] MEDS: GABAPENTIN 400 MG CAP PO SCH (08:24)
[2021-04-03] MEDS: FUROSEMIDE 60 MG in SYRINGE 0 ML IV SCH ×2 (08:25→20:02)
[2021-04-03 10:18] LABS: INR 1.4 (0.9-1.1); Prothrombin Time 13.6 Seconds (9.0-12.0)
[2021-04-03 10:49] LABS: Albumin Globulin Ratio 0.9 (0.9-2); Albumin Level 3.1 gm/dl (3.4-5.0); BUN Creatinine Ratio 26.3 (10-20); Bilirubin,Total 2.3 mg/dl (0.2-1); Calcium 8.2 mg/dl (8.5-10.1); Creatinine Clr Calc Pharmacy 28.3 ml/min; Est GFR (African American) 32.5 ml/min; Est GFR (Non-African American) 28.1 ml/min; Globulin 3.3 gm/dl (2.5-4.0); Magnesium 2.4 mg/dl (1.8-2.4); Total Protein 6.4 gm/dl (6.4-8.2)
--- NOTE | 2021-04-03 12:00 | Cardiology Progress Note ---
Date of Service April 03, 2021 Assessment & Plan (1) Chronic combined systolic and diastolic CHF (congestive heart failure): (2) Atrial flutter: (3) Acute on chronic kidney failure: Plan: Creatinine continues to trend toward improvement. Continue furosemide 60 mg IV twice daily. Transaminases improving with ongoing diuretic therapy. At the time of his recent discharge earlier this month he was to take torsemide 20 mg tablets, 2 tablets 2 times per day. He has a longstanding history of having difficulty with tolerating loop diuretic therapy due to orthostatic hypotension. He has done well with taking an occasional dose of metolazone, and this likely needs to be reinitiated at time of discharge. Admission and Anticipated Discharge Date Admission Date: March 30, 2021 Subjective Mr. Givens is seen in cardiology follow-up. He denies subjective complaint. He is eager to participate with physical therapy today telemetry reveals rate controlled atrial flutter in the 80s. Physical Exam Physical Exam: Temp Pulse Resp BP Pulse Ox 36.3 C L 83 19 103/70 93 04/02/21 11:54 04/02/21 11:54 04/02/21 11:54 04/02/21 11:54 04/02/21 11:54 Constitutional: + cachectic Respiratory: Auscultation: + diminished lung sounds; no crackles Cardiovascular: Rate/Rhythm: regular rate Heart Sounds: + murmur (1/6 systolic murmur) Extremities: + edema (2+ bilateral LE edema) Gastrointestinal (Abdomen): normal bowel sounds, soft, nontender, no hepatosplenomegaly Neurologic: PERRL, EOMI, accommodation nl, no face palsy, no dysarthria Results & Data ([facility]) Vital Signs (Past 12 Hours) Vital Signs Temp Pulse Resp BP BP Pulse Ox 04/03/21 07:00 36.6 C 74 16 92/67 L 94 04/03/21 03:00 36.5 C 83 18 110/65 94 Laboratory Results Creatinine 04/03/2021 is 2.15, having trended down from 4.7 on presentation.
--- NOTE | 2021-04-03 12:16 | Communication Note ---
Date of Service: April 03, 2021 Update. Patient has had multiple falls at home. I have concerns he is not able to performed his ADLs. I do not thin he is going to get stronger with rehab, has end stage CM. [place]. May need to consider SNF placement.
[2021-04-03] MEDS: BENZONATATE 100 MG CAPSULE PO PRN ×2 (13:08→20:34)
--- NOTE | 2021-04-03 15:06 | Palliative Care Consultation ---
Date of Consultation April 03, 2021 Assessment & Plan (1) Weakness: (2) Palliative care encounter: I talked with Mr. Givens who was seen by palliative care on his last admission. He tells me that he would like to do whatever possible to build up his strength to be able to return home. He does have a referral to [facility]. WE discussed that rehab potential may be limited and that he will likely reach a point where he is not able to care for himself at home. We discussed being at a facility that would provide 04/03 care. He acknowledges that he will need this at some point but does not feel that time is now. As with previous discussion, he tells me that he would want rehospitalization if needed but would not want to have resuscitation. Palliative Care will follow. (3) Acute on chronic kidney failure: (4) Nonischemic cardiomyopathy: (5) Chronic combined systolic and diastolic CHF (congestive heart failure): (6) Diabetes mellitus, type II: History of Present Illness Reason for Consultation: goals of care Requesting Physician: Nathalie Preston Attending Physician: Joshua Grier MD History of Present Illness 80 yo gentleman with mixed systolic and diastolic heart failure. 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 He lives alone with a lady who checks in on him periodicially. His son, who is his surrogate decision maker lives in [facility]. He tells me that he is generally able to manage at home by himself but had been having falls and increased weakness. He is admitted with heart failure exacerbation, transaminitis and JOO. Creatinine has been improving and he is improving with fluid restriction and diuretics. Per RN, he is able to ambulate to the bathroom with a walker. We have been consulted to assist with goals of care. Allergies Allergy/AdvReac Type Severity Reaction Status Date / Time No Known Allergies Allergy Mild Verified 03/30/21 15:12 Home Medications Medication Instructions Recorded Confirmed Type glucosamine-chondroitin 500 mg-400 2 tab PO QAM 09/17/18 03/30/21 History mg tablet (Cidaflex) metoprolol succinate 25 mg 25 mg PO BID 05/05/19 03/30/21 History tablet,extended release 24 hr (Toprol XL) methocarbamol 500 mg tablet 500 mg PO BID #90 tab 05/17/19 03/30/21 History oxycodone 5 mg tablet (Roxicodone) 5 mg PO Q6H PRN 09/17/19 03/30/21 History amiodarone 200 mg tablet 200 mg PO QAM 02/09/20 03/30/21 History apixaban 2.5 mg tablet (Eliquis) 2.5 mg PO Q12H #60 tab 02/09/20 03/30/21 Rx calcium carbonate 500 mg (1,250 1 tab PO DAILY 11/14/20 03/30/21 History mg)-vitamin D3 200 unit tablet (Calcium 500 + D) gabapentin 400 mg capsule 400 mg PO BID 11/14/20 03/30/21 History green tea extract 375 mg capsule 0 mg PO DAILY 11/14/20 03/30/21 History omeprazole 20 mg capsule,delayed 20 mg PO BID 11/14/20 03/30/21 History release patisiran (lipid complex) 2 mg/mL 0 mg IV .[id number] 11/14/20 03/30/21 History intravenous solution pen needle,diabetic, disp unit 32 #100 ea 11/17/20 03/01/21 Rx gauge x 5/32", remover and disposal unit insulin glargine 100 unit/mL (3 20 unit SC DAILY 03/01/21 03/30/21 History mL) subcutaneous pen (Lantus Solostar U-100 Insulin) potassium chloride 20 mEq 20 meq PO BID 30 Days #60 tab 03/14/21 03/30/21 Rx tablet,extended release(part/cryst) (Klor-Con M) cetirizine 10 mg tablet 10 mg PO DAILY PRN 03/30/21 03/30/21 History ergocalciferol (vitamin D2) 1,250 1,250 mcg PO MONTHLY 03/30/21 03/30/21 History mcg (50,000 unit) capsule (Vitamin D2) Patient History Medical History Atrial fibrillation "A.Flutter" onset March 2019 BPH (benign prostatic hyperplasia) Cardiac amyloidosis Chronic back pain Chronic combined systolic and diastolic CHF (congestive heart failure) CKD (chronic kidney disease) stage 4, GFR 15-29 ml/min Congestive heart failure Degenerative disc disease Diabetes mellitus, type II monitoring higher glucose lab testing, possibly related to medication changes in 2019. to have rechecked. following with PCP. Diverticular disease GERD (gastroesophageal reflux disease) History of cardioversion 05/08/19 DONE AT [facility] History of recent fall 07/2020, treated at [facility] Emergency Room. unsure why he fell, may have "passed out?". broken wrist-->casted, no surgical intervention. Hx of atrial flutter 2015 [facility] per medical record Hyperlipidemia Hypertension ICD (implantable cardioverter-defibrillator) in place IMPLANTED 05/30 [employer] (DR. BRYANT) On anticoagulant therapy Osteoarthritis Scoliosis Spinal stenosis Surgical History History of appendectomy History of arthroscopy RT SHOULDER History of back surgery LUMBAR SPINE History of cardiac cath SUMMER 2017 - [facility] - REASON? - NO STENTS/ANGIOPLASTY - DR. BRYANT History of cardioversion 2018 & 01/2020 ([facility]) History of carpal tunnel release BL History of cataract surgery RT/LEFT History of colonoscopy History of esophagogastroduodenoscopy (EGD) History of tooth extraction S/P cardiac pacemaker procedure ICD placed 2018 (Dr Bryant) S/P epidural steroid injection Lumbar Family History Mother FHx: breast cancer Grandmother (Paternal) FHx: stroke Grandmother (Paternal) FHx: myocardial infarction Father Kidney disease ESRD due to DM. 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 How many Children do You have: 1 Feels Safe at Home: Yes Assistive Devices: Walker Review of Systems Review of Systems: [place] Symptom Assessment Scale Pain 0/3 Dyspnea 1/3 Nausea 0/3 Anxiety 0/3 Fatigue 1/3 Drowsiness 0/3 Palliative Performance Score 50% Physical Exam Constitutional: + ill appearing and + thin ENMT: Mouth: + dry oral mucous membranes Respiratory: normal respiratory effort and + cough (dry); no labored breathing Cardiovascular: Rate/Rhythm: regular rate and regular rhythm Gastrointestinal (Abdomen): distended Musculoskeletal: Extremities: + muscle atrophy Neurologic: no focal motor deficits Results & Data ([facility]) Vital Signs (Past 12 Hours) Vital Signs Temp Pulse Resp BP Pulse Ox 04/03/21 11:00 97.9 F 97 H 18 122/82 92 04/03/21 07:00 97.9 F 74 16 92/67 L 94 PG Care Time/CCT Total # of Minutes Spent Total Time Spent: 60 Total Time Spent with Patient: Total time spent is greater than 50% in co ordination of care (as documented) at patient's floor/unit and/or counseling patient: goals of care, code status Coding Level of Care Code 70168 Initial Inpt Care Lvl 2 Diagnoses Weakness R53.1 Palliative care encounter Z51.5 Acute on chronic kidney failure N17.9; N18.9 Nonischemic cardiomyopathy I42.8 Chronic combined systolic and diastolic CHF (congestive heart failure) I50.42 Diabetes mellitus, type II E11.9
[2021-04-03] MEDS: LIDOCAINE 5% 1 PATCH TD SCH (17:14)
--- NOTE | 2021-04-03 18:41 | Nephrology Progress Note ---
Date of Service April 03, 2021 Assessment & Plan (1) Acute on chronic kidney failure: Plan: Improving nonoliguric acute kidney injury stage I on now stage IV chronic kidney disease in the setting of end-stage cardiac amyloidosis. High risk for CKD progression. Hyperkalemia from admission improved quickly with medical management. -Renal functions stable. Continue diuretics per cardiology No indication for urgent dialysis; given end-stage cardiac disease, poor candidate in any event (2) Volume overload: Plan: -continue diuresis as above 1.5 L fluid restriction to low-sodium diet Needs daily standing weight and strict intake and output to continue Admission and Anticipated Discharge Date Admission Date: March 30, 2021 Subjective Seen for JOO and CHF. Breathing is better today. Legs are swollen. Making urine. Cr stable Review of Systems Review of Systems: All other systems were reviewed and negative except as noted in HPI Physical Exam Physical Exam: General exam: Appears comfortable, no acute distress HEENT: Pupils are equal and reactive to light Neck: No JVD, neck is supple trachea is midline Respiratory system: Clear breath sounds bilaterally. Gastrointestinal: Abdomen is soft, non distended, non tender, bowel sounds are present CVS: Regular rate and rhythm. No murmurs, rubs or gallops Musculoskeletal: No joint or muscle tenderness Extremities: Non tender, 1+ edema, peripheral pulses are present Neuro: Oriented, no tremors, no focal neurological deficits Skin: No rashes Results & Data ([facility]) Vital Signs (Past 12 Hours) Vital Signs Temp Pulse Pulse Resp BP Pulse Ox 04/03/21 15:00 79 04/03/21 11:00 36.6 C 97 H 18 122/82 92 04/03/21 07:00 36.6 C 74 16 92/67 L 94 Laboratory Results 04/03/21 09:41 04/03/21 09:41 Albumin 3.1 L
--- NOTE | 2021-04-03 19:26 | Hospitalist Progress Note ---
Date of Service April 03, 2021 Assessment & Plan (1) Volume overload: (2) Acute on chronic kidney failure: (3) Hyperkalemia: (4) Cardiac amyloidosis: (5) Chronic combined systolic and diastolic CHF (congestive heart failure): (6) Pleural effusion, right: (7) Diabetes mellitus, type II: (8) Paroxysmal atrial fibrillation: (9) Elevated troponin: Plan: This is an 80yo M with a complex medical history of systolic and diastolic CHF with EF <20%, amyloid cardiomyopathy, CKD III-IV, paroxysmal atrial fibrillation on eliquis, dual-chamber ICD, bicuspid aortic valve, mild aortic valve stenosis, HTN, DM type II, history of SVT, failed back surgery syndrome, narcolepsy and other medical problems listed below who presents after multiple falls at home in the past few days. Volume overload in setting of decompensated combined diastolic and systolic CHF, persistent moderate right pleural effusion, worsening renal function In setting of advanced combined CHF and amyloid cardiomyopathy with EF<20%, declining renal function and now with hepatic congestion TTE from 03/02/21 with EF <20%, severe LVH End Stage CHF 2/2 cardiac amyloidosis H/o Rt thoracentesis 03/10 - 1 L transudative fluid removed. CXR today with mild interval worsening/redistribution of the right pleural effusion -- negative 5.3 L fluid balance so far -- continue Lasix 60mg IV bid Nephro and Cardiology SVC consulted --Repeat chest x-ray today Acute renal Failure on CKD 3-4 Recent baseline Cr ~ 2, Cr of 4.71on admission Torsemide dose increased to 60mg BID on 03/24 -- crea improving from 4.7 to 3 to 2.1 -- monitor while on Lasix Hyperkalemia K of 5.7 on admission Recently started on potassium supplements on previous admission - will hold Given calcium gluconate, d50 and insulin EKG without acute abnormalities -- K 3.4 replaced Transaminitis Congestive Hepatopathy Tbili 2.4, AST 420, ALT 297, alk phos 228 INR 1.9 Evidence of hepatic congestion on CT abd/pelvis in setting of advanced CHF, renal failure -- LFTs slightly improving INR 1.4 Deconditioning PT/OT evaluation Would benefit from placement Fall precautions, CM consult, palliative consult Persistent Atrial fibrillation/flutter Rate controlled, on beta-teetee Eliquis for stroke prophylaxis Dose reduced to 2.5 mg BID for poor renal clearance Troponin elevation Troponin 0.251 initially in setting of CKD, appears to be chronically elevated No chest pain or acute EKG changes Amyloid cardiomyopathy Advanced stage causing severe restrictive cardiomyopathy with decompensated CHF, overall prognosis remains poor Hyperglycemia Last A1C of 6.2, on sliding scale inpatient with BSG AC HS BSGs better DVT Ppx: Eliquis Code status: DNR/DNI PCP: Barbara Dispo: Admitted to PCU. Son Chinmay lives in [facility] and is involved in father's care. Phone # is . Admission and Anticipated Discharge Date Admission Date: March 30, 2021 Subjective Follow-up for CHF, exacerbation, etc. Seen resting in bed, comfortable, not in distress States he feels okay overall Has a dry cough, no fevers or chills, no sputum production no chest pain, dyspnea, palpitations, dizziness No other symptom Review of Systems Review of Systems: all noted and negative except for above Physical Exam Physical Exam: General- oriented x 3, not in distress, speaks in sentences with no effort or accessory muscle use Eyes- anicteric Neck- no JVD Lungs-mild crackles at the right base, no wheezing, good air entry bilaterally Heart- normal rate, irregularly irregular rhythm; no murmurs Abdomen- normal bowel sounds, nondistended, soft, nontender Extremities-grade 1 lower leg edema, no calf tenderness Neuro- alert, oriented x 3; no gross focal neurologic deficits Skin- warm & dry Results & Data Results & Data ([facility]) Vital Signs (Past 12 Hours) Vital Signs Temp Pulse Pulse Resp BP Pulse Ox 04/03/21 15:00 79 04/03/21 11:00 36.6 C 97 H 18 122/82 92 all noted and reviewed including below
--- NOTE | 2021-04-03 20:05 | XRay Report ---
XR chest 1V portable HISTORY: cough, r/o pneumonia COMPARISON: Chest 03/30/2021. FINDINGS: No pneumothorax. The heart remains moderately enlarged. A small to moderate right pleural e ffusion and right basilar densities have slightly improved. Left-sided pacemaker/defibrillator is aga in noted. No new focal lung consolidations. There is mild central pulmonary vascular congestion witho ut overt edema. IMPRESSION: 1. Interval improvement in the small to moderate right pleural effusion and right basilar densities. 2. Stable cardiomegaly with mild central pulmonary vascular congestion. ACT 112: Negative or not required by law. Electronically signed by: Felix Hall M.D. 04/03/2021 8:04 PM
[2021-04-04] MEDS: FUROSEMIDE 60 MG in SYRINGE 0 ML IV SCH ×2 (06:10→19:31)
--- NOTE | 2021-04-04 06:55 | CT Scan Report ---
CT head/brain wo con CLINICAL HISTORY: 80 years-old Male with confusion. Acutely altered mental status TECHNIQUE: Multiple axial CT images of the head were obtained without contrast. A dose lowering tech nique was utilized adhering to the principles of ALARA. CT DOSE: 995.11 mGy.cm COMPARISON: Head CT 03/30/2021 FINDINGS: No acute intracranial hemorrhage, midline shift, intracranial mass, hydrocephalus, territorial ischem ia or abnormal extra-axial collection. Age-related involutional changes. Senescent calcifications of the basal ganglia with cerebral vascular calcifications. Mildly motion degraded exam. The calvarium is intact. Subcutaneous edema of the upper midline neck posteriorly. The paranasal sinu ses, mastoid air cells, and middle ear cavities are clear. IMPRESSION: Motion degraded exam. No acute intracranial abnormality identified. ACT 112: Negative or not required by law. The above report was generated using voice recognition software. It may contain grammatical, syntax o r spelling errors. Electronically signed by: Quentin Phelps M.D. 04/04/2021 6:53 AM
[2021-04-04] MEDS: INSULIN ASPART 100 UNITS/ML 3 ML PEN SC SCH ×4 (08:03→21:05)
[2021-04-04] MEDS: METOPROLOL SUCC 25MG EXT REL TAB PO SCH ×3 (08:08→20:56)
[2021-04-04] MEDS: METHOCARBAMOL 500 MG TABLET PO SCH ×2 (08:08→20:56)
[2021-04-04] MEDS: PANTOprazole 40 MG TAB PO SCH ×2 (08:08→20:56)
[2021-04-04] MEDS: GABAPENTIN 400 MG CAP PO SCH (08:09)
[2021-04-04] MEDS: AMIODARONE 200 MG TAB PO SCH (08:10)
[2021-04-04] MEDS: CALCIUM 600MG + VIT D 400 IU TAB PO SCH (08:10)
[2021-04-04] MEDS: APIXABAN 2.5 MG TAB PO SCH ×2 (08:10→20:57)
[2021-04-04] MEDS: cephALEXin 250 MG CAP PO SCH (08:10)
[2021-04-04] MEDS: GLUCOSAMINE SULFATE 500 MG CAP PO SCH (08:11)
[2021-04-04 08:41] LABS: Albumin Globulin Ratio 0.9 (0.9-2); Albumin Level 2.9 gm/dl (3.4-5.0); BUN Creatinine Ratio 24.6 (10-20); Bilirubin,Total 2.4 mg/dl (0.2-1); Calcium 8.3 mg/dl (8.5-10.1); Creatinine Clr Calc Pharmacy 33.1 ml/min; Est GFR (African American) 39.2 ml/min; Est GFR (Non-African American) 33.9 ml/min; Globulin 3.2 gm/dl (2.5-4.0); Magnesium 2.6 mg/dl (1.8-2.4); Potassium 3.3 mmol/L (3.5-5.1); Total Protein 6.1 gm/dl (6.4-8.2)
[2021-04-04] MEDS ORDERED: POTASSIUM CHLORIDE CRTAB 20 MEQ TABCR PO STA (14:22)
--- NOTE | 2021-04-04 14:23 | Cardiology Progress Note ---
Date of Service April 04, 2021 Assessment & Plan (1) Chronic combined systolic and diastolic CHF (congestive heart failure): (2) Atrial flutter: (3) Acute on chronic kidney failure: Plan: Creatinine continues to trend toward improvement. Continue furosemide 60 mg IV twice daily. Transaminases improving with ongoing diuretic therapy. Supplement potassium for hypokalemia, having had elevated potassium on presentation. At the time of his recent discharge earlier this month he was to take torsemide 20 mg tablets, 2 tablets 2 times per day. He has a longstanding history of having difficulty with tolerating loop diuretic therapy due to orthostatic hypotension. He has done well with taking an occasional dose of metolazone, and this likely needs to be reinitiated at time of discharge. As noted, prognosis poor, likely needs consideration of placement, weak, unable to perform ADLs. Admission and Anticipated Discharge Date Admission Date: March 30, 2021 Subjective Patient seen in follow-up. Enjoying his lunchtime meal. No acute complaints. Ongoing lower extremity edema. Telemetry reveals rate controlled atrial fibrillation/flutter in the 80s. Physical Exam Physical Exam: Temp Pulse Resp BP Pulse Ox 36.6 C 69 18 106/69 97 04/04/21 12:00 04/04/21 12:00 04/04/21 12:00 04/04/21 12:00 04/04/21 12:00 Constitutional: Chronically ill in appearance, cachectic Respiratory: Decreased breath sounds bilaterally at the bases, no rales rhonchi or wheezing Cardiovascular: Extremities: + edema (2+ pitting edema) Irregular rhythm, 1/6 systolic murmur Gastrointestinal (Abdomen): normal bowel sounds, soft, nontender, no hepatosplenomegaly Results & Data ([facility]) Vital Signs (Past 12 Hours) Vital Signs Temp Pulse Resp BP BP Pulse Ox 04/04/21 12:00 36.6 C 69 18 106/69 97 04/04/21 08:00 36.6 C 67 18 102/64 96 04/04/21 04:34 36.5 C 58 L 16 118/88 98 Laboratory Results Cardiac Enzymes 04/04/21 Range/Units 07:27 AST 115 H (15-37) U/L Comprehensive Metabolic Panel 04/04/21 Range/Units 07:27 Sodium 143 (136-145) mmol/L Potassium 3.3 L D (3.5-5.1) mmol/L Chloride 103 (98-107) mmol/L Carbon Dioxide 30 (21-32) mmol/L BUN 45 H (7-18) mg/dl Creatinine 1.84 H D (0.6-1.4) mg/dl Glucose 151 H (70-99) mg/dl Calcium 8.3 L (8.5-10.1) mg/dl AST 115 H (15-37) U/L ALT 247 H (12-78) U/L Alkaline Phosphatase 169 H (45-117) U/L Total Protein 6.1 L (6.4-8.2) gm/dl Albumin 2.9 L (3.4-5.0) gm/dl Intake and Output 04/03/21 04/04/21 04/04/21 22:59 06:59 14:59 Intake Total 250 / 710 Output Total 1500 / 1800 Balance 250 / -1090 -1500 / -1090 Intake: Oral 250 / 710 Output: Urine 100 / 100 Urine Amount (Catheter) 1400 / 1700 Vo/Indwelling 1400 / 1700 Other: Weight 76.9 kg Weight Measurement Method Built in [facility]
[2021-04-04] MEDS: BENZONATATE 100 MG CAPSULE PO PRN (14:44)
[2021-04-04] MEDS: LIDOCAINE 5% 1 PATCH TD SCH (17:05)
[2021-04-04] MEDS: cephALEXin 500 MG CAP PO SCH (20:57)
--- NOTE | 2021-04-04 22:34 | Hospitalist Progress Note ---
Date of Service April 04, 2021 Assessment & Plan (1) Volume overload: (2) Acute on chronic kidney failure: (3) Hyperkalemia: (4) Cardiac amyloidosis: (5) Chronic combined systolic and diastolic CHF (congestive heart failure): (6) Pleural effusion, right: (7) Diabetes mellitus, type II: (8) Paroxysmal atrial fibrillation: (9) Elevated troponin: Plan: This is an 80yo M with a complex medical history of systolic and diastolic CHF with EF <20%, amyloid cardiomyopathy, CKD III-IV, paroxysmal atrial fibrillation on eliquis, dual-chamber ICD, bicuspid aortic valve, mild aortic valve stenosis, HTN, DM type II, history of SVT, failed back surgery syndrome, narcolepsy and other medical problems listed below who presents after multiple falls at home in the past few days. Volume overload in setting of decompensated combined diastolic and systolic CHF, persistent moderate right pleural effusion, worsening renal function In setting of advanced combined CHF and amyloid cardiomyopathy with EF<20%, declining renal function and now with hepatic congestion TTE from 03/02/21 with EF <20%, severe LVH End Stage CHF 2/2 cardiac amyloidosis H/o Rt thoracentesis 03/10 - 1 L transudative fluid removed. CXR today with mild interval worsening/redistribution of the right pleural effusion -- negative 6 L fluid balance so far -- continue Lasix 60mg IV bid Nephro and Cardiology SVC consulted Repeat chest x-ray: 1. Interval improvement in the small to moderate right pleural effusion and right basilar densities. 2. Stable cardiomegaly with mild central pulmonary vascular congestion. Acute renal Failure on CKD 3-4 Recent baseline Cr ~ 2, Cr of 4.71on admission Torsemide dose increased to 60mg BID on 03/24 -- crea improving from 4.7 to 3 to 1.8 -- monitor while on Lasix Nephrology on board Hyperkalemia K of 5.7 on admission Recently started on potassium supplements on previous admission - will hold Given calcium gluconate, d50 and insulin EKG without acute abnormalities -- K 3.3 replaced Transaminitis Congestive Hepatopathy Tbili 2.4, AST 420, ALT 297, alk phos 228 INR 1.9 Evidence of hepatic congestion on CT abd/pelvis in setting of advanced CHF, renal failure -- LFTs slightly improving INR 1.4 Deconditioning PT/OT evaluation Would benefit from placement Fall precautions, CM consult, palliative consult Persistent Atrial fibrillation/flutter Rate controlled, on beta-teetee Eliquis for stroke prophylaxis Dose reduced to 2.5 mg BID for poor renal clearance Troponin elevation Troponin 0.251 initially in setting of CKD, appears to be chronically elevated No chest pain or acute EKG changes Amyloid cardiomyopathy Advanced stage causing severe restrictive cardiomyopathy with decompensated CHF, overall prognosis remains poor Hyperglycemia Last A1C of 6.2, on sliding scale inpatient with BSG AC HS BSGs better DVT Ppx: Eliquis Code status: DNR/DNI PCP: Barbara Dispo: Pending PT OT evaluation May need senior living facility Admission and Anticipated Discharge Date Admission Date: March 30, 2021 Subjective Follow-up for CHF exacerbation, etc. Seen resting in bed, comfortable, no distress No chest pain, palpitations, dizziness No leg pain No other symptoms Review of Systems Review of Systems: all noted and negative except for above Physical Exam Physical Exam: General- oriented x 3, not in distress, speaks in sentences with no effort or accessory muscle use Eyes- anicteric Neck- no JVD Lungs-positive decreased breath sounds on the right, clear on the left No wheezing Heart- normal rate, irregularly irregular rhythm; no murmurs Abdomen- normal bowel sounds, nondistended, soft, nontender Extremities- no pretibial edema, no calf tenderness Neuro- alert, oriented x 3; no gross focal neurologic deficits Skin- warm & dry Results & Data Results & Data ([facility]) Vital Signs (Past 12 Hours) Vital Signs Temp Pulse Pulse Resp BP Pulse Ox 04/04/21 19:22 36.9 C 102 H 18 106/70 94 04/04/21 17:53 36.3 C L 82 22 104/66 98 04/04/21 16:00 83 04/04/21 12:00 36.6 C 69 18 106/69 97 all noted and reviewed including below
[2021-04-05] MEDS: FUROSEMIDE 60 MG in SYRINGE 0 ML IV SCH ×2 (06:09→21:01)
[2021-04-05] MEDS: cephALEXin 500 MG CAP PO SCH ×2 (08:01→21:02)
[2021-04-05] MEDS: INSULIN ASPART 100 UNITS/ML 3 ML PEN SC SCH ×4 (08:01→21:05)
[2021-04-05] MEDS: PANTOprazole 40 MG TAB PO SCH ×2 (08:02→21:03)
[2021-04-05] MEDS: METHOCARBAMOL 500 MG TABLET PO SCH ×2 (08:02→21:03)
[2021-04-05] MEDS: APIXABAN 2.5 MG TAB PO SCH ×2 (08:02→21:01)
[2021-04-05] MEDS: METOPROLOL SUCC 25MG EXT REL TAB PO SCH ×2 (08:02→21:02)
[2021-04-05] MEDS: AMIODARONE 200 MG TAB PO SCH (08:03)
[2021-04-05] MEDS: CALCIUM 600MG + VIT D 400 IU TAB PO SCH (08:03)
[2021-04-05] MEDS: GLUCOSAMINE SULFATE 500 MG CAP PO SCH (08:03)
[2021-04-05] MEDS: GABAPENTIN 400 MG CAP PO SCH (08:03)
[2021-04-05 08:13] LABS: Albumin Level 2.9 gm/dl (3.4-5.0); BUN Creatinine Ratio 23.3 (10-20); Calcium 8.2 mg/dl (8.5-10.1); Creatinine Clr Calc Pharmacy 26.9 ml/min; Est GFR (African American) 39.2 ml/min; Est GFR (Non-African American) 33.9 ml/min; Potassium 3.5 mmol/L (3.5-5.1)
[2021-04-05 08:16] LABS: Albumin Globulin Ratio 0.9 (0.9-2); Bilirubin,Total 2.4 mg/dl (0.2-1); Globulin 3.3 gm/dl (2.5-4.0); Total Protein 6.2 gm/dl (6.4-8.2)
[2021-04-05] MEDS: POTASSIUM CHLORIDE CRTAB 20 MEQ TABCR PO SCH ×2 (12:06→21:07)
--- NOTE | 2021-04-05 14:23 | Cardiology Progress Note ---
Date of Service April 05, 2021 Assessment & Plan (1) Chronic combined systolic and diastolic CHF (congestive heart failure): (2) Atrial flutter: (3) Acute on chronic kidney failure: Plan: Patient has been on IV furosemide 60 mg twice daily for 5 days. Creatinine of 4.7 has trended down to 1.84 yesterday and today. Still has significant lower extremity edema. We will discontinue furosemide after this evening, and start oral torsemide, prior dose 20 mg twice daily in the a.m. tomorrow 04/06/2021. Along with this will start metolazone 2.5 mg daily in the morning, which the patient has tolerated well, with excellent results as an outpatient from an edema standpoint, however very difficult to tolerate with regards to orthostatic hypotension. I think now is the time to try to get him on an oral regimen so that we can gauge the success. Tentative plan is for the patient to go to [facility]. Previously expressed to the patient that I think he would need permanent placement given his poor prognosis, generalized weakness, subtle decline in his cognitive status, and my perceived inability for him to perform his activities of daily living independently. If he is not institutionalized, he will need significant help at home. Admission and Anticipated Discharge Date Admission Date: March 30, 2021 Subjective No acute complaints. Ongoing easy fatigability. Telemetry reveals atrial fibrillation/flutter in the range of 80 to 110 bpm. Review of Systems Review of Systems: All systems reviewed & are unremarkable except as noted in HPI & below Physical Exam Physical Exam: Temp Pulse Resp BP Pulse Ox 36.6 C 69 18 106/69 97 04/04/21 12:00 04/04/21 12:00 04/04/21 12:00 04/04/21 12:00 04/04/21 12:00 Cardiovascular: Extremities: + edema (2+ pitting edema) Gastrointestinal (Abdomen): normal bowel sounds, soft, nontender, no hepatosplenomegaly Results & Data ([facility]) Vital Signs (Past 12 Hours) Vital Signs Temp Pulse Pulse Resp BP BP Pulse Ox 04/05/21 12:47 36.4 C L 82 17 96/64 L 94 04/05/21 08:23 36.4 C L 72 18 107/73 93 04/05/21 08:00 72 04/05/21 04:14 36.9 C 76 20 101/75 93
[2021-04-05] MEDS ORDERED: TORSEMIDE 10 MG TAB PO SCH (17:00)
[2021-04-05] MEDS: LIDOCAINE 5% 1 PATCH TD SCH (17:10)
--- NOTE | 2021-04-05 18:27 | Hospitalist Progress Note ---
Date of Service April 05, 2021 Assessment & Plan (1) Volume overload: (2) Acute on chronic kidney failure: (3) Hyperkalemia: (4) Cardiac amyloidosis: (5) Chronic combined systolic and diastolic CHF (congestive heart failure): (6) Pleural effusion, right: (7) Diabetes mellitus, type II: (8) Paroxysmal atrial fibrillation: (9) Elevated troponin: Plan: Patient is an 80 yr male with H/O systolic and diastolic CHF with EF <20%, amyloid cardiomyopathy, CKD III-IV, paroxysmal atrial fibrillation on eliquis, dual-chamber ICD, bicuspid aortic valve, mild aortic valve stenosis, HTN, DM type II, history of SVT, failed back surgery syndrome, narcolepsy and other medical problems listed below who presents after multiple falls at home in the past few days. 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 S/P Right thoracentesis on 03/10/21: 1 L transudative fluid removed IV Lasix 60mg IV bid>> transition to torsemide 20 mg twice daily tomorrow Also plan to start metolazone 2.5 mg daily Appreciate cardiology input Monitor I's and O's, daily weight, fluid restriction Needs follow-up with cardiology upon discharge Acute renal Failure on CKD 3-4 Recent baseline Cr ~ 2, Cr of 4.71on admission Cr:4.7>1.8 monitor renal function Nephrology on board Hyperkalemia K of 5.7 on presentation Potassium 3.5 today Monitor potassium levels while on supplements Transaminitis Congestive Hepatopathy Tbili 2.4, AST 420, ALT 297, alk phos 228 INR 1.9>1.4 Evidence of hepatic congestion on CT abd/pelvis in setting of advanced CHF, bushra l failure LFTs improving Monitor Deconditioning PT/OT evaluation Would benefit from Rehab placement Fall precautions, CM consult Palliative consulted Persistent Atrial fibrillation/flutter On Eliquis for stroke prophylaxis Dose reduced to 2.5 mg BID for poor renal clearance Continue amiodarone, Metoprolol Troponin elevation Troponin 0.251 initially in setting of CKD, appears to be chronically elevated No chest pain or acute EKG changes Amyloid cardiomyopathy Advanced stage causing severe restrictive cardiomyopathy with decompensated CHF, overall prognosis remains poor Hyperglycemia Last A1C of 6.2, on sliding scale inpatient with BSG AC HS BSGs better DVT Px: Eliquis Code status: DNR/DNI Admission and Anticipated Discharge Date Admission Date: March 30, 2021 Subjective Patient is seen and examined at bedside States having minimal cough Gets easily tired Offers no other complaints Denies chest pain, dyspnea, dizziness Review of Systems Review of Systems: All systems reviewed & are unremarkable except as noted in Subjective Physical Exam Physical Exam: Physical Exam: Vitals signs as noted above General Appearance: Elderly, chronic ill appearing, no apparent distress Head: normocephalic, Atraumatic Eyes: normal inspection, EOMI Neck: supple, Trachea midline Respiratory/Chest: Decrease breath sounds, CTA, +Pacer Cardiovascular: S1, S2, +murmur Abdomen/GI:Soft, Non tender, +distended, Bowel sounds present Extremities/Musculoskeletal:normal inspection, 3+ B/L LE edema Neurologic/Psych:AAOX3, grossly no focal neurological deficits Skin: normal color, warm Results & Data Results & Data ([facility]) Vital Signs (Past 12 Hours) Vital Signs Temp Pulse Pulse Resp BP BP Pulse Ox 04/05/21 16:24 36.4 C L 90 19 111/81 96 04/05/21 16:00 87 04/05/21 12:47 36.4 C L 82 17 96/64 L 94 04/05/21 08:23 36.4 C L 72 18 107/73 93 04/05/21 08:00 72 Laboratory Results [facility] 04/05/21 07:13 Sodium 144 Potassium 3.5 Chloride 103 Carbon Dioxide 33 H BUN 43 H Creatinine 1.84 H Glucose 132 H Calcium 8.2 L Liver Function 04/05/21 Range/Units 07:13 Total Bilirubin 2.4 H (0.2-1) mg/dl AST 80 H (15-37) U/L ALT 202 H (12-78) U/L Alkaline Phosphatase 167 H (45-117) U/L Albumin 2.9 L (3.4-5.0) gm/dl
[2021-04-06 07:50] LABS: Albumin Globulin Ratio 0.9 (0.9-2); Albumin Level 2.7 gm/dl (3.4-5.0); Bilirubin,Total 2.3 mg/dl (0.2-1); Calcium 8.4 mg/dl (8.5-10.1); Creatinine Clr Calc Pharmacy 34.2 ml/min; Est GFR (African American) 40.8 ml/min; Est GFR (Non-African American) 35.2 ml/min; Globulin 3.1 gm/dl (2.5-4.0); Magnesium 2.4 mg/dl (1.8-2.4); Potassium 4.1 mmol/L (3.5-5.1); Total Protein 5.8 gm/dl (6.4-8.2)
[2021-04-06] MEDS: INSULIN ASPART 100 UNITS/ML 3 ML PEN SC SCH ×4 (08:08→20:16)
[2021-04-06] MEDS: CALCIUM 600MG + VIT D 400 IU TAB PO SCH (08:10)
[2021-04-06] MEDS: APIXABAN 2.5 MG TAB PO SCH ×2 (08:10→20:08)
[2021-04-06] MEDS: cephALEXin 500 MG CAP PO SCH ×2 (08:10→20:10)
[2021-04-06] MEDS: GABAPENTIN 400 MG CAP PO SCH (08:11)
[2021-04-06] MEDS: AMIODARONE 200 MG TAB PO SCH (08:11)
[2021-04-06] MEDS: GLUCOSAMINE SULFATE 500 MG CAP PO SCH (08:11)
[2021-04-06] MEDS: METHOCARBAMOL 500 MG TABLET PO SCH ×2 (08:12→20:11)
[2021-04-06] MEDS: PANTOprazole 40 MG TAB PO SCH ×2 (08:12→20:12)
[2021-04-06] MEDS: metOLazone 2.5 MG TABLET PO SCH (08:12)
[2021-04-06] MEDS: METOPROLOL SUCC 25MG EXT REL TAB PO SCH ×2 (08:12→20:11)
[2021-04-06] MEDS: POTASSIUM CHLORIDE CRTAB 20 MEQ TABCR PO SCH ×2 (08:15→20:13)
[2021-04-06] MEDS: TORSEMIDE 10 MG TAB PO SCH ×2 (08:16→17:09)
--- NOTE | 2021-04-06 15:00 | Cardiology Progress Note ---
Date of Service April 06, 2021 Assessment & Plan (1) Chronic combined systolic and diastolic CHF (congestive heart failure): (2) Atrial flutter: (3) Acute on chronic kidney failure: Plan: Patient was transitioned to oral torsemide 20 mg twice daily, metolazone 2.5 mg daily in the morning this morning, 04/06/2021. 2.3 L of urine output noted thus far. Remove Vo catheter. Creatinine stable at 1.78, better than his recent baseline of 2-3 milligrams per deciliter. Diuretic and cardiomyopathy medication doses limited due to relative hypotension but systolic blood pressure around 100 has been his recent baseline. Working on completing assistance form to obtain Vyndamax , which he has not been able to afford right now due to a prohibitively costly co-pay. Admission and Anticipated Discharge Date Admission Date: March 30, 2021 Subjective Patient seen. No acute complaints. In the process of having his left upper extremity IV replaced. Vo catheter remains in place. Telemetry reveals atrial fibrillation/flutter in the 80s. Physical Exam Physical Exam: Temp Pulse Resp BP Pulse Ox 36.6 C 69 18 106/69 97 04/04/21 12:00 04/04/21 12:00 04/04/21 12:00 04/04/21 12:00 04/04/21 12:00 Constitutional: + ill appearing (Chronically ill in appearance without acute distress, cachectic) Respiratory: Auscultation: + diminished lung sounds (Decreased breath sounds bilaterally at the bases) Cardiovascular: Rate/Rhythm: + irregularly irregular Heart Sounds: + murmur (1/6 systolic murmur) Extremities: + edema (2+ pitting edema) Gastrointestinal (Abdomen): normal bowel sounds, soft, nontender, no hepatosplenomegaly Neurologic: Follows commands, no focal deficit, tends to get confused in the afternoons Results & Data ([facility]) Vital Signs (Past 12 Hours) Vital Signs Temp Pulse Pulse Resp BP Pulse Ox 04/06/21 11:50 36.4 C L 66 19 107/72 96 04/06/21 08:00 76 04/06/21 07:50 36.5 C 84 19 101/66 94 04/06/21 03:15 36.4 C L 69 16 97/64 L 92
[2021-04-06] MEDS ORDERED: DEXTROMETHORPHAN POLYMR COMPLX 30 MG/5 ML UDP PO PRN (16:19)
[2021-04-06] MEDS: LIDOCAINE 5% 1 PATCH TD SCH (17:09)
--- NOTE | 2021-04-06 18:29 | Hospitalist Progress Note ---
Date of Service April 06, 2021 Assessment & Plan (1) Volume overload: (2) Acute on chronic kidney failure: (3) Hyperkalemia: (4) Cardiac amyloidosis: (5) Chronic combined systolic and diastolic CHF (congestive heart failure): (6) Pleural effusion, right: (7) Diabetes mellitus, type II: (8) Paroxysmal atrial fibrillation: (9) Elevated troponin: Plan: Patient is an 80 yr male with H/O systolic and diastolic CHF with EF <20%, amyloid cardiomyopathy, CKD III-IV, paroxysmal atrial fibrillation on eliquis, dual-chamber ICD, bicuspid aortic valve, mild aortic valve stenosis, HTN, DM type II, history of SVT, failed back surgery syndrome, narcolepsy and other medical problems listed below who presents after multiple falls at home in the past few days. 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 S/P Right thoracentesis on 03/10/21: 1 L transudative fluid removed IV Lasix 60mg IV bid>> transition to torsemide 20 mg twice daily Also plan to start metolazone 2.5 mg daily Appreciate cardiology input Monitor I's and O's, daily weight, fluid restriction Needs follow-up with cardiology upon discharge UTI-POA Urine culture: Citrobacter, E. coli Received 3-day course of Rocephin Currently on Keflex Cough We will repeat chest x-ray tomorrow Antitussives as needed On Keflex for UTI Acute renal Failure on CKD 3-4 Recent baseline Cr ~ 2, Cr of 4.71on admission Cr:4.7>1.8> 1.78 monitor renal function Nephrology on board Hyperkalemia K of 5.7 on presentation Potassium 4.1 Monitor potassium levels while on supplements Transaminitis Congestive Hepatopathy Tbili 2.4, AST 420, ALT 297, alk phos 228 INR 1.9>1.4 Evidence of hepatic congestion on CT abd/pelvis in setting of advanced CHF, renal failure LFTs improving Monitor Deconditioning PT/OT evaluation Would benefit from Rehab placement Fall precautions, CM consult Palliative consulted Persistent Atrial fibrillation/flutter On Eliquis for stroke prophylaxis Eliquis dose reduced to 2.5 mg BID for poor renal clearance Continue amiodarone, Metoprolol Troponin elevation Troponin 0.251 initially in setting of CKD, appears to be chronically elevated No chest pain or acute EKG changes Amyloid cardiomyopathy Advanced stage causing severe restrictive cardiomyopathy with decompensated CHF, overall prognosis remains poor Hyperglycemia Last A1C of 6.2, on sliding scale inpatient with BSG AC HS BSGs better DVT Px: Eliquis Code status: DNR/DNI Admission and Anticipated Discharge Date Admission Date: March 30, 2021 Subjective Patient is seen and examined at bedside States having persistent dry cough Otherwise denies any new complaints Denies chest pain, dyspnea, dizziness Review of Systems Review of Systems: All systems reviewed & are unremarkable except as noted in Subjective Physical Exam Physical Exam: Physical Exam: Vitals signs as noted above General Appearance: Elderly, chronic ill appearing, no apparent distress Head: normocephalic, Atraumatic Eyes: normal inspection, EOMI Neck: supple, Trachea midline Respiratory/Chest: Decrease breath sounds, CTA, +Pacer Cardiovascular: S1, S2, +murmur Abdomen/GI:Soft, Non tender, +distended, Bowel sounds present Extremities/Musculoskeletal:normal inspection, 3+ B/L LE edema Neurologic/Psych:AAOX3, grossly no focal neurological deficits Skin: normal color, warm Results & Data Results & Data ([facility]) Vital Signs (Past 12 Hours) Vital Signs Temp Pulse Pulse Resp BP BP Pulse Ox 04/06/21 11:50 36.4 C L 66 19 107/72 96 04/06/21 08:00 76 04/06/21 07:50 36.5 C 84 19 101/66 94 04/06/21 07:30 36.6 C 69 18 101/70 96 Laboratory Results [facility] 04/06/21 06:53 Sodium 142 Potassium 4.1 D Chloride 105 Carbon Dioxide 29 BUN 41 H Creatinine 1.78 H Glucose 134 H Calcium 8.4 L Liver Function 04/06/21 Range/Units 06:53 Total Bilirubin 2.3 H (0.2-1) mg/dl AST 61 H (15-37) U/L ALT 157 H (12-78) U/L Alkaline Phosphatase 156 H (45-117) U/L Albumin 2.7 L (3.4-5.0) gm/dl
[2021-04-06] MEDS: BENZONATATE 100 MG CAPSULE PO SCH (20:09)
[2021-04-07] MEDS: oxyCODONE HCL IR 5 MG TAB (IMMEDIATE RELEASE) PO PRN ×2 (02:33→20:55)
--- NOTE | 2021-04-07 07:59 | XRay Report ---
XR chest 1V portable HISTORY: 80 years-old Male cough acute cough COMPARISON: Chest radiograph 04/03/2021 TECHNIQUE: Portable AP view of the chest FINDINGS: Cardiac silhouette is enlarged. Left subclavian pacer/AICD. Mildly improved pulmonary vascular conges tion. Layering right pleural effusion with right lung base opacities appear unchanged. No pneumothora x. Dextroscoliosis of the thoracic spine. Surgical anchors of the right humeral head. Bones appear gr ossly intact. IMPRESSION: 1. Cardiomegaly with improved pulmonary vascular congestion. 2. Unchanged layering right pleural effusion with right lung base consolidation. ACT 112: Negative or not required by law. The above report was generated using voice recognition software. It may contain grammatical, syntax o r spelling errors. Electronically signed by: Quentin Phelps M.D. 04/07/2021 7:57 AM
[2021-04-07] MEDS: INSULIN ASPART 100 UNITS/ML 3 ML PEN SC SCH ×4 (08:03→20:17)
[2021-04-07] MEDS: cephALEXin 500 MG CAP PO SCH (08:05)
[2021-04-07] MEDS: METHOCARBAMOL 500 MG TABLET PO SCH ×2 (08:05→20:14)
[2021-04-07] MEDS: METOPROLOL SUCC 25MG EXT REL TAB PO SCH ×3 (08:06→20:27)
[2021-04-07] MEDS: APIXABAN 2.5 MG TAB PO SCH (08:06)
[2021-04-07] MEDS: BENZONATATE 100 MG CAPSULE PO SCH ×2 (08:06→20:11)
[2021-04-07] MEDS: CALCIUM 600MG + VIT D 400 IU TAB PO SCH (08:07)
[2021-04-07] MEDS: AMIODARONE 200 MG TAB PO SCH (08:07)
[2021-04-07] MEDS: PANTOprazole 40 MG TAB PO SCH ×2 (08:08→20:15)
[2021-04-07] MEDS: metOLazone 2.5 MG TABLET PO SCH (08:08)
[2021-04-07] MEDS: GLUCOSAMINE SULFATE 500 MG CAP PO SCH (08:08)
[2021-04-07] MEDS: GABAPENTIN 400 MG CAP PO SCH (08:08)
[2021-04-07] MEDS: TORSEMIDE 10 MG TAB PO SCH ×2 (08:09→20:10)
[2021-04-07] MEDS: POTASSIUM CHLORIDE CRTAB 20 MEQ TABCR PO SCH ×2 (08:12→20:18)
[2021-04-07 08:27] LABS: Albumin Level 3.1 gm/dl (3.4-5.0); BUN Creatinine Ratio 20.4 (10-20); Calcium 8.7 mg/dl (8.5-10.1); Creatinine Clr Calc Pharmacy 27.7 ml/min; Est GFR (African American) 31.6 ml/min; Est GFR (Non-African American) 27.3 ml/min; Magnesium 2.4 mg/dl (1.8-2.4); Potassium 3.5 mmol/L (3.5-5.1)
[2021-04-07 08:32] LABS: Albumin Globulin Ratio 0.8 (0.9-2); Bilirubin,Total 2.6 mg/dl (0.2-1); Globulin 3.7 gm/dl (2.5-4.0); Total Protein 6.9 gm/dl (6.4-8.2)
[2021-04-07] MEDS: DOXYCYCLINE HYCLATE 100 MG CAP PO SCH ×2 (10:15→20:13)
--- NOTE | 2021-04-07 10:59 | Gastrointestinal Consultation ---
Date of Consultation April 07, 2021 Assessment & Plan (1) Elevated LFTs: Pt is a 80 y/o male seen for elevated LFTs. Previous workup including autoimmune, iron storage, hepatitis b, c negative. He does have fatty liver on imaging; LFTs normalized since off Amiodarone & Statin last year. He has hx of cardiac amyloidosis, CHF w EF <20%, on presentation currently noted to be in JOO and had volume overload s/p R thoracentesis and diuretic management. LFTs improved since admission. Suspect LFT elevation is mostly related to congestive hepatopathy vs Amiodarone use. He is not showing s/s of liver disease decompensation. Would recommend f/u in GI clinic after he is DC'd to arrange outpt EUS liver bx if he is agreeable. Noted gallbladder u/s previously ordered, will f/u on this as well. Supervising Physician Co-Signing Physician Notes I performed a history and physical examination of the patient today, including specifically on physical exam - soft abdomen. I have discussed the patient's management with the advanced practitioner. Please refer to the nurse practitioner's note for the documented findings and plan of care. Likely congestive hepatopathy. Plan for EUS guided Liver Bx as OP. Recall GI if needed. History of Present Illness Reason for Consultation: Transaminitis Requesting Physician: Dr. Edison Jenkins Attending Physician: Dr. Mario Chaney History of Present Illness Pt is a 80 y/o male currently admitted after a fall, JOO, seen for transaminitis. He has a complex PMHx including CHF w EF <20%, amyloid cardiomyopathy, CKD III-IV, paroxysmal atrial fibrillation on eliquis, dual- chamber ICD, bicuspid aortic valve, mild aortic valve stenosis, HTN, DM type II, history of SVT, fatty liver on imaging. He was seen previously in GI clinic last year for elevated LFTs. Autoimmune and iron overload workup negative. His LFTs are normalized when he was off Amiodarone and statin. Plans for EUS liver bx at that time had been deferred. He currently has volume overload s/p recent thoracentesis for R pleural effusion, on diuretics and is taking Amiodarone again. Noted his LFTs since admission is improving. He denies jaundice, CP, SOB, abd pain, n/v, changes in his bowel habits, increased leg edema. Denies APAP, ETOH, tobacco, illicit drugs, herbal supplements. Denies family hx of liver dz, AIH Allergies Allergy/AdvReac Type Severity Reaction Status Date / Time No Known Allergies Allergy Mild Verified 03/30/21 15:12 Home Medications Medication Instructions Recorded Confirmed Type glucosamine-chondroitin 500 mg-400 2 tab PO QAM 09/17/18 03/30/21 History mg tablet (Cidaflex) metoprolol succinate 25 mg 25 mg PO BID 05/05/19 03/30/21 History tablet,extended release 24 hr (Toprol XL) methocarbamol 500 mg tablet 500 mg PO BID #90 tab 05/17/19 03/30/21 History oxycodone 5 mg tablet (Roxicodone) 5 mg PO Q6H PRN 09/17/19 03/30/21 History amiodarone 200 mg tablet 200 mg PO QAM 02/09/20 03/30/21 History apixaban 2.5 mg tablet (Eliquis) 2.5 mg PO Q12H #60 tab 02/09/20 03/30/21 Rx calcium carbonate 500 mg (1,250 1 tab PO DAILY 11/14/20 03/30/21 History mg)-vitamin D3 200 unit tablet (Calcium 500 + D) gabapentin 400 mg capsule 400 mg PO BID 11/14/20 03/30/21 History green tea extract 375 mg capsule 0 mg PO DAILY 11/14/20 03/30/21 History omeprazole 20 mg capsule,delayed 20 mg PO BID 11/14/20 03/30/21 History release patisiran (lipid complex) 2 mg/mL 0 mg IV .[id number] 11/14/20 03/30/21 History intravenous solution pen needle,diabetic, disp unit 32 #100 ea 11/17/20 03/01/21 Rx gauge x 32", remover and disposal unit insulin glargine 100 unit/mL (3 20 unit SC DAILY 03/01/21 03/30/21 History mL) subcutaneous pen (Lantus Solostar U-100 Insulin) potassium chloride 20 mEq 20 meq PO BID 30 Days #60 tab 03/14/21 03/30/21 Rx tablet,extended release(part/cryst) (Klor-Con M) cetirizine 10 mg tablet 10 mg PO DAILY PRN 03/30/21 03/30/21 History ergocalciferol (vitamin D2) 1,250 1,250 mcg PO MONTHLY 03/30/21 03/30/21 History mcg (50,000 unit) capsule (Vitamin D2) Patient History Medical History Atrial fibrillation "A.Flutter" onset March 2019 BPH (benign prostatic hyperplasia) Cardiac amyloidosis Chronic back pain Chronic combined systolic and diastolic CHF (congestive heart failure) CKD (chronic kidney disease) stage 4, GFR 15-29 ml/min Congestive heart failure Degenerative disc disease Diabetes mellitus, type II monitoring higher glucose lab testing, possibly related to medication changes in 2019. to have rechecked. following with PCP. Diverticular disease GERD (gastroesophageal reflux disease) History of cardioversion 05/08/19 DONE AT [facility] History of recent fall 07/2020, treated at [facility] Emergency Room. unsure why he fell, may have "passed out?". broken wrist-->casted, no surgical intervention. Hx of atrial flutter 2015 [facility] per medical record Hyperlipidemia Hypertension ICD (implantable cardioverter-defibrillator) in place IMPLANTED 05/30 [employer] (DR. BRYANT) On anticoagulant therapy Osteoarthritis Scoliosis Spinal stenosis Surgical History History of appendectomy History of arthroscopy RT SHOULDER History of back surgery LUMBAR SPINE History of cardiac cath SUMMER 2017 - [facility] - REASON? - NO STENTS/ANGIOPLASTY - DR. BRYANT History of cardioversion 2018 & 01/2020 ([facility]) History of carpal tunnel release BL History of cataract surgery RT/LEFT History of colonoscopy History of esophagogastroduodenoscopy (EGD) History of tooth extraction S/P cardiac pacemaker procedure ICD placed 2018 (Dr Bryant) S/P epidural steroid injection Lumbar Family History Mother FHx: breast cancer Grandmother (Paternal) FHx: stroke Grandmother (Paternal) FHx: myocardial infarction Father Kidney disease ESRD due to DM. 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 How many Children do You have: 1 Feels Safe at Home: Yes Assistive Devices: Walker Review of Systems Review of Systems: All systems reviewed & are unremarkable except as noted in HPI & below Physical Exam Constitutional: WD/WN, vitals as above well groomed, cooperative and comfortable Eyes: PERRL, conjunctivae normal, anicteric sclerae ENMT: external ear and nose normal, oropharynx normal Respiratory: normal respiratory effort, lungs clear to auscultation Cardiovascular: RRR, no murmur, no edema Gastrointestinal (Abdomen): normal bowel sounds, soft, nontender, no hepatosplenomegaly Skin: no rashes, warm and dry no jaundice Neurologic: Motor/Sensory: no asterixis Psychiatric: A+Ox3, euthymic affect Lymphatic: no lymphedema Results & Data ([facility]) Vital Signs (Past 12 Hours) Vital Signs Temp Pulse Pulse Resp BP Pulse Ox 04/07/21 07:51 36.4 C L 70 20 102/70 98 04/07/21 07:22 75 04/07/21 04:39 36.5 C 76 18 94/56 L 91 04/06/21 23:24 36.5 C 88 18 101/66 94
--- NOTE | 2021-04-07 12:36 | Nephrology Progress Note ---
Date of Service April 07, 2021 Assessment & Plan Admission and Anticipated Discharge Date Admission Date: March 30, 2021 Subjective Assessment & Plan (1) Acute on chronic kidney failure: Plan: nonoliguric acute kidney injury stage I on now stage IV chronic kidney disease in the setting of end-stage cardiac amyloidosis. -Renal function seem to fluctuate a lot--creat has been 4 and as low as mid 1. N ow rising again. does have lot of edema. I have no problem in using higher dose of torsemide or iv lasix 80 bid. Continue diuretics per cardiology he will not be a candidate for chronic Dialysis as he is approaching end stage cardiac Dz. Subjective Seen for JOO and CHF. Breathing is better today. Legs are swollen. Making urine but only 700 ml urine yesterday. he papears very weak and barely keeping eyes open. Review of Systems Review of Systems: All other systems were reviewed and negative except as noted in HPI Physical Exam Physical Exam: General exam: Appears comfortable, no acute distress HEENT: Pupils are equal and reactive to light Neck: No JVD, neck is supple trachea is midline Respiratory system: Clear breath sounds bilaterally. Gastrointestinal: Abdomen is soft, non distended, non tender, bowel sounds are present CVS: Regular rate and rhythm. No murmurs, rubs or gallops Musculoskeletal: No joint or muscle tenderness Extremities: Non tender, 1+ edema, peripheral pulses are present Neuro: Oriented, no tremors, no focal neurological deficits Skin: No rashes Results & Data ([facility]) Vital Signs (Past 12 Hours) Vital Signs Temp Pulse Pulse Resp BP Pulse Ox 04/07/21 11:50 36.5 C 82 17 93/62 L 98 04/07/21 07:51 36.4 C L 70 20 102/70 98 04/07/21 07:22 75 04/07/21 04:39 36.5 C 76 18 94/56 L 91
--- NOTE | 2021-04-07 12:37 | Cardiology Progress Note ---
Date of Service April 07, 2021 Assessment & Plan (1) Chronic combined systolic and diastolic CHF (congestive heart failure): (2) Atrial flutter: (3) Acute on chronic kidney failure: Plan: Vo catheter discontinued 04/06/2021, mild blood-tinged urine noted per tika fofana. Creatinine has trended back up to 2.2 having received torsemide 20 mg twice daily and metolazone 2.5 mg daily on 04/06 and 04/07. We will hold metolazone for now, but he has responded well to this in the past, and I think we are going to have to put up with some degree of azotemia, noting that overall his renal function seems to be better we are more aggressive with diuretic therapy. Would consider metolazone 2.5 mg in the morning 2 days/week as an outpatient perhaps on Mondays and . Continue Eliquis 2.5 mg twice daily for stroke prophylaxis, with caution. Working on completing assistance form to obtain Vyndamax , which he has not been able to afford right now due to a prohibitively costly co-pay. Transaminases remain elevated, I think this is likely due to congestive hepatopathy. Continue ongoing amiodarone therapy with caution, as I believe this medicine is necessary from the rate control standpoint. There is not room to uptitrate his metoprolol due to relative low blood pressure, and therefore amiodarone being utilized for this purpose (previously was being used for rhythm control but now rate controlled). Overall, patient has a poor prognosis with what is felt to be end-stage amyloid cardiomyopathy. He is tentatively to be transferred to rehabilitation when medically ready when a bed is available, but I feel that he will likely need permanent placement. Admission and Anticipated Discharge Date Admission Date: March 30, 2021 Subjective Patient walked with use of walker for physical therapy this morning and made reasonable progress. Telemetry reveals atrial fibrillation/flutter in the 80s. Physical Exam Physical Exam: Temp Pulse Resp BP Pulse Ox 36.6 C 69 18 106/69 97 04/04/21 12:00 04/04/21 12:00 04/04/21 12:00 04/04/21 12:00 04/04/21 12:00 Constitutional: + ill appearing (Chronically ill in appearance without acute distress, cachectic) Respiratory: Auscultation: + diminished lung sounds (Decreased breath sounds bilaterally at the bases) Cardiovascular: Rate/Rhythm: + irregularly irregular Heart Sounds: + murmur (1/6 systolic murmur) Extremities: + edema (2+ pitting edema) Gastrointestinal (Abdomen): normal bowel sounds, soft, nontender, no hepatosplenomegaly Results & Data ([facility]) Vital Signs (Past 12 Hours) Vital Signs Temp Pulse Pulse Resp BP Pulse Ox 04/07/21 11:50 36.5 C 82 17 93/62 L 98 04/07/21 07:51 36.4 C L 70 20 102/70 98 04/07/21 07:22 75 04/07/21 04:39 36.5 C 76 18 94/56 L 91
--- NOTE | 2021-04-07 14:49 | Ultrasound Report ---
ABDOMINAL ULTRASOUND, RIGHT UPPER QUADRANT HISTORY: Transaminitis. COMPARISON: Abdomen and pelvis CT 03/30/2021. FINDINGS: Pancreas: The pancreatic head is obscured by overlying bowel gas. The remaining portions of the pancr eas are within normal limits. Liver: The liver is echogenic consistent with fatty change. Gallbladder: The gallbladder remains distended. There is trace pericholecystic fluid, unchanged. The gallbladder wall is borderline thickened up to 3 mm. Trace sludge within the gallbladder. The technol ogist reported patient's tenderness while scanning over the gallbladder. CBD: 4 mm. Right kidney: No hydronephrosis. Miscellaneous: Small right pleural effusion. IMPRESSION: 1. Distended gallbladder with trace pericholecystic fluid and trace sludge. Gallbladder wall remains borderline thickened. This is unchanged compared to the prior abdomen and pelvis CT and could be due to the patient's diffuse edematous state. However, the technologist reported patient tenderness while scanning over the gallbladder. Therefore, a developing cholecystitis cannot be excluded. A follow-up nuclear medicine HIDA scan could be performed for further evaluation. 2. Small right pleural effusion. 3. Hepatic steatosis. ACT 112: Negative or not required by law. Electronically signed by: Felix Hall M.D. 04/07/2021 2:48 PM
--- NOTE | 2021-04-07 15:47 | Hospitalist Progress Note ---
Date of Service April 07, 2021 Assessment & Plan (1) Volume overload: (2) Acute on chronic kidney failure: (3) Hyperkalemia: (4) Cardiac amyloidosis: (5) Chronic combined systolic and diastolic CHF (congestive heart failure): (6) Pleural effusion, right: (7) Diabetes mellitus, type II: (8) Paroxysmal atrial fibrillation: (9) Elevated troponin: Plan: Patient is an 80 yr male with H/O systolic and diastolic CHF with EF <20%, amyloid cardiomyopathy, CKD III-IV, paroxysmal atrial fibrillation on eliquis, dual-chamber ICD, bicuspid aortic valve, mild aortic valve stenosis, HTN, DM type II, history of SVT, failed back surgery syndrome, narcolepsy and other medical problems listed below who presents after multiple falls at home in the past few days. 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 S/P Right thoracentesis on 03/10/21: 1 L transudative fluid removed IV Lasix 60mg IV bid>> transition to torsemide 20 mg twice daily Appreciate cardiology input Monitor I's and O's, daily weight, fluid restriction Needs follow-up with cardiology upon discharge Hold Metolazone given rise in Cr Consider Metolazone 2 times/Week upon discharge Poor Prognosis Hematuria Hold Eliquis Consulted Urology Monitor H&H UTI-POA Urine culture: Citrobacter, E. coli Received 3-day course of Rocephin Currently on Keflex Cough CXR right basal consolidation Antitussives as needed On Keflex for UTI Added Doxy Acute renal Failure on CKD 3-4 Recent baseline Cr ~ 2, Cr of 4.71on admission Cr:4.7>1.8> 1.78 monitor renal function Nephrology on board Hyperkalemia K of 5.7 on presentation Potassium 3.5 today 1 Monitor potassium levels while on supplements Transaminitis Congestive Hepatopathy Gall Bladder USD:Distended gallbladder with trace pericholecystic fluid and trace sludge. Gallbladder wall remains borderline thickened. This is unchanged compared to the prior abdomen and pelvis CT and could be due to the patient's diffuse edematous state. However, the technologist reported patient tenderness while scanning over the gallbladder. Therefore, a developing cholecystitis cannot be excluded. A follow-up nuclear medicine HIDA scan could be performed for further evaluation. Small right pleural effusion. Hepatic steatosis. Tbili 2.4, AST 420, ALT 297, alk phos 228 INR 1.9>1.4 Evidence of hepatic congestion on CT abd/pelvis in setting of advanced CHF, renal failure Monitor LFTs Appreciate GI Input Consider HIDA scan if required May need outpatient endoscopic ultrasound liver biopsy. Needs follow-up with GI as outpatient Monitor Deconditioning PT/OT evaluation Would benefit from Rehab placement Fall precautions, CM consult Palliative consulted Persistent Atrial fibrillation/flutter On Eliquis for stroke prophylaxis Eliquis dose reduced to 2.5 mg BID for poor renal clearance Continue amiodarone, Metoprolol Eliquis held due to hematuria Troponin elevation Troponin 0.251 initially in setting of CKD, appears to be chronically elevated No chest pain or acute EKG changes Amyloid cardiomyopathy Advanced stage causing severe restrictive cardiomyopathy with decompensated CHF, overall prognosis remains poor Hyperglycemia Last A1C of 6.2, on sliding scale inpatient with BSG AC HS BSGs better DVT Px: Eliquis held due to hematuria Teds Code status: DNR/DNI Admission and Anticipated Discharge Date Admission Date: March 30, 2021 Subjective Patient is seen and examined at bedside Patient noticed Blood tinged Urine with Clots today Less cough today Discussed with Cardiology and GI today Denies chest pain, dyspnea, dizziness Cr slightly worse today Review of Systems Review of Systems: All systems reviewed & are unremarkable except as noted in Subjective Physical Exam Physical Exam: Physical Exam: Vitals signs as noted above General Appearance: Elderly, chronic ill appearing, no apparent distress Head: normocephalic, Atraumatic Eyes: normal inspection, EOMI Neck: supple, Trachea midline Respiratory/Chest: Decrease breath sounds, CTA, +Pacer Cardiovascular: S1, S2, +murmur Abdomen/GI:Soft, Non tender, +distended, Bowel sounds present Extremities/Musculoskeletal:normal inspection, 3+ B/L LE edema Neurologic/Psych:AAOX3, grossly no focal neurological deficits Skin: normal color, warm Results & Data Results & Data ([facility]) Vital Signs (Past 12 Hours) Vital Signs Temp Pulse Pulse Pulse Resp BP BP 04/07/21 15:21 36.5 C 79 19 106/73 08/27/21 13:18 53 L 100/63 04/07/21 11:50 36.5 C 82 17 93/62 L 04/07/21 07:51 36.4 C L 70 20 102/70 04/07/21 07:22 75 04/07/21 04:39 36.5 C 76 18 94/56 L Pulse Ox 04/07/21 15:21 95 04/07/21 13:18 04/07/21 11:50 98 04/07/21 07:51 98 04/07/21 07:22 04/07/21 04:39 91 Laboratory Results BMP 04/07/21 07:28 Sodium 139 Potassium 3.5 Chloride 101 Carbon Dioxide 30 BUN 45 H Creatinine 2.20 H D Glucose 136 H Calcium 8.7 Liver Function 04/07/21 Range/Units 07:28 Total Bilirubin 2.6 H (0.2-1) mg/dl AST 65 H (15-37) U/L ALT 162 H (12-78) U/L Alkaline Phosphatase 179 H (45-117) U/L Albumin 3.1 L (3.4-5.0) gm/dl
--- NOTE | 2021-04-07 16:51 | Electrocardiogram Report ---
Test Reason : Blood Pressure : / mmHG Vent. Rate : 085 BPM Atrial Rate : 241 BPM P-R Int : 000 ms QRS Dur : 162 ms QT Int : 456 ms P-R-T Axes : 000 -62 104 degrees QTc Int : 542 ms Atrial flutter with variable A-V block Left axis deviation Left bundle branch block Abnormal ECG When compared with ECG of 31-MAR-2021 05:56, No significant change was found Confirmed by Scott Stokes ([id number]) on 04/07/2021 4:51:23 PM Referred By: REFERRED SELF Confirmed By:Scott Stokes
[2021-04-07] MEDS: LIDOCAINE 5% 1 PATCH TD SCH (20:10)
[2021-04-07] MEDS: cephALEXin 250 MG CAP PO SCH (20:14)
[2021-04-07 21:15] LABS: Hematocrit (blood only) 49.7 % (42-52)
--- NOTE | 2021-04-07 22:03 | Urology Consultation ---
Date of Consultation April 07, 2021 Assessment & Plan (1) Hematuria, gross: Patient's hematuria is likely on the basis of previous Vo catheter coupled with his anticoagulation and history of BPH. The hematuria may be related to trauma from the Vo catheter made worse by his anticoagulation. Recommend proceeding as follows: Patient has not demonstrated any precipitous drop in his H&H suggestive of ongoing bleeding. Recommend continue to follow serial labs I discussed with the nurse and recommended perhaps bladder scanning the patient after his next void to ensure he is not retaining urine. If the patient is not retaining urine no other intervention will be required If the patient is retaining urine he may need to have his Vo catheter replaced. History of Present Illness Reason for Consultation: Hematuria Attending Physician: Edison Jenkins MD History of Present Illness This is an 80-year-old male who is admitted to the hospital on 03/30/2021 secondary suffering multiple falls at home. Patient has a diagnosis of chronic systolic and diastolic congestive heart failure with an ejection fraction of 20%. He has amyloid cardiomyopathy and stage IV chronic kidney disease along with paroxysmal atrial fibrillation for which he takes Eliquis. During patient's admission patient was felt to be volume overloaded in the setting of decompensated congestive heart failure. Patient did have a Vo catheter placed during admission. The patient's Vo catheter was discontinued yesterday and shortly after the catheter was discontinued he developed gross hematuria. I discussed with the nurse at bedside and he noted that the patient had some hematuria which appears to have darker blood over the past 24 hours. Patient does take Eliquis which has been placed on hold today. He also notes that the patient appears to have some urinary incontinence with urinary urgency and frequency. I did visit with the patient at the bedside and he notes that he has had this problem before and it resolved without any intervention. At the present time the patient does not report any urgency to urinate. He says that he does not feel as though his bladder is full at the present time. When he does urinate he does feel like he can empty his bladder fully. Further discussion with the nurse revealed that the patient did have some blood clots but again it is. That the patient can empty his bladder. He was in no distress at the time of my interview. Patient did have labs drawn earlier this evening where he was noted to have a hemoglobin of 17.0. His hematocrit was noted to be 49.7. His most recent BUN and creatinine were noted to be 45 and 2.2 which was drawn earlier this morning. This creatinine level is near the patient's baseline. It is noteworthy mention that the patient also had a CAT scan this admission on 03/30/2021. From a urologic perspective this did show distended gallbladder with fullness of bilateral renal collecting systems suggestive of a chronic outlet obstruction from an enlarged prostate gland. Again at the time of my exam the patient is resting comfortably in bed and he was in no distress. Allergies Allergy/AdvReac Type Severity Reaction Status Date / Time No Known Allergies Allergy Mild Verified 03/30/21 15:12 Home Medications Medication Instructions Recorded Confirmed Type glucosamine-chondroitin 500 mg-400 2 tab PO QAM 09/17/18 03/30/21 History mg tablet (Cidaflex) metoprolol succinate 25 mg 25 mg PO BID 05/05/19 03/30/21 History tablet,extended release 24 hr (Toprol XL) methocarbamol 500 mg tablet 500 mg PO BID #90 tab 05/17/19 03/30/21 History oxycodone 5 mg tablet (Roxicodone) 5 mg PO Q6H PRN 09/17/19 03/30/21 History amiodarone 200 mg tablet 200 mg PO QAM 02/09/20 03/30/21 History apixaban 2.5 mg tablet (Eliquis) 2.5 mg PO Q12H #60 tab 02/09/20 03/30/21 Rx calcium carbonate 500 mg (1,250 1 tab PO DAILY 11/14/20 03/30/21 History mg)-vitamin D3 200 unit tablet (Calcium 500 + D) gabapentin 400 mg capsule 400 mg PO BID 11/14/20 03/30/21 History green tea extract 375 mg capsule 0 mg PO DAILY 11/14/20 03/30/21 History omeprazole 20 mg capsule,delayed 20 mg PO BID 11/14/20 03/30/21 History release patisiran (lipid complex) 2 mg/mL 0 mg IV [id number] 11/14/20 03/30/21 History intravenous solution pen needle,diabetic, disp unit 32 #100 ea 11/17/20 03/01/21 Rx gauge x 5/32", remover and disposal unit insulin glargine 100 unit/mL (3 20 unit SC DAILY 03/01/21 03/30/21 History mL) subcutaneous pen (Lantus Solostar U-100 Insulin) potassium chloride 20 mEq 20 meq PO BID 30 Days #60 tab 03/14/21 03/30/21 Rx tablet,extended release(part/cryst) (Klor-Con M) cetirizine 10 mg tablet 10 mg PO DAILY PRN 03/30/21 03/30/21 History ergocalciferol (vitamin D2) 1,250 1,250 mcg PO MONTHLY 03/30/21 03/30/21 History mcg (50,000 unit) capsule (Vitamin D2) Patient History Medical History Atrial fibrillation "A.Flutter" onset March 2019 BPH (benign prostatic hyperplasia) Cardiac amyloidosis Chronic back pain Chronic combined systolic and diastolic CHF (congestive heart failure) CKD (chronic kidney disease) stage 4, GFR 15-29 ml/min Congestive heart failure Degenerative disc disease Diabetes mellitus, type II monitoring higher glucose lab testing, possibly related to medication changes in 2019. to have rechecked. following with PCP. Diverticular disease GERD (gastroesophageal reflux disease) History of cardioversion 05/08/19 DONE AT [facility] History of recent fall 07/2020, treated at [facility] Emergency Room. unsure why he fell, may have "passed out?". broken wrist-->casted, no surgical intervention. Hx of atrial flutter 2015 [facility] per medical record Hyperlipidemia Hypertension ICD (implantable cardioverter-defibrillator) in place IMPLANTED 05/30 [employer] (DR. BRYANT) On anticoagulant therapy Osteoarthritis Scoliosis Spinal stenosis Surgical History History of appendectomy History of arthroscopy RT SHOULDER History of back surgery LUMBAR SPINE History of cardiac cath SUMMER 2017 - [facility] - REASON? - NO STENTS/ANGIOPLASTY - DR. BRYANT History of cardioversion 2018 & 01/2020 ([facility]) History of carpal tunnel release BL History of cataract surgery RT/LEFT History of colonoscopy History of esophagogastroduodenoscopy (EGD) History of tooth extraction S/P cardiac pacemaker procedure ICD placed 2018 (Dr Bryant) S/P epidural steroid injection Lumbar Family History Mother FHx: breast cancer Grandmother (Paternal) FHx: stroke Grandmother (Paternal) FHx: myocardial infarction Father Kidney disease ESRD due to DM. 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 How many Children do You have: 1 Feels Safe at Home: Yes Assistive Devices: Walker Review of Systems Constitutional: no fever and no chills Eyes: no diplopia Ear, Nose, Mouth, Throat: no ear pain and no sore throat Respiratory: no cough Cardiovascular: no chest pain Gastrointestinal: no abdominal pain Genitourinary: + urinary frequency, + urinary incontinence and + hematuria Musculoskeletal: no back pain Integumentary: no rash Neurologic: no localized weakness Physical Exam Constitutional: no acute distress Eyes: no conjunctival abnormality ENMT: Ears: no external ear abnormality Neck: trachea midline Respiratory: no respiratory distress and no labored breathing Cardiovascular: Rate/Rhythm: regular rate and regular rhythm Gastrointestinal (Abdomen): Abdomen is soft and nondistended. There is no pain with palpation. There is no pain with palpation of the suprapubic area. Musculoskeletal: No calf tenderness Skin: no rashes Neurologic: moves all extremities Results & Data ([facility]) Vital Signs (Past 12 Hours) Vital Signs Temp Pulse Pulse Resp BP BP Pulse Ox 04/07/21 19:14 36.8 C 75 17 95/66 L 95 04/07/21 15:21 36.5 C 79 19 106/73 95 04/07/21 13:18 53 L 100/63 04/07/21 11:50 36.5 C 82 17 93/62 L 98 PG Care Time/CCT Total # of Minutes Spent Total Time Spent with Patient: Total time spent is greater than 50% in coordination of care (as documented) at patient's floor/unit and/or counseling patient: Coding Level of Care Code 91623 Inpt Consult Level 4 Diagnoses Hematuria, gross R31.0
[2021-04-08] MEDS: cephALEXin 250 MG CAP PO SCH ×3 (05:41→21:24)
[2021-04-08 06:27] LABS: Hematocrit (blood only) 46.9 % (42-52); Hemoglobin 15.9 g/dL (14.0-18.0)
[2021-04-08 07:07] LABS: Albumin Globulin Ratio 0.9 (0.9-2); Albumin Level 2.8 gm/dl (3.4-5.0); BUN Creatinine Ratio 23.8 (10-20); Bilirubin,Total 2.5 mg/dl (0.2-1); Calcium 8.9 mg/dl (8.5-10.1); Creatinine Clr Calc Pharmacy 28.3 ml/min; Est GFR (African American) 33.6 ml/min; Globulin 3.2 gm/dl (2.5-4.0); Potassium 3.2 mmol/L (3.5-5.1)
[2021-04-08] MEDS: DOXYCYCLINE HYCLATE 100 MG CAP PO SCH ×2 (09:15→19:40)
[2021-04-08] MEDS: GABAPENTIN 400 MG CAP PO SCH (09:15)
[2021-04-08] MEDS: CALCIUM 600MG + VIT D 400 IU TAB PO SCH (09:15)
[2021-04-08] MEDS: AMIODARONE 200 MG TAB PO SCH (09:15)
[2021-04-08] MEDS: BENZONATATE 100 MG CAPSULE PO SCH ×2 (09:15→19:40)
[2021-04-08] MEDS: GLUCOSAMINE SULFATE 500 MG CAP PO SCH (09:16)
[2021-04-08] MEDS: TORSEMIDE 10 MG TAB PO SCH ×2 (09:16→17:15)
[2021-04-08] MEDS: METHOCARBAMOL 500 MG TABLET PO SCH ×2 (09:16→19:40)
[2021-04-08] MEDS: PANTOprazole 40 MG TAB PO SCH ×2 (09:16→19:40)
[2021-04-08] MEDS: METOPROLOL SUCC 25MG EXT REL TAB PO SCH ×2 (09:16→19:40)
[2021-04-08] MEDS: POTASSIUM CHLORIDE CRTAB 20 MEQ TABCR PO SCH ×3 (09:19→19:40)
[2021-04-08] MEDS: INSULIN ASPART 100 UNITS/ML 3 ML PEN SC SCH ×4 (10:19→21:24)
--- NOTE | 2021-04-08 10:25 | Cardiology Progress Note ---
Date of Service April 08, 2021 Assessment & Plan (1) Chronic combined systolic and diastolic CHF (congestive heart failure): (2) Atrial flutter: (3) Acute on chronic kidney failure: Plan: Eliquis on hold due to hematuria. Vo catheter discontinued 04/06/2021. Nursing reports continued hematuria with clots today. Urology consulted. Creatinine trending downward to 2.09 today. Metolazone on hold. Continue torsemide 20 mg twice daily. Monitor daily weight, fluid balance, and GFR. Potassium supplementation, 20 mEq 3 times daily as ordered. Consider metolazone 2.5 mg 2 days/week in the outpatient setting. Per chart review, patient is working on completing assistance form to obtain Vyndamax (treatment for TTR amyloidosis). Elevated serum transaminases trending downward. Elevation secondary to congestive hepatopathy. Continue amiodarone for rate control in addition to metoprolol. As previously documented, patient prognosis is poor secondary to end-stage amyloid cardiomyopathy. Admission and Anticipated Discharge Date Admission Date: March 30, 2021 Subjective Patient seen and examined at the bedside. Complaining of hematuria yesterday. Urology consulted. No intervention recommended at this time. Eliquis on hold. Hemoglobin remains stable. Fluid balance -255 cc. Telemetry reveals atrial fibrillation with ventricular paced rhythm in the 70s. Creatinine trending down to 2.09 today. Metolazone on hold. Clinical status unchanged. Patient remains weak. Review of Systems Review of Systems: All systems reviewed & are unremarkable except as noted in Subjective Physical Exam Constitutional: + ill appearing; no acute distress Respiratory: no respiratory distress, no labored breathing and no retractions Auscultation: + diminished lung sounds (Left base); no rales, no rhonchi and no wheezes Cardiovascular: Rate/Rhythm: + irregularly irregular Heart Sounds: normal S1 and normal S2; no murmur Extremities: + edema (2+ pitting edema) Gastrointestinal (Abdomen): Inspection/Auscultation: normal bowel sounds; abdomen not distended Percussion/Palpation: abdomen soft; abdomen nontender, no guarding and abdomen not rigid Neurologic: CN's II-XI intact bilaterally and moves all extremities; no focal motor deficits Motor/Sensory: no tremor Results & Data ([facility]) Vital Signs (Past 12 Hours) Vital Signs Temp Pulse Pulse Resp BP Pulse Ox 04/08/21 07:34 36.4 C L 72 17 110/75 92 04/08/21 03:45 36.6 C 80 19 99/65 L 93 04/07/21 23:05 36.8 C 65 19 99/70 L 94
--- NOTE | 2021-04-08 10:38 | Nephrology Progress Note ---
Date of Service April 08, 2021 Assessment & Plan (1) Acute on chronic kidney failure: Plan: Patient with JOO on CKD stage IV chronic kidney disease in the setting of end- stage cardiac amyloidosis. High risk for CKD progression. Hyperkalemia from admission improved quickly with medical management. Creatinine is stable at 2. Potassium is low today. -Agree with KCl 20 mEq 3 times daily Continue torsemide 20 mg twice daily No indication for urgent dialysis; given end-stage cardiac disease, poor candidate in any event (2) Volume overload: Plan: -continue diuresis as above 1.5 L fluid restriction to low-sodium diet Needs daily standing weight and strict intake and output to continue Admission and Anticipated Discharge Date Admission Date: March 30, 2021 Subjective Seen in follow-up for JOO. Breathing appears at baseline. Patient remains weak. He is eating breakfast this morning. Creatinine stable. Potassium is low. Review of Systems Review of Systems: All other systems were reviewed and negative except as noted in HPI Physical Exam Physical Exam: General exam: Appears comfortable, no acute distress HEENT: Pupils are equal and reactive to light Neck: No JVD, neck is supple trachea is midline Respiratory system: Clear breath sounds bilaterally. Gastrointestinal: Abdomen is soft, non distended, non tender, bowel sounds are present CVS: Regular rate and rhythm. No murmurs, rubs or gallops Musculoskeletal: No joint or muscle tenderness Extremities: Non tender, 2+ edema, peripheral pulses are present Neuro: Oriented, no tremors, no focal neurological deficits Skin: No rashes Results & Data ([facility]) Vital Signs (Past 12 Hours) Vital Signs Temp Pulse Pulse Resp BP Pulse Ox 04/08/21 07:34 36.4 C L 72 17 110/75 92 04/08/21 03:45 36.6 C 80 19 99/65 L 93 04/07/21 23:05 36.8 C 65 19 99/70 L 94 Laboratory Results 04/08/21 05:34 04/08/21 05:34 Albumin 2.8 L
[2021-04-08] MEDS: oxyCODONE HCL IR 5 MG TAB (IMMEDIATE RELEASE) PO PRN ×2 (11:52→22:48)
--- NOTE | 2021-04-08 12:39 | Hospitalist Progress Note ---
Date of Service April 08, 2021 Assessment & Plan (1) Volume overload: (2) Acute on chronic kidney failure: (3) Hyperkalemia: (4) Cardiac amyloidosis: (5) Chronic combined systolic and diastolic CHF (congestive heart failure): (6) Pleural effusion, right: (7) Diabetes mellitus, type II: (8) Paroxysmal atrial fibrillation: (9) Elevated troponin: Plan: Patient is an 80 yr male with H/O systolic and diastolic CHF with EF <20%, amyloid cardiomyopathy, CKD III-IV, paroxysmal atrial fibrillation on eliquis, dual-chamber ICD, bicuspid aortic valve, mild aortic valve stenosis, HTN, DM type II, history of SVT, failed back surgery syndrome, narcolepsy and other medical problems listed below who presents after multiple falls at home in the past few days. 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 S/P Right thoracentesis on 03/10/21: 1 L transudative fluid removed IV Lasix 60mg IV bid>> transition to torsemide 20 mg twice daily Appreciate cardiology input Monitor I's and O's, daily weight, fluid restriction Needs follow-up with cardiology upon discharge Hold Metolazone for now Consider Metolazone 2 times/Week upon discharge Poor Prognosis Patient is in the process of getting Tafadimis when approved by Insurance Monitor volume status Hematuria Likely due to trauma from lovelace Catheter Hold Eliquis for now Appreciate Urology Input Monitor H&H May need Bladder Irrigation UTI-POA Urine culture: Citrobacter, E. coli Received 3-day course of Rocephin Currently on Keflex Cough Suspected Pneumonia CXR right basal consolidation Antitussives as needed On Keflex for UTI Added Doxy Acute renal Failure on CKD 3-4 Recent baseline Cr ~ 2, Cr of 4.71on admission Cr:4.7>1.8> 1.78 monitor renal function Nephrology on board Hyperkalemia K of 5.7 on presentation Potassium 3.2 today Monitor potassium levels while on supplements Replace potaasium as needed Transaminitis Congestive Hepatopathy Gall Bladder USD:Distended gallbladder with trace pericholecystic fluid and trace sludge. Gallbladder wall remains borderline thickened. This is unchanged compared to the prior abdomen and pelvis CT and could be due to the patient's diffuse edematous state. However, the technologist reported patient tenderness while scanning over the gallbladder. Therefore, a developing cholecystitis cannot be excluded. A follow-up nuclear medicine HIDA scan could be performed for further evaluation. Small right pleural effusion. Hepatic steatosis. Tbili 2.4, AST 420, ALT 297, alk phos 228 INR 1.9>1.4 Evidence of hepatic congestion on CT abd/pelvis in setting of advanced CHF, renal failure Monitor LFTs Appreciate GI Input Consider HIDA scan if required No abdominal pain on exam May need outpatient endoscopic ultrasound liver biopsy. Needs follow-up with GI as outpatient Monitor Deconditioning PT/OT evaluation Would benefit from Rehab placement Fall precautions, CM consult Palliative consulted Persistent Atrial fibrillation/flutter On Eliquis for stroke prophylaxis Eliquis dose reduced to 2.5 mg BID for poor renal clearance Continue amiodarone, Metoprolol Eliquis held due to hematuria Troponin elevation Troponin 0.251 initially in setting of CKD, appears to be chronically elevated No chest pain or acute EKG changes Amyloid cardiomyopathy Advanced stage causing severe restrictive cardiomyopathy with decompensated CHF, overall prognosis remains poor Patient is in the process of getting Tafadimis when approved by Insurance Hyperglycemia Last A1C of 6.2, on sliding scale inpatient with BSG AC HS BSGs better DVT Px: Eliquis held due to hematuria Teds Code status: DNR/DNI Admission and Anticipated Discharge Date Admission Date: March 30, 2021 Subjective Patient is seen and examined at bedside Continues to have hematuria States having very poor oral intake secondary to dietary restrictions Denies any dyspnea Hemoglobin stable Cough continues to improve Denies chest pain, dyspnea, dizziness Review of Systems Review of Systems: All systems reviewed & are unremarkable except as noted in Subjective Physical Exam Physical Exam: Physical Exam: Vitals signs as noted above General Appearance: Elderly, chronic ill appearing, no apparent distress Head: normocephalic, Atraumatic Eyes: normal inspection, EOMI Neck: supple, Trachea midline Respiratory/Chest: Decrease breath sounds, CTA, +Pacer Cardiovascular: S1, S2, +murmur Abdomen/GI:Soft, Non tender, +distended, Bowel sounds present Extremities/Musculoskeletal:normal inspection, 3+ B/L LE edema Neurologic/Psych:AAOX3, grossly no focal neurological deficits Skin: normal color, warm Results & Data Results & Data ([facility]) Vital Signs (Past 12 Hours) Vital Signs Temp Pulse Resp BP Pulse Ox 04/08/21 11:31 36.4 C L 85 16 126/61 94 04/08/21 07:34 36.4 C L 72 17 110/75 92 04/08/21 03:45 36.6 C 80 19 99/65 L 93 Laboratory Results Short CBC 04/07/21 04/08/21 Range/Units 21:08 05:34 Hgb 17.0 15.9 (14.0-18.0) g/dL Hct 49.7 46.9 (42-52) % BMP 04/08/21 05:34 Sodium 140 Potassium 3.2 L Chloride 102 Carbon Dioxide 31 BUN 50 H Creatinine 2.09 H Glucose 129 H Calcium 8.9 Liver Function 04/08/21 Range/Units 05:34 Total Bilirubin 2.5 H (0.2-1) mg/dl AST 51 H (15-37) U/L ALT 123 H (12-78) U/L Alkaline Phosphatase 155 H (45-117) U/L Albumin 2.8 L (3.4-5.0) gm/dl
[2021-04-08] MEDS: LIDOCAINE 5% 1 PATCH TD SCH (17:17)
[2021-04-08 21:06] LABS: Hemoglobin 16.9 g/dL (14.0-18.0)
[2021-04-09 05:16] LABS: Appearance Urine Clear (Clear); Bacteria Urine Automated Negative (Negative); Bilirubin Urine Negative (Negative); Blood Urine 3+ (Negative); Color Urine Yellow; Epithelial Cell Urine Auto 0-5 /lpf (0-5); Glucose Urine UA Negative (Negative); Ketones Urine Negative (Negative); Leukocyte Esterase Urine Negative (Negative); Nitrite Urine Negative (Negative); Protein Urine Negative (Negative); RBC Urine Automated >30 /hpf (0-4); Specific Gravity Urine 1.007 (1.000-1.030); Urobilinogen Urine Negative (Negative)
[2021-04-09 05:39] LABS: Hemoglobin 15.6 g/dL (14.0-18.0)
[2021-04-09 06:04] LABS: BUN Creatinine Ratio 23.4 (10-20); Est GFR (African American) 30.3 ml/min; Est GFR (Non-African American) 26.1 ml/min; Potassium 3.5 mmol/L (3.5-5.1)
[2021-04-09 06:07] LABS: Albumin Globulin Ratio 0.9 (0.9-2); Bilirubin,Total 2.2 mg/dl (0.2-1); Globulin 3.4 gm/dl (2.5-4.0); Total Protein 6.4 gm/dl (6.4-8.2)
[2021-04-09] MEDS: cephALEXin 250 MG CAP PO SCH ×3 (06:45→22:24)
[2021-04-09] MEDS: AMIODARONE 200 MG TAB PO SCH (09:20)
[2021-04-09] MEDS: CALCIUM 600MG + VIT D 400 IU TAB PO SCH (09:20)
[2021-04-09] MEDS: METHOCARBAMOL 500 MG TABLET PO SCH ×2 (09:20→20:35)
[2021-04-09] MEDS: GLUCOSAMINE SULFATE 500 MG CAP PO SCH (09:20)
[2021-04-09] MEDS: GABAPENTIN 400 MG CAP PO SCH (09:20)
[2021-04-09] MEDS: BENZONATATE 100 MG CAPSULE PO SCH ×2 (09:20→20:34)
[2021-04-09] MEDS: POTASSIUM CHLORIDE CRTAB 20 MEQ TABCR PO SCH ×3 (09:20→20:34)
[2021-04-09] MEDS: METOPROLOL SUCC 25MG EXT REL TAB PO SCH ×2 (09:21→20:35)
[2021-04-09] MEDS: TORSEMIDE 10 MG TAB PO SCH ×2 (09:21→17:11)
[2021-04-09] MEDS: PANTOprazole 40 MG TAB PO SCH ×2 (09:21→20:34)
[2021-04-09] MEDS: DOXYCYCLINE HYCLATE 100 MG CAP PO SCH ×2 (09:22→20:34)
[2021-04-09] MEDS: INSULIN ASPART 100 UNITS/ML 3 ML PEN SC SCH ×4 (09:23→20:33)
--- NOTE | 2021-04-09 14:38 | Hospitalist Progress Note ---
Date of Service April 09, 2021 Assessment & Plan (1) Volume overload: (2) Acute on chronic kidney failure: (3) Hyperkalemia: (4) Cardiac amyloidosis: (5) Chronic combined systolic and diastolic CHF (congestive heart failure): (6) Pleural effusion, right: (7) Diabetes mellitus, type II: (8) Paroxysmal atrial fibrillation: (9) Elevated troponin: Plan: Patient is an 80 yr male with H/O systolic and diastolic CHF with EF <20%, amyloid cardiomyopathy, CKD III-IV, paroxysmal atrial fibrillation on eliquis, dual-chamber ICD, bicuspid aortic valve, mild aortic valve stenosis, HTN, DM type II, history of SVT, failed back surgery syndrome, narcolepsy and other medical problems listed below who presents after multiple falls at home in the past few days. 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 Meade 04/09/21-OK to resume Eliquis today If hematuria worsens, will hold Eliquis and patient may require fulguration Hb stable UTI-POA Urine culture: Citrobacter, E. coli Received 3-day course of Rocephin Currently on Keflex Cough Suspected Pneumonia CXR right basal consolidation Antitussives as needed On Keflex, Doxy Acute renal Failure on CKD 3-4 Recent baseline Cr ~ 2, Cr of 4.71on admission Cr:4.7>1.8> 1.78>2.28 monitor renal function Nephrology on board Hyperkalemia K of 5.7 on presentation Potassium 3.5 today Continue potassium supplements Transaminitis Congestive Hepatopathy Gall Bladder USD:Distended gallbladder with trace pericholecystic fluid and trace sludge. Gallbladder wall remains borderline thickened. This is unchanged compared to the prior abdomen and pelvis CT and could be due to the patient's diffuse edematous state. However, the technologist reported patient tenderness while scanning over the gallbladder. Therefore, a developing cholecystitis cannot be excluded. A follow-up nuclear medicine HIDA scan could be performed for further evaluation. Small right pleural effusion. Hepatic steatosis. Tbili 2.4, AST 420, ALT 297, alk phos 228 INR 1.9>1.4 Evidence of hepatic congestion on CT abd/pelvis in setting of advanced CHF, renal failure Monitor LFTs Appreciate GI Input Consider HIDA scan if required No abdominal pain on exam May need outpatient endoscopic ultrasound liver biopsy. Needs follow-up with GI as outpatient Monitor Deconditioning PT/OT evaluation Would benefit from Rehab placement Fall precautions, CM consult Palliative consulted Persistent Atrial fibrillation/flutter On Eliquis for stroke prophylaxis Eliquis dose reduced to 2.5 mg BID for poor renal clearance Continue amiodarone, Metoprolol Resume Eliquis Troponin elevation Troponin 0.251 initially in setting of CKD, appears to be chronically elevated No chest pain or acute EKG changes Amyloid cardiomyopathy Advanced stage causing severe restrictive cardiomyopathy with decompensated CHF, overall prognosis remains poor Patient is in the process of getting Tafadimis when approved by Insurance Hyperglycemia Last A1C of 6.2, on sliding scale inpatient with BSG AC HS BSGs better DVT Px: Resume Eliquis today Teds Code status: DNR/DNI Admission and Anticipated Discharge Date Admission Date: March 30, 2021 Subjective Patient is seen and examined at bedside Hematuria much improved Denies dyspnea Subjectively feels leg edema improved Discussed with urology Dr. Meade today Appetite better Review of Systems Review of Systems: All systems reviewed & are unremarkable except as noted in Subjective Physical Exam Physical Exam: Physical Exam: Vitals signs as noted above General Appearance: Elderly, chronic ill appearing, no apparent distress Head: normocephalic, Atraumatic Eyes: normal inspection, EOMI Neck: supple, Trachea midline Respiratory/Chest: Decrease breath sounds, CTA, +Pacer Cardiovascular: S1, S2, +murmur Abdomen/GI:Soft, Non tender, +distended, Bowel sounds present Extremities/Musculoskeletal:normal inspection, 3+ B/L LE edema Neurologic/Psych:AAOX3, grossly no focal neurological deficits Skin: normal color, warm Results & Data Results & Data ([facility]) Vital Signs (Past 12 Hours) Vital Signs Temp Pulse Pulse Pulse Resp BP BP 04/09/21 11:07 36.4 C L 65 19 90/52 L 04/09/21 07:20 36.5 C 80 18 99/66 L 04/09/21 07:14 72 04/09/21 03:03 36.3 C L 73 17 94/60 L Pulse Ox 04/09/21 11:07 94 04/09/21 07:20 93 04/09/21 07:14 04/09/21 03:03 93 Laboratory Results Short CBC 04/08/21 04/09/21 Range/Units 20:20 05:26 Hgb 16.9 15.6 (14.0-18.0) g/dL Hct 49.0 46.0 (42-52) % BMP 04/09/21 05:26 Sodium 139 Potassium 3.5 Chloride 99 Carbon Dioxide 37 H BUN 53 H Creatinine 2.28 H Glucose 148 H Calcium 9.0 Liver Function 04/09/21 Range/Units 05:26 Total Bilirubin 2.2 H (0.2-1) mg/dl AST 47 H (15-37) U/L ALT 112 H (12-78) U/L Alkaline Phosphatase 157 H (45-117) U/L Albumin 3.0 L (3.4-5.0) gm/dl Urine 04/09/21 Range/Units 04:30 Urine Color Yellow Urine Appearance Clear (Clear) Urine pH 7.0 (4.5-7.5) Ur Specific [place] 1.007 (1.000-1.030) Urine Protein Negative (Negative) Urine Glucose (UA) Negative (Negative)
[2021-04-09] MEDS: oxyCODONE HCL IR 5 MG TAB (IMMEDIATE RELEASE) PO PRN (15:16)
[2021-04-09] MEDS: LIDOCAINE 5% 1 PATCH TD SCH (17:12)
[2021-04-09] MEDS: APIXABAN 2.5 MG TAB PO SCH (20:44)
[2021-04-10] MEDS: cephALEXin 250 MG CAP PO SCH ×3 (06:05→21:08)
[2021-04-10 07:03] LABS: Hematocrit (blood only) 46.6 % (42-52); Hemoglobin 15.6 g/dL (14.0-18.0)
[2021-04-10 07:31] LABS: BUN Creatinine Ratio 25.1 (10-20); Calcium 8.8 mg/dl (8.5-10.1); Creatinine Clr Calc Pharmacy 26.5 ml/min; Est GFR (African American) 32.5 ml/min; Est GFR (Non-African American) 28.1 ml/min; Potassium 2.6 mmol/L (3.5-5.1)
--- NOTE | 2021-04-10 07:40 | Urology Progress Note ---
Date of Service April 10, 2021 Assessment & Plan (1) Hematuria: Plan: 80 year-old male patient, with multiple comorbidities, admitted with volume overload and acute on chronic kidney injury. -Urology consulted due to hematuria. -Patient afebrile. -Labs reviewed - hemoglobin stable, creatinine 2.15 this AM. -Patient reports resolution of hematuria. Spoke with nursing who also verified urine is indeed clear yellow. -No acute intervention indicated at this time. -Okay to have diet. -Continue with close monitoring and supportive care. -Will arrange outpatient follow-up with urology service. Plan for outpatient cystoscopy to complete hematuria workup. -Expected clinical course reviewed with patient, all questions answered. -Urology will sign off at this time, please reconsult us with any questions or acute changes in patient status. Admission and Anticipated Discharge Date Admission Date: March 30, 2021 Subjective Patient examined at bedside, he is resting comfortably. Currently denies abdominal/flank pain. States he has not experienced hematuria in the last few days. Last void he reports was yellow. Denies dysuria. Does note some urinary frequency, denies urgency. Feels he is emptying his bladder well. Denies fevers or chills. Denies nausea or vomiting. Has been NPO since midnight. Chart review: Afebrile Wbc on 04/01 7.94 Hgb 15.6 Creatinine 2.15 Urine culture 03/30 positive for Citrobacter and E.Coli. Currently on PO Keflex and Doxycycline. Denies additional urologic concerns today. Review of Systems Constitutional: as per Subjective / HPI; no fever and no chills Gastrointestinal: as per Subjective / HPI; no nausea and no vomiting Genitourinary: + as per Subjective / HPI Physical Exam Constitutional: cooperative and comfortable; no acute distress and not ill appearing Respiratory: normal respiratory effort and able to speak in complete sentences; no respiratory distress and no audible wheezes Gastrointestinal (Abdomen): Inspection/Auscultation: abdomen normal to inspection; abdomen not distended Percussion/Palpation: abdomen soft; abdomen nontender and no guarding Psychiatric: Orientation: alert, oriented to person, oriented to place and cooperative Affect: euthymic affect Genitourinary: no CVA tenderness Results & Data ([facility]) Vital Signs (Past 12 Hours) Vital Signs Temp Pulse Pulse Pulse Resp BP Pulse Ox 04/10/21 07:06 36.3 C L 67 16 107/69 96 04/10/21 03:32 36.4 C L 66 16 112/72 91 04/09/21 21:00 73 PG Care Time/CCT Total # of Minutes Spent Total Time Spent with Patient: Total time spent is greater than 50% in coordination of care (as documented) at patient's floor/unit and/or counseling patient: Coding Level of Care Code 65718 Subseq Hosp Care Lvl 2 Diagnoses Hematuria R31.9 Hematuria type: unspecified type (1) Hematuria Hematuria type: unspecified type Qualified Code(s): R31.9 - Hematuria, unspecified
[2021-04-10] MEDS: POTASSIUM CHLORIDE / WTR 10 MEQ/100 ML PLCT IV SCH ×4 (07:50→11:05)
[2021-04-10] MEDS: GLUCOSAMINE SULFATE 500 MG CAP PO SCH (07:56)
[2021-04-10] MEDS: METOPROLOL SUCC 25MG EXT REL TAB PO SCH ×2 (07:56→21:07)
[2021-04-10] MEDS: PANTOprazole 40 MG TAB PO SCH ×2 (07:56→21:07)
[2021-04-10] MEDS: GABAPENTIN 400 MG CAP PO SCH (07:56)
[2021-04-10] MEDS: APIXABAN 2.5 MG TAB PO SCH ×2 (07:56→21:07)
[2021-04-10] MEDS: TORSEMIDE 10 MG TAB PO SCH ×2 (07:57→17:04)
[2021-04-10] MEDS: CALCIUM 600MG + VIT D 400 IU TAB PO SCH (07:57)
[2021-04-10] MEDS: METHOCARBAMOL 500 MG TABLET PO SCH ×2 (07:57→21:07)
[2021-04-10] MEDS: DOXYCYCLINE HYCLATE 100 MG CAP PO SCH ×2 (07:57→21:07)
[2021-04-10] MEDS: BENZONATATE 100 MG CAPSULE PO SCH ×2 (07:57→21:07)
[2021-04-10] MEDS: POTASSIUM CHLORIDE CRTAB 20 MEQ TABCR PO SCH ×3 (07:57→21:08)
[2021-04-10] MEDS: AMIODARONE 200 MG TAB PO SCH (07:58)
[2021-04-10] MEDS: INSULIN ASPART 100 UNITS/ML 3 ML PEN SC SCH ×4 (08:01→20:56)
--- NOTE | 2021-04-10 11:54 | Cardiology Progress Note ---
Date of Service April 10, 2021 Assessment & Plan (1) Chronic combined systolic and diastolic CHF (congestive heart failure): (2) Hypokalemia: (3) Atrial flutter: (4) Acute on chronic kidney failure: Plan: Eliquis restarted. No recurrent hematuria. Creatinine remains stable. Continue torsemide 20 mg twice daily. Monitor daily weight, fluid balance, and GFR. Replace potassium as indicated. 40 mEq IV ordered in addition to oral potassium supplementation, 20 mEq 3 times daily. Consider metolazone 2.5 mg 2 days/week in the outpatient setting. Per chart review, patient is working on completing assistance form to obtain Vyndamax (treatment for TTR amyloidosis). As previously documented, patient prognosis is poor secondary to end-stage amyloid cardiomyopathy. Admission and Anticipated Discharge Date Admission Date: March 30, 2021 Subjective Patient seen examined the bedside. No recurrent hematuria over the past 36 hours. Eliquis restarted last evening. Labs today demonstrate hypokalemia. Denies chest pain or unusual shortness of breath. Function opacity remains markedly limited. Edema unchanged. Fluid balance -1.8 L. Telemetry reveals atrial fibrillation/flutter with heart rate ranging from 60-70 bpm and demand ventricular pacing. Review of Systems 2 Review of Systems: All systems reviewed & are unremarkable except as noted in Subjective Physical Exam Constitutional: + ill appearing; no acute distress Respiratory: no respiratory distress, no labored breathing and no retractions Auscultation: + diminished lung sounds (Left base); no rales, no rhonchi and no wheezes Cardiovascular: Rate/Rhythm: + irregularly irregular Heart Sounds: normal S1 and normal S2; no murmur Extremities: + edema (2+ pitting edema) Gastrointestinal (Abdomen): Inspection/Auscultation: normal bowel sounds; abdomen not distended Percussion/Palpation: abdomen soft; abdomen nontender, no guarding and abdomen not rigid Neurologic: CN's II-XI intact bilaterally and moves all extremities; no focal motor deficits Motor/Sensory: no tremor Results & Data ([facility]) Vital Signs (Past 12 Hours) Vital Signs Temp Pulse Pulse Resp BP Pulse Ox 04/10/21 11:17 36.4 C L 57 L 18 101/67 95 04/10/21 07:06 36.3 C L 67 16 107/69 96 04/10/21 03:32 36.4 C L 66 16 112/72 91
[2021-04-10] MEDS: oxyCODONE HCL IR 5 MG TAB (IMMEDIATE RELEASE) PO PRN ×2 (14:04→22:26)
[2021-04-10 14:47] LABS: BUN Creatinine Ratio 25.1 (10-20); Calcium 8.3 mg/dl (8.5-10.1); Creatinine Clr Calc Pharmacy 26.7 ml/min; Est GFR (African American) 32.9 ml/min; Est GFR (Non-African American) 28.4 ml/min; Potassium 3.8 mmol/L (3.5-5.1)
[2021-04-10] MEDS: ALUMINUM/MAGNESIUM/SIMETH (MAALOX MAX) 30 ML UDC PO PRN (15:00)
--- NOTE | 2021-04-10 16:20 | Hospitalist Progress Note ---
Date of Service April 10, 2021 Assessment & Plan (1) Volume overload: (2) Acute on chronic kidney failure: (3) Hyperkalemia: (4) Cardiac amyloidosis: (5) Chronic combined systolic and diastolic CHF (congestive heart failure): (6) Pleural effusion, right: (7) Diabetes mellitus, type II: (8) Paroxysmal atrial fibrillation: (9) Elevated troponin: Plan: Patient is an 80 yr male with H/O systolic and diastolic CHF with EF <20%, amyloid cardiomyopathy, CKD III-IV, paroxysmal atrial fibrillation on eliquis, dual-chamber ICD, bicuspid aortic valve, mild aortic valve stenosis, HTN, DM type II, history of SVT, failed back surgery syndrome, narcolepsy and other medical problems listed below who presents after multiple falls at home in the past few days. 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 S/P Right thoracentesis on 03/10/21: 1 L transudative fluid removed IV Lasix 60mg IV bid>> transition to torsemide 20 mg twice daily Appreciate cardiology input Monitor I's and O's, daily weight, fluid restriction Needs follow-up with cardiology upon discharge Hold Metolazone for now Consider Metolazone 2 times/Week upon discharge Poor Prognosis Hematuria Likely due to trauma from lovelace Catheter Appreciate Urology Input Monitor H&H Discussed with Dr. Meade 04/09/21-OK to resume Eliquis Hematuria resolved Needs follow up with Urology upon discharge Monitor CBC UTI-POA Urine culture: Citrobacter, E. coli Received 3-day course of Rocephin Currently on Keflex Cough Suspected Pneumonia CXR right basal consolidation Antitussives as needed On Keflex, Doxy Acute renal Failure on CKD 3-4 Recent baseline Cr ~ 2, Cr of 4.71on admission Cr:4.7>1.8> 1.78>2.1 monitor renal function Nephrology on board Hyperkalemia K of 5.7 on presentation Potassium 2.6 > 3.8 today Continue potassium supplements Transaminitis Congestive Hepatopathy Gall Bladder USD:Distended gallbladder with trace pericholecystic fluid and trace sludge. Gallbladder wall remains borderline thickened. This is unchanged compared to the prior abdomen and pelvis CT and could be due to the patient's diffuse edematous state. However, the technologist reported patient tenderness while scanning over the gallbladder. Therefore, a developing cholecystitis cannot be excluded. A follow-up nuclear medicine HIDA scan could be performed for further evaluation. Small right pleural effusion. Hepatic steatosis. Tbili 2.4, AST 420, ALT 297, alk phos 228 INR 1.9>1.4 Evidence of hepatic congestion on CT abd/pelvis in setting of advanced CHF, renal failure Monitor LFTs Appreciate GI Input Consider HIDA scan if required No abdominal pain on exam May need outpatient endoscopic ultrasound liver biopsy. Needs follow-up with GI as outpatient Monitor Deconditioning PT/OT evaluation Would benefit from Rehab placement Fall precautions, CM consult Palliative consulted Persistent Atrial fibrillation/flutter On Eliquis for stroke prophylaxis Eliquis dose reduced to 2.5 mg BID for poor renal clearance Continue amiodarone, Metoprolol Continue Eliquis Troponin elevation Troponin 0.251 initially in setting of CKD, appears to be chronically elevated No chest pain or acute EKG changes Amyloid cardiomyopathy Advanced stage causing severe restrictive cardiomyopathy with decompensated CHF, overall prognosis remains poor Patient is in the process of getting Tafadimis when approved by Insurance Hyperglycemia Last A1C of 6.2, on sliding scale inpatient with BSG AC HS BSGs better DVT Px: Eliquis Code status: DNR/DNI Admission and Anticipated Discharge Date Admission Date: March 30, 2021 Subjective Patient is seen and examined at bedside Hematuria resolved Feels tired Poor appetite Cough much improved Denies chest pain, dyspnea, dizziness, nausea Review of Systems Review of Systems: All systems reviewed & are unremarkable except as noted in Subjective Physical Exam Physical Exam: Physical Exam: Vitals signs as noted above General Appearance: Elderly, chronic ill appearing, no apparent distress Head: normocephalic, Atraumatic Eyes: normal inspection, EOMI Neck: supple, Trachea midline Respiratory/Chest: Decrease breath sounds, CTA, +Pacer Cardiovascular: S1, S2, +murmur Abdomen/GI:Soft, Non tender, +distended, Bowel sounds present Extremities/Musculoskeletal:normal inspection, 3+ B/L LE edema Neurologic/Psych:AAOX3, grossly no focal neurological deficits Skin: normal color, warm Results & Data Results & Data ([facility]) Vital Signs (Past 12 Hours) Vital Signs Temp Pulse Resp BP Pulse Ox 04/10/21 11:17 36.4 C L 57 L 18 101/67 95 04/10/21 07:06 36.3 C L 67 16 107/69 96 Laboratory Results Short CBC 04/10/21 Range/Units 06:32 Hgb 15.6 (14.0-18.0) g/dL Hct 46.6 (42-52) % BMP 04/10/21 04/10/21 06:32 13:48 Sodium 135 L 136 Potassium 2.6 L D 3.8 D Chloride 96 L 96 L Carbon Dioxide 39 H 33 H BUN 54 H 54 H Creatinine 2.15 H 2.13 H Glucose 156 H 202 H Calcium 8.8 8.3 L
[2021-04-10] MEDS: LIDOCAINE 5% 1 PATCH TD SCH (17:04)
--- NOTE | 2021-04-10 18:15 | Nephrology Progress Note ---
Date of Service April 10, 2021 Assessment & Plan (1) Acute on chronic kidney failure: Plan: Patient with JOO on CKD stage IV chronic kidney disease in the setting of end- stage cardiac amyloidosis. High risk for CKD progression. Hyperkalemia from admission improved quickly with medical management. Creatinine is stable at 2. Potassium is dangerously low today despite aggressive repletion >> getting 60 mEq standing daily and still had 40 mEq extra today and K 3.8 today -Agree with KCl 20 mEq 3 times daily > starting this evening will increase to 40 mEq tid Continue torsemide 20 mg twice daily ->>>Needs daily bmp w/ CKD 4 and aggressive diuresis No indication for urgent dialysis; given end-stage cardiac disease, poor candidate in any event (2) Volume overload: Plan: -continue diuresis as above 1.5 L fluid restriction to low-sodium diet Needs daily standing weight and strict intake and output to continue Admission and Anticipated Discharge Date Admission Date: March 30, 2021 Subjective no sob; controlled edema. eating meal when I saw him and enjoying this. Review of Systems Review of Systems: All systems reviewed & are unremarkable except as noted in Subjective Physical Exam Constitutional: well developed (Sitting on side of bed on room air), well nourished and cooperative; no acute distress Eyes: EOM intact bilaterally ENMT: Ears: no external ear abnormality Nose: no external nose abnormality Mouth: + dry oral mucous membranes Neck: no nuchal rigidity Respiratory: normal respiratory effort Auscultation: + diminished lung sounds (Bilateral bases) Cardiovascular: Rate/Rhythm: regular rate and regular rhythm Heart Sounds: normal S1, normal S2 and + murmur Extremities: + edema (1-2+ distal bilateral lower extremities) Gastrointestinal (Abdomen): Inspection/Auscultation: normal bowel sounds Percussion/Palpation: abdomen soft; abdomen nontender Musculoskeletal: Extremities: strength 5/5 throughout Skin: no rashes, warm and dry Psychiatric: Orientation: alert and oriented x 3 Eye Contact: good eye contact Speech: normal rate/rhythm/volume of speech Results & Data ([facility]) Vital Signs (Past 12 Hours) Vital Signs Temp Pulse Resp BP Pulse Ox 04/10/21 16:00 36.8 C 60 20 98/59 L 96 04/10/21 11:17 36.4 C L 57 L 18 101/67 95 04/10/21 07:06 36.3 C L 67 16 107/69 96 Laboratory Results 04/10/21 06:32 04/10/21 13:48
[2021-04-10] MEDS: POLYETHYLENE (MIRALAX) 17 GM PACK PO PRN (21:29)
[2021-04-11] MEDS: cephALEXin 250 MG CAP PO SCH ×3 (05:56→21:00)
[2021-04-11 07:36] LABS: Hematocrit (blood only) 49.6 % (42-52); Hemoglobin 16.9 g/dL (14.0-18.0)
[2021-04-11] MEDS: INSULIN ASPART 100 UNITS/ML 3 ML PEN SC SCH ×4 (08:06→20:33)
[2021-04-11] MEDS: DOXYCYCLINE HYCLATE 100 MG CAP PO SCH ×2 (08:07→20:29)
[2021-04-11] MEDS: METOPROLOL SUCC 25MG EXT REL TAB PO SCH ×2 (08:07→20:31)
[2021-04-11] MEDS: PANTOprazole 40 MG TAB PO SCH ×2 (08:07→20:30)
[2021-04-11] MEDS: CALCIUM 600MG + VIT D 400 IU TAB PO SCH (08:07)
[2021-04-11] MEDS: BENZONATATE 100 MG CAPSULE PO SCH ×2 (08:07→20:29)
[2021-04-11] MEDS: METHOCARBAMOL 500 MG TABLET PO SCH ×2 (08:07→20:29)
[2021-04-11] MEDS: AMIODARONE 200 MG TAB PO SCH (08:08)
[2021-04-11] MEDS: APIXABAN 2.5 MG TAB PO SCH ×2 (08:08→20:30)
[2021-04-11] MEDS: GABAPENTIN 400 MG CAP PO SCH (08:08)
[2021-04-11] MEDS: GLUCOSAMINE SULFATE 500 MG CAP PO SCH (08:08)
[2021-04-11] MEDS: POTASSIUM CHLORIDE CRTAB 20 MEQ TABCR PO SCH ×3 (08:08→21:00)
[2021-04-11] MEDS: TORSEMIDE 10 MG TAB PO SCH ×2 (08:08→17:12)
[2021-04-11 08:13] LABS: BUN Creatinine Ratio 24.2 (10-20); Calcium 9.3 mg/dl (8.5-10.1); Creatinine Clr Calc Pharmacy 26.4 ml/min; Est GFR (African American) 32.3 ml/min; Est GFR (Non-African American) 27.9 ml/min; Potassium 3.6 mmol/L (3.5-5.1)
--- NOTE | 2021-04-11 12:11 | Hospitalist Progress Note ---
Date of Service April 11, 2021 Assessment & Plan (1) Volume overload: (2) Acute on chronic kidney failure: (3) Hyperkalemia: (4) Cardiac amyloidosis: (5) Chronic combined systolic and diastolic CHF (congestive heart failure): (6) Pleural effusion, right: (7) Diabetes mellitus, type II: (8) Paroxysmal atrial fibrillation: (9) Elevated troponin: Plan: Patient is an 80 yr male with H/O systolic and diastolic CHF with EF <20%, amyloid cardiomyopathy, CKD III-IV, paroxysmal atrial fibrillation on eliquis, dual-chamber ICD, bicuspid aortic valve, mild aortic valve stenosis, HTN, DM type II, history of SVT, failed back surgery syndrome, narcolepsy and other medical problems listed below who presents after multiple falls at home in the past few days. 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 S/P Right thoracentesis on 03/10/21: 1 L transudative fluid removed IV Lasix 60mg IV bid>> transition to torsemide 20 mg twice daily Appreciate cardiology input Monitor I's and O's, daily weight, fluid restriction Hold Metolazone for now Consider Metolazone 2 times/Week upon discharge Poor Prognosis Volume status improved. Needs follow-up with cardiology upon discharge Waiting for rehab placement Hematuria Likely due to trauma from lovelace Catheter Appreciate Urology Input Monitor H&H Discussed with Dr. Meade 04/09/21-OK to resume Eliquis Hematuria resolved Needs follow up with Urology upon discharge Monitor CBC Hb stable UTI-POA Urine culture: Citrobacter, E. coli Received 3-day course of Rocephin Currently on Keflex Cough Suspected Pneumonia CXR right basal consolidation Antitussives as needed On Keflex, Doxy Acute renal Failure on CKD 3-4 Recent baseline Cr ~ 2, Cr of 4.71on admission Cr:4.7>1.8> 1.78>2.1 monitor renal function Appreciate nephrology input Needs follow-up with Dr. Hernandez in 1 to 2 weeks upon discharge Needs weekly basic metabolic panel as per nephrology Plan to discharge on torsemide 20 mg twice daily, potassium 40 mEq twice daily Hyperkalemia K of 5.7 on presentation Potassium 2.6 > 3.6 today Continue potassium supplements Transaminitis Congestive Hepatopathy Gall Bladder USD:Distended gallbladder with trace pericholecystic fluid and trace sludge. Gallbladder wall remains borderline thickened. This is unchanged compared to the prior abdomen and pelvis CT and could be due to the patient's diffuse edematous state. However, the technologist reported patient tenderness while scanning over the gallbladder. Therefore, a developing cholecystitis cannot be excluded. A follow-up nuclear medicine HIDA scan could be performed for further evaluation. Small right pleural effusion. Hepatic steatosis. Tbili 2.4, AST 420, ALT 297, alk phos 228 INR 1.9>1.4 Evidence of hepatic congestion on CT abd/pelvis in setting of advanced CHF, renal failure Monitor LFTs Appreciate GI Input Consider HIDA scan if required No abdominal pain on exam May need outpatient endoscopic ultrasound liver biopsy. Needs follow-up with GI as outpatient Monitor Deconditioning PT/OT evaluation Would benefit from Rehab placement Fall precautions, CM consult Palliative consulted Persistent Atrial fibrillation/flutter On Eliquis for stroke prophylaxis Eliquis dose reduced to 2.5 mg BID for poor renal clearance Continue amiodarone, Metoprolol Continue Eliquis Troponin elevation Troponin 0.251 initially in setting of CKD, appears to be chronically elevated No chest pain or acute EKG changes Amyloid cardiomyopathy Advanced stage causing severe restrictive cardiomyopathy with decompensated CHF, overall prognosis remains poor Patient is in the process of getting Tafadimis when approved by Insurance Hyperglycemia Last A1C of 6.2, on sliding scale inpatient with BSG AC HS BSGs better DVT Px: Eliquis Code status: DNR/DNI Disposition Plan to discharge to rehab facility when accepted. Admission and Anticipated Discharge Date Admission Date: March 30, 2021 Subjective Patient is seen and examined at bedside No recurrence of hematuria Appetite remains poor Feels nauseous and tired this morning Denies chest pain, dyspnea, dizziness, nausea No other complaints Review of Systems Review of Systems: All systems reviewed & are unremarkable except as noted in Subjective Physical Exam Physical Exam: Physical Exam: Vitals signs as noted above General Appearance: Elderly, chronic ill appearing, no apparent distress Head: normocephalic, Atraumatic Eyes: normal inspection, EOMI Neck: supple, Trachea midline Respiratory/Chest: Decrease breath sounds, CTA, +Pacer Cardiovascular: S1, S2, +murmur Abdomen/GI:Soft, Non tender, +distended, Bowel sounds present Extremities/Musculoskeletal:normal inspection, 3+ B/L LE edema Neurologic/Psych:AAOX3, grossly no focal neurological deficits Skin: normal color, warm Results & Data Results & Data ([facility]) Vital Signs (Past 12 Hours) Vital Signs Temp Pulse Resp BP BP Pulse Ox 04/11/21 10:48 36.4 C L 71 18 101/68 90 04/11/21 07:44 36.6 C 82 19 116/80 95 04/11/21 07:01 36.6 C 75 18 92/60 L 97 04/11/21 03:18 36.4 C L 78 16 91/59 L 91 Laboratory Results Short CBC 04/11/21 Range/Units 07:21 Hgb 16.9 (14.0-18.0) g/dL Hct 49.6 (42-52) % BMP 04/10/21 04/11/21 13:48 07:21 Sodium 136 135 L Potassium 3.8 D 3.6 Chloride 96 L 96 L Carbon Dioxide 33 H 32 BUN 54 H 52 H Creatinine 2.13 H 2.16 H Glucose 202 H 159 H Calcium 8.3 L 9.3
--- NOTE | 2021-04-11 13:56 | Cardiology Progress Note ---
Date of Service April 11, 2021 Assessment & Plan (1) Chronic combined systolic and diastolic CHF (congestive heart failure): (2) Hypokalemia: (3) Atrial flutter: (4) Acute on chronic kidney failure: Plan: Eliquis restarted. No recurrent hematuria. Creatinine remains stable. Continue torsemide 20 mg twice daily. Monitor daily weight, fluid balance, and GFR. Replace potassium as indicated. 20 mEq 3 times daily ordered. Consider metolazone 2.5 mg 2 days/week in the outpatient setting. Per chart review, patient is working on completing assistance form to obtain Vyndamax (treatment for TTR amyloidosis). As previously documented, patient prognosis is poor secondary to end-stage amyloid cardiomyopathy. Awaiting placement. Admission and Anticipated Discharge Date Admission Date: March 30, 2021 Subjective Patient seen and examined the bedside. Denies chest pain or unusual shortness of breath. Lower extremity edema unchanged. Negative fluid balance with stable renal function noted. Denies orthopnea or PND. Has questions regarding transfer for rehab. Offers no other concerns/complaints. Telemetry reveals at ria fibrillation with demand ventricular pacing, rate 60-80 bpm. Review of Systems Review of Systems: All systems reviewed & are unremarkable except as noted in Subjective Physical Exam Constitutional: + ill appearing; no acute distress Respiratory: no respiratory distress, no labored breathing and no retractions Auscultation: + diminished lung sounds (Left base); no rales, no rhonchi and no wheezes Cardiovascular: Rate/Rhythm: + irregularly irregular Heart Sounds: normal S1 and normal S2; no murmur Extremities: + edema (2+ pitting edema) Gastrointestinal (Abdomen): Inspection/Auscultation: normal bowel sounds; abdomen not distended Percussion/Palpation: abdomen soft; abdomen nontender, no guarding and abdomen not rigid Neurologic: CN's II-XI intact bilaterally and moves all extremities; no focal motor deficits Motor/Sensory: no tremor Results & Data ([facility]) Vital Signs (Past 12 Hours) Vital Signs Temp Pulse Resp BP BP Pulse Ox 04/11/21 10:48 36.4 C L 71 18 101/68 90 04/11/21 07:44 36.6 C 82 19 116/80 95 04/11/21 07:01 36.6 C 75 18 92/60 L 97 04/11/21 03:18 36.4 C L 78 16 91/59 L 91
--- NOTE | 2021-04-11 16:01 | Nephrology Progress Note ---
Date of Service April 11, 2021 Assessment & Plan (1) Acute on chronic kidney failure: Plan: Patient with JOO on CKD stage IV chronic kidney disease in the setting of end- stage cardiac amyloidosis. High risk for CKD progression. Hyperkalemia from admission improved quickly with medical management. Creatinine is stable at low 2's. Potassium low normal today after yesterday's dangerously low level despite aggressive repletion. for possible d/c today -Agree with KCl 20 mEq 3 times daily > starting this evening will increase to 40 mEq tid Continue torsemide 20 mg twice daily ->>>Needs daily bmp w/ CKD 4 and aggressive diuresis No indication for urgent dialysis; given end-stage cardiac disease, poor candidate in any event DISCHARGE NEPHRO RECS -d/c on torsemide 20 mg bid17, K 40 mEq bid -nephrology will after pt's d/c order weekly bmp x 3 wks; pt may need to schedule lab appts > pls asst -pt to have f/u appt w/ Dr Jama in 1-2 wks; pls schedule -cont sodium limit and daily wts at d/c (2) Volume overload: Plan: -continue diuresis as above 1.5 L fluid restriction to low-sodium diet Needs daily standing weight and strict intake and output to continue Admission and Anticipated Discharge Date Admission Date: March 30, 2021 Subjective seen on rounds this am 1015AM approx; pain controlled; no sob; did have some N at time I saw him from taking pills Review of Systems Review of Systems: All systems reviewed & are unremarkable except as noted in Subjective Physical Exam Constitutional: well developed (Lying on is R side in bed on room air), well nourished and cooperative; no acute distress Eyes: EOM intact bilaterally ENMT: Ears: no external ear abnormality Nose: no external nose abnormality Mouth: + dry oral mucous membranes Neck: no nuchal rigidity Respiratory: normal respiratory effort Auscultation: + diminished lung sounds (Bilateral bases) Cardiovascular: Rate/Rhythm: regular rate and regular rhythm Heart Sounds: normal S1, normal S2 and + murmur Extremities: + edema (1-2+ distal bilateral lower extremities) Gastrointestinal (Abdomen): Inspection/Auscultation: normal bowel sounds Percussion/Palpation: abdomen soft; abdomen nontender Musculoskeletal: Extremities: strength 5/5 throughout Skin: no rashes, warm and dry Psychiatric: Orientation: alert and oriented x 3 Eye Contact: good eye contact Speech: normal rate/rhythm/volume of speech Results & Data ([facility]) Vital Signs (Past 12 Hours) Vital Signs Temp Pulse Resp BP Pulse Ox 04/11/21 10:48 36.4 C L 71 18 101/68 90 04/11/21 07:44 36.6 C 82 19 116/80 95 04/11/21 07:01 36.6 C 75 18 92/60 L 97 Laboratory Results 04/11/21 07:21 04/11/21 07:21
[2021-04-11] MEDS: ALUMINUM/MAGNESIUM/SIMETH (MAALOX MAX) 30 ML UDC PO PRN (16:47)
[2021-04-11] MEDS: LIDOCAINE 5% 1 PATCH TD SCH (17:12)
[2021-04-11] MEDS: POLYETHYLENE (MIRALAX) 17 GM PACK PO PRN (22:32)
[2021-04-12] MEDS: oxyCODONE HCL IR 5 MG TAB (IMMEDIATE RELEASE) PO PRN ×2 (06:10→20:25)
[2021-04-12] MEDS: cephALEXin 250 MG CAP PO SCH ×2 (06:31→14:54)
[2021-04-12 06:42] LABS: Hemoglobin 15.9 g/dL (14.0-18.0)
[2021-04-12 07:10] LABS: BUN Creatinine Ratio 25.3 (10-20); Calcium 9.4 mg/dl (8.5-10.1); Creatinine Clr Calc Pharmacy 26.4 ml/min; Est GFR (African American) 31.8 ml/min; Est GFR (Non-African American) 27.4 ml/min
[2021-04-12] MEDS: GABAPENTIN 400 MG CAP PO SCH (08:11)
[2021-04-12] MEDS: CALCIUM 600MG + VIT D 400 IU TAB PO SCH (08:11)
[2021-04-12] MEDS: AMIODARONE 200 MG TAB PO SCH (08:12)
[2021-04-12] MEDS: METOPROLOL SUCC 25MG EXT REL TAB PO SCH ×2 (08:12→20:20)
[2021-04-12] MEDS: GLUCOSAMINE SULFATE 500 MG CAP PO SCH (08:12)
[2021-04-12] MEDS: INSULIN ASPART 100 UNITS/ML 3 ML PEN SC SCH ×4 (08:14→20:21)
[2021-04-12] MEDS: APIXABAN 2.5 MG TAB PO SCH ×2 (08:17→20:20)
[2021-04-12] MEDS: DOXYCYCLINE HYCLATE 100 MG CAP PO SCH ×2 (08:17→20:20)
[2021-04-12] MEDS: METHOCARBAMOL 500 MG TABLET PO SCH ×2 (08:17→20:20)
[2021-04-12] MEDS: BENZONATATE 100 MG CAPSULE PO SCH ×2 (08:17→20:20)
[2021-04-12] MEDS: PANTOprazole 40 MG TAB PO SCH ×2 (08:18→20:20)
[2021-04-12] MEDS: TORSEMIDE 10 MG TAB PO SCH ×2 (08:18→17:01)
[2021-04-12] MEDS: POTASSIUM CHLORIDE CRTAB 20 MEQ TABCR PO SCH ×3 (08:21→20:25)
--- NOTE | 2021-04-12 11:34 | Hospitalist Progress Note ---
Date of Service April 12, 2021 Assessment & Plan (1) Volume overload: (2) Acute on chronic kidney failure: (3) Hyperkalemia: (4) Cardiac amyloidosis: (5) Chronic combined systolic and diastolic CHF (congestive heart failure): (6) Pleural effusion, right: (7) Diabetes mellitus, type II: (8) Paroxysmal atrial fibrillation: (9) Elevated troponin: Plan: per Dr. Jenkins's notes: Patient is an 80 yr male with H/O systolic and diastolic CHF with EF <20%, am yloid cardiomyopathy, CKD III-IV, paroxysmal atrial fibrillation on eliquis, dual-chamber ICD, bicuspid aortic valve, mild aortic valve stenosis, HTN, DM type II, history of SVT, failed back surgery syndrome, narcolepsy and other medical problems listed below who presents after multiple falls at home in the past few days. 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 Poor Prognosis Volume status improved. Needs follow-up with cardiology upon discharge Waiting for rehab placement Hematuria Likely due to trauma from lovelace Catheter Urologist consulted Discussed with Dr. Meade 04/09/21-OK to resume Eliquis Hematuria resolved Needs follow up with Urology upon discharge Hg stable UTI-POA Urine culture: Citrobacter, E. coli Received 3-day course of Rocephin Currently on Keflex Cough Suspected Pneumonia CXR right basal consolidation Antitussives as needed On Keflex, Doxy day 01/16 Acute renal Failure on CKD 3-4 Recent baseline Cr ~ 2, Cr of 4.71on admission improved to low 2s Needs follow-up with Dr. Hernandez in 1 to 2 weeks upon discharge Needs weekly basic metabolic panel as per nephrology Plan to discharge on torsemide 20 mg twice daily, potassium 40 mEq twice daily Hyperkalemia K of 5.7 on presentation Potassium 4.0 Transaminitis Congestive Hepatopathy Gall Bladder USD:Distended gallbladder with trace pericholecystic fluid and trace sludge. Gallbladder wall remains borderline thickened. This is unchanged compared to the prior abdomen and pelvis CT and could be due to the patient's diffuse edematous state. However, the technologist reported patient tenderness while scanning over the gallbladder. Therefore, a developing cholecystitis cannot be excluded. A follow-up nuclear medicine HIDA scan could be performed for further evaluation. Small right pleural effusion. Hepatic steatosis. Tbili 2.4, AST 420, ALT 297, alk phos 228 INR 1.9>1.4 Evidence of hepatic congestion on CT abd/pelvis in setting of advanced CHF, renal failure GI consulted Consider HIDA scan if required May need outpatient endoscopic ultrasound liver biopsy. Needs follow-up with GI as outpatient Deconditioning PT/OT evaluation Would benefit from Rehab placement Fall precautions, CM consult Palliative consulted Persistent Atrial fibrillation/flutter On Eliquis for stroke prophylaxis Eliquis dose reduced to 2.5 mg BID for poor renal clearance Continue amiodarone, Metoprolol Continue Eliquis Amyloid cardiomyopathy Advanced stage causing severe restrictive cardiomyopathy with decompensated CHF, overall prognosis remains poor Patient is in the process of getting Tafadimis when approved by Insurance Hyperglycemia Last A1C of 6.2, on sliding scale inpatient with BSG AC HS BSGs better DVT Px: Eliquis Code status: DNR/DNI Disposition Plan to discharge to rehab facility when accepted. Admission and Anticipated Discharge Date Admission Date: March 30, 2021 Subjective ff up for CHF etc. seen resting in bed, comfortable not in distress states he feels ok overall no chest pain, dyspnea, palpitations, dizziness no other symptoms Review of Systems Review of Systems: all noted and negative except for above Physical Exam Physical Exam: General- oriented x 3, not in distress, speaks in sentences with no effort or accessory muscle use Eyes- anicteric Neck- no JVD Lungs- clear BS BL Heart- normal rate, irregularly irregular rhythm; no murmurs Abdomen- normal bowel sounds, nondistended, soft, nontender Extremities- mild pretibial edema, no calf tenderness Neuro- alert, oriented x 3; no gross focal neurologic deficits Skin- warm & dry Results & Data Results & Data ([facility]) Vital Signs (Past 12 Hours) Vital Signs Temp Pulse Pulse Resp BP Pulse Ox 04/12/21 10:52 36.4 C L 60 17 91/60 L 95 04/12/21 07:41 36.4 C L 75 17 101/71 91 04/12/21 03:52 36.5 C 76 18 102/67 95 04/12/21 00:03 36.8 C 74 18 88/57 L 95 04/12/21 00:00 79 all noted and reviewed including below
--- NOTE | 2021-04-12 12:02 | Cardiology Progress Note ---
Date of Service April 12, 2021 Assessment & Plan (1) Chronic combined systolic and diastolic CHF (congestive heart failure): (2) Hypokalemia: (3) Atrial flutter: (4) Acute on chronic kidney failure: Plan: Continue Eliquis 2.5 mg twice daily. Continue current cardiovascular medications including Eliquis 2.5 mg twice daily, torsemide 20 mg twice daily, potassium supplementation, amiodarone, and metoprolol. Monitor daily weight, fluid balance, and GFR. Replace potassium as indicated. 20 mEq 3 times daily ordered. Consider metolazone 2.5 mg 2 days/week in the outpatient setting if needed to control edema. Per chart review, patient is working on completing assistance form to obtain Vyndamax (treatment for TTR amyloidosis). As previously documented, patient prognosis is poor secondary to end-stage amyloid cardiomyopathy. Awaiting placement. Admission and Anticipated Discharge Date Admission Date: March 30, 2021 Subjective Patient seen and examined at the bedside. More alert today. Requesting discharge. Denies chest pain or unusual shortness of breath. Lower extremity edema unchanged. Notes poor appetite. Telemetry reveals atrial fibrillation with demand ventricular pacing. Heart rate ranging from 60-80 bpm. No orthopnea or PND. Denies palpitations, lightheadedness, or dizziness. Eliquis restarted without evidence of recurrent hematuria. Review of Systems Review of Systems: All systems reviewed & are unremarkable except as noted in Subjective Physical Exam Constitutional: + ill appearing; no acute distress Respiratory: no respiratory distress, no labored breathing and no retractions Auscultation: + diminished lung sounds (Left base); no rales, no rhonchi and no wheezes Cardiovascular: Rate/Rhythm: + irregularly irregular Heart Sounds: normal S1 and normal S2; no murmur Extremities: + edema (2+ pitting edema) Gastrointestinal (Abdomen): Inspection/Auscultation: normal bowel sounds; abdomen not distended Percussion/Palpation: abdomen soft; abdomen nontender, no guarding and abdomen not rigid Neurologic: CN's II-XI intact bilaterally and moves all extremities; no focal motor deficits Motor/Sensory: no tremor Results & Data ([facility]) Vital Signs (Past 12 Hours) Vital Signs Temp Pulse Resp BP Pulse Ox 04/12/21 10:52 36.4 C L 60 17 91/60 L 95 04/12/21 07:41 36.4 C L 75 17 101/71 91 04/12/21 03:52 36.5 C 76 18 102/67 95 04/12/21 00:03 36.8 C 74 18 88/57 L 95
[2021-04-12] MEDS: LIDOCAINE 5% 1 PATCH TD SCH (17:01)
[2021-04-12] MEDS: POLYETHYLENE (MIRALAX) 17 GM PACK PO PRN (20:26)
[2021-04-13 07:49] LABS: BUN Creatinine Ratio 25.8 (10-20); Calcium 9.4 mg/dl (8.5-10.1); Creatinine Clr Calc Pharmacy 24.7 ml/min; Est GFR (African American) 29.5 ml/min; Est GFR (Non-African American) 25.5 ml/min; Potassium 4.6 mmol/L (3.5-5.1)
[2021-04-13] MEDS: INSULIN ASPART 100 UNITS/ML 3 ML PEN SC SCH ×4 (08:18→21:42)
[2021-04-13] MEDS: APIXABAN 2.5 MG TAB PO SCH ×2 (08:20→21:40)
[2021-04-13] MEDS: DOXYCYCLINE HYCLATE 100 MG CAP PO SCH ×2 (08:20→21:40)
[2021-04-13] MEDS: GABAPENTIN 400 MG CAP PO SCH (08:20)
[2021-04-13] MEDS: BENZONATATE 100 MG CAPSULE PO SCH ×2 (08:20→21:40)
[2021-04-13] MEDS: AMIODARONE 200 MG TAB PO SCH (08:20)
[2021-04-13] MEDS: GLUCOSAMINE SULFATE 500 MG CAP PO SCH (08:21)
[2021-04-13] MEDS: CALCIUM 600MG + VIT D 400 IU TAB PO SCH (08:21)
[2021-04-13] MEDS: METOPROLOL SUCC 25MG EXT REL TAB PO SCH ×2 (08:21→21:39)
[2021-04-13] MEDS: PANTOprazole 40 MG TAB PO SCH ×2 (08:21→21:41)
[2021-04-13] MEDS: METHOCARBAMOL 500 MG TABLET PO SCH ×2 (08:21→21:40)
[2021-04-13] MEDS: TORSEMIDE 10 MG TAB PO SCH ×3 (08:22→18:33)
[2021-04-13] MEDS: POTASSIUM CHLORIDE CRTAB 20 MEQ TABCR PO SCH ×2 (10:16→12:03)
[2021-04-13] MEDS ORDERED: MAGNESIUM HYDROXIDE SUSP 30 ML UDC PO PRN (10:59)
[2021-04-13] MEDS: oxyCODONE HCL IR 5 MG TAB (IMMEDIATE RELEASE) PO PRN (13:02)
--- NOTE | 2021-04-13 16:44 | Hospitalist Progress Note ---
Date of Service April 13, 2021 Assessment & Plan (1) Volume overload: (2) Acute on chronic kidney failure: (3) Hyperkalemia: (4) Cardiac amyloidosis: (5) Chronic combined systolic and diastolic CHF (congestive heart failure): (6) Pleural effusion, right: (7) Diabetes mellitus, type II: (8) Paroxysmal atrial fibrillation: (9) Elevated troponin: Plan: per Dr. Jenkins's notes: Patient is an 80 yr male with H/O systolic and diastolic CHF with EF <20%, am yloid cardiomyopathy, CKD III-IV, paroxysmal atrial fibrillation on eliquis, dual-chamber ICD, bicuspid aortic valve, mild aortic valve stenosis, HTN, DM type II, history of SVT, failed back surgery syndrome, narcolepsy and other medical problems listed below who presents after multiple falls at home in the past few days. 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 stable overall Poor Prognosis Volume status improved. Needs follow-up with cardiology upon discharge Waiting for rehab placement Hematuria Likely due to trauma from lovelace Catheter Urologist consulted Discussed with Dr. Meade 04/09/21-OK to resume Eliquis Hematuria resolved Needs follow up with Urology upon discharge Hg stable UTI-POA Urine culture: Citrobacter, E. coli Received 3-day course of Rocephin Currently on Keflex Cough Suspected Pneumonia CXR right basal consolidation Antitussives as needed On Keflex, Doxy day 02/15 Acute renal Failure on CKD 3-4 Recent baseline Cr ~ 2, Cr of 4.71on admission improved to low 2s Needs follow-up with Dr. Hernandez in 1 to 2 weeks upon discharge Needs weekly basic metabolic panel as per nephrology Plan to discharge on torsemide 20 mg twice daily, potassium 20 mEq twice daily Hyperkalemia K of 5.7 on presentation Potassium 4.0 Transaminitis Congestive Hepatopathy Gall Bladder USD:Distended gallbladder with trace pericholecystic fluid and trace sludge. Gallbladder wall remains borderline thickened. This is unchanged compared to the prior abdomen and pelvis CT and could be due to the patient's diffuse edematous state. However, the technologist reported patient tenderness while scanning over the gallbladder. Therefore, a developing cholecystitis cannot be excluded. A follow-up nuclear medicine HIDA scan could be performed for further evaluation. Small right pleural effusion. Hepatic steatosis. Tbili 2.4, AST 420, ALT 297, alk phos 228 INR 1.9>1.4 Evidence of hepatic congestion on CT abd/pelvis in setting of advanced CHF, renal failure GI consulted Consider HIDA scan if required May need outpatient endoscopic ultrasound liver biopsy. Needs follow-up with GI as outpatient Deconditioning PT/OT evaluation Would benefit from Rehab placement Fall precautions, CM consult Palliative consulted Persistent Atrial fibrillation/flutter On Eliquis for stroke prophylaxis Eliquis dose reduced to 2.5 mg BID for poor renal clearance Continue amiodarone, Metoprolol Continue Eliquis Amyloid cardiomyopathy Advanced stage causing severe restrictive cardiomyopathy with decompensated CHF, overall prognosis remains poor Patient is in the process of getting Tafadimis when approved by Insurance Hyperglycemia Last A1C of 6.2, on sliding scale inpatient with BSG AC HS BSGs better DVT Px: Eliquis Code status: DNR/DNI Disposition Plan to discharge to rehab facility when accepted. Admission and Anticipated Discharge Date Admission Date: March 30, 2021 Subjective ff up for CHF etc seen resting bed comfortable not in distress no chest pain, dyspnea, palpitations, dizziness no other symptoms Review of Systems Review of Systems: all noted and negative except for above Physical Exam Physical Exam: General- oriented x 3, not in distress, speaks in sentences with no effort or accessory muscle use Eyes- anicteric Neck- no JVD Lungs- clear breath sounds BL no rales Heart- normal rate, irregularly irregular rhythm; no murmurs Abdomen- normal bowel sounds, nondistended, soft, nontender Extremities-trace pretibial edema, no calf tenderness Neuro- alert, oriented x 3; no gross focal neurologic deficits Skin- warm & dry Results & Data Results & Data ([facility]) Vital Signs (Past 12 Hours) Vital Signs Temp Pulse Pulse Pulse Resp BP BP 04/13/21 16:02 36.3 C L 87 18 102/71 04/13/21 12:00 36.3 C L 130 H 18 104/74 04/13/21 07:26 36.5 C 87 18 112/75 04/13/21 07:00 77 Pulse Ox 04/13/21 16:02 04/13/21 12:00 98 04/13/21 07:26 95 04/13/21 07:00 all noted and reviewed including below
[2021-04-13] MEDS: LIDOCAINE 5% 1 PATCH TD SCH ×2 (17:12→18:33)
[2021-04-13] MEDS ORDERED: SODIUM CHLORIDE 0.9% 250 ML IV SCH (20:30)
[2021-04-14 07:19] LABS: BUN Creatinine Ratio 25.7 (10-20); Calcium 9.5 mg/dl (8.5-10.1); Creatinine Clr Calc Pharmacy 22.9 ml/min; Est GFR (African American) 27.6 ml/min; Est GFR (Non-African American) 23.8 ml/min; Potassium 3.8 mmol/L (3.5-5.1)
[2021-04-14] MEDS: METOPROLOL SUCC 25MG EXT REL TAB PO SCH ×2 (08:01→19:45)
[2021-04-14] MEDS: APIXABAN 2.5 MG TAB PO SCH ×2 (08:02→19:44)
[2021-04-14] MEDS: AMIODARONE 200 MG TAB PO SCH (08:02)
[2021-04-14] MEDS: GABAPENTIN 400 MG CAP PO SCH (08:02)
[2021-04-14] MEDS: PANTOprazole 40 MG TAB PO SCH ×2 (08:02→19:46)
[2021-04-14] MEDS: DOXYCYCLINE HYCLATE 100 MG CAP PO SCH (08:03)
[2021-04-14] MEDS: METHOCARBAMOL 500 MG TABLET PO SCH ×2 (08:03→19:45)
[2021-04-14] MEDS: TORSEMIDE 10 MG TAB PO SCH (08:03)
[2021-04-14] MEDS: BENZONATATE 100 MG CAPSULE PO SCH ×2 (08:03→19:45)
[2021-04-14] MEDS: GLUCOSAMINE SULFATE 500 MG CAP PO SCH (08:03)
[2021-04-14] MEDS: INSULIN ASPART 100 UNITS/ML 3 ML PEN SC SCH ×4 (08:07→20:58)
[2021-04-14] MEDS: CALCIUM 600MG + VIT D 400 IU TAB PO SCH (08:19)
[2021-04-14] MEDS: ACETAMINOPHEN 325 MG TAB PO PRN (08:57)
[2021-04-14] MEDS: POLYETHYLENE (MIRALAX) 17 GM PACK PO PRN (11:40)
--- NOTE | 2021-04-14 13:34 | Cardiology Progress Note ---
Date of Service April 14, 2021 Assessment & Plan (1) Chronic combined systolic and diastolic CHF (congestive heart failure): (2) Hypokalemia: (3) Atrial flutter: (4) Acute on chronic kidney failure: Plan: Creatinine trending upward. Hold torsemide this evening. Repeat basic metabolic panel in a.m. Consider reducing dose to 20 mg once daily with a second dose on Saturday, Saturday, and Saturday. Continue Eliquis 2.5 mg twice daily. Per chart review, patient is working on completing assistance form to obtain Vyndamax (treatment for TTR amyloidosis). As previously documented, patient prognosis is poor secondary to end-stage amyloid cardiomyopathy. Awaiting placement. Admission and Anticipated Discharge Date Admission Date: March 30, 2021 Subjective Patient seen examined the bedside. Denies chest pain or unusual shortness of breath. Telemetry reveals atrial fibrillation with intermittent ventricular pacing. Heart rate ranging from 70-80 bpm. Patient denies orthopnea or PND. Voices frustration regarding placement issues. Review of Systems Review of Systems: All systems reviewed & are unremarkable except as noted in Subjective Physical Exam Constitutional: + ill appearing; no acute distress Respiratory: no respiratory distress, no labored breathing and no retractions Auscultation: + diminished lung sounds (Left base); no rales, no rhonchi and no wheezes Cardiovascular: Rate/Rhythm: + irregularly irregular Heart Sounds: normal S1 and normal S2; no murmur Extremities: + edema (2+ pitting edema of the feet and ankles) Gastrointestinal (Abdomen): Inspection/Auscultation: normal bowel sounds; abdomen not distended Percussion/Palpation: abdomen soft; abdomen nontender, no guarding and abdomen not rigid Neurologic: CN's II-XI intact bilaterally and moves all extremities; no focal motor deficits Motor/Sensory: no tremor Results & Data ([facility]) Vital Signs (Past 12 Hours) Vital Signs Temp Pulse Pulse Pulse Resp BP BP 04/14/21 11:12 36.5 C 69 17 93/61 L 04/14/21 07:41 36.6 C 70 17 91/68 L 04/14/21 07:00 69 04/14/21 04:00 36.3 C L 75 18 101/70 Pulse Ox 04/14/21 11:12 93 04/14/21 07:41 91 04/14/21 07:00 04/14/21 04:00 92
[2021-04-14] MEDS: ALUMINUM/MAGNESIUM/SIMETH (MAALOX MAX) 30 ML UDC PO PRN (15:05)
[2021-04-14] MEDS: LIDOCAINE 5% 1 PATCH TD SCH ×2 (17:27→18:14)
--- NOTE | 2021-04-14 17:38 | Hospitalist Progress Note ---
Date of Service April 14, 2021 Assessment & Plan (1) Volume overload: (2) Acute on chronic kidney failure: (3) Hyperkalemia: (4) Cardiac amyloidosis: (5) Chronic combined systolic and diastolic CHF (congestive heart failure): (6) Pleural effusion, right: (7) Diabetes mellitus, type II: (8) Paroxysmal atrial fibrillation: (9) Elevated troponin: Plan: per Dr. Jenkins's notes: Patient is an 80 yr male with H/O systolic and diastolic CHF with EF <20%, am yloid cardiomyopathy, CKD III-IV, paroxysmal atrial fibrillation on eliquis, dual-chamber ICD, bicuspid aortic valve, mild aortic valve stenosis, HTN, DM type II, history of SVT, failed back surgery syndrome, narcolepsy and other medical problems listed below who presents after multiple falls at home in the past few days. 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 BP on the low side patient appears euvolemic Torsemide and K held for now monitor Needs follow-up with cardiology upon discharge Waiting for rehab placement Hematuria Likely due to trauma from lovelace Catheter Urologist consulted Discussed with Dr. Meade 04/09/21-OK to resume Eliquis Hematuria resolved Needs follow up with Urology upon discharge Hg stable UTI-POA Urine culture: Citrobacter, E. coli Received 3-day course of Rocephin Currently on Keflex Cough Suspected Pneumonia CXR right basal consolidation Antitussives as needed completed Keflex, Doxy 7/7 days Acute renal Failure on CKD 3-4 Recent baseline Cr ~ 2, Cr of 4.71on admission improved to low 2s Needs follow-up with Dr. Hernandez in 1 to 2 weeks upon discharge Needs weekly basic metabolic panel as per nephrology Plan to discharge on torsemide 20 mg twice daily, potassium 20 mEq twice daily -- Torsemide held for elevated crea monitor Hyperkalemia K of 5.7 on presentation Potassium 4.0 Transaminitis Congestive Hepatopathy Gall Bladder USD:Distended gallbladder with trace pericholecystic fluid and trace sludge. Gallbladder wall remains borderline thickened. This is unchanged compared to the prior abdomen and pelvis CT and could be due to the patient's diffuse edematous state. However, the technologist reported patient tenderness while scanning over the gallbladder. Therefore, a developing cholecystitis cannot be excluded. A follow-up nuclear medicine HIDA scan could be performed for further evaluation. Small right pleural effusion. Hepatic steatosis. Tbili 2.4, AST 420, ALT 297, alk phos 228 INR 1.9>1.4 Evidence of hepatic congestion on CT abd/pelvis in setting of advanced CHF, renal failure GI consulted Consider HIDA scan if required May need outpatient endoscopic ultrasound liver biopsy. Needs follow-up with GI as outpatient Deconditioning PT/OT evaluation Would benefit from Rehab placement Fall precautions, CM consult Palliative consulted Persistent Atrial fibrillation/flutter On Eliquis for stroke prophylaxis Eliquis dose reduced to 2.5 mg BID for poor renal clearance Continue amiodarone, Metoprolol Continue Eliquis Amyloid cardiomyopathy Advanced stage causing severe restrictive cardiomyopathy with decompensated CHF, overall prognosis remains poor Patient is in the process of getting Tafadimis when approved by Insurance Hyperglycemia Last A1C of 6.2, on sliding scale inpatient with BSG AC HS BSGs better DVT Px: Eliquis Code status: DNR/DNI Disposition Plan to discharge to rehab facility when accepted. Admission and Anticipated Discharge Date Admission Date: March 30, 2021 Subjective ff up for CHF etc hypotensive overnight, asymptomatic resting in bed, comfortable not in distress no chest pain, dyspnea, palpitations, dizziness no other symptoms Review of Systems Review of Systems: all noted and negative except for above Physical Exam Physical Exam: General- oriented x 3, not in distress, speaks in sentences with no effort or accessory muscle use Eyes- anicteric Neck- no JVD Lungs- clear BS BL Heart- normal rate, regular rhythm; no murmurs Abdomen- normal bowel sounds, nondistended, soft, nontender Extremities- no pretibial edema, no calf tenderness Neuro- alert, oriented x 3; no gross focal neurologic deficits Skin- warm & dry Results & Data Results & Data ([place]) Vital Signs (Past 12 Hours) Vital Signs Temp Pulse Pulse Resp BP Pulse Ox 04/14/21 14:46 36.6 C 89 18 131/82 98 04/14/21 11:12 36.5 C 69 17 93/61 L 93 04/14/21 07:41 36.6 C 70 17 91/68 L 91 04/14/21 07:00 69 all noted and reviewed including below
[2021-04-15] MEDS: ACETAMINOPHEN 325 MG TAB PO PRN (02:03)
[2021-04-15] MEDS: BENZONATATE 100 MG CAPSULE PO SCH ×2 (08:49→22:02)
[2021-04-15] MEDS: AMIODARONE 200 MG TAB PO SCH (08:49)
[2021-04-15] MEDS: CALCIUM 600MG + VIT D 400 IU TAB PO SCH (08:49)
[2021-04-15] MEDS: PANTOprazole 40 MG TAB PO SCH ×2 (08:49→22:01)
[2021-04-15] MEDS: GABAPENTIN 400 MG CAP PO SCH (08:49)
[2021-04-15] MEDS: GLUCOSAMINE SULFATE 500 MG CAP PO SCH (08:49)
[2021-04-15] MEDS: METOPROLOL SUCC 25MG EXT REL TAB PO SCH ×2 (08:50→22:00)
[2021-04-15] MEDS: METHOCARBAMOL 500 MG TABLET PO SCH ×2 (08:50→22:03)
[2021-04-15] MEDS: APIXABAN 2.5 MG TAB PO SCH ×2 (08:50→22:02)
[2021-04-15] MEDS: INSULIN ASPART 100 UNITS/ML 3 ML PEN SC SCH ×4 (08:51→22:08)
--- NOTE | 2021-04-15 10:14 | Nephrology Progress Note ---
Date of Service April 15, 2021 Assessment & Plan (1) Acute on chronic kidney failure: Plan: Patient with JOO on CKD stage IV chronic kidney disease in the setting of end- stage cardiac amyloidosis. High risk for CKD progression. Hyperkalemia from admission improved quickly with medical management. Creatinine is stable at low 2's. Potassium low normal today after yesterday's dangerously low level despite aggressive repletion. for possible d/c today -Agree with KCl 20 mEq 3 times daily > starting this evening will increase to 40 mEq tid Continue torsemide 20 mg twice daily ->>>Needs daily bmp w/ CKD 4 and aggressive diuresis No indication for urgent dialysis; given end-stage cardiac disease, poor candidate in any event DISCHARGE NEPHRO RECS -d/c on torsemide 20 mg bid17, K 40 mEq bid -nephrology will follow after pt's d/c order weekly bmp x 3 wks; pt may need to schedule lab appts > pls asst -pt to have f/u appt w/ Dr Jama in 1-2 wks; pls schedule -cont sodium limit and daily wts at d/c (2) Volume overload: Plan: -continue diuresis as above 1.5 L fluid restriction to low-sodium diet Needs daily standing weight and strict intake and output to continue Admission and Anticipated Discharge Date Admission Date: March 30, 2021 Subjective Seen in follow-up for CKD and volume overload. No shortness of breath. Legs are still swollen. He awaits rehab placement. Review of Systems Review of Systems: All other systems were reviewed and negative except as noted in HPI Physical Exam Physical Exam: General exam: Appears comfortable, no acute distress HEENT: Pupils are equal and reactive to light Neck: No JVD, neck is supple trachea is midline Respiratory system: Clear breath sounds bilaterally. Gastrointestinal: Abdomen is soft, non distended, non tender, bowel sounds are present CVS: Regular rate and rhythm. No murmurs, rubs or gallops Musculoskeletal: No joint or muscle tenderness Extremities: Non tender, 2+ edema, peripheral pulses are present Neuro: Oriented, no tremors, no focal neurological deficits Skin: No rashes Results & Data ([facility]) Vital Signs (Past 12 Hours) Vital Signs Temp Pulse Pulse Pulse Resp BP Pulse Ox 04/15/21 07:20 36.8 C 72 18 121/60 96 04/15/21 07:00 79 04/15/21 04:12 36.5 C 69 20 104/70 97 04/14/21 23:31 36.5 C 55 L 20 97/68 L 91 04/14/21 23:00 80 Laboratory Results 04/14/21 06:25
[2021-04-15 11:05] LABS: BUN Creatinine Ratio 23.8 (10-20); Creatinine Clr Calc Pharmacy 21.3 ml/min; Est GFR (African American) 25.1 ml/min; Est GFR (Non-African American) 21.7 ml/min; Potassium 3.7 mmol/L (3.5-5.1)
--- NOTE | 2021-04-15 17:13 | Hospitalist Progress Note ---
Date of Service April 15, 2021 Assessment & Plan (1) Volume overload: (2) Acute on chronic kidney failure: (3) Hyperkalemia: (4) Cardiac amyloidosis: (5) Chronic combined systolic and diastolic CHF (congestive heart failure): (6) Pleural effusion, right: (7) Diabetes mellitus, type II: (8) Paroxysmal atrial fibrillation: (9) Elevated troponin: Plan: per Dr. Jenkins's notes: Patient is an 80 yr male with H/O systolic and diastolic CHF with EF <20%, am yloid cardiomyopathy, CKD III-IV, paroxysmal atrial fibrillation on eliquis, dual-chamber ICD, bicuspid aortic valve, mild aortic valve stenosis, HTN, DM type II, history of SVT, failed back surgery syndrome, narcolepsy and other medical problems listed below who presents after multiple falls at home in the past few days. 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 BP on the low side patient appears euvolemic crea increased to 2.6 HOLD Torsemide and K for now monitor Needs follow-up with cardiology upon discharge Waiting for rehab placement Hematuria Likely due to trauma from lovelace Catheter Urologist consulted Discussed with Dr. Meade 04/09/21-OK to resume Eliquis Hematuria resolved Needs follow up with Urology upon discharge Hg stable UTI-POA Urine culture: Citrobacter, E. coli Received 3-day course of Rocephin Currently on Keflex Cough Suspected Pneumonia CXR right basal consolidation Antitussives as needed completed Keflex, Doxy 7/7 days Acute renal Failure on CKD 3-4 Recent baseline Cr ~ 2, Cr of 4.71on admission improved to low 2s Needs follow-up with Dr. Hernandez in 1 to 2 weeks upon discharge Needs weekly basic metabolic panel as per nephrology Plan to discharge on torsemide 20 mg twice daily, potassium 20 mEq twice daily -- Torsemide held for elevated crea monitor Hyperkalemia K of 5.7 on presentation Potassium 3.7 Transaminitis Congestive Hepatopathy Gall Bladder USD:Distended gallbladder with trace pericholecystic fluid and trace sludge. Gallbladder wall remains borderline thickened. This is unchanged compared to the prior abdomen and pelvis CT and could be due to the patient's diffuse edematous state. However, the technologist reported patient tenderness while scanning over the gallbladder. Therefore, a developing cholecystitis cannot be excluded. A follow-up nuclear medicine HIDA scan could be performed for further evaluation. Small right pleural effusion. Hepatic steatosis. Tbili 2.4, AST 420, ALT 297, alk phos 228 INR 1.9>1.4 Evidence of hepatic congestion on CT abd/pelvis in setting of advanced CHF, renal failure GI consulted Consider HIDA scan if required May need outpatient endoscopic ultrasound liver biopsy. Needs follow-up with GI as outpatient Deconditioning PT/OT evaluation Would benefit from Rehab placement Fall precautions, CM consult Palliative consulted Persistent Atrial fibrillation/flutter On Eliquis for stroke prophylaxis Eliquis dose reduced to 2.5 mg BID for poor renal clearance Continue amiodarone, Metoprolol Continue Eliquis Amyloid cardiomyopathy Advanced stage causing severe restrictive cardiomyopathy with decompensated CHF, overall prognosis remains poor Patient is in the process of getting Tafadimis when approved by Insurance Hyperglycemia Last A1C of 6.2, on sliding scale inpatient with BSG AC HS BSGs better DVT Px: Eliquis Code status: DNR/DNI Disposition Plan to discharge to rehab facility when accepted. Admission and Anticipated Discharge Date Admission Date: March 30, 2021 Subjective ff up for CHF etc seen resting in bed, comfortable feels fine overall no chest pain, dyspnea no cough no new symptoms Review of Systems Review of Systems: all noted and negative except for above Physical Exam Physical Exam: General- oriented x 3, not in distress, speaks in sentences with no effort or accessory muscle use Eyes- anicteric Neck- no JVD Lungs- clear BS BL no rales Heart- normal rate, regular rhythm; no murmurs Abdomen- normal bowel sounds, nondistended, soft, nontender Extremities- no pretibial edema, no calf tenderness Neuro- alert, oriented x 3; no gross focal neurologic deficits Skin- warm & dry Results & Data Results & Data ([facility]) Vital Signs (Past 12 Hours) Vital Signs Temp Pulse Pulse Pulse Resp BP BP 04/15/21 12:51 36.5 C 87 18 94/60 L 04/15/21 11:50 36.3 C L 87 16 96/54 L 04/15/21 07:20 36.8 C 72 18 121/60 04/15/21 07:00 79 Pulse Ox 04/15/21 12:51 98 04/15/21 11:50 96 04/15/21 07:20 96 04/15/21 07:00 all noted and reviewed including below
[2021-04-16] MEDS: METOPROLOL SUCC 25MG EXT REL TAB PO SCH ×2 (08:44→21:34)
[2021-04-16] MEDS: PANTOprazole 40 MG TAB PO SCH ×2 (08:45→21:33)
[2021-04-16] MEDS: CALCIUM 600MG + VIT D 400 IU TAB PO SCH (08:45)
[2021-04-16] MEDS: GLUCOSAMINE SULFATE 500 MG CAP PO SCH (08:45)
[2021-04-16] MEDS: BENZONATATE 100 MG CAPSULE PO SCH ×2 (08:45→21:35)
[2021-04-16] MEDS: GABAPENTIN 400 MG CAP PO SCH (08:45)
[2021-04-16] MEDS: AMIODARONE 200 MG TAB PO SCH (08:45)
[2021-04-16] MEDS: APIXABAN 2.5 MG TAB PO SCH ×2 (08:45→21:35)
[2021-04-16] MEDS: METHOCARBAMOL 500 MG TABLET PO SCH ×2 (08:45→21:34)
[2021-04-16] MEDS: INSULIN ASPART 100 UNITS/ML 3 ML PEN SC SCH ×4 (08:45→21:36)
[2021-04-16 09:01] LABS: BUN Creatinine Ratio 23.4 (10-20); Calcium 9.2 mg/dl (8.5-10.1); Creatinine Clr Calc Pharmacy 20.8 ml/min; Est GFR (African American) 24.4 ml/min; Potassium 3.6 mmol/L (3.5-5.1)
--- NOTE | 2021-04-16 09:40 | Hospitalist Progress Note ---
Date of Service April 16, 2021 Assessment & Plan (1) Volume overload: (2) Acute on chronic kidney failure: (3) Hyperkalemia: (4) Cardiac amyloidosis: (5) Chronic combined systolic and diastolic CHF (congestive heart failure): (6) Pleural effusion, right: (7) Diabetes mellitus, type II: (8) Paroxysmal atrial fibrillation: (9) Elevated troponin: Plan: per Dr. Jenkins's notes: Patient is an 80 yr male with H/O systolic and diastolic CHF with EF <20%, am yloid cardiomyopathy, CKD III-IV, paroxysmal atrial fibrillation on eliquis, dual-chamber ICD, bicuspid aortic valve, mild aortic valve stenosis, HTN, DM type II, history of SVT, failed back surgery syndrome, narcolepsy and other medical problems listed below who presents after multiple falls at home in the past few days. 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 crea increased to 2.7 HOLD Torsemide and K for now discussed with Nephro monitor Needs follow-up with cardiology upon discharge Waiting for rehab placement Hematuria Likely due to trauma from lovelace Catheter Urologist consulted Discussed with Dr. Meade 04/09/21-OK to resume Eliquis Hematuria resolved Needs follow up with Urology upon discharge Hg stable UTI-POA Urine culture: Citrobacter, E. coli Received 3-day course of Rocephin Currently on Keflex Cough Suspected Pneumonia CXR right basal consolidation Antitussives as needed completed Keflex, Doxy 7/7 days Acute renal Failure on CKD 3-4 Recent baseline Cr ~ 2, Cr of 4.71on admission improved to low 2s Needs follow-up with Dr. Hernandez in 1 to 2 weeks upon discharge Needs weekly basic metabolic panel as per nephrology Plan to discharge on torsemide 20 mg twice daily, potassium 20 mEq twice daily -- Torsemide held for elevated crea monitor Hyperkalemia K of 5.7 on presentation Potassium 3.7 Transaminitis Congestive Hepatopathy Gall Bladder USD:Distended gallbladder with trace pericholecystic fluid and trace sludge. Gallbladder wall remains borderline thickened. This is unchanged compared to the prior abdomen and pelvis CT and could be due to the patient's diffuse edematous state. However, the technologist reported patient tenderness while scanning over the gallbladder. Therefore, a developing cholecystitis cannot be excluded. A follow-up nuclear medicine HIDA scan could be performed for further evaluation. Small right pleural effusion. Hepatic steatosis. Tbili 2.4, AST 420, ALT 297, alk phos 228 INR 1.9>1.4 Evidence of hepatic congestion on CT abd/pelvis in setting of advanced CHF, renal failure GI consulted Consider HIDA scan if required May need outpatient endoscopic ultrasound liver biopsy. Needs follow-up with GI as outpatient Deconditioning PT/OT evaluation Would benefit from Rehab placement Fall precautions, CM consult Palliative consulted Persistent Atrial fibrillation/flutter On Eliquis for stroke prophylaxis Eliquis dose reduced to 2.5 mg BID for poor renal clearance Continue amiodarone, Metoprolol Continue Eliquis Amyloid cardiomyopathy Advanced stage causing severe restrictive cardiomyopathy with decompensated CHF, overall prognosis remains poor Patient is in the process of getting Tafadimis when approved by Insurance Hyperglycemia Last A1C of 6.2, on sliding scale inpatient with BSG AC HS BSGs better DVT Px: Eliquis Code status: DNR/DNI Disposition Plan to discharge to rehab facility when accepted. Admission and Anticipated Discharge Date Admission Date: March 30, 2021 Subjective ff up for CHF exacerbation seen resting in chair comfortable states he feels fine overall denies chest pain, dyspnea no cough no other symptoms Review of Systems Review of Systems: all noted and negative except for above Physical Exam Physical Exam: General- oriented x 3, not in distress, speaks in sentences with no effort or accessory muscle use Eyes- anicteric Neck- no JVD Lungs- mild rales at the bases Heart- normal rate, regular rhythm; no murmurs Abdomen- normal bowel sounds, nondistended, soft, nontender Extremities- mild lower leg edema, no calf tenderness Neuro- alert, oriented x 3; no gross focal neurologic deficits Skin- warm & dry Results & Data Results & Data ([facility]) Vital Signs (Past 12 Hours) Vital Signs Temp Pulse Pulse Pulse Resp BP BP 04/16/21 07:54 36.9 C 89 16 99/65 L 04/16/21 03:21 36.5 C 82 18 89/65 L 04/15/21 23:41 36.4 C L 71 16 94/60 L 04/15/21 23:30 75 04/15/21 23:00 88 04/15/21 21:59 67 95/64 L Pulse Ox 04/16/21 07:54 95 04/16/21 03:21 96 04/15/21 23:41 93 04/15/21 23:30 04/15/21 23:00 04/15/21 21:59 all noted and reviewed including below
[2021-04-16] MEDS ORDERED: POTASSIUM CHLORIDE CRTAB 20 MEQ TABCR PO SCH (09:45)
--- NOTE | 2021-04-16 10:43 | Nephrology Progress Note ---
Date of Service April 16, 2021 Assessment & Plan (1) Acute on chronic kidney failure: Plan: Patient with JOO on CKD stage IV chronic kidney disease in the setting of end- stage cardiac amyloidosis. High risk for CKD progression. Hyperkalemia from admission improved quickly with medical management. Creatinine is stable at low 2's. Potassium low normal today after yesterday's dangerously low level despite aggressive repletion. No indication for urgent dialysis; given end-stage cardiac disease, poor candidate in any event -Patient received torsemide 20 mg today and will hold again. He appears euvolemic to slightly hypovolemic. -Encourage nutrition particularly protein. Would add a protein supplement like Glucerna 3 times daily DISCHARGE NEPHRO RECS -d/c on torsemide 20 mg daily, K 40 mEq daily -nephrology will follow after pt's d/c order weekly bmp x 3 wks; pt may need to schedule lab appts > pls asst -pt to have f/u appt w/ Dr Jama in 1-2 wks; pls schedule -cont sodium limit and daily wts at d/c (2) Volume overload: Plan: Volume status has improved significantly. Patient is now euvolemic to slightly hypovolemic. We will hold diuretics 1.5 L fluid restriction to low-sodium diet Needs daily standing weight and strict intake and output to continue Admission and Anticipated Discharge Date Admission Date: March 30, 2021 Subjective Seen in follow-up for CKD and volume overload. Her main complaint is weakness. Appetite is improving. Patient is now eating his meals. Blood pressure is soft. He is making urine. Creatinine slightly up trending to 2.7 today. Review of Systems Review of Systems: All other systems were reviewed and negative except as noted in HPI Physical Exam Physical Exam: General exam: Appears comfortable, no acute distress HEENT: Pupils are equal and reactive to light Neck: No JVD, neck is supple trachea is midline Respiratory system: Clear breath sounds bilaterally. Gastrointestinal: Abdomen is soft, non distended, non tender, bowel sounds are present CVS: Regular rate and rhythm. No murmurs, rubs or gallops Musculoskeletal: No joint or muscle tenderness Extremities: Non tender, 1+ edema, peripheral pulses are present Neuro: Oriented, no tremors, no focal neurological deficits Skin: No rashes Results & Data ([facility]) Vital Signs (Past 12 Hours) Vital Signs Temp Pulse Pulse Pulse Resp BP Pulse Ox 04/16/21 07:54 36.9 C 89 16 99/65 L 95 04/16/21 03:21 36.5 C 82 18 89/65 L 96 04/15/21 23:41 36.4 C L 71 16 94/60 L 93 04/15/21 23:30 75 04/15/21 23:00 88 Laboratory Results 04/16/21 08:29
[2021-04-16] MEDS: LIDOCAINE 5% 1 PATCH TD SCH (17:33)
[2021-04-16] MEDS: POLYETHYLENE (MIRALAX) 17 GM PACK PO PRN (17:39)
[2021-04-17 08:52] LABS: BUN Creatinine Ratio 25.3 (10-20); Calcium 9.2 mg/dl (8.5-10.1); Creatinine Clr Calc Pharmacy 25.9 ml/min; Est GFR (African American) 31.1 ml/min; Est GFR (Non-African American) 26.8 ml/min; Potassium 3.3 mmol/L (3.5-5.1)
[2021-04-17] MEDS: INSULIN ASPART 100 UNITS/ML 3 ML PEN SC SCH ×4 (09:43→20:23)
[2021-04-17] MEDS: AMIODARONE 200 MG TAB PO SCH (09:46)
[2021-04-17] MEDS: GLUCOSAMINE SULFATE 500 MG CAP PO SCH (09:46)
[2021-04-17] MEDS: APIXABAN 2.5 MG TAB PO SCH ×2 (09:46→19:55)
[2021-04-17] MEDS: CALCIUM 600MG + VIT D 400 IU TAB PO SCH (09:46)
[2021-04-17] MEDS: GABAPENTIN 400 MG CAP PO SCH (09:46)
[2021-04-17] MEDS: METHOCARBAMOL 500 MG TABLET PO SCH ×2 (09:47→19:56)
[2021-04-17] MEDS: METOPROLOL SUCC 25MG EXT REL TAB PO SCH ×2 (09:47→19:55)
[2021-04-17] MEDS: PANTOprazole 40 MG TAB PO SCH ×2 (09:47→19:56)
[2021-04-17] MEDS: BENZONATATE 100 MG CAPSULE PO SCH ×2 (09:50→20:00)
[2021-04-17] MEDS ORDERED: POTASSIUM CHLORIDE CRTAB 20 MEQ TABCR PO STA (10:42)
[2021-04-17] MEDS: TORSEMIDE 10 MG TAB PO SCH (11:05)
--- NOTE | 2021-04-17 11:05 | Nephrology Progress Note ---
Date of Service April 17, 2021 Assessment & Plan (1) Acute on chronic kidney failure: Plan: Patient with JOO on CKD stage IV chronic kidney disease in the setting of end- stage cardiac amyloidosis. High risk for CKD progression. Hyperkalemia from admission improved quickly with medical management. Creatinine is stable at low 2's. Potassium low normal today after yesterday's dangerously low level despite aggressive repletion. No indication for urgent dialysis; given end-stage cardiac disease, poor candidate in any event -Patient received torsemide 20 mg yesterday. We will continue the same dose of torsemide 20 mg daily. -Increase potassium chloride 40 mEq twice daily -Encourage nutrition particularly protein. Would add a protein supplement like Glucerna 3 times daily DISCHARGE NEPHRO RECS -d/c on torsemide 20 mg daily, K 40 mEq twice daily -nephrology will follow after pt's d/c order weekly bmp x 3 wks; pt may need to schedule lab appts > pls asst -pt to have f/u appt w/ Dr Jama in 1-2 wks; pls schedule -cont sodium limit and daily wts at d/c (2) Volume overload: Plan: Volume status has improved significantly. Patient is now euvolemic 1.5 L fluid restriction to low-sodium diet Needs daily standing weight and strict intake and output to continue Admission and Anticipated Discharge Date Admission Date: March 30, 2021 Subjective Seen in follow-up for ESRD. He feels better. Main complaint is weakness. He would like to be discharged tomorrow. Review of Systems Review of Systems: All other systems were reviewed and negative except as note d in HPI Physical Exam Physical Exam: General exam: Appears comfortable, no acute distress HEENT: Pupils are equal and reactive to light Neck: No JVD, neck is supple trachea is midline Respiratory system: Clear breath sounds bilaterally. Gastrointestinal: Abdomen is soft, non distended, non tender, bowel sounds are present CVS: Regular rate and rhythm. No murmurs, rubs or gallops Musculoskeletal: No joint or muscle tenderness Extremities: Non tender, 1+edema, peripheral pulses are present Neuro: Oriented, no tremors, no focal neurological deficits Skin: No rashes Results & Data ([facility]) Vital Signs (Past 12 Hours) Vital Signs Temp Pulse Pulse Resp BP Pulse Ox 04/17/21 06:57 36.7 C 73 18 105/65 94 04/17/21 04:23 36.7 C 73 18 91/60 L 97 04/17/21 01:53 79 04/16/21 23:10 36.7 C 68 18 101/72 97 Laboratory Results 04/17/21 08:13
--- NOTE | 2021-04-17 13:24 | Hospitalist Progress Note ---
Date of Service April 17, 2021 Assessment & Plan (1) Volume overload: (2) Acute on chronic kidney failure: (3) Hyperkalemia: (4) Cardiac amyloidosis: (5) Chronic combined systolic and diastolic CHF (congestive heart failure): (6) Pleural effusion, right: (7) Diabetes mellitus, type II: (8) Paroxysmal atrial fibrillation: (9) Elevated troponin: Plan: per Dr. Jenkins's notes: Patient is an 80 yr male with H/O systolic and diastolic CHF with EF <20%, am yloid cardiomyopathy, CKD III-IV, paroxysmal atrial fibrillation on eliquis, dual-chamber ICD, bicuspid aortic valve, mild aortic valve stenosis, HTN, DM type II, history of SVT, failed back surgery syndrome, narcolepsy and other medical problems listed below who presents after multiple falls at home in the past few days. 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 crea increased to 2.7, now improved to 2.2 Resume torsemide, but reduce to once daily given marginal blood pressure and kidney function Potassium 40 mix p.o. twice daily Appreciate nephrology service recommendations Needs follow-up with cardiology upon discharge Waiting for rehab placement Hematuria Likely due to trauma from lovelace Catheter Urologist consulted Discussed with Dr. Meade 04/09/21-OK to resume Eliquis Hematuria resolved Needs follow up with Urology upon discharge Hg stable UTI-POA Urine culture: Citrobacter, E. coli Received 3-day course of Rocephin Currently on Keflex Cough Suspected Pneumonia CXR right basal consolidation Antitussives as needed completed Keflex, Doxy 7/7 days Acute renal Failure on CKD 3-4 Recent baseline Cr ~ 2, Cr of 4.71on admission improved to low 2s Needs follow-up with Dr. Hernandez in 1 to 2 weeks upon discharge Needs weekly basic metabolic panel as per nephrology Plan to discharge on torsemide 20 mg twice daily, potassium 20 mEq twice daily --Management per above monitor Hyperkalemia K of 5.7 on presentation Monitor potassium while on supplementation Transaminitis Congestive Hepatopathy Gall Bladder USD:Distended gallbladder with trace pericholecystic fluid and trace sludge. Gallbladder wall remains borderline thickened. This is unchanged compared to the prior abdomen and pelvis CT and could be due to the patient's diffuse edematous state. However, the technologist reported patient tenderness while scanning over the gallbladder. Therefore, a developing cholecystitis cannot be excluded. A follow-up nuclear medicine HIDA scan could be performed for further evaluation. Small right pleural effusion. Hepatic steatosis. Tbili 2.4, AST 420, ALT 297, alk phos 228 INR 1.9>1.4 Evidence of hepatic congestion on CT abd/pelvis in setting of advanced CHF, renal failure GI consulted Consider HIDA scan if required May need outpatient endoscopic ultrasound liver biopsy. Needs follow-up with GI as outpatient Deconditioning PT/OT evaluation Would benefit from Rehab placement Fall precautions, CM consult Palliative consulted Persistent Atrial fibrillation/flutter On Eliquis for stroke prophylaxis Eliquis dose reduced to 2.5 mg BID for poor renal clearance Continue amiodarone, Metoprolol Continue Eliquis Amyloid cardiomyopathy Advanced stage causing severe restrictive cardiomyopathy with decompensated CHF, overall prognosis remains poor Patient is in the process of getting Tafadimis when approved by Insurance Hyperglycemia Last A1C of 6.2, on sliding scale inpatient with BSG AC HS BSGs better DVT Px: Eliquis Code status: DNR/DNI Disposition Plan to discharge to rehab facility when accepted. Admission and Anticipated Discharge Date Admission Date: March 30, 2021 Subjective Follow-up for CHF, etc. Seen resting in bed, comfortable, not in distress In good spirits Denies shortness of breath, chest pain, palpitations, dizziness States he is feeling better overall No other symptoms Review of Systems Review of Systems: all noted and negative except for above Physical Exam Physical Exam: General- oriented x 3, not in distress, speaks in sentences with no effort or accessory muscle use Eyes- anicteric Neck- no JVD Lungs-very mild rales at the bases, no wheezing good air entry bilaterally Heart- normal rate, irregularly irregular rhythm; no murmurs Abdomen- normal bowel sounds, nondistended, soft, nontender Extremities-mild lower leg edema, no calf tenderness Neuro- alert, oriented x 3; no gross focal neurologic deficits Skin- warm & dry Results & Data Results & Data ([facility]) Vital Signs (Past 12 Hours) Vital Signs Temp Pulse Pulse Resp BP Pulse Ox 04/17/21 11:46 36.9 C 78 18 99/66 L 96 04/17/21 08:00 78 04/17/21 06:57 36.7 C 73 18 105/65 94 04/17/21 04:23 36.7 C 73 18 91/60 L 97 04/17/21 01:53 79 all noted and reviewed including below
[2021-04-17] MEDS: LIDOCAINE 5% 1 PATCH TD SCH (18:09)
[2021-04-17] MEDS: ACETAMINOPHEN 325 MG TAB PO PRN (19:54)
[2021-04-17] MEDS: POTASSIUM CHLORIDE CRTAB 20 MEQ TABCR PO SCH (19:55)
[2021-04-18 08:20] LABS: Calcium 8.8 mg/dl (8.5-10.1); Creatinine Clr Calc Pharmacy 27.7 ml/min; Est GFR (African American) 33.6 ml/min; Potassium 3.5 mmol/L (3.5-5.1)
[2021-04-18] MEDS: INSULIN ASPART 100 UNITS/ML 3 ML PEN SC SCH ×4 (09:01→22:01)
[2021-04-18] MEDS: AMIODARONE 200 MG TAB PO SCH (09:04)
[2021-04-18] MEDS: CALCIUM 600MG + VIT D 400 IU TAB PO SCH (09:04)
[2021-04-18] MEDS: APIXABAN 2.5 MG TAB PO SCH ×2 (09:04→21:24)
[2021-04-18] MEDS: GABAPENTIN 400 MG CAP PO SCH (09:04)
[2021-04-18] MEDS: METOPROLOL SUCC 25MG EXT REL TAB PO SCH ×2 (09:05→21:28)
[2021-04-18] MEDS: TORSEMIDE 10 MG TAB PO SCH (09:05)
[2021-04-18] MEDS: POTASSIUM CHLORIDE CRTAB 20 MEQ TABCR PO SCH ×2 (09:05→21:27)
[2021-04-18] MEDS: PANTOprazole 40 MG TAB PO SCH ×2 (09:05→21:26)
[2021-04-18] MEDS: METHOCARBAMOL 500 MG TABLET PO SCH ×2 (09:05→21:26)
[2021-04-18] MEDS: GLUCOSAMINE SULFATE 500 MG CAP PO SCH (09:05)
[2021-04-18] MEDS: BENZONATATE 100 MG CAPSULE PO SCH ×2 (09:11→21:30)
--- NOTE | 2021-04-18 11:31 | Nephrology Progress Note ---
Date of Service April 18, 2021 Assessment & Plan Admission and Anticipated Discharge Date Admission Date: March 30, 2021 Subjective Assessment & Plan (1) Acute on chronic kidney failure: Plan: Patient with JOO on CKD stage IV chronic kidney disease in the setting of end- stage cardiac amyloidosis. High risk for CKD progression. Hyperkalemia from admission improved quickly with medical management. Creatinine is stable at low 2's. Potassium low normal today after yesterday's dangerously low level despite aggressive repletion. No indication for urgent dialysis; given end-stage cardiac disease, poor candidate in any event -Patient received torsemide 20 mg yesterday. We will continue the same dose of torsemide 20 mg daily. -Increase potassium chloride 40 mEq twice daily -Encourage nutrition particularly protein. Would add a protein supplement like Glucerna 3 times daily DISCHARGE NEPHRO RECS -d/c on torsemide 20 mg daily, K 40 mEq twice daily -nephrology will follow after pt's d/c order weekly bmp x 3 wks; pt may need to schedule lab appts > pls asst -pt to have f/u appt w/ Dr Jama in 1-2 wks; pls schedule -cont sodium limit and daily wts at d/c (2) Volume overload: Plan: Volume status has improved significantly. Patient is now euvolemic 1.5 L fluid restriction to low-sodium diet Needs daily standing weight and strict intake and output to continue Admission and Anticipated Discharge Date Admission Date: March 30, 2021 Subjective Seen in follow-up for ESRD. He feels better. Main complaint is weakness. He would like to be discharged tomorrow. Review of Systems Review of Systems: All other systems were reviewed and negative except as noted in HPI Physical Exam Physical Exam: General exam: Appears comfortable, no acute distress HEENT: Pupils are equal and reactive to light Neck: No JVD, neck is supple trachea is midline Respiratory system: Clear breath sounds bilaterally. Gastrointestinal: Abdomen is soft, non distended, non tender, bowel sounds are present CVS: Regular rate and rhythm. No murmurs, rubs or gallops Musculoskeletal: No joint or muscle tenderness Extremities: Non tender, 1+edema, peripheral pulses are present Neuro: Oriented, no tremors, no focal neurological deficits Skin: No rashes Results & Data ([facility]) Vital Signs (Past 12 Hours) Vital Signs Temp Pulse Pulse Resp BP Pulse Ox 04/18/21 07:35 77 04/18/21 07:05 37.0 C 80 18 110/75 97 04/18/21 03:11 36.6 C 70 18 98/68 L 94
[2021-04-18] MEDS: LIDOCAINE 5% 1 PATCH TD SCH (17:22)
--- NOTE | 2021-04-18 18:51 | Hospitalist Progress Note ---
Date of Service April 18, 2021 Assessment & Plan (1) Volume overload: Plan: (1) Volume overload: (2) Acute on chronic kidney failure: (3) Hyperkalemia: (4) Cardiac amyloidosis: (5) Chronic combined systolic and diastolic CHF (congestive heart failure): (6) Pleural effusion, right: (7) Diabetes mellitus, type II: (8) Paroxysmal atrial fibrillation: (9) Elevated troponin: Plan: per Dr. 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 crea increased to 2.7, now improved to 2.0 Resumed torsemide, but reduced to once daily given marginal blood pressure and kidney function Potassium 40 mix p.o. twice daily Appreciate nephrology service recommendations Needs follow-up with cardiology upon discharge Waiting for rehab placement Hematuria Likely due to trauma from lovelace Catheter Urologist consulted Discussed with Dr. Meade 04/09/21-OK to resume Eliquis Hematuria resolved Needs follow up with Urology upon discharge Hg stable UTI-POA Urine culture: Citrobacter, E. coli Received 3-day course of Rocephin Currently on Keflex Cough Suspected Pneumonia CXR right basal consolidation Antitussives as needed completed Keflex, Doxy 7/7 days Acute renal Failure on CKD 3-4 Recent baseline Cr ~ 2, Cr of 4.71on admission improved to low 2s Needs follow-up with Dr. Hernandez in 1 to 2 weeks upon discharge Needs weekly basic metabolic panel as per nephrology Plan to discharge on torsemide 20 mg twice daily, potassium 20 mEq twice daily --Management per above monitor Hyperkalemia K of 5.7 on presentation Monitor potassium while on supplementation Transaminitis Congestive Hepatopathy Gall Bladder USD:Distended gallbladder with trace pericholecystic fluid and trace sludge. Gallbladder wall remains borderline thickened. This is unchanged compared to the prior abdomen and pelvis CT and could be due to the patient's diffuse edematous state. However, the technologist reported patient tenderness while scanning over the gallbladder. Therefore, a developing cholecystitis cannot be excluded. A follow-up nuclear medicine HIDA scan could be performed for further evaluation. Small right pleural effusion. Hepatic steatosis. Tbili 2.4, AST 420, ALT 297, alk phos 228 INR 1.9>1.4 Evidence of hepatic congestion on CT abd/pelvis in setting of advanced CHF, renal failure GI consulted Consider HIDA scan if required May need outpatient endoscopic ultrasound liver biopsy. Needs follow-up with GI as outpatient Deconditioning PT/OT evaluation Would benefit from Rehab placement Fall precautions, CM consult Palliative consulted Persistent Atrial fibrillation/flutter On Eliquis for stroke prophylaxis Eliquis dose reduced to 2.5 mg BID for poor renal clearance Continue amiodarone, Metoprolol Continue Eliquis Amyloid cardiomyopathy Advanced stage causing severe restrictive cardiomyopathy with decompensated CHF, overall prognosis remains poor Patient is in the process of getting Tafadimis when approved by Insurance Hyperglycemia Last A1C of 6.2, on sliding scale inpatient with BSG AC HS BSGs better DVT Px: Eliquis Code status: DNR/DNI Disposition Plan to discharge to rehab facility when accepted. Admission and Anticipated Discharge Date Admission Date: March 30, 2021 Subjective Follow-up for CHF, etc. Seen resting in bed, comfortable, not in distress States he feels fine overall Denies shortness of breath, chest pain No other new symptoms Review of Systems Review of Systems: all noted and negative except for above Physical Exam Physical Exam: General- oriented x 3, not in distress, speaks in sentences with no effort or accessory muscle use Eyes- anicteric Neck- no JVD Lungs- clear breath sounds bilaterally, no rales/wheezes Heart- normal rate, regular rhythm; no murmurs Abdomen- normal bowel sounds, nondistended, soft, nontender Extremities- no pretibial edema, no calf tenderness Neuro- alert, oriented x 3; no gross focal neurologic deficits Skin- warm & dry Results & Data Results & Data ([place]) Vital Signs (Past 12 Hours) Vital Signs Temp Pulse Pulse Resp BP Pulse Ox 04/18/21 15:58 36.5 C 04/18/21 15:37 83 04/18/21 12:00 36.4 C L 89 18 99/66 L 95 04/18/21 07:35 77 04/18/21 07:05 37.0 C 80 18 110/75 97 all noted and reviewed including below
[2021-04-18] MEDS: ACETAMINOPHEN 325 MG TAB PO PRN (21:27)
[2021-04-19 06:43] LABS: BUN Creatinine Ratio 22.6 (10-20); Calcium 9.1 mg/dl (8.5-10.1); Creatinine Clr Calc Pharmacy 26.7 ml/min; Est GFR (African American) 31.6 ml/min; Est GFR (Non-African American) 27.3 ml/min; Potassium 4.3 mmol/L (3.5-5.1)
[2021-04-19] MEDS: AMIODARONE 200 MG TAB PO SCH (08:15)
[2021-04-19] MEDS: POTASSIUM CHLORIDE CRTAB 20 MEQ TABCR PO SCH (08:16)
[2021-04-19] MEDS: GABAPENTIN 400 MG CAP PO SCH (08:16)
[2021-04-19] MEDS: CALCIUM 600MG + VIT D 400 IU TAB PO SCH (08:16)
[2021-04-19] MEDS: METOPROLOL SUCC 25MG EXT REL TAB PO SCH (08:16)
[2021-04-19] MEDS: GLUCOSAMINE SULFATE 500 MG CAP PO SCH (08:16)
[2021-04-19] MEDS: PANTOprazole 40 MG TAB PO SCH (08:17)
[2021-04-19] MEDS: APIXABAN 2.5 MG TAB PO SCH (08:17)
[2021-04-19] MEDS: TORSEMIDE 10 MG TAB PO SCH (08:17)
[2021-04-19] MEDS: METHOCARBAMOL 500 MG TABLET PO SCH (08:17)
[2021-04-19] MEDS: INSULIN ASPART 100 UNITS/ML 3 ML PEN SC SCH ×2 (08:23→12:50)
[2021-04-19] MEDS: BENZONATATE 100 MG CAPSULE PO SCH (08:26)
[2021-04-19] MEDS: ACETAMINOPHEN 325 MG TAB PO PRN (08:31)
--- NOTE | 2021-04-19 14:21 | XRay Report ---
SINGLE VIEW CHEST CLINICAL HISTORY: Dyspnea. FINDINGS: An AP, portable, upright chest radiograph is compared to study dated 04/07/2021. The examina tion is degraded by portable technique and apical lordotic positioning. A 2-lead cardiac AICD is unch anged in position and partially obscures the left upper chest. The heart is markedly enlarged noting atherosclerotic calcification of the thoracic aorta. There is pulmonary vascular congestion. There is a small right pleural effusion with associated right basilar consolidation. No pneumothorax is seen. The skeletal structures are osteopenic. The bony thorax is grossly intact. Scoliosis is noted in the thoracolumbar spine. IMPRESSION: 1. Cardiomegaly and AICD with pulmonary vascular congestion. 2. Small right pleural effusion with right basilar consolidation. This has decreased in size from 03/13. ACT 112: Negative or not required by law. Electronically signed by: Ry Johnson M.D. 04/19/2021 2:19 PM
--- NOTE | 2021-04-20 00:38 | Discharge Summary ---
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 Was recently admitted from 03/01-03/24 for decompensated heart failure, worsening renal function, abnormal LFTs, palliative consultation and other issues. Poor prognosis was discussed from cardiac standpoint with amyloid cardiomyopathy and EF <20%. Torsemide dose was increased to 40mg BID prior to discharge by nephrology. Also started on potassium supplementation. [id number] was done with insurance for placement in either rehab or SNF and was denied. Patient was discharged home with home health on 03/24. Followed up with Dr. Jama of nephro on 03/24 who discussed prognosis seeming to decline quickly. Increased Torsemide to 60mg BID at that time. Has had falls at home of the past few days, per OP notes. Ambulance was called when home nursing evaluated him and was found to be weak and hypotensive. Patient states his legs were weak earlier today and he was extremely tired and fell to the ground. Hit his head multiple times while attempting to get up. Experiencing constant back pain since the fall. Discussed goals of care and patient still desiring to be treated with IV diuretics. Confirmed code as DNR/DNI. Denies fever, chills, lightheadedness, chest pain, SOB, nausea, vomiting, dysuria, diarrhea or constipation. Still able to make urine. Son Chinmay lives in [facility] and is involved in father's care. Phone # is . Admission Exam Per Admitting Provider Vitals signs as noted above General Appearance: Elderly, chronic ill appearing, no apparent distress Head: normocephalic, Atraumatic Eyes: normal inspection, EOMI Neck: supple, Trachea midline Respiratory/Chest: Decrease breath sounds at bases, No accessory muscle use, +Pacer Cardiovascular: S1, S2, +murmur Abdomen/GI:Soft, Non tender, +distended, Bowel sounds present Extremities/Musculoskeletal:normal inspection, 3+ B/L LE edema Neurologic/Psych:AAOX3, grossly no focal neurological deficits Skin: normal color, warm Principal Diagnosis (1) Volume overload: (2) Acute on chronic kidney failure: (3) Hyperkalemia: (4) Cardiac amyloidosis: (5) Chronic combined systolic and diastolic CHF (congestive heart failure): (6) Pleural effusion, right: (7) Diabetes mellitus, type II: (8) Paroxysmal atrial fibrillation: (9) Elevated troponin: Discharge Exam General- oriented x 3, not in distress, speaks in sentences with no effort or accessory muscle use Eyes- anicteric Neck- no JVD Lungs- clear breath sounds bilaterally, no rales/wheezes Heart- normal rate, regular rhythm; no murmurs Abdomen- normal bowel sounds, nondistended, soft, nontender Extremities- no pretibial edema, no calf tenderness Neuro- alert, oriented x 3; no gross focal neurologic deficits Skin- warm & dry Discharge Data Allergies Allergy/AdvReac Type Severity Reaction Status Date / Time No Known Allergies Allergy Mild Verified 03/30/21 15:12 Consultations 03/30/21 16:51 ED Decision to Admit Stat 03/30/21 17:03 Consult Palliative Care Routine 03/30/21 17:53 Consult Nephrology Routine 03/31/21 08:31 Consult Cardiology Routine 04/07/21 09:00 Consult Gastroenterology Routine 04/07/21 13:42 Consult Urology Routine Ordered Studies 03/30/21 14:20 CT cervical spine wo con Stat CT head/brain wo con Stat 03/30/21 15:29 CT abd pelvis wo con Stat 04/04/21 04:55 CT head/brain wo con Urgent 04/07/21 14:00 US gallbladder Routine Hospital Course (1) Volume overload: (1) Volume overload: (2) Acute on chronic kidney failure: (3) Hyperkalemia: (4) Cardiac amyloidosis: (5) Chronic combined systolic and diastolic CHF (congestive heart failure): (6) Pleural effusion, right: (7) Diabetes mellitus, type II: (8) Paroxysmal atrial fibrillation: (9) Elevated troponin: Plan: per Dr. 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 crea increased to 2.7, now improved to 2.0 Resumed torsemide, but reduced to once daily given marginal blood pressure and kidney function Potassium 40 mix p.o. twice daily Appreciate nephrology service recommendations Needs follow-up with cardiology upon discharge Waiting for rehab placement Hematuria Likely due to trauma from lovelace Catheter Urologist consulted Discussed with Dr. Meade 04/09/21-OK to resume Eliquis Hematuria resolved Needs follow up with Urology upon discharge Hg stable UTI-POA Urine culture: Citrobacter, E. coli Received 3-day course of Rocephin Currently on Keflex Cough Suspected Pneumonia CXR right basal consolidation Antitussives as needed completed Keflex, Doxy 7/7 days Acute renal Failure on CKD 3-4 Recent baseline Cr ~ 2, Cr of 4.71on admission improved to low 2s Needs follow-up with Dr. Hernandez in 1 to 2 weeks upon discharge Needs weekly basic metabolic panel as per nephrology Plan to discharge on torsemide 20 mg twice daily, potassium 20 mEq twice daily --Management per above monitor Hyperkalemia K of 5.7 on presentation Monitor potassium while on supplementation Transaminitis Congestive Hepatopathy Gall Bladder USD:Distended gallbladder with trace pericholecystic fluid and trace sludge. Gallbladder wall remains borderline thickened. This is unchanged compared to the prior abdomen and pelvis CT and could be due to the patient's diffuse edematous state. However, the technologist reported patient tenderness while scanning over the gallbladder. Therefore, a developing cholecystitis cannot be excluded. A follow-up nuclear medicine HIDA scan could be performed for further evaluation. Small right pleural effusion. Hepatic steatosis. Tbili 2.4, AST 420, ALT 297, alk phos 228 INR 1.9>1.4 Evidence of hepatic congestion on CT abd/pelvis in setting of advanced CHF, renal failure GI consulted Consider HIDA scan if required May need outpatient endoscopic ultrasound liver biopsy. Needs follow-up with GI as outpatient Deconditioning PT/OT evaluation Would benefit from Rehab placement Fall precautions, CM consult Palliative consulted Persistent Atrial fibrillation/flutter On Eliquis for stroke prophylaxis Eliquis dose reduced to 2.5 mg BID for poor renal clearance Continue amiodarone, Metoprolol Continue Eliquis Amyloid cardiomyopathy Advanced stage causing severe restrictive cardiomyopathy with decompensated CHF, overall prognosis remains poor Patient is in the process of getting Tafadimis when approved by Insurance Hyperglycemia Last A1C of 6.2, on sliding scale inpatient with BSG AC HS BSGs better DVT Px: Eliquis Code status: DNR/DNI Disposition Plan to discharge to rehab facility when accepted. Total Time Total Time Spent Total Time Spent (In Minutes): 35 minutes Discharge Plan Discharge Items Patient Disposition: Transfer Long-Term Fac Reason For Visit: ACUTE ON CHRONIC RENAL FAILURE, CHF, LIVER FAILURE Discharge Diagnosis: ACUTE ON CHRONIC HEART FAILURE ACUTE ON CHRONIC KIDNEY DISEASE Activity: Resume your previous activity Activity Comment: GRADUALLY TOLERATED, ALWAYS WITH ASSISTANCE Lifting: Wait until after follow-up appointment Exercise/Sports: Wait until after follow-up appointment Driving/Machine Use: NO DRIVING Non-emergency contact: Primary Care Provider and Assembling Motor Builder Call non-emergency contact if: you have any medication questions, your symptoms worsen, your pain is not controlled, your pain is worsening, your pain is unusual for you, your pain is concerning for you and you have a fever Follow-up/Referrals: Morteza Almanzar DO [Assembling Motor Builder] - (Date & Time 04/20/2021 11:00 AM Provider Gustabo Llamas DO Department Cardiology, [facility] ) Nikko Jama MD [Surgeon] - (Date & Time 05/10/2021 11:20 AM Provider Nikko aJma MD Department Nephrology, [facility] ) Mario Espinoza MD [Hospitalist] - Gerhard Jimenez MD [Primary Care Provider] - (Date & Time 04/19/2021 11:00 AM Provider Gerhard Jimenez MD Department Family [facility] ) Diet: Heart Healthy and Low Sodium (2gm) Fluids: 1500ml (6 cups) Addtl Attending Provider Instructions: PLEASE REFER TO YOUR NEW MEDICATION LIST AND FOLLOW INSTRUCTIONS CAREFULLY. YOUR NEW MEDICATION INCLUDE: TORSEMIDE- water pill for congestive heart failure METOLAZONE- as needed additional water pill (two times a week) for worsening leg edema Check BMP weekly x 3 to monitor your electrolytes and renal function Continue 1.5 Liter fluid restriction daily Continue physical and occupational therapy Continue monitor your blood sugar and titrate insulin if needed Fall precaution FOLLOW UP WITH PRIMARY CARE PHYSICIAN OUTLINED ABOVE. FOLLOW UP WITH HEMMING AND TACKING MACHINE OPERATOR DR. ALMANZAR IN 2 WEEKS. PLEASE CALL HIS OFFICE FOR AN APPOINTMENT. CONTACT INFORMATION OUTLINED ABOVE. FOLLOW UP WITH BUSINESS INTEGRATION ANALYST DR. JAMA IN 1-2 WEEKS. PLEASE CALL HIS OFFICE FOR AN APPOINTMENT. CONTACT INFORMATION OUTLINED ABOVE. FOLLOW UP WITH UNDER SEAL OPERATOR DR. ESPINOZA IN 2-3 WEEKS.PLEASE CALL HIS OFFICE FOR AN APPOINTMENT. CONTACT INFORMATION OUTLINED ABOVE. PLEASE CALL YOUR PRIMARY CARE PHYSICIAN OR RETURN TO THE ER IF WITH WORSENING OF SYMPTOMS. Call your Primary Care doctor if any of the following symptoms or problems start or get worse: Shortness of breath or difficulty breathing Wake up at night short of breath Chest pain Cough Swelling of your hands, feet, or legs More fatigued or tired with your normal activity Palpitations - sudden fast heart beats WEIGHT Weigh yourself every morning after using the bathroom. Use the same scale. Wear the same amount of clothing. Write your weight down on a chart. Call your Primary Care doctor if you gain more than 2-3 pounds in 1-2 days. MEDICATIONS Use this discharge instruction sheet for medication instructions. Take your medications at the time your doctor ordered. Do not skip a dose of your medicines. If you miss a dose of medicine, take it as soon as possible, but DO NOT JOHN BLE A DOSE. Read your medicine information when you get home. Know all of the side effects of your medicine. If in doubt, ask your pharmacist Call your Primary Care doctor's office if you have any side effects. Be sure all of your doctors know what medicine and herbs you take (including cold, flu, and herbal medicine). Take the following with you to your follow-up doctor appointments: Weight Chart Medication List List of questions Do not drink excessive alcohol, beer or wine. Who to Call and When: Call 911 or go to the Emergency Room if: If at any time you feel your situation is an emergency You have tightness or pain in your chest that does not go away with rest or Nitroglycerin You are very short of breath even with rest Pending Studies at Discharge: Yes Studies:: PLEASE DRAW WEEKLY BASIC METABOLIC PROFILE AND FORWARD RESULTS TO DR. KACEY LAW BUSINESS INTEGRATION ANALYST Stand-Alone Forms: My [facility] Skilled Items Patient informed of condition?: Yes DNR: Yes Discharge Level of Care: Skilled Communicable Disease: No Discharge Prognosis: Stable Lines: None Urinary Catheter: No Medications and DC Order Prescriptions: New benzonatate [Tessalon Perles] 100 mg Capsule 100 mg PO BID PRN (Reason: COUGH) Qty: 20 RF: 1 metolazone 2.5 mg tablet 2.5 mg PO UD PRN (Reason: worsending edema) Qty: 20 RF: 1 torsemide 10 mg Tablet 20 mg PO DAILY 30 Days Qty: 60 RF: 0 Continued methocarbamol 500 mg tablet 500 mg PO BID Qty: 90 RF: 0 metoprolol succinate [Toprol XL] 25 mg Tablet Extended Release 24 Hr 25 mg PO BID RF: 0 amiodarone 200 mg Tablet 200 mg PO QAM RF: 0 Eliquis 2.5 mg tablet 2.5 mg PO Q12H Qty: 60 RF: 3 glucosamine-chondroitin [Cidaflex] 500-400 mg Tablet 2 tab PO QAM RF: 0 oxycodone [Roxicodone] 5 mg tablet 5 mg PO Q6H PRN (Reason: Pain) RF: 0 gabapentin 400 mg capsule 400 mg PO BID RF: 0 omeprazole 20 mg Capsule,Delayed Release(Dr/Ec) 20 mg PO BID RF: 0 green tea extract 375 mg Capsule 0 mg PO DAILY RF: 0 calcium carbonate-vitamin D3 [Calcium 500 + D] 500 mg(1,250mg) -200 unit Tablet 1 tab PO DAILY RF: 0 patisiran (lipid complex) 2 mg/mL Solution 0 mg IV .[id number] RF: 0 (DME) pen needle,diabetic, disp unit 32 gauge x 5/32" needle See Rx Instructions .ROUTE .MEDSUPPLY Qty: 100 RF: 0 cetirizine 10 mg Tablet 10 mg PO DAILY PRN (Reason: prn) RF: 0 ergocalciferol (vitamin D2) [Vitamin D2] 1,250 mcg (50,000 unit) capsule 1,250 mcg PO MONTHLY RF: 0 Changed Lantus Solostar U-100 Insulin 100 unit/mL (3 mL) insulin pen 12 unit SC DAILY Qty: 0 RF: 0 potassium chloride [Klor-Con M20] 20 mEq Tablet,Er Particles/Crystals 40 meq PO BID 30 Days Qty: 120 RF: 0 Discharge Orders: Discharge Order (Routine); Ordered 04/19/21 Ordered By: Ryan Álvarez Admission Data Admit Date/Time: 03/30/21 17:02 Attending Provider: Ryan Álvarez Admit Provider: Edison Jenkins Primary Care Provider: Gerhard Jimenez Other Providers: Zora Chauhan ; Yulissa Benitez ; Gene Prajapati ; Susan Agrawal ; Mario Espinoza ; Fabian Meade Other Interventions: Discharge Summary Assessment (RN) Last Done: 04/19/21 13:53
== END 2021-04-19 14:58 | DRG 291 ==
LOC: ED 13:14 → 2S 17:02 → SUATTDRO 17:02 → 2S 21:55 → 2N 04-15 12:17